=== PATIENT | female | born 1940 | race Caucasian/White ===

== ENCOUNTER 2019-05-25 13:50 | Outpatient (CLI) | payer MEDICARE, MEDICAID, SELFPAY | END 2019-05-25 13:51 | disposition home or self-care (01) | LOC: LAB 05-26 16:37 | PROVIDERS: PCP Internal Medicine; Visit Provider Internal Medicine | DX: N39.0 Urinary tract infection, site not specified (principal) | CPT/HCPCS: 81003; 87077; 87086; 87186 ==

== ENCOUNTER 2019-06-21 09:03 | Outpatient (CLI) | payer MEDICARE, MEDICAID, SELFPAY ==
--- NOTE | 2019-06-21 09:16 | MM_ITS ---
WS: [id number] BILATERAL SCREENING DIGITAL MAMMOGRAM WITH CAD HISTORY: SCREENING COMPARISON: 07/07/2016 and 05/01/2015 Bilateral CC and MLO views submitted. Computer aided detection analyzed. Breast composition: There are scattered areas of fibroglandular density. No suspicious masses, microc alcifications or architectural distortion. Bilateral scattered calcifications. Stable lymph node uppe r outer quadrant RIGHT breast. MM/[id number] IMPRESSION: BI-RADS: 2-Benign FOLLOW UP: 1 Year Follow-up
== END 2019-06-21 09:04 | disposition home or self-care (01) ==
LOC: RADSHAW 09:09
PROVIDERS: Family Provider Internal Medicine; PCP Internal Medicine; Visit Provider Plastic Surgery
DX: Z12.31 Encounter for screening mammogram for malignant neoplasm of breast (principal)
CPT/HCPCS: 77067

== ENCOUNTER 2019-07-14 22:19 | Inpatient (IN) | payer MEDICARE, MEDICAID, SELFPAY ==
[2019-07-14 22:20] VITALS: BP 188/76; PULSE 66; RESP 16; TEMP 36.8; O2SAT 99; BMI 34.7
--- NOTE | 2019-07-14 22:33 | CTR_ITS ---
PROCEDURE INFORMATION: Exam: CT Abdomen And Pelvis With Contrast Exam date and time: 07/14/2019 11:33 PM Age: 79 years old Clinical indication: Abdominal pain; Acute; Prior surgery; Surgery date: 6+ months; Surgery type: Hernia repair, cholecystectomy, appendectomy, hysterectomy; Additional info: Abd pain TECHNIQUE: Imaging protocol: Computed tomography of the abdomen and pelvis with intravenous contrast. Total DLP: 1803.49 mGy-cm Radiation optimization: All CT scans at this facility use at least one of these dose optimization techniques: automated exposure control; mA and/or kV adjustment per patient size (includes targeted exams where dose is matched to clinical indication); or iterative reconstruction. Contrast material: OMNI 300; Contrast volume: 95 ml; Contrast route: 22; COMPARISON: CT abdomen pelvis wo con [id number] 2017-03-26 21:02 FINDINGS: Lungs: There is a pulmonary parenchymal calcification consistent with remote granulomatous organism exposure. Liver: Normal. No mass. Gallbladder and bile ducts: Cholecystectomy clips in the right upper quadrant. Pronounced intra and extrahepatic biliary duct dilatation with the common biliary duct measuring 2.6 cm, recommend GI follow-up. Pancreas: Normal. No ductal dilation. Spleen: Normal. No splenomegaly. Adrenals: Normal. No mass. Kidneys and ureters: Numerous calculi in the left kidney, largest measuring 1.7 cm with an obstructing left ureteral pelvic junction 1 cm calculus causing moderate to severe left hydronephrosis. Stomach and bowel: Mild colonic diverticulosis without evidence for acute diverticulitis. Appendix: Appendectomy. Intraperitoneal space: Unremarkable. No free air. No significant fluid collection. Vasculature: Unremarkable. No abdominal aortic aneurysm. Lymph nodes: Unremarkable. No enlarged lymph nodes. Bladder: Unremarkable as visualized. Reproductive: Hysterectomy. Bones/joints: Screws in the proximal left femur. Moderate to severe lumbar spondylosis, stenosis, with a level convex curvature. Soft tissues: Unremarkable. CT/CT abdomen pelvis w con* [id number] IMPRESSION: 1. Cholecystectomy clips in the right upper quadrant. Pronounced intra and extrahepatic biliary duct dilatation with the common biliary duct measuring 2.6 cm, recommend GI follow-up. 2. Numerous calculi in the left kidney, largest measuring 1.7 cm with an obstructing left ureteral pelvic junction 1 cm calculus causing moderate to severe left hydronephrosis. Radiation Dose CTDIVOL = (mGy): DLP = 1803.49 (mGy-cm)
--- NOTE | 2019-07-14 22:35 | PC.NURSE ---
Patient states her pain started two days ago in her abdomen. Patient states that she is feeling hot and then cold. Patient states that the pain is on both sides and the bottom of her abdomen.
[2019-07-14 22:37] VITALS: BP 167/63; PULSE 60; RESP 14; O2SAT 98
[2019-07-14] MEDS: ondansetron 2 mg/ML SDV 2 mL 4 MG IVP (22:50)
[2019-07-14 22:51] VITALS: RESP 16
[2019-07-14] MEDS: sodium chloride 0.9% 1,000 ML 999 ML IV (22:51)
[2019-07-14] MEDS: morphine 4 mg/mL SDV 1 mL 2 MG IVP (22:51)
[2019-07-14 23:09] VITALS: BP 175/67; PULSE 63; RESP 14; O2SAT 98
[2019-07-14 23:09] LABS: Basophils % 0.2 %; Eosinophils # 0.1 10^3/uL (0.0-0.8); Eosinophils % 1.9 %; Hematocrit 31.9 % (37.0-47.0); Hemoglobin 9.8 g/dL (11.5-15.3); Lymphocytes % 19.2 %; Mean Corpuscular HGB Conc 30.7 g/dL (30.0-36.0); Mean Corpuscular Hemoglobin 29.1 pg (28.0-34.0); Mean Corpuscular Volume 94.7 fL (81-99); Mean Platelet Volume 10.1 fL (7.4-10.4); Monocytes # 0.6 10^3/uL (0.2-0.9); Monocytes % 11.3 %; Neutrophils # 3.5 10^3/uL (1.8-7.7); Nucleated Red Blood Cells % 0 %; Platelet Count 124 10^3/cmm (130-400); Red Blood Count 3.37 10^6/uL (4.1-5.3); Red Cell Distribution Width 12.9 % (12.1-15.1); White Blood Count 5.2 10^3/uL (4.0-10.0)
--- NOTE | 2019-07-14 23:16 | ED_ITS ---
Entered by Hansa Novoa, acting as scribe for Jamie Gamino DO HPI - Abdominal Pain General: Chief Complaint: Abdominal Pain Stated Complaint: ABD PAIN Time Seen by Provider: 07/14/19 22:30 History of Present Illness: HPI narrative: 79-year-old female presents from prison with complaining of left-sided abdominal pain frequency is dysuria. Denies fever. She denies any MD elicited complaint: flank pain Location: LLQ and L flank Quality: cramping and burning Radiation: suprapubic and L flank Associated Symptoms: Reports dysuria and fever(s); Denies chills, coffee ground emesis, constipation, GI cramping, diarrhea, heartburn, hematochezia, hematuria, hematemesis, melena, nausea, syncope and vomiting Review of Systems Narrative: 79yo female presents with abd pain, burning with urination, fever, and sweats. Patient denies any blood in urine, nausea, or diarrhea. She is a prison. Const: Reports: fever and other (sweats); Denies: chills, body aches, fatigue, malaise or night sweats Eyes: Denies: change in vision or blurry vision ENMT: Denies: throat pain, oral sores/lesions, dental pain, nasal discharge or nasal congestion Card: Denies: chest pain, palpitations, irregular heart rhythm, edema, syncope, shortness of breath on exertion, shortness of breath when lying down or leg pain with exertion Resp: Denies: shortness of breath, productive cough, non-productive cough or wheezing GI: Reports: abdominal pain; Denies: nausea, vomiting, vomiting blood, coffee grounds in vomit, difficulty swallowing, heartburn/indigestion, diarrhea, constipation, cramping, blood in stool or black tarry stool : Reports: painful urination; Denies: flank pain, urinary frequency, urinary urgency, urinary incontinence or blood in urine Musc: Denies: neck pain, back pain, extremity pain, extremity swelling, joint pain or joint swelling Skin/Breast: Denies: rash, itching or redness Neuro: Denies: headache, numbness in extremities, weakness in extremities, changes in sensation, lack of coordination, difficulty walking, frequent falls, dizziness, vertigo or confusion Psych: Denies: anxiety, depression, loss of interest, visual hallucinations, auditory hallucinations, suicidal ideation or homicidal ideation Endo: Denies: excessive urination, excessive thirst, tired all the time or cold intolerance Edu/Lymph: Denies: easy bruising, easy bleeding, petechiae, enlarged lymph nodes or tender lymph nodes PFSH ED PFSH: Medical History (Updated 07/15/19 @ 11:00 by Jamie Gamino DO) CAD in [place] artery Chronic back pain Chronic cystitis GERD (gastroesophageal reflux disease) History of CVA (cerebrovascular accident) History of diabetes mellitus Osteoarthritis Peripheral artery disease Polyneuropathy Post herpetic neuralgia Surgical History (Updated 07/15/19 @ 04:26 by Kin Carney MD) H/O bladder repair surgery H/O: hysterectomy Hip fracture History of cataract surgery History of cholecystectomy S/P tonsillectomy Family History (Updated 07/15/19 @ 04:27 by Kin Carney MD) Other Kidney malignancy Social History (Updated 07/15/19 @ 04:27 by Kin Carney MD) Smoking and tobacco status: former smoker Housing: Senior Living Marital status: Current occupational status: retired Physical Exam Const: COMMON NORMALS: average body habitus, oriented x3 and alert GENERAL APPEARANCE: cooperative, comfortable, well kempt and well developed NUTRITIONAL APPEARANCE: obese ORIENTATION/CONSCIOUSNESS: Yes awake, Yes oriented to person and Yes oriented to place HENMT: COMMON NORMALS: normocephalic, head/scalp atraumatic, EAC's normal, TM's normal bilaterally, external nose normal, moist oral mucous membranes and oropharynx normal HEAD & SCALP: normocephalic and atraumatic NOSE: external nose normal EXTERNAL AUDITORY CANAL: EAC's normal TYMPANIC MEMBRANE: TM's normal bilaterally MOUTH: oral and palatal mucosa normal, lip normal and tongue normal THROAT: posterior oropharynx normal and tonsils normal Eye: COMMON NORMALS: PERRL, EOMs intact bilaterally, conjunctivae normal and no scleral icterus CONJUNCTIVA: Yes conjunctivae normal PUPIL: Yes PERRL Neck/C-Spine: COMMON NORMALS: full ROM, no lymphadenopathy, supple, no meningeal signs and thyroid normal THYROID: thyroid normal and asymmetrical Lymph: LYMPHATIC: no lymphadenopathy noted Resp: COMMON NORMALS: normal respiratory effort, no retractions, no use of accessory muscles and clear to auscultation bilaterally AUSCULTATION: clear to auscultation bilaterally Cardio: COMMON NORMALS: regular rate and regular rhythm RATE: regular rate RHYTHM: regular rhythm HEART SOUNDS: no murmurs GI: COMMON NORMALS: normal to inspection, nondistended, normoactive bowel sounds, soft to palpation and no hepatosplenomegaly PALPATION: Yes soft and Yes no hepatosplenomegaly : BLADDER/KIDNEY EXAM: Yes CVA tenderness Back/Pelvis: GENERAL BACK: Yes CVA tenderness CVA tenderness: left LUMBAR SPINE/LOWER BACK: Yes normal to inspection Extremity: COMMON NORMALS: no clubbing, cyanosis or edema, no calf tenderness and no pedal edema Neuro: COMMON NORMALS: oriented x3 SENSORIUM/ORIENTATION: Yes alert, Yes oriented to person and Yes oriented to place MENINGEAL SIGNS: Yes no meningeal signs Psych: APPEARANCE: Yes well kempt Skin: COMMON NORMALS: no rashes or lesions noted and skin turgor normal GENERAL SKIN EXAM: no rashes or lesions noted and turgor normal Course ED course: Patient initially seen and labs ordered including a CT at change of shift CT is still pending. Care turned over to Dr. Bradley he will follow-up on the CT and make final disposition. Vital Signs: Vital signs: Vital Signs Temperature 98.9 F 07/15/19 10:10 Pulse Rate 73 07/15/19 10:10 Respiratory Rate 19 H 07/15/19 10:10 Blood Pressure 185/73 07/15/19 10:10 Pulse Oximetry 96 07/15/19 10:10 MDM - Abdominal Pain Lab Data: Labs: Lab Results 07/14/19 07/14/19 07/15/19 Range/Units 22:50 22:50 00:04 WBC 5.2 (4.0-10.0) 10^3/ uL RBC 3.37 L (4.1-5.3) 10^6/u L Hgb 9.8 L (11.5-15.3) g/dL Hct 31.9 L (37.0-47.0) % MCV 94.7 (81-99) fL MCH 29.1 (28.0-34.0) pg MCHC 30.7 (30.0-36.0) g/dL RDW 12.9 (12.1-15.1) % Plt Count 124 L (130-400) 10^3/c mm MPV 10.1 (7.4-10.4) fL Neut % (Auto) 67.0 % Lymph % (Auto) 19.2 % [place] % (Auto) 11.3 % Eos % (Auto) 1.9 % Baso % (Auto) 0.2 % Neut # (Auto) 3.5 (1.8-7.7) 10^3/u L Lymph # (Auto) 1.0 (0.8-4.8) 10^3/u L [place] # (Auto) 0.6 (0.2-0.9) 10^3/u L Eos # (Auto) 0.1 (0.0-0.8) 10^3/u L Baso # (Auto) 0.0 (0.0-0.1) 10^3/u L Nucleated RBC % (a uto) 0 % Nucleated RBCs # 0.0 /100WBC Sodium 132 L (136-145) mmol/L Potassium 4.1 (3.5-5.1) mmol/L Chloride 97 L (98-107) mmol/L Carbon Dioxide 26 (22-29) mmol/L Anion Gap 13.1 (5-19) BUN 16 (8-23) mg/dL Creatinine 0.9 (0.5-0.9) mg/dL Glucose 118 H (65-115) mg/dL Calcium 9.2 (8.5-10.5) mg/dL Total Bilirubin 0.8 (0.15-1.2) mg/dL AST 27 (0-32) U/L ALT 17 (0-33) U/L Alkaline Phosphata se 181 H (35-105) IU/L Total Protein 8.4 (6.6-8.7) g/dL Albumin 3.2 L (3.5-5.2) g/dL Globulin 5.2 H (1.3-4.6) g/dL Lipase 5 L (13-60) U/L Urine Color Straw (Yellow) Urine Appearance Clear (CLEAR) Urine pH 7 (5-7) Ur Specific Gravit y 1.010 (1.005-1.030) Urine Protein Neg (Negative) Urine Glucose (UA) Norm (Normal) Urine Ketones Negative (Negative) Urine Blood 2+ H (Negative) Urine Nitrate Negative (Negative) Urine Bilirubin Neg (NEGATIVE) Urine Urobilinogen Norm (Negative) mg/dL Ur Leukocyte Opal ase Negative (Negative) Urine RBC Rare (0-2) /hpf Urine WBC Rare (0-5) /hpf Ur Squamous Epith Cells Rare (0-5) Urine Bacteria Trace (NONE) Discharge Plan Discharge Admit Provider: Kin Carney Clinical Impression: Staghorn renal calculus, Calculus of proximal left ureter, Hypertension Condition: Stable Discharge Orders: Discharge Order (Routine); Ordered 07/15/19 Ordered By: Kin Carney Transfer Out of Facility (Order); Ordered 07/15/19 Ordered By: Kin Carney Interventions: ED Discharge Assessment Last Done: 07/15/19 03:04 Discharge Date/Time: 07/15/19 03:38 Coding Level of Care Code ED Deputy Controller for Chg Fwd Exam Comprehensive The documentation recorded by the Bright ellis Bailey Leadawn, accurately reflects the service I personally performed and the decisions made by Hanny espinoza Curtis L, DO Jul 14, 2019 22:19
[2019-07-14 23:29] LABS: Alanine Aminotransferase 17 U/L (0-33); Albumin Level 3.2 g/dL (3.5-5.2); Alkaline Phosphatase 181 IU/L (35-105); Anion Gap 13.1 (5-19); Aspartate Amino Transferase 27 U/L (0-32); Blood Urea Nitrogen 16 mg/dL (8-23); Calcium 9.2 mg/dL (8.5-10.5); Carbon Dioxide 26 mmol/L (22-29); Chloride 97 mmol/L (98-107); Globulin 5.2 g/dL (1.3-4.6); Glucose 118 mg/dL (65-115); Lipase 5 U/L (13-60); Potassium 4.1 mmol/L (3.5-5.1); Sodium 132 mmol/L (136-145); Total Bilirubin 0.8 mg/dL (0.15-1.2); Total Protein 8.4 g/dL (6.6-8.7)
[2019-07-15] VITALS (25 sets, daily range): BP systolic 160–224; BP diastolic 69–110; PULSE 67–83; RESP 14–20; TEMP 36.7–37.2; O2SAT 93–100
--- NOTE | 2019-07-15 | SCC_ITS ---
Procedure Done: Cystoscopy, left retrograde ureteropyelogram, left flexible ureteroscopy, unsuccessful attempt at left ureteral stenting. Could not pass guidewire 153.1 seconds of fluoroscopic guidance, for a cumulative dose of 73.88 mGy, was provided to Dr. Carney by the radiology department. C-arm images of the abdomen were saved for the patient's permanent record. [facility]
[2019-07-15] MEDS: sodium chlor 0.9% + KCl 20 mEq 20 MEQ/1,000 ML BAG 125 MEQ IV (00:16)
[2019-07-15 00:32] LABS: Add Urine Culture? No; Add Urine Microscopic? YES; Bacteria Urine TRACE; Bilirubin Urine Neg (NEGATIVE); Blood Urine 2+ (Negative); Glucose Urine UA Norm (Normal); Ketones Urine Negative (Negative); Leukocyte Esterase Urine Negative (Negative); Nitrate Urine Negative (Negative); Protein Urine Neg (Negative); RBC Urine RARE /hpf (0-2); Squamous Epithelial Cell Urine RARE (0-5); Urine Appearance Clear (CLEAR); Urine Color Straw (Yellow); Urobilinogen Urine Norm (Negative); WBC Urine RARE /hpf (0-5); pH Urine 7 (5-7)
--- NOTE | 2019-07-15 00:33 | PC.NURSE ---
Nurse notified me of patient on the bedside commode. Bedding was wet so linen and pads were changed and was assisted back into bed some assistance from both the nurse and I.
--- NOTE | 2019-07-15 00:47 | PC.NURSE ---
patient to CT
[2019-07-15] MEDS: iohexol 300 mg/mL 100 mL Btl IV (00:48)
[2019-07-15] MEDS: diphenhydrAMINE 50 mg/mL SDV 1mL 25 MG IVP (02:17)
[2019-07-15] MEDS: morphine 4 mg/mL SDV 1 mL IVP ×2 (02:55→05:52)
--- NOTE | 2019-07-15 03:35 | P.HP_ITS ---
Providers/Chief Complaint Admitting Physician: Kin Carney MD Primary Care Provider: Sudheer Wood MD Chief Complaint: ABD PAIN History of Present Illness Daksha Machuca is a 79 year old female well known to me for history of recurrent UTIs consistent with chronic cystitis. Also known to have an asymptomatic LEFT renal calculus that at one point she chose to have treatment with ESWL but canceled prior to because of lack of symptoms. I believe that occurred somewhere around 2005. The stone had been periodically imaged on KUBs and occasional CT and demonstrated no significant change. CT in 2016 showed stone in LLP without obstruction. KUB showed no change in stone. Renal US in confirmed no hydronephrosis. Was last seen in Feb and again in after > 2 year absence for RUTIs. Pansensitive E. coli treated at [facility] with Macrobid Low colony Proteus mirablilis resistant to Macrobid. Changed to CEFUROXIME based on sensitivity. At the February visit she complained of symptoms more consistent with CHRONIC CYSTITIS. Culture grew VRE and she was changed to Doxycycline. (Has a history of VRE in 2016 requiring PICC line and Daptomycin x 14 days.) At followup last visit 04/26/19 her chronic cystitis symptoms had improved but not resolved, KUB and US noted as above. The DOXYCYCLINE was continued and she was rescheduled for 3 months. In the past because of RUTIs she had been placed on METHENAMINE HIPPURATE for chronic suppression. Current stay initiated for symptoms consistent with renal colic on LEFT. Pain poorly controlled at [facility] and transported for further evaluation. Symptoms: She describes nausea vomiting low back pain and left-sided pain for about 2 weeks now. She also thinks she's had some symptoms suspicious for recurrent cystitis. Denies systemic symptoms currently. She is unaware of having been on any particular different antibiotics. Her chart currently reflects No antibiotics. describes her pain this morning is better but still significant. Workup: CT: Partial staghorn LEFT renal calculus new since prior imaging. LEFT UPJ stone with obstruction and moderate hydronephrosis. Was previously located in LLP WBC: 5.2 UA: No WBC, Nitrite negative. ED Plan: Admit for refractory pain. Keep NPO recommendations: 1. Cystoscopy and left ureteral stent placement this morning urgently given her history of recurrent UTIs an currently obstructing left proximal ureteral stone and evidence of a new partial staghorn. 2. Culture urine 3. I will ask the hospitalist team assistance in medical management postoperatively. 4. I discussed the procedure in detail with the patient. She has given informed consent to proceed for cystoscopy and left ureteral stent placement. Review of Systems Const: Reports: change in appetite, fatigue and malaise; Denies: fever or chills Eyes: Denies: change in vision ENMT: Reports: change in hearing (chronic hearing loss) Card: Denies: chest pain or palpitations Resp: Denies: shortness of breath, productive cough or wheezing GI: Reports: abdominal pain, nausea and vomiting : Reports: urinary frequency, urinary urgency and other (left flank pain) Skin/Breast: Denies: rash Neuro: Reports: weakness in extremities Psych: Reports: depression; Denies: anxiety Endo: Denies: cold intolerance or hot flashes Edu/Lymph: Denies: easy bruising, easy bleeding or enlarged lymph nodes All/Imm: Denies: hives or throat swelling Medications/Allergies Home Medications Medication Instructions Recorded Confirmed Last Taken Type Neurontin 800 mg PO DAILY 07/14/19 07/14/19 Unknown History bisacodyl 10 mg VT DAILY 07/14/19 07/14/19 Unknown History cholecalciferol (vitamin D3) 1,000 unit PO DAILY 07/14/19 07/14/19 Unknown History [Vitamin D3] gabapentin 600 mg PO DAILY 07/14/19 07/14/19 Unknown History pneumoc 13-steve conj-dip cr(PF) 0.5 ml IM UNK 07/14/19 07/14/19 Unknown History [Prevnar 13 (PF)] Allergies Allergy/AdvReac Type Severity Reaction Status Date / Time amoxicillin Allergy Unknown Verified 07/14/19 22:34 cefepime Allergy Unknown Verified 07/14/19 22:34 codeine Allergy Unknown Verified 07/14/19 22:34 Influenza Virus Vaccines Allergy Unknown Verified 07/14/19 22:34 iodine Allergy Unknown Verified 07/14/19 22:34 Quinolones Allergy Unknown Verified 07/14/19 22:34 Sulfonylureas Allergy Unknown Verified 07/14/19 22:34 PFSH Acute PFSH: Medical History (Updated 07/15/19 @ 04:26 by Kin Carney MD) CAD in [place] artery Chronic back pain Chronic cystitis GERD (gastroesophageal reflux disease) History of CVA (cerebrovascular accident) History of diabetes mellitus Osteoarthritis Peripheral artery disease Polyneuropathy Post herpetic neuralgia Surgical History (Updated 07/15/19 @ 04:26 by Kin Carney MD) H/O bladder repair surgery H/O: hysterectomy Hip fracture History of cataract surgery History of cholecystectomy S/P tonsillectomy Family History (Updated 07/15/19 @ 04:27 by Kin Carney MD) Other Kidney malignancy Social History (Updated 07/15/19 @ 04:27 by Kin Carney MD) Smoking and tobacco status: former smoker Housing: Long-Term Marital status: Current occupational status: retired Vitals/I&O/Wt Last Vital Signs Temp 98.3 F 07/14/19 22: Pulse 69 07/15/19 03:04 Resp 14 07/15/19 03:04 BP 180/90 07/15/19 03:04 Pulse Ox 93 07/15/19 03:04 Weight last 48 hrs Weight 190 lb Physical Exam Const: COMMON NORMALS: alert and well nourished GENERAL APPEARANCE: well kempt and well developed ORIENTATION/CONSCIOUSNESS: not confused HENMT: HEAD & SCALP: normocephalic and atraumatic Eye: COMMON NORMALS: conjunctivae normal and no scleral icterus Neck/C-Spine: GENERAL: Yes normal visual inspection Lymph: LYMPHATIC: no lymphadenopathy noted and no lymphedema noted Resp: COMMON NORMALS: normal respiratory effort EFFORT & INSPECTION: No labored and No actively coughing AUSCULTATION: clear to auscultation bilaterally Cardio: COMMON NORMALS: regular rate, regular rhythm and no murmurs RATE: regular rate RHYTHM: regular rhythm BRUITS: no carotid bruits Extremity: COMMON NORMALS: no clubbing, cyanosis or edema Neuro: SENSORIUM/ORIENTATION: Yes alert Psych: COMMON NORMALS: mental status grossly normal APPEARANCE: Yes grossly normal and Yes well kempt ATTITUDE: Yes calm and Yes engaged Skin: COMMON NORMALS: no rashes or lesions noted and skin turgor normal GENERAL SKIN EXAM: no rashes or lesions noted Data : 07/15/19 05:02 07/15/19 05:02 A&P Assessment and plan (1) Calculus of proximal left ureter: newly obstructing left UPJ stone. Concern because occurring in face of recurrent UTI and per patient's report increasing lower urinary tract symptoms consistent with her UTI previously Status: Acute Code(s): N20.1 - Calculus of ureter (2) Staghorn renal calculus: New finding Status: Acute Code(s): N20.0 - Calculus of kidney (3) History of recurrent UTI (urinary tract infection): she suspicious that her lower urinary tract symptoms are consistent with prior chronic cystitis. Status: Acute Code(s): Z87.440 - Personal history of urinary (tract) infections (4) Hypertension: required IV enalapril in the emergency department. Status: Acute Code(s): I10 - Essential (primary) hypertension Attestations Medical Necessity Statement*: refractory pain secondary to newly diagnosed left proximal ureteral stone. high-risk patient due to history of chronic cystitis and now with obstructing stone and evidence of a partial staghorn possibly related to chronic urinary tract infection. recommended surgical placement of left ureteral stent. Coding Level of Care Code Acute Instrument Worker for Paramjit Fwd Diagnoses Calculus of proximal left ureter N20.1 Staghorn renal calculus N20.0 History of recurrent UTI (urinary tract infection) Z87.440 Hypertension I10
[2019-07-15 05:38] LABS: Basophils % 0.2 %; Eosinophils # 0.1 10^3/uL (0.0-0.8); Eosinophils % 1.2 %; Hematocrit 30.9 % (37.0-47.0); Hemoglobin 9.3 g/dL (11.5-15.3); Lymphocytes # 0.6 10^3/uL (0.8-4.8); Lymphocytes % 14.5 %; Mean Corpuscular HGB Conc 30.1 g/dL (30.0-36.0); Mean Corpuscular Hemoglobin 29.4 pg (28.0-34.0); Mean Corpuscular Volume 97.8 fL (81-99); Mean Platelet Volume 10.1 fL (7.4-10.4); Monocytes # 0.5 10^3/uL (0.2-0.9); Monocytes % 11.8 %; Neutrophils # 3.1 10^3/uL (1.8-7.7); Neutrophils % 71.8 %; Nucleated Red Blood Cells % 0 %; Platelet Count 90 10^3/cmm (130-400); Red Blood Count 3.16 10^6/uL (4.1-5.3); Red Cell Distribution Width 12.9 % (12.1-15.1); White Blood Count 4.3 10^3/uL (4.0-10.0)
[2019-07-15] MEDS: enalaprilat 1.25 mg/mL Inj IVP (05:53)
[2019-07-15] MEDS: sodium chloride 0.9% 1,000 ML 100 ML IV (05:54)
[2019-07-15 06:08] LABS: Alanine Aminotransferase 15 U/L (0-33); Albumin Level 2.3 g/dL (3.5-5.2); Alkaline Phosphatase 151 IU/L (35-105); Aspartate Amino Transferase 25 U/L (0-32); Blood Urea Nitrogen 14 mg/dL (8-23); Calcium 8.6 mg/dL (8.5-10.5); Carbon Dioxide 23 mmol/L (22-29); Chloride 100 mmol/L (98-107); Globulin 4.9 g/dL (1.3-4.6); Glucose 108 mg/dL (65-115); Sodium 134 mmol/L (136-145); Total Bilirubin 0.7 mg/dL (0.15-1.2); Total Protein 7.2 g/dL (6.6-8.7)
--- NOTE | 2019-07-15 07:58 | SC_ITS ---
WS: [id number] C-arm FL for Urology REASON FOR EXAM: intra-op FINDINGS: C-arm images intraoperative were nondiagnostic. SC/C-arm FL for Urology IMPRESSION: Nondiagnostic views intraoperative.
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
[2019-07-15] MEDS: iohexol 300 mg/mL 50 mL Btl (OR ONLY) XX (08:42)
--- NOTE | 2019-07-15 09:08 | ANE.PACU2 ---
 Inpatient post-anesthesia follow up: Airway intact: Yes Vital signs: Temperature 98.2 F Pulse Rate [Monito r] 71 Pulse Rate 67 Respiratory Rate 16 Blood Pressure [Ri ght Arm] 200/76 Blood Pressure 160/82 Pulse Oximetry 100 Oxygen Delivery Me thod Room Air Oxygen Flow Rate Fraction of Inspir ed Oxygen Hydration adequate: Yes Nausea and vomiting: No Mental status: Baseline
--- NOTE | 2019-07-15 09:23 | P.OP_ITS ---
Operative Report Date of procedure: July 15, 2019 Pre-op Diagnosis: Left UPJ stone with obstruction and history of recurrent UTI/chronic cystitis Post-op diagnosis: same Post-op Diagnosis: Complex left UPJ obstruction from stone. Could not bypass the stone with the guidewire, Glidewire, even with assistance via flexible ureteroscopy and open-ended ureteral catheter. Post-op Findings: High-grade obstruction with almost no contrast able to be manipulated proximal to the obstructing stone. Could not get a guidewire from below despite multiple different techniques and tools. Procedure Done: Cystoscopy, left retrograde ureteropyelogram, left flexible ureteroscopy, unsuccessful attempt at left ureteral stenting. Could not pass guidewire Implants: None Specimens removed/disposition: None Pathology: none sent Surgeon: Angelika Anesthesia: General Estimated blood loss: None Urine output: Not measured Complications: Unsuccessful attempt at ureteral stenting for high-grade obstruction and patient with history of recurrent UTIs and per her report increasing symptoms associated with that. Findings: Impacted stone with possible proteinaceous type matrix material impassable with guidewires from below. Terminated procedure after multiple failed attempts. [place] the safer alternative was transfer to [place] for interventional radiology and left percutaneous nephrostomy and if possible conversion to internal antegrade placed stent. Condition: stable Disposition: PACU Brief History: Mrs. Machuca is a very pleasant 79-year-old white female who I have followed for years for recurrent urinary tract infections. She has been somewhat sporadic on her follow-up. Has had multi-resistant organisms for UTI and more recently has been placed on doxycycline for chronic suppression for enterococcus with clinical improvement in symptoms. Recently it appears that she has been off of that medication and over the last couple weeks has been complaining of some increasing lower urinary tract symptoms. Well-defined history of stone in her left kidney in the lower pole. Many years ago she was going to have it treated but ultimately changed her mind. There was no particular change noted on long-term follow-up. Last imaging was in March 2019 with an unchanged KUB and an ultrasound showing no evidence of hydronephrosis. Her clinical picture fit that. She was not having any symptoms and wanted to continue conservative surveillance. Presented to the emergency department late last night with complaints of increasing renal colicky symptoms over the last 2 days but had also complained of some nausea and vomiting ongoing for almost 2 weeks per her report. This is not well documented. She stated upon admission that she was having some increasing lower urinary tract symptoms that she associated with previous UTIs. Urinalysis looked pretty bland. White count was normal. CT scan though showed what appeared to be a partial staghorn not previously identified in the renal pelvis, a left lower pole stone, and a previously located stone from the left lower pole now obstructing the left UPJ. She had significant hydronephrosis not seen on her previous ultrasound in March. Hemodynamically she was stable but felt to be a high risk for obstructive pyelonephritis/sepsis development given her history of recurrent UTIs, recently off antibiotics, increasing lower urinary tract symptoms suspicious for her previous episodes of cystitis, and new onset of high-grade obstruction. It was recommended that we go urgently to the OR for stent placement. Procedure: After urgent evaluation examination and obtaining of informed consent she was taken to the operating suite on 07/15/2019 for stent placement. After adequate level of anesthesia was obtained appropriate timeout was performed, SCDs confirmed to be functioning, preoperative antibiotics administered, beta- homero protocol confirmed she was prepped and draped in usual sterile fashion in dorsolithotomy position. Careful attention was paid to avoiding pressure points. 21 Maur[place] cystoscope with 30 degree lens was introduced into the urethral meatus and advanced into the bladder under videoscopy. Bladder was systematically examined. She did have some purulent material at the ureteral orifice but it was not continually draining. There was some more in the bladder but no obvious acute changes otherwise. The stone appeared to be easily identified on the fluoroscopy. Flexible tip guidewire was easily advanced up the ureter to this point but could not be easily manipulated beyond the stone. An open-ended ureteral catheter was advanced over the guidewire to just below the stone and then the wire was advanced again but with the same result. The wire seem to be curling around the stone but not advancing in a proximal direction. A zip wire was then used through the open-ended ureteral catheter with the same result. At this point it was decided to inject some contrast to confirm appropriate position. The wire was removed open-ended ureteral catheter was utilized as a conduit for contrast and showed filling of the ureter to this point but with no contrast being able to be pushed proximal to the stone. It was decided to try a flexible ureteroscope to see if I could identify the true lumen or potentially manipulate the stone to allow passage of the wire. The patient was placed in steep Trendelenburg. A flexible tip guidewire was advanced to below the stone and a 24 cm ureteral access sheath was advanced over the guidewire to its hub. The flexible ureteroscope was advanced over the guidewire to just below the s tone and the guidewire was removed. Careful inspection failed to reveal a clear path. There appeared to be proteinaceous type material occluding the lumen and also potentially involving a stone that was hard to identify. Utilizing the flexible ureteroscope visualization a Glidewire was passed but it could not go any farther than previously identified with blind passage. This was a long arduous process but carefully administered to avoid further damage. Eventually it became clear that it was futile to continue and to avoid unnecessary trauma it was decided to abort this procedure [facility] access possibly antegrade stent placement. That service is not available at [facility]. We would need to transfer to [place] for availability of that. The patient remained hemodynamically stable throughout the procedure. She was awakened in the operating room at this point after bladder was drained with a Adam catheter. Was transferred to the PACU for recovery. PLANS: Seek transfer for the above mentioned procedure I have spoken with the hospitalist service at [facility] who has accepted transfer. I spoke to Dr. White through the I will contact urology counter professional to inform them of her status.
[2019-07-15] MEDS: fentaNYL 50 mcg/mL INJ 2mL IVP ×2 (09:26→09:31)
[2019-07-15] MEDS: hyDRALAzine 20 mg/mL INJ 1 mL 10 MG IVP ×2 (09:32→09:52)
--- NOTE | 2019-07-15 09:46 | P.TS_ITS ---
Transfer Summary Providers Date of Admission: 07/15/19 02:19 Date of Discharge: 07/15/19 Attending Provider at Admission: Kin Carney MD Attending Provider at Transfer: Kin Carney MD Primary Care Provider: Sudheer Wood MD Anticipated Date of Transfer: Anticipated date of transfer: 07/15/19 Receiving Facility & Provider: Receiving Provider: [Christopher] Receiving facility: [[facility]] Diagnoses at Discharge Discharge Diagnosis (1) Calculus of proximal left ureter: Status: Acute Problem details: Could not bypass from retrograde route on 07/15/2019. Transferring for interventional radiology percutaneous nephrostomy possible antegrade stent gabe cement (2) Staghorn renal calculus: Status: Acute (3) History of recurrent UTI (urinary tract infection): Status: Acute Problem details: History of chronic cystitis (4) Hypertension: Status: Acute Reason for Visit Reason for Visit: Reason For Visit: Refractory left renal colic, Brief History: Very pleasant 79-year-old white female well-known to me for history of left renal calculus, recurrent UTIs with multi resistant organisms at times. Has recently been maintained on DOXYCYCLINE for chronic cystitis with clinical improvement in symptoms. Has been known to have a left renal calculus for over 15 years with original plan to treat at that time but changed her mind and really has had no problems related to the stone until this admission. Presented with left renal colicky type pain, nausea and vomiting, no evidence of overt obstructive pyelonephritis but CT scan demonstrated partial staghorn, left lower pole stone and a left UPJ stone causing high-grade obstruction. Pain control was less than adequate and the intermediate setting and was difficult to obtain in the emergency department for that reason she was admitted for further evaluation and treatment. Hospital Course Hospital Course: Upon evaluation this morning she was still hurting. She felt that her pain was better controlled with the use of parenteral narcotics but still problematic. Hemodynamically she was stable but the concern for potential obstructive pyelonephritis given her history of ongoing chronic cystitis, apparently recently being off of her antibiotics, and complaints of irritative voiding symptoms increasing since that time it was decided to take her to the operating room for stent placement. In the operating suite she was found to have a high-grade obstruction of her left UPJ from the stone and possibly proteinaceous matrix. I could not manipulate a guidewire beyond the stone despite multiple wires and ureteroscopy as well as open-ended ureteral catheter. In order to avoid damage to the UPJ it was eventually decided to forego further attempt in a retrograde fashion and instead transfer for interventional radiology for percutaneous nephrostomy possible antegrade stent placement. I have made arrangements with [facility] in [place] for transfer. I spoke with Dr. White of the hospitalist service who accepted the transfer. I also spoke with Dr. Cas Diane the urologist guidance and control system engineer and updated him on the status of the patient and what has been tried. I reviewed the status of the patient with her family friend who is with her at the hospital. She apparently has communicated with the patient's son. Physical Exam Const: OTHER: Still in pain as expected. HENMT: GENERAL EAR: hearing grossly impaired Resp: COMMON NORMALS: normal respiratory effort EFFORT & INSPECTION: No tachypneic and No respiratory distress Cardio: COMMON NORMALS: regular rate and regular rhythm RATE: regular rate RHYTHM: regular rhythm Psych: COMMON NORMALS: thought process normal, cooperative and speech normal SPEECH: Yes normal speech THOUGHT PROCESS: normal thought process TS Data Data Completed and Pending: Completed Studies During Hospitalization Category Date Time Status CT abdomen pelvis w con* [id number] Stat Cat Scan 07/14/19 22:33 Completed Labs from last 24 hours 07/15/19 07/15/19 07/15/19 05:02 05:02 00:04 WBC 4.3 RBC 3.16 L Hgb 9.3 L Hct 30.9 L MCV 97.8 MCH 29.4 MCHC 30.1 RDW 12.9 Plt Count 90 L MPV 10.1 Neut % (Auto) 71.8 Lymph % (Auto) 14.5 [place] % (Auto) 11.8 Eos % (Auto) 1.2 Baso % (Auto) 0.2 Neut # (Auto) 3.1 Lymph # (Auto) 0.6 L [place] # (Auto) 0.5 Eos # (Auto) 0.1 Baso # (Auto) 0.0 Nucleated RBC % (a uto) 0 Nucleated RBCs # 0.0 Sodium 134 L Potassium 4.0 Chloride 100 Carbon Dioxide 23 Anion Gap 15.0 BUN 14 Creatinine 0.8 Glucose 108 Calcium 8.6 Total Bilirubin 0.7 AST 25 ALT 15 Alkaline Phosphata se 151 H Total Protein 7.2 Albumin 2.3 L Globulin 4.9 H Lipase Urine Color Straw Urine Appearance Clear Urine pH 7 Ur Specific [place] 1.010 Urine Protein Neg Urine Glucose (UA) Norm Urine Ketones Negative Urine Blood 2+ H Urine Nitrate Negative Urine Bilirubin Neg Urine Urobilinogen Norm Ur Leukocyte Opal ase Negative Urine RBC Rare Urine WBC Rare Ur Squamous Epith Cells Rare Urine Bacteria Trace 07/14/19 07/14/19 22:50 22:50 WBC 5.2 RBC 3.37 L Hgb 9.8 L Hct 31.9 L MCV 94.7 MCH 29.1 MCHC 30.7 RDW 12.9 Plt Count 124 L MPV 10.1 Neut % (Auto) 67.0 Lymph % (Auto) 19.2 [place] % (Auto) 11.3 Eos % (Auto) 1.9 Baso % (Auto) 0.2 Neut # (Auto) 3.5 Lymph # (Auto) 1.0 [place] # (Auto) 0.6 Eos # (Auto) 0.1 Baso # (Auto) 0.0 Nucleated RBC % (a uto) 0 Nucleated RBCs # 0.0 Sodium 132 L Potassium 4.1 Chloride 97 L Carbon Dioxide 26 Anion Gap 13.1 BUN 16 Creatinine 0.9 Glucose 118 H Calcium 9.2 Total Bilirubin 0.8 AST 27 ALT 17 Alkaline Phosphata se 181 H Total Protein 8.4 Albumin 3.2 L Globulin 5.2 H Lipase 5 L Urine Color Urine Appearance Urine pH Ur Specific [place] y Urine Protein Urine Glucose (UA) Urine Ketones Urine Blood Urine Nitrate Urine Bilirubin Urine Urobilinogen Ur Leukocyte Opal ase Urine RBC Urine WBC Ur Squamous Epith Cells Urine Bacteria Vitals: Last Vital Signs Temp 98.0 F 07/15/19 09:14 Pulse 69 07/15/19 09:35 Resp 16 07/15/19 09:35 BP 224/77 07/15/19 09:35 Pulse Ox 99 07/15/19 09:35 TS Medications Medications Home Medications Neurontin 800 mg PO DAILY 07/14/19 [History Confirmed 07/14/19] bisacodyl 10 mg ID DAILY 07/14/19 [History Confirmed 07/14/19] cholecalciferol (vitamin D3) [Vitamin D3] 1,000 unit PO DAILY 07/14/19 [History Confirmed 07/14/19] gabapentin 600 mg PO DAILY 07/14/19 [History Confirmed 07/14/19] pneumoc 13-steve conj-dip cr(PF) [Prevnar 13 (PF)] 0.5 ml IM UNK 07/14/19 [History Confirmed 07/14/19] Active Medications Dexamethasone (Decadron) 4 mg IVP Q5M PRN PRN Reason: Nausea unrelieved by Reglan Stop: 07/16/19 09:03 Enalaprilat (Vasotec) 1.25 mg IVP Q6H RAMO Last Admin: 07/15/19 05:53 Dose: 1.25 mg Documented by: Hydralazine HCl (Apresoline) 10 mg IVP Q10M PRN PRN Reason: For SBP >180 or DBP >100 Last Admin: 07/15/19 09:32 Dose: 10 mg Documented by: Hydromorphone HCl (Dilaudid Inj) 0.25 mg IVP Q10M PRN PRN Reason: Pain level 4-6 PACU Phase I Stop: 07/16/19 09:03 Hydromorphone HCl (Dilaudid Inj) 0.5 mg IVP Q10M PRN PRN Reason: Pain level 7-10 PACU Phase I Stop: 07/16/19 09:03 Sodium Chloride (Sodium Chloride 0.9%) 1,000 mls @ 100 mls/hr IV .Q10H RAMO Last Admin: 07/15/19 05:54 Dose: 100 mls/hr Documented by: Sodium Chloride (Sodium Chloride 0.9%) 500 mls @ 999 mls/hr IV .Q31M PRN PRN Reason: HYPOTENSION Meperidine HCl (Demerol) 12.5 mg IVP Q5M PRN PRN Reason: Shivering PACU Phase I Stop: 07/16/19 09:03 Metoclopramide HCl (Reglan) 10 mg IVP Q5M PRN PRN Reason: Nausea unrelieved by Zofran Stop: 07/16/19 09:03 Morphine Sulfate (Morphine) 4 mg IVP Q4H PRN PRN Reason: SEVERE PAIN Last Admin: 07/15/19 05:52 Dose: 4 mg Documented by: Morphine Sulfate (Morphine) 2 mg IVP Q5M PRN PRN Reason: Pain level 2-5 PACU Phase I Stop: 07/16/19 09:03 Morphine Sulfate (Morphine) 2 mg IVP Q2M PRN PRN Reason: Pain level 6-10 PACU Phase I Stop: 07/16/19 09:03 Morphine Sulfate (Morphine) 0 mg IVP ONCE PRN PRN Reason: Breakthrough Pain PACU PhaseII Stop: 07/16/19 09:03 Ondansetron HCl (Zofran) 4 mg IVP Q6H PRN PRN Reason: NAUSEA AND VOMITING Ondansetron HCl (Zofran) 4 mg IVP Q5M PRN PRN Reason: Nausea PACU Phase I Stop: 07/16/19 09:03 Ondansetron HCl (Zofran) 4 mg IVP Q15M PRN PRN Reason: Nausea/Vomiting PACU PHASE II Discharge Plan Discharge Patient Disposition: Home, Self-Care Condition: Stable Prescriptions: Held gabapentin 600 mg Tablet 600 mg PO DAILY RF: 0 Hold Instructions: Resume on 07/17/19. bisacodyl 10 mg Suppository 10 mg ID DAILY RF: 0 Hold Instructions: Resume on 07/17/19. Prevnar 13 (PF) 0.5 mL Syringe 0.5 ml IM UNK RF: 0 Hold Instructions: Resume on 07/17/19. Neurontin 800 mg Tablet 800 mg PO DAILY RF: 0 Hold Instructions: Resume on 07/17/19. Vitamin D3 25 mcg (1,000 unit) Tablet 1,000 unit PO DAILY RF: 0 Hold Instructions: Resume on 07/17/19. Discharge Orders: Discharge Order (Routine); Ordered 07/15/19 Ordered By: Kin Carney Referrals: Sudheer Wood MD [Primary Care Provider] - Activity Restrictions/Additional Instructions: Being transferred to [facility] for elevation of care via interventional radiology left percutaneous nephrostomy tube placement. Transfer Attestations Time Spent in Transfer Care*: greater than 30 min Quality Metrics Clinical Quality Measures: During this hospital stay, did patient experience: None Coding Level of Care Code Acute Regulatory Analyst for g Fwd Diagnoses Calculus of proximal left ureter N20.1 Staghorn renal calculus N20.0 History of recurrent UTI (urinary tract infection) Z87.440 Hypertension I10
[2019-07-15] MEDS: morphine 4 mg/mL SDV 1 mL 2 MG IVP ×3 (09:49→09:59)
[2019-07-15] MEDS: HYDROmorphone 1 mg/mL INJ 1 mL 0.5 MG IVP (09:59)
--- NOTE | 2019-07-15 10:34 | SUR.PHASEI ---
0914- RECEIVED PATIENT IN PACU FROM OR VIA [facility]. RESP ARE EVEN AND NONLABORED. SAT 99% WITH 6L PER SIMPLE MASK. SHE IS AWAKE BUT DROWSY. PEREIRA CATHETER IS PATENT AND DRAINING CLEAR LIGHT PINK URINE. DR GARZA AT THE BEDSIDE MONITORING BLOOD PRESSURE. MEDICATED FOR PAIN PER ORDERS 0930- NEW ORDERS RECEIVED FOR BP 0935- FAMILY AT THE BEDSIDE 0950- NEW ORDERS RECEIVED TO MOVE TO [facility] ORDERS FOR PAIN INTERVENTION 1015- TRANSFERRED PATIENT FROM PACU TO . RESP ARE EVEN AND NONLABORED. SAT 96% WITH ROOM AIR. SHE IS AWAKE AND ALERT, DROWSY BUT AROUSES EASILY TO VERBAL STIMULI. PEREIRA CATHETER IS PATENT AND DRAINING CLEAR LIGHT PINK URINE. SHE REPORTS IMPROVED PAIN TO BACK AND BLADDER. DENIES NAUSEA. TRANSITION OF CARE TO [facility]. VITALS STABLE UPON TRANSFER.
[2019-07-15] MEDS: morphine 4 mg/mL SDV 1 mL 1 MG IVP (12:08)
--- NOTE | 2019-07-17 16:24 | P.MISC_ITS ---
Miscellaneous Note Note: Ms. Machuca was admitted through the emergency department for refractory pain, high-grade obstruction of the left proximal ureteral stone and failure of conservative management at the halfway. Because of her history of recurrent urinary tract infection/chronic cystitis it was felt that her risk for obstructive pyelonephritis was substantial. She was placed on inpatient status because of the anticipation that her care would extend beyond 2 midnights in the hospital. She was transferred to [place] for interventional radiology and because of that did not spend 2 nights in our hospital.
== END 2019-07-15 12:18 | disposition short-term general hospital (02) | DRG 694 ==
LOC: ER 07-15 02:17 → MEDSURG 07-15 02:50
PROVIDERS: Family Medicine; Admitting Provider Urology; Emergency Provider Emergency Medicine; Family Provider Internal Medicine; PCP Internal Medicine; Visit Provider Urology
PROC: 0TJB8ZZ Inspection of Bladder, Via Natural or Artificial Opening Endoscopic (ICD-10-PCS; CPT 52000; principal; 2019-07-15 08:10)
PROC: 0TJ98ZZ Inspection of Ureter, Via Natural or Artificial Opening Endoscopic (ICD-10-PCS; CPT 52351; 2019-07-15 08:10)
DX: N20.2 Calculus of kidney with calculus of ureter (principal); B02.29 Other postherpetic nervous system involvement; Z87.442 Personal history of urinary calculi; Z87.440 Personal history of urinary (tract) infections; N30.20 Other chronic cystitis without hematuria; I25.10 Atherosclerotic heart disease of native coronary artery without angina pectoris; G89.29 Other chronic pain; M54.9 Dorsalgia, unspecified; K21.9 Gastro-esophageal reflux disease without esophagitis; Z86.73 Personal history of transient ischemic attack (TIA), and cerebral infarction without residual deficits; M19.90 Unspecified osteoarthritis, unspecified site; E11.51 Type 2 diabetes mellitus with diabetic peripheral angiopathy without gangrene; E11.42 Type 2 diabetes mellitus with diabetic polyneuropathy; Z87.891 Personal history of nicotine dependence; I10 Essential (primary) hypertension
CPT/HCPCS: 12345; 36415; 74177; 76000; 80053; 81001; 83690; 85025; 96375; 99283; J0360; J1100; J1170; J1200; J1580; J2001; J2270; J2370; J2405; J2704; J2710; J3010; J3490; J7030; Q9967

== ENCOUNTER 2019-08-30 08:01 | Outpatient (CLI) | payer OTHER, MEDICAID, SELFPAY ==
--- NOTE | 2019-08-30 08:00 | XR_ITS ---
WS: [id number] ABDOMEN 1 VIEW(S) HISTORY: RETAINED URETERAL STENT COMPARISON: 04/26/2019 LEFT double pigtail ureteral stent is present. No calcifications along the stent. Mild fecal retention. Prior cholecystectomy. 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 Prior pinning of the LEFT hip. XR/XR [place]UB [id number] IMPRESSION: 1. LEFT ureteral stent appears in good position. 2. No calcifications along the course of the stent.
== END 2019-08-30 08:02 | disposition home or self-care (01) ==
LOC: RADWPI 08:06
PROVIDERS: Family Provider Internal Medicine; PCP Internal Medicine; Visit Provider Urology
DX: Z96.0 Presence of urogenital implants (principal)
CPT/HCPCS: 74018; 81001

== ENCOUNTER 2019-12-06 12:37 | Outpatient (CLI) | payer MEDICARE, MEDICAID, SELFPAY ==
--- NOTE | 2019-12-06 12:30 | XRR_ITS ---
PROCEDURE INFORMATION: Exam: XR Abdomen, 1 View Exam date and time: 12/06/2019 1:04 PM Age: 79 years old Clinical indication: Condition or disease; Kidney or ureter condition; Calculus (stone) in ureter; Prior surgery; Surgery date: 1-6 months; Surgery type: Kidney stone; Patient HX: Ureteral stone follow up. Previous XR 08/30/19 TECHNIQUE: Imaging protocol: XR of the abdomen. Views: Frontal supine view of the abdomen. 1 View. COMPARISON: CR XR KUB [id number] 08/30/2019 8:27 AM FINDINGS: Gastrointestinal tract: There is bowel gas without dilation. There is stool throughout colon. Organs: No definite renal or ureteral calcifications are seen. Bones/joints: There is a thoracolumbar spine scoliosis. XR/XR KUB [id number] IMPRESSION: No definite renal or ureteral calcifications are seen. If there is desire for further evaluation, a CT scan could be performed.
== END 2019-12-06 12:38 | disposition home or self-care (01) ==
LOC: RAD 12:41
PROVIDERS: Family Provider Internal Medicine; PCP Internal Medicine; Visit Provider Urology
DX: N20.1 Calculus of ureter (principal)
CPT/HCPCS: 74018; 80053; 81001; 87077; 87086; 87186

== ENCOUNTER 2019-12-26 09:20 | Outpatient (CLI) | payer MEDICARE, MEDICAID, SELFPAY ==
--- NOTE | 2019-12-26 09:30 | CT_ITS ---
WS: [id number] CT ABDOMEN PELVIS TECHNIQUE: Noncontrast CT of the abdomen and pelvis with coronal and sagittal reformatted images. CLINICAL INFORMATION: UROLITHIASIS COMPARISON: None. DLP: 1096.[address] scans at [facility] use at least one of these dose optimization techniques: automat ed exposure control; mA and/or kV adjustment per patient size (includes targeted exams where dose is matched to clinical indication); or iterative reconstruction. FINDINGS: Cholecystectomy clips. Postoperative changes GE junction. Lung bases are well aerated. Dilatation com mon bile duct postcholecystectomy appears unchanged. Mild intrahepatic biliary duct dilatation. Splen omegaly. Fatty atrophy of the pancreas. Adrenal glands are normal. Bilateral renal cortical atrophy. No hydronephrosis. No obstructing renal or ureteral calculi. Previously described left hydronephrosis and calculi have resolved. Aortic calcification. Normal caliber abdominal aorta. Sigmoid colonic constipation. No evidence of hi gh-grade small or large bowel obstruction. No pelvic or inguinal lymphadenopathy. Screw fixation left hip. Lumbar scoliosis convex left. CT/CT kidney stone [id number] IMPRESSION: 1. Bilateral renal cortical atrophy. No hydronephrosis. No obstructing renal o r ureteral calculi. 2. Previously described left hydronephrosis and obstructing left renal calculi have resolved. 3. Prior cholecystectomy with unchanged Bile duct and intrahepatic dilatation. 4. Postoperative changes GE junction. 5. Splenomegaly unchanged. 6. No other significant changes from previous.
== END 2019-12-26 09:21 | disposition home or self-care (01) ==
LOC: RADWPI 09:24
PROVIDERS: Family Provider Internal Medicine; PCP Internal Medicine; Visit Provider Urology
DX: N20.9 Urinary calculus, unspecified (principal); N26.1 Atrophy of kidney (terminal); R16.1 Splenomegaly, not elsewhere classified; N30.80 Other cystitis without hematuria
CPT/HCPCS: 74176; 81001

== ENCOUNTER 2020-02-13 08:20 | Outpatient (CLI) | payer MEDICARE, MEDICAID, SELFPAY ==
--- NOTE | 2020-02-13 08:15 | XRR_ITS ---
PROCEDURE INFORMATION: Exam: XR Abdomen, 1 View Exam date and time: 02/13/2020 8:44 AM Age: 80 years old Clinical indication: Condition or disease; Other: Urolithiasis; Prior surgery; Surgery type: Hysto, gb, appy, hernia TECHNIQUE: Imaging protocol: XR of the abdomen. Views: Frontal supine view of the abdomen. 1 View. COMPARISON: CT kidney stone [id number] 12/26/2019 9:38 AM FINDINGS: Gastrointestinal tract: Large amount of stool throughout the colon and rectum. This partially obscures the kidneys and ureters. Organs: No radiopaque renal or ureteral calculi visualized. Bones/joints: Curvature of the lumbar spine convex to the left associated with multilevel disc degeneration. Prior ORIF of a left femoral neck fracture with 3 screws. XR/XR KUB [id number] IMPRESSION: No radiopaque renal or ureteral calculus visualized, but the kidneys and ureters are partially obscured by enteric contents.
== END 2020-02-13 08:21 | disposition home or self-care (01) ==
LOC: RAD 08:24
PROVIDERS: PCP Internal Medicine; Visit Provider Urology
DX: N20.9 Urinary calculus, unspecified (principal)
CPT/HCPCS: 74018; 81001

== ENCOUNTER 2020-05-14 07:54 | Outpatient (CLI) | payer MEDICARE, MEDICAID, SELFPAY ==
--- NOTE | 2020-05-14 08:30 | XRR_ITS ---
PROCEDURE INFORMATION: Exam: XR Abdomen, 1 View Exam date and time: 05/14/2020 8:12 AM Age: 80 years old Clinical indication: Abdominal pain; Flank; Left; Prior surgery; Surgery date: 6+ months; Surgery type: Kidney stone 8 months; Additional info: Urolithiasis TECHNIQUE: Imaging protocol: XR of the abdomen. Views: Frontal supine view of the abdomen. 1 View. COMPARISON: CR XR KUB [id number] 02/13/2020 8:41 AM FINDINGS: Gastrointestinal tract: bowel gas pattern is nonspecific. Air filled large bowel including distal rectal gas. Scattered loops of air filled small bowel none of which are dilated. Large amount of stool throughout the large bowel. Organs: No calcifications are seen overlying the renal outlines or the expected course of the right or left ureters. No suspicious calcifications within the pelvis. Bones/joints: Severe degenerative changes in the spine. XR/XR KUB [id number] IMPRESSION: 1. Bowel gas pattern is nonspecific. Air filled large bowel including distal rectal gas. Scattered loops of air filled small bowel none of which are dilated. 2. Large amount of stool throughout the large bowel. 3. No calcifications are seen overlying the renal outlines or the expected course of the right or left ureters. No suspicious calcifications within the pelvis.
== END 2020-05-14 07:55 | disposition home or self-care (01) ==
PROVIDERS: PCP Internal Medicine; Visit Provider Urology
DX: N20.9 Urinary calculus, unspecified (principal)
CPT/HCPCS: 74018; 81003; 87086

== ENCOUNTER 2020-05-21 12:30 | Outpatient (CLI) | payer MEDICARE, MEDICAID, SELFPAY ==
--- NOTE | 2020-05-21 13:00 | CT_ITS ---
WS: [id number] CT ABDOMEN PELVIS TECHNIQUE: Noncontrast CT of the abdomen and pelvis with coronal and sagittal reformatted images. CLINICAL INFORMATION: STONE COMPARISON: CT 8 2019 DLP: 1747.[address] scans at [facility] use at least one of these dose optimization techniques: automat ed exposure control; mA and/or kV adjustment per patient size (includes targeted exams where dose is matched to clinical indication); or iterative reconstruction. FINDINGS: Noncontrast kidneys are unremarkable. Bilateral renal cortical atrophy appears unchanged. N onobstructing tiny left calyceal tip calculus is stable. No obstructing renal or ureteral calculi. Anand th ureters are decompressed. No hydronephrosis. Kidneys appear unchanged compared to previous. Cholecystectomy clips. Prior postoperative changes GE junction. Noncontrast liver is unremarkable. Di lated common bile duct post cholecystectomy is unchanged. Mild intrahepatic biliary ductal dilatation . Stable splenomegaly measuring 14.1 cm. Fatty atrophy of the pancreas. Adrenal glands are normal. Abdominal aortic calcification. No abdominal aortic aneurysm. No pelvic or inguinal lymphadenopathy. Prior screw fixation left hip. Lumbar scoliosis. CT/CT kidney stone [id number] IMPRESSION: 1. Noncontrast kidneys are unremarkable. No hydronephrosis in either kidney. B ilateral renal cortical atrophy. 2. Stable tiny nonobstructing left calyceal tip calculus. No obstructing renal or ureteral calculi. 3. Urine distended bladder appears unremarkable. 4. Stable enlarged common bile duct with intrahepatic biliary ductal dilatatio n postcholecystectomy. This is unchanged. 5. Splenomegaly measuring 14.1 cm is unchanged. 6. Prior postoperative changes the GE junction.
== END 2020-05-21 12:31 | disposition home or self-care (01) ==
LOC: RAD 12:35
PROVIDERS: PCP Internal Medicine; Visit Provider Urology
DX: N20.9 Urinary calculus, unspecified (principal); R16.1 Splenomegaly, not elsewhere classified; N26.1 Atrophy of kidney (terminal)
CPT/HCPCS: 74176; 81003

== ENCOUNTER 2020-06-27 14:22 | Outpatient (CLI) | payer MEDICARE, MEDICAID, SELFPAY ==
--- NOTE | 2020-06-27 14:30 | XR_ITS ---
WS: [id number] KUB, AP view, 06/27/2020 Clinical Data: FLANK PAIN Comparison: KUB, 05/14/2020. Findings: No abnormal intraabdominal masses or calcifications are seen. There is no dilatated small bowel or ev idence of obstruction. There is a levoscoliosis. There are 3 pins in the left hip. There is a large amount of fecal material obscuring detail over both kidneys. There are right upper quadrant clips and a single clip in the le ft upper quadrant from surgery. XR/XR KUB [id number] Impression: 1. Large amount fecal material in the colon obscuring detail over both kidneys. 2. Negative for definite renal or ureteral calculi.
== END 2020-06-27 14:23 | disposition home or self-care (01) ==
LOC: RAD 14:24
PROVIDERS: PCP Internal Medicine; Visit Provider Nurse Practitioner Family
DX: R10.9 Unspecified abdominal pain (principal)
CPT/HCPCS: 74018; 81003

== ENCOUNTER → 2020-11-19 10:46 | Outpatient (BNVA) | payer MEDICARE, MEDICAID, SELFPAY | PROVIDERS: PCP Internal Medicine; Visit Provider Nurse Practitioner Family | DX: N30.80 Other cystitis without hematuria (principal); R30.0 Dysuria | CPT/HCPCS: 81003; 87086 ==

== ENCOUNTER → 2021-01-09 08:47 | Outpatient (BNVA) | payer MEDICARE, MEDICAID, SELFPAY | PROVIDERS: PCP Internal Medicine; Visit Provider Urology | DX: N30.80 Other cystitis without hematuria (principal); N20.9 Urinary calculus, unspecified | CPT/HCPCS: 81003; 87086 ==

== ENCOUNTER → 2021-02-11 08:13 | Outpatient (BNVA) | payer MEDICARE, MEDICAID, SELFPAY | PROVIDERS: PCP Internal Medicine; Visit Provider Nurse Practitioner Family | DX: N30.80 Other cystitis without hematuria (principal) | CPT/HCPCS: 81003 ==

== ENCOUNTER → 2021-03-25 09:12 | Outpatient (BNVA) | payer MEDICARE, MEDICAID, SELFPAY | PROVIDERS: PCP Internal Medicine; Visit Provider Urology | DX: N20.9 Urinary calculus, unspecified (principal) | CPT/HCPCS: 81003; 87077; 87086; 87184 ==

== ENCOUNTER 2021-07-22 16:53 | Emergency (ER) | payer MEDICARE, MEDICAID, SELFPAY ==
[2021-07-22 17:06] VITALS: BP 155/81; PULSE 79; RESP 20; TEMP 36.3; O2SAT 98; BMI 36.6
--- NOTE | 2021-07-22 17:13 | XRR_ITS ---
PROCEDURE INFORMATION: Exam: XR Right Wrist Exam date and time: 07/22/2021 5:13 PM Age: 81 years old Clinical indication: Pain; Wrist; Right; Additional info: Fall TECHNIQUE: Imaging protocol: XR Right wrist. Views: 3 or more views. COMPARISON: No relevant prior studies available. FINDINGS: Bones/joints: Moderate radiocarpal joint osteoarthritis. Soft tissues: Normal. XR/XR wrist RT w scaphoid [id number] IMPRESSION: Negative for fracture or dislocation
--- NOTE | 2021-07-22 17:14 | CTR_ITS ---
PROCEDURE INFORMATION: Exam: CT Cervical Spine Without Contrast Exam date and time: 07/22/2021 5:14 PM Age: 81 years old Clinical indication: Injury or trauma; Fall; Blunt trauma TECHNIQUE: Imaging protocol: Computed tomography images of the cervical spine without contrast. Radiation optimization: All CT scans at this facility use at least one of these dose optimization techniques: automated exposure control; mA and/or kV adjustment per patient size (includes targeted exams where dose is matched to clinical indication); or iterative reconstruction. COMPARISON: CR Cervical Spine Comp w [id number] 05/01/2015 11:12 AM RADIATION DOSE METRICS: Total DLP (mGy-cm): 662.75 FINDINGS: Vertebrae: No acute fracture. Normal alignment. C2-C3: No significant disc protrusion. No severe spinal canal stenosis. No significant neural foraminal narrowing. C3-C4: No significant disc protrusion. No severe spinal canal stenosis. No significant neural foraminal narrowing. C4-C5: No significant disc protrusion. No severe spinal canal stenosis. No significant neural foraminal narrowing. C5-C6: No significant disc protrusion. No severe spinal canal stenosis. No significant neural foraminal narrowing. C6-C7: No significant disc protrusion. No severe spinal canal stenosis. No significant neural foraminal narrowing. C7-T1: No significant disc protrusion. No severe spinal canal stenosis. No significant neural foraminal narrowing. Soft tissues: Unremarkable. Lungs: Lung apices are normal. CT/CT cervical spin wo con* [id number] IMPRESSION: No acute findings.
--- NOTE | 2021-07-22 17:14 | ECG_ITS ---
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 Measurements Intervals [place] Rate: 75 P: -8 MI: 126 QRS: 40 QRSD: 108 T: 9 QT: 410 QTc: 460 Interpretive Statements SINUS RHYTHM Compared to ECG 03/05/2019 01:08:59 No significant changes Electronically Signed On 07-23-2021 5:35:52 SAND ANALYST by Aretha Owens M.D. [email or web address]
--- NOTE | 2021-07-22 17:14 | CTR_ITS ---
PROCEDURE INFORMATION: Exam: CT Head Without Contrast Exam date and time: 07/22/2021 5:14 PM Age: 81 years old Clinical indication: Injury or trauma; Fall; Blunt trauma (contusions or hematomas); Prior surgery TECHNIQUE: Imaging protocol: Computed tomography of the head without contrast. Radiation optimization: All CT scans at this facility use at least one of these dose optimization techniques: automated exposure control; mA and/or kV adjustment per patient size (includes targeted exams where dose is matched to clinical indication); or iterative reconstruction. COMPARISON: CT head wo con* [id number] 09/29/2018 3:21 AM RADIATION DOSE METRICS: Total DLP (mGy-cm): 968.64 FINDINGS: Brain: Moderate diffuse white matter disease likely reflecting chronic microvascular ischemic changes. Cerebral ventricles: No ventriculomegaly. Paranasal sinuses: Paranasal sinus opacifications. Mastoid air cells: Visualized mastoid air cells are well aerated. Bones/joints: Unremarkable. No acute fracture. Soft tissues: Unremarkable. CT/CT head wo con* [id number] IMPRESSION: 1. Negative for intracranial hemorrhage or mass effect 2. Moderate diffuse white matter disease likely reflecting chronic microvascular ischemic changes. 3. Paranasal sinus opacifications.
--- NOTE | 2021-07-22 17:16 | ED_ITS ---
HPI - Fall General: Chief Complaint: Fall Stated Complaint: FALLS Time Seen by Provider: 07/22/21 17:10 History of Present Illness: 81-year-old female presents from detention due to recurrent falls. Describes headache and right wrist pain. Denies any focal numbness or tingling. Denies vertigo. Denies any chest pain shortness of breath or palpitations. States she has had numerous falls over the last several weeks. Denies blood thinners. Denies any other focal pain except as above. Review of Systems Narrative: - CONSTITUTIONAL: Denies weight loss, fever and chills. - HEENT: Denies changes in vision and hearing. - RESPIRATORY: Denies SOB and cough. - CV: Denies palpitations and CP. - GI: Denies abdominal pain, nausea, vomiting and diarrhea. - : Denies dysuria and urinary frequency. - MSK: As above - SKIN: Denies rash and pruritus. - NEUROLOGICAL: As above - PSYCHIATRIC: Denies suicidal ideation [facility] PFSH: Medical History (Updated 07/22/21 @ 21:53 by Kaiden Yarbrough MD) CAD in [place] artery Chronic back pain Chronic cystitis Cystitis cystica GERD (gastroesophageal reflux disease) History of CVA (cerebrovascular accident) History of diabetes mellitus Osteoarthritis Peripheral artery disease Polyneuropathy Post herpetic neuralgia Retained ureteral stent Urolithiasis Surgical History H/O bladder repair surgery H/O: hysterectomy Hip fracture History of cataract surgery History of cholecystectomy S/P tonsillectomy Family History Other Kidney malignancy Social History Alcohol intake: never Adopted: No Caregiver/support person: No Lives independently: No Housing: [facility] Marital status: Current occupational status: retired History of recent travel: No Current gender identity: Female Physical Exam Narrative: EXAM NARRATIVE: - GENERAL: Alert and oriented x 3. No acute distress. Well-nourished. - EYES: EOMI. Anicteric. - HENT: Atraumatic, no C-spine tenderness. Moist mucous membranes. No scleral icterus. No cervical lymphadenopathy. - LUNGS: Clear to auscultation bilaterally. No accessory muscle use. Equal lung sounds bilaterally. No respiratory distress. - CARDIOVASCULAR: Regular rate and rhythm. No murmur. No JVD. - ABDOMEN: Soft, non-tender and non-distended. Negative CVA tenderness bilaterally, no rebound or guarding, negative Ahn sign. No palpable masses. - EXTREMITIES: No edema. Mild tenderness to right wrist. No snuffbox tenderness. Extremity was neurovascularly intact. - SKIN: No rashes or lesions. Warm. - NEUROLOGIC: No meningismus or focal neurological deficits. CN II-XII grossly intact. - PSYCHIATRIC: Cooperative. Appropriate mood and affect. Course Vital Signs: Vital signs: Vital Signs Temperature 97.3 F L 07/22/21 17:06 Pulse Rate 75 07/22/21 19:43 Respiratory Rate 16 07/22/21 21:24 Blood Pressure 165/71 07/22/21 21:24 Pulse Oximetry 96 07/22/21 21:24 MDM - Fall Medical Decision Making 81-year-old presents due to recurrent falls. Does state she hit her head. CT scan of the head and C-spine does not reveal any cranial hemorrhage fracture dislocation peer also complains of wrist pain but again x-rays do not reveal any fracture dislocation. There is no snuffbox tenderness. Remainder of lab work unremarkable except for urinalysis concerning for UTI. Prescription for fosfomycin provided due to history of multiple antibiotic allergies. At this time I believe patient would be safe for discharge and outpatient follow-up. Return precautions provided. Plan was reviewed with the patient who expressed understanding. Questions answered. Patient will follow up with PCP. Patient discharged in stable condition. Lab Data : 07/22/21 18:14 07/22/21 18:14 Radiology Impressions Wrist X-Ray 07/22/21 17:13 IMPRESSION: Negative for fracture or dislocation Cervical Spine CT 07/22/21 17:14 IMPRESSION: No acute findings. Head CT 07/22/21 17:14 IMPRESSION: 1. Negative for intracranial hemorrhage or mass effect 2. Moderate diffuse white matter disease likely reflecting chronic microvascular ischemic changes. 3. Paranasal sinus opacifications. Laboratory Results WBC 6.3 10^3/uL (4.0-10.0) 07/22/21 18:14 RBC 3.90 10^6/uL (4.1-5.3) L 07/22/21 18:14 Hgb 12.8 g/dL (11.5-15.3) 07/22/21 18:14 Hct 41.2 % (37.0-47.0) 07/22/21 18:14 MCV 105.6 fl (81-99) H 07/22/21 18:14 MCH 32.8 pg (28.0-34.0) 07/22/21 18:14 MCHC 31.1 g/dL (30.0-36.0) 07/22/21 18:14 RDW 14.3 % (12.1-15.1) 07/22/21 18:14 Plt Count 76 10^3/cmm (130-400) L 07/22/21 18:14 MPV 11.5 fL (7.4-10.4) H 07/22/21 18:14 Neut % (Auto) 51.5 % 07/22/21 18:14 Lymph % (Auto) 24.4 % 07/22/21 18:14 [place] % (Auto) 9.0 % 07/22/21 18:14 Eos % (Auto) 14.4 % 07/22/21 18:14 Baso % (Auto) 0.5 % 07/22/21 18:14 Neut # (Auto) 3.25 10^3/uL (1.8-7.7) 07/22/21 18:14 Lymph # (Auto) 1.5 10^3/uL (0.8-4.8) 07/22/21 18:14 [place] # (Auto) 0.6 10^3/uL (0.2-0.9) 07/22/21 18:14 Eos # (Auto) 0.9 10^3/uL (0.0-0.8) H 07/22/21 18:14 Baso # (Auto) 0.0 10^3/uL (0.0-0.1) 07/22/21 18:14 Nucleated RBC % (auto) 0 % 07/22/21 18:14 Nucleated RBCs # 0.0 /100WBC 07/22/21 18:14 Sodium 139 mmol/L (136-145) 07/22/21 18:14 Potassium 4.0 mmol/L (3.5-5.1) 07/22/21 18:14 Chloride 104 mmol/L (98-107) 07/22/21 18:14 Carbon Dioxide 28 mmol/L (22-29) 07/22/21 18:14 Anion Gap 11.0 (5-19) 07/22/21 18:14 BUN 15 mg/dL (8-23) 07/22/21 18:14 Creatinine 0.9 mg/dL (0.5-0.9) 07/22/21 18:14 GFR Calculation Not Reportable 07/22/21 18:14 Glucose 101 mg/dL (65-115) 07/22/21 18:14 POC Glucose 107 mg/dL (70-110) 07/22/21 18:27 Calculated Osmolality 289 mOsm/kg (285-295) 07/22/21 18:14 Calcium 8.6 mg/dL (8.5-10.5) 07/22/21 18:14 Total Bilirubin 0.7 mg/dL (0.15-1.2) 07/22/21 18:14 AST 27 U/L (0-32) 07/22/21 18:14 ALT 16 U/L (0-33) 07/22/21 18:14 Alkaline Phosphatase 167 IU/L (35-105) H 07/22/21 18:14 Troponin T Baseline 23 ng/L (0-10) H 07/22/21 18:14 Troponin T 120 Minute 19.57 ng/L (0-10) H 07/22/21 20:53 Delta Troponin T -3.43 ABS# (0-10) L 07/22/21 20:53 NT-Pro-B Natriuret Pep 363 pg/mL (0-450) 07/22/21 18:14 Total Protein 6.7 g/dL (6.6-8.7) 07/22/21 18:14 Albumin 3.4 g/dL (3.5-5.2) L 07/22/21 18:14 Globulin 3.3 g/dL (1.3-4.6) 07/22/21 18:14 TSH 1.38 uIU/mL (0.27-4.20) 07/22/21 18:14 Free T4 1.22 ng/dL (0.82-1.77) 07/22/21 18:14 Urine Color Yellow (Yellow) 07/22/21 20:30 Urine Appearance Clear (CLEAR) 07/22/21 20:30 Urine pH 5 (5-7) 07/22/21 20:30 Ur Specific Mullen 1.015 (1.005-1.030) 07/22/21 20:30 Urine Protein Neg (Negative) 07/22/21 20:30 Urine Glucose (UA) Norm (Normal) 07/22/21 20:30 Urine Ketones Negative (Negative) 07/22/21 20:30 Urine Blood Neg (Negative) 07/22/21 20:30 Urine Nitrate Positive (Negative) H 07/22/21 20:30 Urine Bilirubin Neg (Negative) 07/22/21 20:30 Urine Urobilinogen Norm mg/dL (Negative) 07/22/21 20:30 Ur Leukocyte Esterase Trace (Negative) H 07/22/21 20:30 Urine RBC 0-4 /hpf (0-2) H 07/22/21 20:30 Urine WBC 25-40 /hpf (0-5) H 07/22/21 20:30 Ur Squamous Epith Cells 0-4 /hpf (0-5) H 07/22/21 20:30 Amorphous Sediment Not Reportable 07/22/21 20:30 Urine Bacteria 3+ /hpf (NONE) H 07/22/21 20:30 SARS-CoV-2 Ag (Rapid) Negative (Negative) 07/22/21 18:40 EKG Data EKG 1: Other EKG comments: Sinus rhythm, rate 75, no sign of acute ischemia or other acute abnormality. Discharge Plan Discharge Patient Disposition: Home Clinical Impression: Fall, Acute UTI Condition: Stable Prescriptions: New fosfomycin tromethamine 3 gram packet 3 g PO Q3D Qty: 2 0RF No Action alprazolam 0.25 mg tablet 0.25 mg PO BID 0RF Fleet Bisacodyl 10 mg/30 mL enema [address] DAILY PRN0RF magnesium hydroxide [Milk of Magnesia] 400 mg/5 mL suspension 15 ml PO BID PRN0RF sennosides [Evac-U-Gen (sennosides)] 8.6 mg tablet 17.2 mg PO BID 0RF fluticasone propionate 50 mcg/actuation spray,suspension 1 spray intranasal BID 0RF Rx Instructions: administer into each nostril omeprazole 20 mg capsule,delayed release(DR/EC) 20 mg PO DAILY 0RF ondansetron HCl [Zofran] 4 mg tablet 4 mg PO Q6H 0RF levothyroxine 25 mcg capsule 25 mcg PO DAILY 0RF polyethylene glycol 3350 [Miralax] 17 gram/dose powder 17 gm PO DAILY 0RF carvedilol 6.25 mg tablet 6.25 mg PO BID 0RF furosemide [Lasix] 20 mg tablet 40 mg PO DAILY 0RF hydrocodone-acetaminophen 5-325 mg tablet 1 tab PO Q6H PRN0RF allopurinol 100 mg tablet 100 mg PO DAILY 0RF acetaminophen 325 mg capsule 325 mg PO QID PRN0RF tobramycin 0.3 % drops 1 drp ophthalmic (eye) Q4H 0RF nitrofurantoin monohyd/m-cryst [Macrobid] 100 mg capsule 100 mg PO BID Qty: 60 2RF Rx Instructions: must administer with a meal/food gabapentin 600 mg Tablet 600 mg PO DAILY 0RF bisacodyl 10 mg Suppository [address] DAILY 0RF Neurontin 800 mg Tablet 800 mg PO DAILY 0RF Discharge Orders: Discharge ED (Routine); Ordered 07/22/21 Ordered By: Kaiden Yarbrough Referrals: Sudheer Wood MD [Primary Care Provider] - 1-3 days Patient Instructions: Urinary Tract Infection in Women (ED), Fall Prevention (ED), Opioid Safety Coding Level of Care Code ED 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
--- NOTE | 2021-07-22 18:29 | PC.NURSE ---
Pt BG 107
[2021-07-22 18:30] LABS: Glucose Point of Care 107 mg/dL (70-110)
[2021-07-22 18:31] LABS: Basophils % 0.5 %; Eosinophils # 0.9 10^3/uL (0.0-0.8); Eosinophils % 14.4 %; Hematocrit 41.2 % (37.0-47.0); Hemoglobin 12.8 g/dL (11.5-15.3); Lymphocytes # 1.5 10^3/uL (0.8-4.8); Lymphocytes % 24.4 %; Mean Corpuscular HGB Conc 31.1 g/dL (30.0-36.0); Mean Corpuscular Hemoglobin 32.8 pg (28.0-34.0); Mean Corpuscular Volume 105.6 fl (81-99); Mean Platelet Volume 11.5 fL (7.4-10.4); Monocytes # 0.6 10^3/uL (0.2-0.9); Neutrophils # 3.25 10^3/uL (1.8-7.7); Neutrophils % 51.5 %; Nucleated Red Blood Cells % 0 %; Platelet Count 76 10^3/cmm (130-400); Red Cell Distribution Width 14.3 % (12.1-15.1); White Blood Count 6.3 10^3/uL (4.0-10.0)
[2021-07-22 18:41] VITALS: BP 137/84; PULSE 74; RESP 18; O2SAT 98
[2021-07-22 18:58] LABS: Troponin(5th) Baseline 23 ng/L (0-10)
[2021-07-22] MEDS: acetaminophen 500 mg Tablet PO (18:58)
[2021-07-22 19:05] LABS: Alanine Aminotransferase 16 U/L (0-33); Albumin Level 3.4 g/dL (3.5-5.2); Alkaline Phosphatase 167 IU/L (35-105); Aspartate Amino Transferase 27 U/L (0-32); Blood Urea Nitrogen 15 mg/dL (8-23); Calcium 8.6 mg/dL (8.5-10.5); Carbon Dioxide 28 mmol/L (22-29); Chloride 104 mmol/L (98-107); Creatinine Clr Calc Pharmacy 51.3474; Globulin 3.3 g/dL (1.3-4.6); Glucose 101 mg/dL (65-115); NT Pro B Type Natriuretic Pept 363 pg/mL (0-450); Osmolality Calculated 289 mOsm/kg (285-295); Sodium 139 mmol/L (136-145); Thyroid Stimulating Hormone 1.38 uIU/mL (0.27-4.20); Total Bilirubin 0.7 mg/dL (0.15-1.2); Total Protein 6.7 g/dL (6.6-8.7)
[2021-07-22 19:18] LABS: SARS Covid-2 Antigen Negative (Negative)
[2021-07-22 19:43] VITALS: BP 160/90; PULSE 75; RESP 16; O2SAT 98
[2021-07-22 20:51] LABS: Add Urine Culture? Yes; Bacteria Urine 3+ /hpf; Bilirubin Urine Neg (Negative); Blood Urine Neg (Negative); Glucose Urine UA Norm (Normal); Ketones Urine Negative (Negative); Leukocyte Esterase Urine Trace (Negative); Nitrate Urine Positive (Negative); Protein Urine Neg (Negative); RBC Urine 0-4 /hpf (0-2); Specific Gravity, Urine 1.015 (1.005-1.030); Squamous Epithelial Cell Urine 0-4 /hpf (0-5); Urine Appearance Clear (CLEAR); Urine Color Yellow (Yellow); Urobilinogen Urine Norm (Negative); WBC Urine 25-40 /hpf (0-5); pH Urine 5 (5-7)
[2021-07-22 20:55] LABS: Free T4 Free Thyroxine 1.22 ng/dL (0.82-1.77)
[2021-07-22 21:24] VITALS: BP 165/71; RESP 16; O2SAT 96
[2021-07-22 21:38] LABS: Troponin 5 2HR 19.57 ng/L (0-10)
[2021-07-22 21:45] LABS: Troponin 5 2HR Delta -3.43 ABS# (0-10)
[2021-07-22 22:26] VITALS: BP 154/70; PULSE 78; RESP 16; O2SAT 94
== END 2021-07-22 22:48 | disposition home or self-care (01) ==
PROVIDERS: Emergency Provider Emergency Medicine; PCP Internal Medicine
DX: N39.0 Urinary tract infection, site not specified (principal); I25.10 Atherosclerotic heart disease of native coronary artery without angina pectoris; Z86.73 Personal history of transient ischemic attack (TIA), and cerebral infarction without residual deficits; E11.9 Type 2 diabetes mellitus without complications; W19.XXXA Unspecified fall, initial encounter; Z20.822 Contact with and (suspected) exposure to COVID-19
CPT/HCPCS: 36415; 36416; 70450; 72125; 73110; 80053; 81001; 82962; 83880; 84439; 84443; 84484; 85025; 87077; 87086; 87186; 87426; 93005; 99284

== ENCOUNTER → 2021-07-24 13:18 | Outpatient (BNVA) | payer MEDICARE, MEDICAID, SELFPAY | PROVIDERS: PCP Internal Medicine; Visit Provider Nurse Practitioner Family | DX: N30.80 Other cystitis without hematuria (principal) | CPT/HCPCS: 81003 ==

== ENCOUNTER → 2021-08-22 14:10 | Outpatient (BNVA) | payer MEDICARE, MEDICAID, SELFPAY | PROVIDERS: PCP Internal Medicine; Visit Provider Urology | DX: N20.9 Urinary calculus, unspecified (principal); N39.41 Urge incontinence; N30.80 Other cystitis without hematuria | CPT/HCPCS: 81003 ==

== ENCOUNTER 2021-09-23 17:31 | Inpatient (IN) | payer MEDICARE, MEDICAID, SELFPAY ==
[2021-09-23] VITALS (10 sets, daily range): BP systolic 184–209; BP diastolic 62–123; PULSE 69–92; RESP 18–24; TEMP 36.6–36.7; O2SAT 92–98; BMI 36.6
--- NOTE | 2021-09-23 17:39 | XRR_ITS ---
PROCEDURE INFORMATION: Exam: XR Chest Exam date and time: 09/23/2021 5:50 PM Age: 81 years old Clinical indication: Cough; Additional info: Dyspnea/cough TECHNIQUE: Imaging protocol: XR of the chest. Views: 1 view. COMPARISON: CR Chest 1 [place] [id number] 03/05/2019 12:29 AM FINDINGS: Airway: Rightward tracheal deviation which is exaggerated by chest rotation. Lungs: Left lung base obscured. Right lung clear. Pleural spaces: Large left-sided pleural effusion. Negative for pneumothorax. Mediastinal shift to the right of midline. Heart/Mediastinum: Cardiomegaly. Bones/joints: Unremarkable. XR/XR chest 1V portable [id number] IMPRESSION: Development of large left pleural effusion.
[2021-09-23 18:34] LABS: Basophils % 0.6 %; Eosinophils # 0.8 10^3/uL (0.0-0.8); Hematocrit 40.5 % (37.0-47.0); Hemoglobin 12.5 g/dL (11.5-15.3); Lymphocytes # 1.2 10^3/uL (0.8-4.8); Lymphocytes % 22.4 %; Mean Corpuscular HGB Conc 30.9 g/dL (30.0-36.0); Mean Corpuscular Volume 103.6 fl (81-99); Mean Platelet Volume 11.3 fL (7.4-10.4); Monocytes # 0.5 10^3/uL (0.2-0.9); Monocytes % 10.4 %; Neutrophils # 2.62 10^3/uL (1.8-7.7); Neutrophils % 50.4 %; Nucleated Red Blood Cells % 0 %; Platelet Count 71 10^3/cmm (130-400); Red Blood Count 3.91 10^6/uL (4.1-5.3); Red Cell Distribution Width 14.9 % (12.1-15.1); White Blood Count 5.2 10^3/uL (4.0-10.0)
--- NOTE | 2021-09-23 18:53 | W.ED.NAVMDI ---
HPI - Nausea/Vomiting/Diarrhea General: Chief complaint: Nausea/Vomiting/Diarrhea Stated complaint: POSSIBLE ASPIRATION Time Seen by Provider: 09/23/21 17:38 Source: patient and EMS Mode of arrival: EMS Limitations: altered mental status History of Present Illness: 81-year-old female who does have a history of dementia she is here from local [facility] living she was eating lunch today at 11 had a slight choking episode and vomited a little and they were concerned she may have aspirated he states since then she has had a cough along with wheezing and some respiratory distress. Patient does have dementia full history is difficult from her she does have audible rales here. Associated nausea: Yes Associated symtoms: Reports nausea; Denies chest pain, dysuria or headache(s) Review of Systems Const: Denies: fever(s), chills, body aches or change in appetite Eyes: Denies: blurry vision or eye discomfort ENMT: Denies: throat pain or dental pain Card: Denies: chest pain Resp: Reports: non-productive cough GI: Reports: nausea and vomiting : Denies: dysuria Musc: Denies: neck pain or back pain Skin/Breast: Denies: rash Neuro: Denies: headache(s) Psych: Denies: depression Edu/Lymph: Denies: easy bruising All/Imm: Denies: urticaria PFSH ED PFSH: Medical History CAD in [place] artery Chronic back pain Chronic cystitis Cystitis cystica GERD (gastroesophageal reflux disease) History of CVA (cerebrovascular accident) History of diabetes mellitus Osteoarthritis Peripheral artery disease Polyneuropathy Post herpetic neuralgia Retained ureteral stent Urolithiasis Surgical History H/O bladder repair surgery H/O: hysterectomy Hip fracture History of cataract surgery History of cholecystectomy S/P tonsillectomy Family History Other Kidney malignancy Social History Smoking and tobacco status: never smoked Alcohol intake: never Adopted: No Caregiver/support person: No Lives independently: No Housing: [facility] Marital status: Current occupational status: retired History of recent travel: No Current gender identity: Female Physical Exam Const: COMMON NORMALS: negative for patient oriented x3 GENERAL APPEARANCE: in distress and ill appearing HENMT: COMMON NORMALS: normocephalic and atraumatic HEAD & SCALP: normocephalic and atraumatic Eye: COMMON NORMALS: Equal, round and reactive pupils present and EOMs intact bilaterally PUPIL: Yes Equal, round and reactive pupils present Neck/C-Spine: COMMON NORMALS: full ROM and supple Chest: COMMONS NORMALS: normal inspection of the chest and normal palpation of entire chest wall Resp: COMMON NORMALS: No retractions EFFORT & INSPECTION: Yes tachypneic AUSCULTATION: rales on the left and diminished lung sounds on the left Cardio: COMMON NORMALS: regular rate, regular rhythm and No murmurs present (Cardio) RATE: regular rate RHYTHM: regular rhythm GI: COMMON NORMALS: Normal to inspection, nondistended, normoactive bowel sounds present, Soft to palpation, non-tender and no masses PALPATION: Yes Soft to palpation Extremity: COMMON NORMALS: normal to inspection and full ROM Neuro: COMMON NORMALS: moves all extremities and no focal motor deficits; negative for patient oriented x3 Psych: COMMON NORMALS: mental status grossly normal, Normal thought process present and cooperative THOUGHT PROCESS: Normal thought process present Skin: COMMON NORMALS: no rashes or lesions noted and no wounds GENERAL SKIN EXAM: no rashes or lesions noted Course Vital Signs: Vital signs: Vital Signs Temperature 98.1 F 09/23/21 18:59 Pulse Rate 73 09/23/21 18:59 Respiratory Rate 18 09/23/21 18:59 Blood Pressure 209/83 09/23/21 18:59 Pulse Oximetry 95 09/23/21 18:59 MDM - Nausea/Vomiting/Diarrhea Medical Decision Making 81-year-old female who presents here with possible aspiration pneumonia x-ray did show a pleural effusion as well she has had some respiratory distress here spoke to hospitalist will admit patient started on IV antibiotics here. Lab Data : 09/23/21 18:13 09/23/21 18:13 Radiology Impressions Chest X-Ray 09/23/21 17:39 IMPRESSION: Development of large left pleural effusion. Laboratory Results WBC 5.2 10^3/uL (4.0-10.0) 09/23/21 18:13 RBC 3.91 10^6/uL (4.1-5.3) L 09/23/21 18:13 Hgb 12.5 g/dL (11.5-15.3) 09/23/21 18:13 Hct 40.5 % (37.0-47.0) 09/23/21 18:13 MCV 103.6 fl (81-99) H 09/23/21 18:13 MCH 32.0 pg (28.0-34.0) 09/23/21 18:13 MCHC 30.9 g/dL (30.0-36.0) 09/23/21 18:13 RDW 14.9 % (12.1-15.1) 09/23/21 18:13 Plt Count 71 10^3/cmm (130-400) L 09/23/21 18:13 MPV 11.3 fL (7.4-10.4) H 09/23/21 18:13 Neut % (Auto) 50.4 % 09/23/21 18:13 Lymph % (Auto) 22.4 % 09/23/21 18:13 Bath % (Auto) 10.4 % 09/23/21 18:13 Eos % (Auto) 16.0 % 09/23/21 18:13 Baso % (Auto) 0.6 % 09/23/21 18:13 Neut # (Auto) 2.62 10^3/uL (1.8-7.7) 09/23/21 18:13 Lymph # (Auto) 1.2 10^3/uL (0.8-4.8) 09/23/21 18:13 Bath # (Auto) 0.5 10^3/uL (0.2-0.9) 09/23/21 18:13 Eos # (Auto) 0.8 10^3/uL (0.0-0.8) 09/23/21 18:13 Baso # (Auto) 0.0 10^3/uL (0.0-0.1) 09/23/21 18:13 Nucleated RBC % (auto) 0 % 09/23/21 18:13 Nucleated RBCs # 0.0 /100WBC 09/23/21 18:13 Sodium 139 mmol/L (136-145) 09/23/21 18:13 Potassium 4.2 mmol/L (3.5-5.1) 09/23/21 18:13 Chloride 105 mmol/L (98-107) 09/23/21 18:13 Carbon Dioxide 26 mmol/L (22-29) 09/23/21 18:13 Anion Gap 12.2 (5-19) 09/23/21 18:13 BUN 10 mg/dL (8-23) 09/23/21 18:13 Creatinine 0.6 mg/dL (0.5-0.9) 09/23/21 18:13 GFR Calculation Not Reportable 09/23/21 18:13 Glucose 96 mg/dL (65-115) 09/23/21 18:13 Calculated Osmolality 287 mOsm/kg (285-295) 09/23/21 18:13 Calcium 7.8 mg/dL (8.5-10.5) L 09/23/21 18:13 Total Bilirubin 0.8 mg/dL (0.15-1.2) 09/23/21 18:13 AST 26 U/L (0-32) 09/23/21 18:13 ALT 13 U/L (0-33) 09/23/21 18:13 Alkaline Phosphatase 177 IU/L (35-105) H 09/23/21 18:13 NT-Pro-B Natriuret Pep 277 pg/mL (0-450) 09/23/21 18:13 Total Protein 6.7 g/dL (6.6-8.7) 09/23/21 18:13 Albumin 2.9 g/dL (3.5-5.2) L 09/23/21 18:13 Globulin 3.8 g/dL (1.3-4.6) 09/23/21 18:13 EKG Data EKG 1: I personally reviewed and interpreted this EKG as follows: EKG interpretation date: 09/23/21 EKG interpretation time: 19:31 Interpretation: nsr hr [address] or t wave abnormalities qrs 98 qtc 406 Discharge Plan Discharge Patient Disposition: Admitted As Inpatient Clinical Impression: Pneumonia, Pleural effusion, Acute respiratory failure with hypoxia Condition: Stable Coding Level of Care Code ED Manager Global for Chg Fwd Exam Comprehensive
[2021-09-23 18:59] LABS: Alanine Aminotransferase 13 U/L (0-33); Albumin Level 2.9 g/dL (3.5-5.2); Alkaline Phosphatase 177 IU/L (35-105); Blood Urea Nitrogen 10 mg/dL (8-23); Calcium 7.8 mg/dL (8.5-10.5); Carbon Dioxide 26 mmol/L (22-29); Chloride 105 mmol/L (98-107); Creatinine Clr Calc Pharmacy 57.7658; Globulin 3.8 g/dL (1.3-4.6); Glucose 96 mg/dL (65-115); Osmolality Calculated 287 mOsm/kg (285-295); Sodium 139 mmol/L (136-145); Total Bilirubin 0.8 mg/dL (0.15-1.2); Total Protein 6.7 g/dL (6.6-8.7)
[2021-09-23 19:02] LABS: Anion Gap 12.2 (5-19); Aspartate Amino Transferase 26 U/L (0-32); Potassium 4.2 mmol/L (3.5-5.1)
--- NOTE | 2021-09-23 19:06 | ECG_ITS ---
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 Measurements Intervals [place] Rate: 72 P: 28 AK: 156 QRS: 37 QRSD: 98 T: 17 QT: 381 QTc: 419 Interpretive Statements SINUS RHYTHM Compared to ECG 07/22/2021 17:18:48 No significant changes Electronically Signed On 09-23-2021 20:46:04 CDT by Raymon Lazaro M.D. [id number]
--- NOTE | 2021-09-23 19:08 | PC.NURSE ---
190 assumed pt care from Sherley HERRERA
[2021-09-23 19:48] LABS: NT Pro B Type Natriuretic Pept 277 pg/mL (0-450)
[2021-09-23] MEDS: piperacillin-tazobactam 3.375 GM in sodium chloride 0.9% (plus) 50 ML IV (19:50)
[2021-09-23] MEDS: vancomycin 1,000 MG in sodium chloride 0.9% 250 ML 250 MG IV (19:51)
[2021-09-23] MEDS: hyDRALAzine 20 mg/mL INJ 1 mL 10 MG IVP (20:04)
--- NOTE | 2021-09-23 20:04 | PM.HP ---
Providers/Chief Complaint Primary Care Provider: Sudheer Wood MD Chief Complaint: POSSIBLE ASPIRATION History of Present Illness Daksha Machuca is a 81 year old female who carries history of dementia, recurrent UTI, follows-up with Dr. Carney, on chronic suppressive therapy, resident of [facility], presented to the hospital for an episode of choking on food. When I interviewed the patient patient is stating that around lunchtime her left arm was numb which improved spontaneously. She is not sure why she is in the hospital. She Kept apologizing for being forgetful. Patient is complaining of feeling extremely cold, she is endorsing subjective fever, [facility] was called, nurse reported that patient mostly stays in her wheelchair, today her O2 saturation dropped when she choked on food, that prompted her visit to the ER. Patient has been getting short of breath at rest she is endorsing orthopnea, PND. Denying cough, fever, chest pain, abdominal pain or dysuria. Diagnosis in the ER revealed worsening of left-sided pleural effusion, patient is saturating well on room air, she is hypertensive, she received antibiotics for possible pneumonia, she was given hydralazine for hypertensive urgency Requested left-sided thoracentesis, I called her brother, I did explain current diagnosis, treatment plan, goals of care discussed, she is full code Review of records revealed that patient does have history of dysphagia, 2009 barium swallow revealed large size hiatal hernia tertiary contraction within distal esophagus consistent with achalasia, numerous tertiary contractions also seen, Review of Systems Const: Reports: chills, body aches and fatigue Eyes: Denies: change in vision ENMT: Denies: throat pain Card: Reports: edema, swelling of feet/ankles and orthopnea; Denies: chest pain Resp: Reports: dyspnea GI: Denies: abdominal pain : Denies: flank pain Musc: Reports: extremity swelling; Denies: neck pain Skin/Breast: Reports: lesions Neuro: Denies: headache(s) Psych: Reports: memory loss Endo: Denies: polyuria Edu/Lymph: Denies: easy bruising All/Imm: Denies: urticaria Medications/Allergies Home Medications Medication Instructions Recorded Confirmed Last Taken Type bisacodyl 10 mg rectal suppository 10 mg UT DAILY 07/14/19 08/22/21 Unknown History gabapentin 600 mg tablet 600 mg PO DAILY 07/14/19 08/22/21 Unknown History gabapentin 800 mg tablet 800 mg PO DAILY 07/14/19 08/22/21 Unknown History (Neurontin) carvedilol 6.25 mg tablet 6.25 mg PO BID 08/30/19 08/22/21 Unknown History levothyroxine 25 mcg capsule 25 mcg PO DAILY 08/30/19 08/22/21 Unknown History polyethylene glycol 3350 17 17 gm PO DAILY 08/30/19 08/22/21 Unknown History gram/dose oral powder (Miralax) alprazolam 0.25 mg tablet 0.25 mg PO BID 05/14/20 08/22/21 Unknown History hydrocodone 5 mg-acetaminophen 325 1 tab PO Q6H PRN 11/19/20 08/22/21 Unknown History mg tablet bisacodyl 10 mg/30 mL enema (Fleet 5 mg UT DAILY PRN 01/09/21 08/22/21 Unknown History Bisacodyl) fluticasone propionate 50 1 spray INTRANASAL BID 01/09/21 08/22/21 Unknown History mcg/actuation nasal spray,suspension magnesium hydroxide 400 mg/5 mL 15 ml PO BID PRN 01/09/21 08/22/21 Unknown History oral suspension (Milk of Magnesia) omeprazole 20 mg capsule,delayed 20 mg PO DAILY 01/09/21 08/22/21 Unknown History release ondansetron HCl 4 mg tablet 4 mg PO Q6H 01/09/21 07/24/21 Unknown History (Zofran) sennosides 8.6 mg tablet 17.2 mg PO BID tab 01/09/21 08/22/21 Unknown History (Evac-U-Gen (sennosides)) acetaminophen 325 mg capsule 325 mg PO QID PRN 02/11/21 07/24/21 Unknown History allopurinol 100 mg tablet 100 mg PO DAILY 02/11/21 08/22/21 Unknown History tobramycin 0.3 % eye drops 1 drp OPHTHALMIC (EYE) Q4H 02/11/21 08/22/21 Unknown History fosfomycin tromethamine 3 gram 3 g PO Q3D #2 ea 07/22/21 08/22/21 Unknown Rx oral packet nitrofurantoin 100 mg PO BID #60 cap 07/25/21 08/22/21 Unknown Rx monohydrate/macrocrystals 100 mg capsule (Macrobid) doxycycline hyclate 100 mg capsule 100 mg PO BID 08/22/21 08/22/21 Unknown History fexofenadine-pseudoephedrine ER 1 tab PO QAM 08/22/21 08/22/21 Unknown History 180 mg-240 mg tablet,ext.release 24 hr (Nichole-D 24 Hour) furosemide 20 mg tablet (Lasix) 20 mg PO DAILY tab 08/22/21 08/22/21 Unknown History oxycodone myristate 18 mg capsule 18 mg PO BID 08/22/21 08/22/21 Unknown History sprinkle extended release 12hr(DON'T CRUSH) (Xtampza ER) sertraline 25 mg tablet 25 mg PO DAILY 08/22/21 08/22/21 Unknown History solifenacin 5 mg tablet (Vesicare) 5 mg PO DAILY #30 tab 08/22/21 08/22/21 Unknown Rx Allergies Allergy/AdvReac Type Severity Reaction Status Date / Time amoxicillin Allergy Unknown Verified 09/23/21 17:52 cefepime Allergy Unknown Verified 09/23/21 17:52 ciprofloxacin [From Cipro] Allergy Unknown Verified 09/23/21 17:52 codeine Allergy Unknown Verified 09/23/21 17:52 Influenza Virus Vaccines Allergy Unknown Verified 09/23/21 17:52 iodine Allergy Unknown Verified 09/23/21 17:52 Quinolones Allergy Unknown Verified 09/23/21 17:52 Sulfa (Sulfonamide Allergy Unknown Verified 09/23/21 17:52 Antibiotics) Sulfonylureas Allergy Unknown Verified 09/23/21 17:52 PFSH Acute PFSH: Medical History CAD in [place] artery Chronic back pain Chronic cystitis Cystitis cystica GERD (gastroesophageal reflux disease) History of CVA (cerebrovascular accident) History of diabetes mellitus Osteoarthritis Peripheral artery disease Polyneuropathy Post herpetic neuralgia Retained ureteral stent Urolithiasis Surgical History H/O bladder repair surgery H/O: hysterectomy Hip fracture History of cataract surgery History of cholecystectomy S/P tonsillectomy Family History Other Kidney malignancy Social History Smoking and tobacco status: never smoked Alcohol intake: never Adopted: No Caregiver/support person: No Lives independently: No [facility] Marital status: Current occupational status: retired History of recent travel: No Current gender identity: Female Vitals/I&O/Wt Last Vital Signs Temp 98.1 F 09/23/21 18:59 Pulse 73 09/23/21 18:59 Resp 18 09/23/21 18:59 BP 209/83 09/23/21 18:59 Pulse Ox 95 09/23/21 18:59 Weight last 48 hrs Weight 90.718 kg Physical Exam Narrative: Pleasant cooperative female She is complaining of feeling extremely cold O2 saturation normal on room air Hypertensive No signs of active stroke She is able to move her upper and lower extremities No active numbness She is awake and alert oriented to time and person but not place He was able to tell me name of her brother and asked me to call him S1, S2 Abdomen soft Lower extremity has venous stasis dermatitis Swelling Erythematous rash of bilateral lower extremity left greater than right Diminished bilateral breath sounds, Rales at the base of the lungs Data : 09/23/21 18:13 09/23/21 18:13 A&P Assessment and plan (1) Pleural effusion: Status: Acute (2) Hypoxia: Status: Acute (3) Aspiration pneumonitis: Status: Acute Plan Aspiration pneumonitis Patient is afebrile She has received antibiotics in the ER She is not showing signs of infection, no leukocytosis I would avoid continuing antibiotics at this point She does have history of large hiatal hernia with history of dysphagia Will request speech eval in the morning For now I will continue pur?ed diet I do not see active signs of stroke She is saturating well on room air He is at risk of recurrent aspiration due to large hiatal hernia and esophageal dysmotility, there was also concern for achalasia in the past Hypoxia related to pleural effusion: resolved At the detention O2 saturation dropped Right now she is saturating well on room air Not requiring oxygen This could be related to pleural effusion I will request BNP Thoracentesis in the morning CHF exacerbation, preserved ejection fraction heart failure exacerbation 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%, grade 1 diastolic dysfunction I will keep her on IV Lasix Hypertensive urgency Add lisinopril Received hydralazine in the ER Continue Coreg, I am anticipating she will be able to go back to detention after her thoracentesis Her brother has been updated She is full code DVT prophylaxis SCDs, avoid anticoagulation in anticipation of thoracentesis in the morning Speech eval in the morning I am not continue antibiotics at this point, please reevaluate Attestations Medical Necessity Statement*: Anticipating less than 2 midnights, she will need thoracentesis for large pleural effusion on the left side, Will need speech eval Time Spent in Patient Care: 40mins Coding Level of Care Code 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
--- NOTE | 2021-09-23 22:27 | USCV_ITS ---
Daksha Machuca Age: 81 Gender: F : 1940 Exam Date: 09/23/2021 23:00 Ordering Phys: Odalys Aguilera MD Technologist: CKShilpi Exam Location: [facility] [place] Indication: Congestive heart failure BP: 208 / 62 HR: 89 Rhythm: Sinus Technical Quality: Suboptimal MEASUREMENTS (Male / Female) Normal Values 2D ECHO LV Ejection Fraction MOD 2C 84.7 % LV Ejection Fraction 2C AL 85.1 % LA Width 3.4 cm LA Height 5.9 cm DOPPLER AV Peak Velocity 140.3 cm/s LVOT Peak Velocity 108.3 cm/s MV Peak Velocity 138.0 cm/s MV Area PHT 2.6 cm squared Mitral E to A Ratio 0.6 MV E' Velocity 41.5 cm/s Mitral E to MV E' Ratio 12.8 Mitral E to LV E' Lateral Ratio 13.2 Mitral E to LV E' Septal Ratio 12.4 FINDINGS Left Ventricle Normal left ventricular cavity size. Normal left ventricular systolic function. Left ventricular ejection fraction is estimated at 60-65 %. No diagnostic regional wall motion abnormality. Grade I diastolic dysfunction (abnormal relaxation filling pattern), normal to mildly elevated filling pressures. Right Ventricle Right ventricle not well visualized. Probably normal right ventricle size and systolic function. Right Atrium Normal right atrial size. Left Atrium Mildly increased left atrial size. Mitral Valve Mildly thickened mitral valve. No mitral valve stenosis. No mitral valve regurgitation. Aortic Valve Aortic valve not well visualized. No aortic valve stenosis. No aortic valve regurgitation. Tricuspid Valve Tricuspid valve not well visualized. Pulmonic Valve Pulmonic valve not well visualized. Pericardium No pericardial effusion. Aorta Aorta not well visualized. CONCLUSIONS 1. This is a technically difficult study. 2. Normal left ventricular cavity size and systolic function. Left ventricular ejection fraction is estimated at 60-65 %. No diagnostic regional wall motion abnormality. Grade I diastolic dysfunction (abnormal relaxation filling pattern), normal to mildly elevated filling pressures. 3. When compared to previous study report dated 04/05/2017, there may not have been any significant change. Aretha Owens MD (Electronically Signed) Final Date: 24 Sep 2021 18:08 S
[2021-09-23] MEDS: FUROsemide 10 mg/mL SDV 10mL 60 MG IVP (22:54)
[2021-09-23] MEDS: lisinopril 10 mg Tablet PO (22:54)
[2021-09-23] MEDS: labetalol 5 mg/mL SDV 20mL 10 MG IVP (22:55)
[2021-09-23 23:37] LABS: D Dimer 1.99 ug/mIFEU (0-0.59)
[2021-09-23 23:49] LABS: NT Pro B Type Natriuretic Pept 335 pg/mL (0-450); Procalcitonin 0.06 ng/mL (0-0.5); Thyroid Stimulating Hormone 2.08 uIU/mL (0.27-4.20)
[2021-09-24] VITALS (8 sets, daily range): BP systolic 135–167; BP diastolic 58–83; PULSE 74–89; RESP 14–20; TEMP 36.7–37.1; O2SAT 94–99
[2021-09-24] MEDS: HYDROcodone-acetaminophen 5-325 mg Tablet 1 TAB PO ×3 (00:04→23:40)
[2021-09-24 03:15] LABS: Basophils % 0.5 %; Eosinophils # 0.4 10^3/uL (0.0-0.8); Eosinophils % 5.3 %; Hematocrit 37.2 % (37.0-47.0); Hemoglobin 11.7 g/dL (11.5-15.3); Lymphocytes # 0.9 10^3/uL (0.8-4.8); Lymphocytes % 13.7 %; Mean Corpuscular HGB Conc 31.5 g/dL (30.0-36.0); Mean Corpuscular Hemoglobin 32.4 pg (28.0-34.0); Mean Platelet Volume 11.1 fL (7.4-10.4); Monocytes # 0.6 10^3/uL (0.2-0.9); Monocytes % 9.3 %; Neutrophils # 4.66 10^3/uL (1.8-7.7); Neutrophils % 70.9 %; Nucleated Red Blood Cells % 0 %; Platelet Count 86 10^3/cmm (130-400); Red Blood Count 3.61 10^6/uL (4.1-5.3); Red Cell Distribution Width 14.7 % (12.1-15.1); White Blood Count 6.6 10^3/uL (4.0-10.0)
[2021-09-24 03:22] LABS: INR 1.16 (0.8-1.2)
[2021-09-24 03:34] LABS: Anion Gap 13.4 (5-19); Blood Urea Nitrogen 10 mg/dL (8-23); C Reactive Protein 11.6 mg/L (0.0-4.9); Calcium 8.2 mg/dL (8.5-10.5); Carbon Dioxide 26 mmol/L (22-29); Chloride 105 mmol/L (98-107); Glucose 113 mg/dL (65-115); Lactate Dehydrogenase 280 U/L (135-214); Magnesium 1.5 mg/dL (1.7-2.3); Osmolality Calculated 292 mOsm/kg (285-295); Potassium 3.4 mmol/L (3.5-5.1); Sodium 141 mmol/L (136-145)
--- NOTE | 2021-09-24 09:39 | P.PN_ITS ---
Subjective Subjective: Daksha was sleeping comfortably and actually had to shake her shoulder to get her to wake up. But when she wakes up she is wide-awake and alert. She remembers having her choking episode yesterday. She complains of her toes hurting. She does not have any respiratory complaints however, and dior s not appear to be any in any respiratory distress at all. Medications: Reviewed: Yes Vitals/I&O/Wt Last Vital Signs Temp 98.3 F 09/24/21 08:40 Pulse 75 09/24/21 08:40 Resp 14 09/24/21 08:40 BP 163/73 09/24/21 08:40 Pulse Ox 97 09/24/21 08:40 09/23/21 09/24/21 09/24/21 22:59 06:59 14:59 Intake Total 50 / 50 450 / 500 Output Total 1300 / 1300 750 / 750 Balance 50 / 50 -850 / -800 -750 / -750 Weight last 48 hrs Weight 200 lb 1 oz Weight 200 lb Physical Exam Narrative: On examination she appear no distress. Vital signs as documented. Skin warm and dry and without overt rashes. Neck without JVD. Lungs reveal bilateral faint rales, and perhaps some decreased breath sounds in the left chest. Her slumped over habitus, but contributes to her not taking superodeep breath. Heart exam notable for regular rhythm, normal sounds and absence of murmurs, rubs or gallops. Abdomen unremarkable and without evidence of organomegaly, masses, or abdominal aortic enlargement. Urinary Catheter Management: Adam: Cath Placed During This Visit: yes Reason for Continuing Indwelling Catheter: Other Urinary Catheter Date of Insertion: 09/24/21 Urinary Catheter Time of Insertion: 01:00 Data : 09/24/21 02:39 09/24/21 02:39 Micro: Microbiology 09/23/21 20:00 Blood Culture - Preliminary Blood SPECIMEN COLLECTED 09/23/21 19:46 Blood Culture - Preliminary Blood SPECIMEN COLLECTED A&P Assessment and plan (1) Acute respiratory failure with hypoxia: I think this is related to some mild to moderate pulmonary edema. Her chest x- ray in the ER is not of great quality, and it does reveal that perhaps she has a pleural effusion on the left side. I think this is probably exacerbated by the way that her posture is, as well as her known large hiatal hernia. Also of note her platelets are 86 which does not preclude a thoracentesis but makes it a little more dangerous. I discussed her case with Dr. Rose, and it is apparent that Dr. Rose is a bit reticent to do a thoracentesis on her as well, so I have informed Dr. Rose that we are going to go ahead and just do the diuresis, and forego the thoracentesis for now. She clinically does not have any respiratory issues today, and I think being conservative given her age and functional status is in order here. Status: Acute (2) Pleural effusion: See my comments above Status: Acute Attestations Medical Necessity Statement*: Yanelis continue her to keep her here for some continued IV diuresis and monitoring Coding Level of Care Code Acute Automatic Tire Tester for Paramjit Low Diagnoses Acute respiratory failure with hypoxia J96.01 Pleural effusion J90
--- NOTE | 2021-09-24 10:07 | PC.CHAP ---
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 [] Patient/Family/Request visit [] Outpatient visit [] Follow-up visit [] Physician referral [] Code/Alert [x] Routine visit [] Staff referral [] Actively dying [] Patient sleeping [] Family support [] [] Out of room [] Palliative care [] ] Receiving care in room [] Pre-surgical visit [] Trauma [] Long length of stay [] ICU visit [] Other: Relational/Emotional Strength ] Patient feels connected with others/family/visitors/staff [] Distress [] Loneliness/isolation [] Abandonment Spirituality of Patient [] Person of Sujatha [] Attends Latter Day of their Sujatha [] Believes in Prayer [] Reads Bible or Sabianism materials [] There are Spiritual issues to be addressed Public Speaker Interventions [] Prayer [] Active listening [] Non-anxious presence [] Spiritual/emotional support [] Crisis/trauma care [] Spiritual counseling [] Bereavement support [] Provided bereavement packet [] Provided Bible/devotional materials [] Provided toy/stuffed animal, coloring book to patient or family member [] Provided Communion [] Anointing/[place] [] Salvation [] Completed spiritual assessment [] Other: Impact on Illness or Injury [] Angry [] Fearful [] Anxious [] Often cries [] Exhaustion [] Unable to work [] Unable to attend sabianism [] Unable to walk/stand [] Unable to read [] Unable to drive [] Unable to eat/drink [] Unable to sleep [] Unable to be with family [] Patient intubated [] Other: Summary Time spent with patient
--- NOTE | 2021-09-24 10:40 | PC.PHAR ---
pt is from [facility] from [facility] states the pt takes the medications entered
[2021-09-24] MEDS: FUROsemide 10 mg/mL SDV 10mL 60 MG IVP ×2 (10:49→21:52)
[2021-09-24] MEDS: lisinopril 10 mg Tablet PO (12:00)
[2021-09-24] MEDS: pantoprazole DR 40 mg Tablet PO (12:00)
--- NOTE | 2021-09-24 12:26 | PC.NURSE ---
Low Potassium- 3.[address] Martinez of low potassium of 3.4. Patient has furosemide 60mg IV administered. Ordered to give KCL 10meq x1 today. BMP will be checked in am.
[2021-09-24] MEDS: carvedilol 6.25 mg Tablet PO ×2 (14:19→17:58)
[2021-09-24] MEDS: sennosides 8.6 mg Tablet 17.2 MG PO (17:58)
[2021-09-24] MEDS: lanolin oint 7 gm 1 APPLIC TOPICAL (21:46)
[2021-09-25] VITALS (9 sets, daily range): BP systolic 142–179; BP diastolic 67–91; PULSE 67–82; RESP 15–20; TEMP 36.3–37.1; O2SAT 91–98
[2021-09-25 03:50] LABS: Blood Urea Nitrogen 12 mg/dL (8-23); Calcium 8.2 mg/dL (8.5-10.5); Carbon Dioxide 29 mmol/L (22-29); Chloride 103 mmol/L (98-107); Glucose 103 mg/dL (65-115); Osmolality Calculated 292 mOsm/kg (285-295); Sodium 141 mmol/L (136-145)
[2021-09-25] MEDS: HYDROcodone-acetaminophen 5-325 mg Tablet 1 TAB PO ×2 (06:07→15:18)
--- NOTE | 2021-09-25 07:46 | XRR_ITS ---
PROCEDURE INFORMATION: Exam: XR Chest Exam date and time: 09/25/2021 5:45 AM Age: 81 years old Clinical indication: Condition or disease; Lung condition and disease; Pleural effusion; Other: Not specified; Patient HX: PT unable to give history; Additional info: Pleural effusion, please do your best to get her up as straight as she can as TECHNIQUE: Imaging protocol: XR of the chest. Views: 2 views. Total images: 2 COMPARISON: CR (CHEST, ) 09/23/2021 5:50 PM FINDINGS: Lungs: Improving left pleuroparenchymal disease. Pleural spaces: No pneumothorax. Heart/Mediastinum: Calcified mediastinal lymph node. Heart size is stable when compared to the prior exam. Vasculature: Click atherosclerosis Bones/joints: Osseous structures are unchanged from the prior exam. XR/XR chest 2V insp/exp [id number] IMPRESSION: Improving left pleuroparenchymal disease.
[2021-09-25] MEDS: sennosides 8.6 mg Tablet 17.2 MG PO ×2 (09:24→18:23)
[2021-09-25] MEDS: pantoprazole DR 40 mg Tablet PO (09:25)
[2021-09-25] MEDS: levothyroxine 25 mcg Tablet PO (09:26)
[2021-09-25] MEDS: carvedilol 6.25 mg Tablet PO ×2 (09:26→18:24)
[2021-09-25] MEDS: allopurinol 100 mg Tablet PO (09:27)
[2021-09-25] MEDS: lisinopril 10 mg Tablet PO (09:27)
--- NOTE | 2021-09-25 09:41 | PM.PN ---
Subjective Subjective: She is cheerfully confused and in no distress on interview this morning. She looks like she feels better, and in her best possible way she seems to be telling me that she feels better. Her labs and x-rays are reviewed. Vitals/I&O/Wt Last Vital Signs Temp 98.0 F 09/25/21 07:48 Pulse 73 09/25/21 07:48 Resp 17 09/25/21 07:48 BP 179/76 09/25/21 07:48 Pulse Ox 95 09/25/21 07:48 09/24/21 09/25/21 09/25/21 22:59 06:59 14:59 Intake Total 250 / 250 480 / 730 Output Total 1600 / 2350 1200 / 3550 Balance -1350 / -2100 -720 / -2820 Weight last 48 hrs Weight 195 lb 11.2 oz Weight 200 lb 1 oz Weight 200 lb Physical Exam Narrative: On examination she appear no distress. Vital signs as documented. Skin warm and dry and without overt rashes. Neck without JVD. Lungs more clear this morning. Still an occasional rale heard in the bases. Heart exam notable for regular rhythm, normal sounds and absence of murmurs, rubs or gallops. Abdomen unremarkable and without evidence of organomegaly, masses, or abdominal aortic enlargement. Urinary Catheter Management: Adam: Cath Placed During This Visit: yes Reason for Continuing Indwelling Catheter: Other Urinary Catheter Date of Insertion: 09/24/21 Urinary Catheter Time of Insertion: 01:00 Data : 09/24/21 02:39 09/25/21 02:04 Micro: Microbiology 09/23/21 20:00 Blood Culture - Preliminary Blood NEGATIVE TO DATE 09/23/21 19:46 Blood Culture - Preliminary Blood NEGATIVE TO DATE CXR: My impression: I agree with the radiologist impression, that her pulmonary edema is improved. Her pleural effusion is not very big because it smashed by her hiatal hernia. A&P Assessment and plan (1) Pleural effusion: Much improved with diuresis, and better radiographic technique. A plan on 1 more day of IV diuresis and try to get her back to her [facility] tomorrow. Status: Acute (2) Hypoxia: Resolving Status: Acute (3) Hypokalemia due to excessive renal loss of potassium: Significant, therefore I will add a fairly good dose of oral potassium. Follow her electrolytes Status: Acute Attestations Medical Necessity Statement*: She needs 1 more midnight here with us so I can continue to diurese her pulmonary edema. Coding Level of Care Code Acute Clay Dry Press Mixer Operator for Tabg Devante Diagnoses Pleural effusion J90 Hypoxia R09.02 Hypokalemia due to excessive renal loss of potassium E87.6
--- NOTE | 2021-09-25 10:37 | PC.CHAP ---
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 electric sealing machine operator visit [] Patient/Family/Request visit [] Outpatient visit [] Follow-up visit [] Physician referral [] Code/Alert [x] Routine visit [] Staff referral [] Actively dying [] Patient sleeping [] Family support [] [] Out of room [] Palliative care [] [x] Receiving care in room [] Pre-surgical visit [] Trauma [] Long length of stay [] ICU visit [] Other: Relational/Emotional Strength [x] Patient feels connected with others/family/visitors/staff [] Distress [] Loneliness/isolation [] Abandonment Spirituality of Patient [x] Person of Sujatha [] Attends Jew of their Sujatha [x] Believes in Prayer [] Reads Bible or Yazdanism materials [] There are Spiritual issues to be addressed Parking Enforcement Manager Interventions [x] Prayer [x] Active listening [x] Non-anxious presence [x] Spiritual/emotional support [] Crisis/trauma care [x] Spiritual counseling [] Bereavement support [] Provided bereavement packet [] Provided Bible/devotional materials [] Provided toy/stuffed animal, coloring book to patient or family member [] Provided Communion [] Anointing/[place] [] Salvation [x] Completed spiritual assessment [] Other: Impact on Illness or Injury [] Angry [] Fearful [x] Anxious [] Often cries [] Exhaustion [x] Unable to work [] Unable to attend gnosticist [] Unable to walk/stand [] Unable to read [] Unable to drive [] Unable to eat/drink [] Unable to sleep [] Unable to be with family [] Patient intubated [] Other: Summary senior had a proceedure on back in some pain well be going home not sure about a bout rehab, has posative attitude Time spent with patient 10 mins
[2021-09-25] MEDS: FUROsemide 10 mg/mL SDV 10mL 40 MG IVP (11:35)
[2021-09-25] MEDS: potassium chloride ER 20 mEq Tablet PO (18:24)
[2021-09-26] VITALS (8 sets, daily range): BP systolic 164–193; BP diastolic 70–92; PULSE 66–91; RESP 16–20; TEMP 36.4–37.1; O2SAT 91–97
[2021-09-26] MEDS: HYDROcodone-acetaminophen 5-325 mg Tablet 1 TAB PO ×3 (00:17→18:10)
[2021-09-26 01:24] LABS: Bacillus cereus group Not Detected (NOT DETECT); Bacillus subtillis group Not Detected (NOT DETECT); Corynebacterium Detected (NOT DETECT); Cutibacterium acnes (P.acnes) Not Detected (NOT DETECT); Enterococcus Not Detected (NOT DETECT); Enterococcus faecalis Not Detected (NOT DETECT); Enterococcus faecium Not Detected (NOT DETECT); Lactobacillus species Not Detected (NOT DETECT); Listeria Not Detected (NOT DETECT); Listeria monocytogenes Not Detected (NOT DETECT); Micrococcus Not Detected (NOT DETECT); Pan Candida Not Detected (NOT DETECT); Pan Gram-Negative Not Detected (NOT DETECT); Staphylococcus epidermidis Not Detected (NOT DETECT); Staphylococcus lugdunensis Not Detected (NOT DETECT); Staphylococcus species Not Detected (NOT DETECT); Streptococcus agalactiae Not Detected (NOT DETECT); Streptococcus anginosus group Not Detected (NOT DETECT); Streptococcus pneumoniae Not Detected (NOT DETECT); Streptococcus pyogenes Not Detected (NOT DETECT); Streptococcus species Not Detected (NOT DETECT)
[2021-09-26 03:24] LABS: Blood Urea Nitrogen 16 mg/dL (8-23); Calcium 8.2 mg/dL (8.5-10.5); Carbon Dioxide 27 mmol/L (22-29); Chloride 100 mmol/L (98-107); Glucose 100 mg/dL (65-115); Osmolality Calculated 285 mOsm/kg (285-295); Sodium 137 mmol/L (136-145)
[2021-09-26] MEDS: potassium chloride ER 20 mEq Tablet PO (09:20)
[2021-09-26] MEDS: FUROsemide 10 mg/mL SDV 10mL 40 MG IVP (09:21)
--- NOTE | 2021-09-26 09:36 | PC.NURSE ---
Called Dr. Martinez with patient update. patient was barely able to keep down KCl pill and pain medication. She refuses to take any other medication orally, even if it was crushed in apple sauce. Physician said that he would be visiting patient soon.
--- NOTE | 2021-09-26 10:01 | PM.PN ---
Subjective Subjective: Daksha does not look like she feels great this morning. After she got her morning meds, she proceeded to throw them up. She is a tough historian, but she says that her abdomen is a little bit uncomfortable. Vitals/I&O/Wt Last Vital Signs Temp 97.9 F 09/26/21 04:00 Pulse 76 09/26/21 08:00 Resp 16 09/26/21 08:00 BP 173/92 09/26/21 07:16 Pulse Ox 97 09/26/21 08:00 09/25/21 09/26/21 09/26/21 22:59 06:59 14:59 Intake Total 890 / 890 Output Total 1400 / 1400 200 / 1600 Balance -1400 / -1400 690 / -710 Weight last 48 hrs Weight 188 lb 6.4 oz Weight 195 lb 11.2 oz Physical Exam Narrative: She is a little bit distressed. Vital signs are noted. Mucous membranes are tacky and her mouth is dry. Regular rate and rhythm, lungs clear. She might be a touch tender in her epigastrium, but she has good bowel sounds. Urinary Catheter Management: Adam: Cath Placed During This Visit: yes Reason for Continuing Indwelling Catheter: Other Urinary Catheter Date of Insertion: 09/24/21 Urinary Catheter Time of Insertion: 01:00 Data : 09/24/21 02:39 09/26/21 02:33 Micro: Microbiology 09/25/21 14:14 C.difficile Toxin B Gene (PCR) - Final Stool 09/23/21 20:00 Blood Culture - Preliminary Blood Corynebacterium species 09/23/21 19:46 Blood Culture - Preliminary Blood NEGATIVE TO DATE A&P Assessment and plan (1) Hypokalemia due to excessive renal loss of potassium: I think the potassium pills are made her sick to her stomach. I will replete her with IV fluid instead. I think we have over diuresed her a little bit as well. We will give her some gentle fluid and hold her diuresis today. Status: Acute (2) Acute respiratory failure with hypoxia: This is pretty much resolved Status: Acute (3) Pleural effusion: Status: Acute Attestations Medical Necessity Statement*: I need to keep her here at least 1 more midnight to get her potassium levels up and give her some gentle fluid as we seem to over diuresed her a bit. Coding Level of Care Code Acute Rehabilitation Assistant for Chg Fwd Diagnoses Hypokalemia due to excessive renal loss of potassium E87.6 Acute respiratory failure with hypoxia J96.01 Pleural effusion J90
[2021-09-26] MEDS: sodium chloride 0.45% 1,000 ML 100 ML IV ×2 (10:33→20:33)
[2021-09-26] MEDS: lidocaine 1% 5 ML in potassium chloride premix 100 ML 25 ML IV (10:33)
--- NOTE | 2021-09-26 13:27 | ECG_ITS ---
[facility] Test Date: 2021-09-26 Pat Name: Daksha Machuca Department: Room: 252 Gender: Female Tobacco Weigher: : 1940 Requested By: Jean Martinez Order Number: [id number] Magalys MD: Mavis Paige M.D. Measurements Intervals [place] Rate: 79 P: 3 GA: 141 QRS: 48 QRSD: 94 T: 3 QT: 387 QTc: 445 Interpretive Statements SINUS RHYTHM Compared to ECG 09/23/2021 19:31:12 No significant changes Electronically Signed On 09-26-2021 20:19:24 CDT by Mavis Paige M.D. [id number]
--- NOTE | 2021-09-26 13:47 | XR_ITS ---
WS: [id number] KUB, portable AP supine, 09/26/2021 Clinical Data: Per Physician Order Comparison: KUB, 06/27/2020. Findings: No abnormal intraabdominal masses or calcifications are seen. There is no dilatated small bowel or ev idence of obstruction. There is a levoscoliosis with osteoarthritis of the lumbar spine. There are right upper quadrant and a left upper quadrant clip. The bowel gas pattern is not remarkable. Monitor leads are on the abdomin al wall. There are 3 orthopedic screws in the left hip. XR/XR KUB portable [id number] Impression: 1. No definite renal or ureteral calculi. 2. Levoscoliosis with osteoarthritis and left hip pins reducing an old left hip fracture.
--- NOTE | 2021-09-26 14:35 | P.EN_ITS ---
Event Note Event Note: I had noticed that Mrs. Machuca was listed as full code here in the chart. I called her son to update him on her current status. I had a long discussion with him about her CODE STATUS and he stated that his is a respiratory therapist and so he has some tangential experience with what is in volved in a CODE BLUE. He stated that he was a little bit blindsided the night that she was admitted to the hospital because the snf did not let him know that she was admitted. He agreed to rescind her full CODE STATUS and change her back to allow natural , therefore we will abide by his wishes and hers as she relayed them to him when she was more lucid.
[2021-09-26 14:38] LABS: Basophils % 0.3 %; Eosinophils # 0.1 10^3/uL (0.0-0.8); Hematocrit 40.4 % (37.0-47.0); Hemoglobin 12.9 g/dL (11.5-15.3); Lymphocytes # 0.9 10^3/uL (0.8-4.8); Lymphocytes % 15.1 %; Mean Corpuscular HGB Conc 31.9 g/dL (30.0-36.0); Mean Corpuscular Hemoglobin 31.9 pg (28.0-34.0); Mean Corpuscular Volume 99.8 fl (81-99); Monocytes # 0.5 10^3/uL (0.2-0.9); Neutrophils # 4.68 10^3/uL (1.8-7.7); Neutrophils % 75.3 %; Nucleated Red Blood Cells % 0 %; Platelet Count 100 10^3/cmm (130-400); Red Blood Count 4.05 10^6/uL (4.1-5.3); Red Cell Distribution Width 14.5 % (12.1-15.1); White Blood Count 6.2 10^3/uL (4.0-10.0)
[2021-09-26 14:51] LABS: Alanine Aminotransferase 13 U/L (0-33); Alkaline Phosphatase 137 IU/L (35-105); Blood Urea Nitrogen 17 mg/dL (8-23); Calcium 8.7 mg/dL (8.5-10.5); Carbon Dioxide 24 mmol/L (22-29); Chloride 102 mmol/L (98-107); Globulin 3.8 g/dL (1.3-4.6); Glucose 147 mg/dL (65-115); Osmolality Calculated 292 mOsm/kg (285-295); Sodium 139 mmol/L (136-145); Total Protein 6.8 g/dL (6.6-8.7)
[2021-09-26 14:55] LABS: Anion Gap 16.6 (5-19); Aspartate Amino Transferase 28 U/L (0-32); Potassium 3.6 mmol/L (3.5-5.1)
[2021-09-26] MEDS: sennosides 8.6 mg Tablet 17.2 MG PO (18:10)
[2021-09-26] MEDS: carvedilol 6.25 mg Tablet PO (18:10)
[2021-09-26] MEDS: ondansetron 2 mg/ML SDV 2 mL 4 MG IVP (18:33)
[2021-09-26] MEDS: labetalol 5 mg/mL SDV 20mL 10 MG IVP (23:49)
--- NOTE | 2021-09-26 23:54 | PC.NURSE ---
NIDIA Bowling reported BP of 194/86 to this RN, PRN labetalol given per parameter SBP >180.
[2021-09-27] VITALS (8 sets, daily range): BP systolic 156–195; BP diastolic 70–86; PULSE 61–89; RESP 16–21; TEMP 36.4–36.8; O2SAT 91–97
[2021-09-27 03:31] LABS: Anion Gap 14.4 (5-19); Blood Urea Nitrogen 19 mg/dL (8-23); Calcium 8.6 mg/dL (8.5-10.5); Carbon Dioxide 26 mmol/L (22-29); Chloride 101 mmol/L (98-107); Glucose 143 mg/dL (65-115); Osmolality Calculated 291 mOsm/kg (285-295); Potassium 3.4 mmol/L (3.5-5.1); Sodium 138 mmol/L (136-145)
[2021-09-27 05:08] LABS: Eosinophils % 0.2 %; Hematocrit 38.8 % (37.0-47.0); Hemoglobin 12.7 g/dL (11.5-15.3); Lymphocytes # 0.9 10^3/uL (0.8-4.8); Lymphocytes % 15.7 %; Mean Corpuscular HGB Conc 32.7 g/dL (30.0-36.0); Mean Corpuscular Hemoglobin 32.8 pg (28.0-34.0); Mean Corpuscular Volume 100.3 fl (81-99); Mean Platelet Volume 10.9 fL (7.4-10.4); Monocytes # 0.6 10^3/uL (0.2-0.9); Monocytes % 9.9 %; Neutrophils % 73.7 %; Nucleated Red Blood Cells % 0 %; Platelet Count 91 10^3/cmm (130-400); Red Blood Count 3.87 10^6/uL (4.1-5.3); Red Cell Distribution Width 14.5 % (12.1-15.1)
[2021-09-27] MEDS: sodium chloride 0.45% 1,000 ML 100 ML IV (06:05)
[2021-09-27] MEDS: HYDROcodone-acetaminophen 5-325 mg Tablet 1 TAB PO (06:05)
[2021-09-27 06:09] LABS: Glucose Point of Care 124 mg/dL (70-110)
--- NOTE | 2021-09-27 07:18 | PC.NURSE ---
Nurse was notified of high Blood pressure
[2021-09-27] MEDS: labetalol 5 mg/mL SDV 20mL 10 MG IVP (07:35)
[2021-09-27] MEDS: ondansetron 2 mg/ML SDV 2 mL 4 MG IVP (07:36)
--- NOTE | 2021-09-27 08:30 | PC.SOCIAL ---
IMM update IMM updated with patient. Pg 2 provided to patient. Verbalized an understanding. Initialled, dated, timed, and placed in chart.
--- NOTE | 2021-09-27 08:32 | XRR_ITS ---
PROCEDURE INFORMATION: Exam: XR Chest Exam date and time: 09/27/2021 12:59 PM Age: 81 years old Clinical indication: Dyspnea; Additional info: Dyspnea, aspiration TECHNIQUE: Imaging protocol: XR of the chest. Views: 1 view. COMPARISON: CR XR chest 2V insp/exp [id number] 09/25/2021 5:45 AM FINDINGS: Lungs: Moderate left basilar atelectasis and/or infiltrate and/or effusion. Stable calcified bilateral hilar nodes and/or mediastinal nodes and/or lung granulomas consistent with old granulomatous disease. Pleural spaces: Unremarkable. No pleural effusion. No pneumothorax. Heart/Mediastinum: Unremarkable. No cardiomegaly. Bones/joints: Unremarkable. Soft tissues: Examination is limited secondary to body habitus. Other findings: Patient rotation to the right. XR/XR chest 1V portable [id number] IMPRESSION: Moderate left basilar atelectasis and/or infiltrate and/or effusion.
[2021-09-27] MEDS: pantoprazole DR 40 mg Tablet PO (11:15)
[2021-09-27] MEDS: carvedilol 6.25 mg Tablet PO ×2 (11:15→17:58)
[2021-09-27] MEDS: lisinopril 20 mg Tablet PO (11:16)
[2021-09-27] MEDS: levothyroxine 25 mcg Tablet PO (11:16)
[2021-09-27] MEDS: allopurinol 100 mg Tablet PO (11:16)
[2021-09-27] MEDS: sennosides 8.6 mg Tablet 17.2 MG PO ×2 (11:16→17:58)
--- NOTE | 2021-09-27 12:44 | PM.PN ---
Subjective Subjective: 81-year-old female admitted for acute respiratory failure with hypoxia. This morning patient appears very tired. Nursing says that she did receive some pain medicine around 6 AM. Patient states that she still does not feel very well. She is unable to describe how she feels bad. She does indicate that her abdomen is tender. She denies any nausea or vomiting. Her medical record does indicate that she has some level of dementia. She denies other concerns this morning. Vitals/I&O/Wt Last Vital Signs Temp 98.3 F 09/27/21 07:17 Pulse 89 09/27/21 11:34 Resp 18 09/27/21 11:34 BP 165/78 09/27/21 11:34 Pulse Ox 97 09/27/21 11:34 09/26/21 09/27/21 09/27/21 22:59 06:59 14:59 Intake Total 1685 / 1685 1340 / 3025 240 / 240 Output Total 1200 / 1200 100 / 1300 100 / 100 Balance 485 / 485 1240 / 1725 140 / 140 Weight last 48 hrs Weight 188 lb 3.2 oz Weight 188 lb 6.4 oz Physical Exam Narrative: General: Pleasant, cooperative patient. Uncomfortable appearing. Well developed. HEENT: Normocephalic, Atraumatic. External ears normal. Nasal passages patent without drainage. MMM. Resp: Lungs with fine crackles at the bases. No wheezes or rhonchi. No respiratory distress, no use of accessory muscles. Abd: Soft, tender to palpation through all quadrants. Non-distended. Bowel sounds present. Extremities: No edema. Skin: No rash or lesions on exposed areas. Neuro: Patient is oriented to person only. No focal motor or sensory deficits noted. Urinary Catheter Management: Adam: Cath Placed During This Visit: yes Reason for Continuing Indwelling Catheter: Other Urinary Catheter Date of Insertion: 09/24/21 Urinary Catheter Time of Insertion: 01:00 Data : 09/27/21 04:58 09/27/21 02:52 Micro: Microbiology 09/25/21 14:14 C.difficile Toxin B Gene (PCR) - Final Stool 09/23/21 20:00 Blood Culture - Preliminary Blood Corynebacterium species A&P Assessment and plan (1) Acute respiratory failure with hypoxia: Status: Acute (2) Hypokalemia due to excessive renal loss of potassium: Status: Acute (3) Hypoxia: Status: Acute (4) Pleural effusion: Status: Acute (5) Hypertension: Status: Acute Plan 81-year-old female admitted for acute respiratory failure with hypoxia. Vitals indicate that her blood pressure is still little bit high. Her oxygen saturation has improved on room air. There is ongoing concern that patient is having difficulties swallowing, and is at risk for aspiration. Speech therapy to evaluate and treat. Repeat chest x-ray today given her exam findings. Potassium is improved to 3.4. Stop IV fluids today. C. difficile was negative. Blood cultures showed probable contaminant in 1/4 bottles. IVF: None DVT PPx: none GI PPx: None O2: RA Diet: Pureed, thickened liquids. Attestations Medical Necessity Statement*: Patient will need continued inpatient monitoring and treatment for pleural effusion, hypokalemia, acute respiratory failure. Coding Level of Care Code Acute Domestic Technician for Paramjit Low Diagnoses Acute respiratory failure with hypoxia J96.01 Hypokalemia due to excessive renal loss of potassium E87.6 Hypoxia R09.02 Pleural effusion J90 Hypertension I10
--- NOTE | 2021-09-27 15:29 | PC.NURSE ---
I did Put the nasal cannula back on pt
[2021-09-28] VITALS: BP 186/77; PULSE 65; RESP 16; TEMP 37.1; O2SAT 98
[2021-09-28 03:59] VITALS: BP 170/75; PULSE 63; RESP 17; TEMP 37.1; O2SAT 95
[2021-09-28 07:06] VITALS: BP 189/74; PULSE 63; RESP 18; TEMP 37.2; O2SAT 97
[2021-09-28 07:36] VITALS: PULSE 68; RESP 16; O2SAT 96
[2021-09-28] MEDS: sennosides 8.6 mg Tablet 17.2 MG PO (08:24)
[2021-09-28] MEDS: carvedilol 6.25 mg Tablet PO (08:25)
--- NOTE | 2021-09-28 11:05 | PC.NURSE ---
Owen called at this time for report. JAVIER Chowdhury received report. Patient's trujillo catheter was removed and patient has already urinated.
[2021-09-28 11:27] VITALS: BP 163/71; PULSE 81; RESP 17; TEMP 36.7; O2SAT 97
--- NOTE | 2021-09-28 12:25 | PM.DCS ---
Discharge Providers Date of Admission: 09/24/21 19:52 Date of Discharge: September 28, 2021 Attending Provider at Admission: Odalys Aguilera MD Attending Provider at Discharge: Felice Bryson DO Primary Care Provider: Sudheer Wood MD Diagnoses at Discharge Discharge Diagnosis (1) Acute respiratory failure with hypoxia: Status: Acute (2) Hypokalemia due to excessive renal loss of potassium: Status: Acute (3) Hypoxia: Status: Acute (4) Pleural effusion: Status: Acute (5) Hypertension: Status: Acute Reason for Visit Reason for Visit: POSSIBLE ASPIRATION Brief History: Patient admitted for acute respiratory failure and altered mental status. She lives in SNF and had PMH of dementia and recurrent UTI's. She has been having difficulties with dysphagia and frequent choking on her food. She felt that she was having fevers and feeling ill prior to being sent to the ER. Reports today that she is feeling better. Denies pain or problem this morning. She has had no further episodes of choking since diet was modified. Hospital Course Hospital Course In ER she was noted to be hypoxic. CXR was concerning for infiltrates and L pleural effusion. She had mild hypokalemia and Mag that were replaced. She did receive one dose of ABx in the ER and this was stopped as infection was ruled out. Procalcitonin was negative. She had improvement in symptoms with diuresis. Diet was modified and PHLEBOTOMY SUPERVISOR evaluated for diet modification. Over the course of hospitalization, her vitals improved and she was weaned from oxygen. Labs improved with supplementation. She was discharged back to SNF in stable and improved condition. Physical Exam Narrative: General: Pleasant, cooperative patient.? Uncomfortable appearing. Well developed. HEENT:? Normocephalic, Atraumatic. External ears normal.? Nasal passages patent without drainage.? MMM. Resp: Lungs with fine crackles at the bases.? No wheezes or rhonchi. No respiratory distress, no use of accessory muscles. Abd: Soft, tender to palpation through all quadrants.? Non-distended.? Bowel sounds present. Extremities:? No edema. Skin:? No rash or lesions on exposed areas. Neuro: Patient is oriented to person only.? No focal motor or sensory deficits noted. Urinary Catheter Management: Adam: Cath Placed During This Visit: yes Reason for Continuing Indwelling Catheter: Acute Urinary Retention or Obstruction Urinary Catheter Date of Insertion: 09/24/21 Urinary Catheter Time of Insertion: 01:00 Discharge Data Studies Completed and Pending Completed Studies During Hospitalization Category Date Time Status CXRIE [XR chest 2V insp/exp [id number]] Routine Exams 09/25/21 07:46 Completed XR KUB portable [id number] Stat Exams 09/26/21 13:47 Completed XR chest 1V portable [id number] Routine Exams 09/27/21 08:32 Completed XR chest 1V portable [id number] Stat Exams 09/23/21 17:39 Completed CV. echo complete* [id number] Routine Ultrasound 09/23/21 22:27 Completed Pending at discharge Category Date Time Status Blood Culture Stat Lab 09/23/21 19:46 Results Radiology Impressions KUB X-Ray 09/26/21 13:47 Impression: 1. No definite renal or ureteral calculi. 2. Levoscoliosis with osteoarthritis and left hip pins reducing an old left hip fracture. Chest X-Ray 09/27/21 08:32 IMPRESSION: Moderate left basilar atelectasis and/or infiltrate and/or effusion. Laboratory Results WBC 6.0 10^3/uL (4.0-10.0) 09/27/21 04:58 Corrected WBC Cancelled 09/27/21 02:52 RBC 3.87 10^6/uL (4.1-5.3) L 09/27/21 04:58 Hgb 12.7 g/dL (11.5-15.3) 09/27/21 04:58 Hct 38.8 % (37.0-47.0) 09/27/21 04:58 MCV 100.3 fl (81-99) H 09/27/21 04:58 MCH 32.8 pg (28.0-34.0) 09/27/21 04:58 MCHC 32.7 g/dL (30.0-36.0) 09/27/21 04:58 RDW 14.5 % (12.1-15.1) 09/27/21 04:58 Plt Count 91 10^3/cmm (130-400) L 09/27/21 04:58 MPV 10.9 fL (7.4-10.4) H 09/27/21 04:58 Gran % Cancelled 09/27/21 02:52 Neut % (Auto) 73.7 % 09/27/21 04:58 Lymph % (Auto) 15.7 % 09/27/21 04:58 Tripp % (Auto) 9.9 % 09/27/21 04:58 Eos % (Auto) 0.2 % 09/27/21 04:58 Baso % (Auto) 0.0 % 09/27/21 04:58 Neut # (Auto) 4.40 10^3/uL (1.8-7.7) 09/27/21 04:58 Lymph # (Auto) 0.9 10^3/uL (0.8-4.8) 09/27/21 04:58 Tripp # (Auto) 0.6 10^3/uL (0.2-0.9) 09/27/21 04:58 Eos # (Auto) 0.0 10^3/uL (0.0-0.8) 09/27/21 04:58 Baso # (Auto) 0.0 10^3/uL (0.0-0.1) 09/27/21 04:58 Absolute Gran (auto) Cancelled 09/27/21 02:52 Nucleated RBC % (auto) 0 % 09/27/21 04:58 Nucleated RBCs # 0.0 /100WBC 09/27/21 04:58 PT 15.20 SECONDS (12.1-14.9) H 09/24/21 02:39 INR 1.16 (0.8-1.2) 09/24/21 02:39 D-Dimer 1.99 ug/mIFEU (0-0.59) H 09/23/21 22:51 Sodium 138 mmol/L (136-145) 09/27/21 02:52 Potassium 3.4 mmol/L (3.5-5.1) L 09/27/21 02:52 Chloride 101 mmol/L (98-107) 09/27/21 02:52 Carbon Dioxide 26 mmol/L (22-29) 09/27/21 02:52 Anion Gap 14.4 (5-19) 09/27/21 02:52 BUN 19 mg/dL (8-23) 09/27/21 02:52 Creatinine 0.6 mg/dL (0.5-0.9) 09/27/21 02:52 GFR Calculation Not Reportable 09/27/21 02:52 Glucose 143 mg/dL (65-115) H 09/27/21 02:52 POC Glucose 124 mg/dL (70-110) H 09/27/21 06:00 Calculated Osmolality 291 mOsm/kg (285-295) 09/27/21 02:52 Calcium 8.6 mg/dL (8.5-10.5) 09/27/21 02:52 Magnesium 1.5 mg/dL (1.7-2.3) L 09/24/21 02:39 Total Bilirubin 1.0 mg/dL (0.15-1.2) 09/26/21 14:26 AST 28 U/L (0-32) 09/26/21 14:26 ALT 13 U/L (0-33) 09/26/21 14:26 Alkaline Phosphatase 137 IU/L (35-105) H 09/26/21 14:26 Lactate Dehydrogenase 280 U/L (135-214) H 09/24/21 02:39 C-Reactive Protein 11.6 mg/L (0.0-4.9) H 09/24/21 02:39 NT-Pro-B Natriuret Pep 335 pg/mL (0-450) 09/23/21 22:51 Total Protein 6.8 g/dL (6.6-8.7) 09/26/21 14:26 Albumin 3.0 g/dL (3.5-5.2) L 09/26/21 14:26 Globulin 3.8 g/dL (1.3-4.6) 09/26/21 14:26 Procalcitonin 0.06 ng/mL (0-0.5) 09/23/21 22:51 TSH 2.08 uIU/mL (0.27-4.20) 09/23/21 22:51 Vitals Last Vital Signs Temp 98.1 F 09/28/21 11:27 Pulse 81 09/28/21 11:27 Resp 17 09/28/21 11:27 BP 163/71 09/28/21 11:27 Pulse Ox 97 09/28/21 11:27 Discharge Plan Discharge Patient Disposition: Xfer SNF Condition: Stable Prescriptions: New lisinopril 40 mg tablet 40 mg PO DAILY Qty: 30 0RF Continued alprazolam 0.25 mg tablet 0.25 mg PO BID@08,20 0RF magnesium hydroxide [Milk of Magnesia] 400 mg/5 mL suspension 30 ml PO Q24H PRN (Reason: Constipation) 0RF fluticasone propionate 50 mcg/actuation spray,suspension 1 spray intranasal BID@09,21 0RF Rx Instructions: administer into each nostril fexofenadine-pseudoephedrine [Nichole-D 24 Hour] 180-240 mg tablet extended release 24 hr 1 tab PO DAILY@08 0RF sertraline 25 mg tablet 25 mg PO DAILY@07 0RF Xtampza ER 18 mg cap,sprinkl,ER12hr(DONT CRUSH) 18 mg PO BID 0RF Rx Instructions: must administer with a meal/food solifenacin [Vesicare] 5 mg tablet 5 mg PO DAILY Qty: 30 12RF polyethylene glycol 3350 [Miralax] 17 gram/dose powder 17 gm PO .EVERY 2 DAYS 0RF Rx Instructions: hold for loose stools carvedilol 6.25 mg tablet 6.25 mg PO BID@08,20 0RF furosemide [Lasix] 20 mg tablet 20 mg PO DAILY@08 0RF hydrocodone-acetaminophen 5-325 mg tablet 1 tab PO Q4H PRN (Reason: Pain) 0RF allopurinol 100 mg tablet 200 mg PO DAILY@08 0RF nitrofurantoin monohyd/m-cryst [Macrobid] 100 mg capsule 100 mg PO BID Qty: 60 2RF Rx Instructions: must administer with a meal/food bisacodyl 10 mg Suppository 10 mg OK DAILY PRN (Reason: Constipation) 0RF multivitamin Tablet 1 tab PO DAILY@07 0RF gabapentin 600 mg Tablet 600 mg PO TID@07,14,20 0RF albuterol sulfate 2.5 mg /3 mL (0.083 %) Solution For Nebulization 2.5 mg INHALATION Q4H PRN (Reason: Shortness Of Breath) 0RF ondansetron HCl 4 mg Tablet 4 mg PO Q4H PRN (Reason: Nausea And Vomiting) 0RF Stool Softener-Laxative 8.6-50 mg Tablet 2 tab PO BID@08,20 0RF levothyroxine 25 mcg tablet 25 mcg PO DAILY@06 0RF pantoprazole 40 mg Tablet,Delayed Release (Dr/Ec) 40 mg PO BID 0RF Oymft-Zs-Yqx Enema 19-7 gram/118 mL Enema 118 ml OK DAILY PRN (Reason: Constipation) 0RF tobramycin-dexamethasone 0.3-0.1 % drops,suspension 1 drp ophthalmic (eye) BID@08,20 0RF Rx Instructions: right eye cyclobenzaprine 5 mg Tablet 5 mg PO Q8H PRN (Reason: Muscle Pain) 0RF Discharge Orders: Discharge Order (Routine); Ordered 09/28/21 Ordered By: Felice Bryson Other Ambulatory Orders: Speech Language Pathology Eval and Treat Outpatient (Order) Timeframe: 1 Day Location: Determined by Patient Ordered By: Felice Bryson Referrals: Sudheer Wood MD [Primary Care Provider] - Patient Instructions: Lisinopril (By mouth), Aspiration Pneumonia (GEN) Discharge Attestations Time Spent in Discharge Care*: greater than 30 min Specific Discharge Activities: documenting/other paperwork and evaluating patient/reviewing data Quality Metrics Clinical Quality Measures [ No reported AMI, CVA or VTE this stay] Coding Level of Care Code Acute Chg FW DC note Diagnoses Acute respiratory failure with hypoxia J96.01 Hypokalemia due to excessive renal loss of potassium E87.6 Hypoxia R09.02 Pleural effusion J90 Hypertension I10
== END 2021-09-28 12:16 | disposition skilled nursing facility (03) | DRG 187 ==
LOC: ER 20:02 → MEDSURG 22:14
PROVIDERS: Family Medicine; Internal Medicine; Admitting Provider Internal Medicine; Emergency Provider Emergency Medicine; PCP Internal Medicine; Visit Provider Family Medicine
DX: J90 Pleural effusion, not elsewhere classified (principal); I50.42 Chronic combined systolic (congestive) and diastolic (congestive) heart failure; I11.0 Hypertensive heart disease with heart failure; R09.02 Hypoxemia; E87.6 Hypokalemia; F03.90 Unspecified dementia, unspecified severity, without behavioral disturbance, psychotic disturbance, mood disturbance, and anxiety; I25.10 Atherosclerotic heart disease of native coronary artery without angina pectoris; K21.9 Gastro-esophageal reflux disease without esophagitis; I16.0 Hypertensive urgency; R13.10 Dysphagia, unspecified; K44.9 Diaphragmatic hernia without obstruction or gangrene; E11.51 Type 2 diabetes mellitus with diabetic peripheral angiopathy without gangrene; K22.4 Dyskinesia of esophagus; Z86.73 Personal history of transient ischemic attack (TIA), and cerebral infarction without residual deficits; Z87.440 Personal history of urinary (tract) infections; Z79.899 Other long term (current) drug therapy; Z66 Do not resuscitate
CPT/HCPCS: 32555; 36415; 36416; 36600; 51702; 70450; 70551; 71045; 71046; 71275; 74018; 78452; 80048; 80051; 80053; 80307; 80503; 81001; 82140; 82330; 82607; 82746; 82805; 82945; 82962; 83615; 83690; 83735; 83880; 83986; 84145; 84157; 84439; 84443; 84484; 85025; 85378; 85610; 85730; 86140; 87040; 87070; 87075; 87077; 87086; 87150; 87186; 87205; 87493; 89050; 92523; 92610; 93005; 93017; 93306; 96365; 96367; 96372; 97110; 97161; 97530; 99285; A9500; C8924; G0378; J0360; J0696; J1650; J1940; J2405; J2543; J2785; J2930; J3370; J3480; J3490; J7040; J7050; Q9956; Q9967

== ENCOUNTER 2021-09-29 11:25 | Inpatient (IN) | payer MEDICARE, MEDICAID, SELFPAY ==
--- NOTE | 2021-09-29 11:25 | CT_ITS ---
WS: [id number] CT HEAD NONCONTRAST HISTORY: ams TECHNIQUE: Contiguous axial imaging performed through the brain in 2.5 mm imaging. Bone and soft tiss ue windows. Sagittal and coronal reformats reviewed. All CT scans at [facility] use at least one of these dose optimization techniques: automated exposure control; mA and/or kV adjustment per pa tient size (includes targeted exams where dose is matched to clinical indication); or iterative recon struction. DLP: 1776.61 mGy.cm COMPARISON: 07/22/2021 Quality is significantly limited by motion and beam hardening artifact. No acute intracranial hemorrhage, midline shift or mass effect. Atrophy and small vessel ischemic disease. Mild small vessel ischemic disease. Ventricles: Normal size with no hydrocephalus. No inferior displacement of cerebellar tonsils. Paranasal sinuses: Near complete opacification RIGHT maxillary sinus. Mastoid air cells: Well pneumatized. Calvarium and scalp: Skull is intact with no soft tissue edema or swelling. CT/CT head wo con* [id number] IMPRESSION: 1. No acute intracranial hemorrhage or edema. Quality is limited by motion art ifact and beam hardening artifact. 2. Atrophy and mild ventriculomegaly. No change since 07/22/2021. 3. RIGHT maxillary sinus opacification, stable.
--- NOTE | 2021-09-29 11:25 | XR_ITS ---
WS: [id number] XR chest 1V portable [id number] REASON FOR EXAM: ams FINDINGS: There is increased opacity in the left lower hemithorax which does not appear as severe as on the pre vious examination of 09/27/2021. This may be due to difference in positioning or interval thoracentesis . Correlation with recent history to be made. Otherwise, there is no significant interval change or new finding is noted. XR/XR chest 1V portable [id number] IMPRESSION: Interval change in the appearance of the left hemithorax as above.
--- NOTE | 2021-09-29 11:26 | ECG_ITS ---
[facility] Test Date: 2021-09-29 Pat Name: Daksha Machuca Department: Room: Gender: Female Slasher Tender: : 1940 Requested By: Noel Walton Order Number: [id number] Magalys MD: Mavis Paige M.D. Measurements Intervals [place] Rate: 67 P: 18 OR: 108 QRS: 57 QRSD: 102 T: 33 QT: 442 QTc: 467 Interpretive Statements SINUS RHYTHM WITH SINUS ARRHYTHMIA WITH SHORT OR INTERVAL MODERATE T-WAVE ABNORMALITY, CONSIDER ANTERIOR ISCHEMIA [-0.1+ mV T-WAVE IN V3/V4] Compared to ECG 09/26/2021 12:35:46 Short OR interval now present T-wave abnormality now present Possible ischemia now present Electronically Signed On 09-29-2021 21:37:30 CDT by Mavis Paige M.D. [id number]
[2021-09-29 11:42] VITALS: BP 138/74; PULSE 89; RESP 17; TEMP 36.5; O2SAT 97; BMI 27.2
--- NOTE | 2021-09-29 11:42 | W.ED.GENADLT ---
HPI - General Adult General: Chief complaint: Altered Mental Status Stated complaint: increased confusion Time Seen by Provider: 09/29/21 11:25 History of Present Illness: Patient is an 81-year-old female with history of CAD, recurrent UTI, recent hospital admission for respiratory failure, diabetes, prior CVA who was initially discharged to [facility] on 09/28/2021 after hospitalization for respiratory distress presenting to the emergency room for new onset of confusion. Per nursing staff, patient was observed to be more confused this morning. EMS was called and patient was brought to the emergency room. On arrival, patient is AAOx2, answering all my questions and following commands. Patient has no focal complaints at this time. I discussed case with [facility] tells me the patient has become more confused since discharge from the hospital and is not able to feed herself which is her baseline. Patient was admitted to the hospital on 09/23/2021 for concerns of left-sided pneumonia and left-sided pleural effusion. Patient stayed in the hospital for 5 days for diuresis and hypokalemia repletion. Patient was then discharged to [facility] yesterday. Onset:2 days ago Duration:2 days Location:[facility] Severity:moderate Associated symptoms: Deny chest pain, dyspnea, nausea, rash, palpitations or vomiting Review of Systems Const: Denies: fever(s) or chills Eyes: Denies: change in vision ENMT: Denies: mouth pain Card: Denies: chest pain or palpitations Resp: Denies: dyspnea or non-productive cough GI: Denies: abdominal pain, nausea, vomiting or diarrhea : Denies: dysuria Musc: Denies: extremity pain Skin/Breast: Denies: rash or new lesions Neuro: Reports: other (+confusion); Denies: weakness in extremities Psych: Reports: other (Normal mood) Edu/Lymph: Denies: easy bruising PFSH ED PFSH: Medical History CAD in [place] artery Chronic back pain Chronic cystitis Cystitis cystica GERD (gastroesophageal reflux disease) History of CVA (cerebrovascular accident) History of diabetes mellitus Osteoarthritis Peripheral artery disease Polyneuropathy Post herpetic neuralgia Retained ureteral stent Urolithiasis Surgical History H/O bladder repair surgery H/O: hysterectomy Hip fracture History of cataract surgery History of cholecystectomy S/P tonsillectomy Family History Other Kidney malignancy Social History Smoking and tobacco status: never smoked Alcohol intake: never Adopted: No Caregiver/support person: No Lives independently: No Housing: Assisted Marital status: Current occupational status: retired History of recent travel: No Current gender identity: Female Physical Exam Const: COMMON NORMALS: alert HENMT: COMMON NORMALS: atraumatic HEAD & SCALP: atraumatic MOUTH: moist mucous membranes not abnormal Eye: COMMON NORMALS: EOMs intact bilaterally and conjunctivae normal CONJUNCTIVA: Yes conjunctivae normal Neck/C-Spine: COMMON NORMALS: full ROM and supple Resp: COMMON NORMALS: normal respiratory effort and clear to auscultation bilaterally AUSCULTATION: clear to auscultation bilaterally Cardio: COMMON NORMALS: regular rate RATE: regular rate GI: COMMON NORMALS: Soft to palpation and non-tender PALPATION: Yes Soft to palpation OTHER: No focal TTP. NO guarding rebound, guarding, rigidity. No CVA tenderness to percussion. Neg Ahn/Neg McBurney's point tenderness, no suprabupic tenderness to palpation. Extremity: COMMON NORMALS: full ROM Neuro: SENSORIUM/ORIENTATION: Yes alert MOTOR EXAM: No Abnormal motor strength present and Other motor observations present (no focal motor deficits) OTHER: AAOx2 (self and location), cranial nerves II through XII grossly intact, patient is move following commands moving all extremities, strength 5/5 grossly in all limbs. Psych: COMMON NORMALS: speech normal SPEECH: Yes normal speech MOOD & AFFECT: Yes euthymic mood Course Vital Signs: Vital signs: Vital Signs Temperature 98.1 F 10/04/21 11:15 Pulse Rate 86 10/04/21 11:15 Respiratory Rate 15 10/04/21 11:15 Blood Pressure 135/64 10/04/21 11:15 Pulse Oximetry 94 10/04/21 11:15 MDM - General Adult Medical Decision Making 81-year-old female with history of baseline dementia, recent hospital administration for respiratory distress, diabetes, prior CVA, CAD presenting to the emergency for new onset of confusion since discharge from the hospital x2 days. On physical exam, patient is hemodynamically stable. Lungs appear to be clear bilaterally. Patient is AAO x2, otherwise neuro exam is grossly intact. EKG showed new Q waves in the anterior leads V1-V3 with T wave inversions in V1-V3. EKG DOES NOT MEET STEMI CRITERIA. 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 Findings is new since 09/26/2021. Patient is noted to have a troponin of 120. It is likely the patient has had a cardiac event between previous hospitalization and today. S/p ASA and lovenox. UA showed nitrate positive, 4+ bacteria, 15-15 WBCs per high-power field. Will treat empirically for with antibiotics given new onset of altered mental status. X-ray chest showed improving left-sided pleural effusion/infiltrate. Disposition: admission Lab Data : 10/03/21 03:45 10/03/21 03:[address] 09/29/21 11:25 IMPRESSION: 1. No acute intracranial hemorrhage or edema. Quality is limited by motion artifact and beam hardening artifact. 2. Atrophy and mild ventriculomegaly. No change since 07/22/2021. 3. RIGHT maxillary sinus opacification, stable. Chest CTA 09/29/21 15:57 IMPRESSION: 1. Negative for pulmonary embolism. 2. Large left pleural effusion. Thoracentesis Ultrasound 10/01/21 09:00 IMPRESSION: Uncomplicated ultrasound-guided LEFT thoracentesis with removal of 100 cc bloody pleural fluid. Head MRI 10/02/21 12:09 IMPRESSION: Limited FAST imaging was performed due to patient confusion 1. No evidence of restricted diffusion to suggest acute ischemia. 2. Moderate small vessel changes moderate parenchymal volume loss. 3. Moderate ventriculomegaly is unchanged since 2019. This can be seen with normal pressure hydrocephalus in the appropriate clinical setting. 4. No hemosiderin on susceptibly weighted images. 5. Moderate to advanced symmetric atrophy temporal lobes and hippocampal formations. 6. RIGHT maxillary sinusitis. Chest X-Ray 10/03/21 07:59 IMPRESSION: 1. Small residual LEFT pleural effusion without increase in size since the postthoracentesis radiograph of 10/01/2021. 2. Cardiomegaly. 3. No pneumothorax. Laboratory Results WBC 6.4 10^3/uL (4.0-10.0) 09/29/21 12:30 RBC 4.39 10^6/uL (4.1-5.3) 09/29/21 12:30 Hgb 14.4 g/dL (11.5-15.3) 09/29/21 12:30 Hct 43.4 % (37.0-47.0) 09/29/21 12:30 MCV 98.9 fl (81-99) 09/29/21 12:30 MCH 32.8 pg (28.0-34.0) 09/29/21 12:30 MCHC 33.2 g/dL (30.0-36.0) 09/29/21 12:30 RDW 14.6 % (12.1-15.1) 09/29/21 12:30 Plt Count 88 10^3/cmm (130-400) L 09/29/21 12:30 MPV 10.6 fL (7.4-10.4) H 09/29/21 12:30 Neut % (Auto) 72.7 % 09/29/21 12:30 Lymph % (Auto) 14.9 % 09/29/21 12:30 [place] % (Auto) 9.9 % 09/29/21 12:30 Eos % (Auto) 2.0 % 09/29/21 12:30 Baso % (Auto) 0.2 % 09/29/21 12:30 Neut # (Auto) 4.63 10^3/uL (1.8-7.7) 09/29/21 12:30 Lymph # (Auto) 1.0 10^3/uL (0.8-4.8) 09/29/21 12:30 [place] # (Auto) 0.6 10^3/uL (0.2-0.9) 09/29/21 12:30 Eos # (Auto) 0.1 10^3/uL (0.0-0.8) 09/29/21 12:30 Baso # (Auto) 0.0 10^3/uL (0.0-0.1) 09/29/21 12:30 Nucleated RBC % (auto) 0 % 09/29/21 12:30 Nucleated RBCs # 0.0 /100WBC 09/29/21 12:30 Specimen Type Arterial 09/29/21 12:20 Sample Site Radial, left 09/29/21 12:20 ABG pH 7.51 (7.35-7.45) H 09/29/21 12:20 ABG pCO2 33.5 mmHg (35-45) L 09/29/21 12:20 ABG pO2 67.0 mmHg (80.0-100.0) L 09/29/21 12:20 ABG HCO3 26.8 mmol/L (22-26) H 09/29/21 12:20 ABG O2 Saturation 95.7 09/29/21 12:20 ABG Base Excess 4.1 mmol/L (-2.0-2.0) H 09/29/21 12:20 Kunal Test Pos 09/29/21 12:20 A-a O2 Gradient 5.2 mmHg (5-10) 09/29/21 12:20 Hematocrit 40.6 % (37-47) 09/29/21 12:20 Hgb O2 Saturation 93.5 % (95-100) L 09/29/21 12:20 Carboxyhemoglobin 1.4 %THgb (0.4-20.1) 09/29/21 12:20 Methemoglobin 0.9 % (0.4-1.5) 09/29/21 12:20 Total Hemoglobin 13.2 g/dL (12-16) 09/29/21 12:20 Sodium 142.0 mmol/L (131-143) 09/29/21 12:20 Potassium 3.2 mmol/L (3.5-5.0) L 09/29/21 12:20 Glucose 100.0 mg/dL (70-115) 09/29/21 12:20 Ionized Calcium 1.1 mmol/L (1.1-1.4) 09/29/21 12:20 O2 Delivery Device Room air 09/29/21 12:20 FiO2 21.0 % 09/29/21 12:20 Market Analysis Director ID Ed 09/29/21 12:20 Sodium 142 mmol/L (136-145) 09/29/21 12:30 Potassium 3.6 mmol/L (3.5-5.1) 09/29/21 12:30 Chloride 103 mmol/L (98-107) 09/29/21 12:30 Carbon Dioxide 26 mmol/L (22-29) 09/29/21 12:30 Anion Gap 16.6 (5-19) 09/29/21 12:30 BUN 18 mg/dL (8-23) 09/29/21 12:30 Creatinine 0.6 mg/dL (0.5-0.9) 09/29/21 12:30 GFR Calculation Not Reportable 09/29/21 12:30 Glucose 100 mg/dL (65-115) 09/29/21 12:30 Calculated Osmolality 296 mOsm/kg (285-295) H 09/29/21 12:30 Calcium 8.8 mg/dL (8.5-10.5) 09/29/21 12:30 Total Bilirubin 1.3 mg/dL (0.15-1.2) H 09/29/21 12:30 AST 39 U/L (0-32) H 09/29/21 12:30 ALT 20 U/L (0-33) 09/29/21 12:30 Alkaline Phosphatase 115 IU/L (35-105) H 09/29/21 12:30 Ammonia 15 umol/L (11-51) 09/29/21 12:30 Troponin T Baseline 124 ng/L (0-10) H* 09/29/21 12:30 Total Protein 6.9 g/dL (6.6-8.7) 09/29/21 12:30 Albumin 3.4 g/dL (3.5-5.2) L 09/29/21 12:30 Globulin 3.5 g/dL (1.3-4.6) 09/29/21 12:30 Lipase 25 U/L (13-60) 09/29/21 12:30 TSH 2.04 uIU/mL (0.27-4.20) 09/29/21 12:30 Free T4 1.59 ng/dL (0.82-1.77) 09/29/21 12:30 Urine Color Yellow (Yellow) 09/29/21 12:45 Urine Appearance Sl hazy (CLEAR) 09/29/21 12:45 Urine pH 6 (5-7) 09/29/21 12:45 Ur Specific [place] 1.015 (1.005-1.030) 09/29/21 12:45 Urine Protein Neg (Negative) 09/29/21 12:45 Urine Glucose (UA) Norm (Normal) 09/29/21 12:45 Urine Ketones 1+ (Negative) H 09/29/21 12:45 Urine Blood Neg (Negative) 09/29/21 12:45 Urine Nitrate Positive (Negative) H 09/29/21 12:45 Urine Bilirubin Neg (Negative) 09/29/21 12:45 Urine Urobilinogen Norm mg/dL (Negative) 09/29/21 12:45 Ur Leukocyte Esterase Negative (Negative) 09/29/21 12:45 Urine RBC None /hpf (0-2) 09/29/21 12:45 Urine WBC 10-15 /hpf (0-5) H 09/29/21 12:45 Ur Squamous Epith Cells 0-4 /hpf (0-5) H 09/29/21 12:45 Amorphous Sediment Not Reportable 09/29/21 12:45 Urine Bacteria 4+ /hpf (NONE) H 09/29/21 12:45 Salicylates < 0.3 mg/dL (3-10) L 09/29/21 12:30 Acetaminophen < 5.0 ug/mL (10-30) L 09/29/21 12:30 Imaging Data Other Imaging: Radiologist's impression: [address] [address] XRay Report Signed Patient: Daksha Machuca Unit #: [id number] : 1940 Age/Sex: 81 / F ADM Date: 09/29/21 Loc: ER Room/Bed: Attending Dr: Ordering Provider/Ordering MD: Noel Walton MD Date of Service: 09/29/21 Procedure(s): XR chest 1V portable [id number] Accession Number(s): [id number] Report Number: [id number] WS: [id number] XR chest 1V portable [id number] REASON FOR EXAM: ams FINDINGS: There is increased opacity in the left lower hemithorax which does not appear as severe as on the previous examination of 09/27/2021. This may be due to difference in positioning or interval thoracentesis. Correlation with recent history to be made. Otherwise, there is no significant interval change or new finding is noted. XR/XR chest 1V portable [id number] IMPRESSION: Interval change in the appearance of the left hemithorax as above. ? Dictated By: Jakob Patel Jr, MD Signed By: Jakob Patel Jr, MD Signed Date/Time: 09/29/21 1144 DD/ [address] [address] [address] Scan Report Signed Patient: Daksha Machuca Unit #: [id number] : 1940 Age/Sex: 81 / F ADM Date: 09/29/21 Loc: ER Room/Bed: Attending Dr: Ordering Provider/Ordering MD: Noel Walton MD Date of Service: 09/29/21 Procedure(s): CT head wo con* [id number] Accession Number(s): [id number] Report Number: [id number] WS: [id number] CT HEAD NONCONTRAST HISTORY: ams TECHNIQUE: Contiguous axial imaging performed through the brain in 2.5 mm imaging. Bone and soft tissue windows. Sagittal and coronal reformats reviewed.? All CT scans at [facility] use at least one of these dose optimization techniques: automated exposure control; mA and/or kV adjustment per patient size (includes targeted exams where dose is matched to clinical indication); or iterative reconstruction. DLP: 1776.61 mGy.cm COMPARISON: 07/22/2021 Quality is significantly limited by motion and beam hardening artifact. No acute intracranial hemorrhage, midline shift or mass effect. Atrophy and small vessel ischemic disease.? Mild small vessel ischemic disease. Ventricles:? Normal size with no hydrocephalus. No inferior displacement of cerebellar tonsils. Paranasal sinuses: Near complete opacification RIGHT maxillary sinus. Mastoid air cells: Well pneumatized. Calvarium and scalp: Skull is intact with no soft tissue edema or swelling. CT/CT head wo con* [id number] IMPRESSION: ? 1.? No acute intracranial hemorrhage or edema. Quality is limited by motion artifact and beam hardening artifact. 2.? Atrophy and mild ventriculomegaly. No change since 07/22/2021. 3.? RIGHT maxillary sinus opacification, stable. ? Dictated By: Suri Rose DO Signed By: Suri Rose DO Signed Date/Time: 09/29/21 1332 DD/ 1324 Discharge Plan Discharge Patient Disposition: Home Clinical Impression: Confusion, Non-ST elevation MO (NSTEMI), Altered mental status, Acute UTI Condition: Stable Discharge Orders: Discharge Order (Routine); Ordered 10/04/21 Ordered By: Kunal Roberts Discharge Diet: Soft Mechanical Coding Level of Care Code ED External Auditor for Chg Fwd Exam Comprehensive
[2021-09-29 12:00] VITALS: BP 184/84; PULSE 84; RESP 16; O2SAT 94
[2021-09-29 12:30] LABS: ABG PCO2 33.5 mmHg (35-45); ABG PH Result 7.51 (7.35-7.45); Alveolar-Arterial Oxygen Gradi 5.2 mmHg (5-10); Arterial Blood Gas Hematocrit 40.6 % (37-47); Base Excess ABG 4.1 mmol/L (-2.0-2.0); Blood Gas Allen Test Pos; Blood Gas Operator Identificat ED; Blood Gas Sample Site Radial, left; Blood Gas Sample Type Arterial; Carboxyhemoglobin 1.4 %THgb (0.4-20.1); HCO3 ABG 26.8 mmol/L (22-26); HGB O2 Sat 93.5 % (95-100); Ionized Calcium Level - ABG 1.1 mmol/L (1.1-1.4); Methemoglobin 0.9 % (0.4-1.5); Oxygen Device ROOM AIR; Oxygen Saturation ABG 95.7; Potassium Level - ABG 3.2 mmol/L (3.5-5.0); Total Hemoglobin 13.2 g/dL (12-16)
[2021-09-29 12:43] LABS: Basophils % 0.2 %; Eosinophils # 0.1 10^3/uL (0.0-0.8); Hematocrit 43.4 % (37.0-47.0); Hemoglobin 14.4 g/dL (11.5-15.3); Lymphocytes % 14.9 %; Mean Corpuscular HGB Conc 33.2 g/dL (30.0-36.0); Mean Corpuscular Hemoglobin 32.8 pg (28.0-34.0); Mean Corpuscular Volume 98.9 fl (81-99); Mean Platelet Volume 10.6 fL (7.4-10.4); Monocytes # 0.6 10^3/uL (0.2-0.9); Monocytes % 9.9 %; Neutrophils # 4.63 10^3/uL (1.8-7.7); Neutrophils % 72.7 %; Nucleated Red Blood Cells % 0 %; Platelet Count 88 10^3/cmm (130-400); Red Blood Count 4.39 10^6/uL (4.1-5.3); Red Cell Distribution Width 14.6 % (12.1-15.1); White Blood Count 6.4 10^3/uL (4.0-10.0)
[2021-09-29] MEDS: sodium chloride 0.9% 500 ML IV (12:52)
[2021-09-29 13:06] LABS: Ammonia 15 umol/L (11-51)
[2021-09-29 13:07] LABS: Troponin(5th) Baseline 124 ng/L (0-10)
[2021-09-29 13:13] LABS: Alanine Aminotransferase 20 U/L (0-33); Albumin Level 3.4 g/dL (3.5-5.2); Alkaline Phosphatase 115 IU/L (35-105); Blood Urea Nitrogen 18 mg/dL (8-23); Calcium 8.8 mg/dL (8.5-10.5); Carbon Dioxide 26 mmol/L (22-29); Chloride 103 mmol/L (98-107); Free T4 Free Thyroxine 1.59 ng/dL (0.82-1.77); Globulin 3.5 g/dL (1.3-4.6); Glucose 100 mg/dL (65-115); Lipase 25 U/L (13-60); Osmolality Calculated 296 mOsm/kg (285-295); Sodium 142 mmol/L (136-145); Thyroid Stimulating Hormone 2.04 uIU/mL (0.27-4.20); Total Bilirubin 1.3 mg/dL (0.15-1.2); Total Protein 6.9 g/dL (6.6-8.7)
[2021-09-29 13:14] LABS: Acetaminophen < 5.0 ug/mL (10-30); Salicylate < 0.3 mg/dL (3-10)
[2021-09-29 13:15] LABS: Anion Gap 16.6 (5-19); Potassium 3.6 mmol/L (3.5-5.1)
[2021-09-29 13:16] LABS: Aspartate Amino Transferase 39 U/L (0-32)
[2021-09-29 13:22] LABS: Slide Review Slide Review Perform
[2021-09-29 13:24] LABS: Add Urine Microscopic? YES; Bilirubin Urine Neg (Negative); Blood Urine Neg (Negative); Glucose Urine UA Norm (Normal); Ketones Urine 1+ (Negative); Leukocyte Esterase Urine Negative (Negative); Nitrate Urine Positive (Negative); Protein Urine Neg (Negative); Specific Gravity, Urine 1.015 (1.005-1.030); Squamous Epithelial Cell Urine 0-4 /hpf (0-5); Urine Appearance SL Hazy (CLEAR); Urine Color Yellow (Yellow); Urobilinogen Urine Norm (Negative); pH Urine 6 (5-7)
[2021-09-29 13:25] LABS: Add Urine Culture? Yes; Bacteria Urine 4+ /hpf
--- NOTE | 2021-09-29 13:26 | ECG_ITS ---
[facility] Test Date: 2021-09-29 Pat Name: Daksha Machuca Department: Room: Gender: Female Record Maker: : 1940 Requested By: Noel Walton Order Number: [id number] Magalys MD: Mavis Paige M.D. Measurements Intervals [place] Rate: 69 P: -1 VA: 111 QRS: 64 QRSD: 97 T: 44 QT: 411 QTc: 441 Interpretive Statements SINUS RHYTHM WITH SHORT VA INTERVAL MODERATE T-WAVE ABNORMALITY, CONSIDER ANTERIOR ISCHEMIA [-0.1+ mV T-WAVE IN V3/V4] Compared to ECG 09/29/2021 12:17:23 Sinus arrhythmia no longer present T-wave abnormality still present Possible ischemia still present Electronically Signed On 09-29-2021 21:42:06 CDT by Mavis Paige M.D. [id number]
[2021-09-29] MEDS: enoxaparin 80 mg/0.8 mL Syringe 70 MG SUBCUT (13:51)
[2021-09-29] MEDS: aspirin 325 mg Tablet PO (13:51)
[2021-09-29] MEDS: cefTRIAXone 1,000 MG in sodium chloride 0.9% (plus) 50 ML 100 MG IV (13:51)
--- NOTE | 2021-09-29 14:28 | PC.PHAR ---
pt is from [facility] [phone]-joseph nurse from [facility] states the pt had no medications today
[2021-09-29 15:12] LABS: Troponin 5 2HR 113.2 ng/L (0-10); Troponin 5 2HR Delta -10.8 ABS# (0-10)
--- NOTE | 2021-09-29 15:57 | CTR_ITS ---
PROCEDURE INFORMATION: Exam: CTA Chest With Contrast Exam date and time: 09/29/2021 6:25 PM Age: 81 years old Clinical indication: Condition or disease; Other: Shortness of breath; Additional info: AMS, shortness of breath TECHNIQUE: Imaging protocol: Computed tomographic angiography of the chest with contrast. 3D rendering (Not supervised by radiologist): MIP and/or 3D reconstructed images were created by the technologist. Radiation optimization: All CT scans at this facility use at least one of these dose optimization techniques: automated exposure control; mA and/or kV adjustment per patient size (includes targeted exams where dose is matched to clinical indication); or iterative reconstruction. Contrast material: OMNIPAQUE 300; Contrast volume: 62 ml; Contrast route: INTRAVENOUS (IV); COMPARISON: CR XR chest 1V portable [id number] 09/29/2021 11:31 AM RADIATION DOSE METRICS: Total DLP (mGy-cm): 492.08 FINDINGS: Pulmonary arteries: Normal. No pulmonary emboli. Aorta: Unremarkable. No aortic aneurysm. No aortic dissection. Lungs: Left lower lobe compressive atelectasis. Pleural spaces: Large left-sided pleural effusion. The mediastinum is deviated to the right of midline secondary to the severity of the left pleural effusion. Heart: Unremarkable. No cardiomegaly. No pericardial effusion. Mediastinal space: No mediastinal mass. No mediastinal fluid collection. Lymph nodes: Unremarkable. No enlarged lymph nodes. Gallbladder and bile ducts: Cholecystectomy. Dilated common bile duct. Stomach and bowel: Surgical clips near gastroesophageal junction. Bones/joints: Nonacute bilateral rib fractures with variable ages of bone callus. Negative for acute thoracic fracture. Unremarkable thoracic spine. Soft tissues: Unremarkable. CT/CT angio chest PE protcl [id number] IMPRESSION: 1. Negative for pulmonary embolism. 2. Large left pleural effusion.
[2021-09-29 16:09] VITALS: BP 139/76; PULSE 81; RESP 16; O2SAT 96
--- NOTE | 2021-09-29 16:15 | P.HP_ITS ---
Providers/Chief Complaint Admitting Physician: Kunal Roberts MD Primary Care Provider: Sudheer Wood MD Chief Complaint: increased confusion History of Present Illness Daksha Machuca is a 81 year old female with past medical history of hypertension diabetes hypothyroidism gout, when she had recurrent UTI follow Dr. Carney as an outpatient on chronic suppressive therapy, resident of [facility], she was discharged yesterday from the hospital after being managed for acute respiratory failure with hypoxia as well as altered mental status, during the last hospital stay she was kept on IV antibiotics as well as IV diuresis, Electrolyte abnormalities were corrected, at 1 point in time for left-sided pleural effusion, thoracentesis was contemplated, But it was not done, diuresis was pursued, came back today again from the intermediate with chief complaint of altered mental status, according to the intermediate the patient was not behaving in her routine state of mentation. When I examined the patient in the ER, she was oriented to self and place, she has underlying dementia, she was complaining of bilateral lower extremity pain. Patient is a very poor historian history taking is very difficult. Upon arrival in the ER she was worked up for above-mentioned complaint: Pertinent imaging studies: CT head without contrast: No acute intracranial pathology X-ray chest: Increased left lower lobe opacity. EKG: New ST-T wave changes in: Lead V1 to V3 as compared to prior EKGs Pertinent labs: WBC : 6.4 , H&H:14.4/43 , PLT : 88 Serum sodium:142 , serum potassium 3.6, BUN / serum creatinine :18/0.6 , Total bilirubin 1.3, AST 39, ALT 20,ALP: 115 , Troponin trend: 124,113, TSH: 2.04, free T4 1.59 Urinalysis: Positive urine nitrite, urine WBC 10-15/HPF, urine bacteria 4+ Review of Systems General: Reports: 10 or more systems reviewed and unremarkable except in HPI and below Narrative: 68-year-old currently not in acute distress being admitted for chest pain evaluation Const: Denies: fever(s), chills, body aches, change in appetite or diaphoresis Resp: Denies: dyspnea, productive cough, wheezing or pain on inspiration GI: Denies: abdominal pain Musc: Reports: extremity pain Medications/Allergies Home Medications Medication Instructions Recorded Confirmed Last Taken Type bisacodyl 10 mg rectal suppository 10 mg GA DAILY PRN 07/14/19 09/29/21 Unknown History carvedilol 6.25 mg tablet 6.25 mg PO BID@08/30/19 09/29/21 Unknown History polyethylene glycol 3350 17 17 gm PO .EVERY 2 DAYS 08/30/19 09/29/21 09/22/21 History gram/dose oral powder (Miralax) alprazolam 0.25 mg tablet 0.25 mg PO BID@05/14/20 09/29/21 Unknown History hydrocodone 5 mg-acetaminophen 325 1 tab PO Q4H PRN 11/19/20 09/29/21 Unknown History mg tablet fluticasone propionate 50 1 spray INTRANASAL BID@01/09/21 09/29/21 Unknown History mcg/actuation nasal spray,suspension magnesium hydroxide 400 mg/5 mL 30 ml PO Q24H PRN 01/09/21 09/29/21 Unknown History oral suspension (Milk of Magnesia) allopurinol 100 mg tablet 200 mg PO DAILY@02/11/21 09/29/21 Unknown History nitrofurantoin 100 mg PO BID #60 cap 07/25/21 09/29/21 Unknown Rx monohydrate/macrocrystals 100 mg capsule (Macrobid) fexofenadine-pseudoephedrine ER 1 tab PO DAILY@08/22/21 09/29/21 Unknown History 180 mg-240 mg tablet,ext.release 24 hr (Nichole-D 24 Hour) furosemide 20 mg tablet (Lasix) 20 mg PO DAILY@08 tab 08/22/21 09/29/21 Unknown History oxycodone myristate 18 mg capsule 18 mg PO BID@08/22/21 09/29/21 Unknown History sprinkle extended release 12hr(DON'T CRUSH) (Xtampza ER) sertraline 25 mg tablet 25 mg PO DAILY@08/22/21 09/29/21 Unknown History albuterol sulfate 2.5 mg INHALATION Q4H PRN 09/24/21 09/29/21 Unknown History cyclobenzaprine 5 mg tablet 5 mg PO Q8H PRN 09/24/21 09/29/21 Unknown History gabapentin 600 mg tablet 600 mg PO TID@0700,1430,199909/24/21 09/29/21 Unknown History levothyroxine 25 mcg tablet 25 mcg PO DAILY@09/24/21 09/29/21 Unknown History multivitamin 1 tab PO DAILY@09/24/21 09/29/21 Unknown History ondansetron HCl 4 mg tablet 4 mg PO Q4H PRN 09/24/21 09/29/21 Unknown History pantoprazole 40 mg tablet,delayed 40 mg PO BID 09/24/21 09/29/21 Unknown History release sennosides 8.6 mg-docusate sodium 2 tab PO BID@,09/24/21 09/29/21 Unknown History 50 mg tablet (Stool Softener-Laxative) sodium phosphates 19 gram-7 118 ml GA DAILY PRN 09/24/21 09/29/21 Unknown History gram/118 mL enema (Zpkfg-[id number]-Gwp Enema) tobramycin 0.3 %-dexamethasone 0.1 1 drp OPHTHALMIC (EYE) BID@09/24/21 09/29/21 Unknown History % eye drops,suspension lisinopril 40 mg tablet 40 mg PO DAILY #30 tab 09/28/21 09/29/21 Unknown Rx solifenacin 5 mg tablet (Vesicare) 5 mg PO DAILY@09/29/21 09/29/21 Unknown History Allergies Allergy/AdvReac Type Severity Reaction Status Date / Time amoxicillin Allergy Unknown Verified 09/23/21 17:52 cefepime Allergy Unknown Verified 09/23/21 17:52 ciprofloxacin [From Cipro] Allergy Unknown Verified 09/23/21 17:52 codeine Allergy Unknown Verified 09/23/21 17:52 Influenza Virus Vaccines Allergy Unknown Verified 09/23/21 17:52 iodine Allergy Unknown Verified 09/23/21 17:52 Quinolones Allergy Unknown Verified 09/23/21 17:52 Sulfa (Sulfonamide Allergy Unknown Verified 09/23/21 17:52 Antibiotics) Sulfonylureas Allergy Unknown Verified 09/23/21 17:52 PFSH Acute PFSH: Medical History CAD in [place] artery Chronic back pain Chronic cystitis Cystitis cystica GERD (gastroesophageal reflux disease) History of CVA (cerebrovascular accident) History of diabetes mellitus Osteoarthritis Peripheral artery disease Polyneuropathy Post herpetic neuralgia Retained ureteral stent Urolithiasis Surgical History H/O bladder repair surgery H/O: hysterectomy Hip fracture History of cataract surgery History of cholecystectomy S/P tonsillectomy Family History Other Kidney malignancy Social History Smoking and tobacco status: never smoked Alcohol intake: never Adopted: No Caregiver/support person: No Lives independently: No Housing: Longterm Marital status: Current occupational status: retired History of recent travel: No Current gender identity: Female Vitals/I&O/Wt Last Vital Signs Temp 97.7 F 09/29/21 11:42 Pulse 81 09/29/21 16:09 Resp 16 09/29/21 16:09 BP 139/76 09/29/21 16:09 Pulse Ox 96 09/29/21 16:09 09/29/21 09/29/21 09/29/21 06:59 14:59 22:59 Intake Total 550 / 550 Balance 550 / 550 Weight last 48 hrs Weight 67.585 kg Physical Exam Narrative: Alert awake, oriented to place and person HENMT: COMMON NORMALS: normocephalic and atraumatic HEAD & SCALP: normoc ephalic and atraumatic Chest: COMMONS NORMALS: normal inspection of the chest and normal palpation of entire chest wall CHEST: Yes Symmetrical chest wall rise Resp: COMMON NORMALS: normal respiratory effort, No retractions, No use of accessory muscles and clear to auscultation bilaterally EFFORT & INSPECTION: Yes symmetric chest movement AUSCULTATION: clear to auscultation bilaterally Cardio: COMMON NORMALS: regular rate, regular rhythm, S1 normal heart sound present, S2 normal heart sound present, No gallops present (Cardio), No murmurs present (Cardio), No rub (Cardio) and Peripheral pulses 2+ throughout RATE: regular rate RHYTHM: regular rhythm HEART SOUNDS: S1 normal heart sound present and S2 normal heart sound present PERIPHERAL PULSES: Peripheral pulses 2+ throughout GI: COMMON NORMALS: Normal to inspection, nondistended, normoactive bowel sounds present, Soft to palpation, non-tender, No hepatosplenomegaly present and no masses AUSCULTATION: Yes normoactive bowel sounds PALPATION: Yes Soft to palpation and Yes No hepatosplenomegaly present RECTAL EXAM: deferred Extremity: COMMON NORMALS: no clubbing, cyanosis or edema and no pedal edema Data : 09/29/21 12:30 09/29/21 12:30 A&P Assessment and plan (1) Non-ST elevation [place] (NSTEMI): Status: Acute (2) Altered mental status: Status: Acute (3) Acute UTI: Status: Acute (4) Hypertension: Status: Acute (5) Hypothyroidism: Status: Acute (6) Gout: Status: Acute (7) Diabetes: Status: Acute (8) Thrombocytopenia: Status: Acute Plan Daksha Machuca is a 81 year old female with past medical history of hypertension diabetes hypothyroidism gout, when she had recurrent UTI was brought in with chief complaint of altered mental status. Assessment: NSTEMI: Currently patient is denying any chest pain, EKG: New ST-T wave changes in: Lead V1 to V3 as compared to prior EKGs Troponin trend: 124,113 Recent 2D echo done: Normal left ventricular cavity size and systolic function. Left ventricular ejection fraction is estimated at 60-65 %.? No diagnostic regional wall motion abnormality.Grade I diastolic dysfunction. Follow limited 2D echo CTA chest: Currently on ACS protocol : Aspirin , statin, therapeutic Lovenox, beta-homero Telemetry monitoring #Large left pleural effusion: We will plan for ultrasound-guided thoracentesis #Altered mental status: Possibly secondary to UTI CT head without contrast no acute intracranial pathology Follow blood culture Urine culture Continue ceftriaxone for now #Hypothyroidism: TSH and free T4 is normal Continue levothyroxine #History of diabetes: SSI FSG #GOUT: Continue allopurinol #DVT prophylaxis: On Lovenox #CODE STATUS: Full code #Disposition: Back to intermediate Attestations Medical Necessity Statement*: Patient is in hospital management of NSTEMI.Anticipated length of stay greater than 2 midnights. Time Spent in Patient Care: Greater than 35 minutes (>than 50% of time spent in counselling and/or direct pt care on unit) . 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
[2021-09-29 16:23] VITALS: BMI 27.2
[2021-09-29 17:05] VITALS: PULSE 67; O2SAT 95
--- NOTE | 2021-09-29 17:26 | ECG_ITS ---
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 Measurements Intervals [place] Rate: 64 P: 6 WA: 132 QRS: 60 QRSD: 96 T: 38 QT: 426 QTc: 441 Interpretive Statements SINUS RHYTHM MODERATE T-WAVE ABNORMALITY, CONSIDER ANTERIOR ISCHEMIA [-0.1+ mV T-WAVE IN V3/V4] Compared to ECG 09/29/2021 14:41:09 Short WA interval no longer present T-wave abnormality still present Possible ischemia still present Electronically Signed On 09-29-2021 21:47:46 CDT by Mavis Paige M.D. [id number]
[2021-09-29] MEDS: iohexol 300 mg/mL 100 mL Btl IV (18:33)
[2021-09-29 19:33] VITALS: BP 193/84; PULSE 66; RESP 17; TEMP 36.4; O2SAT 96
[2021-09-29] MEDS: atorvastatin 40 mg Tablet PO (20:13)
[2021-09-29 21:27] LABS: Troponin 5 6HR 138.3 ng/L (0-10); Troponin 5 6HR Delta 14.3 ng/L (0-12)
[2021-09-30] VITALS (8 sets, daily range): BP systolic 123–201; BP diastolic 65–76; PULSE 62–99; RESP 13–18; TEMP 36.3–36.8; O2SAT 92–99
[2021-09-30 08:10] LABS: Hematocrit 44.3 % (37.0-47.0); Hemoglobin 14.8 g/dL (11.5-15.3); Lymphocytes % 14.6 %; Mean Corpuscular HGB Conc 33.4 g/dL (30.0-36.0); Mean Corpuscular Hemoglobin 32.6 pg (28.0-34.0); Mean Corpuscular Volume 97.6 fl (81-99); Mean Platelet Volume 10.7 fL (7.4-10.4); Monocytes # 0.6 10^3/uL (0.2-0.9); Monocytes % 8.8 %; Neutrophils # 4.99 10^3/uL (1.8-7.7); Neutrophils % 76.1 %; Nucleated Red Blood Cells % 0 %; Platelet Count 88 10^3/cmm (130-400); Red Blood Count 4.54 10^6/uL (4.1-5.3); Red Cell Distribution Width 14.4 % (12.1-15.1); White Blood Count 6.6 10^3/uL (4.0-10.0)
--- NOTE | 2021-09-30 08:23 | USCV_ITS ---
Daksha Machuca Age: 81 Gender: F : 1940 Exam Date: 09/30/2021 08:59 Ordering Phys: Kunal Roberts MD Technologist: LESLIE Exam Location: [facility] [place] Indication: Non-ST elevation NM, Assess LV function BP: 196 / 65 HR: 68 Rhythm: Sinus Technical Quality: Adequate MEASUREMENTS (Male / Female) Normal Values 2D ECHO LVOT Diameter 2.0 cm LV Ejection Fraction MOD 2C 69.3 % LV Ejection Fraction 2C AL 70.8 % LA Diameter 2.8 cm LA Width 2.9 cm LA Height 3.9 cm RA Width 3.1 cm RA Height 3.4 cm Aorta at Sinotubular Diameter 2.6 cm DOPPLER Right Atrial Pressure 8.0 mmHg FINDINGS Left Ventricle Normal left ventricular cavity size. Normal left ventricular systolic function. Left ventricular ejection fraction is estimated at 60 %. There is possibly mild hypokinesis of basal to mid anteroseptal, apical septal and apical inferior diaz. Right Ventricle Normal right ventricle size and systolic function. Right Atrium Normal right atrial size. Left Atrium Left atrium not well visualized. Probably mild increase left atrial size Mitral Valve Structurally normal mitral valve. Aortic Valve Aortic valve not well visualized. Tricuspid Valve Tricuspid valve not well visualized. Pulmonic Valve Pulmonic valve not well visualized. Pericardium No pericardial effusion. Aorta Aorta not well visualized. CONCLUSIONS 1. This is a technically difficult study. Ultrasound enhancing agent Optison was used per protocol. 2. Normal left ventricular cavity size and systolic function. Left ventricular ejection fraction is estimated at 60 %. There is possibly mild hypokinesis of basal to mid anteroseptal, apical septal and apical inferior diaz. 3. When compared to previous echocardiogram report dated 09/23/2021, there appears to be new regional wall motion abnormality now. Aretha Owens MD (Electronically Signed) Final Date: 30 Sep 2021 13:05 S
[2021-09-30 08:31] LABS: Alanine Aminotransferase 18 U/L (0-33); Albumin Level 3.1 g/dL (3.5-5.2); Alkaline Phosphatase 118 IU/L (35-105); Aspartate Amino Transferase 31 U/L (0-32); Blood Urea Nitrogen 20 mg/dL (8-23); Calcium 8.8 mg/dL (8.5-10.5); Carbon Dioxide 24 mmol/L (22-29); Chloride 103 mmol/L (98-107); Globulin 4.4 g/dL (1.3-4.6); Glucose 113 mg/dL (65-115); Osmolality Calculated 293 mOsm/kg (285-295); Sodium 140 mmol/L (136-145); Thyroid Stimulating Hormone 1.25 uIU/mL (0.27-4.20); Total Protein 7.5 g/dL (6.6-8.7)
[2021-09-30 08:42] LABS: INR 1.27 (0.8-1.2)
[2021-09-30] MEDS: perflutren protein-a microsphr 0.22 mg/mL SDV 3 mL IV (09:20)
[2021-09-30 09:23] LABS: NT Pro B Type Natriuretic Pept 5352 pg/mL (0-450)
[2021-09-30] MEDS: carvedilol 6.25 mg Tablet PO (09:58)
[2021-09-30] MEDS: aspirin 81 mg EC Tablet PO (09:58)
[2021-09-30] MEDS: amlodipine 10 mg Tablet PO (09:58)
[2021-09-30] MEDS: lidocaine 1% 5 ML in potassium chloride premix 100 ML 25 ML IV (12:11)
[2021-09-30] MEDS: enoxaparin 80 mg/0.8 mL Syringe 70 MG SUBCUT (12:12)
[2021-09-30 14:04] LABS: Lactate Dehydrogenase 268 U/L (135-214)
--- NOTE | 2021-09-30 14:25 | PC.CHAP ---
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 cuff setter overlock visit [] Patient/Family/Request visit [] Outpatient visit [] Follow-up visit [] Physician referral [] Code/Alert X[] Routine visit [] Staff referral [] Actively dying [] Patient sleeping [] Family support [] [] Out of room [] Palliative care [] [] Receiving care in room [] Pre-surgical visit [] Trauma [] Long length of stay [] ICU visit [] Other: Relational/Emotional Strength [X] Patient feels connected with others/family/visitors/staff [] Distress [] Loneliness/isolation [] Abandonment Spirituality of Patient [X] Person of Sujatha [] Attends Zoroastrianism of their Sujatha [X] Believes in Prayer [] Reads Bible or Jew materials [] There are Spiritual issues to be addressed Machine Cloth Trimmer Interventions X] Prayer [X] Active listening [X] Non-anxious presence []X Spiritual/emotional support [] Crisis/trauma care [] Spiritual counseling [] Bereavement support [] Provided bereavement packet [] Provided Bible/devotional materials [] Provided toy/stuffed animal, coloring book to patient or family member [] Provided Communion [] Anointing/[place] [] Salvation [X] Completed spiritual assessment [] Other: Impact on Illness or Injury [] Angry [] Fearful [] Anxious [] Often cries [] Exhaustion [] Unable to work [] Unable to attend buddhism [] Unable to walk/stand [] Unable to read [] Unable to drive [] Unable to eat/drink [] Unable to sleep [] Unable to be with family [] Patient intubated [] Other: Summary Time spent with patient 10 MIN
[2021-09-30] MEDS: hyDRALAzine 50 mg Tablet 100 MG PO (14:39)
[2021-09-30] MEDS: cloNIDine 0.1 mg Tablet 0.2 MG PO (14:40)
--- NOTE | 2021-09-30 15:40 | PM.PN ---
Subjective Subjective: Patient was seen and examined this morning continue to have mild confusion.Blood pressure is also uncontrolled. Medications: Medication Review Details: Generic Name Dose Route Start Last Admin Trade Name Pablo PRN Reason Stop Dose Admin Amlodipine Besylat e 10 mg 09/30/21 09:00 09/30/21 09:58 Amlodipine 10 Mg Tablet PO 10 mg DAILY RAMO Administration Aspirin 81 mg 09/30/21 09:00 09/30/21 09:58 Aspirin 81 Mg Ec Tablet PO 81 mg DAILY RAMO Administration Atorvastatin Calci um 40 mg 09/29/21 21:00 09/29/21 20:13 Atorvastatin 40 Mg Tablet PO 40 mg BEDTIME RAMO Administration Carvedilol 6.25 mg 09/30/21 09:00 09/30/21 09:58 Carvedilol 6.25 Mg Tablet PO 6.25 mg BID@0900,2100 RAMO Administration Enoxaparin Sodium 70 mg 09/30/21 01:00 09/30/21 12:12 Enoxaparin 80 Mg /0.8 Ml Syringe SUBCUT 70 mg Q12H RAMO Administration Hydralazine HCl 100 mg 09/30/21 13:00 09/30/21 14:39 Hydralazine 50 M g Tablet PO 100 mg QID RAMO Administration Lidocaine HCl 5 ml / Potassium 105 mls @ 25 mls/ hr 09/30/21 11:30 09/30/21 12:11 Chloride IV 09/30/21 15:41 25 mls/hr ONCE ONE Administration Vitals/I&O/Wt Last Vital Signs Temp 97.5 F L 09/30/21 11:35 Pulse 76 09/30/21 11:35 Resp 13 09/30/21 11:35 BP 201/74 09/30/21 11:35 Pulse Ox 95 09/30/21 11:35 09/30/21 09/30/21 09/30/21 06:59 14:59 22:59 Intake Total 620 / 620 Balance 620 / 620 Weight last 48 hrs Weight 67.585 kg Weight 67.585 kg Physical Exam Narrative: Alert awake, oriented to place and person HENMT: COMMON NORMALS: normocephalic and atraumatic HEAD & SCALP: normocephalic and atraumatic Eye: COMMON NORMALS: no scleral icterus GENERAL EYE: appearance normal, both eyes and all related structures Chest: COMMONS NORMALS: normal inspection of the chest and normal palpation of entire chest wall CHEST: Yes Symmetrical chest wall rise Resp: COMMON NORMALS: normal respiratory effort, No retractions, No use of accessory muscles and clear to auscultation bilaterally EFFORT & INSPECTION: Yes symmetric chest movement AUSCULTATION: clear to auscultation bilaterally Cardio: COMMON NORMALS: regular rate, regular rhythm, S1 normal heart sound present, S2 normal heart sound present, No gallops present (Cardio), No murmurs present (Cardio), No rub (Cardio) and Peripheral pulses 2+ throughout RATE: regular rate RHYTHM: regular rhythm HEART SOUNDS: S1 normal heart sound present and S2 normal heart sound present PERIPHERAL PULSES: Peripheral pulses 2+ throughout GI: COMMON NORMALS: Normal to inspection, nondistended, normoactive bowel sounds present, Soft to palpation, non-tender, No hepatosplenomegaly present and no masses AUSCULTATION: Yes normoactive bowel sounds PALPATION: Yes Soft to palpation and Yes No hepatosplenomegaly present RECTAL EXAM: deferred Extremity: COMMON NORMALS: no clubbing, cyanosis or edema and no pedal edema Data : 09/30/21 07:48 09/30/21 07:48 Micro: Microbiology 09/29/21 12:45 Urine Culture - Preliminary Urine,Clean Catch Gram Negative Rods 09/30/21 07:48 Blood Culture - Preliminary Blood SPECIMEN COLLECTED 09/30/21 05:21 Blood Culture - Preliminary Blood SPECIMEN COLLECTED A&P Assessment and plan (1) Non-ST elevation [place] (NSTEMI): Status: Acute (2) Altered mental status: Status: Acute (3) Acute UTI: Status: Acute (4) Hypertension: Status: Acute (5) Hypothyroidism: Status: Acute (6) Gout: Status: Acute (7) Diabetes: Status: Acute (8) Thrombocytopenia: Status: Acute Plan Daksha Machuca is a 81 year old female with past medical history of hypertension diabetes hypothyroidism gout, when she had recurrent UTI was brought in with chief complaint of altered mental status. Assessment: NSTEMI: Currently patient is denying any chest pain, EKG: New ST-T wave changes in: Lead V1 to V3 as compared to prior EKGs Troponin trend: 124,113,138 Recent 2D echo done: Normal left ventricular cavity size and systolic function. Left ventricular ejection fraction is estimated at 60-65 %.? No diagnostic regional wall motion abnormality.Grade I diastolic dysfunction. Repeat limited 2D echo with contrast: Is a technically difficult study Normal left ventricular cavity size and systolic function. Left ventricular ejection fraction is estimated at 60 %.?There ?is possibly mild hypokinesis of basal to mid anteroseptal, apical septal and apical inferior diaz. CTA chest: No pulmonary embolism, large left pleural effusion. Currently on ACS protocol : Aspirin , statin, therapeutic Lovenox, beta-homero, Imdur. Family is currently leaning towards conservative medical management. Telemetry monitoring. #Large left pleural effusion: We will plan for ultrasound-guided thoracentesis #Altered mental status: Possibly secondary to UTI CT head without contrast no acute intracranial pathology Follow blood culture Urine culture: Gram-negative justine Continue ceftriaxone for now Hypertensive urgency: Amlodipine 10 mg p.o. daily, hydralazine 100 mg, Imdur #Hypothyroidism: TSH and free T4 is normal Continue levothyroxine #History of diabetes: SSI FSG #GOUT: Continue allopurinol #DVT prophylaxis: On Lovenox #CODE STATUS: Full code #Disposition: Back to correction Attestations Medical Necessity Statement*: Patient is still in hospital management of NSTEMI, pleural effusion, hypertensive urgency. Time Spent in Patient Care: Greater than 35 minutes (>than 50% of time spent in counselling and/or direct pt care on unit). 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
[2021-09-30] MEDS: cefTRIAXone 1,000 MG in sodium chloride 0.9% (plus) 100 ML 100 MG IV (16:32)
[2021-09-30 21:13] LABS: Glucose Point of Care 111 mg/dL (70-110)
[2021-09-30] MEDS: atorvastatin 40 mg Tablet PO (23:00)
[2021-09-30] MEDS: acetaminophen 325 mg Tablet 650 MG PO (23:00)
[2021-10-01] VITALS (7 sets, daily range): BP systolic 110–176; BP diastolic 57–76; PULSE 76–95; RESP 14–18; TEMP 36.4–37.2; O2SAT 93–99
[2021-10-01 04:58] LABS: Basophils % 0.1 %; Eosinophils # 0.2 10^3/uL (0.0-0.8); Hematocrit 44.3 % (37.0-47.0); Hemoglobin 14.7 g/dL (11.5-15.3); Lymphocytes # 1.7 10^3/uL (0.8-4.8); Lymphocytes % 17.8 %; Mean Corpuscular HGB Conc 33.2 g/dL (30.0-36.0); Mean Corpuscular Hemoglobin 32.3 pg (28.0-34.0); Mean Corpuscular Volume 97.4 fl (81-99); Mean Platelet Volume 10.1 fL (7.4-10.4); Neutrophils % 68.7 %; Nucleated Red Blood Cells % 0 %; Platelet Count 143 10^3/cmm (130-400); Red Blood Count 4.55 10^6/uL (4.1-5.3); White Blood Count 9.5 10^3/uL (4.0-10.0)
[2021-10-01 05:09] LABS: INR 1.33 (0.8-1.2)
[2021-10-01 05:26] LABS: Alanine Aminotransferase 18 U/L (0-33); Albumin Level 2.8 g/dL (3.5-5.2); Alkaline Phosphatase 108 IU/L (35-105); Blood Urea Nitrogen 19 mg/dL (8-23); Calcium 8.7 mg/dL (8.5-10.5); Carbon Dioxide 23 mmol/L (22-29); Chloride 106 mmol/L (98-107); Globulin 4.1 g/dL (1.3-4.6); Glucose 105 mg/dL (65-115); Osmolality Calculated 293 mOsm/kg (285-295); Sodium 140 mmol/L (136-145); Total Bilirubin 1.3 mg/dL (0.15-1.2); Total Protein 6.9 g/dL (6.6-8.7)
[2021-10-01 05:48] LABS: Anion Gap 14.6 (5-19); Aspartate Amino Transferase 32 U/L (0-32); Potassium 3.6 mmol/L (3.5-5.1)
[2021-10-01 06:43] LABS: Glucose Point of Care 97 mg/dL (70-110)
--- NOTE | 2021-10-01 09:00 | US_ITS ---
WS: [id number] ULTRASOUND-GUIDED THORACENTESIS CLINICAL INFORMATION: Large lt sided Pleural effusion COMPARISON: None. PROCEDURE: Informed consent: The risks, benefits, and alternatives of the procedure were discussed with the amos ent. Verbal and written consent was obtained. Timeout: A timeout was performed to confirm the correct patient, procedure, and site. Site: LEFT chest Preparation: A suitable skin site was identified. The patient was prepped and draped in usual sterile fashion. Lidocaine 1% was used for local anesthesia. Catheter: 4 Japanese One-Step catheter. Fluid Volume: 900 ml Color: Bloody serous Discarded safely. Complications: No pneumothorax on the postthoracentesis radiograph US/ thoracentesis [id number] IMPRESSION: Uncomplicated ultrasound-guided LEFT thoracentesis with removal of 100 cc blood y pleural fluid.
--- NOTE | 2021-10-01 09:25 | XR_ITS ---
WS: [id number] XR chest 1V portable [id number] REASON FOR EXAM: post left pleura FINDINGS: Presumed post left thoracentesis. Decreased in the apparent left pleural fluid volume. No left pneumothorax. Chest otherwise unchanged compared to 09/29/2021. XR/XR chest 1V portable [id number] IMPRESSION: Presumed post left thoracentesis with no complication identified.
[2021-10-01] MEDS: carvedilol 6.25 mg Tablet PO ×2 (10:10→21:18)
[2021-10-01] MEDS: aspirin 81 mg EC Tablet PO (10:10)
[2021-10-01] MEDS: hyDRALAzine 50 mg Tablet 100 MG PO (10:10)
[2021-10-01] MEDS: amlodipine 10 mg Tablet PO (10:11)
[2021-10-01 10:20] LABS: Mononuclear %, Pleural Fluid 96 %; Polynuclear Cells, Pleural % 4 %
[2021-10-01 10:48] LABS: Appearance, Pleural Fluid CLOUDY (CLEAR); Color, Pleural Fluid Red (Pale Yellow); LDH Pleural Fluid 183 U/L; Total Protein Pleural Fluid 2.8 g/dL
[2021-10-01 10:49] LABS: PATH Referal YES
--- NOTE | 2021-10-01 11:42 | PM.PN ---
Subjective Subjective: Patient was seen and examined this morning, currently she is aware of self, remembers his son name, Has continued to complain of leg pain. S/p left thoracentesis, with removal of 900 cc dark red pleural fluid. Medications: Medication Review Details: Generic Name Dose Route Start Last Admin Trade Name Pablo PRN Reason Stop Dose Admin Amlodipine Besylat e 10 mg 09/30/21 09:00 09/30/21 09:58 Amlodipine 10 Mg Tablet PO 10 mg DAILY RAMO Administration Aspirin 81 mg 09/30/21 09:00 09/30/21 09:58 Aspirin 81 Mg Ec Tablet PO 81 mg DAILY RAMO Administration Atorvastatin Calci um 40 mg 09/29/21 21:00 09/29/21 20:13 Atorvastatin 40 Mg Tablet PO 40 mg BEDTIME RAMO Administration Carvedilol 6.25 mg 09/30/21 09:00 09/30/21 09:58 Carvedilol 6.25 Mg Tablet PO 6.25 mg BID@0900,2100 RAMO Administration Enoxaparin Sodium 70 mg 09/30/21 01:00 09/30/21 12:12 Enoxaparin 80 Mg /0.8 Ml Syringe SUBCUT 70 mg Q12H RAMO Administration Hydralazine HCl 100 mg 09/30/21 13:00 09/30/21 14:39 Hydralazine 50 M g Tablet PO 100 mg QID RAMO Administration Lidocaine HCl 5 ml / Potassium 105 mls @ 25 mls/ hr 09/30/21 11:30 09/30/21 12:11 Chloride IV 09/30/21 15:41 25 mls/hr ONCE ONE Administration Vitals/I&O/Wt Last Vital Signs Temp 97.6 F 10/01/21 11:06 Pulse 90 10/01/21 11:06 Resp 17 10/01/21 11:06 BP 110/60 10/01/21 11:06 Pulse Ox 93 10/01/21 11:06 09/30/21 10/01/21 10/01/21 22:59 06:59 14:59 Intake Total 205 / 825 0 / 0 Balance 205 / 825 0 / 0 Weight last 48 hrs Weight 67.585 kg Physical Exam Narrative: Alert awake, oriented to place and person HENMT: COMMON NORMALS: normocephalic and atraumatic HEAD & SCALP: normocephalic and atraumatic Eye: COMMON NORMALS: no scleral icterus GENERAL EYE: appearance normal, both eyes and all related structures Chest: COMMONS NORMALS: normal inspection of the chest and normal palpation of entire chest wall CHEST: Yes Symmetrical chest wall rise Resp: COMMON NORMALS: normal respiratory effort, No retractions, No use of accessory muscles and clear to auscultation bilaterally EFFORT & INSPECTION: Yes symmetric chest movement AUSCULTATION: clear to auscultation bilaterally OTHER: Diminished air entry in left lung field particularly at the bases. Cardio: COMMON NORMALS: regular rate, regular rhythm, S1 normal heart sound present, S2 normal heart sound present, No gallops present (Cardio), No murmurs present (Cardio), No rub (Cardio) and Peripheral pulses 2+ throughout RATE: regular rate RHYTHM: regular rhythm HEART SOUNDS: S1 normal heart sound present and S2 normal heart sound present PERIPHERAL PULSES: Peripheral pulses 2+ throughout GI: COMMON NORMALS: Normal to inspection, nondistended, normoactive bowel sounds present, Soft to palpation, non-tender, No hepatosplenomegaly present and no masses AUSCULTATION: Yes normoactive bowel sounds PALPATION: Yes Soft to palpation and Yes No hepatosplenomegaly present RECTAL EXAM: deferred Extremity: COMMON NORMALS: no clubbing, cyanosis or edema and no pedal edema Data : 10/01/21 04:25 10/01/21 04:25 Micro: Microbiology 09/29/21 12:45 Urine Culture - Final Urine,Clean Catch Escherichia coli 09/30/21 07:48 Blood Culture - Preliminary Blood NEGATIVE TO DATE 09/30/21 05:21 Blood Culture - Preliminary Blood NEGATIVE TO DATE A&P Assessment and plan (1) Non-ST elevation LA (NSTEMI): Status: Acute (2) Altered mental status: Status: Acute (3) Acute UTI: Status: Acute (4) Hypertension: Status: Acute (5) Hypothyroidism: Status: Acute (6) Gout: Status: Acute (7) Diabetes: Status: Acute (8) Thrombocytopenia: Status: Acute Plan Daksha Machuca is a 81 year old female with past medical history of hypertension diabetes hypothyroidism gout, when she had recurrent UTI was brought in with chief complaint of altered mental status. Assessment: NSTEMI: Currently patient is denying any chest pain, EKG: New ST-T wave changes in: Lead V1 to V3 as compared to prior EKGs Troponin trend: 124,113,138 Recent 2D echo done: Normal left ventricular cavity size and systolic function. Left ventricular ejection fraction is estimated at 60-65 %.? No diagnostic regional wall motion abnormality.Grade I diastolic dysfunction. Repeat limited 2D echo with contrast: Is a technically difficult study Normal left ventricular cavity size and systolic function. Left ventricular ejection fraction is estimated at 60 %.?There ?is possibly mild hypokinesis of basal to mid anteroseptal, apical septal and apical inferior diaz. CTA chest: No pulmonary embolism, large left pleural effusion. Currently on ACS protocol : Aspirin , statin, therapeutic Lovenox, beta-homreo, Imdur. Family is currently leaning towards conservative medical management. Telemetry monitoring. #Large left pleural effusion: S/p ultrasound-guided left-sided thoracentesis with removal of 900 cc dark red pleural fluid. Pleural fluid analysis is consistent with exudative effusion, possibly secondary to pneumonia. Pleural fluid WBC:1064, Pleural fluid glucose 109 Follow pleural fluid gram stain and culture Pleural fluid cytology #Altered mental status: Possibly secondary to UTI V/S Progressive dementia CT head without contrast no acute intracranial pathology MRI head without contrast: Follow blood culture: Negative Urine culture: Gram-negative justine: E.COLI : Serum B12 Serum folic acid Serum ammonia level Procalcitonin:0.10 ABG: pH 7.51, PCO2 33, PO2 67, on room air Continue ceftriaxone for now Hypertensive urgency: Amlodipine 10 mg p.o. daily, hydralazine , Carvedilol #Chronic thrombocytopenia: Monitor platelet count for now #Hypothyroidism: TSH and free T4 is normal Continue levothyroxine #History of diabetes: SSI FSG #GOUT: Continue allopurinol #DVT prophylaxis: On Lovenox #CODE STATUS: Full code #Disposition: Back to skilled nursing Attestations Medical Necessity Statement*: Patient is in hospital for management of above defined problems. Time Spent in Patient Care: Greater than 35 minutes (>than 50% of time spent in counselling and/or direct pt care on unit). Coding Level of Care Code Acute Interior Decorator Painting for [facility] Fwd Exam Detailed Diagnoses Non-ST elevation LA (NSTEMI) I21.4 Altered mental status R41.82 Acute UTI N39.0 Hypertension I10 Hypothyroidism E03.9 Gout M10.9 Diabetes E11.9 Thrombocytopenia D69.6
[2021-10-01] MEDS: hyDRALAzine 50 mg Tablet PO ×2 (16:07→21:18)
[2021-10-01] MEDS: cefTRIAXone 1,000 MG in sodium chloride 0.9% (plus) 100 ML 100 MG IV (16:07)
--- NOTE | 2021-10-01 16:42 | PC.NURSE ---
RN educated pt's on draining, RN walked through process, as he completed, stated that he was not all the way comfortable, but the next time he will feel better about draining.
--- NOTE | 2021-10-01 19:38 | ECG_ITS ---
[facility] Test Date: 2021-10-02 Pat Name: Daksha Machuca Department: Room: 271 Gender: Female Gift Manager: Griselda Hernandez : 1940 Requested By: Aretha Owens Order Number: [id number] Magalys MD: Aretha Owens M.D. Interpretive Statements NAME OF STUDY: LEXISCAN SESTAMIBI STRESS TEST INDICATION: Elevated Troponin, NSTEMI PROCEDURE: At the baseline, the blood pressure was 100/59 mmHg with a heart rate of 68 bpm. The electrocardiogram showed normal sinus rhythm, normal axis with nonspecific T wave inversion in lead III and aVF. The Lexiscan was infused over a period of 20 seconds. A total of 0.4 milligrams of Lexiscan was infused. The stress phase was continued for a total of 5 minutes. Heart rate at the end of the stress phase was 92 beats per minute with a blood pressure of 83/57 mmHg. The EKG at the peak infusion revealed sinus rhythm with no significant ST-T wave changes. Sestamibi was injected 20 seconds after the Lexiscan infusion. Blood pressure at the end of the recovery phase was 93/58 mmHg with a heart rate of 93 beats per minute. CONCLUSION: 1. No significant EKG changes with the LexiScan infusion. 2. No LexiScan induced chest pain or cardiac arrhythmia. 3. Normal blood pressure and heart rate response. 4. Sestamibi/sestamibi perfusion scan pending; see separate report. Electronically Signed On 10-05-2021 13:31:48 CDT by Aretha Owens M.D. [id number]
[2021-10-01] MEDS: atorvastatin 40 mg Tablet PO (21:18)
[2021-10-02 04:00] VITALS: BP 124/64; PULSE 96; RESP 18; TEMP 36.6; O2SAT 95
[2021-10-02] MEDS: enoxaparin 40 mg/0.4 mL Syringe SUBCUT (06:43)
[2021-10-02 06:45] LABS: Basophils % 0.2 %; Eosinophils # 0.3 10^3/uL (0.0-0.8); Eosinophils % 2.8 %; Hematocrit 45.1 % (37.0-47.0); Hemoglobin 14.9 g/dL (11.5-15.3); Lymphocytes # 2.5 10^3/uL (0.8-4.8); Lymphocytes % 21.9 %; Mean Corpuscular Hemoglobin 32.1 pg (28.0-34.0); Mean Corpuscular Volume 97.2 fl (81-99); Mean Platelet Volume 10.1 fL (7.4-10.4); Monocytes # 1.2 10^3/uL (0.2-0.9); Monocytes % 10.6 %; Neutrophils # 7.28 10^3/uL (1.8-7.7); Neutrophils % 64.1 %; Nucleated Red Blood Cells % 0 %; Platelet Count 161 10^3/cmm (130-400); Red Blood Count 4.64 10^6/uL (4.1-5.3); Red Cell Distribution Width 15.4 % (12.1-15.1); White Blood Count 11.4 10^3/uL (4.0-10.0)
[2021-10-02 07:02] LABS: Alanine Aminotransferase 17 U/L (0-33); Albumin Level 2.8 g/dL (3.5-5.2); Alkaline Phosphatase 101 IU/L (35-105); Anion Gap 14.3 (5-19); Aspartate Amino Transferase 24 U/L (0-32); Blood Urea Nitrogen 26 mg/dL (8-23); Calcium 8.5 mg/dL (8.5-10.5); Carbon Dioxide 22 mmol/L (22-29); Chloride 107 mmol/L (98-107); Globulin 3.5 g/dL (1.3-4.6); Glucose 112 mg/dL (65-115); Osmolality Calculated 296 mOsm/kg (285-295); Potassium 3.3 mmol/L (3.5-5.1); Sodium 140 mmol/L (136-145); Total Bilirubin 1.3 mg/dL (0.15-1.2); Total Protein 6.3 g/dL (6.6-8.7)
[2021-10-02 07:03] LABS: Ammonia 25 umol/L (11-51)
[2021-10-02 07:27] LABS: Folate Level 9.5 ng/mL (4.8-37.3)
[2021-10-02 07:33] VITALS: BP 138/70; PULSE 90; RESP 18; TEMP 36.8; O2SAT 95
[2021-10-02 07:41] LABS: Vitamin B12 685 pg/mL (232-1245)
--- NOTE | 2021-10-02 09:28 | PC.SOCIAL ---
IMM update IMM updated with patient. Verbalized an understanding. Copy Pg 2 provided. Initialled, dated, timed, and placed in chart.
[2021-10-02] MEDS: carvedilol 6.25 mg Tablet PO ×2 (09:29→22:25)
[2021-10-02] MEDS: hyDRALAzine 50 mg Tablet PO (09:30)
[2021-10-02] MEDS: aspirin 81 mg EC Tablet PO (09:30)
[2021-10-02] MEDS: acetaminophen 325 mg Tablet 650 MG PO (09:30)
[2021-10-02] MEDS: amlodipine 10 mg Tablet PO (09:30)
[2021-10-02] MEDS: lidocaine 1% 5 ML in potassium chloride premix 100 ML 50 ML IV (11:14)
--- NOTE | 2021-10-02 12:09 | MR_ITS ---
WS: [id number] MRI HEAD WITHOUT CONTRAST TECHNIQUE: FAST imaging was performed due to confusion. Sagittal T1, T2 axial, T2 axial FLAIR, axial and coronal T1 images, axial susceptibility weighted imaging, axial diffusion weighted images, and co [place] T2 images were obtained. CLINICAL INFORMATION: AMS COMPARISON: CT September 29, 2021 and MRI 2011 FINDINGS: No evidence of restricted diffusion to suggest acute ischemia. Ventricular system and basal cisterns are patent. Moderate small vessel changes with moderate parenchymal volume loss. A few tiny chronic l acunar infarcts in the cerebellum. Small vessel changes in the maribell. Normal vascular flow voids at th e skull base. No extra-axial fluid collections. Mild mucosal thickening in the paranasal sinuses. Nor mal visualized orbits. Sinusitis RIGHT maxillary sinus. Mastoid air cells well aerated. No hemosiderin on the susceptibility weighted imaging. Normal optic chiasm and pituitary infundibulum. Moderate to advanced atrophy tempo ral lobes and hippocampal formations. Moderate ventriculomegaly can be seen with normal pressure hydrocephalus in appropriate clinical sett ing. This is slightly progressed compared to 2012. Ventricular size is stable since 2019. MR/MR head wo con* [id number] IMPRESSION: Limited FAST imaging was performed due to patient confusion 1. No evidence of restricted diffusion to suggest acute ischemia. 2. Moderate small vessel changes moderate parenchymal volume loss. 3. Moderate ventriculomegaly is unchanged since 2019. This can be seen with no rmal pressure hydrocephalus in the appropriate clinical setting. 4. No hemosiderin on susceptibly weighted images. 5. Moderate to advanced symmetric atrophy temporal lobes and hippocampal forma tions. 6. RIGHT maxillary sinusitis.
--- NOTE | 2021-10-02 13:14 | PM.PN ---
Subjective Subjective: Patient was seen and examined this morning, no acute events overnight,was seen sitting in the chair, underwent nuclear stress test, as well as MRI Brain without contrast. Medications: Medication Review Details: Generic Name Dose Route Start Last Admin Trade Name Pablo PRN Reason Stop Dose Admin Amlodipine Besylat e 10 mg 09/30/21 09:00 09/30/21 09:58 Amlodipine 10 Mg Tablet PO 10 mg DAILY RAMO Administration Aspirin 81 mg 09/30/21 09:00 09/30/21 09:58 Aspirin 81 Mg Ec Tablet PO 81 mg DAILY RAMO Administration Atorvastatin Calci um 40 mg 09/29/21 21:00 09/29/21 20:13 Atorvastatin 40 Mg Tablet PO 40 mg BEDTIME RAMO Administration Carvedilol 6.25 mg 09/30/21 09:00 09/30/21 09:58 Carvedilol 6.25 Mg Tablet PO 6.25 mg BID@0900,2100 RAMO Administration Enoxaparin Sodium 70 mg 09/30/21 01:00 09/30/21 12:12 Enoxaparin 80 Mg /0.8 Ml Syringe SUBCUT 70 mg Q12H RAMO Administration Hydralazine HCl 100 mg 09/30/21 13:00 09/30/21 14:39 Hydralazine 50 M g Tablet PO 100 mg QID RAMO Administration Lidocaine HCl 5 ml / Potassium 105 mls @ 25 mls/ hr 09/30/21 11:30 09/30/21 12:11 Chloride IV 09/30/21 15:41 25 mls/hr ONCE ONE Administration Vitals/I&O/Wt Last Vital Signs Temp 98.3 F 10/02/21 07:33 Pulse 90 10/02/21 07:33 Resp 18 10/02/21 07:33 BP 138/70 10/02/21 07:33 Pulse Ox 95 10/02/21 07:33 10/01/21 10/02/21 10/02/21 22:59 06:59 14:59 Intake Total 430 / 670 0 / 670 0 / 0 Balance 430 / 670 0 / 670 0 / 0 Weight last 48 hrs Weight 67.585 kg Physical Exam Narrative: Alert awake, oriented to place and person HENMT: COMMON NORMALS: normocephalic and atraumatic HEAD & SCALP: normocephalic and atraumatic Eye: COMMON NORMALS: no scleral icterus GENERAL EYE: appearance normal, both eyes and all related structures Chest: COMMONS NORMALS: normal inspection of the chest and normal palpation of entire chest wall CHEST: Yes Symmetrical chest wall rise Resp: COMMON NORMALS: normal respiratory effort, No retractions, No use of accessory muscles and clear to auscultation bilaterally EFFORT & INSPECTION: Yes symmetric chest movement AUSCULTATION: clear to auscultation bilaterally OTHER: Diminished air entry in left lung field particularly at the bases. Cardio: COMMON NORMALS: regular rate, regular rhythm, S1 normal heart sound present, S2 normal heart sound present, No gallops present (Cardio), No murmurs present (Cardio), No rub (Cardio) and Peripheral pulses 2+ throughout RATE: regular rate RHYTHM: regular rhythm HEART SOUNDS: S1 normal heart sound present and S2 normal heart sound present PERIPHERAL PULSES: Peripheral pulses 2+ throughout GI: COMMON NORMALS: Normal to inspection, nondistended, normoactive bowel sounds present, Soft to palpation, non-tender, No hepatosplenomegaly present and no masses AUSCULTATION: Yes normoactive bowel sounds PALPATION: Yes Soft to palpation and Yes No hepatosplenomegaly present RECTAL EXAM: deferred Extremity: COMMON NORMALS: no clubbing, cyanosis or edema and no pedal edema Data : 10/02/21 06:33 10/02/21 06:33 Micro: Microbiology 09/30/21 09:24 Gram Stain - Final Ankle - Pleura,Lt Lung Body Fluid Culture - Preliminary 09/29/21 12:45 Urine Culture - Final Urine,Clean Catch Escherichia coli A&P Assessment and plan (1) Non-ST elevation OR (NSTEMI): Status: Acute (2) Altered mental status: Status: Acute (3) Acute UTI: Status: Acute (4) Hypertension: Status: Acute (5) Hypothyroidism: Status: Acute (6) Gout: Status: Acute (7) Diabetes: Status: Acute (8) Thrombocytopenia: Status: Acute Plan Daksha Machuca is a 81 year old female with past medical history of hypertension diabetes hypothyroidism gout, when she had recurrent UTI was brought in with chief complaint of altered mental status. Assessment: NSTEMI: Currently patient is denying any chest pain, EKG: New ST-T wave changes in: Lead V1 to V3 as compared to prior EKGs Troponin trend: 124,113,138 Recent 2D echo done: Normal left ventricular cavity size and systolic function. Left ventricular ejection fraction is estimated at 60-65 %.? No diagnostic regional wall motion abnormality.Grade I diastolic dysfunction. Repeat limited 2D echo with contrast: Is a technically difficult study Normal left ventricular cavity size and systolic function. Left ventricular ejection fraction is estimated at 60 %.?There ?is possibly mild hypokinesis of basal to mid anteroseptal, apical septal and apical inferior diaz. Nuclear Stress Test : Small sized partially reversible perfusion abnormality of? mid anteroseptal, apical septal and apical anterior diaz. This is suggestive of myocardial infarction in left anterior descending artery territory with mild verónica-infarct ischemia. There is hypokinesis of apical anterior apical septal and apical diaz. CTA chest: No pulmonary embolism, large left pleural effusion. Currently on ACS protocol : Aspirin , statin, therapeutic Lovenox, beta-homero, Imdur. Conservative medical management for now. Cardiology follow up as outpatient. Telemetry monitoring. #Large left pleural effusion: S/p ultrasound-guided left-sided thoracentesis with removal of 900 cc dark red pleural fluid. Pleural fluid analysis is consistent with exudative effusion, possibly secondary to pneumonia. Pleural fluid WBC:1064, Pleural fluid glucose 109 Pleural fluid gram stain and culture: Rare white blood cell, no organism seen. Pleural fluid cytology: Negative for malignancy #Altered mental status: Possibly secondary to UTI V/S Progressive dementia Possible NPH : Given CT and MRI findings as well as confusion, Possible gait dysfunction ,has no reported urinary incontinence. CT head without contrast no acute intracranial pathology: Atrophy and mild ventriculomegaly MRI head without contrast:: Has failed to show any acute ischemia.Moderate ventriculomegaly is unchanged since 2019 Follow blood culture: Negative Urine culture: Gram-negative justine: E.COLI : Serum B12: Normal Serum folic acid: Nomal Serum ammonia level Procalcitonin:0.10 ABG: pH 7.51, PCO2 33, PO2 67, on room air Continue ceftriaxone for now Patient will need neurology outpatient follow up for further evaluation of possible NPH and the possible need for Large volume CSF removal to further confirm the diagnosis.Neurology coverage currently not available.And This is something which can be safely worked as outpatient. Hypertensive urgency: Amlodipine 10 mg p.o. daily, hydralazine , Carvedilol #Chronic thrombocytopenia: Monitor platelet count for now #Hypothyroidism: TSH and free T4 is normal Continue levothyroxine #History of diabetes: SSI FSG #GOUT: Continue allopurinol #DVT prophylaxis: On Lovenox #CODE STATUS: Full code #Disposition: Back to custodial Attestations Medical Necessity Statement*: Patient needs to be in hospital for the management of above defined problems. Time Spent in Patient Care: Greater than 35 minutes (>than 50% of time spent in counselling and/or direct pt care on unit). Coding Level of Care Code Acute Showroom Executive Director for [facility] Fwd Exam Detailed Diagnoses Non-ST elevation OR (NSTEMI) I21.4 Altered mental status R41.82 Acute UTI N39.0 Hypertension I10 Hypothyroidism E03.9 Gout M10.9 Diabetes E11.9 Thrombocytopenia D69.6
[2021-10-02] MEDS: regadenoson 0.4 Mg/5 ml Syringe IVP (13:26)
[2021-10-02] MEDS: ondansetron 2 mg/ML SDV 2 mL 4 MG IVP (13:27)
[2021-10-02 13:34] VITALS: BP 93/58; PULSE 93
[2021-10-02 15:19] VITALS: BP 91/51; PULSE 85; RESP 15; TEMP 36.5
[2021-10-02 18:51] VITALS: BP 115/66; PULSE 81; RESP 17; TEMP 36.5; O2SAT 98
--- NOTE | 2021-10-02 19:38 | NMCV_ITS ---
NM judit perf SPECT r/s* [id number] Daksha Machuca Age: 81 Gender: F : 1940 Exam Date: 10/02/2021 19:38 Ordering Phys: Aretha Owens MD ([email or web address]) Technologist: KRISTI Lincoln Exam Location: [facility] Indications: CHEST PAIN STRESS TEST [facility] IMAGE PROTOCOL Rest/Stress 1 Lexiscan Day Radiopharmaceutical Dose (mCi) Administration Site Administered by Rest: Tc-99m 10.9 IV KRISTI Mascorro Sestamibi Stress:Tc-99m 32.6 IV KRISTI Lincoln Sestamibrian Rest: 02-Oct-2021 60 Discovery 630 Stress: 02-Oct-2021 30 Discovery 630 0.4mg Lexiscan. Supine position only as patient was unable to lay prone. SPECT RESULTS Technical Quality: Good Raw Data Analysis: Normal Image Corrections: No attenuation or motion correction applied Summed Stress Score: 3 Summed Rest Score: 3 Summed Difference Score: 0 PERFUSION FINDINGS Small sized perfusion abnormality of mild severity of mid anteroseptal, apical septal and apical anterior diaz on rest images with mild reversibility in apical septal diaz. FUNCTIONAL RESULTS (calculated via Gated SPECT) Stress Image LV EF (%): 65 Stress EDV (mL):68 TID: 1.44 Stress ESV (mL):24 FUNCTIONAL FINDINGS: The left ventricle is normal in size. Transient Ischemia Dilatation of 1.4. The left ventricular ejection fraction is normal with a value of 65%. There is hypokinesis of apical anterior apical septal and apical diaz. Normal end-diastolic and end-systolic volumes. IMPRESSIONS 1. Small sized partially reversible perfusion abnormality of mid anteroseptal, apical septal and apical anterior diaz. 2. This is suggestive of myocardial infarction in left anterior descending artery territory with mild verónica-infarct ischemia. 3. Transient ischemic dilation index increased at 1.4. 4. The left ventricular ejection fraction is normal with a value of 65%. 5. There is hypokinesis of apical anterior apical septal and apical diaz. 6. EKG portion of the study will be reported separately. Aretha Owens MD (Electronically Signed) Final Date: 02 Oct 2021 15:47 S
[2021-10-02] MEDS: atorvastatin 40 mg Tablet PO (22:25)
[2021-10-02] MEDS: cefTRIAXone 1,000 MG in sodium chloride 0.9% (plus) 100 ML 100 MG IV (22:25)
[2021-10-03] VITALS (12 sets, daily range): BP systolic 87–137; BP diastolic 62–81; PULSE 69–100; RESP 15–20; TEMP 36.4–36.9; O2SAT 92–96
[2021-10-03 03:55] LABS: Basophils % 0.1 %; Eosinophils # 0.7 10^3/uL (0.0-0.8); Eosinophils % 6.8 %; Hemoglobin 14.6 g/dL (11.5-15.3); Lymphocytes # 2.1 10^3/uL (0.8-4.8); Mean Corpuscular HGB Conc 32.4 g/dL (30.0-36.0); Mean Corpuscular Hemoglobin 32.4 pg (28.0-34.0); Monocytes # 0.9 10^3/uL (0.2-0.9); Monocytes % 9.2 %; Neutrophils # 6.32 10^3/uL (1.8-7.7); Neutrophils % 62.6 %; Nucleated Red Blood Cells % 0 %; Platelet Count 114 10^3/cmm (130-400); Red Cell Distribution Width 15.7 % (12.1-15.1); White Blood Count 10.1 10^3/uL (4.0-10.0)
[2021-10-03 04:21] LABS: Anion Gap 13.8 (5-19); Blood Urea Nitrogen 33 mg/dL (8-23); Calcium 8.2 mg/dL (8.5-10.5); Carbon Dioxide 23 mmol/L (22-29); Chloride 108 mmol/L (98-107); Glucose 101 mg/dL (65-115); Osmolality Calculated 299 mOsm/kg (285-295); Potassium 3.8 mmol/L (3.5-5.1); Sodium 141 mmol/L (136-145)
[2021-10-03] MEDS: enoxaparin 40 mg/0.4 mL Syringe SUBCUT (06:41)
[2021-10-03] MEDS: acetaminophen 325 mg Tablet 650 MG PO ×2 (06:46→20:14)
--- NOTE | 2021-10-03 07:59 | XR_ITS ---
WS: [id number] PORTABLE CHEST HISTORY: LEFT pleural effusion. COMPARISON: 10/01/2021 Obscuration LEFT diaphragm. No increase in size of the small residual LEFT pleural effusion as compar ed to 10/01/2021. No pneumothorax. RIGHT lung is clear. Cardiac size: Moderately enlarged cardiac silhouette. Mediastinum/Aorta: Normal mediastinum. No osseous abnormality seen. XR/XR chest 1V portable [id number] IMPRESSION: 1. Small residual LEFT pleural effusion without increase in size since the pos tthoracentesis radiograph of 10/01/2021. 2. Cardiomegaly. 3. No pneumothorax.
--- NOTE | 2021-10-03 09:52 | PC.NURSE ---
Spoke with Dr. Roberts in person and he told me to hold all medications but amlodipine this morning.
[2021-10-03] MEDS: amlodipine 10 mg Tablet PO (09:54)
--- NOTE | 2021-10-03 12:21 | PM.PN ---
Subjective Subjective: Patient was seen and examined this morning,more oriented today. Medications: Medication Review Details: Generic Name Dose Route Start Last Admin Trade Name Pablo PRN Reason Stop Dose Admin Amlodipine Besylat e 10 mg 09/30/21 09:00 09/30/21 09:58 Amlodipine 10 Mg Tablet PO 10 mg DAILY RAMO Administration Aspirin 81 mg 09/30/21 09:00 09/30/21 09:58 Aspirin 81 Mg Ec Tablet PO 81 mg DAILY RAMO Administration Atorvastatin Calci um 40 mg 09/29/21 21:00 09/29/21 20:13 Atorvastatin 40 Mg Tablet PO 40 mg BEDTIME RAMO Administration Carvedilol 6.25 mg 09/30/21 09:00 09/30/21 09:58 Carvedilol 6.25 Mg Tablet PO 6.25 mg BID@0900,2100 RAMO Administration Enoxaparin Sodium 70 mg 09/30/21 01:00 09/30/21 12:12 Enoxaparin 80 Mg /0.8 Ml Syringe SUBCUT 70 mg Q12H RAMO Administration Hydralazine HCl 100 mg 09/30/21 13:00 09/30/21 14:39 Hydralazine 50 M g Tablet PO 100 mg QID RAMO Administration Lidocaine HCl 5 ml / Potassium 105 mls @ 25 mls/ hr 09/30/21 11:30 09/30/21 12:11 Chloride IV 09/30/21 15:41 25 mls/hr ONCE ONE Administration Vitals/I&O/Wt Last Vital Signs Temp 98.0 F 10/03/21 08:29 Pulse 87 10/03/21 08:29 Resp 16 10/03/21 08:29 BP 121/64 10/03/21 09:49 Pulse Ox 95 10/03/21 08:29 10/02/21 10/03/21 10/03/21 22:59 06:59 14:59 Intake Total 60 / 165 100 / 265 Balance 60 / 165 100 / 265 Weight last 48 hrs Weight 67.585 kg Physical Exam Narrative: Alert awake, oriented to place and person HENMT: COMMON NORMALS: normocephalic and atraumatic HEAD & SCALP: normocephalic and atraumatic Eye: COMMON NORMALS: no scleral icterus GENERAL EYE: appearance normal, both eyes and all related structures Chest: COMMONS NORMALS: normal inspection of the chest and normal palpation of entire chest wall CHEST: Yes Symmetrical chest wall rise Resp: COMMON NORMALS: normal respiratory effort, No retractions, No use of accessory muscles and clear to auscultation bilaterally EFFORT & INSPECTION: Yes symmetric chest movement AUSCULTATION: clear to auscultation bilaterally OTHER: Diminished air entry in left lung field particularly at the bases. Cardio: COMMON NORMALS: regular rate, regular rhythm, S1 normal heart sound present, S2 normal heart sound present, No gallops present (Cardio), No murmurs present (Cardio), No rub (Cardio) and Peripheral pulses 2+ throughout RATE: regular rate RHYTHM: regular rhythm HEART SOUNDS: S1 normal heart sound present and S2 normal heart sound present PERIPHERAL PULSES: Peripheral pulses 2+ throughout GI: COMMON NORMALS: Normal to inspection, nondistended, normoactive bowel sounds present, Soft to palpation, non-tender, No hepatosplenomegaly present and no masses AUSCULTATION: Yes normoactive bowel sounds PALPATION: Yes Soft to palpation and Yes No hepatosplenomegaly present RECTAL EXAM: deferred Extremity: COMMON NORMALS: no clubbing, cyanosis or edema and no pedal edema Data : 10/03/21 03:45 10/03/21 03:45 Micro: Microbiology 09/30/21 09:24 Gram Stain - Final Ankle - Pleura,Lt Lung Body Fluid Culture - Preliminary A&P Assessment and plan (1) Non-ST elevation [place] (NSTEMI): Status: Acute (2) Altered mental status: Status: Acute (3) Acute UTI: Status: Acute (4) Hypertension: Status: Acute (5) Hypothyroidism: Status: Acute (6) Gout: Status: Acute (7) Diabetes: Status: Acute (8) Thrombocytopenia: Status: Acute Plan Daksha Machuca is a 81 year old female with past medical history of hypertension diabetes hypothyroidism gout, when she had recurrent UTI was brought in with chief complaint of altered mental status. Assessment: NSTEMI: Currently patient is denying any chest pain, EKG: New ST-T wave changes in: Lead V1 to V3 as compared to prior EKGs Troponin trend: 124,113,138 Recent 2D echo done: Normal left ventricular cavity size and systolic function. Left ventricular ejection fraction is estimated at 60-65 %.? No diagnostic regional wall motion abnormality.Grade I diastolic dysfunction. Repeat limited 2D echo with contrast: Is a technically difficult study Normal left ventricular cavity size and systolic function. Left ventricular ejection fraction is estimated at 60 %.?There ?is possibly mild hypokinesis of basal to mid anteroseptal, apical septal and apical inferior diaz. Nuclear Stress Test : Small sized partially reversible perfusion abnormality of? mid anteroseptal, apical septal and apical anterior diaz. This is suggestive of myocardial infarction in left anterior descending artery territory with mild verónica-infarct ischemia. There is hypokinesis of apical anterior apical septal and apical diaz. CTA chest: No pulmonary embolism, large left pleural effusion. Currently on ACS protocol : Aspirin , statin, therapeutic Lovenox, beta-homero, Imdur. Conservative medical management for now. Cardiology follow up as outpatient. Telemetry monitoring. #Large left pleural effusion: S/p ultrasound-guided left-sided thoracentesis with removal of 900 cc dark red pleural fluid. Pleural fluid analysis is consistent with exudative effusion, possibly secondary to pneumonia. Pleural fluid WBC:1064, Pleural fluid glucose 109 Pleural fluid gram stain and culture: Rare white blood cell, no organism seen. Pleural fluid cytology: Negative for malignancy #Altered mental status: Possibly secondary to UTI V/S Progressive dementia Possible NPH : Given CT and MRI findings as well as confusion, Possible gait dysfunction ,has reported urinary incontinence. CT head without contrast no acute intracranial pathology: Atrophy and mild ventriculomegaly MRI head without contrast:: Has failed to show any acute ischemia.Moderate ventriculomegaly is unchanged since 2019 Follow blood culture: Negative Urine culture: Gram-negative justine: E.COLI : Serum B12: Normal Serum folic acid: Nomal Serum ammonia level Procalcitonin:0.10 ABG: pH 7.51, PCO2 33, PO2 67, on room air Continue ceftriaxone for now Patient will need neurology outpatient follow up for further evaluation of possible NPH and the possible need for Large volume CSF removal to further confirm the diagnosis.Neurology coverage currently not available.And This is something which can be safely worked as outpatient. Hypertensive urgency: Amlodipine 10 mg p.o. daily, hydralazine , Carvedilol #Chronic thrombocytopenia: Monitor platelet count for now #Hypothyroidism: TSH and free T4 is normal Continue levothyroxine #History of diabetes: SSI FSG #GOUT: Continue allopurinol #DVT prophylaxis: On Lovenox #CODE STATUS: Full code #Disposition: Back to [facility] Attestations Medical Necessity Statement*: Patient needs to be in hospital for the management of above defined problems Coding Level of Care Code Acute Fitness/Wellness Director for Chg Fwd Exam Detailed Diagnoses Non-ST elevation [place] (NSTEMI) I21.4 Altered mental status R41.82 Acute UTI N39.0 Hypertension I10 Hypothyroidism E03.9 Gout M10.9 Diabetes E11.9 Thrombocytopenia D69.6
[2021-10-03] MEDS: cefUROXime 250 mg Tablet 500 MG PO (19:19)
[2021-10-03] MEDS: carvedilol 6.25 mg Tablet PO (20:14)
[2021-10-03] MEDS: atorvastatin 40 mg Tablet PO (20:14)
--- NOTE | 2021-10-04 01:51 | PC.NURSE ---
This evening during med pass pt had an extremely difficult time swallowing whole pills. Kept touching at her throat saying they were stuck . she require many gulps of thickened liquid to get some of the whole pills down. I ended up crushing the remaining pill and gave with pudding, and the patient sated the same thing was happening. She gagged few times during this administration as well. Spoke to [place] nurse familiar with this patient and she stated the patient has a history of esophageal stricture. Will continue to crush meds in the future and well as thicken liquids to lessen chance of aspiration.
[2021-10-04 03:42] VITALS: BP 119/69; PULSE 80; RESP 20; TEMP 36.9; O2SAT 96
--- NOTE | 2021-10-04 05:44 | PC.NURSE ---
attempted to drawn patients blood this am after 4 failed attempts from lab. I was also unsuccessful. I let lab know.
[2021-10-04] MEDS: enoxaparin 40 mg/0.4 mL Syringe SUBCUT (06:05)
[2021-10-04 07:58] VITALS: BP 135/64; PULSE 86; RESP 15; TEMP 36.7; O2SAT 94
--- NOTE | 2021-10-04 09:19 | P.DS_ITS ---
Discharge Providers Date of Admission: 09/29/21 14:08 Date of Discharge: October 04, 2021 Attending Provider at Admission: Kunal Roberts MD Attending Provider at Discharge: Kunal Roberts MD Primary Care Provider: Sudheer Wood MD Diagnoses at Discharge Discharge Diagnosis (1) Non-ST elevation [place] (NSTEMI): Status: Acute (2) Altered mental status: Status: Acute (3) Acute UTI: Status: Acute (4) Hypertension: Status: Acute (5) Hypothyroidism: Status: Acute (6) Gout: Status: Acute (7) Diabetes: Status: Acute (8) Thrombocytopenia: Status: Acute Reason for Visit Reason for Visit: increased confusion Hospital Course Hospital Course Daksha Machuca is a 81 year old female with past medical history of hypertension diabetes hypothyroidism gout, dementia, recurrent UTI follow Dr. Carney as an outpatient on chronic suppressive therapy, resident of [facility] with c/o altered mental status, according to the family member she was more confused.During the hospital stay she was managed for Encephalopathy possibly sepsis to PNA,UTI,Possible NPH is alsoin consideration based on her recent clinical presentation worseing confusion, incontinence,gait was difficult to ascess,MRI brain without contrast failed to show any acute ischemia.Moderate ventriculomegaly is unchanged from 2019,CT head without contrast no acute intracranial pathology: Atrophy and mild ventriculomegaly Blood culture: Negative , Urine culture: Gram-negative justine: E.COLI :Serum B12: Normal,Serum folic acid: Nomal, Serum ammonia level. Procalcitonin:0.10.At the time of discharge her mentation was imroving,she was more alert,awake and oriented,she knew her name, name of his son and daughter.she will have to follow up with neurology as outpatient for further ev aluation of possible NPH and the possible need for Large volume CSF removal to further confirm the diagnosis.Neurology coverage currently not available.During the hospital stay she was also managed for NSTEMI: underwent nuclear stress test which showed :Small sized partially reversible perfusion abnormality of? mid anteroseptal, apical septal and apical anterior diaz. This is suggestive of myocardial infarction in left anterior descending artery territory with mild verónica-infarct ischemia.2D Echo: Recent 2D echo done:?Normal left ventricular cavity size and systolic function. Left ventricular ejection fraction is estimated at 60-65 %.? No diagnostic regional wall motion abnormality.Grade I diastolic dysfunction. Repeat limited 2D echo with contrast: Is a technically di fficult study Normal left ventricular cavity size and systolic function. Left ventricular ejection fraction is estimated at 60 %.?There ?is possibly mild hypokinesis of basal to mid anteroseptal, apical septal and apical inferior diaz.Family currently has opted for medical management and she is being discharged on aspirin,plavix,statin,beta blockers,lisinopril.Plan is to follow cardiology as outpatient.she was also managed for large lt sided pleural effusion S/p ultrasound-guided left-sided thoracentesis with removal of 900 cc dark red pleural fluid. Pleural fluid analysis is consistent with exudative effusion, possibly secondary to pneumonia.Pleural fluid cytology negative for malignancy. pleural fluid gram satin :no organism,no growth on culture.She was continued to be managed for her other comorbid.Overall she has responded well to above medical management and is being discharged on oral cefuroxime for additional 7 days to complete the Abx course for Pneumonia. she was also managed for UTI and was on rochephin. Patient is being [facility] to [facility]. Physical Exam Narrative: Alert awake, oriented to place and person HENMT: COMMON NORMALS: normocephalic and atraumatic HEAD & SCALP: normocephalic and atraumatic Eye: COMMON NORMALS: no scleral icterus GENERAL EYE: appearance normal, both eyes and all related structures Chest: COMMONS NORMALS: normal inspection of the chest and normal palpation of entire chest wall CHEST: Yes Symmetrical chest wall rise Resp: COMMON NORMALS: normal respiratory effort, No retractions, No use of accessory muscles and clear to auscultation bilaterally EFFORT & INSPECTION: Yes symmetric chest movement AUSCULTATION: clear to auscultation bilaterally OTHER: Diminished air entry in left lung field particularly at the bases. Cardio: COMMON NORMALS: regular rate, regular rhythm, S1 normal heart sound present, S2 normal heart sound present, No gallops present (Cardio), No murmurs present (Cardio), No rub (Cardio) and Peripheral pulses 2+ throughout RATE: regular rate RHYTHM: regular rhythm HEART SOUNDS: S1 normal heart sound present and S2 normal heart sound present PERIPHERAL PULSES: Peripheral pulses 2+ throughout GI: COMMON NORMALS: Normal to inspection, nondistended, normoactive bowel sounds present, Soft to palpation, non-tender, No hepatosplenomegaly present and no masses AUSCULTATION: Yes normoactive bowel sounds PALPATION: Yes Soft to palpation and Yes No hepatosplenomegaly present RECTAL EXAM: deferred Extremity: COMMON NORMALS: no clubbing, cyanosis or edema and no pedal edema Discharge Data Studies Completed and Pending Completed Studies During Hospitalization Category Date Time Status CT angio chest PE protcl [id number] Routine Cat Scan 09/29/21 15:[address] head wo con* [id number] Urgent Cat Scan 09/29/21 11:25 Completed Sestamibi Stress Test Request Routine Exams 10/01/21 19:38 Draft XR chest 1V portable [id number] Routine Exams 10/03/21 07:59 Completed XR chest 1V portable [id number] Stat Exams 09/29/21 11:25 Completed XR chest 1V portable [id number] Stat Exams 10/01/21 09:25 Completed MR head wo con* [id number] Routine MRI 10/02/21 12:09 Completed NM judit perf SPECT r/s* [id number] Routine Nuc Med 10/02/21 19:38 Completed CV. echo lmt w/w contras [id number] Routine Ultrasound 09/30/21 08:23 Completed US thoracentesis [id number] Routine Ultrasound 10/01/21 09:00 Completed Pending at discharge Category Date Time Status BMP [Basic Metabolic Panel] AM LABS Lab 10/04/21 04:00 Ordered BMP [Basic Metabolic Panel] AM LABS Lab 10/05/21 04:00 Ordered Blood Culture Routine Lab 09/30/21 07:48 Results Body Fluid Culture & GS Routine Lab 09/30/21 09:24 Results CBC Auto Diff [Complete Blood Count w/Auto] AM LABS Lab 10/04/21 04:00 Ordered CBC Auto Diff [Complete Blood Count w/Auto] AM LABS Lab 10/05/21 04:00 Ordered Radiology Impressions Head CT 09/29/21 11:25 IMPRESSION: 1. No acute intracranial hemorrhage or edema. Quality is limited by motion artifact and beam hardening artifact. 2. Atrophy and mild ventriculomegaly. No change since 07/22/2021. 3. RIGHT maxillary sinus opacification, stable. Chest CTA 09/29/21 15:57 IMPRESSION: 1. Negative for pulmonary embolism. 2. Large left pleural effusion. Thoracentesis Ultrasound 10/01/21 09:00 IMPRESSION: Uncomplicated ultrasound-guided LEFT thoracentesis with removal of 100 cc bloody pleural fluid. Head MRI 10/02/21 12:09 IMPRESSION: Limited FAST imaging was performed due to patient confusion 1. No evidence of restricted diffusion to suggest acute ischemia. 2. Moderate small vessel changes moderate parenchymal volume loss. 3. Moderate ventriculomegaly is unchanged since 2019. This can be seen with normal pressure hydrocephalus in the appropriate clinical setting. 4. No hemosiderin on susceptibly weighted images. 5. Moderate to advanced symmetric atrophy temporal lobes and hippocampal formations. 6. RIGHT maxillary sinusitis. Chest X-Ray 10/03/21 07:59 IMPRESSION: 1. Small residual LEFT pleural effusion without increase in size since the postthoracentesis radiograph of 10/01/2021. 2. Cardiomegaly. 3. No pneumothorax. Laboratory Results WBC 10.1 10^3/uL (4.0-10.0) H 10/03/21 03:45 RBC 4.50 10^6/uL (4.1-5.3) 10/03/21 03:45 Hgb 14.6 g/dL (11.5-15.3) 10/03/21 03:45 Hct 45.0 % (37.0-47.0) 10/03/21 03:45 MCV 100.0 fl (81-99) H 10/03/21 03:45 MCH 32.4 pg (28.0-34.0) 10/03/21 03:45 MCHC 32.4 g/dL (30.0-36.0) 10/03/21 03:45 RDW 15.7 % (12.1-15.1) H 10/03/21 03:45 Plt Count 114 10^3/cmm (130-400) L 10/03/21 03:45 MPV 10.0 fL (7.4-10.4) 10/03/21 03:45 Neut % (Auto) 62.6 % 10/03/21 03:45 Lymph % (Auto) 21.0 % 10/03/21 03:45 Addison % (Auto) 9.2 % 10/03/21 03:45 Eos % (Auto) 6.8 % 10/03/21 03:45 Baso % (Auto) 0.1 % 10/03/21 03:45 Neut # (Auto) 6.32 10^3/uL (1.8-7.7) 10/03/21 03:45 Lymph # (Auto) 2.1 10^3/uL (0.8-4.8) 10/03/21 03:45 Addison # (Auto) 0.9 10^3/uL (0.2-0.9) 10/03/21 03:45 Eos # (Auto) 0.7 10^3/uL (0.0-0.8) 10/03/21 03:45 Baso # (Auto) 0.0 10^3/uL (0.0-0.1) 10/03/21 03:45 Nucleated RBC % (auto) 0 % 10/03/21 03:45 Total Counted Not Reportable 10/01/21 09:24 Nucleated RBCs # 0.0 /100WBC 10/03/21 03:45 PT 16.80 SECONDS (12.1-14.9) H 10/01/21 04:25 INR 1.33 (0.8-1.2) H 10/01/21 04:25 APTT 24.0 SECONDS (23.9-36.7) 09/30/21 07:48 Specimen Type Arterial 09/29/21 12:20 Sample Site Radial, left 09/29/21 12:20 ABG pH 7.51 (7.35-7.45) H 09/29/21 12:20 ABG pCO2 33.5 mmHg (35-45) L 09/29/21 12:20 ABG pO2 67.0 mmHg (80.0-100.0) L 09/29/21 12:20 ABG HCO3 26.8 mmol/L (22-26) H 09/29/21 12:20 ABG O2 Saturation 95.7 09/29/21 12:20 ABG Base Excess 4.1 mmol/L (-2.0-2.0) H 09/29/21 12:20 Kunal Test Pos 09/29/21 12:20 A-a O2 Gradient 5.2 mmHg (5-10) 09/29/21 12:20 Hematocrit 40.6 % (37-47) 09/29/21 12:20 Hgb O2 Saturation 93.5 % (95-100) L 09/29/21 12:20 Carboxyhemoglobin 1.4 %THgb (0.4-20.1) 09/29/21 12:20 Methemoglobin 0.9 % (0.4-1.5) 09/29/21 12:20 Total Hemoglobin 13.2 g/dL (12-16) 09/29/21 12:20 Sodium 142.0 mmol/L (131-143) 09/29/21 12:20 Potassium 3.2 mmol/L (3.5-5.0) L 09/29/21 12:20 Glucose 100.0 mg/dL (70-115) 09/29/21 12:20 Ionized Calcium 1.1 mmol/L (1.1-1.4) 09/29/21 12:20 O2 Delivery Device Room air 09/29/21 12:20 FiO2 21.0 % 09/29/21 12:20 Quality Director ID Ed 09/29/21 12:20 Sodium 141 mmol/L (136-145) 10/03/21 03:45 Potassium 3.8 mmol/L (3.5-5.1) 10/03/21 03:45 Chloride 108 mmol/L (98-107) H 10/03/21 03:45 Carbon Dioxide 23 mmol/L (22-29) 10/03/21 03:45 Anion Gap 13.8 (5-19) 10/03/21 03:45 BUN 33 mg/dL (8-23) H 10/03/21 03:45 Creatinine 0.7 mg/dL (0.5-0.9) 10/03/21 03:45 GFR Calculation Not Reportable 10/03/21 03:45 Glucose 101 mg/dL (65-115) 10/03/21 03:45 POC Glucose 97 mg/dL (70-110) 10/01/21 06:30 Calculated Osmolality 299 mOsm/kg (285-295) H 10/03/21 03:45 Calcium 8.2 mg/dL (8.5-10.5) L 10/03/21 03:45 Total Bilirubin 1.3 mg/dL (0.15-1.2) H 10/02/21 06:33 AST 24 U/L (0-32) 10/02/21 06:33 ALT 17 U/L (0-33) 10/02/21 06:33 Alkaline Phosphatase 101 IU/L (35-105) 10/02/21 06:33 Ammonia 25 umol/L (11-51) 10/02/21 06:33 Lactate Dehydrogenase 268 U/L (135-214) H 09/30/21 07:48 Troponin T Baseline 124 ng/L (0-10) H* 09/29/21 12:30 Troponin T 120 Minute 113.2 ng/L (0-10) H 09/29/21 14:40 Delta Troponin T -10.8 ABS# (0-10) L 09/29/21 14:40 Troponin T Hi Sens 6Hr 138.3 ng/L (0-10) H 09/29/21 20:41 Troponin T Hi Sens 6Hr Delta 14.3 ng/L (0-12) H* 09/29/21 20:41 NT-Pro-B Natriuret Pep 5352 pg/mL (0-450) H 09/30/21 07:48 Total Protein 6.3 g/dL (6.6-8.7) L 10/02/21 06:33 Albumin 2.8 g/dL (3.5-5.2) L 10/02/21 06:33 Globulin 3.5 g/dL (1.3-4.6) 10/02/21 06:33 Lipase 25 U/L (13-60) 09/29/21 12:30 Vitamin B12 685 pg/mL (232-1245) 10/02/21 06:33 Folate 9.5 ng/mL (4.8-37.3) 10/02/21 06:33 Procalcitonin 0.10 ng/mL (0-0.5) 09/30/21 07:48 TSH 1.25 uIU/mL (0.27-4.20) 09/30/21 07:48 Free T4 1.59 ng/dL (0.82-1.77) 09/29/21 12:30 Urine Color Yellow (Yellow) 09/29/21 12:45 Urine Appearance Sl hazy (CLEAR) 09/29/21 12:45 Urine pH 6 (5-7) 09/29/21 12:45 Ur Specific Aldrich 1.015 (1.005-1.030) 09/29/21 12:45 Urine Protein Neg (Negative) 09/29/21 12:45 Urine Glucose (UA) Norm (Normal) 09/29/21 12:45 Urine Ketones 1+ (Negative) H 09/29/21 12:45 Urine Blood Neg (Negative) 09/29/21 12:45 Urine Nitrate Positive (Negative) H 09/29/21 12:45 Urine Bilirubin Neg (Negative) 09/29/21 12:45 Urine Urobilinogen Norm mg/dL (Negative) 09/29/21 12:45 Ur Leukocyte Esterase Negative (Negative) 09/29/21 12:45 Urine RBC None /hpf (0-2) 09/29/21 12:45 Urine WBC 10-15 /hpf (0-5) H 09/29/21 12:45 Ur Squamous Epith Cells 0-4 /hpf (0-5) H 09/29/21 12:45 Amorphous Sediment Not Reportable 09/29/21 12:45 Urine Bacteria 4+ /hpf (NONE) H 09/29/21 12:45 Pleural Color Red (Pale Yellow) H 10/01/21 09:24 Pleural Appearance Cloudy (CLEAR) 10/01/21 09:24 Pleural pH 9.00 (6.5-7.5) H 10/01/21 09:24 Pleural WBC 1064.000 /uL (0-1000) H 10/01/21 09:24 Pleural RBC 41.000 10^3/uL 10/01/21 09:24 Pleural Other Cells Not Reportable 10/01/21 09:24 Pleural Polynuclear % 4 % 10/01/21 09:24 Pleural Mononuclear % 96 % 10/01/21 09:24 Pleural Total Protein 2.8 g/dL 10/01/21 09:24 Pleural LDH 183 U/L 10/01/21 09:24 Pleural Glucose 109.0 mg/dL 10/01/21 09:24 Salicylates < 0.3 mg/dL (3-10) L 09/29/21 12:30 Acetaminophen < 5.0 ug/mL (10-30) L 09/29/21 12:30 Path Cons w/Slide Yes 10/01/21 09:24 Vitals Last Vital Signs Temp 98.1 F 10/04/21 07:58 Pulse 86 10/04/21 07:58 Resp 15 10/04/21 07:58 BP 135/64 10/04/21 07:58 Pulse Ox 94 10/04/21 07:58 Discharge Plan Discharge Patient Disposition: Home Condition: Stable Prescriptions: New nitroglycerin 0.4 mg Tablet, Sublingual 0.4 mg sublingual Q5M PRN (Reason: Chest Pain) 30 Days Qty: 30 0RF cefuroxime axetil 500 mg tablet 500 mg PO BID 7 Days Qty: 14 0RF atorvastatin 40 mg Tablet 40 mg PO BEDTIME 30 Days Qty: 30 3RF aspirin 81 mg Tablet,Delayed Release (Dr/Ec) 81 mg PO DAILY 30 Days Qty: 30 3RF Plavix 75 mg tablet 75 mg PO DAILY 30 Days Qty: 30 3RF Klor-Con M20 20 mEq tablet,ER particles/crystals 20 meq PO DAILY Qty: 30 0RF Continued alprazolam 0.25 mg tablet 0.25 mg PO BID@08,20 0RF magnesium hydroxide [Milk of Magnesia] 400 mg/5 mL suspension 30 ml PO Q24H PRN (Reason: Constipation) 0RF fluticasone propionate 50 mcg/actuation spray,suspension 1 spray intranasal BID@09,21 0RF Rx Instructions: administer into each nostril fexofenadine-pseudoephedrine [Nichole-D 24 Hour] 180-240 mg tablet extended release 24 hr 1 tab PO DAILY@08 0RF sertraline 25 mg tablet 25 mg PO DAILY@07 0RF Xtampza ER 18 mg cap,sprinkl,ER12hr(DONT CRUSH) 18 mg PO BID@08,20 0RF Rx Instructions: must administer with a meal/food polyethylene glycol 3350 [Miralax] 17 gram/dose powder 17 gm PO .EVERY 2 DAYS 0RF Rx Instructions: hold for loose stools furosemide [Lasix] 20 mg tablet 20 mg PO DAILY@08 0RF hydrocodone-acetaminophen 5-325 mg tablet 1 tab PO Q4H PRN (Reason: Pain) 0RF allopurinol 100 mg tablet 200 mg PO DAILY@08 0RF nitrofurantoin monohyd/m-cryst [Macrobid] 100 mg capsule 100 mg PO BID Qty: 60 2RF Rx Instructions: must administer with a meal/food bisacodyl 10 mg Suppository 10 mg GA DAILY PRN (Reason: Constipation) 0RF Vesicare 5 mg tablet 5 mg PO DAILY@07 0RF carvedilol 6.25 mg tablet 6.25 mg PO BID@08,20 30 Days Qty: 60 3RF lisinopril 40 mg tablet 40 mg PO DAILY 30 Days Qty: 30 3RF multivitamin Tablet 1 tab PO DAILY@07 0RF gabapentin 600 mg Tablet 600 mg PO TID@0700,1430,2000 0RF albuterol sulfate 2.5 mg /3 mL (0.083 %) Solution For Nebulization 2.5 mg INHALATION Q4H PRN (Reason: Shortness Of Breath) 0RF ondansetron HCl 4 mg Tablet 4 mg PO Q4H PRN (Reason: Nausea And Vomiting) 0RF sennosides-docusate sodium [Stool Softener-Laxative] 8.6-50 mg Tablet 2 tab PO BID@08,20 0RF levothyroxine 25 mcg tablet 25 mcg PO DAILY@06 0RF pantoprazole 40 mg Tablet,Delayed Release (Dr/Ec) 40 mg PO BID 0RF [id number] Enema 19-7 gram/118 mL Enema 118 ml GA DAILY PRN (Reason: Constipation) 0RF tobramycin-dexamethasone 0.3-0.1 % drops,suspension 1 drp ophthalmic (eye) BID@08,20 0RF Rx Instructions: right eye cyclobenzaprine 5 mg Tablet 5 mg PO Q8H PRN (Reason: Muscle Pain) 0RF Discharge Orders: Discharge Order (Routine); Ordered 10/04/21 Ordered By: Kunal Roberts Referrals: [facility] [Outside] Nancie Sood MD [Physician] - 2 weeks Sudheer Wood MD [Primary Care Provider] - Discharge Diet: Soft Mechanical Patient Instructions: Cefuroxime (By mouth), Nitroglycerin (By mouth), Potassium Chloride (By mouth), Aspirin (By mouth), Atorvastatin (By mouth), Clopidogrel (By mouth), Opioid Safety Discharge Attestations Time Spent in Discharge Care*: less than 30 min Quality Metrics Clinical Quality Measures [ No reported AMI, CVA or VTE this stay] Coding Level of Care Code Acute Chg FW DC note Diagnoses Non-ST elevation [place] (NSTEMI) I21.4 Altered mental status R41.82 Acute UTI N39.0 Hypertension I10 Hypothyroidism E03.9 Gout M10.9 Diabetes E11.9 Thrombocytopenia D69.6
--- NOTE | 2021-10-04 10:09 | PC.SOCIAL ---
IMM Updated Updated pt on IMM. No questions voiced. Provided pt a copy. Initialed, dated, & timed copy in chart.
[2021-10-04] MEDS: cefUROXime 250 mg Tablet 500 MG PO (10:23)
[2021-10-04] MEDS: amlodipine 10 mg Tablet PO (10:24)
[2021-10-04] MEDS: aspirin 81 mg EC Tablet PO (10:24)
[2021-10-04] MEDS: carvedilol 6.25 mg Tablet PO (10:24)
[2021-10-04 11:15] VITALS: BP 135/64; PULSE 86; RESP 15; TEMP 36.7; O2SAT 94
== END 2021-10-04 11:15 | disposition skilled nursing facility (03) | DRG 280 ==
LOC: ER 14:12 → MEDSURG 15:07
PROVIDERS: Admitting Provider Internal Medicine; Emergency Provider Emergency Medicine; PCP Internal Medicine; Visit Provider Internal Medicine
DX: I21.4 Non-ST elevation (NSTEMI) myocardial infarction (principal); J18.9 Pneumonia, unspecified organism; N39.0 Urinary tract infection, site not specified; J90 Pleural effusion, not elsewhere classified; I25.10 Atherosclerotic heart disease of native coronary artery without angina pectoris; Z87.440 Personal history of urinary (tract) infections; E11.51 Type 2 diabetes mellitus with diabetic peripheral angiopathy without gangrene; E11.42 Type 2 diabetes mellitus with diabetic polyneuropathy; Z86.73 Personal history of transient ischemic attack (TIA), and cerebral infarction without residual deficits; G89.29 Other chronic pain; M54.9 Dorsalgia, unspecified; K21.9 Gastro-esophageal reflux disease without esophagitis; F03.90 Unspecified dementia, unspecified severity, without behavioral disturbance, psychotic disturbance, mood disturbance, and anxiety; I10 Essential (primary) hypertension; E03.9 Hypothyroidism, unspecified; M10.9 Gout, unspecified; D69.6 Thrombocytopenia, unspecified; I16.0 Hypertensive urgency; Z79.891 Long term (current) use of opiate analgesic
CPT/HCPCS: 32555; 36415; 36416; 36600; 70450; 70551; 71045; 71275; 78452; 80048; 80051; 80053; 80307; 80503; 81001; 82140; 82330; 82607; 82746; 82805; 82945; 82962; 83615; 83690; 83880; 83986; 84145; 84157; 84439; 84443; 84484; 85025; 85610; 85730; 87040; 87070; 87075; 87077; 87086; 87186; 87205; 89050; 93005; 93017; 96365; 96372; 97110; 97161; 97530; 99285; A9500; C8924; J0696; J1650; J2405; J2785; J2930; J3480; J7040; Q9956; Q9967

== ENCOUNTER 2021-11-20 14:21 | Outpatient (CLI) | payer MEDICARE, MEDICAID, SELFPAY ==
--- NOTE | 2021-11-20 14:34 | XR_ITS ---
WS: [id number] XR chest 2V* [id number] REASON FOR EXAM: PNEUMONITIS FINDINGS: Compared to the previous examination of 10/03/2021, there continues to be increased opacity in the lef t lower chest which appears to be a combination of atelectasis of left lower lobe and pleural effusio n and pleural thickening. There may have been minimal improvement compared to the previous examinatio n. No new chest findings are identified. XR/XR chest 2V* [id number] IMPRESSION: Continued abnormality in the left lower hemithorax with minimal improvement. No new findings.
== END 2021-11-20 14:22 | disposition home or self-care (01) ==
PROVIDERS: PCP Internal Medicine; Visit Provider Nurse Practitioner Family
DX: J18.9 Pneumonia, unspecified organism (principal)
CPT/HCPCS: 71046

== ENCOUNTER → 2022-01-06 08:39 | Outpatient (BNVA) | payer MEDICARE, MEDICAID, SELFPAY | PROVIDERS: PCP Internal Medicine; Visit Provider Urology | DX: N30.80 Other cystitis without hematuria (principal); N39.41 Urge incontinence; N20.9 Urinary calculus, unspecified | CPT/HCPCS: 51798; 81003; 99213 ==

== ENCOUNTER 2022-03-17 13:54 | Outpatient (CLI) | payer MEDICARE, MEDICAID, SELFPAY ==
[2022-03-17 14:11] LABS: Basophils % 0.7 %; Eosinophils # 0.5 10^3/uL (0.0-0.8); Eosinophils % 15.4 %; Hematocrit 37.7 % (37.0-47.0); Hemoglobin 11.9 g/dL (11.5-15.3); Lymphocytes # 0.7 10^3/uL (0.8-4.8); Lymphocytes % 23.6 %; Mean Corpuscular HGB Conc 31.6 g/dL (30.0-36.0); Mean Corpuscular Hemoglobin 32.7 pg (28.0-34.0); Mean Corpuscular Volume 103.6 fl (81-99); Mean Platelet Volume 11.9 fL (7.4-10.4); Monocytes # 0.3 10^3/uL (0.2-0.9); Monocytes % 9.8 %; Neutrophils # 1.53 10^3/uL (1.8-7.7); Neutrophils % 50.2 %; Nucleated Red Blood Cells % 0 %; Platelet Count 61 10^3/cmm (130-400); Red Blood Count 3.64 10^6/uL (4.1-5.3); Red Cell Distribution Width 14.6 % (12.1-15.1); White Blood Count 3.1 10^3/uL (4.0-10.0)
[2022-03-17 14:16] LABS: Slide Review Slide Review Perform
== END 2022-03-17 13:55 | disposition home or self-care (01) ==
LOC: LAB 13:55
PROVIDERS: PCP Internal Medicine; Visit Provider Family Medicine
DX: D64.9 Anemia, unspecified (principal)
CPT/HCPCS: 85025

== ENCOUNTER → 2022-03-30 10:32 | Outpatient (BNVA) | payer MEDICARE, MEDICAID, SELFPAY | PROVIDERS: PCP Internal Medicine; Visit Provider Podiatrist Foot & Ankle Surgery | DX: I73.9 Peripheral vascular disease, unspecified (principal); E11.21 Type 2 diabetes mellitus with diabetic nephropathy; M21.41 Flat foot [pes planus] (acquired), right foot; M21.42 Flat foot [pes planus] (acquired), left foot; M20.41 Other hammer toe(s) (acquired), right foot; M20.42 Other hammer toe(s) (acquired), left foot; L60.8 Other nail disorders; L60.3 Nail dystrophy | CPT/HCPCS: 11721; 99204 ==

== ENCOUNTER 2022-04-01 10:31 | Outpatient (CLI) | payer MEDICARE, MEDICAID, SELFPAY ==
[2022-04-01 10:49] LABS: Basophils % 0.5 %; Eosinophils # 0.6 10^3/uL (0.0-0.8); Eosinophils % 14.6 %; Hematocrit 34.7 % (37.0-47.0); Lymphocytes % 25.1 %; Mean Corpuscular HGB Conc 31.7 g/dL (30.0-36.0); Mean Corpuscular Hemoglobin 32.2 pg (28.0-34.0); Mean Corpuscular Volume 101.5 fl (81-99); Mean Platelet Volume 11.1 fL (7.4-10.4); Monocytes # 0.5 10^3/uL (0.2-0.9); Neutrophils # 1.86 10^3/uL (1.8-7.7); Neutrophils % 47.5 %; Nucleated Red Blood Cells % 0 %; Platelet Count 88 10^3/cmm (130-400); Red Blood Count 3.42 10^6/uL (4.1-5.3); Red Cell Distribution Width 14.4 % (12.1-15.1); White Blood Count 3.9 10^3/uL (4.0-10.0)
== END 2022-04-01 10:32 | disposition home or self-care (01) ==
PROVIDERS: PCP Internal Medicine; Visit Provider Nurse Practitioner Family
DX: I10 Essential (primary) hypertension (principal)
CPT/HCPCS: 85025

== ENCOUNTER 2022-07-02 23:33 | Emergency (ER) | payer MEDICARE, MEDICAID, SELFPAY ==
--- NOTE | 2022-07-02 23:34 | XRR_ITS ---
PROCEDURE INFORMATION: Exam: XR Chest Exam date and time: 07/02/2022 11:40 PM Age: 82 years old Clinical indication: Chest pressure; Prior surgery; Surgery type: Gb; Patient HX: C/O central chest pain. History of nstemi; Additional info: Cp TECHNIQUE: Imaging protocol: Radiologic exam of the chest. Views: 1 view. COMPARISON: CR XR chest 2V* [id number] 11/20/2021 2:50 PM FINDINGS: Lungs: Mild COPD. Left basilar opacity and effusion improved. Lung base atelectasis or scarring bilaterally. Pleural spaces: No pneumothorax. Heart/Mediastinum: The heart is large. GE junction clips. Bones/joints: [id number] scoliosis. Old left rib deformities. Organs: Absent gallbladder. XR/XR chest 1V portable [id number] IMPRESSION: 1. Left basilar opacity and effusion markedly improved from 11/20/2021. 2. Multiple chronic findings above. No new consolidation or evidence of pneumothorax.
[2022-07-02 23:38] VITALS: BP 173/91; PULSE 83; RESP 12; TEMP 36.8; O2SAT 95; BMI 32.9
--- NOTE | 2022-07-02 23:38 | ED_ITS ---
HPI - Chest Pain General: Chief Complaint: Chest Pain Stated Complaint: CP Time Seen by Provider: 07/02/22 23:35 Source: patient and EMS Mode of arrival: EMS Limitations: no limitations History of Present Illness: 82-year-old female who is here from skilled nursing states she started having a sharp pain in the center of her chest over 2 hours ago. She was given nitro by skilled nursing with no relief of her pain states pain is currently a 5 out of 10 she denies any shortness of breath denies any vomiting diarrhea she has no diaphoresis denies any worsening improving factors. Associated symptoms: Deny abdominal pain, dyspnea, fever(s), nausea or vomiting Review of Systems Const: Denies: fever(s), chills, body aches or change in appetite Eyes: Denies: blurry vision or eye discomfort ENMT: Denies: throat pain or dental pain Card: Reports: chest pain Resp: Denies: dyspnea GI: Denies: abdominal pain, nausea, vomiting or diarrhea : Denies: dysuria Musc: Denies: neck pain or back pain Skin/Breast: Denies: rash Neuro: Denies: headache(s) Psych: Denies: depression Edu/Lymph: Denies: easy bruising All/Imm: Denies: urticaria PFSH ED PFSH: Medical History Acute UTI Altered mental status 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 Chronic back pain Chronic cystitis Confusion Cystitis cystica Diabetes GERD (gastroesophageal reflux disease) Gout History of CVA (cerebrovascular accident) History of diabetes mellitus Hypertension Hypothyroidism Non-ST elevation [place] (NSTEMI) Osteoarthritis Peripheral artery disease Polyneuropathy Post herpetic neuralgia Retained ureteral stent Thrombocytopenia Urolithiasis Surgical History H/O bladder repair surgery H/O: hysterectomy Hip fracture History of cataract surgery History of cholecystectomy S/P tonsillectomy Family History Other Kidney malignancy Social History Smoking and tobacco status: never smoked Alcohol intake: never Adopted: No Caregiver/support person: No Lives independently: No Housing: [facility] Marital status: Current occupational status: retired History of recent travel: No Current gender identity: Female Physical Exam Const: COMMON NORMALS: no acute distress, patient oriented x3 and healthy appearing HENMT: COMMON NORMALS: normocephalic and atraumatic HEAD & SCALP: normoceph alic and atraumatic Eye: COMMON NORMALS: Equal, round and reactive pupils present and EOMs intact bilaterally PUPIL: Yes Equal, round and reactive pupils present Neck/C-Spine: COMMON NORMALS: full ROM and supple Chest: COMMONS NORMALS: normal inspection of the chest OTHER: point tender across chest reproduces pain Resp: COMMON NORMALS: normal respiratory effort, No retractions, No use of accessory muscles and clear to auscultation bilaterally AUSCULTATION: clear to auscultation bilaterally Cardio: COMMON NORMALS: regular rate, regular rhythm and No murmurs present (Cardio) RATE: regular rate RHYTHM: regular rhythm GI: COMMON NORMALS: Normal to inspection, nondistended, normoactive bowel sounds present, Soft to palpation, non-tender and no masses PALPATION: Yes Soft to palpation Extremity: COMMON NORMALS: normal to inspection and full ROM Neuro: COMMON NORMALS: patient oriented x3, moves all extremities and no focal motor deficits Psych: COMMON NORMALS: mental status grossly normal, Normal thought process present and cooperative THOUGHT PROCESS: Normal thought process present Skin: COMMON NORMALS: no rashes or lesions noted and no wounds GENERAL SKIN EXAM: no rashes or lesions noted Course Vital Signs: Vital signs: Vital Signs Temperature 98.3 F 07/02/22 23:38 Pulse Rate 81 07/03/22 02:00 Respiratory Rate 20 H 07/03/22 02:00 Blood Pressure 141/62 07/03/22 02:00 Pulse Oximetry 95 07/03/22 02:00 Oxygen Delivery Me thod 07/03/22 00:28 MDM - Chest Pain Medical Decision Making Patient presents for chest pain is atypical in nature she is tender on exam and likely chest wall pain troponins are negative patient stable for discharge follow PCP return if worsen. Lab Data 07/02/22 23:58 07/02/22 23:58 Radiology Impressions Chest X-Ray 07/02/22 23:34 IMPRESSION: 1. Left basilar opacity and effusion markedly improved from 11/20/2021. 2. Multiple chronic findings above. No new consolidation or evidence of pneumothorax. Laboratory Results WBC 4.4 10^3/uL (4.0-10.0) 07/02/22 23:58 RBC 3.34 10^6/uL (4.1-5.3) L 07/02/22 23:58 Hgb 10.6 g/dL (11.5-15.3) L 07/02/22 23:58 Hct 34.3 % (37.0-47.0) L 07/02/22 23:58 MCV 102.7 fl (81-99) H 07/02/22 23:58 MCH 31.7 pg (28.0-34.0) 07/02/22 23:58 MCHC 30.9 g/dL (30.0-36.0) 07/02/22 23: RDW 14.0 % (12.1-15.1) 07/02/22 23:58 Plt Count 69 10^3/cmm (130-400) L 07/02/22 23:58 MPV 11.6 fL (7.4-10.4) H 07/02/22 23:58 Neut % (Auto) 61.4 % 07/02/22 23:58 Lymph % (Auto) 14.1 % 07/02/22 23:58 [place] % (Auto) 12.0 % 07/02/22 23:58 Eos % (Auto) 11.8 % 07/02/22 23:58 Baso % (Auto) 0.5 % 07/02/22 23:58 Neut # (Auto) 2.70 10^3/uL (1.8-7.7) 07/02/22 23:58 Lymph # (Auto) 0.6 10^3/uL (0.8-4.8) L 07/02/22 23:58 [place] # (Auto) 0.5 10^3/uL (0.2-0.9) 07/02/22 23:58 Eos # (Auto) 0.5 10^3/uL (0.0-0.8) 07/02/22 23:58 Baso # (Auto) 0.0 10^3/uL (0.0-0.1) 07/02/22 23:58 Nucleated RBC % (auto) 0 % 07/02/22 23:58 Nucleated RBCs # 0.0 /100WBC 07/02/22 23:58 Sodium 141 mmol/L (136-145) 07/02/22 23:58 Potassium 3.8 mmol/L (3.5-5.1) 07/02/22 23:58 Chloride 105 mmol/L (98-107) 07/02/22 23:58 Carbon Dioxide 26 mmol/L (22-29) 07/02/22 23:58 Anion Gap 13.8 (5-19) 07/02/22 23:58 BUN 13 mg/dL (8-23) 07/02/22 23:58 Creatinine 0.7 mg/dL (0.5-0.9) 07/02/22 23:58 GFR Calculation Not Reportable 07/02/22 23:58 Glucose 93 mg/dL (65-115) 07/02/22 23:58 Calculated Osmolality 292 mOsm/kg (285-295) 07/02/22 23:58 Calcium 8.9 mg/dL (8.5-10.5) 07/02/22 23:58 Total Bilirubin 0.8 mg/dL (0.15-1.2) 07/02/22 23:58 AST 23 U/L (0-32) 07/02/22 23:58 ALT 11 U/L (0-33) 07/02/22 23:58 Alkaline Phosphatase 130 U/L (35-105) H 07/02/22 23:58 Troponin T Baseline 15 ng/L (0-10) H 07/02/22 23:58 Troponin T 120 Minute 17.39 ng/L (0-10) H 07/03/22 02:12 Delta Troponin T 2.39 ABS# (0-10) 07/03/22 02:12 Total Protein 6.7 g/dL (6.6-8.7) 07/02/22 23:58 Albumin 3.4 g/dL (3.5-5.2) L 07/02/22 23:58 Globulin 3.3 g/dL (1.3-4.6) 07/02/22 23:58 Lipase 12 U/L (13-60) L 07/02/22 23:58 EKG Data EKG 1: I personally reviewed and interpreted this EKG as follows: EKG interpretation date: 07/02/22 EKG interpretation time: 23:51 Interpretation: nsr hr [address] or twave abnormalities qrs 102 [id number] Discharge Plan Discharge Patient Disposition: Home Clinical Impression: Chest pain Condition: Stable Prescriptions: No Action alprazolam 0.25 mg tablet 0.25 mg PO BID@, magnesium hydroxide [Milk of Magnesia] 400 mg/5 mL suspension 30 ml PO Q24H PRN (Reason: Constipation) fluticasone propionate 50 mcg/actuation spray,suspension 1 spray intranasal BID@, Rx Instructions: administer into each nostril fexofenadine-pseudoephedrine [Nichole-D 24 Hour] 180-240 mg tablet extended release 24 hr 1 tab PO DAILY@08 sertraline 25 mg tablet 25 mg PO DAILY@07 Xtampza ER 18 mg cap,sprinkl,ER12hr(DONT CRUSH) 18 mg PO BID@,20 Rx Instructions: must administer with a meal/food polyethylene glycol 3350 [Miralax] 17 gram/dose powder 17 gm PO .EVERY 2 DAYS Rx Instructions: hold for loose stools furosemide [Lasix] 20 mg tablet 20 mg PO DAILY@08 hydrocodone-acetaminophen 5-325 mg tablet 1 tab PO Q4H PRN (Reason: Pain) allopurinol 100 mg tablet 200 mg PO DAILY@08 nitrofurantoin monohyd/m-cryst [Macrobid] 100 mg capsule 100 mg PO BID Qty: 60 2RF Rx Instructions: must administer with a meal/food solifenacin [Vesicare] 5 mg tablet 5 mg PO DAILY Qty: 30 12RF bisacodyl 10 mg Suppository 10 mg MD DAILY PRN (Reason: Constipation) carvedilol 6.25 mg tablet 6.25 mg PO BID@08,20 30 Days Qty: 60 3RF lisinopril 40 mg tablet 40 mg PO DAILY 30 Days Qty: 30 3RF atorvastatin 40 mg Tablet 40 mg PO BEDTIME 30 Days Qty: 30 3RF aspirin 81 mg Tablet,Delayed Release (Dr/Ec) 81 mg PO DAILY 30 Days Qty: 30 3RF Plavix 75 mg tablet 75 mg PO DAILY 30 Days Qty: 30 3RF Klor-Con M20 20 mEq tablet,ER particles/crystals 20 meq PO DAILY Qty: 30 0RF multivitamin Tablet 1 tab PO DAILY@07 gabapentin 600 mg Tablet 600 mg PO TID@0700,1430,2000 albuterol sulfate 2.5 mg /3 mL (0.083 %) Solution For Nebulization 2.5 mg INHALATION Q4H PRN (Reason: Shortness Of Breath) ondansetron HCl 4 mg Tablet 4 mg PO Q4H PRN (Reason: Nausea And Vomiting) sennosides-docusate sodium [Stool Softener-Laxative] 8.6-50 mg Tablet 2 tab PO BID@08,20 levothyroxine 25 mcg tablet 25 mcg PO DAILY@06 pantoprazole 40 mg Tablet,Delayed Release (Dr/Ec) 40 mg PO BID Ijbmm-Tg-Sut Enema 19-7 gram/118 mL Enema 118 ml MD DAILY PRN (Reason: Constipation) tobramycin-dexamethasone 0.3-0.1 % drops,suspension 1 drp ophthalmic (eye) BID@08,20 Rx Instructions: right eye cyclobenzaprine 5 mg Tablet 5 mg PO Q8H PRN (Reason: Muscle Pain) Discharge Orders: Discharge ED (Routine); Ordered 07/03/22 Ordered By: Nam Mendez Referrals: Sudheer Wood MD [Primary Care Provider] - 1-3 days Discharge Diet: Advance as tolerated Discharge Activity: Resume usual activity Patient Instructions: Chest Pain (ED) Coding Level of Care Code ED Lesson Instructor for Paramjit Low
--- NOTE | 2022-07-02 23:51 | ECG_ITS ---
[facility] Test Date: 2022-07-02 Pat Name: Daksha Machuca Department: Room: Gender: Female Gis Coordinator: : 1940 Requested By: Nam Mendez Order Number: [id number] Reading MD: Alban Cisneros M.D. Measurements Intervals [place] Rate: 82 P: 1 TN: 131 QRS: 66 QRSD: 102 T: 11 QT: 380 QTc: 446 Interpretive Statements SINUS RHYTHM NONSPECIFIC T-WAVE ABNORMALITY Compared to ECG 09/29/2021 16:00:57 Possible ischemia no longer present T-wave abnormality still present Electronically Signed On 07-03-2022 16:17:41 MOLDED GOODS SPOT PICKER by Alban Cisneros M.D. [id number]
[2022-07-03 00:10] LABS: Basophils % 0.5 %; Eosinophils # 0.5 10^3/uL (0.0-0.8); Eosinophils % 11.8 %; Hematocrit 34.3 % (37.0-47.0); Hemoglobin 10.6 g/dL (11.5-15.3); Lymphocytes # 0.6 10^3/uL (0.8-4.8); Lymphocytes % 14.1 %; Mean Corpuscular HGB Conc 30.9 g/dL (30.0-36.0); Mean Corpuscular Hemoglobin 31.7 pg (28.0-34.0); Mean Corpuscular Volume 102.7 fl (81-99); Mean Platelet Volume 11.6 fL (7.4-10.4); Monocytes # 0.5 10^3/uL (0.2-0.9); Neutrophils % 61.4 %; Nucleated Red Blood Cells % 0 %; Platelet Count 69 10^3/cmm (130-400); Red Blood Count 3.34 10^6/uL (4.1-5.3); White Blood Count 4.4 10^3/uL (4.0-10.0)
[2022-07-03 00:28] VITALS: BP 173/91; PULSE 82; RESP 16; O2SAT 95
[2022-07-03 00:29] LABS: Alanine Aminotransferase 11 U/L (0-33); Albumin Level 3.4 g/dL (3.5-5.2); Alkaline Phosphatase 130 U/L (35-105); Anion Gap 13.8 (5-19); Aspartate Amino Transferase 23 U/L (0-32); Blood Urea Nitrogen 13 mg/dL (8-23); Calcium 8.9 mg/dL (8.5-10.5); Carbon Dioxide 26 mmol/L (22-29); Chloride 105 mmol/L (98-107); Globulin 3.3 g/dL (1.3-4.6); Glucose 93 mg/dL (65-115); Lipase 12 U/L (13-60); Osmolality Calculated 292 mOsm/kg (285-295); Potassium 3.8 mmol/L (3.5-5.1); Sodium 141 mmol/L (136-145); Total Bilirubin 0.8 mg/dL (0.15-1.2); Total Protein 6.7 g/dL (6.6-8.7)
[2022-07-03 00:32] LABS: Troponin(5th) Baseline 15 ng/L (0-10)
[2022-07-03 00:33] VITALS: RESP 16
[2022-07-03] MEDS: morphine 4 mg/mL SDV 1 mL IVP (00:33)
[2022-07-03 00:36] VITALS: BP 163/76; PULSE 82; RESP 16; O2SAT 94
--- NOTE | 2022-07-03 01:34 | ECG_ITS ---
[facility] Test Date: 2022-07-03 Pat Name: Daksha Machuca Department: Room: Gender: Female Medical Insurance Claims Processor: : 1940 Requested By: Nam Mendez Order Number: [id number] Magalys MD: Alban Cisneros M.D. Measurements Intervals [place] Rate: 81 P: 1 ND: 147 QRS: 68 QRSD: 99 T: 27 QT: 392 QTc: 457 Interpretive Statements SINUS RHYTHM Compared to ECG 07/02/2022 23:51:18 T-wave abnormality no longer present Electronically Signed On 07-03-2022 16:21:27 PROGRAM EVALUATOR by Alban Cisneros M.D. [email or web address] Biotechashtabula county medical [email or web address]/[id number]
[2022-07-03 01:38] VITALS: BP 141/62; PULSE 83; RESP 12; O2SAT 93
[2022-07-03 02:00] VITALS: BP 141/62; PULSE 81; RESP 20; O2SAT 95
[2022-07-03 02:31] LABS: Troponin 5 2HR 17.39 ng/L (0-10); Troponin 5 2HR Delta 2.39 ABS# (0-10)
[2022-07-03 02:54] VITALS: BP 143/63; PULSE 77; RESP 14; O2SAT 95
== END 2022-07-03 03:48 | disposition home or self-care (01) ==
PROVIDERS: Emergency Provider Emergency Medicine; PCP Internal Medicine
DX: R07.9 Chest pain, unspecified (principal); Z79.82 Long term (current) use of aspirin; Z79.02 Long term (current) use of antithrombotics/antiplatelets; I25.10 Atherosclerotic heart disease of native coronary artery without angina pectoris; E11.9 Type 2 diabetes mellitus without complications; Z86.73 Personal history of transient ischemic attack (TIA), and cerebral infarction without residual deficits; I10 Essential (primary) hypertension; I25.2 Old myocardial infarction
CPT/HCPCS: 36415; 71045; 80053; 83690; 84484; 85025; 93005; 96374; 99285; J2270

== ENCOUNTER 2022-08-01 11:56 | Emergency (ER) | payer MEDICARE, MEDICAID, SELFPAY ==
[2022-08-01 12:02] VITALS: BP 187/106; PULSE 79; RESP 18; TEMP 37.1; O2SAT 94; BMI 36.6
[2022-08-01 12:07] VITALS: PULSE 85; RESP 21
--- NOTE | 2022-08-01 12:12 | CTR_ITS ---
PROCEDURE INFORMATION: Exam: CT Head Without Contrast Exam date and time: 08/01/2022 12:34 PM Age: 82 years old Clinical indication: Injury or trauma; Fall; Blunt trauma (contusions or hematomas); Additional info: Fall head pain on plavix TECHNIQUE: Imaging protocol: Computed tomography of the head without contrast. Radiation optimization: All CT scans at this facility use at least one of these dose optimization techniques: automated exposure control; mA and/or kV adjustment per patient size (includes targeted exams where dose is matched to clinical indication); or iterative reconstruction. REPORTING DATA: Count of CT and Cardiac NM exams in prior 12 months: This patient has received 3 known CTs and 0 known cardiac nuclear medicine studies in the 12 months prior to the current study. COMPARISON: MR head wo con* [id number] 10/02/2021 12:00 PM RADIATION DOSE METRICS: Total DLP (mGy-cm): 1123.08 FINDINGS: Brain: There is a 9 mm acute parafalcine subdural hematoma along the anterior falx. There is no significant mass effect edema or midline shift. There is generalized chronic atrophy with prominence of the ventricles and sulci. There is chronic white matter ischemic changes. Cerebral ventricles: The ventricles are prominent consistent with chronic atrophy.. Paranasal sinuses: Right maxillary sinus is completely opacified. Mastoid air cells: Visualized mastoid air cells are well aerated. Bones/joints: Unremarkable. No acute fracture. Soft tissues: Unremarkable. CT/CT head wo con* [id number] IMPRESSION: There is a 9 mm acute parafalcine subdural hematoma along the left side of the anterior falx. No significant mass effect or edema.
--- NOTE | 2022-08-01 12:12 | XRR_ITS ---
PROCEDURE INFORMATION: Exam: XR Thoracic Spine Exam date and time: 08/01/2022 12:41 PM Age: 82 years old Clinical indication: Injury or trauma; Fall; Blunt trauma (contusions or hematomas); Additional info: Fall thoracic spine pain TECHNIQUE: Imaging protocol: Radiologic exam of the thoracic spine. Views: 3 views. COMPARISON: CR (CHEST, ) 07/02/2022 11:40 PM FINDINGS: Bones/joints: There is moderate S shaped thoracolumbar scoliosis. Is diffuse decreased bone density. No fracture or other acute bony abnormality is seen. Scattered mild degenerative changes are present. Soft tissues: Unremarkable. XR/XR thoracic spine 2V [id number] IMPRESSION: No acute bony abnormality.
--- NOTE | 2022-08-01 12:12 | XRR_ITS ---
PROCEDURE INFORMATION: Exam: XR Lumbosacral Spine Exam date and time: 08/01/2022 12:44 PM Age: 82 years old Clinical indication: Injury or trauma; Fall; Blunt trauma (contusions or hematomas); Additional info: Fall lbp TECHNIQUE: Imaging protocol: Radiologic exam of the lumbosacral spine. Views: 2 or 3 views. COMPARISON: CT kidney stone [id number] 05/21/2020 12:45 PM FINDINGS: Bones/joints: There is lumbar scoliosis convex to the left. Chronic degenerative changes are present throughout the lumbar spine with joint space narrowing and osteophytes. No fracture or other acute bone or joint abnormality. Soft tissues: Unremarkable. XR/XR lumbar spine 2-3V* [id number] IMPRESSION: No acute abnormality is seen in the lumbar spine.
--- NOTE | 2022-08-01 12:15 | W.ED.FALL ---
HPI - Fall General: Chief Complaint: Fall Stated Complaint: PAIN ALL OVER S/P FALL Time Seen by Provider: 08/01/22 12:06 History of Present Illness: Patient said she fell a couple hours ago when trying to transfer from the recliner to the wheelchair. Patient states her spine hurts and her head hurts currently. Patient is on Plavix patient is unsure if she lost consciousness. Onset (ago): hour(s) (About 2 hours ago) Fall witnessed: no Place fall occurred: correction/SNF Loss of consciousness: Unsure Symptoms prior to fall: none Context: tripped/slipped Location of injury: head and back Severity: moderate Associated symptoms-after fall: Reports no associated symptoms; Denies abdominal pain, chest pain or headache(s) Review of Systems General: Reports: 10 or more systems reviewed and unremarkable except in HPI and below Const: Reports: body aches; Denies: fever(s) or chills Eyes: Denies: change in vision, blurry vision or blind spots ENMT: Denies: throat pain or odynophagia Card: Denies: chest pain, palpitations or irregular heart rhythm Resp: Denies: dyspnea, productive cough, non-productive cough or wheezing GI: Denies: abdominal pain, nausea, vomiting or diarrhea : Denies: flank pain, difficulty voiding, dysuria or urinary frequency Musc: Reports: back pain (Chronic back pain but worse since the fall) Neuro: Denies: headache(s), numbness in extremities or weakness in extremities Psych: Denies: anxiety, depression, mood swings or panic attacks Endo: Denies: polyuria, polydipsia, tired all the time or cold intolerance All/Imm: Denies: urticaria, throat swelling or tongue swelling PFSH ED PFSH: Medical History Acute UTI Altered mental status CAD in [place] artery Chronic back pain Chronic cystitis Confusion Cystitis cystica Diabetes GERD (gastroesophageal reflux disease) Gout History of CVA (cerebrovascular accident) History of diabetes mellitus Hypertension Hypothyroidism Non-ST elevation [place] (NSTEMI) Osteoarthritis Peripheral artery disease Polyneuropathy Post herpetic neuralgia Retained ureteral stent Thrombocytopenia Urolithiasis Surgical History H/O bladder repair surgery H/O: hysterectomy Hip fracture History of cataract surgery History of cholecystectomy S/P tonsillectomy Family History Other Kidney malignancy Social History Smoking and tobacco status: never smoked Alcohol intake: never Adopted: No Caregiver/support person: No Lives independently: No Housing: Longterm Marital status: Current occupational status: retired Current gender identity: Female Physical Exam Const: COMMON NORMALS: no acute distress, average body habitus, patient oriented x3, no limitations, healthy appearing, alert and well nourished OTHER: Hard of hearing HENMT: COMMON NORMALS: normocephalic, atraumatic and external ears normal HEAD & SCALP: normocephalic and atraumatic EXTERNAL EAR: Yes external ears normal Eye: COMMON NORMALS: Equal, round and reactive pupils present, EOMs intact bilaterally and conjunctivae normal CONJUNCTIVA: Yes conjunctivae normal PUPIL: Yes Equal, round and reactive pupils present Neck/C-Spine: COMMON NORMALS: full ROM, no lymphadenopathy, supple, no meningeal signs, no JVD and Thyroid normal THYROID: Thyroid normal Chest: COMMONS NORMALS: normal inspection of the chest Cardio: COMMON NORMALS: no JVD, regular rate, regular rhythm, S1 normal heart sound present, S2 normal heart sound present and No gallops present (Cardio) RATE: regular rate RHYTHM: regular rhythm HEART SOUNDS: S1 normal heart sound present and S2 normal heart sound present GI: COMMON NORMALS: Normal to inspection, nondistended, normoactive bowel sounds present, Soft to palpation, non-tender and No hepatosplenomegaly present PALPATION: Yes Soft to palpation and Yes No hepatosplenomegaly present Back/Pelvis: THORACIC SPINE/UPPER BACK: Yes thoracic spinal tenderness and Yes paraspinal muscle tenderness LUMBAR SPINE/LOWER BACK: Yes lumbar spinal tenderness and Yes paraspinal muscle tenderness Extremity: NARRATIVE EXTREMITY EXAM: Bilateral lower extremity edema with compression garments on Neuro: COMMON NORMALS: patient oriented x3, CN's II-XII intact bilaterally, moves all extremities, no focal motor deficits and no sensory deficits noted SENSORIUM/ORIENTATION: Yes alert MENINGEAL SIGNS: Yes no meningeal signs Psych: COMMON NORMALS: mental status grossly normal, Normal thought process present, cooperative, normal affect and speech normal SPEECH: Yes normal speech THOUGHT PROCESS: Normal thought process present Course ED course: Patient presents to the ER with complaints of fall spine pain and headache. Patient does not member the fall. Patient is on home [place]. Patient was given 1 [place] 5 for head pain while we were under taking her x-rays of her thoracic and lumbar spine as well as her CT of her head. When the radiologist read the CT of her head he called and said she had a 9 mm acute subdural hematoma with no mass effect or no shift. We called [facility] in [place] ER Dr. Grant who accepted in transfer. Patient will go by ground. Patient is intact neurologically. Vital Signs: Vital signs: Vital Signs Temperature 98.7 F 08/01/22 12:02 Pulse Rate 82 08/01/22 13:37 Respiratory Rate 16 08/01/22 15:20 Blood Pressure 189/96 08/01/22 13:37 Pulse Oximetry 92 08/01/22 15:20 Oxygen Delivery Me thod 08/01/22 13:37 MDM - Fall Medical Decision Making Patient had a fall this morning at the correction that she does not remember. She remembers being on the ground and having a lot more spine pain and head pain. Patient is not for sure if she was knocked out or lost consciousness. Patient is on aspirin and Plavix as a blood thinner. Patient currently is neurologically intact with no neurodeficits. Radiology called and said patient has a 9 mm subdural hematoma with no midline shift or mass effect. Patient stabilized to our capabilities in this facility, patient will be transferred to [facility] in [facility] due to lack of trauma support in his hospital. Dr. Grant in the ER at [facility] was called, the patient was discussed with and he accepted the patient in transfer. . Differential Diagnosis Likely concussion with loss of consciousness Medical Records I reviewed the patient's medical records. Lab Data I reviewed the patient's lab results. 08/01/22 14:10 08/01/22 14:[address] 08/01/22 12:12 IMPRESSION: There is a 9 mm acute parafalcine subdural hematoma along the left side of the anterior falx. No significant mass effect or edema. ADDENDUM: 08/01/22 [id number] THIS REPORT CONTAINS FINDINGS THAT MAY BE CRITICAL TO PATIENT CARE. The findings were verbally communicated via telephone conference with Lucio Shaw at 1:24 PM CAR FRAMER on 08/01/2022. The findings were acknowledged and understood. Lumbar Spine X-Ray 08/01/22 12:12 IMPRESSION: No acute abnormality is seen in the lumbar spine. Thoracic Spine X-Ray 08/01/22 12:12 IMPRESSION: No acute bony abnormality. Laboratory Results WBC 5.1 10^3/uL (4.0-10.0) 08/01/22 14:10 RBC 3.46 10^6/uL (4.1-5.3) L 08/01/22 14:10 Hgb 11.1 g/dL (11.5-15.3) L 08/01/22 14:10 Hct 36.3 % (37.0-47.0) L 08/01/22 14:10 MCV 104.9 fl (81-99) H 08/01/22 14:10 MCH 32.1 pg (28.0-34.0) 08/01/22 14:10 MCHC 30.6 g/dL (30.0-36.0) 08/01/22 14:10 RDW 14.1 % (12.1-15.1) 08/01/22 14:10 Plt Count 70 10^3/cmm (130-400) L 08/01/22 14:10 MPV 10.5 fL (7.4-10.4) H 08/01/22 14:10 Neut % (Auto) 69.9 % 08/01/22 14:10 Lymph % (Auto) 11.4 % 08/01/22 14:10 [place] % (Auto) 9.6 % 08/01/22 14:10 Eos % (Auto) 7.9 % 08/01/22 14:10 Baso % (Auto) 0.4 % 08/01/22 14:10 Neut # (Auto) 3.55 10^3/uL (1.8-7.7) 08/01/22 14:10 Lymph # (Auto) 0.6 10^3/uL (0.8-4.8) L 08/01/22 14:10 [place] # (Auto) 0.5 10^3/uL (0.2-0.9) 08/01/22 14:10 Eos # (Auto) 0.4 10^3/uL (0.0-0.8) 08/01/22 14:10 Baso # (Auto) 0.0 10^3/uL (0.0-0.1) 08/01/22 14:10 Nucleated RBC % (auto) 0 % 08/01/22 14:10 Nucleated RBCs # 0.0 /100WBC 08/01/22 14:10 PT 16.20 SECONDS (12.1-14.9) H 08/01/22 14:10 INR 1.26 (0.8-1.2) H 08/01/22 14:10 Sodium 138 mmol/L (136-145) 08/01/22 14:10 Potassium 4.0 mmol/L (3.5-5.1) 08/01/22 14:10 Chloride 103 mmol/L (98-107) 08/01/22 14:10 Carbon Dioxide 24 mmol/L (22-29) 08/01/22 14:10 Anion Gap 15.0 (5-19) 08/01/22 14:10 BUN 10 mg/dL (8-23) 08/01/22 14:10 Creatinine 0.8 mg/dL (0.5-0.9) 08/01/22 14:10 GFR Calculation Not Reportable 08/01/22 14:10 Glucose 88 mg/dL (65-115) 08/01/22 14:10 Calculated Osmolality 284 mOsm/kg (285-295) L 08/01/22 14:10 Calcium 8.8 mg/dL (8.5-10.5) 08/01/22 14:10 Total Bilirubin 1.2 mg/dL (0.15-1.2) 08/01/22 14:10 AST 29 U/L (0-32) 08/01/22 14:10 ALT 14 U/L (0-33) 08/01/22 14:10 Alkaline Phosphatase 121 U/L (35-105) H 08/01/22 14:10 Total Protein 7.0 g/dL (6.6-8.7) 08/01/22 14:10 Albumin 2.9 g/dL (3.5-5.2) L 08/01/22 14:10 Globulin 4.1 g/dL (1.3-4.6) 08/01/22 14:10 EKG Data EKG 1: I personally reviewed and interpreted this EKG as follows: EKG interpretation date: 08/01/22 EKG interpretation time: 12:06 Interpretation: EKG on August 01, 2022 at 1206 showed supraventricular rhythm with ventricular rate of 77 bpm p possible inferior [place], probable old, Q waves in 2 and aVF,, QRS duration 105 QT interval of 371 Discharge Plan Discharge Patient Disposition: Transfer to ED Clinical Impression: Subdural hematoma, acute, Anticoagulated, Lumbar spine pain, Pain in thoracic spine Condition: Stable Prescriptions: No Action alprazolam 0.25 mg tablet 0.25 mg PO BID@08,20 magnesium hydroxide [Milk of Magnesia] 400 mg/5 mL suspension 30 ml PO Q24H PRN (Reason: Constipation) fluticasone propionate 50 mcg/actuation spray,suspension 1 spray intranasal BID@09,21 Rx Instructions: administer into each nostril fexofenadine-pseudoephedrine [Nichole-D 24 Hour] 180-240 mg tablet extended release 24 hr 1 tab PO DAILY@08 sertraline 25 mg tablet 25 mg PO DAILY@07 Xtampza ER 18 mg cap,sprinkl,ER12hr(DONT CRUSH) 18 mg PO BID@08,20 Rx Instructions: must administer with a meal/food polyethylene glycol 3350 [Miralax] 17 gram/dose powder 17 gm PO .EVERY 2 DAYS Rx Instructions: hold for loose stools furosemide [Lasix] 20 mg tablet 20 mg PO DAILY@08 hydrocodone-acetaminophen 5-325 mg tablet 1 tab PO Q4H PRN (Reason: Pain) allopurinol 100 mg tablet 200 mg PO DAILY@08 nitrofurantoin monohyd/m-cryst [Macrobid] 100 mg capsule 100 mg PO BID Qty: 60 2RF Rx Instructions: must administer with a meal/food solifenacin [Vesicare] 5 mg tablet 5 mg PO DAILY Qty: 30 12RF bisacodyl 10 mg Suppository 10 mg [place] DAILY PRN (Reason: Constipation) carvedilol 6.25 mg tablet 6.25 mg PO BID@08,20 30 Days Qty: 60 3RF lisinopril 40 mg tablet 40 mg PO DAILY 30 Days Qty: 30 3RF atorvastatin 40 mg Tablet 40 mg PO BEDTIME 30 Days Qty: 30 3RF aspirin 81 mg Tablet,Delayed Release (Dr/Ec) 81 mg PO DAILY 30 Days Qty: 30 3RF Plavix 75 mg tablet 75 mg PO DAILY 30 Days Qty: 30 3RF Klor-Con M20 20 mEq tablet,ER particles/crystals 20 meq PO DAILY Qty: 30 0RF multivitamin Tablet 1 tab PO DAILY@07 gabapentin 600 mg Tablet 600 mg PO TID@0700,1430,2000 albuterol sulfate 2.5 mg /3 mL (0.083 %) Solution For Nebulization 2.5 mg INHALATION Q4H PRN (Reason: Shortness Of Breath) ondansetron HCl 4 mg Tablet 4 mg PO Q4H PRN (Reason: Nausea And Vomiting) sennosides-docusate sodium [Stool Softener-Laxative] 8.6-50 mg Tablet 2 tab PO BID@08,20 levothyroxine 25 mcg tablet 25 mcg PO DAILY@06 pantoprazole 40 mg Tablet,Delayed Release (Dr/Ec) 40 mg PO BID Bwrpb-Tt-Nyu Enema 19-7 gram/118 mL Enema 118 ml [place] DAILY PRN (Reason: Constipation) tobramycin-dexamethasone 0.3-0.1 % drops,suspension 1 drp ophthalmic (eye) BID@08,20 Rx Instructions: right eye cyclobenzaprine 5 mg Tablet 5 mg PO Q8H PRN (Reason: Muscle Pain) Referrals: Sudheer Wood MD [Primary Care Provider] - Coding Level of Care Code ED Infrastructure Consultant for Paramjit Low
[2022-08-01] MEDS: HYDROcodone-acetaminophen 5-325 mg Tablet 1 TAB PO (12:20)
[2022-08-01 12:37] VITALS: PULSE 78; O2SAT 95
[2022-08-01 13:37] VITALS: BP 189/96; PULSE 82; RESP 18; O2SAT 92
[2022-08-01 14:33] LABS: Basophils % 0.4 %; Eosinophils # 0.4 10^3/uL (0.0-0.8); Eosinophils % 7.9 %; Hematocrit 36.3 % (37.0-47.0); Hemoglobin 11.1 g/dL (11.5-15.3); Lymphocytes # 0.6 10^3/uL (0.8-4.8); Lymphocytes % 11.4 %; Mean Corpuscular HGB Conc 30.6 g/dL (30.0-36.0); Mean Corpuscular Hemoglobin 32.1 pg (28.0-34.0); Mean Corpuscular Volume 104.9 fl (81-99); Mean Platelet Volume 10.5 fL (7.4-10.4); Monocytes # 0.5 10^3/uL (0.2-0.9); Monocytes % 9.6 %; Neutrophils # 3.55 10^3/uL (1.8-7.7); Neutrophils % 69.9 %; Nucleated Red Blood Cells % 0 %; Platelet Count 70 10^3/cmm (130-400); Red Blood Count 3.46 10^6/uL (4.1-5.3); Red Cell Distribution Width 14.1 % (12.1-15.1); White Blood Count 5.1 10^3/uL (4.0-10.0)
[2022-08-01 15:01] LABS: Alanine Aminotransferase 14 U/L (0-33); Albumin Level 2.9 g/dL (3.5-5.2); Alkaline Phosphatase 121 U/L (35-105); Aspartate Amino Transferase 29 U/L (0-32); Blood Urea Nitrogen 10 mg/dL (8-23); Calcium 8.8 mg/dL (8.5-10.5); Carbon Dioxide 24 mmol/L (22-29); Chloride 103 mmol/L (98-107); Creatinine Clr Calc Pharmacy 56.7868; Globulin 4.1 g/dL (1.3-4.6); Glucose 88 mg/dL (65-115); INR 1.26 (0.8-1.2); Osmolality Calculated 284 mOsm/kg (285-295); Sodium 138 mmol/L (136-145); Total Bilirubin 1.2 mg/dL (0.15-1.2)
[2022-08-01 15:20] VITALS: RESP 16; O2SAT 92
[2022-08-01] MEDS: morphine 4 mg/mL SDV 1 mL IVP (15:20)
== END 2022-08-01 15:28 ==
PROVIDERS: Emergency Provider Emergency Medicine; PCP Internal Medicine
DX: S06.5X0A Traumatic subdural hemorrhage without loss of consciousness, initial encounter (principal); M54.6 Pain in thoracic spine; M54.50 Low back pain, unspecified; I25.10 Atherosclerotic heart disease of native coronary artery without angina pectoris; E11.51 Type 2 diabetes mellitus with diabetic peripheral angiopathy without gangrene; E11.42 Type 2 diabetes mellitus with diabetic polyneuropathy; I10 Essential (primary) hypertension; E03.9 Hypothyroidism, unspecified; I25.2 Old myocardial infarction; D69.6 Thrombocytopenia, unspecified; Z79.82 Long term (current) use of aspirin; Z79.02 Long term (current) use of antithrombotics/antiplatelets; W01.0XXA Fall on same level from slipping, tripping and stumbling without subsequent striking against object, initial encounter; Y92.129 Unspecified place in nursing home as the place of occurrence of the external cause
CPT/HCPCS: 36415; 70450; 72070; 72100; 80053; 85025; 85610; 96374; 99285; J2270

== ENCOUNTER → 2022-09-01 08:03 | Outpatient (BNVA) | payer MEDICARE, MEDICAID, SELFPAY | PROVIDERS: PCP Internal Medicine; Visit Provider Podiatrist Foot & Ankle Surgery | DX: I73.9 Peripheral vascular disease, unspecified (principal); E11.21 Type 2 diabetes mellitus with diabetic nephropathy; M21.41 Flat foot [pes planus] (acquired), right foot; M21.42 Flat foot [pes planus] (acquired), left foot; M20.41 Other hammer toe(s) (acquired), right foot; M20.42 Other hammer toe(s) (acquired), left foot; L60.8 Other nail disorders; L60.3 Nail dystrophy | CPT/HCPCS: 11721 ==

== ENCOUNTER 2022-12-03 14:38 | Outpatient (CLI) | payer MEDICARE, MEDICAID, SELFPAY ==
[2022-12-03 15:05] LABS: Basophils % 0.4 %; Eosinophils # 0.3 10^3/uL (0.0-0.8); Eosinophils % 6.5 %; Hematocrit 32.9 % (37.0-47.0); Hemoglobin 9.8 g/dL (11.5-15.3); Lymphocytes # 0.6 10^3/uL (0.8-4.8); Lymphocytes % 12.5 %; Mean Corpuscular HGB Conc 29.8 g/dL (30.0-36.0); Mean Corpuscular Volume 104.1 fl (81-99); Mean Platelet Volume 10.3 fL (7.4-10.4); Monocytes # 0.8 10^3/uL (0.2-0.9); Monocytes % 16.8 %; Neutrophils # 2.94 10^3/uL (1.8-7.7); Neutrophils % 63.4 %; Nucleated Red Blood Cells % 0 %; Platelet Count 109 10^3/cmm (130-400); Red Blood Count 3.16 10^6/uL (4.1-5.3); Red Cell Distribution Width 14.2 % (12.1-15.1); White Blood Count 4.6 10^3/uL (4.0-10.0)
== END 2022-12-03 14:39 | disposition home or self-care (01) ==
LOC: LAB 14:39
PROVIDERS: PCP Internal Medicine; Visit Provider Nurse Practitioner Family
DX: Z86.73 Personal history of transient ischemic attack (TIA), and cerebral infarction without residual deficits (principal)
CPT/HCPCS: 85025

== ENCOUNTER 2022-12-04 08:11 | Outpatient (CLI) | payer MEDICARE, MEDICAID, SELFPAY ==
[2022-12-04 08:59] LABS: NT Pro B Type Natriuretic Pept 400 pg/mL (0-450)
== END 2022-12-04 08:12 | disposition home or self-care (01) ==
PROVIDERS: PCP Internal Medicine; Visit Provider Nurse Practitioner Family
DX: Z86.73 Personal history of transient ischemic attack (TIA), and cerebral infarction without residual deficits (principal)
CPT/HCPCS: 83880

== ENCOUNTER → 2022-12-09 10:18 | Outpatient (BNVA) | payer MEDICARE, MEDICAID, SELFPAY | PROVIDERS: PCP Internal Medicine; Visit Provider Podiatrist Foot & Ankle Surgery | DX: I73.9 Peripheral vascular disease, unspecified (principal); E11.21 Type 2 diabetes mellitus with diabetic nephropathy; M21.41 Flat foot [pes planus] (acquired), right foot; M21.42 Flat foot [pes planus] (acquired), left foot; M20.41 Other hammer toe(s) (acquired), right foot; M20.42 Other hammer toe(s) (acquired), left foot; L60.8 Other nail disorders; L60.3 Nail dystrophy | CPT/HCPCS: 11721 ==

== ENCOUNTER 2023-03-23 06:04 | Inpatient (IN) | payer MEDICARE, MEDICAID, SELFPAY ==
[2023-03-23] VITALS (9 sets, daily range): BP systolic 91–153; BP diastolic 51–87; PULSE 89–116; RESP 15–26; TEMP 36.8–39; O2SAT 92–99; BMI 34.5
--- NOTE | 2023-03-23 06:08 | XRR_ITS ---
PROCEDURE INFORMATION: Exam: XR Chest Exam date and time: 03/23/2023 6:53 AM Age: 83 years old Clinical indication: Cough and dyspnea; Additional info: Dyspnea/cough TECHNIQUE: Imaging protocol: Radiologic exam of the chest. Views: 1 view. COMPARISON: CR (CHEST, ) 07/02/2022 11:40 PM FINDINGS: Lungs: Dense consolidation in the left lung base may be consistent with pneumonia. Pleural spaces: Blunting of the costophrenic angles more prominent on the left versus the right may be consistent with pleural effusions. Heart/Mediastinum: The cardiomediastinal silhouette is enlarged, also partially exaggerated due to patient rotation. Bones/joints: Unremarkable. XR/XR chest 1V portable [id number] IMPRESSION: 1. The cardiomediastinal silhouette is enlarged, also partially exaggerated due to patient rotation. 2. Dense consolidation in the left lung base may be consistent with pneumonia. 3. Blunting of the costophrenic angles more prominent on the left versus the right may be consistent with pleural effusions.
--- NOTE | 2023-03-23 06:08 | ECG_ITS ---
[facility] Test Date: 2023-03-23 Pat Name: Daksha Machuca Department: Room: Gender: Female Informatics Scientist: : 1940 Requested By: Jamie Millan Order Number: [id number] Magalys MD: Aretha Owens M.D. Measurements Intervals Felt Rate: 112 P: 0 ID: [id number] QRS: 66 QRSD: 90 T: -36 QT: 316 QTc: 432 Interpretive Statements SINUS TACHYCARDIA NONSPECIFIC T-WAVE ABNORMALITY Compared to ECG 07/03/2022 01:39:36 T-wave abnormality now present Sinus rhythm no longer present Electronically Signed On 03-23-2023 8:26:03 CDT by Aretha Owens M.D. [id number]
--- NOTE | 2023-03-23 06:09 | W.ED.GENADLT ---
HPI - General Adult General: Chief complaint: Fever Stated complaint: doesn't feel well Time Seen by Provider: 03/23/23 06:07 Source: patient Mode of arrival: ambulatory History of Present Illness: 83-year-old female resident of [facility] brought in by EMS with complaint of a fever. Has not been feeling well for the last several days she tells me that he started her on medication but she is not sure what exactly it was. She has had a fever nonproductive cough and diarrhea. She is awake and alert. She is normally on 2 L by nasal cannula and she is maintaining her oxygen saturations on that on arrival here temp is 102 to 3 L by nasal cannula. Onset (ago): minute(s) Severity: mild Relieving factors: none Exacerbating factors: none Associated symptoms: Deny chest pain, dyspnea or rash Review of Systems Const: Denies: fever(s) or chills Card: Denies: chest pain Resp: Denies: dyspnea GI: Denies: abdominal pain : Denies: dysuria, urinary frequency or urinary urgency Musc: Denies: neck pain or back pain Skin/Breast: Denies: rash PFSH ED PFSH: Medical History Acute UTI Altered mental status CAD in [place] artery Chronic back pain Chronic cystitis Confusion Cystitis cystica Diabetes GERD (gastroesophageal reflux disease) Gout History of CVA (cerebrovascular accident) History of diabetes mellitus Hypertension Hypothyroidism Non-ST elevation [place] (NSTEMI) Osteoarthritis Peripheral artery disease Polyneuropathy Post herpetic neuralgia Retained ureteral stent Thrombocytopenia Urolithiasis Surgical History H/O bladder repair surgery H/O: hysterectomy Hip fracture History of cataract surgery History of cholecystectomy S/P tonsillectomy Family History Other Renal cancer Social History Smoking and tobacco/nicotine status: never used tobacco/nicotine Alcohol intake: never Substance/Drug Use: never Adopted: No Caregiver/support person: No Lives independently: No Housing: [facility] Marital status: Current occupational status: retired Current gender identity: Female Physical Exam Const: GENERAL APPEARANCE: cooperative and comfortable ORIENTATION/CONSCIOUSNESS: Yes awake, Yes oriented to person, Yes oriented to place and Yes oriented to time HENMT: COMMON NORMALS: normocephalic, atraumatic and hearing grossly normal bilaterally HEAD & SCALP: normocephalic and atraumatic Resp: COMMON NORMALS: normal respiratory effort, No retractions and No use of accessory muscles AUSCULTATION: crackles Laterality: left (Lower) Cardio: COMMON NORMALS: regular rate, regular rhythm and No murmurs present (Cardio) RATE: regular rate RHYTHM: regular rhythm GI: COMMON NORMALS: Soft to palpation and No hepatosplenomegaly present AUSCULTATION: Yes normoactive bowel sounds PALPATION: Yes Soft to palpation, No Tenderness to palpation present (GI), No Guarding due to palpation present (GI) and Yes No hepatosplenomegaly present Extremity: COMMON NORMALS: normal to inspection, capillary refill normal, no clubbing, cyanosis or edema, no calf tenderness and no pedal edema Neuro: SENSORIUM/ORIENTATION: Yes oriented to person, Yes oriented to place and Yes oriented to time Skin: COMMON NORMALS: no rashes or lesions noted GENERAL SKIN EXAM: no rashes or lesions noted Course Vital Signs: Vital signs: Vital Signs Temperature 102.2 F H 03/23/23 06:05 Pulse Rate 113 H 03/23/23 06:56 Respiratory Rate 18 03/23/23 06:56 Blood Pressure 153/87 03/23/23 06:56 Pulse Oximetry 97 03/23/23 06:56 Oxygen Delivery Me thod Room Air 03/23/23 06:56 Oxygen Flow Rate 2 03/23/23 06:39 MDM - General Adult Medical Decision Making Left lower lobe pneumonia and cystitis vital signs stable we will admit to [facility] floor multiple antibiotic allergies listed although the allergy Effexor not listed restrained get those from the [facility] since she has so many different classes listed. We will start her on meropenem for now discussed with hospitalist orders written. Medical Records I reviewed the patient's medical records. Lab Data I reviewed the patient's lab results. 03/23/23 06:00 03/23/23 06:46 Radiology Impressions Chest X-Ray 03/23/23 06:08 IMPRESSION: 1. The cardiomediastinal silhouette is enlarged, also partially exaggerated due to patient rotation. 2. Dense consolidation in the left lung base may be consistent with pneumonia. 3. Blunting of the costophrenic angles more prominent on the left versus the right may be consistent with pleural effusions. Laboratory Results WBC 6.21 10^3/uL (3.29-11.43) 03/23/23 06:00 RBC 3.06 10^6/uL (3.85-5.65) L 03/23/23 06:00 Hgb 9.40 g/dL (11.27-16.99) L 03/23/23 06:00 Hct 30.9 % (36-47) L 03/23/23 06:00 MCV 101.0 fl (85-98) H 03/23/23 06:00 MCH 30.7 pg (27-33) 03/23/23 06:00 MCHC 30.4 g/dL (30-55) 03/23/23 06:00 RDW 15.5 % (12.1-15.1) H 03/23/23 06:00 Plt Count 100 10^3/cmm (157-399) L 03/23/23 06:00 MPV 11.8 fL (7.4-10.4) H 03/23/23 06:00 Neut % (Auto) 82.2 % 03/23/23 06:00 Lymph % (Auto) 5.8 % 03/23/23 06:00 [place] % (Auto) 4.2 % 03/23/23 06:00 Eos % (Auto) 6.8 % 03/23/23 06:00 Baso % (Auto) 0.5 % 03/23/23 06:00 Neut # (Auto) 5.11 10^3/uL (1.8-7.7) 03/23/23 06:00 Lymph # (Auto) 0.4 10^3/uL (0.8-4.8) L 03/23/23 06:00 [place] # (Auto) 0.3 10^3/uL (0.2-0.9) 03/23/23 06:00 Eos # (Auto) 0.4 10^3/uL (0.0-0.8) 03/23/23 06:00 Baso # (Auto) 0.0 10^3/uL (0.0-0.1) 03/23/23 06:00 Nucleated RBC % (auto) 0 % 03/23/23 06:00 Nucleated RBCs # 0.0 /100WBC 03/23/23 06:00 Sodium 141 mmol/L (136-145) 03/23/23 06:46 Potassium 3.9 mmol/L (3.5-5.1) 03/23/23 06:46 Chloride 107 mmol/L (98-107) 03/23/23 06:46 Carbon Dioxide 27 mmol/L (22-29) 03/23/23 06:46 Anion Gap 10.9 (5-19) 03/23/23 06:46 BUN 10 mg/dL (8-23) 03/23/23 06:46 Creatinine 0.7 mg/dL (0.5-0.9) 03/23/23 06:46 GFR Calculation Not Reportable 03/23/23 06:46 Glucose 95 mg/dL (65-115) 03/23/23 06:46 Calculated Osmolality 291 mOsm/kg (285-295) 03/23/23 06:46 Lactic Acid 1.6 mmol/L (0.5-2.2) 03/23/23 06:51 Calcium 8.2 mg/dL (8.5-10.5) L 03/23/23 06:46 Total Bilirubin 1.1 mg/dL (0.15-1.2) 03/23/23 06:46 AST 21 U/L (0-32) 03/23/23 06:46 ALT 10 U/L (0-33) 03/23/23 06:46 Alkaline Phosphatase 116 U/L (35-105) H 03/23/23 06:46 Total Protein 6.4 g/dL (6.6-8.7) L 03/23/23 06:46 Albumin 2.8 g/dL (3.5-5.2) L 03/23/23 06:46 Globulin 3.6 g/dL (1.3-4.6) 03/23/23 06:46 Urine Color Yellow (Yellow) 03/23/23 06:28 Urine Appearance Cloudy (CLEAR) A 03/23/23 06:28 Urine pH 7 (5-7) 03/23/23 06:28 Ur Specific [place] 1.010 (1.005-1.030) 03/23/23 06:28 Urine Protein Neg (Negative) 03/23/23 06:28 Urine Glucose (UA) Norm (Normal) 03/23/23 06:28 Urine Ketones 1+ (Negative) H 03/23/23 06:28 Urine Blood 3+ (Negative) H 03/23/23 06:28 Urine Nitrate Positive (Negative) H 03/23/23 06:28 Urine Bilirubin Neg (Negative) 03/23/23 06:28 Urine Urobilinogen Neg mg/dL (Negative) 03/23/23 06:28 Ur Leukocyte Esterase 2+ (Negative) H 03/23/23 06:28 Urine RBC 10-15 /hpf (0-2) H 03/23/23 06:28 Urine WBC 40-55 /hpf (0-5) H 03/23/23 06:28 Ur Squamous Epith Cells 0-4 /hpf (0-5) H 03/23/23 06:28 Amorphous Sediment Not Reportable 03/23/23 06:28 Urine Bacteria 3+ /hpf (NONE) H 03/23/23 06:28 Influenza Type A Ag Negative (Negative) 03/23/23 06:26 Influenza Type B Ag Negative (Negative) 03/23/23 06:26 All radiology interpretation(s) finalized by discharge Discharge Plan Discharge Patient Disposition: Admitted As Inpatient Clinical Impression: Left lower lobe pneumonia, Cystitis Condition: Stable Coding Level of Care Code ED Golf Course Ranger for Paramjit Low
--- NOTE | 2023-03-23 06:17 | PC.NURSE ---
Dr Gamino gave this nurse verbal order to put in order for 1,000mg acetaminophen PO once. Order put in.
[2023-03-23 06:18] LABS: Basophils % 0.5 %; Eosinophils # 0.4 10^3/uL (0.0-0.8); Eosinophils % 6.8 %; Hematocrit 30.9 % (36-47); Lymphocytes # 0.4 10^3/uL (0.8-4.8); Lymphocytes % 5.8 %; Mean Corpuscular HGB Conc 30.4 g/dL (30-55); Mean Corpuscular Hemoglobin 30.7 pg (27-33); Mean Platelet Volume 11.8 fL (7.4-10.4); Monocytes # 0.3 10^3/uL (0.2-0.9); Monocytes % 4.2 %; Neutrophils # 5.11 10^3/uL (1.8-7.7); Neutrophils % 82.2 %; Nucleated Red Blood Cells % 0 %; Platelet Count 100 10^3/cmm (157-399); Red Blood Count 3.06 10^6/uL (3.85-5.65); Red Cell Distribution Width 15.5 % (12.1-15.1); White Blood Count 6.21 10^3/uL (3.29-11.43)
[2023-03-23] MEDS: acetaminophen 500 mg Tablet 1000 MG PO (06:23)
[2023-03-23 07:22] LABS: Alanine Aminotransferase 10 U/L (0-33); Albumin Level 2.8 g/dL (3.5-5.2); Alkaline Phosphatase 116 U/L (35-105); Anion Gap 10.9 (5-19); Aspartate Amino Transferase 21 U/L (0-32); Blood Urea Nitrogen 10 mg/dL (8-23); Calcium 8.2 mg/dL (8.5-10.5); Carbon Dioxide 27 mmol/L (22-29); Chloride 107 mmol/L (98-107); Creatinine Clr Calc Pharmacy 49.9762; Globulin 3.6 g/dL (1.3-4.6); Glucose 95 mg/dL (65-115); Osmolality Calculated 291 mOsm/kg (285-295); Potassium 3.9 mmol/L (3.5-5.1); Sodium 141 mmol/L (136-145); Total Bilirubin 1.1 mg/dL (0.15-1.2); Total Protein 6.4 g/dL (6.6-8.7)
[2023-03-23 07:23] LABS: Lactic Sepsis W/Reflex 1.6 mmol/L (0.5-2.2)
[2023-03-23 07:37] LABS: Blood Urine 3+ (Negative); Glucose Urine UA Norm (Normal); Ketones Urine 1+ (Negative); Protein Urine Neg (Negative); Urine Appearance Cloudy (CLEAR); Urine Color Yellow (Yellow); pH Urine 7 (5-7)
[2023-03-23 07:37] LABS: Influenza A by IFA Negative (Negative); Influenza B by IFA Negative (Negative)
[2023-03-23 07:38] LABS: Add Urine Culture? Yes; Add Urine Microscopic? YES; Bacteria Urine 3+ /hpf; Bilirubin Urine Neg (Negative); Leukocyte Esterase Urine 2+ (Negative); Nitrate Urine Positive (Negative); Squamous Epithelial Cell Urine 0-4 /hpf (0-5); Urobilinogen Urine Neg (Negative); WBC Urine 40-55 /hpf (0-5)
[2023-03-23] MEDS: meropenem 1,000 MG in sodium chloride 0.9% (plus) 50 ML 100 MG IV ×3 (08:26→23:22)
[2023-03-23 08:51] LABS: Adenovirus Not Detected (NOT DETECT); Chlamydia Pneumoniae Not Detected (NOT DETECT); Coronavirus 229E,HKU1,NL63,OC4 Not Detected (NOT DETECT); Human Metapneumovirus Not Detected (NOT DETECT); Human Rhinovirus/Enterovirus Not Detected (NOT DETECT); Influenza A Not Detected (NOT DETECT); Influenza A H1 Not Detected (NOT DETECT); Influenza A H1-2009 Not Detected (NOT DETECT); Influenza A H3 Not Detected (NOT DETECT); Influenza B Not Detected (NOT DETECT); Mycoplasma Pneumoniae Not Detected (NOT DETECT); Parainfluenza Virus Type 1 Not Detected (NOT DETECT); Parainfluenza Virus Type 2 Not Detected (NOT DETECT); Parainfluenza Virus Type 3 Not Detected (NOT DETECT); Parainfluenza Virus Type 4 Not Detected (NOT DETECT); Respiratory Syncytial Virus A Not Detected (NOT DETECT); Respiratory Syncytial Virus B Not Detected (NOT DETECT); SARS-COV-2 Not Detected (NOT DETECT)
--- NOTE | 2023-03-23 08:53 | CT_ITS ---
WS: [id number] CTA CHEST WITH ABDOMEN AND PELVIS TECHNIQUE: Contrast enhanced CTA of the chest, followed by abdomen, and pelvis with coronal and sagit harika reformatted images and additional MIP Images. CLINICAL INFORMATION: Chest pain, possible left pleural effusion, hematuria COMPARISON: None. DLP: 2342.[address] scans at [facility] use at least one of these dose optimization techniques: automated e xposure control; mA and/or kV adjustment per patient size (includes targeted exams where dose is matc hed to clinical indication); or iterative reconstruction. FINDINGS: Proximal main pulmonary arteries are normal. Normal visualized segmental and subsegmental pulmonary a rteries. No evidence of pulmonary embolus. Cardiomegaly. Normal caliber thoracic aorta. No mediastina l or hilar lymphadenopathy. Tiny pericardial effusion. Small LEFT greater than RIGHT pleural effusion s with compressive atelectasis in the lung bases. LEFT pleural effusion has improved compared to 2021. Perihilar interstitial edema. A few patchy perihilar opacities. Round atelectasis in the LEFT upper l obe. Chest wall anasarca. Moderate to advanced thoracic kyphosis with chronic compression T5 ABDOMEN/PELVIS: Cirrhotic liver with intrahepatic biliary ductal dilatation. Prior cholecystectomy. Dilatation of the common bile duct appears stable since 2019. Postoperative changes at the GE junction. Splenomegaly. Multiple varices in the upper abdomen about the spleen. Splenorenal shunt. Adrenal glands are normal. No hydronephrosis. No obstructing renal or ureteral calculi. Contrast visu alized in the bladder on the delayed imaging. Fatty atrophy of the pancreas. Normal caliber abdominal aorta. Extensive diffuse body wall anasarca. Small amount of free fluid in the pelvis. No evidence o f high-grade small or large bowel obstruction. Thoracolumbar scoliosis. Osteopenia. Screw fixation LE FT hip. IMPRESSION: 1. No evidence of pulmonary embolus. 2. Small LEFT greater than RIGHT pleural effusion with compressive atelectasis in the lung bases LEF T greater than RIGHT. 3. Round atelectasis LEFT upper lobe with interstitial edema in the perihilar regions and lower lobe s. 4. Diffuse body wall anasarca. 5. Splenomegaly. 6. Cirrhotic liver with intrahepatic biliary ductal dilatation and stable common bile duct dilatatio n. Prior cholecystectomy. 7. Small amount of free fluid in the pelvis. 8. No hydronephrosis in either kidney. Normal excretion on the delayed images. 9. Splenorenal shunt with splenic varices unchanged.
--- NOTE | 2023-03-23 08:59 | P.HP_ITS ---
Providers/Chief Complaint Admitting Physician: Sudheer Wood MD Primary Care Provider: Sudheer Wood MD Chief Complaint: doesn't feel well History of Present Illness Daksha Machuca is a 83 year old female presenting to the emergency department after transfer from long-term with concerns of elevated temperature, tachycardia. She has had a cough, nonproductive. Normally on 2 L but is now on 3 L. Was having some chills at the nursing facility. Further history is somewhat difficult. She denies any vomiting or diarrhea for me although emergency department does relate loose stools on their evaluation. She reports some discomfort in her left lower chest and left upper abdomen. Review of Systems General: Reports: 10 or more systems reviewed and unremarkable except in HPI and below Card: Reports: chest pain and dyspnea on exertion; Denies: palpitations Resp: Reports: dyspnea and non-productive cough GI: Denies: abdominal pain, nausea, vomiting, hematochezia or melena Medications/Allergies Home Medications Medication Instructions Recorded Confirmed Last Taken Type bisacodyl 10 mg rectal suppository 10 mg SD DAILY PRN Constipation 07/14/19 03/23/23 Unknown History polyethylene glycol 3350 17 17 gm PO Q2D 08/30/19 03/23/23 09/22/21 History gram/dose oral powder (Miralax) fluticasone propionate 50 1 spray intranasal BID@01/09/21 03/23/23 Unknown History mcg/actuation nasal spray,suspension magnesium hydroxide 400 mg/5 mL 30 ml PO Q24H PRN Constipation 01/09/21 03/23/23 Unknown History oral suspension (Milk of Magnesia) sertraline 25 mg tablet 25 mg PO DAILY@08/22/21 03/23/23 Unknown History gabapentin 600 mg tablet 600 mg PO DAILY 09/24/21 03/23/23 Unknown History multivitamin 1 tab PO DAILY@09/24/21 03/23/23 Unknown History ondansetron HCl 4 mg tablet 4 mg PO Q4H PRN Nausea And Vomiting 09/24/21 03/23/23 Unknown History sennosides 8.6 mg-docusate sodium 2 tab PO BID@09/24/21 03/23/23 Unknown History 50 mg tablet (Stool Softener-Laxative) sodium phosphates 19 gram-7 118 ml SD DAILY PRN Constipation 09/24/21 03/23/23 Unknown History gram/118 mL enema (Tztkw-Yu-Qep Enema) aspirin 81 mg tablet,delayed 81 mg PO DAILY 30 days #30 tabs 10/04/21 03/23/23 Unknown Rx release clopidogrel 75 mg tablet (Plavix) 75 mg PO DAILY 30 days #30 tabs 10/04/21 03/23/23 Unknown Rx potassium chloride 20 mEq 20 meq PO DAILY #30 tabs 10/04/21 03/23/23 Unknown Rx tablet,extended release(part/cryst) (Klor-Con M) solifenacin 5 mg tablet (Vesicare) 5 mg PO DAILY #30 tabs 01/06/22 03/23/23 Unknown Rx acetaminophen 325 mg tablet 650 mg PO Q4H PRN Pain 03/23/23 03/23/23 Unknown History calcium carbonate 500 mg calcium 500 mg PO BID 03/23/23 03/23/23 Unknown History (1,250 mg) chewable tablet cocoa butter-shark liver oil 1 supp SD DAILY 03/23/23 03/23/23 Unknown History rectal suppository diclofenac sodium 1 % topical gel 4 g topical QID 03/23/23 03/23/23 Unknown History famotidine 20 mg tablet 20 mg PO BID 03/23/23 03/23/23 Unknown History furosemide 40 mg tablet 40 mg PO DAILY 03/23/23 03/23/23 Unknown History gabapentin 300 mg capsule 300 mg PO BID 03/23/23 03/23/23 Unknown History loperamide 2 mg tablet (Imodium 2 mg PO Q6H PRN Diarrhea 03/23/23 03/23/23 Unknown History A-D) morphine 20 mg/5 mL (4 mg/mL) oral See Rx Instructions .Route 03/23/23 03/23/23 Unknown History solution .COMPLEX PRN Pain nitroglycerin 0.4 mg sublingual 0.4 mg sublingual Q5M PRN Chest 03/23/23 03/23/23 Unknown History tablet (Nitrostat) Pain nystatin 100,000 unit/mL oral See Rx Instructions .Route .COMPLEX 03/23/23 03/23/23 Unknown History suspension Allergies Allergy/AdvReac Type Severity Reaction Status Date / Time amoxicillin Allergy Unknown Verified 03/23/23 10:15 cefepime Allergy Unknown Verified 03/23/23 10:15 ciprofloxacin [From Cipro] Allergy Unknown Verified 03/23/23 10:15 codeine Allergy Unknown Verified 03/23/23 10:15 Influenza Virus Vaccines Allergy Unknown Verified 03/23/23 10:15 iodine Allergy Unknown Verified 03/23/23 10:15 Quinolones Allergy Unknown Verified 03/23/23 10:15 Sulfa (Sulfonamide Allergy Unknown Verified 03/23/23 10:15 Antibiotics) Sulfonylureas Allergy Unknown Verified 03/23/23 10:15 PFSH Acute PFSH: Medical History (Updated 03/23/23 @ 10:52 by Sudheer Wood MD) Acute UTI Altered mental status CAD in [place] Chronic back pain Chronic cystitis Confusion Cystitis cystica Diabetes GERD (gastroesophageal reflux disease) Gout History of CVA (cerebrovascular accident) History of diabetes mellitus Hypertension Hypothyroidism Non-ST elevation UT (NSTEMI) Osteoarthritis Peripheral artery disease Polyneuropathy Post herpetic neuralgia Retained ureteral stent Thrombocytopenia Urolithiasis Surgical History H/O bladder repair surgery H/O: hysterectomy Hip fracture History of cataract surgery History of cholecystectomy S/P tonsillectomy Family History Other Renal cancer Social History Smoking and tobacco/nicotine status: never used tobacco/nicotine Alcohol intake: never Substance/Drug Use: never Adopted: No Caregiver/support person: No Lives independently: No Housing: [facility] Marital status: Current occupational status: retired Current gender identity: Female Vitals/I&O/Wt Last Vital Signs Temp 102.2 F H 03/23/23 06:05 Pulse 115 H 03/23/23 08:47 Resp 18 03/23/23 08:47 BP 153/87 03/23/23 08:47 Pulse Ox 94 03/23/23 08:47 O2 Del Method Room Air 03/23/23 08:47 O2 Flow Rate 2 03/23/23 06:39 Weight last 48 hrs Weight 80.286 kg Physical Exam Narrative: General exam is a white female, with a heart rate of 115 and a temperature of 102.2 on 6 L of oxygen with a sat of 93%. She is conversant, and pleasant HEENT: Atraumatic, normocephalic. Pupils equally round. Oropharynx clear. Neck is supple no lymphadenopathy or thyromegaly Cardiovascular tachycardic, regular, no murmur Lungs clear but with diminished breath sounds left lung. Abdomen is soft. Positive bowel sounds. Slight tenderness left upper quadrant area. No obvious masses. exams deferred Extremities 1+ to 2+ edema bilateral lower extremities Skin no rash Neuro no obvious focal deficits Data 03/23/23 06:00 03/23/23 06:46 Other Labs: Lactic acid is 1.6, calcium 8.2, LFTs normal with exception of alk phos of 116. Baseline troponin is 54. BNP 301. Albumin is 2.8. Urinalysis demonstrates 2+ leukocyte Estrace, 10-15 red blood cells, 40-55 white blood cells, 3+ bacteria COVID is negative as well as flu Chest x-ray reviewed by me demonstrates consolidation left lung base, question effusion CT scan of chest abdomen pelvis which I have ordered demonstrates some anasarca, bilateral pleural effusions right greater than left, splenomegaly, cirrhosis, no evidence of hydronephrosis. 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 Atelectasis/infiltrate with some edema is noted in the perihilar regions and lower lobes EKG which I reviewed demonstrates sinus tachycardia, rate of around 110 with normal axis and nonspecific ST-T wave changes Echo in September 2021 was a difficult study with EF around 60% Micro: Microbiology 03/23/23 06:51 Blood Culture - Preliminary Blood SPECIMEN COLLECTED 03/23/23 06:46 Blood Culture - Preliminary Blood SPECIMEN COLLECTED A&P Assessment and plan (1) Left lower lobe pneumonia: Patient has evidence of pneumonia on chest x-ray, fever. COVID is negative Sputum culture, MRSA PCR will be done Broad-spectrum antibiotics consisting of meropenem, vancomycin CT chest has been completed, which demonstrates atelectasis and or infiltrate as well as some fluid overload. Blood cultures already drawn CBC, CMP in the morning (2) UTI (urinary tract infection): Patient with evidence of UTI Urine culture Meropenem IV will be used secondary to patient's multiple allergies No evidence of obstruction on CT scan which I also reviewed (3) Cirrhosis: Patient has longstanding cirrhosis, with no history of esophageal bleed Her hemoglobin and platelet count is slightly low Continue to monitor closely with daily CBC (4) CAD in [place]: Patient with history of coronary disease. No evidence currently of ongoing discomfort. Baseline troponin was obtained, slightly elevated as expected. (5) Acute diastolic CHF (congestive heart failure): Initiate Lasix 40 mg IV every 12 hours with close follow-up of BMP to monitor for any renal dysfunction Repeat echo will not be needed at this time, but will consider if no improvement Plan Multiple other medical problems as outlined in past medical history Full code Lovenox will be used for DVT prophylaxis Attestations Medical Necessity Statement*: Will need greater than 2 midnight stay for evaluation and treatment of UTI and pneumonia, with higher oxygen requirement and diuresis with acute diastolic heart failure. Diagnoses Left lower lobe pneumonia J18.9 UTI (urinary tract infection) N39.0 Cirrhosis K74.60 CAD in [place] I25.10 Acute diastolic CHF (congestive heart failure) I50.31 Time Spent (min) 55
[2023-03-23 09:26] LABS: Troponin T (5th) Once 54 ng/L (0-10)
[2023-03-23 09:33] LABS: NT Pro B Type Natriuretic Pept 301 pg/mL (0-450)
[2023-03-23] MEDS: iohexol 350 mg/mL 500 mL Btl (per mL) IV (09:47)
[2023-03-23] MEDS: FUROsemide 10 mg/mL SDV 4mL 40 MG IVP ×2 (11:20→22:05)
[2023-03-23] MEDS: pantoprazole DR 40 mg Tablet PO (12:10)
[2023-03-23] MEDS: enoxaparin 40 mg/0.4 mL Syringe SUBCUT (12:10)
--- NOTE | 2023-03-23 12:36 | PC.PHAR ---
Vancomycin: Pharmacy to dose (PolicyStat ID: [id number]) Diagnosis: Pneumonia Dosing requested (target trough- High: 15-20): Calculated dose (rounded): Patient height/weight/age/renal adjusted: 1,000 mg Calculated frequency: q24h Trough values drawn before doses 3-5: 03/26/23 @1200
[2023-03-23] MEDS: vancomycin 1,000 MG in sodium chloride 0.9% 250 ML 250 MG IV (14:08)
[2023-03-23] MEDS: gabapentin 300 mg Capsule PO (17:40)
[2023-03-24] MEDS: acetaminophen 325 mg Tablet 650 MG PO ×2 (01:37→20:12)
[2023-03-24 04:47] VITALS: BP 105/58; PULSE 88; RESP 16; TEMP 36.8; O2SAT 100
[2023-03-24] MEDS: sertraline 50 mg Tablet 25 MG PO (06:01)
[2023-03-24 06:25] LABS: Basophils % 0.2 %; Eosinophils # 0.2 10^3/uL (0.0-0.8); Eosinophils % 3.9 %; Hematocrit 28.9 % (36-47); Lymphocytes # 0.5 10^3/uL (0.8-4.8); Lymphocytes % 9.1 %; Mean Corpuscular HGB Conc 29.4 g/dL (30-55); Mean Corpuscular Hemoglobin 30.8 pg (27-33); Mean Corpuscular Volume 104.7 fl (85-98); Mean Platelet Volume 11.5 fL (7.4-10.4); Monocytes # 0.5 10^3/uL (0.2-0.9); Monocytes % 8.9 %; Neutrophils # 4.35 10^3/uL (1.8-7.7); Neutrophils % 76.3 %; Nucleated Red Blood Cells % 0 %; Platelet Count 63 10^3/cmm (157-399); Red Blood Count 2.76 10^6/uL (3.85-5.65); Red Cell Distribution Width 15.9 % (12.1-15.1)
[2023-03-24 06:43] LABS: Slide Review Slide Review Perform
[2023-03-24 06:47] LABS: Alanine Aminotransferase 11 U/L (0-33); Albumin Level 2.7 g/dL (3.5-5.2); Alkaline Phosphatase 103 U/L (35-105); Anion Gap 12.8 (5-19); Aspartate Amino Transferase 24 U/L (0-32); Blood Urea Nitrogen 16 mg/dL (8-23); Calcium 8.1 mg/dL (8.5-10.5); Carbon Dioxide 26 mmol/L (22-29); Chloride 105 mmol/L (98-107); Globulin 3.3 g/dL (1.3-4.6); Glucose 103 mg/dL (65-115); Magnesium 1.7 mg/dL (1.7-2.3); Osmolality Calculated 291 mOsm/kg (285-295); Potassium 3.8 mmol/L (3.5-5.1); Sodium 140 mmol/L (136-145); Total Bilirubin 1.1 mg/dL (0.15-1.2)
[2023-03-24 07:40] VITALS: BP 101/62; PULSE 77; RESP 18; TEMP 36.3; O2SAT 92
--- NOTE | 2023-03-24 07:54 | P.PN_ITS ---
Documented by User: Zee Bernard 03/24/23 09:30 Subjective Subjective: Today, Mrs. Machuca still reports some shortness of breath but thinks it is improving. She also complains of more aching in her legs than usual. This morning, she said she was finally able to urinate, but had difficulty initiating a urine stream. She also said that sometimes she has trouble swallowing her food and feels like it gets stuck . She is without chest pain, headache. She has minimal abdominal pain but says that this is typical for her as she deals with constipation. All other ROS were negative. Vitals/I&O/Wt Last Vital Signs Temp 97.4 F L 03/24/23 07:40 Pulse 77 03/24/23 07:40 Resp 18 03/24/23 07:40 BP 101/62 03/24/23 07:40 Pulse Ox 92 03/24/23 07:40 O2 Del Method Nasal Cannula 03/24/23 07:40 O2 Flow Rate 6 03/24/23 04:47 03/23/23 03/24/23 03/24/23 22:59 06:59 14:59 Intake Total 640 / 690 650 / 1340 Balance 640 / 690 650 / 1340 Weight last 48 hrs Weight 80.286 kg Physical Exam Narrative: General exam is a white female, with improved heart rate, afebrile, still on 6 L of oxygen via nasal [place]ulla with a sat of 92%. She is conversant, and pleasant HEENT: Atraumatic, normocephalic. Neck is supple Cardiovascular: regular rate and rhythm, no murmur Lungs: still clear but with diminished breath sounds in left lung. Abdomen is soft. Positive bowel sounds. Improved tenderness left upper quadrant area. No obvious masses. Extremities improved edema in bilateral lower extremities. IV site was changed yesterday due to hardening, induration at previous IV site. Area now improved. PICC line was placed in left upper extremity due to minimal peripheral access. Data 03/24/23 05:24 03/24/23 05:24 Other Labs: Magnesium 1.7 LFTs normal BNP yesterday 301 Protein 6, albumin 2.7 MRSA PCR pending Urine Culture: gram negative rods Sputum culture still uncollected Blood culture pending, one culture says negative to date. Micro: Microbiology 03/23/23 06:28 Urine Culture - Preliminary Urine,Clean Catch Gram Negative Rods Gram Negative Rods#2 03/23/23 06:46 Blood Culture - Preliminary Blood NEGATIVE TO DATE 03/24/23 05:24 Blood Culture - Preliminary Blood SPECIMEN COLLECTED 03/24/23 05:24 Blood Culture - Preliminary Blood SPECIMEN COLLECTED 03/23/23 06:51 Blood Culture - Preliminary Blood SPECIMEN COLLECTED A&P Assessment and plan (1) Left lower lobe pneumonia: Patient has evidence of pneumonia on chest x-ray, fever. COVID is negative Sputum culture uncollected but ordered. MRSA PCR pending. Continue Broad-spectrum antibiotics consisting of meropenem, vancomycin Blood cultures pending. One culture is negative to date. will await other re sults. CBC, CMP in the morning (2) UTI (urinary tract infection): Patient with evidence of UTI Urine culture showed gram negative rods. Continue Meropenem IV secondary to patient's multiple allergies (3) Cirrhosis: Patient has longstanding cirrhosis, with no history of esophageal bleed Her hemoglobin and platelet count is slightly low. Hemoglobin went from 9.4 yesterday to 8.5 today. Continue to monitor closely with daily CBC (4) CAD in [place] artery: Patient with history of coronary disease. No evidence currently of ongoing discomfort. Baseline troponin was obtained, slightly elevated as expected. Continue plavix. (5) Acute diastolic CHF (congestive heart failure): Hold Lasix at this time. Edema improved, and kidney function slightly worsened since yesterday. Will consider reinstating in the future. Repeat echo will not be needed at this time, but will consider if no improvement BMP daily to monitor kidney function. Plan Hold Lovenox at this time due to worsened platelet count (63). Multiple other medical problems as outlined in past medical history Full code SCDs will be used for DVT prophylaxis Coding Level of Care Code 94065 Diagnoses Left lower lobe pneumonia J18.9 UTI (urinary tract infection) N39.0 Cirrhosis K74.60 CAD in [place] artery I25.10 Acute diastolic CHF (congestive heart failure) I50.31 Time Spent (min) 28 Documented by User: Sudheer Wood MD 03/24/23 10:34 Subjective Subjective: Today, Mrs. Machuca still reports some shortness of breath but thinks it is improving. She also complains of more aching in her legs than usual. This morning, she said she was finally able to urinate, but had difficulty initiating a urine stream. She also said that sometimes she has trouble swallowing her food and feels like it gets stuck . She is without chest pain, headache. She has minimal abdominal pain but says that this is typical for her as she deals with constipation. All other ROS were negative. Patient was seen in tandem with the medical student. This note was created with them. Medications: Reviewed: Yes Data 03/24/23 05:24 03/24/23 05:24 A&P Assessment and plan (1) Left lower lobe pneumonia: Patient has evidence of pneumonia on chest x-ray, fever. COVID is negative Sputum culture uncollected but ordered. MRSA PCR pending. Continue Broad-spectrum antibiotics consisting of meropenem, vancomycin Blood cultures pending. One culture is negative to date. will await other results. CBC, CMP in the morning. Need to continue to monitor renal function with IV antibiotics, particular vancomycin, with levels as this could cause renal toxicity. (2) UTI (urinary tract infection): Patient with evidence of UTI Urine culture showed gram negative rods, 2 colonies Continue Meropenem IV secondary to patient's multiple allergies (3) Cirrhosis: (4) CAD in [place] artery: (5) Acute diastolic CHF (congestive heart failure): Plan Hold Lovenox at this time due to worsened platelet count (63). Multiple other medical problems as outlined in past medical history Full code SCDs will be used for DVT prophylaxis PICC line in placed secondary to difficulty with blood draws, difficulty with IV access, need for IV antibiotics Attestations Medical Necessity Statement*: Needs continued hospitalization for IV antibiotics related to UTI and pneumonia in this patient still requiring 6 L of oxygen and was febrile 24 hours ago. Diagnoses Left lower lobe pneumonia J18.9 UTI (urinary tract infection) N39.0 Cirrhosis K74.60 CAD in [place] artery I25.10 Acute diastolic CHF (congestive heart failure) I50.31 Time Spent (min) 28
--- NOTE | 2023-03-24 08:24 | XR_ITS ---
WS: [id number] CHEST XRAY TECHNIQUE: Portable chest. CLINICAL INFORMATION: Post PICC insertion COMPARISON: 03/23/2023 FINDINGS: LEFT PICC line with tip in the distal SVC. No pneumothorax. Heart: Cardiomegaly. Lungs: Small LEFT greater than RIGHT pleural effusions. Bibasilar atelectasis. Pulmonary vascular con gestion. Bones: Osteopenia. Thoracolumbar curve. IMPRESSION: LEFT PICC line with tip in the distal SVC. No pneumothorax.
--- NOTE | 2023-03-24 08:40 | PC.NURSE ---
Single lumen PICC placed to left basilic vein. Referred for PICC placement due to poor peripheral access and need for IV Vancomycin. Due to recent infiltration of Vanc in right arm, left arm assessed. Left basilic vein noted to be 3.0 mm, straight, and apparent best choice for placement. Risks and benefits discussed with patient and informed consent obtained. Using sterile technique and MST, left basilic vein accessed x 1 stick. Mid-arm circumference measured 10 cm from left AC 26 cm. Trimmed cath 47 cm with 0 cm external length noted. CXR shows tip in distal SVC, in good position for use per radiologist. Line secured with stat-lock. Insertion site covered with Biopatch and TSM. Report given to bedside nurse, Shun.
[2023-03-24] MEDS: clopidogrel 75 mg Tablet PO (08:44)
[2023-03-24] MEDS: pantoprazole DR 40 mg Tablet PO (08:44)
[2023-03-24] MEDS: gabapentin 300 mg Capsule PO ×2 (08:44→17:15)
[2023-03-24] MEDS: potassium chloride ER 20 mEq Tablet PO (08:44)
[2023-03-24] MEDS: meropenem 1,000 MG in sodium chloride 0.9% (plus) 50 ML 100 MG IV ×2 (09:47→20:11)
[2023-03-24 11:07] VITALS: BP 95/58; PULSE 84; RESP 17; TEMP 36.7; O2SAT 92
--- NOTE | 2023-03-24 11:23 | PC.CHAP ---
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 talent acquisition lead visit [] Patient/Family/Request visit [] Outpatient visit [] Follow-up visit [] Physician referral [] Code/Alert [x] Routine visit [] Staff referral [] Actively dying [] Patient sleeping [] Family support [] [] Out of room [] Palliative care [] [] Receiving care in room [] Pre-surgical visit [] Trauma [] Long length of stay [] ICU visit [] Other: Relational/Emotional Strength [] Patient feels connected with others/family/visitors/staff [] Distress [x] Loneliness/isolation [] Abandonment Spirituality of Patient [] Person of Sujatha [] Attends Pentecostalism of their Sujatha [] Believes in Prayer [] Reads Bible or Caodaism materials [] There are Spiritual issues to be addressed Technical Account Manager Interventions [x] Prayer [] Active listening [] Non-anxious presence [x] Spiritual/emotional support [] Crisis/trauma care [] Spiritual counseling [] Bereavement support [] Provided bereavement packet [] Provided Bible/devotional materials [] Provided toy/stuffed animal, coloring book to patient or family member [] Provided Communion [] Anointing/[place] [] Salvation [] Completed spiritual assessment [] Other: Impact on Illness or Injury [] Angry [] Fearful [] Anxious [] Often cries [] Exhaustion [] Unable to work [] Unable to attend samaritan [] Unable to walk/stand [] Unable to read [] Unable to drive [] Unable to eat/drink [] Unable to sleep [] Unable to be with family [] Patient intubated [] Other: Summary ms rice has a feeling of loneliness. We talked and prayed , Time spent with patient 10 min
[2023-03-24] MEDS: vancomycin 1,000 MG in sodium chloride 0.9% 250 ML 250 MG IV (14:22)
[2023-03-24 15:59] VITALS: BP 116/69; PULSE 92; RESP 18; TEMP 36.9; O2SAT 94
[2023-03-24 19:52] VITALS: BP 121/72; PULSE 92; RESP 17; TEMP 36.9; O2SAT 100
[2023-03-24 23:11] VITALS: BP 125/72; PULSE 92; RESP 16; TEMP 36.9; O2SAT 99
[2023-03-25] MEDS: acetaminophen 325 mg Tablet 650 MG PO ×2 (03:37→21:26)
[2023-03-25 04:04] VITALS: BP 135/63; PULSE 85; RESP 17; TEMP 36.6; O2SAT 100
[2023-03-25] MEDS: sertraline 50 mg Tablet 25 MG PO (06:09)
[2023-03-25 06:16] LABS: Basophils % 0.4 %; Eosinophils # 0.5 10^3/uL (0.0-0.8); Eosinophils % 10.2 %; Hematocrit 27.7 % (36-47); Lymphocytes # 0.5 10^3/uL (0.8-4.8); Lymphocytes % 10.2 %; Mean Corpuscular Hemoglobin 31.3 pg (27-33); Mean Corpuscular Volume 104.5 fl (85-98); Mean Platelet Volume 11.1 fL (7.4-10.4); Monocytes # 0.5 10^3/uL (0.2-0.9); Monocytes % 9.6 %; Neutrophils # 3.24 10^3/uL (1.8-7.7); Neutrophils % 69.2 %; Nucleated Red Blood Cells % 0 %; Platelet Count 66 10^3/cmm (157-399); Red Blood Count 2.65 10^6/uL (3.85-5.65); Red Cell Distribution Width 15.6 % (12.1-15.1); White Blood Count 4.69 10^3/uL (3.29-11.43)
[2023-03-25 06:32] LABS: Alanine Aminotransferase 10 U/L (0-33); Albumin Level 2.5 g/dL (3.5-5.2); Alkaline Phosphatase 95 U/L (35-105); Anion Gap 9.2 (5-19); Aspartate Amino Transferase 21 U/L (0-32); Blood Urea Nitrogen 19 mg/dL (8-23); Carbon Dioxide 27 mmol/L (22-29); Chloride 106 mmol/L (98-107); Globulin 3.3 g/dL (1.3-4.6); Glucose 96 mg/dL (65-115); Magnesium 1.8 mg/dL (1.7-2.3); Osmolality Calculated 288 mOsm/kg (285-295); Potassium 4.2 mmol/L (3.5-5.1); Sodium 138 mmol/L (136-145); Total Bilirubin 0.8 mg/dL (0.15-1.2); Total Protein 5.8 g/dL (6.6-8.7)
[2023-03-25 08:00] VITALS: BP 123/76; PULSE 80; RESP 17; TEMP 36.4; O2SAT 100
[2023-03-25] MEDS: clopidogrel 75 mg Tablet PO (08:10)
[2023-03-25] MEDS: meropenem 1,000 MG in sodium chloride 0.9% (plus) 50 ML 100 MG IV ×2 (08:10→21:26)
[2023-03-25] MEDS: gabapentin 300 mg Capsule PO ×2 (08:10→17:33)
[2023-03-25] MEDS: pantoprazole DR 40 mg Tablet PO (08:10)
--- NOTE | 2023-03-25 08:56 | P.PN_ITS ---
Subjective Subjective: Daksha reports she feels ok but still has some pains all over. Medications: Reviewed: Yes Vitals/I&O/Wt Last Vital Signs Temp 97.5 F L 03/25/23 08:00 Pulse 80 03/25/23 08:00 Resp 17 03/25/23 08:00 BP 123/76 03/25/23 08:00 Pulse Ox 100 03/25/23 08:00 O2 Del Method Nasal Cannula 03/25/23 04:04 O2 Flow Rate 6 03/25/23 04:04 03/24/23 03/25/23 03/25/23 22:59 06:59 14:59 Intake Total 1180 / 2190 300 / 2490 Balance 1180 / 2190 300 / 2490 Physical Exam Narrative: General exam is a white female, no distress. I was able to wean her oxygen down to 3 L Neck is supple Cardiovascular: regular rate and rhythm, no murmur Lungs: still clear but with diminished breath sounds in left lung. Abdomen is soft. Positive bowel sounds. Improved tenderness left upper quadrant area. No obvious masses. Extremities improved edema in bilateral lower extremities. Overall 1+ edema Data 03/25/23 06:04 03/25/23 06:04 Other Labs: Urine growing gram-negative rods. Blood culture negative to date. MRSA PCR pending. Micro: Microbiology 03/24/23 05:24 Blood Culture - Preliminary Blood NEGATIVE TO DATE 03/24/23 05:24 Blood Culture - Preliminary Blood NEGATIVE TO DATE 03/23/23 06:28 Urine Culture - Preliminary Urine,Clean Catch Gram Negative Rods Gram Negative Rods#2 03/23/23 06:46 Blood Culture - Preliminary Blood NEGATIVE TO DATE A&P Assessment and plan (1) Left lower lobe pneumonia: Some of the changes in the left lung are chronic. She had a thoracentesis in September 2021 for this that had no growth. She has compressive atelectasis or pneumonia on that side but also has a UTI which makes plain her fever. COVID is negative MRSA PCR is pending Continue Broad-spectrum antibiotics consisting of meropenem, vancomycin Blood cultures negative today CBC, CMP in the morning. Need to continue to monitor renal function with IV antibiotics, particular vancomycin, with levels as this could cause renal toxicity. If cannot wean oxygen adequately consider thoracentesis, although this may have slightly higher risk as patient is on Plavix and platelet count is low. I have discussed this in detail with the family, and at this point am holding off on thoracentesis. (2) UTI (urinary tract infection): Patient with evidence of UTI Urine culture showed gram negative rods, 2 colonies Continue Meropenem IV secondary to patient's multiple allergies Awaiting ID and sensitivity. (3) Cirrhosis: Patient has longstanding cirrhosis, with no history of esophageal bleed Hemoglobin and platelet count are low but stable Continue to monitor closely with daily CBC (4) CAD in [place] artery: Patient with history of coronary disease. No evidence currently of ongoing discomfort. Baseline troponin was obtained, slightly elevated as expected. Continue plavix. (5) Acute diastolic CHF (congestive heart failure): Currently better compensated. Add low-dose of oral Lasix back. Repeat echo will not be needed at this time, but will consider if no improvement BMP daily to monitor kidney function. Plan Hold Lovenox at this time due to thrombocytopenia Multiple other medical problems as outlined in past medical history Allow natural SCDs will be used for DVT prophylaxis PICC line in placed secondary to difficulty with blood draws, difficulty with IV access, need for IV antibiotics Attestations Medical Necessity Statement*: Needs continued hospitalization for IV antibiotics secondary to UTI. Diagnoses Left lower lobe pneumonia J18.9 UTI (urinary tract infection) N39.0 Cirrhosis K74.60 CAD in [place] artery I25.10 Acute diastolic CHF (congestive heart failure) I50.31 Time Spent (min) 26
[2023-03-25] MEDS: FUROsemide 20 mg Tablet PO (09:49)
[2023-03-25 12:00] VITALS: BP 125/70; PULSE 87; RESP 31; TEMP 36.8; O2SAT 99
[2023-03-25 14:14] LABS: Methicillin-Resist S.aureu PCR NOT DETECTED (NOT DETECTED)
[2023-03-25] MEDS: vancomycin 1,000 MG in sodium chloride 0.9% 250 ML 250 MG IV (15:14)
[2023-03-25 16:00] VITALS: BP 156/79; PULSE 97; RESP 21; TEMP 36.7; O2SAT 93
[2023-03-25 20:00] VITALS: BP 155/79; PULSE 94; RESP 19; TEMP 37; O2SAT 97
[2023-03-25 23:58] VITALS: BP 129/71; PULSE 86; RESP 18; TEMP 37.1; O2SAT 97
[2023-03-26] MEDS: lanolin oint 7 gm 1 APPLIC TOPICAL (00:01)
[2023-03-26] MEDS: acetaminophen 325 mg Tablet 650 MG PO ×2 (02:06→23:04)
[2023-03-26 03:35] VITALS: BP 134/82; PULSE 90; RESP 17; TEMP 36.9; O2SAT 97
[2023-03-26 05:16] LABS: Basophils % 0.4 %; Eosinophils # 0.7 10^3/uL (0.0-0.8); Eosinophils % 15.6 %; Hematocrit 28.1 % (36-47); Lymphocytes # 0.6 10^3/uL (0.8-4.8); Lymphocytes % 13.8 %; Mean Corpuscular HGB Conc 30.2 g/dL (30-55); Mean Corpuscular Hemoglobin 30.7 pg (27-33); Mean Corpuscular Volume 101.4 fl (85-98); Mean Platelet Volume 11.1 fL (7.4-10.4); Monocytes # 0.5 10^3/uL (0.2-0.9); Monocytes % 11.4 %; Neutrophils # 2.62 10^3/uL (1.8-7.7); Neutrophils % 58.4 %; Nucleated Red Blood Cells % 0 %; Platelet Count 80 10^3/cmm (157-399); Red Blood Count 2.77 10^6/uL (3.85-5.65); Red Cell Distribution Width 15.3 % (12.1-15.1); White Blood Count 4.49 10^3/uL (3.29-11.43)
[2023-03-26 05:35] LABS: Alanine Aminotransferase 9 U/L (0-33); Albumin Level 2.4 g/dL (3.5-5.2); Alkaline Phosphatase 94 U/L (35-105); Aspartate Amino Transferase 21 U/L (0-32); Blood Urea Nitrogen 16 mg/dL (8-23); Calcium 8.1 mg/dL (8.5-10.5); Carbon Dioxide 28 mmol/L (22-29); Chloride 106 mmol/L (98-107); Creatinine Clr Calc Pharmacy 49.9762; Globulin 3.8 g/dL (1.3-4.6); Glucose 91 mg/dL (65-115); Osmolality Calculated 293 mOsm/kg (285-295); Sodium 141 mmol/L (136-145); Total Bilirubin 0.9 mg/dL (0.15-1.2); Total Protein 6.2 g/dL (6.6-8.7)
[2023-03-26 05:43] LABS: Anion Gap 11.1 (5-19); Potassium 4.1 mmol/L (3.5-5.1)
[2023-03-26] MEDS: sertraline 50 mg Tablet 25 MG PO (06:41)
[2023-03-26 08:00] VITALS: BP 128/72; PULSE 84; RESP 16; TEMP 37.1; O2SAT 97
[2023-03-26] MEDS: meropenem 1,000 MG in sodium chloride 0.9% (plus) 50 ML 100 MG IV (08:04)
[2023-03-26] MEDS: pantoprazole DR 40 mg Tablet PO (08:05)
[2023-03-26] MEDS: gabapentin 300 mg Capsule PO ×2 (08:05→18:47)
[2023-03-26] MEDS: FUROsemide 20 mg Tablet PO (08:05)
--- NOTE | 2023-03-26 08:14 | USCV_ITS ---
Daksha Machuca Age: 83 Gender: F : 1940 Exam Date: 03/26/2023 17:08 Ordering Phys: Sudheer Wood MD Technologist: ITZEL Exam Location: [facility] – [place] Indication: bacteremia BP: 128 / 72 HR: 88 Rhythm: Sinus Technical Quality: Adequate MEASUREMENTS (Male / Female) Normal Values 2D ECHO LVOT Diameter 2.0 cm LV Ejection Fraction MOD 2C 64.7 % LV Ejection Fraction 2C AL 64.2 % LA Diameter 4.1 cm LA Width 3.5 cm LA Height 5.5 cm RA Width 3.8 cm RA Height 5.2 cm Aorta at Sinotubular Diameter 2.3 cm M-MODE Aortic Annulus Diameter 3.2 cm LA Ao Ratio MM 1.3 MV E Point Septal Separation 0.3 cm DOPPLER AV Peak Velocity 148.7 cm/s LVOT Peak Velocity 125.0 cm/s AV Area Cont Eq vti 2.5 cm squared AV Area Cont Eq pk 2.6 cm squared MV Peak Velocity 146.0 cm/s MV Area PHT 4.1 cm squared Mitral E to A Ratio 0.9 MV E' Velocity 54.5 cm/s Mitral E to MV E' Ratio 9.9 Mitral E to LV E' Lateral Ratio 10.4 Mitral E to LV E' Septal Ratio 9.6 TR Peak Velocity 356.4 cm/s TR Peak Gradient 50.8 mmHg TR Mean Velocity 287.0 cm/s TR Mean Gradient 33.8 mmHg TR Velocity Time Integral 96.0 cm Right Atrial Pressure 8.0 mmHg Pulmonary Artery Systolic Pressu 58.8 mmHg PV Peak Velocity 115.7 cm/s RV Acceleration Time 0.1 s RV Ejection Time 0.3 s RV AcT/ET 0.3 FINDINGS Left Ventricle Normal left ventricular size, systolic function and wall thickness. Left ventricular ejection fraction is estimated at 65 %. There is possible hypokinesis of apical septal, apical inferior and apical diaz. Normal diastolic function. Right Ventricle Normal right ventricular size and systolic function. Right ventricular systolic pressure 58.8 mmHg. Right Atrium Normal right atrial size. Left Atrium Mildly increased left atrial size. Mitral Valve Mild mitral annular calcification. Mildly thickened mitral valve. No mitral valve stenosis. Trace mitral valve regurgitation. Aortic Valve Structurally normal trileaflet aortic valve. No aortic valve stenosis. Trace aortic valve regurgitation. Tricuspid Valve Structurally normal tricuspid valve. No tricuspid valve stenosis. Mild tricuspid valve regurgitation. Pulmonic Valve Structurally normal pulmonic valve. No pulmonary valve stenosis. Trace pulmonary valve regurgitation. Pericardium No pericardial effusion. Aorta Normal size aortic root and proximal ascending aorta. IVC Inferior vena cava not visualized. CONCLUSIONS 1. Normal left ventricular size, systolic function and wall thickness. Left ventricular ejection fraction is estimated at 65 %. There is possible hypokinesis of apical septal, apical inferior and apical diaz. Normal diastolic function. 2. Mild tricuspid valve regurgitation. 3. Severe pulmonary hypertension with pulmonary artery pressure estimated at 59 mm Hg. 4. No significant change when compared to study dated 09/30/21. Aretha Owens MD (Electronically Signed) Final Date: 27 March 2023 09:39 S
[2023-03-26 08:35] LABS: INR 1.24 (0.8-1.2)
--- NOTE | 2023-03-26 09:25 | P.PN_ITS ---
Subjective Subjective: Daksha reports she is doing okay. Does not feel short of breath currently on 2 L of oxygen. No significant pain. Medications: Reviewed: Yes Vitals/I&O/Wt Last Vital Signs Temp 98.7 F 03/26/23 08:00 Pulse 84 03/26/23 08:00 Resp 16 03/26/23 08:00 BP 128/72 03/26/23 08:00 Pulse Ox 97 03/26/23 08:00 O2 Del Method Nasal Cannula 03/26/23 08:00 O2 Flow Rate 2 03/26/23 08:00 03/25/23 03/26/23 03/26/23 22:59 06:59 14:59 Intake Total 540 / 1190 290 / 290 Output Total 1200 / 1200 150 / 1350 Balance -660 / -10 -150 / -160 290 / 290 Physical Exam Narrative: General exam no distress, on 2 L of oxygen Neck is supple Cardiovascular: regular rate and rhythm, no murmur Lungs: Clear but diminished bilaterally Abdomen is soft. Positive bowel sounds. Improved tenderness left upper quadrant area. No obvious masses. Extremities improved edema in bilateral lower extremities. Overall trace edema Data 03/26/23 05:03 03/26/23 05:03 Micro: Microbiology 03/23/23 06:51 Blood Culture - Preliminary Blood Strep agalactiae - (group b) 03/23/23 06:28 Urine Culture - Final Urine,Clean Catch Klebsiella pneumoniae Escherichia coli 03/24/23 05:24 Blood Culture - Preliminary Blood NEGATIVE TO DATE 03/24/23 05:24 Blood Culture - Preliminary Blood NEGATIVE TO DATE A&P Assessment and plan (1) Left lower lobe pneumonia: Some of the changes in the left lung are chronic. She had a thoracentesis in September 2021 for this that had no growth. She has compressive atelectasis or pneumonia on that side but also has a UTI which makes plain her fever. COVID is negative MRSA PCR is pending Blood cultures have come back group B strep. Repeat cultures negative. Consult infectious disease. In my preliminary conversation with infectious disease it appears ceftriaxone will cover all of her urinary organisms as well as her bacteremia. We will initiate this. I have confirmed that although she lists cefepime as an allergy she has received Rocephin in the past without difficulty. Check echocardiogram secondary to bacteremia although this may be low yield considering her body habitus. I do not believe a HAL is indicated at this time. Considering improved respiratory status, and that there is not a significant amount of pleural fluid after my discussion with radiology if thoracentesis is not planned. CBC, CMP in the morning. Plan on awaiting infectious disease consultation, check echocardiogram, further monitoring and possible discharge to the correction on Rocephin via PICC tomorrow (2) UTI (urinary tract infection): Patient with evidence of UTI Urine culture grew Klebsiella and E. coli sensitive to ceftriaxone (3) Cirrhosis: Patient has longstanding cirrhosis, with no history of esophageal bleed Hemoglobin and platelet count are low but stable Continue to monitor closely with daily CBC (4) CAD in [place] artery: Patient with history of coronary disease. No evidence currently of ongoing discomfort. Baseline troponin was obtained, slightly elevated as expected. Continue plavix. (5) Acute diastolic CHF (congestive heart failure): Currently better compensated. Increase Lasix to 40 mg by mouth Echocardiogram being checked secondary to bacteremia BMP daily to monitor kidney function. (6) Bacteremia: Blood culture grew out group B strep. Repeat cultures negative today. Changed to Rocephin IV. Plan Hold Lovenox at this time due to thrombocytopenia Multiple other medical problems as outlined in past medical history Allow natural SCDs will be used for DVT prophylaxis PICC line in placed secondary to difficulty with blood draws, difficulty with IV access, need for IV antibiotics Attestations Medical Necessity Statement*: Needs continued hospitalization for close follow-up with positive blood cultures, changed to ceftriaxone Diagnoses Left lower lobe pneumonia J18.9 UTI (urinary tract infection) N39.0 Cirrhosis K74.60 CAD in [place] artery I25.10 Acute diastolic CHF (congestive heart failure) I50.31 Bacteremia R78.81 Time Spent (min) 24
[2023-03-26] MEDS: clopidogrel 75 mg Tablet PO (11:43)
[2023-03-26] MEDS: cefTRIAXone 1,000 MG in sodium chloride 0.9% (plus) 50 ML 100 MG IV (11:43)
[2023-03-26 11:56] VITALS: BP 147/88; PULSE 85; RESP 17; TEMP 36.7; O2SAT 100
[2023-03-26 15:52] VITALS: BP 139/82; PULSE 87; RESP 16; TEMP 36.9; O2SAT 99
[2023-03-26 20:01] VITALS: BP 150/74; PULSE 87; RESP 16; TEMP 36.8; O2SAT 99
[2023-03-26 23:24] VITALS: BP 154/71; PULSE 89; RESP 15; TEMP 37; O2SAT 98
[2023-03-27] MEDS: ALPRAZolam 0.5 mg Tablet 0.25 MG PO (02:11)
[2023-03-27 04:00] VITALS: BP 148/77; PULSE 86; RESP 19; TEMP 36.6; O2SAT 98
[2023-03-27 05:32] LABS: Basophils % 0.6 %; Eosinophils # 0.7 10^3/uL (0.0-0.8); Eosinophils % 20.3 %; Hematocrit 28.5 % (36-47); Lymphocytes # 0.6 10^3/uL (0.8-4.8); Lymphocytes % 16.6 %; Mean Corpuscular HGB Conc 30.2 g/dL (30-55); Mean Corpuscular Hemoglobin 30.8 pg (27-33); Mean Corpuscular Volume 102.2 fl (85-98); Monocytes # 0.5 10^3/uL (0.2-0.9); Monocytes % 13.1 %; Neutrophils # 1.72 10^3/uL (1.8-7.7); Neutrophils % 49.1 %; Nucleated Red Blood Cells % 0 %; Platelet Count 76 10^3/cmm (157-399); Red Blood Count 2.79 10^6/uL (3.85-5.65); Red Cell Distribution Width 15.2 % (12.1-15.1)
[2023-03-27 06:01] LABS: Alanine Aminotransferase 9 U/L (0-33); Albumin Level 2.4 g/dL (3.5-5.2); Alkaline Phosphatase 89 U/L (35-105); Aspartate Amino Transferase 24 U/L (0-32); Blood Urea Nitrogen 12 mg/dL (8-23); Calcium 7.9 mg/dL (8.5-10.5); Carbon Dioxide 30 mmol/L (22-29); Chloride 106 mmol/L (98-107); Creatinine Clr Calc Pharmacy 49.9762; Globulin 3.7 g/dL (1.3-4.6); Glucose 91 mg/dL (65-115); Osmolality Calculated 291 mOsm/kg (285-295); Sodium 141 mmol/L (136-145); Total Bilirubin 0.9 mg/dL (0.15-1.2); Total Protein 6.1 g/dL (6.6-8.7)
[2023-03-27 06:02] LABS: Anion Gap 8.8 (5-19); Potassium 3.8 mmol/L (3.5-5.1)
[2023-03-27] MEDS: sertraline 50 mg Tablet 25 MG PO (06:28)
[2023-03-27 07:02] VITALS: BP 146/79; PULSE 88; RESP 15; TEMP 36.5; O2SAT 97
--- NOTE | 2023-03-27 07:13 | P.CONIM_ITS ---
Providers/Reason For Consult 2 Attending Physician: Ruddy Hernandez MD Primary Care Provider: Sudheer Wood MD History of Present Illness History of Present Illness Daksha Machuca is a 83 year old female Medications/Allergies Home Medications Medication Instructions Recorded Confirmed Last Taken Type bisacodyl 10 mg rectal suppository 10 mg ID DAILY PRN Constipation 07/14/19 03/23/23 Unknown History polyethylene glycol 3350 17 17 gm PO Q2D 08/30/19 03/23/23 09/22/21 History gram/dose oral powder (Miralax) fluticasone propionate 50 1 spray intranasal BID@01/09/21 03/23/23 Unknown History mcg/actuation nasal spray,suspension magnesium hydroxide 400 mg/5 mL 30 ml PO Q24H PRN Constipation 01/09/21 03/23/23 Unknown History oral suspension (Milk of Magnesia) sertraline 25 mg tablet 25 mg PO DAILY@08/22/21 03/23/23 Unknown History gabapentin 600 mg tablet 600 mg PO DAILY 09/24/21 03/23/23 Unknown History multivitamin 1 tab PO DAILY@07 09/24/21 03/23/23 Unknown History ondansetron HCl 4 mg tablet 4 mg PO Q4H PRN Nausea And Vomiting 09/24/21 03/23/23 Unknown History sennosides 8.6 mg-docusate sodium 2 tab PO BID@09/24/21 03/23/23 Unknown History 50 mg tablet (Stool Softener-Laxative) sodium phosphates 19 gram-7 118 ml ID DAILY PRN Constipation 09/24/21 03/23/23 Unknown History gram/118 mL enema (Lvnha-Yz-Nir Enema) aspirin 81 mg tablet,delayed 81 mg PO DAILY 30 days #30 tabs 10/04/21 03/23/23 Unknown Rx release clopidogrel 75 mg tablet (Plavix) 75 mg PO DAILY 30 days #30 tabs 10/04/21 03/23/23 Unknown Rx potassium chloride 20 mEq 20 meq PO DAILY #30 tabs 10/04/21 03/23/23 Unknown Rx tablet,extended release(part/cryst) (Klor-Con M) solifenacin 5 mg tablet (Vesicare) 5 mg PO DAILY #30 tabs 01/06/22 03/23/23 Unknown Rx acetaminophen 325 mg tablet 650 mg PO Q4H PRN Pain 03/23/23 03/23/23 Unknown History calcium carbonate 500 mg calcium 500 mg PO BID 03/23/23 03/23/23 Unknown History (1,250 mg) chewable tablet cocoa butter-shark liver oil 1 supp ID DAILY 03/23/23 03/23/23 Unknown History rectal suppository diclofenac sodium 1 % topical gel 4 g topical QID 03/23/23 03/23/23 Unknown History famotidine 20 mg tablet 20 mg PO BID 03/23/23 03/23/23 Unknown History furosemide 40 mg tablet 40 mg PO DAILY 03/23/23 03/23/23 Unknown History gabapentin 300 mg capsule 300 mg PO BID 03/23/23 03/23/23 Unknown History loperamide 2 mg tablet (Imodium 2 mg PO Q6H PRN Diarrhea 03/23/23 03/23/23 Unknown History A-D) morphine 20 mg/5 mL (4 mg/mL) oral See Rx Instructions .Route 03/23/23 03/23/23 Unknown History solution .COMPLEX PRN Pain nitroglycerin 0.4 mg sublingual 0.4 mg sublingual Q5M PRN Chest 03/23/23 03/23/23 Unknown History tablet (Nitrostat) Pain nystatin 100,000 unit/mL oral See Rx Instructions .Route .COMPLEX 03/23/23 03/23/23 Unknown History suspension ceftriaxone 1 gram solution for 1 g IM Q24H #12 ea 03/26/23 Unknown Rx injection pantoprazole 40 mg tablet,delayed 40 mg PO DAILY #30 tabs 03/26/23 Unknown Rx release Allergies Allergy/AdvReac Type Severity Reaction Status Date / Time amoxicillin Allergy Unknown Verified 03/23/23 10:15 cefepime Allergy Unknown Verified 03/23/23 10:15 ciprofloxacin [From Cipro] Allergy Unknown Verified 03/23/23 10:15 codeine Allergy Unknown Verified 03/23/23 10:15 Influenza Virus Vaccines Allergy Unknown Verified 03/23/23 10:15 iodine Allergy Unknown Verified 03/23/23 10:15 Quinolones Allergy Unknown Verified 03/23/23 10:15 Sulfa (Sulfonamide Allergy Unknown Verified 03/23/23 10:15 Antibiotics) Sulfonylureas Allergy Unknown Verified 03/23/23 10:15 PFSH Acute 2 PFSH: Medical History (Updated 03/28/23 @ 00:00 by HELEN Gifford) Acute UTI Altered mental status Bacteremia CAD in [place] artery Chronic back pain Chronic cystitis Confusion Cystitis cystica Diabetes GERD (gastroesophageal reflux disease) Gout History of CVA (cerebrovascular accident) History of diabetes mellitus Hypertension Hypothyroidism Non-ST elevation [place] (NSTEMI) Osteoarthritis Peripheral artery disease Polyneuropathy Post herpetic neuralgia Retained ureteral stent Thrombocytopenia Urolithiasis Surgical History H/O bladder repair surgery H/O: hysterectomy Hip fracture History of cataract surgery History of cholecystectomy S/P tonsillectomy Family History Other Renal cancer Social History Smoking and tobacco/nicotine status: never used tobacco/nicotine Alcohol intake: never Substance/Drug Use: never Adopted: No Caregiver/support person: No Lives independently: No Housing: Assisted Marital status: Current occupational status: retired Current gender identity: Female Vitals/I&O/Wt Last Vital Signs Temp 97.8 F 03/27/23 15:26 Pulse 88 03/27/23 15:26 Resp 15 03/27/23 15:26 BP 155/75 03/27/23 15:26 Pulse Ox 100 03/27/23 15:26 O2 Del Method Nasal Cannula 03/27/23 11:37 O2 Flow Rate 2 03/27/23 11:37 Data 03/27/23 05:14 03/27/23 05:14 Micro: Microbiology 03/23/23 06:46 Blood Culture - Final Blood NO GROWTH AFTER 5 DAYS 03/23/23 06:51 Blood Culture - Final Blood Strep agalactiae - (group b) Coding Level of Care Code Acute Code for Chg Fwd Diagnoses
[2023-03-27] MEDS: FUROsemide 40 mg Tablet PO (07:59)
[2023-03-27] MEDS: gabapentin 300 mg Capsule PO (08:00)
[2023-03-27] MEDS: pantoprazole DR 40 mg Tablet PO (08:00)
[2023-03-27] MEDS: clopidogrel 75 mg Tablet PO (08:00)
[2023-03-27] MEDS: acetaminophen 325 mg Tablet 650 MG PO (08:21)
[2023-03-27] MEDS: cefTRIAXone 1,000 MG in sodium chloride 0.9% (plus) 50 ML 100 MG IV (09:28)
[2023-03-27 11:37] VITALS: BP 155/75; PULSE 88; RESP 15; TEMP 36.6; O2SAT 100
--- NOTE | 2023-03-27 13:39 | P.DS_ITS ---
Discharge Providers Date of Admission: 03/23/23 08:04 Date of Discharge: March 27, 2023 Attending Provider at Admission: Sudheer Wood MD Attending Provider at Discharge: Ruddy Hernandez MD Primary Care Provider: Sudheer Wood MD Diagnoses at Discharge Discharge Diagnosis (1) Left lower lobe pneumonia: Status: Acute (2) UTI (urinary tract infection): Status: Acute (3) Cirrhosis: Status: Acute (4) CAD in [place] artery: Status: Acute (5) Acute diastolic CHF (congestive heart failure): Status: Acute (6) Bacteremia: Status: Acute Reason for Visit Reason for Visit: doesn't feel well Brief History: History as per HPI: Daksha Machuca is a 83 year old female presenting to the emergency department [facility] with concerns of elevated temperature, tachycardia.? She has had a cough, nonproductive.? Normally on 2 L but is now on 3 L.? Was having some chills at the nursing facility.? Further history is somewhat difficult.? She denies any vomiting or diarrhea for me although emergency department does relate loose stools on their evaluation.? She reports some discomfort in her left lower chest and left upper abdomen. Hospital Course Hospital Course Patient was under the hospital further evaluation and management of febrile disorder along with hypoxia in setting of left lower lobe pneumonia, possible UTI and acute diastolic heart failure for which he started on IV Lasix. During hospitalization she was found to have urine culture positive for Klebsiella and E. coli with blood cultures positive for strep. Patient's respiratory status improved with diuresis and nebulization treatment hence thoracentesis was deferred. Echocardiogram was done which ruled out infective endocarditis and was consistent with normal EF. Repeat blood culture have remained negative. She has been discharged hemodynamically [facility] condition [facility] on IV ceftriaxone which would cover for all 3 bacteria's grown in urine and blood cultures. PICC line was placed which is to be removed after completion of IV antibiotic course. PICC line should be tested weekly. Physical Exam Narrative: General exam no distress, on 2 L of oxygen Neck is supple Cardiovascular: regular rate and rhythm, no murmur Lungs: Clear but diminished bilaterally Abdomen is soft. Positive bowel sounds. Improved tenderness left upper quadrant area. No obvious masses. Extremities improved edema in bilateral lower extremities. Overall trace edema Discharge Data Studies Completed and Pending Completed Studies During Hospitalization Category Date Time Status CT angio chest w abd pel w con Stat Cat Scan 03/23/23 08:53 Completed CXRP [XR chest 1V portable [id number]] Routine Exams 03/24/23 08:24 Completed XR chest 1V portable [id number] Stat Exams 03/23/23 06:08 Completed CV. echo complete* [id number] Routine Ultrasound 03/26/23 08:14 Completed Pending at discharge Category Date Time Status Blood Culture Routine Lab 03/24/23 05:24 Results Blood Culture Stat Lab 03/23/23 06:51 Results Sputum Culture and Gram Stain Routine Lab 03/23/23 12:02 Uncollected Laboratory Results WBC 3.50 10^3/uL (3.29-11.43) 03/27/23 05:14 RBC 2.79 10^6/uL (3.85-5.65) L 03/27/23 05:14 Hgb 8.60 g/dL (11.27-16.99) L 03/27/23 05:14 Hct 28.5 % (36-47) L 03/27/23 05:14 MCV 102.2 fl (85-98) H 03/27/23 05:14 MCH 30.8 pg (27-33) 03/27/23 05:14 MCHC 30.2 g/dL (30-55) 03/27/23 05:14 RDW 15.2 % (12.1-15.1) H 03/27/23 05:14 Plt Count 76 10^3/cmm (157-399) L 03/27/23 05:14 MPV 10.0 fL (7.4-10.4) 03/27/23 05:14 Neut % (Auto) 49.1 % 03/27/23 05:14 Lymph % (Auto) 16.6 % 03/27/23 05:14 [place] % (Auto) 13.1 % 03/27/23 05:14 Eos % (Auto) 20.3 % 03/27/23 05:14 Baso % (Auto) 0.6 % 03/27/23 05:14 Neut # (Auto) 1.72 10^3/uL (1.8-7.7) L 03/27/23 05:14 Lymph # (Auto) 0.6 10^3/uL (0.8-4.8) L 03/27/23 05:14 [place] # (Auto) 0.5 10^3/uL (0.2-0.9) 03/27/23 05:14 Eos # (Auto) 0.7 10^3/uL (0.0-0.8) 03/27/23 05:14 Baso # (Auto) 0.0 10^3/uL (0.0-0.1) 03/27/23 05:14 Nucleated RBC % (auto) 0 % 03/27/23 05:14 Nucleated RBCs # 0.0 /100WBC 03/27/23 05:14 PT 16.00 SECONDS (12.1-14.9) H 03/26/23 05:03 INR 1.24 (0.8-1.2) H 03/26/23 05:03 Sodium 141 mmol/L (136-145) 03/27/23 05:14 Potassium 3.8 mmol/L (3.5-5.1) 03/27/23 05:14 Chloride 106 mmol/L (98-107) 03/27/23 05:14 Carbon Dioxide 30 mmol/L (22-29) H 03/27/23 05:14 Anion Gap 8.8 (5-19) 03/27/23 05:14 BUN 12 mg/dL (8-23) 03/27/23 05:14 Creatinine 0.6 mg/dL (0.5-0.9) 03/27/23 05:14 GFR Calculation Not Reportable 03/27/23 05:14 Glucose 91 mg/dL (65-115) 03/27/23 05:14 Calculated Osmolality 291 mOsm/kg (285-295) 03/27/23 05:14 Lactic Acid 1.6 mmol/L (0.5-2.2) 03/23/23 06:51 Calcium 7.9 mg/dL (8.5-10.5) L 03/27/23 05:14 Magnesium 1.8 mg/dL (1.7-2.3) 03/25/23 06:04 Total Bilirubin 0.9 mg/dL (0.15-1.2) 03/27/23 05:14 AST 24 U/L (0-32) 03/27/23 05:14 ALT 9 U/L (0-33) 03/27/23 05:14 Alkaline Phosphatase 89 U/L (35-105) 03/27/23 05:14 Troponin T Gen 5 ng/L 54 ng/L (0-10) H 03/23/23 06:46 NT-Pro-B Natriuret Pep 301 pg/mL (0-450) 03/23/23 06:46 Total Protein 6.1 g/dL (6.6-8.7) L 03/27/23 05:14 Albumin 2.4 g/dL (3.5-5.2) L 03/27/23 05:14 Globulin 3.7 g/dL (1.3-4.6) 03/27/23 05:14 Urine Color Yellow (Yellow) 03/23/23 06:28 Urine Appearance Cloudy (CLEAR) A 03/23/23 06:28 Urine pH 7 (5-7) 03/23/23 06:28 Ur Specific [place] 1.010 (1.005-1.030) 03/23/23 06:28 Urine Protein Neg (Negative) 03/23/23 06:28 Urine Glucose (UA) Norm (Normal) 03/23/23 06:28 Urine Ketones 1+ (Negative) H 03/23/23 06:28 Urine Blood 3+ (Negative) H 03/23/23 06:28 Urine Nitrate Positive (Negative) H 03/23/23 06:28 Urine Bilirubin Neg (Negative) 03/23/23 06:28 Urine Urobilinogen Neg mg/dL (Negative) 03/23/23 06:28 Ur Leukocyte Esterase 2+ (Negative) H 03/23/23 06:28 Urine RBC 10-15 /hpf (0-2) H 03/23/23 06:28 Urine WBC 40-55 /hpf (0-5) H 03/23/23 06:28 Ur Squamous Epith Cells 0-4 /hpf (0-5) H 03/23/23 06:28 Amorphous Sediment Not Reportable 03/23/23 06:28 Urine Bacteria 3+ /hpf (NONE) H 03/23/23 06:28 Coronavirus 229E (PCR) Not detected (NOT DETECT) 03/23/23 06:26 Influenza Type A Ag Negative (Negative) 03/23/23 06:26 Influenza Type B Ag Negative (Negative) 03/23/23 06:26 SARS-CoV-2 (PCR) Not detected (NOT DETECT) 03/23/23 06:26 MRSA (PCR) Not detected (NOT DETECTED) 03/24/23 01:28 Vitals Last Vital Signs Temp 97.8 F 03/27/23 11:37 Pulse 88 03/27/23 11:37 Resp 15 03/27/23 11:37 BP 155/75 03/27/23 11:37 Pulse Ox 100 03/27/23 11:37 O2 Del Method Nasal Cannula 03/27/23 11:37 O2 Flow Rate 2 03/27/23 11:37 Discharge Plan Discharge Patient Disposition: Xfer SNF Condition: Stable Prescriptions: New pantoprazole 40 mg Tablet,Delayed Release (Dr/Ec) 40 mg PO DAILY Qty: 30 0RF ceftriaxone 1 gram recon soln 1 g IM Q24H Qty: 12 0RF Continued magnesium hydroxide [Milk of Magnesia] 400 mg/5 mL suspension 30 ml PO Q24H PRN (Reason: Constipation) fluticasone propionate 50 mcg/actuation spray,suspension 1 spray intranasal BID@09,21 Rx Instructions: administer into each nostril sertraline 25 mg tablet 25 mg PO DAILY@07 polyethylene glycol 3350 [Miralax] 17 gram/dose powder 17 gm PO Q2D Rx Instructions: hold for loose stools solifenacin [Vesicare] 5 mg tablet 5 mg PO DAILY Qty: 30 12RF bisacodyl 10 mg Suppository 10 mg MS DAILY PRN (Reason: Constipation) clopidogrel [Plavix] 75 mg tablet 75 mg PO DAILY 30 Days Qty: 30 3RF potassium chloride [Klor-Con M20] 20 mEq tablet,ER particles/crystals 20 meq PO DAILY Qty: 30 0RF furosemide 40 mg tablet 40 mg PO DAILY acetaminophen 325 mg Tablet 650 mg PO Q4H PRN (Reason: Pain) gabapentin 300 mg capsule 300 mg PO BID nystatin 100,000 unit/mL suspension See Rx Instructions .ROUTE .COMPLEX Rx Instructions: 1 application q12h as needed Imodium A-D 2 mg Tablet 2 mg PO Q6H PRN (Reason: Diarrhea) morphine 20 mg/5 mL (4 mg/mL) Solution See Rx Instructions .ROUTE .COMPLEX PRN (Reason: Pain) Rx Instructions: 0.25 ml orally as needed for pain every 2 hours Nitrostat 0.4 mg Tablet, Sublingual 0.4 mg SUBLINGUAL Q5M PRN (Reason: Chest Pain) Rx Instructions: do not exceed 3 doses per episode cocoa butter-shark liver oil Suppository 1 supp MS DAILY calcium carbonate 500 mg calcium (1,250 mg) Tablet,Chewable 500 mg PO BID diclofenac sodium 1 % Gel 4 g TOPICAL QID Rx Instructions: apply to single knee, ankle, foot; for foot includes sole/toes/top of foot multivitamin Tablet 1 tab PO DAILY@07 gabapentin 600 mg Tablet 600 mg PO DAILY ondansetron HCl 4 mg Tablet 4 mg PO Q4H PRN (Reason: Nausea And Vomiting) sennosides-docusate sodium [Stool Softener-Laxative] 8.6-50 mg Tablet 2 tab PO BID@08,20 Lflyc-Qz-Hgm Enema 19-7 gram/118 mL Enema 118 ml MS DAILY PRN (Reason: Constipation) No Action aspirin 81 mg Tablet,Delayed Release (Dr/Ec) 81 mg PO DAILY 30 Days Qty: 30 3RF famotidine 20 mg tablet 20 mg PO BID Discharge Orders: Discharge Order (Routine); Ordered 03/27/23 Ordered By: Ruddy Hernandez Referrals: Sudheer Wood MD [Primary Care Provider] - Discharge Diet: Cardiac Discharge Activity: Increase activity as tolerated Patient Instructions: Ceftriaxone (By injection) (Rocephin, Novaplus cefTRIAXone,..., Pantoprazole (By mouth) Activity Restrictions/Additional Instructions: Take all medicine as prescribed Continue Rocephin IV as noted above for 12 more days Follow-up with infectious disease in 1 week Oxygen 2 L per nasal cannula. Titrate for sat greater than or equal to 90% Please arrange Urology referral for 1-2 weeks for recurrent UTI's, past history of stones. Discharge Attestations Time Spent in Discharge Care*: greater than 30 min Specific Discharge Activities: educating patient, discussing with pcp/other providers, discussing with returned case inspector/social workers/dc planners, documenting/other paperwork and evaluating patient/reviewing data Status at Discharge: Cognitive status at discharge: cognitively intact , Behavioral status at discharge: cooperative , Functional status at discharge: other assisted ambulation , Overall status at discharge: patient is progressing back to baseline Quality Metrics Clinical Quality Measures [ No reported AMI, CVA or VTE this stay] Coding Level of Care Code 69873 Total time (in minutes) for Discharge: 50 Diagnoses Left lower lobe pneumonia J18.9 UTI (urinary tract infection) N39.0 Cirrhosis K74.60 CAD in [place] artery I25.10 Acute diastolic CHF (congestive heart failure) I50.31 Bacteremia R78.81
--- NOTE | 2023-03-27 14:08 | PC.NURSE ---
THIS NURSE CONTACTED [facility] AND NOTIFIED THEM THAT ALESSIA BO WOULD BE RETURNING TODAY.
--- NOTE | 2023-03-27 14:42 | PC.NURSE ---
PABLO ride set up. Trip ID #[id number]
[2023-03-27 15:26] VITALS: BP 155/75; PULSE 88; RESP 15; TEMP 36.6; O2SAT 100
== END 2023-03-27 15:27 | disposition skilled nursing facility (03) | DRG 193 ==
LOC: ER 07:45 → MEDSURG 15:43
PROVIDERS: Admitting Provider Internal Medicine; Emergency Provider Family Medicine; PCP Internal Medicine; Visit Provider Student in an Organized Health Care Education/Training Program
DX: J18.9 Pneumonia, unspecified organism (principal); I50.31 Acute diastolic (congestive) heart failure; N39.0 Urinary tract infection, site not specified; R78.81 Bacteremia; I25.10 Atherosclerotic heart disease of native coronary artery without angina pectoris; K74.60 Unspecified cirrhosis of liver; B96.1 Klebsiella pneumoniae [K. pneumoniae] as the cause of diseases classified elsewhere; B96.20 Unspecified Escherichia coli [E. coli] as the cause of diseases classified elsewhere; E11.42 Type 2 diabetes mellitus with diabetic polyneuropathy; E11.51 Type 2 diabetes mellitus with diabetic peripheral angiopathy without gangrene; B95.1 Streptococcus, group B, as the cause of diseases classified elsewhere
CPT/HCPCS: 36415; 36573; 36592; 71045; 71275; 74177; 80053; 81001; 83605; 83735; 83880; 84484; 85025; 85610; 87040; 87077; 87086; 87150; 87186; 87205; 87635; 87641; 87804; 93005; 93306; 96365; 96372; 96375; 99285; J0696; J1650; J1940; J2185; J3370; J7050; Q9967

== ENCOUNTER → 2023-05-11 10:40 | Outpatient (BNVA) | payer MEDICARE, MEDICAID, SELFPAY | PROVIDERS: PCP Internal Medicine; Visit Provider Student in an Organized Health Care Education/Training Program | DX: R78.81 Bacteremia (principal) | CPT/HCPCS: 99203 ==

== ENCOUNTER 2023-05-14 07:41 | Inpatient (IN) | payer MEDICARE, MEDICAID, SELFPAY ==
[2023-05-14] VITALS (16 sets, daily range): BP systolic 94–160; BP diastolic 49–99; PULSE 83–95; RESP 15–19; TEMP 36.6–36.8; O2SAT 93–99; BMI 29.0; BMI 28.8
--- NOTE | 2023-05-14 07:48 | XRR_ITS ---
PROCEDURE INFORMATION: Exam: XR Chest Exam date and time: 05/14/2023 8:08 AM Age: 83 years old Clinical indication: Cough with hemorrhage; Additional info: Dyspnea/cough TECHNIQUE: Imaging protocol: Radiologic exam of the chest. Views: 1 view. Total images: 790 COMPARISON: CR XR chest 1V portable [id number] 03/24/2023 9:16 AM FINDINGS: Lungs: Nonspecific left lung base opacity favors atelectasis or pneumonia. Pleural spaces: Moderate left and small right pleural effusions. Heart/Mediastinum: Heart is enlarged but stable when compared to the prior exam. Bones/joints: Osseous structures are unchanged from the prior exam. XR/XR chest 1V portable [id number] IMPRESSION: 1. Heart is enlarged but stable when compared to the prior exam. 2. Nonspecific left lung base opacity favors atelectasis or pneumonia. 3. Moderate left and small right pleural effusions.
--- NOTE | 2023-05-14 07:48 | ECG_ITS ---
[facility] Test Date: 2023-05-14 Pat Name: Daksha Machuca Department: Room: Gender: Female Occupational Therapy Manager: : 1940 Requested By: Jamie Millan Order Number: [id number] Magalys MD: Mavis Paige M.D. Measurements Intervals Alexander Rate: 87 P: 29 NE: 126 QRS: 62 QRSD: 120 T: -11 QT: 372 QTc: 449 Interpretive Statements SINUS RHYTHM POSSIBLE INFERIOR MYOCARDIAL INFARCTION , PROBABLY OLD [30 ms Q WAVE IN II/aVF] Compared to ECG 03/23/2023 06:14:02 Myocardial infarct finding now present Sinus tachycardia no longer present T-wave abnormality no longer present Electronically Signed On 05-14-2023 19:26:32 KETTLEMAN by Mavis Paige M.D. [id number]
[2023-05-14 08:08] LABS: Basophils % 0.6 %; Eosinophils # 0.6 10^3/uL (0.0-0.8); Eosinophils % 18.4 %; Hematocrit 25.6 % (36-47); Lymphocytes # 0.7 10^3/uL (0.8-4.8); Lymphocytes % 19.9 %; Mean Corpuscular HGB Conc 30.1 g/dL (30-55); Mean Corpuscular Hemoglobin 30.6 pg (27-33); Mean Corpuscular Volume 101.6 fl (85-98); Monocytes # 0.4 10^3/uL (0.2-0.9); Neutrophils # 1.74 10^3/uL (1.8-7.7); Neutrophils % 50.1 %; Nucleated Red Blood Cells % 0 %; Platelet Count 88 10^3/cmm (157-399); Red Blood Count 2.52 10^6/uL (3.85-5.65); Red Cell Distribution Width 15.4 % (12.1-15.1); White Blood Count 3.47 10^3/uL (3.29-11.43)
--- NOTE | 2023-05-14 08:11 | ED_ITS ---
HPI - GI Bleed 2 General: Chief complaint: ER Hold Stated complaint: gi bleed Time Seen by Provider: 05/14/23 07:44 Source: patient Mode of arrival: EMS History of Present Illness: 83-year-old female presents emergency ro om with prior blood per rectum for the last several days from the senior living. No vomiting or diarrhea she is not on any anticoagulants. No abdominal pain or chest pain she states she has had this in the past has not had a transfusions for it. She is on aspirin and Plavix. Her last intervention for cardiology was several years ago. Denies fever sweats or chills dysuria urgency or frequency. She relates she has had hemorrhoids in the past. No specific abdominal pain. MD complaint: gross hematochezia Onset (ago): day(s) Relieving factors: none Exacerbating factors: none Associated symptoms: Denies abdominal pain, chills, fever(s) or rash Review of Systems 2 Const: Denies: fever(s) or chills Card: Denies: chest pain Resp: Denies: dyspnea GI: Denies: abdominal pain : Denies: dysuria, urinary frequency or urinary urgency Musc: Denies: neck pain or back pain Skin/Breast: Denies: rash PFSH ED 2 PFSH: Medical History Bacteremia Thrombocytopenia Diabetes Gout Hypothyroidism Acute UTI Altered mental status Non-ST elevation [place] (NSTEMI) Confusion Urolithiasis Retained ureteral stent Cystitis cystica History of diabetes mellitus History of CVA (cerebrovascular accident) GERD (gastroesophageal reflux disease) Peripheral artery disease Hypertension Chronic back pain Osteoarthritis Polyneuropathy Post herpetic neuralgia CAD in [place] artery Chronic cystitis Surgical History H/O bladder repair surgery S/P tonsillectomy Hip fracture History of cataract surgery History of cholecystectomy H/O: hysterectomy Family History Other Renal cancer Social History Smoking and tobacco/nicotine status: never used tobacco/nicotine Alcohol intake: never Substance/Drug Use: never Adopted: No Caregiver/support person: No Lives independently: No Housing: Long Term Marital status: Current occupational status: retired Current gender identity: Female Physical Exam 2 Const: COMMON NORMALS: no acute distress GENERAL APPEARANCE: cooperative and comfortable ORIENTATION/CONSCIOUSNESS: Yes awake, Yes oriented to person, Yes oriented to place and Yes oriented to time HENMT: COMMON NORMALS: normocephalic, atraumatic and hearing grossly normal bilaterally HEAD & SCALP: normocephalic and atraumatic Resp: COMMON NORMALS: normal respiratory effort, No retractions, No use of accessory muscles and clear to auscultation bilaterally AUSCULTATION: clear to auscultation bilaterally Cardio: COMMON NORMALS: regular rate, regular rhythm and No murmurs present (Cardio) RATE: regular rate RHYTHM: regular rhythm GI: COMMON NORMALS: Soft to palpation and No hepatosplenomegaly present A USCULTATION: Yes normoactive bowel sounds PALPATION: Yes Soft to palpation, No Tenderness to palpation present (GI), No Guarding due to palpation present (GI) and Yes No hepatosplenomegaly present Extremity: COMMON NORMALS: normal to inspection, capillary refill normal, no clubbing, cyanosis or edema, no calf tenderness and no pedal edema Neuro: SENSORIUM/ORIENTATION: Yes oriented to person, Yes oriented to place and Yes oriented to time Skin: COMMON NORMALS: no rashes or lesions noted GENERAL SKIN EXAM: no rashes or lesions noted Course 2 Vital Signs: Vital signs: Vital Signs Temperature 97.8 F 05/14/23 12:15 Pulse Rate 86 05/14/23 13:30 Respiratory Rate 18 05/14/23 13:30 Blood Pressure 126/49 05/14/23 13:30 Pulse Oximetry 98 05/14/23 13:30 Oxygen Delivery Me thod Room Air 05/14/23 12:51 MDM - GI Bleed Medical Decision Making Patient had a large bloody bowel movement while in the emergency room. Will place in observation discussed with hospitalist transfusing 1 unit. Medical Records I reviewed the patient's medical records. Lab Data I reviewed the patient's lab results. 05/14/23 07:40 05/14/23 08:24 Radiology Impressions Chest X-Ray 05/14/23 07:48 IMPRESSION: 1. Heart is enlarged but stable when compared to the prior exam. 2. Nonspecific left lung base opacity favors atelectasis or pneumonia. 3. Moderate left and small right pleural effusions. Laboratory Results WBC 3.47 10^3/uL (3.29-11.43) 05/14/23 07:40 RBC 2.52 10^6/uL (3.85-5.65) L 05/14/23 07:40 Hgb 7.70 g/dL (11.27-16.99) L 05/14/23 07:40 Hct 25.6 % (36-47) L 05/14/23 07:40 MCV 101.6 fl (85-98) H 05/14/23 07:40 MCH 30.6 pg (27-33) 05/14/23 07:40 MCHC 30.1 g/dL (30-55) 05/14/23 07:40 RDW 15.4 % (12.1-15.1) H 05/14/23 07:40 Plt Count 88 10^3/cmm (157-399) L 05/14/23 07:40 MPV 11.0 fL (7.4-10.4) H 05/14/23 07:40 Neut % (Auto) 50.1 % 05/14/23 07:40 Lymph % (Auto) 19.9 % 05/14/23 07:40 [place] % (Auto) 11.0 % 05/14/23 07:40 Eos % (Auto) 18.4 % 05/14/23 07:40 Baso % (Auto) 0.6 % 05/14/23 07:40 Neut # (Auto) 1.74 10^3/uL (1.8-7.7) L 05/14/23 07:40 Lymph # (Auto) 0.7 10^3/uL (0.8-4.8) L 05/14/23 07:40 [place] # (Auto) 0.4 10^3/uL (0.2-0.9) 05/14/23 07:40 Eos # (Auto) 0.6 10^3/uL (0.0-0.8) 05/14/23 07:40 Baso # (Auto) 0.0 10^3/uL (0.0-0.1) 05/14/23 07:40 Nucleated RBC % (auto) 0 % 05/14/23 07:40 Nucleated RBCs # 0.0 /100WBC 05/14/23 07:40 PT 16.60 SECONDS (12.1-14.9) H 05/14/23 07:40 INR 1.30 (0.8-1.2) H 05/14/23 07:40 APTT 30.7 SECONDS (23.9-36.7) 05/14/23 07:40 Sodium 143 mmol/L (136-145) 05/14/23 08:24 Potassium 4.2 mmol/L (3.5-5.1) 05/14/23 08:24 Chloride 108 mmol/L (98-107) H 05/14/23 08:24 Carbon Dioxide 26 mmol/L (22-29) 05/14/23 08:24 Anion Gap 13.2 (5-19) 05/14/23 08:24 BUN 11 mg/dL (8-23) 05/14/23 08:24 Creatinine 0.8 mg/dL (0.5-0.9) 05/14/23 08:24 GFR Calculation Not Reportable 05/14/23 08:24 Glucose 92 mg/dL (65-115) 05/14/23 08:24 Calculated Osmolality 295 mOsm/kg (285-295) 05/14/23 08:24 Calcium 8.5 mg/dL (8.5-10.5) 05/14/23 08:24 Total Bilirubin 0.9 mg/dL (0.15-1.2) 05/14/23 08:24 AST 21 U/L (0-32) 05/14/23 08:24 ALT 10 U/L (0-33) 05/14/23 08:24 Alkaline Phosphatase 111 U/L (35-105) H 05/14/23 08:24 Total Protein 6.8 g/dL (6.6-8.7) 05/14/23 08:24 Albumin 2.9 g/dL (3.5-5.2) L 05/14/23 08:24 Globulin 3.9 g/dL (1.3-4.6) 05/14/23 08:24 Urine Color Yellow (Yellow) 05/14/23 08:40 Urine Appearance Cloudy (CLEAR) A 05/14/23 08:40 Urine pH 7 (5-7) 05/14/23 08:40 Ur Specific [place] 1.005 (1.005-1.030) 05/14/23 08:40 Urine Protein Neg (Negative) 05/14/23 08:40 Urine Glucose (UA) Norm (Normal) 05/14/23 08:40 Urine Ketones Negative (Negative) 05/14/23 08:40 Urine Blood 3+ (Negative) H 05/14/23 08:40 Urine Nitrate Negative (Negative) 05/14/23 08:40 Urine Bilirubin Neg (Negative) 05/14/23 08:40 Urine Urobilinogen Neg mg/dL (Negative) 05/14/23 08:40 Ur Leukocyte Esterase 2+ (Negative) H 05/14/23 08:40 Urine RBC 0-4 /hpf (0-2) H 05/14/23 08:40 Urine WBC 15-25 /hpf (0-5) H 05/14/23 08:40 Ur Squamous Epith Cells 0-4 /hpf (0-5) H 05/14/23 08:40 Amorphous Sediment Not Reportable 05/14/23 08:40 Urine Bacteria 3+ /hpf (NONE) H 05/14/23 08:40 Blood Type O Positive 05/14/23 08:24 Rho(D) Type Rh positive 05/14/23 08:24 Antibody Screen Negative 05/14/23 08:24 Crossmatch See Detail 05/14/23 08:24 All radiology interpretation(s) finalized by discharge Discharge Plan Discharge Patient Disposition: Placed in Observation Admit Provider: Sudheer Wood Clinical Impression: Lower gastrointestinal hemorrhage Condition: Stable Coding Level of Care Code ED Statistical Geneticist for Paramjit Low
[2023-05-14 08:20] LABS: Partial Thromboplastin Time 30.7 SECONDS (23.9-36.7)
--- NOTE | 2023-05-14 08:22 | CT_ITS ---
WS: [id number] CT ABDOMEN PELVIS TECHNIQUE: Contrast-enhanced CT of the abdomen and pelvis with coronal and sagittal reformatted image s. CLINICAL INFORMATION: abd pain/Lower GI bleed COMPARISON: None. DLP: 667.[address] scans at [facility] use at least one of these dose optimization techniques: automated e xposure control; mA and/or kV adjustment per patient size (includes targeted exams where dose is matc hed to clinical indication); or iterative reconstruction. FINDINGS: Small bilateral pleural effusions with compressive atelectasis in the LEFT lung base. Recommend corre lation for pneumonia. Mild diffuse body wall anasarca. Cirrhotic liver. Cholecystectomy clips. Spleno megaly. Evidence of portal venous hypertension with upper abdominal and splenic varices. Surgical cli ps at the GE junction. Chronic intrahepatic biliary ductal dilatation and common bile duct dilatation unchanged. Fatty atrophy of the pancreas. Mild aortic calcification. No evidence of small or large bowel obstruction. Urine distended bladder. Adrenal glands are normal. No hydronephrosis in either kidney. Cannulated screw fixation LEFT hip. Mild lumbar curve. Disc space narrowing lower thoracic and lumbar spine. Lumbar scoliosis convex LEFT. IMPRESSION: 1. No new acute findings in the abdomen or pelvis. 2. Cirrhotic liver with splenomegaly and upper abdominal varices compatible with portal venous hyper tension. This is unchanged from previous. 3. Diffuse body wall anasarca. 4. Small LEFT pleural effusion with compressive atelectasis LEFT lower lobe. Correlation for pneumon ia. Small RIGHT pleural effusion. 5. Cholecystectomy. 6. Prior hysterectomy. 7. A few sigmoid diverticuli. No evidence of acute diverticulitis. 8. No other acute findings.
[2023-05-14 09:02] LABS: Alanine Aminotransferase 10 U/L (0-33); Albumin Level 2.9 g/dL (3.5-5.2); Alkaline Phosphatase 111 U/L (35-105); Anion Gap 13.2 (5-19); Aspartate Amino Transferase 21 U/L (0-32); Blood Urea Nitrogen 11 mg/dL (8-23); Calcium 8.5 mg/dL (8.5-10.5); Carbon Dioxide 26 mmol/L (22-29); Chloride 108 mmol/L (98-107); Globulin 3.9 g/dL (1.3-4.6); Glucose 92 mg/dL (65-115); Osmolality Calculated 295 mOsm/kg (285-295); Potassium 4.2 mmol/L (3.5-5.1); Sodium 143 mmol/L (136-145); Total Bilirubin 0.9 mg/dL (0.15-1.2); Total Protein 6.8 g/dL (6.6-8.7)
[2023-05-14 09:17] LABS: Urine Color Yellow (Yellow)
[2023-05-14 09:18] LABS: Bilirubin Urine Neg (Negative); Blood Urine 3+ (Negative); Glucose Urine UA Norm (Normal); Ketones Urine Negative (Negative); Nitrate Urine Negative (Negative); Protein Urine Neg (Negative); Specific Gravity, Urine 1.005 (1.005-1.030); Urine Appearance Cloudy (CLEAR); Urobilinogen Urine Neg (Negative); pH Urine 7 (5-7)
[2023-05-14 09:19] LABS: Add Urine Culture? Yes; Add Urine Microscopic? YES; Bacteria Urine 3+ /hpf; Leukocyte Esterase Urine 2+ (Negative); RBC Urine 0-4 /hpf (0-2); Squamous Epithelial Cell Urine 0-4 /hpf (0-5); WBC Urine 15-25 /hpf (0-5)
[2023-05-14] MEDS: iohexol 350 mg/mL 500 mL Btl (per mL) IV (09:59)
--- NOTE | 2023-05-14 11:32 | PM.HP ---
Documented by User: Jaxon Morrison kaycee Aviles 05/14/23 11:59 Providers/Chief Complaint Admitting Physician: Sudheer Wood MD Primary Care Provider: Sudheer Wood MD Chief Complaint: gi bleed History of Present Illness Patient is a 83-year-old female with past medical history of CAD, cirrhosis, dysphagia, CVA, PCI, NSTEMI, hypothyroidism, diabetes presents the emergency room with bloody stools. Patient will be admitted to the hospital for further medical management of GI bleed. Patient states that she has noticed in the past 2 to 3 days that she has had blood in her stools. Patient resides at a alf facility and notified staff early this are morning about bloody stools. Patient was transported to [facility] ER via EMS. She does report abdominal pain to bilateral lower quadrants. She denies any vomiting blood or urinating blood. She denies any chest discomfort, nausea, vomiting, fever, chills or dyspnea. She denies any alleviating or aggravating factors at this time. Reports abdominal pain 5/10 on pain scale. While in the emergency room, laboratory studies and radiology imaging were performed. 1 unit RBCs ordered and started. Review of Systems Narrative: Comprehensive 10 point ROS is negative except as noted in HPI above GI: Reports: hematochezia Medications/Allergies Home Medications Medication Instructions Recorded Confirmed Last Taken Type bisacodyl 10 mg rectal suppository 10 mg [place] DAILY PRN Constipation 07/14/19 05/14/23 Unknown History polyethylene glycol 3350 17 17 gm PO Q2D 08/30/19 05/14/23 09/22/21 History gram/dose oral powder (Miralax) fluticasone propionate 50 1 spray intranasal BID@01/09/21 05/14/23 Unknown History mcg/actuation nasal spray,suspension magnesium hydroxide 400 mg/5 mL 30 ml PO Q24H PRN Constipation 01/09/21 05/14/23 Unknown History oral suspension (Milk of Magnesia) sertraline 25 mg tablet 25 mg PO DAILY@08/22/21 05/14/23 Unknown History gabapentin 600 mg tablet 600 mg PO DAILY 09/24/21 05/14/23 Unknown History multivitamin 1 tab PO DAILY@09/24/21 05/14/23 Unknown History ondansetron HCl 4 mg tablet 4 mg PO Q4H PRN Nausea And Vomiting 09/24/21 05/14/23 Unknown History sennosides 8.6 mg-docusate sodium 2 tab PO BID@08,20 09/24/21 05/14/23 Unknown History 50 mg tablet (Stool Softener-Laxative) sodium phosphates 19 gram-7 118 ml [place] DAILY PRN Constipation 09/24/21 05/14/23 Unknown History gram/118 mL enema (Vkvnh-Iq-Tkh Enema) aspirin 81 mg tablet,delayed 81 mg PO DAILY 30 days #30 tabs 10/04/21 05/14/23 Unknown Rx release clopidogrel 75 mg tablet (Plavix) 75 mg PO DAILY 30 days #30 tabs 10/04/21 05/14/23 Unknown Rx potassium chloride 20 mEq 20 meq PO DAILY #30 tabs 10/04/21 05/14/23 Unknown Rx tablet,extended release(part/cryst) (Klor-Con M) solifenacin 5 mg tablet (Vesicare) 5 mg PO DAILY #30 tabs 01/06/22 05/14/23 Unknown Rx acetaminophen 325 mg tablet 650 mg PO Q4H PRN Pain 03/23/23 05/14/23 Unknown History calcium carbonate 500 mg calcium 500 mg PO BID 03/23/23 05/14/23 Unknown History (1,250 mg) chewable tablet cocoa butter-shark liver oil 1 supp [place] DAILY PRN Hemorrhoids 03/23/23 05/14/23 Unknown History rectal suppository diclofenac sodium 1 % topical gel See Rx Instructions .Route .COMPLEX 03/23/23 05/14/23 Unknown History famotidine 20 mg tablet 20 mg PO BID 03/23/23 05/14/23 Unknown History furosemide 40 mg tablet 40 mg PO DAILY 03/23/23 05/14/23 Unknown History gabapentin 300 mg capsule 300 mg PO BID 03/23/23 05/14/23 Unknown History loperamide 2 mg tablet (Imodium 2 mg PO Q6H PRN Diarrhea 03/23/23 05/14/23 Unknown History A-D) morphine 20 mg/5 mL (4 mg/mL) oral See Rx Instructions .Route 03/23/23 05/14/23 Unknown History solution .COMPLEX PRN Pain nitroglycerin 0.4 mg sublingual 0.4 mg sublingual Q5M PRN Chest 03/23/23 05/14/23 Unknown History tablet (Nitrostat) Pain pantoprazole 40 mg tablet,delayed 40 mg PO DAILY #30 tabs 03/26/23 05/14/23 Unknown Rx release carboxymethylcellulose sodium 1 % 1 drp ophthalmic (eye) TID PRN Dry 05/14/23 05/14/23 Unknown History eye liquid gel drops Eyes lanolin alcohols-mineral 1 applic topical DAILY PRN Dry Skin 05/14/23 05/14/23 Unknown History oil-w.petrolatum-ceresin topical cream (Eucerin topical cream) nystatin 100,000 unit/gram topical 1 applic topical BID y 05/14/23 05/14/23 Unknown History powder Allergies Allergy/AdvReac Type Severity Reaction Status Date / Time amoxicillin Allergy Unknown Verified 05/11/23 11:06 cefepime Allergy Unknown Verified 05/11/23 11:06 ciprofloxacin [From Cipro] Allergy Unknown Verified 05/11/23 11:06 codeine Allergy Unknown Verified 05/11/23 11:06 Influenza Virus Vaccines Allergy Unknown Verified 05/11/23 11:06 iodine Allergy Unknown Verified 05/11/23 11:06 Quinolones Allergy Unknown Verified 05/11/23 11:06 Sulfa (Sulfonamide Allergy Unknown Verified 05/11/23 11:06 Antibiotics) Sulfonylureas Allergy Unknown Verified 05/11/23 11:06 PFSH Acute PFSH: Medical History Bacteremia Thrombocytopenia Diabetes Gout Hypothyroidism Acute UTI Altered mental status Non-ST elevation AR (NSTEMI) Confusion Urolithiasis Retained ureteral stent Cystitis cystica History of diabetes mellitus History of CVA (cerebrovascular accident) GERD (gastroesophageal reflux disease) Peripheral artery disease Hypertension Chronic back pain Osteoarthritis Polyneuropathy Post herpetic neuralgia CAD in [place] artery Chronic cystitis Surgical History H/O bladder repair surgery S/P tonsillectomy Hip fracture History of cataract surgery History of cholecystectomy H/O: hysterectomy Family History Other Renal cancer Social History Smoking and tobacco/nicotine status: never used tobacco/nicotine Alcohol intake: never Substance/Drug Use: never Adopted: No Caregiver/support person: No Lives independently: No Housing: Correction Marital status: Current occupational status: retired Current gender identity: Female Vitals/I&O/Wt Last Vital Signs Temp 98.1 F 05/14/23 07:48 Pulse 86 05/14/23 11:18 Resp 18 05/14/23 11:18 BP 147/70 05/14/23 11:18 Pulse Ox 96 05/14/23 11:18 O2 Del Method Room Air 05/14/23 10:32 Weight last 48 hrs Weight 67.585 kg Physical Exam Narrative: General: Alert, able to answer questions appropriately, pleasant HEENT: Dry mucous membranes, head normocephalic Neck: Supple Lymph: No lymphadenopathy noted Chest: Normal to inspection Respiratory: Normal respiratory effort, clear lungs bilaterally throughout. Cardio: RRR, 2+ pulses radial and dorsalis pedis bilateral. No edema to upper and lower extremities. GI: Active bowel sounds throughout. Tender on palpation to bilateral lower quadrant. Rectal exam: Obvious external hemorrhoids present with bright red blood on pad. : Deferred, Adam cath in place Neuro: Alert and oriented x 4, able to answer questions appropriately, Skin: No open wounds, pale, dry Data 05/14/23 07:40 05/14/23 08:24 Other Labs: RBC 2.52, hemoglobin 7.7, hematocrit 25.6, MCV 101.6, platelet 88 PT 16.6, INR 1.3, PTT 30.7 Alk phos 111 CXR: My impression: Per my interpretation, cardiomegaly, bilateral small pleural effusion Radiologist's impression: 1. Heart is enlarged but stable when compared to the prior exam. 2. Nonspecific left lung base opacity favors atelectasis or pneumonia. 3. Moderate left and small right pleural effusions. CT Abd/Pel: Radiologist's impression: 1. No new acute findings in the abdomen or pelvis. 2. Cirrhotic liver with splenomegaly and upper abdominal varices compatible with portal venous hypertension. This is unchanged from previous. 3. Diffuse body wall anasarca. 4. Small LEFT pleural effusion with compressive atelectasis LEFT lower lobe. Correlation for pneumonia. Small RIGHT pleural effusion. 5. Cholecystectomy. 6. Prior hysterectomy. 7. A few sigmoid diverticuli. No evidence of acute diverticulitis. 8. No other acute findings. A&P Assessment and plan (1) GI bleed: Patient presents with bright red stools and had 1 episode of bright red stool while in the emergency room. Patient's hemoglobin noted to be 7.7. Patient receives 1 unit PRBCs at this time. Will recheck H&H 1 hour posttransfusion. Patient on home dose of aspirin and Plavix. Will hold due to current GI bleed and reevaluate whether patient requires continued Plavix therapy. Vital signs are stable at this time. Will hold off on any scope procedures due to increased risk as this might be likely due to medication induced and will further evaluate if patient declines. CBC in AM. (2) CAD in [place] artery: Recent echocardiogram was performed LVEF estimation 65%. Possible hypokinesis of apical septal, apical inferior and apical diaz. Normal diastolic function. Mild tricuspid valve regurg severe pulmonary hypertension with pulmonary artery pressure estimated at 59 mmHg. No present RV strain (3) Cirrhosis: Liver function test at this time is not within normal limits. Continue to monitor (4) Pleural effusion: X-ray confirmed moderate bilateral pleural effusions. Stable at this time. Not in any respiratory distress. (5) UTI (urinary tract infection): Plan Plan as stated above. We will admit patient and transfuse blood as needed for hemoglobin results patient will receive 1 unit PRBCs at this time and will recheck hemoglobin 1 hour posttransfusion as well as in AM. Will hold home Plavix and aspirin, and further evaluate whether patient continues to require Plavix therapy at this time. CODE STATUS: Full code. The patient is unable to answer questions for herself, Liset NITISH, who asked her questions and place the patient. DVT prophylaxis: SCDs Coding Level of Care Code 75260 Diagnoses GI bleed K92.2 CAD in [place] artery I25.10 Cirrhosis K74.60 Pleural effusion J90 UTI (urinary tract infection) N39.0 Time Spent (min) 56 Documented by User: Sudheer Wood MD 05/14/23 12:18 Providers/Chief Complaint Chief Complaint: gi bleed History of Present Illness Patient is a 83-year-old female with past medical history of CAD, cirrhosis, dysphagia, CVA, PCI, NSTEMI, hypothyroidism, diabetes presents the emergency room with bloody stools. Patient will be admitted to the hospital for further medical management of GI bleed. Patient states that she has noticed in the past 2 to 3 days that she has had blood in her stools. Patient resides at a alf facility and notified staff early this are morning about bloody stools. Patient was transported to [facility] ER via EMS. She does report abdominal pain to bilateral lower quadrants. She denies any vomiting blood or urinating blood. She denies any chest discomfort, nausea, vomiting, fever, chills or dyspnea. She denies any alleviating or aggravating factors at this time. Reports abdominal pain 5/10 on pain scale. She states the pain improves, after bowel movement While in the emergency room, laboratory studies and radiology imaging were performed. 1 unit RBCs ordered and started. Medications/Allergies Home Medications Medication Instructions Recorded Confirmed Last Taken Type bisacodyl 10 mg rectal suppository 10 mg WY DAILY PRN Constipation 07/14/19 05/14/23 Unknown History polyethylene glycol 3350 17 17 gm PO Q2D 08/30/19 05/14/23 09/22/21 History gram/dose oral powder (Miralax) fluticasone propionate 50 1 spray intranasal BID@01/09/21 05/14/23 Unknown History mcg/actuation nasal spray,suspension magnesium hydroxide 400 mg/5 mL 30 ml PO Q24H PRN Constipation 01/09/21 05/14/23 Unknown History oral suspension (Milk of Magnesia) sertraline 25 mg tablet 25 mg PO DAILY@08/22/21 05/14/23 Unknown History gabapentin 600 mg tablet 600 mg PO DAILY 09/24/21 05/14/23 Unknown History multivitamin 1 tab PO DAILY@09/24/21 05/14/23 Unknown History ondansetron HCl 4 mg tablet 4 mg PO Q4H PRN Nausea And Vomiting 09/24/21 05/14/23 Unknown History sennosides 8.6 mg-docusate sodium 2 tab PO BID@09/24/21 05/14/23 Unknown History 50 mg tablet (Stool Softener-Laxative) sodium phosphates 19 gram-7 118 ml [place] DAILY PRN Constipation 09/24/21 05/14/23 Unknown History gram/118 mL enema (Rmnlk-Tu-Iow Enema) aspirin 81 mg tablet,delayed 81 mg PO DAILY 30 days #30 tabs 10/04/21 05/14/23 Unknown Rx release clopidogrel 75 mg tablet (Plavix) 75 mg PO DAILY 30 days #30 tabs 10/04/21 05/14/23 Unknown Rx potassium chloride 20 mEq 20 meq PO DAILY #30 tabs 10/04/21 05/14/23 Unknown Rx tablet,extended release(part/cryst) (Klor-Con M) solifenacin 5 mg tablet (Vesicare) 5 mg PO DAILY #30 tabs 01/06/22 05/14/23 Unknown Rx acetaminophen 325 mg tablet 650 mg PO Q4H PRN Pain 03/23/23 05/14/23 Unknown History calcium carbonate 500 mg calcium 500 mg PO BID 03/23/23 05/14/23 Unknown History (1,250 mg) chewable tablet cocoa butter-shark liver oil 1 supp [place] DAILY PRN Hemorrhoids 03/23/23 05/14/23 Unknown History rectal suppository diclofenac sodium 1 % topical gel See Rx Instructions .Route .COMPLEX 03/23/23 05/14/23 Unknown History famotidine 20 mg tablet 20 mg PO BID 03/23/23 05/14/23 Unknown History furosemide 40 mg tablet 40 mg PO DAILY 03/23/23 05/14/23 Unknown History gabapentin 300 mg capsule 300 mg PO BID 03/23/23 05/14/23 Unknown History loperamide 2 mg tablet (Imodium 2 mg PO Q6H PRN Diarrhea 03/23/23 05/14/23 Unknown History A-D) morphine 20 mg/5 mL (4 mg/mL) oral See Rx Instructions .Route 03/23/23 05/14/23 Unknown History solution .COMPLEX PRN Pain nitroglycerin 0.4 mg sublingual 0.4 mg sublingual Q5M PRN Chest 03/23/23 05/14/23 Unknown History tablet (Nitrostat) Pain pantoprazole 40 mg tablet,delayed 40 mg PO DAILY #30 tabs 03/26/23 05/14/23 Unknown Rx release carboxymethylcellulose sodium 1 % 1 drp ophthalmic (eye) TID PRN Dry 05/14/23 05/14/23 Unknown History eye liquid gel drops Eyes lanolin alcohols-mineral 1 applic topical DAILY PRN Dry Skin 05/14/23 05/14/23 Unknown History oil-w.petrolatum-ceresin topical cream (Eucerin topical cream) nystatin 100,000 unit/gram topical 1 applic topical BID y 05/14/23 05/14/23 Unknown History powder Allergies Allergy/AdvReac Type Severity Reaction Status Date / Time amoxicillin Allergy Unknown Verified 05/11/23 11:06 cefepime Allergy Unknown Verified 05/11/23 11:06 ciprofloxacin [From Cipro] Allergy Unknown Verified 05/11/23 11:06 codeine Allergy Unknown Verified 05/11/23 11:06 Influenza Virus Vaccines Allergy Unknown Verified 05/11/23 11:06 iodine Allergy Unknown Verified 05/11/23 11:06 Quinolones Allergy Unknown Verified 05/11/23 11:06 Sulfa (Sulfonamide Allergy Unknown Verified 05/11/23 11:06 Antibiotics) Sulfonylureas Allergy Unknown Verified 05/11/23 11:06 PFSH Acute PFSH: Medical History Bacteremia Thrombocytopenia Diabetes Gout Hypothyroidism Acute UTI Altered mental status Non-ST elevation AR (NSTEMI) Confusion Urolithiasis Retained ureteral stent Cystitis cystica History of diabetes mellitus History of CVA (cerebrovascular accident) GERD (gastroesophageal reflux disease) Peripheral artery disease Hypertension Chronic back pain Osteoarthritis Polyneuropathy Post herpetic neuralgia CAD in [place] artery Chronic cystitis Surgical History H/O bladder repair surgery S/P tonsillectomy Hip fracture History of cataract surgery History of cholecystectomy H/O: hysterectomy Family History Other Renal cancer Social History Smoking and tobacco/nicotine status: never used tobacco/nicotine Alcohol intake: never Substance/Drug Use: never Adopted: No Caregiver/support person: No Lives independently: No Housing: Correction Marital status: Current occupational status: retired Current gender identity: Female Data 05/14/23 07:40 05/14/23 08:24 A&P Assessment and plan (1) GI bleed: Patient presents with bright red stools and had 1 episode of bright red stool while in the emergency room. Patient's hemoglobin noted to be 7.7. Patient receives 1 unit PRBCs at this time. Will recheck H&H 1 hour posttransfusion. Patient on home dose of aspirin and Plavix. Will hold due to current GI bleed and reevaluate whether patient requires continued Plavix therapy. Vital signs are stable at this time. Will hold off on any scope procedures due to increased risk as this might be likely due to medication induced and will further evaluate if needed. She also has thrombocytopenia, cirrhosis, evidence of abdominal varices. I think there is a high risk of esophageal varices on EGD. Her current bleed appears to be lower GI in origin. I discussed with her, her guardian, about possible endoscopy in [place] in the future as they would be able to do surveillance for varices and banding of varices if needed. At this point they are agreeable to blood transfusion, stopping antiplatelets, and stabilization. If she worsen greatly they are amenable to transfer. They are not eager to have any procedures done currently, which I think is reasonable at this time. CBC in AM. Repeat hemoglobin 1 hour following transfusion Protonix IV (2) CAD in [place] artery: (3) Cirrhosis: (4) Pleural effusion: X-ray confirmed small bilateral pleural effusions. Stable at this time. Not in any respiratory distress. (5) UTI (urinary tract infection): Initiate meropenem Urine culture Organisms have been relatively resistant in the past, and this may be a more ideal antibiotic considering her allergies to cefepime, Cipro, amoxicillin, quinolones, sulfa Attestations Medical Necessity Statement*: Will need greater than 2 midnight stay for evaluation and treatment of GI bleeding Diagnoses GI bleed K92.2 CAD in [place] artery I25.10 Cirrhosis K74.60 Pleural effusion J90 UTI (urinary tract infection) N39.0 Time Spent (min) 56
[2023-05-14] MEDS: sodium chloride 0.9% 100 mL Bag 50 ML IV (13:30)
[2023-05-14] MEDS: meropenem 1,000 MG in sodium chloride 0.9% (plus) 50 ML 100 MG IV ×2 (15:23→22:16)
[2023-05-14] MEDS: tranexamic acid 1,000 MG/100 ML PREMIX 600 MG IV (15:23)
[2023-05-14] MEDS: pantoprazole 40 mg SDV IVP (15:23)
[2023-05-14] MEDS: sodium chloride 0.9% 1,000 ML 100 ML IV (15:26)
[2023-05-14 15:35] LABS: Hematocrit 28.9 % (36-47)
[2023-05-14] MEDS: gabapentin 300 mg Capsule PO ×2 (18:18→21:09)
[2023-05-14] MEDS: acetaminophen 325 mg Tablet 650 MG PO (22:26)
[2023-05-15] VITALS (9 sets, daily range): BP systolic 124–149; BP diastolic 68–80; PULSE 78–93; RESP 14–17; TEMP 36.4–37.1; O2SAT 92–96
[2023-05-15] MEDS: sodium chloride 0.9% 1,000 ML 100 ML IV (01:05)
[2023-05-15] MEDS: pantoprazole 40 mg SDV IVP ×2 (02:43→15:17)
[2023-05-15] MEDS: acetaminophen 325 mg Tablet 650 MG PO (04:17)
[2023-05-15 05:54] LABS: Basophils % 0.7 %; Eosinophils # 0.5 10^3/uL (0.0-0.8); Eosinophils % 16.4 %; Hematocrit 24.8 % (36-47); Lymphocytes # 0.5 10^3/uL (0.8-4.8); Lymphocytes % 18.9 %; Mean Corpuscular Hemoglobin 30.9 pg (27-33); Mean Corpuscular Volume 99.6 fl (85-98); Mean Platelet Volume 10.4 fL (7.4-10.4); Monocytes # 0.3 10^3/uL (0.2-0.9); Monocytes % 11.6 %; Neutrophils # 1.44 10^3/uL (1.8-7.7); Neutrophils % 52.4 %; Nucleated Red Blood Cells % 0 %; Platelet Count 65 10^3/cmm (157-399); Red Blood Count 2.49 10^6/uL (3.85-5.65); Red Cell Distribution Width 16.7 % (12.1-15.1); White Blood Count 2.75 10^3/uL (3.29-11.43)
[2023-05-15 06:13] LABS: Alanine Aminotransferase 9 U/L (0-33); Albumin Level 2.4 g/dL (3.5-5.2); Alkaline Phosphatase 90 U/L (35-105); Anion Gap 12.6 (5-19); Aspartate Amino Transferase 18 U/L (0-32); Blood Urea Nitrogen 13 mg/dL (8-23); Calcium 7.7 mg/dL (8.5-10.5); Carbon Dioxide 22 mmol/L (22-29); Chloride 111 mmol/L (98-107); Globulin 3.5 g/dL (1.3-4.6); Glucose 86 mg/dL (65-115); Osmolality Calculated 293 mOsm/kg (285-295); Potassium 3.6 mmol/L (3.5-5.1); Sodium 142 mmol/L (136-145); Total Protein 5.9 g/dL (6.6-8.7)
[2023-05-15] MEDS: meropenem 1,000 MG in sodium chloride 0.9% (plus) 50 ML 100 MG IV ×3 (06:46→22:09)
[2023-05-15] MEDS: sertraline 50 mg Tablet 25 MG PO (06:48)
[2023-05-15] MEDS: gabapentin 300 mg Capsule PO ×2 (08:54→12:55)
[2023-05-15 09:22] LABS: Hematocrit 28.2 % (36-47)
[2023-05-15] MEDS: sodium chloride 0.9% 1,000 ML 50 ML IV (10:40)
--- NOTE | 2023-05-15 12:08 | P.PN_ITS ---
Subjective 2 Subjective: Patient was seen this morning, continues to have intermittent episodes of loose bowel movements, some of them are bloody, spoke to nursing staff, there dark red blood, no brisk bleeding, she denies any lightheadedness, no dizziness, hemoglobin stable at 8.7, hemodynamics have been stable, will continue to monitor closely, keep n.p.o., I discussed with her that currently work conservatively managing her, trying to avoid any aggressive interventions, however for hemodynamics declined, or her bloody or black stools become profuse, or if hemoglobin drops then will consider discussing with general surgery about performing an EGD and/or colonoscopy, she understands this, Vitals/I&O/Wt Last Vital Signs Temp 97.6 F 05/15/23 11:39 Pulse 88 05/15/23 11:39 Resp 15 05/15/23 11:39 BP 124/68 05/15/23 11:39 Pulse Ox 96 05/15/23 11:39 O2 Del Method Room Air 05/15/23 11:39 05/14/23 05/15/23 05/15/23 22:59 06:59 14:59 Intake Total 150 / 150 1015 / 1165 1050 / 1050 Balance 150 / 150 1015 / 1165 1050 / 1050 Weight last 48 hrs Weight 66.735 kg Weight 66.905 kg Weight 67.585 kg Physical Exam 2 Const: COMMON NORMALS: no acute distress and patient oriented x3 Resp: COMMON NORMALS: normal respiratory effort, No retractions, No use of accessory muscles and clear to auscultation bilaterally AUSCULTATION: clear to auscultation bilaterally Cardio: COMMON NORMALS: regular rate, regular rhythm, S1 normal heart sound present and S2 normal heart sound present RATE: regular rate RHYTHM: r egular rhythm HEART SOUNDS: S1 normal heart sound present and S2 normal heart sound present GI: COMMON NORMALS: Normal to inspection, nondistended, normoactive bowel sounds present and non-tender Extremity: COMMON NORMALS: no pedal edema Neuro: COMMON NORMALS: patient oriented x3 Psych: COMMON NORMALS: mental status grossly normal Data 05/15/23 09:15 05/15/23 05:40 Micro: Microbiology 05/14/23 08:40 Urine Culture - Preliminary Urine Catheterized Strep species, gamma-hemolytic A&P Assessment and plan (1) GI bleed: Patient presents with bright red stools and had 1 episode of bright red stool while in the emergency room. CT scan shows sigmoid diverticula, does have a history of liver cirrhosis Patient's hemoglobin noted to be 8.7. Patient on home dose of aspirin and Plavix. Status post 1 unit PRBC Continues to have intermittent dark red bowel movements Hemodynamics are stable Protonix 40 IV twice daily, ? Carafate 1 g twice daily ? Keep n.p.o. ? IV fluids Will hold off on any scope procedures due to increased risk as this might be likely due to medication induced and will further evaluate if needed. She also has thrombocytopenia, cirrhosis, evidence of abdominal varices. I think there is a high risk of esophageal varices on EGD. Her current bleed appears to be lower GI in origin. I discussed with her, her guardian, about possible endoscopy in [place] in the future as they would be able to do surveillance for varices and banding of varices if needed. At this point they are agreeable to blood transfusion, stopping antiplatelets, and stabilization. If she worsen greatly they are amenable to transfer. They are not eager to have any procedures done currently, which I think is reasonable at this time. (2) CAD in [place] artery: Recent echocardiogram was performed LVEF estimation 65%. Possible hypokinesis of apical septal, apical inferior and apical diaz. Normal diastolic function. Mild tricuspid valve regurg severe pulmonary hypertension with pulmonary artery pressure estimated at 59 mmHg. No present RV strain (3) Cirrhosis: Liver function test at this time is not within normal limits. Continue to monitor (4) Pleural effusion: X-ray confirmed small bilateral pleural effusions. Stable at this time. Not in any respiratory distress. (5) UTI (urinary tract infection): Initiate meropenem Urine culture Organisms have been relatively resistant in the past, and this may be a more ideal antibiotic considering her allergies to cefepime, Cipro, amoxicillin, quinolones, sulfa Plan CODE STATUS: Full code. The patient is unable to answer questions for herself, Liset TALBERT, who asked her questions and place the patient. DVT prophylaxis: SCDs Attestations 2 Medical Necessity Statement*: Patient requires hospitalization patient, for lower GI bleed, with underlying liver cirrhosis Diagnoses GI bleed K92.2 CAD in [place] artery I25.10 Cirrhosis K74.60 Pleural effusion J90 UTI (urinary tract infection) N39.0
[2023-05-15 12:34] LABS: Ferritin 126 ng/mL (15-150); Iron 58 ug/dL (37-145); Percent Saturation 38.4 % (20-50); Total Iron Binding Capacity 151 mcg/dl; Unsaturated Iron Binding 93 ug/dL (112-347)
[2023-05-15] MEDS: sucralfate 1 gm Tablet PO (12:55)
[2023-05-15 13:24] LABS: Hematocrit 28.5 % (36-47)
[2023-05-15 13:37] LABS: INR 1.29 (0.8-1.2)
[2023-05-15 17:01] LABS: Hematocrit 26.9 % (36-47)
[2023-05-15] MEDS: gabapentin 300 mg Capsule 600 MG PO (17:34)
[2023-05-15] MEDS: morphine 10 mg/0.5 mL oral liq UD PO ×2 (18:18→22:09)
[2023-05-15 21:57] LABS: Hematocrit 24.7 % (36-47)
[2023-05-16] VITALS (9 sets, daily range): BP systolic 125–136; BP diastolic 51–72; PULSE 81–98; RESP 14–18; TEMP 36.4–36.9; O2SAT 94–96; BMI 29.0
[2023-05-16 00:46] LABS: Hematocrit 25.3 % (36-47)
[2023-05-16] MEDS: sucralfate 1 gm Tablet PO ×2 (01:00→11:24)
[2023-05-16] MEDS: sodium chloride 0.9% 1,000 ML 100 ML IV ×3 (01:02→20:30)
[2023-05-16] MEDS: morphine 10 mg/0.5 mL oral liq UD PO (01:05)
[2023-05-16] MEDS: pantoprazole 40 mg SDV IVP ×2 (01:08→16:43)
[2023-05-16 01:55] LABS: Hematocrit 25.2 % (36-47)
[2023-05-16 04:51] LABS: Basophils % 0.6 %; Eosinophils # 0.5 10^3/uL (0.0-0.8); Eosinophils % 14.9 %; Hematocrit 24.9 % (36-47); Lymphocytes # 0.6 10^3/uL (0.8-4.8); Lymphocytes % 17.3 %; Mean Corpuscular HGB Conc 30.5 g/dL (30-55); Mean Corpuscular Hemoglobin 30.6 pg (27-33); Mean Corpuscular Volume 100.4 fl (85-98); Mean Platelet Volume 10.4 fL (7.4-10.4); Monocytes # 0.4 10^3/uL (0.2-0.9); Monocytes % 11.9 %; Neutrophils # 1.85 10^3/uL (1.8-7.7); Nucleated Red Blood Cells % 0 %; Platelet Count 77 10^3/cmm (157-399); Red Blood Count 2.48 10^6/uL (3.85-5.65); Red Cell Distribution Width 16.5 % (12.1-15.1); White Blood Count 3.36 10^3/uL (3.29-11.43)
[2023-05-16 05:12] LABS: Alanine Aminotransferase 8 U/L (0-33); Albumin Level 2.5 g/dL (3.5-5.2); Alkaline Phosphatase 91 U/L (35-105); Anion Gap 15.8 (5-19); Aspartate Amino Transferase 19 U/L (0-32); Blood Urea Nitrogen 13 mg/dL (8-23); Calcium 7.6 mg/dL (8.5-10.5); Carbon Dioxide 19 mmol/L (22-29); Chloride 113 mmol/L (98-107); Globulin 3.4 g/dL (1.3-4.6); Glucose 72 mg/dL (65-115); Magnesium 1.7 mg/dL (1.7-2.3); Osmolality Calculated 297 mOsm/kg (285-295); Phosphorus 2.4 mg/dL (2.5-4.5); Potassium 3.8 mmol/L (3.5-5.1); Sodium 144 mmol/L (136-145); Total Protein 5.9 g/dL (6.6-8.7)
[2023-05-16] MEDS: sertraline 50 mg Tablet 25 MG PO (06:23)
[2023-05-16] MEDS: meropenem 1,000 MG in sodium chloride 0.9% (plus) 50 ML 100 MG IV ×2 (06:23→15:33)
[2023-05-16] MEDS: acetaminophen 325 mg Tablet 650 MG PO (06:29)
[2023-05-16] MEDS: gabapentin 300 mg Capsule PO ×2 (08:11→11:24)
--- NOTE | 2023-05-16 13:06 | P.PN_ITS ---
Subjective 2 Subjective: Patient was seen this morning, she is alert to person, to place, to time she follows all commands she tells me that her abdominal pain is significantly improved, she does report intermittent bloody stools, very minimally bloody, she tells me that she has noticed scant blood on her stools, overall she feels she is significantly improving Vitals/I&O/Wt Last Vital Signs Temp 97.9 F 05/16/23 12:00 Pulse 81 05/16/23 12:00 Resp 18 05/16/23 12:00 BP 126/68 05/16/23 12:00 Pulse Ox 95 05/16/23 12:00 O2 Del Method Room Air 05/16/23 12:00 05/15/23 05/16/23 05/16/23 22:59 06:59 14:59 Intake Total 666.667 / 1716.667 303.333 / 2020.000 985 / 985 Output Total 400 / 400 Balance 666.667 / 1716.667 -96.667 / 1620.000 985 / 985 Weight last 48 hrs Weight 67.585 kg Weight 66.735 kg Weight 66.905 kg Physical Exam 2 Const: COMMON NORMALS: no acute distress and patient oriented x3 Resp: COMMON NORMALS: normal respiratory effort, No retractions, No use of accessory muscles and clear to auscultation bilaterally AUSCULTATION: clear to auscultation bilaterally Cardio: COMMON NORMALS: regular rate, regular rhythm, S1 normal heart sound present and S2 normal heart sound present RATE: regular rate RHYTHM: r egular rhythm HEART SOUNDS: S1 normal heart sound present and S2 normal heart sound present GI: COMMON NORMALS: Normal to inspection, nondistended, normoactive bowel sounds present and non-tender Extremity: COMMON NORMALS: no pedal edema Neuro: COMMON NORMALS: patient oriented x3 Psych: COMMON NORMALS: mental status grossly normal Data 05/16/23 09:41 05/16/23 04:26 Micro: Microbiology 05/14/23 08:40 Urine Culture - Preliminary Urine Catheterized Strep species, gamma-hemolytic A&P Assessment and plan (1) GI bleed: Patient presents with bright red stools and had 1 episode of bright red stool while in the emergency room. Continues to have scant bloody bowel movements, and looked at her bowel movement this morning, very scantly speckles of blood, CT scan shows sigmoid diverticula, does have a history of liver cirrhosis Patient's hemoglobin noted to be 8.4 Patient on home dose of aspirin and Plavix. Currently on hold Likely lower GI bleed Status post 1 unit PRBC Continues to have intermittent dark red bowel movements Hemodynamics are stable Protonix 40 IV twice daily, ? Carafate 1 g twice daily ? Will transition to clears ? IV fluids Will hold off on any scope procedures due to increased risk as this might be likely due to medication induced and will further evaluate if needed. She also has thrombocytopenia, cirrhosis, evidence of abdominal varices. I think there is a high risk of esophageal varices on EGD. Her current bleed appears to be lower GI in origin. I discussed with her, her guardian, about possible endoscopy in [place] in the future as they would be able to do surveillance for varices and banding of varices if needed. At this point they are agreeable to blood transfusion, stopping antiplatelets, and stabilization. If she worsen greatly they are amenable to transfer. They are not eager to have any procedures done currently, which I think is reasonable at this time. (2) CAD in [place] artery: Recent echocardiogram was performed LVEF estimation 65%. Possible hypokinesis of apical septal, apical inferior and apical diaz. Normal diastolic function. Mild tricuspid valve regurg severe pulmonary hypertension with pulmonary artery pressure estimated at 59 mmHg. No present RV strain (3) Cirrhosis: Liver function test at this time is not within normal limits. Continue to monitor (4) Pleural effusion: X-ray confirmed small bilateral pleural effusions. Stable at this time. Not in any respiratory distress. (5) UTI (urinary tract infection): Initiate meropenem Urine culture Organisms have been relatively resistant in the past, and this may be a more ideal antibiotic considering her allergies to cefepime, Cipro, amoxicillin, quinolones, sulfa Plan CODE STATUS: Full code. The patient is unable to answer questions for herself, Liset TALBERT, who asked her questions and place the patient. DVT prophylaxis: SCDs Attestations 2 Medical Necessity Statement*: Patient requires hospitalization for concerns for lower GI bleed Diagnoses GI bleed K92.2 CAD in [place] artery I25.10 Cirrhosis K74.60 Pleural effusion J90 UTI (urinary tract infection) N39.0
[2023-05-16 14:05] LABS: Hematocrit 27.9 % (36-47)
[2023-05-16] MEDS: gabapentin 300 mg Capsule 600 MG PO (17:42)
[2023-05-16 17:54] LABS: Hematocrit 28.5 % (36-47)
[2023-05-17] VITALS (8 sets, daily range): BP systolic 126–168; BP diastolic 60–79; PULSE 85–90; RESP 16–18; TEMP 36.7–36.9; O2SAT 94–95; BMI 30.4
[2023-05-17] MEDS: sucralfate 1 gm Tablet PO ×2 (00:44→23:08)
[2023-05-17] MEDS: meropenem 1,000 MG in sodium chloride 0.9% (plus) 50 ML 100 MG IV ×4 (00:44→23:06)
[2023-05-17] MEDS: pantoprazole 40 mg SDV IVP ×2 (02:56→16:31)
[2023-05-17] MEDS: morphine 10 mg/0.5 mL oral liq UD PO ×2 (03:10→06:09)
[2023-05-17 04:41] LABS: Basophils % 0.8 %; Eosinophils # 0.6 10^3/uL (0.0-0.8); Hematocrit 27.2 % (36-47); Lymphocytes # 0.6 10^3/uL (0.8-4.8); Lymphocytes % 15.9 %; Mean Corpuscular HGB Conc 29.4 g/dL (30-55); Mean Corpuscular Hemoglobin 30.8 pg (27-33); Mean Corpuscular Volume 104.6 fl (85-98); Monocytes # 0.5 10^3/uL (0.2-0.9); Monocytes % 14.1 %; Neutrophils # 1.96 10^3/uL (1.8-7.7); Neutrophils % 51.9 %; Nucleated Red Blood Cells % 0 %; Platelet Count 81 10^3/cmm (157-399); Red Cell Distribution Width 16.7 % (12.1-15.1); White Blood Count 3.77 10^3/uL (3.29-11.43)
[2023-05-17 05:00] LABS: Alanine Aminotransferase 8 U/L (0-33); Albumin Level 2.6 g/dL (3.5-5.2); Alkaline Phosphatase 95 U/L (35-105); Aspartate Amino Transferase 25 U/L (0-32); Blood Urea Nitrogen 14 mg/dL (8-23); Calcium 7.6 mg/dL (8.5-10.5); Carbon Dioxide 21 mmol/L (22-29); Chloride 115 mmol/L (98-107); Globulin 3.7 g/dL (1.3-4.6); Glucose 104 mg/dL (65-115); Magnesium 1.7 mg/dL (1.7-2.3); Osmolality Calculated 295 mOsm/kg (285-295); Sodium 142 mmol/L (136-145); Total Bilirubin 0.8 mg/dL (0.15-1.2); Total Protein 6.3 g/dL (6.6-8.7)
[2023-05-17] MEDS: acetaminophen 325 mg Tablet 650 MG PO (06:12)
[2023-05-17] MEDS: sertraline 50 mg Tablet 25 MG PO (06:20)
[2023-05-17] MEDS: sodium chloride 0.9% 1,000 ML 100 ML IV ×2 (06:20→23:11)
[2023-05-17] MEDS: gabapentin 300 mg Capsule PO (08:31)
--- NOTE | 2023-05-17 11:08 | PM.PN ---
Subjective Subjective: Patient was seen this morning, she tells me she continues to have intermittent abdominal pain, her bloody stools to some degree persist, no lightheadedness, no dizziness, she tells me she has external hemorrhoids that tend to bleed she feels that to some degree her bleeding is from those hemorrhoids, she tells me that when she has a bowel movement she tends to strain, Vitals/I&O/Wt Last Vital Signs Temp 98.2 F 05/17/23 08:00 Pulse 88 05/17/23 08:00 Resp 16 05/17/23 08:00 BP 126/68 05/17/23 08:00 Pulse Ox 95 05/17/23 08:00 O2 Del Method Room Air 05/17/23 08:00 05/16/23 05/17/23 05/17/23 22:59 06:59 14:59 Intake Total 1611.667 / 2596.667 1033.333 / 3630.000 360 / 360 Balance 1611.667 / 2596.667 1033.333 / 3630.000 360 / 360 Weight last 48 hrs Weight 70.562 kg Weight 67.585 kg Physical Exam Const: COMMON NORMALS: no acute distress and patient oriented x3 Resp: COMMON NORMALS: normal respiratory effort, No retractions, No use of accessory muscles and clear to auscultation bilaterally AUSCULTATION: clear to auscultation bilaterally Cardio: COMMON NORMALS: regular rate, regular rhythm, S1 normal heart sound present and S2 normal heart sound present RATE: regular rate RHYTHM: regular rhythm HEART SOUNDS: S1 normal heart sound present and S2 normal heart sound present GI: COMMON NORMALS: Normal to inspection, nondistended, normoactive bowel sounds present and non-tender Extremity: COMMON NORMALS: no pedal edema Neuro: COMMON NORMALS: patient oriented x3 Data 05/17/23 03:55 05/17/23 03:55 Micro: Microbiology 05/14/23 08:40 Urine Culture - Final Urine Catheterized Enterococcus faecium A&P Assessment and plan (1) GI bleed: Patient presents with bright red stools and had 1 episode of bright red stool while in the emergency room. Continues to have scant bloody bowel movements, and looked at her bowel movement this morning, very scantly speckles of blood, CT scan shows sigmoid diverticula, does have a history of liver cirrhosis Patient's hemoglobin noted to be 8.0 Patient on home dose of aspirin and Plavix. Currently on hold Likely lower GI bleed, possibly initially a diverticular bleed, ? I think that her persistent episodes of bloody stools are likely secondary to hemorrhoidal bleeding Status post 1 unit PRBC Hemodynamics are stable Protonix 40 IV twice daily, ? Carafate 1 g twice daily ? Will transition to GI soft diet ? IV fluids Will hold off on any scope procedures due to increased risk as this might be likely due to medication induced and will further evaluate if needed. She also has thrombocytopenia, cirrhosis, evidence of abdominal varices. I think there is a high risk of esophageal varices on EGD. Her current bleed appears to be lower GI in origin. I discussed with her, her guardian, about possible endoscopy in [place] in the future as they would be able to do surveillance for varices and banding of varices if needed. At this point they are agreeable to blood transfusion, stopping antiplatelets, and stabilization. If she worsen greatly they are amenable to transfer. They are not eager to have any procedures done currently, which I think is reasonable at this time. (2) CAD in [place] artery: Recent echocardiogram was performed LVEF estimation 65%. Possible hypokinesis of apical septal, apical inferior and apical diaz. Normal diastolic function. Mild tricuspid valve regurg severe pulmonary hypertension with pulmonary artery pressure estimated at 59 mmHg. No present RV strain (3) Cirrhosis: Liver function test at this time is not within normal limits. Continue to monitor (4) Pleural effusion: X-ray confirmed small bilateral pleural effusions. Stable at this time. Not in any respiratory distress. (5) UTI (urinary tract infection): Initiate meropenem Urine culture Organisms have been relatively resistant in the past, and this may be a more ideal antibiotic considering her allergies to cefepime, Cipro, amoxicillin, quinolones, sulfa Plan CODE STATUS: Full code. The patient is unable to answer questions for herself, Liset TALBERT, who asked her questions and place the patient. DVT prophylaxis: SCDs Attestations Medical Necessity Statement*: Patient requires hospitalization for lower GI bleed Diagnoses GI bleed K92.2 CAD in [place] artery I25.10 Cirrhosis K74.60 Pleural effusion J90 UTI (urinary tract infection) N39.0
[2023-05-17] MEDS: gabapentin 300 mg Capsule 600 MG PO (17:22)
[2023-05-18] VITALS (17 sets, daily range): BP systolic 117–160; BP diastolic 52–78; PULSE 83–94; RESP 16–22; TEMP 36.5–37.2; O2SAT 92–100
[2023-05-18] MEDS: pantoprazole 40 mg SDV IVP ×2 (03:16→15:33)
[2023-05-18] MEDS: acetaminophen 325 mg Tablet 650 MG PO ×2 (03:17→23:06)
[2023-05-18 05:46] LABS: Basophils % 0.8 %; Eosinophils # 0.7 10^3/uL (0.0-0.8); Eosinophils % 18.9 %; Hematocrit 25.1 % (36-47); Lymphocytes # 0.6 10^3/uL (0.8-4.8); Lymphocytes % 16.1 %; Mean Corpuscular HGB Conc 30.3 g/dL (30-55); Mean Corpuscular Volume 102.4 fl (85-98); Mean Platelet Volume 10.5 fL (7.4-10.4); Monocytes # 0.5 10^3/uL (0.2-0.9); Monocytes % 13.2 %; Neutrophils % 50.7 %; Nucleated Red Blood Cells % 0 %; Platelet Count 77 10^3/cmm (157-399); Red Blood Count 2.45 10^6/uL (3.85-5.65); Red Cell Distribution Width 16.3 % (12.1-15.1); White Blood Count 3.55 10^3/uL (3.29-11.43)
[2023-05-18 06:11] LABS: Alanine Aminotransferase 10 U/L (0-33); Albumin Level 2.6 g/dL (3.5-5.2); Alkaline Phosphatase 96 U/L (35-105); Anion Gap 11.8 (5-19); Aspartate Amino Transferase 22 U/L (0-32); Blood Urea Nitrogen 9 mg/dL (8-23); Calcium 7.7 mg/dL (8.5-10.5); Carbon Dioxide 21 mmol/L (22-29); Chloride 112 mmol/L (98-107); Globulin 3.3 g/dL (1.3-4.6); Glucose 108 mg/dL (65-115); Magnesium 1.6 mg/dL (1.7-2.3); Osmolality Calculated 291 mOsm/kg (285-295); Phosphorus 1.6 mg/dL (2.5-4.5); Potassium 3.8 mmol/L (3.5-5.1); Sodium 141 mmol/L (136-145); Total Bilirubin 1.1 mg/dL (0.15-1.2); Total Protein 5.9 g/dL (6.6-8.7)
[2023-05-18] MEDS: sertraline 50 mg Tablet 25 MG PO (06:48)
[2023-05-18] MEDS: meropenem 1,000 MG in sodium chloride 0.9% (plus) 50 ML 100 MG IV (06:49)
[2023-05-18] MEDS: linezolid 600 mg Tablet PO ×2 (08:54→21:10)
[2023-05-18] MEDS: gabapentin 300 mg Capsule PO ×2 (08:57→11:08)
--- NOTE | 2023-05-18 09:17 | PC.CHAP ---
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 pipe insulator visit [] Patient/Family/Request visit [] Outpatient visit [] Follow-up visit [] Physician referral [] Code/Alert [] Routine visit [] Staff referral [] Actively dying [] Patient sleeping [] Family support [] [] Out of room [] Palliative care [] [x] Receiving care in room [] Pre-surgical visit [] Trauma [] Long length of stay [] ICU visit [] Other: Relational/Emotional Strength [] Patient feels connected with others/family/visitors/staff [] Distress [] Loneliness/isolation [] Abandonment Spirituality of Patient [] Person of Sujatha [] Attends Caodaism of their Sujatha [] Believes in Prayer [] Reads Bible or Congregational materials [] There are Spiritual issues to be addressed 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 [] Prayer [] Active listening [] Non-anxious presence [] Spiritual/emotional support [] Crisis/trauma care [] Spiritual counseling [] Bereavement support [] Provided bereavement packet [] Provided Bible/devotional materials [] Provided toy/stuffed animal, coloring book to patient or family member [] Provided Communion [] Anointing/[place] [] Salvation [] Completed spiritual assessment [] Other: Impact on Illness or Injury [] Angry [] Fearful [] Anxious [] Often cries [] Exhaustion [] Unable to work [] Unable to attend confucianist [] Unable to walk/stand [] Unable to read [] Unable to drive [] Unable to eat/drink [] Unable to sleep [] Unable to be with family [] Patient intubated [] Other: Summary Time spent with patient
--- NOTE | 2023-05-18 09:48 | XRR_ITS ---
PROCEDURE INFORMATION: Exam: XR Chest Exam date and time: 05/18/2023 10:58 AM Age: 83 years old Clinical indication: Shortness of breath; Additional info: Wheezing TECHNIQUE: Imaging protocol: Radiologic exam of the chest. Views: 1 view. COMPARISON: CR XR chest 1V portable [id number] 05/14/2023 8:08 AM FINDINGS: Lungs: Bilateral lower lobe infiltrates/effusions. Chronic changes left upper lobe. Pleural spaces: Unremarkable. No pleural effusion. No pneumothorax. Heart/Mediastinum: Unremarkable. No cardiomegaly. Bones/joints: Unremarkable. XR/XR chest 1V portable [id number] IMPRESSION: 1. Bilateral lower lobe infiltrate/effusion. 2. Chronic changes left upper lobe.
[2023-05-18 10:31] LABS: NT Pro B Type Natriuretic Pept 406 pg/mL (0-450)
[2023-05-18] MEDS: sucralfate 1 gm Tablet PO ×2 (11:08→23:06)
--- NOTE | 2023-05-18 11:28 | PC.NURSE ---
Upon my assessment this morning, pt was found to have expiratory wheezing and upon further discussion, pt informed me that she is on 3L baseline, but was not on any oxygen here since admission 4 days prior. I placed pt on 3L NC and informed RT Brad and Dr. Aguero. Order placed for RT.
--- NOTE | 2023-05-18 13:33 | PC.SOCIAL ---
IMM Updated Updated pt on IMM. No questions voiced. Provided pt a copy. Initialed, dated, & timed copy in chart.
--- NOTE | 2023-05-18 14:06 | P.PN_ITS ---
Subjective 2 Subjective: Patient was seen this morning, she continues to complain of bowel movements, with scant blood, although improved, she does feel fatigue and tired she is worried about going home with continued bleeding, she thinks it is the hemorrhoids, as she strains while she has a bowel movement, hemoglobin 7.6, will give her a unit of blood, we discussed discussing with general surgery consideration of evaluation of he possible colonoscopy,, she is agreeable Vitals/I&O/Wt Last Vital Signs Temp 98.0 F 05/18/23 11:56 Pulse 91 05/18/23 11:56 Resp 20 H 05/18/23 11:56 BP 153/73 05/18/23 11:56 Pulse Ox 100 05/18/23 11:56 O2 Del Method Nasal Cannula 05/18/23 11:56 O2 Flow Rate 3 05/18/23 10:05 05/17/23 05/18/23 05/18/23 22:59 06:59 14:59 Intake Total 1530 / 2300 50 / 2350 1530 / 1530 Output Total 200 / 200 Balance 1330 / 2100 50 / 2150 1530 / 1530 Weight last 48 hrs Weight 70.562 kg Weight 70.562 kg Physical Exam 2 Const: COMMON NORMALS: no acute distress and patient oriented x3 Resp: COMMON NORMALS: normal respiratory effort, No retractions, No use of accessory muscles and clear to auscultation bilaterally AUSCULTATION: clear to auscultation bilaterally Cardio: COMMON NORMALS: regular rate, regular rhythm, S1 normal heart sound present and S2 normal heart sound present RATE: regular rate RHYTHM: r egular rhythm HEART SOUNDS: S1 normal heart sound present and S2 normal heart sound present GI: COMMON NORMALS: Normal to inspection, nondistended, normoactive bowel sounds present and non-tender Extremity: COMMON NORMALS: no pedal edema Neuro: COMMON NORMALS: patient oriented x3 Psych: COMMON NORMALS: mental status grossly normal Data 05/18/23 05:24 05/18/23 05:24 A&P Assessment and plan (1) GI bleed: Patient presents with bright red stools and had 1 episode of bright red stool while in the emergency room. Continues to have scant bloody bowel movements, and looked at her bowel movement this morning, very scantly speckles of blood, CT scan shows sigmoid diverticula, does have a history of liver cirrhosis Patient's hemoglobin noted to be7.6 Patient on home dose of aspirin and Plavix. Currently on hold Likely lower GI bleed, possibly initially a diverticular bleed, ? I think that her persistent episodes of bloody stools are likely secondary to hemorrhoidal bleeding Status post 1 unit PRBC, hemoglobin 7.6 we will give another unit of blood today Hemodynamics are stable Protonix 40 IV twice daily, ? Carafate 1 g twice daily ? Will transition to GI soft diet ? IV fluids As she continues to bleed, likely hemorrhoidal bleed, but she is requiring transfusions admitted consult general surgery for consideration of colonoscopy or possible intervention for hemorrhoids possible hemorrhoidectomy (2) CAD in [place] artery: Recent echocardiogram was performed LVEF estimation 65%. Possible hypokinesis of apical septal, apical inferior and apical diaz. Normal diastolic function. Mild tricuspid valve regurg severe pulmonary hypertension with pulmonary artery pressure estimated at 59 mmHg. No present RV strain (3) Cirrhosis: Liver function test at this time is not within normal limits. Continue to monitor (4) Pleural effusion: X-ray confirmed small bilateral pleural effusions. Stable at this time. Not in any respiratory distress. (5) UTI (urinary tract infection): Switch to p.o. Zyvox, Enterococcus species Urine culture Organisms have been relatively resistant in the past, and this may be a more ideal antibiotic considering her allergies to cefepime, Cipro, amoxicillin, quinolones, sulfa Plan CODE STATUS: Full code. The patient is unable to answer questions for herself, Liset TALBERT, who asked her questions and place the patient. DVT prophylaxis: SCDs Attestations 2 Medical Necessity Statement*: Patient requires hospitalization for persistent bloody stools and anemia requiring blood transfusions General surgery consult Diagnoses GI bleed K92.2 CAD in [place] artery I25.10 Cirrhosis K74.60 Pleural effusion J90 UTI (urinary tract infection) N39.0
--- NOTE | 2023-05-18 14:42 | P.CONIM_ITS ---
Providers/Reason For Consult 2 Consulting Physician/Specialty*: General surgery Reason for Consult*: Lower GI bleed Attending Physician: Kevin Aguero MD Primary Care Provider: Sudheer Wood MD History of Present Illness History of Present Illness Daksha Machuca is a 83 year old female with multiple medical comorbidities, she was recently admitted to the hospital noted to have a possible lower GI bleed as evidenced by blood-tinged on the stools and a downtrend of her hemoglobin. I have been consulted today for evaluation as patient complains of straining while having a bowel movement possible hemorrhoid as the cause for her bleeding. Review of Systems 2 General: Reports: 10 or more systems reviewed and unremarkable except in HPI and below Medications/Allergies Home Medications Medication Instructions Recorded Confirmed Last Taken Type bisacodyl 10 mg rectal suppository 10 mg VT DAILY PRN Constipation 07/14/19 05/14/23 Unknown History polyethylene glycol 3350 17 17 gm PO Q2D 08/30/19 05/14/23 09/22/21 History gram/dose oral powder (Miralax) fluticasone propionate 50 1 spray intranasal BID@01/09/21 05/14/23 Unknown History mcg/actuation nasal spray,suspension magnesium hydroxide 400 mg/5 mL 30 ml PO Q24H PRN Constipation 01/09/21 05/14/23 Unknown History oral suspension (Milk of Magnesia) sertraline 25 mg tablet 25 mg PO DAILY@08/22/21 05/14/23 Unknown History gabapentin 600 mg tablet 600 mg PO DAILY 09/24/21 05/14/23 Unknown History multivitamin 1 tab PO DAILY@09/24/21 05/14/23 Unknown History ondansetron HCl 4 mg tablet 4 mg PO Q4H PRN Nausea And Vomiting 09/24/21 05/14/23 Unknown History sennosides 8.6 mg-docusate sodium 2 tab PO BID@09/24/21 05/14/23 Unknown History 50 mg tablet (Stool Softener-Laxative) sodium phosphates 19 gram-7 118 ml VT DAILY PRN Constipation 09/24/21 05/14/23 Unknown History gram/118 mL enema (Gvnbg-Ym-Mnv Enema) aspirin 81 mg tablet,delayed 81 mg PO DAILY 30 days #30 tabs 10/04/21 05/14/23 Unknown Rx release clopidogrel 75 mg tablet (Plavix) 75 mg PO DAILY 30 days #30 tabs 10/04/21 05/14/23 Unknown Rx potassium chloride 20 mEq 20 meq PO DAILY #30 tabs 10/04/21 05/14/23 Unknown Rx tablet,extended release(part/cryst) (Klor-Con M) solifenacin 5 mg tablet (Vesicare) 5 mg PO DAILY #30 tabs 01/06/22 05/14/23 Unknown Rx acetaminophen 325 mg tablet 650 mg PO Q4H PRN Pain 03/23/23 05/14/23 Unknown History calcium carbonate 500 mg calcium 500 mg PO BID 03/23/23 05/14/23 Unknown History (1,250 mg) chewable tablet cocoa butter-shark liver oil 1 supp VT DAILY PRN Hemorrhoids 03/23/23 05/14/23 Unknown History rectal suppository diclofenac sodium 1 % topical gel See Rx Instructions .Route .COMPLEX 03/23/23 05/14/23 Unknown History famotidine 20 mg tablet 20 mg PO BID 03/23/23 05/14/23 Unknown History furosemide 40 mg tablet 40 mg PO DAILY 03/23/23 05/14/23 Unknown History gabapentin 300 mg capsule 300 mg PO BID 03/23/23 05/14/23 Unknown History loperamide 2 mg tablet (Imodium 2 mg PO Q6H PRN Diarrhea 03/23/23 05/14/23 Unknown History A-D) morphine 20 mg/5 mL (4 mg/mL) oral See Rx Instructions .Route 03/23/23 05/14/23 Unknown History solution .COMPLEX PRN Pain nitroglycerin 0.4 mg sublingual 0.4 mg sublingual Q5M PRN Chest 03/23/23 05/14/23 Unknown History tablet (Nitrostat) Pain pantoprazole 40 mg tablet,delayed 40 mg PO DAILY #30 tabs 03/26/23 05/14/23 Unknown Rx release carboxymethylcellulose sodium 1 % 1 drp ophthalmic (eye) TID PRN Dry 05/14/23 05/14/23 Unknown History eye liquid gel drops Eyes lanolin alcohols-mineral 1 applic topical DAILY PRN Dry Skin 05/14/23 05/14/23 Unknown History oil-w.petrolatum-ceresin topical cream (Eucerin topical cream) nystatin 100,000 unit/gram topical 1 applic topical BID y 05/14/23 05/14/23 Unknown History powder Allergies Allergy/AdvReac Type Severity Reaction Status Date / Time amoxicillin Allergy Unknown Verified 05/11/23 11:06 cefepime Allergy Unknown Verified 05/11/23 11:06 ciprofloxacin [From Cipro] Allergy Unknown Verified 05/11/23 11:06 codeine Allergy Unknown Verified 05/11/23 11:06 Influenza Virus Vaccines Allergy Unknown Verified 05/11/23 11:06 iodine Allergy Unknown Verified 05/11/23 11:06 Quinolones Allergy Unknown Verified 05/11/23 11:06 Sulfa (Sulfonamide Allergy Unknown Verified 05/11/23 11:06 Antibiotics) Sulfonylureas Allergy Unknown Verified 05/11/23 11:06 Current Medications Generic Name Dose Route Start Last Admin Trade Name Freq PRN Reason Stop Dose Admin Acetaminophen 650 mg 05/14/23 14:05 05/18/23 03:17 Acetaminophen 325 Mg Tablet PO 650 mg Q6H PRN Administration Mild/Mod Pain Or Temp >/= 101 Gabapentin 600 mg 05/15/23 18:00 05/17/23 17:22 Gabapentin 300 Mg Capsule PO 600 mg QPM RAMO Administration Gabapentin 300 mg 05/15/23 09:00 05/18/23 11:08 Gabapentin 300 Mg Capsule PO 300 mg 0900,1200 RAMO Administration Sodium Chloride 1,000 mls @ 50 mls/hr 05/14/23 14:05 05/18/23 09:16 Sodium Chloride 0.9% IV Infused .Q20H RAMO Infusion Linezolid 600 mg 05/18/23 09:00 05/18/23 08:54 Linezolid 600 Mg Tablet PO 600 mg Q12H RAMO Administration Protocol Morphine Sulfate 1 mg 05/15/23 13:54 05/17/23 06:09 Morphine 10 Mg/0.5 Ml Oral Liq Ud PO 1 mg Q2H PRN Administration Pain Pantoprazole Sodium 40 mg 05/14/23 14:05 05/18/23 03:16 Pantoprazole 40 Mg Sdv IVP 40 mg Q12H RAMO Administration Sertraline HCl 25 mg 05/15/23 07:00 05/18/23 06:48 Sertraline 50 Mg Tablet PO 25 mg DAILY@07 RAMO Administration Sucralfate 1 gm 05/15/23 09:00 05/18/23 11:08 Sucralfate 1 Gm Tablet PO 1 gm Q12H RAMO Administration PFSH Acute 2 PFSH: Medical History Bacteremia Thrombocytopenia Diabetes Gout Hypothyroidism Acute UTI Altered mental status Non-ST elevation [place] (NSTEMI) Confusion Urolithiasis Retained ureteral stent Cystitis cystica History of diabetes mellitus History of CVA (cerebrovascular accident) GERD (gastroesophageal reflux disease) Peripheral artery disease Hypertension Chronic back pain Osteoarthritis Polyneuropathy Post herpetic neuralgia CAD in [place] artery Chronic cystitis Surgical History H/O bladder repair surgery S/P tonsillectomy Hip fracture History of cataract surgery History of cholecystectomy H/O: hysterectomy Family History Other Renal cancer Social History Smoking and tobacco/nicotine status: never used tobacco/nicotine Alcohol intake: never Substance/Drug Use: never Adopted: No Caregiver/support person: No Lives independently: No Housing: Assisted Marital status: Current occupational status: retired Current gender identity: Female Vitals/I&O/Wt Last Vital Signs Temp 98.0 F 05/18/23 11:56 Pulse 85 05/18/23 14:00 Resp 20 H 05/18/23 11:56 BP 153/73 05/18/23 11:56 Pulse Ox 100 05/18/23 11:56 O2 Del Method Nasal Cannula 05/18/23 11:56 O2 Flow Rate 3 05/18/23 10:05 05/17/23 05/18/23 05/18/23 22:59 06:59 14:59 Intake Total 1530 / 2300 50 / 2350 1530 / 1530 Output Total 200 / 200 Balance 1330 / 2100 50 / 2150 1530 / 1530 Weight last 48 hrs Weight 155 lb 9 oz Weight 155 lb 9 oz Physical Exam 2 Narrative: General : Patient is well developed , poor hearing, frail Head : Normal cephalic, a-traumatic. Nose : Mucous membranes are without erythema. Lungs : Equal chest rise bilaterally, no use of accessory muscles, trachea is midline. CV : Rate and rhythm are normal. Abdomen : Soft, ND, NT, no g/r/m On rectal examination there is inflamed external hemorrhoids, digital rectal examination at this moment is negative for residual blood, there is a stool in the glove but no evidence of active bleeding Data 05/18/23 05:24 05/18/23 05:24 A&P Assessment and plan (1) GI bleed: Plan After complete history, physical examination and review of all available clinical data the following is my assessment. Lower GI bleed with likely source being her hemorrhoids, lower in the differential would be diverticular bleeding. Either way, at this moment I think the most appropriate step is to continue observation, patient should stay off systemic anticoagulation until hemoglobin is stable and if there is evidence of recurrent bleeding or downtrend of the hemoglobin the next step will be to do a lower endoscopy. At this moment the benefit of doing the endoscopy will be lower than the risks of proceeding therefore we will continue to, manage current on expectant basis. For her hemorrhoids she can continue to do sitz bath's, she can receive stool softeners and fiber to allow for soft bowel movements. General surgery will continue to follow. Coding Level of Care Code Acute Code for Chg Fwd Diagnoses GI bleed K92.2
[2023-05-18] MEDS: magnesium lactate 84 mg Tablet PO (14:43)
[2023-05-18] MEDS: gabapentin 300 mg Capsule 600 MG PO (16:38)
[2023-05-18] MEDS: sodium chloride 0.9% 1,000 ML 50 ML IV (21:10)
[2023-05-18 21:38] LABS: Hematocrit 30.9 % (36-47)
[2023-05-19] VITALS (8 sets, daily range): BP systolic 115–137; BP diastolic 61–74; PULSE 87–90; RESP 16–20; TEMP 36.4–36.8; O2SAT 96–99
[2023-05-19] MEDS: pantoprazole 40 mg SDV IVP (03:27)
[2023-05-19] MEDS: sertraline 50 mg Tablet 25 MG PO (06:02)
[2023-05-19 06:16] LABS: Basophils % 0.8 %; Eosinophils # 0.7 10^3/uL (0.0-0.8); Eosinophils % 18.4 %; Hematocrit 31.6 % (36-47); Lymphocytes # 0.7 10^3/uL (0.8-4.8); Lymphocytes % 17.7 %; Mean Corpuscular HGB Conc 30.4 g/dL (30-55); Mean Corpuscular Hemoglobin 31.6 pg (27-33); Mean Corpuscular Volume 103.9 fl (85-98); Mean Platelet Volume 10.5 fL (7.4-10.4); Monocytes # 0.5 10^3/uL (0.2-0.9); Monocytes % 13.4 %; Neutrophils # 1.97 10^3/uL (1.8-7.7); Neutrophils % 49.7 %; Nucleated Red Blood Cells % 0 %; Platelet Count 83 10^3/cmm (157-399); Red Blood Count 3.04 10^6/uL (3.85-5.65); Red Cell Distribution Width 16.1 % (12.1-15.1); White Blood Count 3.96 10^3/uL (3.29-11.43)
[2023-05-19 07:17] LABS: Anion Gap 10.6 (5-19); Blood Urea Nitrogen 8 mg/dL (8-23); Calcium 7.9 mg/dL (8.5-10.5); Carbon Dioxide 21 mmol/L (22-29); Chloride 113 mmol/L (98-107); Glucose 108 mg/dL (65-115); Osmolality Calculated 291 mOsm/kg (285-295); Potassium 3.6 mmol/L (3.5-5.1); Sodium 141 mmol/L (136-145)
[2023-05-19] MEDS: magnesium lactate 84 mg Tablet PO (09:55)
[2023-05-19] MEDS: gabapentin 300 mg Capsule PO ×2 (09:55→11:44)
[2023-05-19] MEDS: linezolid 600 mg Tablet PO (09:55)
--- NOTE | 2023-05-19 09:57 | P.DS_ITS ---
Discharge Providers Date of Admission: 05/14/23 11:20 Date of Discharge: May 19, 2023 Attending Provider at Admission: Sudheer Wood MD Attending Provider at Discharge: Kevin Aguero MD Primary Care Provider: Sudheer Wood MD Diagnoses at Discharge Discharge Diagnosis (1) GI bleed: Status: Acute Reason for Visit 2 Reason for Visit: gi bleed Hospital Course Hospital Course Patient is a 83-year-old female with past medical history of CAD, cirrhosis, dysphagia, CVA, PCI, NSTEMI, hypothyroidism, diabetes presents the emergency room with bloody stools. Patient will be admitted to the hospital for further medical management of GI bleed. Patient states that she has noticed in the past 2 to 3 days that she has had blood in her stools. Patient resides at a longterm facility and notified staff early this are morning about bloody stools. Patient was transported to [facility] ER via EMS. She does report abdominal pain to bilateral lower quadrants. She denies any vomiting blood or urinating blood. She denies any chest discomfort, nausea, vomiting, fever, chills or dyspnea. She denies any alleviating or aggravating factors at this time. Reports abdominal pain 5/10 on pain scale. While in the emergency room, laboratory studies and radiology imaging were performed. 1 unit RBCs ordered and started. Patient was admitted to [facility] for GI bleed, CT scan abdomen pelvis showed sigmoid diverticula, with liver cirrhosis history, her antiplatelet therapy was held, she was monitored during her hospitalization, she required 2 units PRBC, Protonix, Carafate, initially I think her GI bleed was likely likely secondary to a slow diverticular bleed, which has resolved, however she continued to have stools with blood around it, blood with bearing down, I actually observed the stools, there is no blood inside the stool but more around the stool, at times scant blood with wiping, likely secondary to hemorrhoidal bleeding, she was monitored for another 48 hours, general surgery was consulted, agree that likely the persistent bleeding is likely from hemorrhoids. Overall hemoglobin has been stable, bloody stools have resolved, she will be discharged on a GI soft diet, stool softeners, sitz bath's, with a follow-up with general surgery as outpatient for consideration of hemorrhoidectomy. I advised mcc to monitor for bloody or black stools, monitor hemoglobin in 48 hours. In terms of her antiplatelet therapy on aspirin and Plavix for CAD, we discussed risks and benefits of holding anticoagulation, risk including but not limited to cardiovascular events, benefits decrease risk of GI bleed, hemorrhoidal bleed, after discussing the risk and benefits of all options, shared decision making she voiced understanding, all questions answered for now we will hold anticoagulation and antiplatelet therapy for at least a month,. Decision when to resume antiplatelet therapy will be based on shared decision making with primary care, general surgery and patient's overall hemoglobin trend, and clinical course in the next few weeks. Physical Exam Const: COMMON NORMALS: no acute distress ORIENTATION/CONSCIOUSNESS: Yes awake, Yes oriented to person and Yes oriented to place; not oriented to time Resp: COMMON NORMALS: normal respiratory effort, No retractions, No use of accessory muscles and clear to auscultation bilaterally AUSCULTATION: clear to auscultation bilaterally Cardio: COMMON NORMALS: regular rate, regular rhythm, S1 normal heart sound present and S2 normal heart sound present RATE: regular rate RHYTHM: regular rhythm HEART SOUNDS: S1 normal heart sound present and S2 normal heart sound present GI: COMMON NORMALS: Normal to inspection, nondistended, normoactive bowel sounds present and non-tender Extremity: COMMON NORMALS: no pedal edema Neuro: SENSORIUM/ORIENTATION: Yes oriented to person, Yes oriented to place and No oriented to time Discharge Data Studies Completed and Pending Completed Studies During Hospitalization Category Date Time Status CT abdomen pelvis w con* [id number] Stat Cat Scan 05/14/23 08:22 Completed XR chest 1V portable [id number] Routine Exams 05/18/23 09:48 Completed XR chest 1V portable [id number] Stat Exams 05/14/23 07:48 Completed Pending at discharge Category Date Time Status Basic Metabolic Panel AM LABS Lab 05/20/23 04:00 Ordered Basic Metabolic Panel AM LABS Lab 05/21/23 04:00 Ordered Complete Blood Count w/Auto AM LABS Lab 05/20/23 04:00 Ordered Complete Blood Count w/Auto AM LABS Lab 05/21/23 04:00 Ordered Radiology Impressions Chest X-Ray 05/18/23 09:48 IMPRESSION: 1. Bilateral lower lobe infiltrate/effusion. 2. Chronic changes left upper lobe. Laboratory Results WBC 3.96 10^3/uL (3.29-11.43) 05/19/23 06:00 RBC 3.04 10^6/uL (3.85-5.65) L 05/19/23 06:00 Hgb 9.60 g/dL (11.27-16.99) L 05/19/23 06:00 Hct 31.6 % (36-47) L 05/19/23 06:00 MCV 103.9 fl (85-98) H 05/19/23 06:00 MCH 31.6 pg (27-33) 05/19/23 06:00 MCHC 30.4 g/dL (30-55) 05/19/23 06:00 RDW 16.1 % (12.1-15.1) H 05/19/23 06:00 Plt Count 83 10^3/cmm (157-399) L 05/19/23 06:00 MPV 10.5 fL (7.4-10.4) H 05/19/23 06:00 Neut % (Auto) 49.7 % 05/19/23 06:00 Lymph % (Auto) 17.7 % 05/19/23 06:00 [place] % (Auto) 13.4 % 05/19/23 06:00 Eos % (Auto) 18.4 % 05/19/23 06:00 Baso % (Auto) 0.8 % 05/19/23 06:00 Neut # (Auto) 1.97 10^3/uL (1.8-7.7) 05/19/23 06:00 Lymph # (Auto) 0.7 10^3/uL (0.8-4.8) L 05/19/23 06:00 [place] # (Auto) 0.5 10^3/uL (0.2-0.9) 05/19/23 06:00 Eos # (Auto) 0.7 10^3/uL (0.0-0.8) 05/19/23 06:00 Baso # (Auto) 0.0 10^3/uL (0.0-0.1) 05/19/23 06:00 Nucleated RBC % (auto) 0 % 05/19/23 06:00 Nucleated RBCs # 0.0 /100WBC 05/19/23 06:00 PT 16.50 SECONDS (12.1-14.9) H 05/15/23 13:05 INR 1.29 (0.8-1.2) H 05/15/23 13:05 APTT 30.7 SECONDS (23.9-36.7) 05/14/23 07:40 Sodium 141 mmol/L (136-145) 05/19/23 06:00 Potassium 3.6 mmol/L (3.5-5.1) 05/19/23 06:00 Chloride 113 mmol/L (98-107) H 05/19/23 06:00 Carbon Dioxide 21 mmol/L (22-29) L 05/19/23 06:00 Anion Gap 10.6 (5-19) 05/19/23 06:00 BUN 8 mg/dL (8-23) 05/19/23 06:00 Creatinine 0.4 mg/dL (0.5-0.9) L 05/19/23 06:00 GFR Calculation Not Reportable 05/19/23 06:00 Glucose 108 mg/dL (65-115) 05/19/23 06:00 Calculated Osmolality 291 mOsm/kg (285-295) 05/19/23 06:00 Calcium 7.9 mg/dL (8.5-10.5) L 05/19/23 06:00 Phosphorus 1.6 mg/dL (2.5-4.5) L 05/18/23 05:24 Magnesium 1.6 mg/dL (1.7-2.3) L 05/18/23 05:24 Iron 58 ug/dL (37-145) 05/15/23 05:40 TIBC 151 mcg/dl 05/15/23 05:40 % Saturation 38.4 % (20-50) 05/15/23 05:40 Unsat Iron Binding 93 ug/dL (112-347) L 05/15/23 05:40 Ferritin 126 ng/mL (15-150) 05/15/23 05:40 Total Bilirubin 1.1 mg/dL (0.15-1.2) 05/18/23 05:24 AST 22 U/L (0-32) 05/18/23 05:24 ALT 10 U/L (0-33) 05/18/23 05:24 Alkaline Phosphatase 96 U/L (35-105) 05/18/23 05:24 NT-Pro-B Natriuret Pep 406 pg/mL (0-450) 05/18/23 05:24 Total Protein 5.9 g/dL (6.6-8.7) L 05/18/23 05:24 Albumin 2.6 g/dL (3.5-5.2) L 05/18/23 05:24 Globulin 3.3 g/dL (1.3-4.6) 05/18/23 05:24 Urine Color [place] (Yellow) 05/14/23 08:40 Urine Appearance Cloudy (CLEAR) A 05/14/23 08:40 Urine pH 7 (5-7) 05/14/23 08:40 Ur Specific [place] 1.005 (1.005-1.030) 05/14/23 08:40 Urine Protein Neg (Negative) 05/14/23 08:40 Urine Glucose (UA) Norm (Normal) 05/14/23 08:40 Urine Ketones Negative (Negative) 05/14/23 08:40 Urine Blood 3+ (Negative) H 05/14/23 08:40 Urine Nitrate Negative (Negative) 05/14/23 08:40 Urine Bilirubin Neg (Negative) 05/14/23 08:40 Urine Urobilinogen Neg mg/dL (Negative) 05/14/23 08:40 Ur Leukocyte Esterase 2+ (Negative) H 05/14/23 08:40 Urine RBC 0-4 /hpf (0-2) H 05/14/23 08:40 Urine WBC 15-25 /hpf (0-5) H 05/14/23 08:40 Ur Squamous Epith Cells 0-4 /hpf (0-5) H 05/14/23 08:40 Amorphous Sediment Not Reportable 05/14/23 08:40 Urine Bacteria 3+ /hpf (NONE) H 05/14/23 08:40 Blood Type O Positive 05/18/23 05:24 Rho(D) Type Rh positive 05/18/23 05:24 Antibody Screen Negative 05/18/23 05:24 Crossmatch See Detail 05/18/23 05:24 Vitals Last Vital Signs Temp 98.2 F 05/19/23 07:18 Pulse 89 05/19/23 08:00 Resp 18 05/19/23 08:00 BP 123/72 05/19/23 07:18 Pulse Ox 96 05/19/23 08:00 O2 Del Method Nasal Cannula 05/19/23 08:00 O2 Flow Rate 2 05/19/23 08:00 Discharge Plan Discharge Patient Disposition: Home Condition: Stable Prescriptions: New magnesium L-lactate [Magtab] 84 mg Tablet Extended Release 84 mg PO DAILY 7 Days Qty: 7 0RF calcium polycarbophil [Fiber-Lax] 625 mg tablet 625 mg PO DAILY 30 Days Qty: 30 0RF linezolid 600 mg Tablet 600 mg PO Q12H 3 Days Qty: 6 0RF Continued magnesium hydroxide [Milk of Magnesia] 400 mg/5 mL suspension 30 ml PO Q24H PRN (Reason: Constipation) fluticasone propionate 50 mcg/actuation spray,suspension 1 spray intranasal BID@09,21 sertraline 25 mg tablet 25 mg PO DAILY@07 polyethylene glycol 3350 [Miralax] 17 gram/dose powder 17 gm PO Q2D Rx Instructions: hold for loose stools solifenacin [Vesicare] 5 mg tablet 5 mg PO DAILY Qty: 30 12RF bisacodyl 10 mg Suppository 10 mg IA DAILY PRN (Reason: Constipation) potassium chloride [Klor-Con M20] 20 mEq tablet,ER particles/crystals 20 meq PO DAILY Qty: 30 0RF furosemide 40 mg tablet 40 mg PO DAILY acetaminophen 325 mg Tablet 650 mg PO Q4H PRN (Reason: Pain) gabapentin 300 mg capsule 300 mg PO BID loperamide [Imodium A-D] 2 mg Tablet 2 mg PO Q6H PRN (Reason: Diarrhea) famotidine 20 mg tablet 20 mg PO BID morphine 20 mg/5 mL (4 mg/mL) Solution See Rx Instructions .ROUTE .COMPLEX PRN (Reason: Pain) Rx Instructions: 0.25 ml orally as needed for pain every 2 hours nitroglycerin [Nitrostat] 0.4 mg Tablet, Sublingual 0.4 mg SUBLINGUAL Q5M PRN (Reason: Chest Pain) Rx Instructions: do not exceed 3 doses per episode cocoa butter-shark liver oil Suppository 1 supp IA DAILY PRN (Reason: Hemorrhoids) calcium carbonate 500 mg calcium (1,250 mg) Tablet,Chewable 500 mg PO BID pantoprazole 40 mg Tablet,Delayed Release (Dr/Ec) 40 mg PO DAILY Qty: 30 0RF Eucerin Cream 1 applic TOPICAL DAILY PRN (Reason: Dry Skin) nystatin 100,000 unit/gram Powder 1 applic TOPICAL BID MDD redness Refresh 1 % Drops, Liquid Gel 1 drp OPHTHALMIC (EYE) TID PRN (Reason: Dry Eyes) multivitamin Tablet 1 tab PO DAILY@07 gabapentin 600 mg Tablet 600 mg PO DAILY ondansetron HCl 4 mg Tablet 4 mg PO Q4H PRN (Reason: Nausea And Vomiting) sennosides-docusate sodium [Stool Softener-Laxative] 8.6-50 mg Tablet 2 tab PO BID@08,20 Kqdxj-Cp-Emi Enema 19-7 gram/118 mL Enema 118 ml IA DAILY PRN (Reason: Constipation) Held aspirin 81 mg Tablet,Delayed Release (Dr/Ec) 81 mg PO DAILY 30 Days Qty: 30 3RF Hold Instructions: Resume on 06/21/23. hold until you see general surgery clopidogrel [Plavix] 75 mg tablet 75 mg PO DAILY 30 Days Qty: 30 3RF Hold Instructions: Resume on 06/30/23. hold until you see general surgery Discontinued diclofenac sodium 1 % Gel See Rx Instructions .ROUTE .COMPLEX Rx Instructions: Apply 4 g topically to bilateral knees and bilateral hands 3 times daily for localized swelling, mass and lump, and bilateral lower limb. Discharge Orders: Discharge Order (Routine); Ordered 05/19/23 Ordered By: Kevin Aguero Referrals: Pawel Chappell MD [Physician] - 2 weeks Sudheer Wood MD [Primary Care Provider] - Discharge Diet: Cardiac Discharge Activity: Resume usual activity Patient Instructions: Opioid Safety Activity Restrictions/Additional Instructions: - Please continue bowel regimen, will try to obtain soft stools, avoid straining, for hemorrhoids, ? If she continues to have hemorrhoidal bleeding, please follow-up with general surgery as outpatient for consideration of hemorrhoidectomy ? Please follow hemoglobin as outpatient repeat hemoglobin in 48 hours Discharge Attestations Time Spent in Discharge Care*: greater than 30 min Status at Discharge: Cognitive status at discharge: cognitively intact , Behavioral status at discharge: cooperative , Quality Metrics Clinical Quality Measures [ No reported AMI, CVA or VTE this stay] Coding Level of Care Code 07354 Total time (in minutes) for Discharge: 45 Diagnoses GI bleed K92.2
[2023-05-19 10:59] LABS: SARS Covid-2 Antigen negative (Negative)
--- NOTE | 2023-05-19 11:17 | PC.CHAP ---
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 financial analyst accountant visit [] Patient/Family/Request visit [] Outpatient visit [] Follow-up visit [] Physician referral [] Code/Alert [x] Routine visit [] Staff referral [] Actively dying [] Patient sleeping [] Family support [] [] Out of room [] Palliative care [] [] Receiving care in room [] Pre-surgical visit [] Trauma [] Long length of stay [] ICU visit [] Other: Relational/Emotional Strength [x] Patient feels connected with others/family/visitors/staff [] Distress [] Loneliness/isolation [] Abandonment Spirituality of Patient [] Person of Sujatha [] Attends Yazdanism of their Sujatha [] Believes in Prayer [] Reads Bible or Lutheran materials [] There are Spiritual issues to be addressed Open Cut Examiner Interventions [x] Prayer [x] Active listening [] Non-anxious presence [] Spiritual/emotional support [] Crisis/trauma care [] Spiritual counseling [] Bereavement support [] Provided bereavement packet [] Provided Bible/devotional materials [] Provided toy/stuffed animal, coloring book to patient or family member [] Provided Communion [] Anointing/[place] [] Salvation [] Completed spiritual assessment [] Other: Impact on Illness or Injury [] Angry [] Fearful [] Anxious [] Often cries [] Exhaustion [] Unable to work [] Unable to attend voodoo [] Unable to walk/stand [] Unable to read [] Unable to drive [] Unable to eat/drink [] Unable to sleep [] Unable to be with family [] Patient intubated [] Other: Summary Time spent with patient 15 min
[2023-05-19] MEDS: sucralfate 1 gm Tablet PO (11:44)
--- NOTE | 2023-05-19 13:52 | PC.NURSE ---
This nurse called and gave report to JAVIER Miller at [facility] [place] at 1350.
[2023-05-19] MEDS: gabapentin 300 mg Capsule 600 MG PO (17:18)
== END 2023-05-19 19:43 | disposition skilled nursing facility (03) | DRG 393 ==
LOC: ER 08:12 → ER IP 14:05 → MEDSURG 14:36
PROVIDERS: Admitting Provider Internal Medicine; Emergency Provider Family Medicine; PCP Internal Medicine; Visit Provider Family Medicine
DX: K64.4 Residual hemorrhoidal skin tags (principal); K57.31 Diverticulosis of large intestine without perforation or abscess with bleeding; J90 Pleural effusion, not elsewhere classified; N39.0 Urinary tract infection, site not specified; Z79.82 Long term (current) use of aspirin; Z79.02 Long term (current) use of antithrombotics/antiplatelets; E11.42 Type 2 diabetes mellitus with diabetic polyneuropathy; M10.9 Gout, unspecified; E03.9 Hypothyroidism, unspecified; I25.2 Old myocardial infarction; Z86.73 Personal history of transient ischemic attack (TIA), and cerebral infarction without residual deficits; K21.9 Gastro-esophageal reflux disease without esophagitis; E11.51 Type 2 diabetes mellitus with diabetic peripheral angiopathy without gangrene; I10 Essential (primary) hypertension; G89.29 Other chronic pain; M54.9 Dorsalgia, unspecified; M19.90 Unspecified osteoarthritis, unspecified site; I25.10 Atherosclerotic heart disease of native coronary artery without angina pectoris; K74.60 Unspecified cirrhosis of liver; R13.10 Dysphagia, unspecified; I27.20 Pulmonary hypertension, unspecified; D69.6 Thrombocytopenia, unspecified; D64.9 Anemia, unspecified; I86.8 Varicose veins of other specified sites
CPT/HCPCS: 36415; 36430; 71045; 74177; 80048; 80053; 81001; 82728; 83540; 83550; 83735; 83880; 84100; 85014; 85018; 85025; 85610; 85730; 86850; 86900; 86920; 87077; 87086; 87186; 87426; 93005; 94664; 96374; 99203; 99285; C9113; J2185; J7030; P9016; Q3014; Q9967

== ENCOUNTER 2023-05-23 07:21 | Inpatient (IN) | payer MEDICARE, MEDICAID, SELFPAY ==
[2023-05-23] VITALS (11 sets, daily range): BP systolic 121–144; BP diastolic 63–78; PULSE 69–95; RESP 15–20; TEMP 36.4–36.8; O2SAT 96–100; BMI 27.3; BMI 31.9
--- NOTE | 2023-05-23 07:30 | W.ED.GIBLEED ---
HPI - GI Bleed General: Chief complaint: GI Bleed Stated complaint: ABD PAIN Time Seen by Provider: 05/23/23 07:29 Source: patient Mode of arrival: EMS History of Present Illness: 83-year-old female who presents to the emergency room with complaints of bright red blood per rectum. She was here just a few days ago for similar complaints she did require 2 units of blood she had a large bloody bowel movement while in the emergency room at that time. At the time of discharge it was felt to be likely a slow diverticular bleed and complicated as well by hemorrhoidal bleeding General surgery had been consulted. Patient was on aspirin and Plavix these were held at discharge. She is once again having bright red blood per rectum. She denies abdominal pain. MD complaint: gross hematochezia Onset (ago): day(s) Relieving factors: none Exacerbating factors: bowel movement Context: history of GI bleed and hemorrhoids Associated symptoms: Denies abdominal pain, chills, easy bruising, epistaxis, fever(s), headache(s), malaise, nausea, other bleeding, poor appetite, rash, syncope, vomiting or weakness Review of Systems Const: Denies: fever(s), chills or malaise ENMT: Denies: epistaxis Card: Denies: chest pain or syncope Resp: Denies: dyspnea GI: Denies: abdominal pain, nausea or vomiting : Denies: dysuria, urinary frequency or urinary urgency Musc: Denies: neck pain or back pain Skin/Breast: Denies: rash Neuro: Denies: headache(s) Edu/Lymph: Denies: easy bruising [facility] ED PFSH: Medical History (Updated 05/24/23 @ 07:43 by Jamie Gamino DO) Cirrhosis Bacteremia Thrombocytopenia Diabetes Gout Hypothyroidism Acute UTI Non-ST elevation [place] (NSTEMI) Confusion Urolithiasis Retained ureteral stent Cystitis cystica History of CVA (cerebrovascular accident) GERD (gastroesophageal reflux disease) Peripheral artery disease Hypertension Chronic back pain Osteoarthritis Polyneuropathy Post herpetic neuralgia CAD in [place] artery Chronic cystitis Surgical History H/O bladder repair surgery S/P tonsillectomy Hip fracture History of cataract surgery History of cholecystectomy H/O: hysterectomy Family History Other Renal cancer Social History Smoking and tobacco/nicotine status: never used tobacco/nicotine Alcohol intake: never Substance/Drug Use: never Adopted: No Caregiver/support person: No Lives independently: No Housing: Snf Marital status: Current occupational status: retired Current gender identity: Female Physical Exam Const: COMMON NORMALS: no acute distress GENERAL APPEARANCE: cooperative and comfortable ORIENTATION/CONSCIOUSNESS: Yes awake, Yes oriented to person, Yes oriented to place and Yes oriented to time HENMT: COMMON NORMALS: normocephalic, atraumatic and hearing grossly normal bilaterally HEAD & SCALP: normocephalic and atraumatic Resp: COMMON NORMALS: normal respiratory effort, No retractions, No use of accessory muscles and clear to auscultation bilaterally AUSCULTATION: clear to auscultation bilaterally Cardio: COMMON NORMALS: regular rate, regular rhythm and No murmurs present (Cardio) RATE: regular rate RHYTHM: regular rhythm GI: COMMON NORMALS: Soft to palpation and No hepatosplenomegaly present AUSCULTATION: Yes normoactive bowel sounds PALPATION: Yes Soft to palpation, No Tenderness to palpation present (GI), No Guarding due to palpation present (GI) and Yes No hepatosplenomegaly present Extremity: COMMON NORMALS: normal to inspection, capillary refill normal, no clubbing, cyanosis or edema, no calf tenderness and no pedal edema Neuro: SENSORIUM/ORIENTATION: Yes oriented to person, Yes oriented to place and Yes oriented to time Skin: COMMON NORMALS: no rashes or lesions noted GENERAL SKIN EXAM: no rashes or lesions noted Course Vital Signs: Vital signs: Vital Signs Temperature 97.6 F 05/24/23 03:19 Pulse Rate 80 05/24/23 06:00 Respiratory Rate 16 05/24/23 03:19 Blood Pressure 109/66 05/24/23 03:19 Pulse Oximetry 95 05/24/23 03:19 Oxygen Delivery Me thod Nasal Cannula 05/24/23 03:19 Oxygen Flow Rate 2 05/24/23 02:56 MDM - GI Bleed Medical Decision Making Hemoglobin is decreased by 1 g. Patient also has a mild cystitis we will admit for further evaluation she also has thrombocytopenia which has been chronic related to her cirrhosis. Discussed with hospitalist orders written Differential Diagnosis Likely hemorrhoids, Lower gastrointestinal hemorrhage and hematochezia Medical Records I reviewed the patient's medical records. Lab Data I reviewed the patient's lab results. 05/24/23 02:04 05/24/23 02:04 Radiology Impressions Abdomen/Pelvis CT 05/23/23 08:55 IMPRESSION: 1. Iggld-um-pkyaaiym bilateral pleural effusions ggsu-jwcscfp-vqty-right. 2. Marked dilatation of the common bile duct measuring up to 1.3 centimeters. 3. Cirrhosis with splenorenal shunting, varices with associated splenomegaly. 4. Low volume ascites. 5. Anasarca. 6. Partially visualized left ischioanal fossa hyperdensity with central low attenuation, which may represent a developing abscess or phlegmon changes. Clinical correlation is recommended. Chest CT 05/23/23 12:48 IMPRESSION: 1. Mild bilateral pleural effusions lqws-akbniay-xdgx-right. 2. Bibasilar lower lobe consolidations nlnx-puwubui-hspz-right lower with air bronchograms. There is also distal opacification of the lower bronchi. Findings suspicious for aspiration pneumonia versus compressive atelectasis. Laboratory Results WBC 2.42 10^3/uL (3.29-11.43) L 05/23/23 08:38 RBC 2.75 10^6/uL (3.85-5.65) L 05/23/23 08:38 Hgb 8.70 g/dL (11.27-16.99) L 05/23/23 08:38 Hct 28.3 % (36-47) L 05/23/23 08:38 MCV 102.9 fl (85-98) H 05/23/23 08:38 MCH 31.6 pg (27-33) 05/23/23 08:38 MCHC 30.7 g/dL (30-55) 05/23/23 08:38 RDW 16.9 % (12.1-15.1) H 05/23/23 08:38 Plt Count 54 10^3/cmm (157-399) L 05/23/23 08:38 MPV 11.3 fL (7.4-10.4) H 05/23/23 08:38 Neut % (Auto) 70.6 % 05/23/23 08:38 Lymph % (Auto) 14.5 % 05/23/23 08:38 [place] % (Auto) 8.3 % 05/23/23 08:38 Eos % (Auto) 5.8 % 05/23/23 08:38 Baso % (Auto) 0.4 % 05/23/23 08:38 Neut # (Auto) 1.71 10^3/uL (1.8-7.7) L 05/23/23 08:38 Lymph # (Auto) 0.4 10^3/uL (0.8-4.8) L 05/23/23 08:38 [place] # (Auto) 0.2 10^3/uL (0.2-0.9) 05/23/23 08:38 Eos # (Auto) 0.1 10^3/uL (0.0-0.8) 05/23/23 08:38 Baso # (Auto) 0.0 10^3/uL (0.0-0.1) 05/23/23 08:38 Nucleated RBC % (auto) 0 % 05/23/23 08:38 Nucleated RBCs # 0.0 /100WBC 05/23/23 08:38 PT 18.80 SECONDS (12.1-14.9) H 05/23/23 08:38 INR 1.52 (0.8-1.2) H 05/23/23 08:38 APTT 33.5 SECONDS (23.9-36.7) 05/23/23 08:38 Sodium 135 mmol/L (136-145) L 05/23/23 08:38 Potassium 3.3 mmol/L (3.5-5.1) L 05/23/23 08:38 Chloride 103 mmol/L (98-107) 05/23/23 08:38 Carbon Dioxide 24 mmol/L (22-29) 05/23/23 08:38 Anion Gap 11.3 (5-19) 05/23/23 08:38 BUN 8 mg/dL (8-23) 05/23/23 08:38 Creatinine 0.7 mg/dL (0.5-0.9) 05/23/23 08:38 GFR Calculation Not Reportable 05/23/23 08:38 Glucose 95 mg/dL (65-115) 05/23/23 08:38 Calculated Osmolality 278 mOsm/kg (285-295) L 05/23/23 08:38 Calcium 7.8 mg/dL (8.5-10.5) L 05/23/23 08:38 Total Bilirubin 1.1 mg/dL (0.15-1.2) 05/23/23 08:38 AST 32 U/L (0-32) 05/23/23 08:38 ALT 12 U/L (0-33) 05/23/23 08:38 Alkaline Phosphatase 99 U/L (35-105) 05/23/23 08:38 Total Protein 6.1 g/dL (6.6-8.7) L 05/23/23 08:38 Albumin 2.5 g/dL (3.5-5.2) L 05/23/23 08:38 Globulin 3.6 g/dL (1.3-4.6) 05/23/23 08:38 Vitamin B12 1138 pg/mL (232-1245) 05/23/23 08:38 TSH 2.02 uIU/mL (0.27-4.20) 05/23/23 08:38 Urine Color [place] (Yellow) A 05/23/23 09:00 Urine Appearance Cloudy (CLEAR) A 05/23/23 09:00 Urine pH TNP 05/23/23 09:00 Ur Specific [place] TNP 05/23/23 09:00 Urine Protein TNP 05/23/23 09:00 Urine Glucose (UA) TNP 05/23/23 09:00 Urine Ketones TNP 05/23/23 09:00 Urine Blood TNP 05/23/23 09:00 Urine Nitrate TNP 05/23/23 09:00 Urine Bilirubin TNP 05/23/23 09:00 Urine Urobilinogen TNP 05/23/23 09:00 Ur Leukocyte Esterase TNP 05/23/23 09:00 Urine RBC 15-25 /hpf (0-2) H 05/23/23 09:00 Urine WBC 25-40 /hpf (0-5) H 05/23/23 09:00 Ur Squamous Epith Cells 5-10 /hpf (0-5) H 05/23/23 09:00 Ur Transition Epith Cell 0-4 /hpf 05/23/23 09:00 Calcium Oxalate Crystal 5-10 /hpf H 05/23/23 09:00 Amorphous Sediment Not Reportable 05/23/23 09:00 Urine Bacteria 1+ /hpf (NONE) H 05/23/23 09:00 Urine Yeast 1+ /hpf H 05/23/23 09:00 All radiology interpretation(s) finalized by discharge Discharge Plan Discharge Patient Disposition: Admitted As Inpatient Admit Provider: Ruddy Hernandez Clinical Impression: Bright red blood per rectum, Thrombocytopenia, Cirrhosis, Anemia, Cystitis Condition: Stable Coding Level of Care Code ED Nuclear Weapons Mechanical Specialist for Paramjit Low
[2023-05-23 08:53] LABS: Basophils % 0.4 %; Eosinophils # 0.1 10^3/uL (0.0-0.8); Eosinophils % 5.8 %; Hematocrit 28.3 % (36-47); Lymphocytes # 0.4 10^3/uL (0.8-4.8); Lymphocytes % 14.5 %; Mean Corpuscular HGB Conc 30.7 g/dL (30-55); Mean Corpuscular Hemoglobin 31.6 pg (27-33); Mean Corpuscular Volume 102.9 fl (85-98); Mean Platelet Volume 11.3 fL (7.4-10.4); Monocytes # 0.2 10^3/uL (0.2-0.9); Monocytes % 8.3 %; Neutrophils # 1.71 10^3/uL (1.8-7.7); Neutrophils % 70.6 %; Nucleated Red Blood Cells % 0 %; Platelet Count 54 10^3/cmm (157-399); Red Blood Count 2.75 10^6/uL (3.85-5.65); Red Cell Distribution Width 16.9 % (12.1-15.1); White Blood Count 2.42 10^3/uL (3.29-11.43)
--- NOTE | 2023-05-23 08:55 | CTR_ITS ---
PROCEDURE INFORMATION: Exam: CT Abdomen And Pelvis With Contrast Exam date and time: 05/23/2023 10:06 AM Age: 83 years old Clinical indication: Abdominal pain; Generalized; Prior surgery; Surgery date: 6+ months; Surgery type: Bladder, hyster, gb, hip; Additional info: Abd pain TECHNIQUE: Imaging protocol: Computed tomography of the abdomen and pelvis with contrast. Radiation optimization: All CT scans at this facility use at least one of these dose optimization techniques: automated exposure control; mA and/or kV adjustment per patient size (includes targeted exams where dose is matched to clinical indication); or iterative reconstruction. Contrast material: OMNI 350; Contrast volume: 100 ml; Contrast route: INTRAVENOUS (IV); REPORTING DATA: Count of CT and Cardiac NM exams in prior 12 months: This patient has received 3 known CTs and 0 known cardiac nuclear medicine studies in the 12 months prior to the current study. COMPARISON: CT abdomen pelvis w con* [id number] 05/14/2023 9:13 AM RADIATION DOSE METRICS: Total DLP (mGy-cm): 877.08 FINDINGS: Lungs: Bilateral pleural effusions with adjacent compressive atelectasis with the left lung base greater than the right. Liver: The liver has a nodular contour and there is relative hypertrophy of the caudate lobe, consistent with cirrhosis. Gallbladder and bile ducts: There has been a cholecystectomy. Marked dilatation of the common bile duct measuring up to 1.3 centimeters, no radiodense retained stones are seen. Pancreas: There is diffuse, benign fatty infiltration of the pancreas. Spleen: Moderate splenomegaly with the liver measuring 16 centimeters. Adrenal glands: No adrenal nodule. Kidneys and ureters: No suspicious renal mass. No hydronephrosis or nephrolithiasis. Ureters are normal. Nonobstructing 6 millimeters stone is seen in the right lower pole. Stomach and bowel: Surgical staple line seen near the gastroesophageal junction, correlate with surgical history. No mechanical bowel obstruction. Scattered diverticula without any evidence of acute diverticulitis. Appendix: No evidence of appendicitis. Intraperitoneal space: Low volume ascites is seen. Vasculature: Aorta is normal size and shape with scattered atherosclerotic disease. No focal aneurysmal dilatation. Mild narrowing of the celiac and SMA ostia secondary to calcified plaques. Moderate splenorenal and paraesophageal varices are seen. Lymph nodes: No enlarged lymph nodes. Urinary bladder: No bladder abnormality allowing for degree of filling. Reproductive: Unremarkable as visualized. Bones/joints: Left hip prosthesis is partially seen and appears intact. Moderate chronic degenerative changes of the thoracal lumbar spine with vacuum phenomena and multilevel Schmorl's nodes. No acute fracture. Soft tissues: Diffuse subcutaneous soft tissue edema. Partially visualized left ischioanal fossa hyperdensity with low centers attenuation suspicious for a small phlegmon or abscess. CT/CT abdomen pelvis w con* [id number] IMPRESSION: 1. [id number] bilateral pleural effusions [id number]-[id number]-xabs-right. 2. Marked dilatation of the common bile duct measuring up to 1.3 centimeters. 3. Cirrhosis with splenorenal shunting, varices with associated splenomegaly. 4. Low volume ascites. 5. Anasarca. 6. Partially visualized left ischioanal fossa hyperdensity with central low attenuation, which may represent a developing abscess or phlegmon changes. Clinical correlation is recommended.
[2023-05-23 08:57] LABS: INR 1.52 (0.8-1.2); Partial Thromboplastin Time 33.5 SECONDS (23.9-36.7)
[2023-05-23 09:03] LABS: Alanine Aminotransferase 12 U/L (0-33); Albumin Level 2.5 g/dL (3.5-5.2); Alkaline Phosphatase 99 U/L (35-105); Anion Gap 11.3 (5-19); Aspartate Amino Transferase 32 U/L (0-32); Blood Urea Nitrogen 8 mg/dL (8-23); Calcium 7.8 mg/dL (8.5-10.5); Carbon Dioxide 24 mmol/L (22-29); Chloride 103 mmol/L (98-107); Globulin 3.6 g/dL (1.3-4.6); Glucose 95 mg/dL (65-115); Osmolality Calculated 278 mOsm/kg (285-295); Potassium 3.3 mmol/L (3.5-5.1); Sodium 135 mmol/L (136-145); Total Bilirubin 1.1 mg/dL (0.15-1.2); Total Protein 6.1 g/dL (6.6-8.7)
[2023-05-23 09:09] LABS: Add Urine Microscopic? YES; Urine Appearance Cloudy (CLEAR); Urine Color Orange (Yellow)
[2023-05-23 09:24] LABS: Add Urine Culture? Yes; Bacteria Urine 1+ /hpf; RBC Urine 15-25 /hpf (0-2); Transitional Epi Cells Urine 0-4 /hpf; WBC Urine 25-40 /hpf (0-5)
[2023-05-23] MEDS: dexamethasone 4 mg/mL INJ IVP ×2 (09:51→16:52)
[2023-05-23] MEDS: diphenhydrAMINE 50 mg/mL SDV 1mL 25 MG IVP (09:51)
[2023-05-23] MEDS: iohexol 350 mg/mL 500 mL Btl (per mL) IV (10:15)
--- NOTE | 2023-05-23 11:28 | PM.HP ---
Providers/Chief Complaint Admitting Physician: Ruddy Hernandez MD Primary Care Provider: Sudheer Wood MD Chief Complaint: ABD PAIN History of Present Illness History taken over the phone from the nursing staff of the shelter. Daksha Machuca is a 83 year old female with past medical history of CAD post PCI, cirrhosis, dysphagia, CVA, hypothyroidism, type 2 diabetes mellitus, shelter resident who was recently in hospital and discharged on May 19 for bright blood per rectum when she required 2 units of blood transfusion. On previous discharge both aspirin and Plavix were withheld. She was to follow-up as an outpatient with surgical team for colonoscopy versus anoscopy. She was sent back to the ER today from the shelter because of recurrent rectal bleed which again started overnight as per the nursing staff. As per nursing staff patient usually is AOx3 to four but since coming back from the hospital patient has had some sort of confusion. Examination patient is awake and alert, she is alert for being herself, being in the hospital. She states she is in the hospital because of cough and some difficulty in breathing along with lower abdominal pain. She states she has been having soft bowel movements with last bowel movement last night. Review of Systems General: Reports: 10 or more systems reviewed and unremarkable except in HPI and below Const: Denies: fever(s), chills, body aches, change in appetite, change in weight, malaise, night sweats, diaphoresis, change in sleep pattern, daytime sleepiness or snoring Eyes: Denies: change in vision, blurry vision, photophobia, eye discomfort or eye discharge ENMT: Denies: throat pain, enlarged tonsils, hoarseness, mouth pain, oral sores, dry mouth, tinnitus, nasal congestion or post nasal drip Card: Denies: chest pain, palpitations, irregular heart rhythm, edema, swelling of feet/ankles, lightheadedness, syncope, pre-syncope, dyspnea on exertion, orthopnea, leg pain with exertion or acrocyanosis Resp: Denies: dyspnea, productive cough, non-productive cough, wheezing, stridor, pain on inspiration, change in phlegm color, hemoptysis or chest congestion GI: Denies: abdominal pain, nausea, vomiting, hematemesis, coffee ground emesis, dysphagia, heartburn, diarrhea, constipation, bloating, GI cramping, change in bowel habits, pain on defecation, hematochezia or melena : Denies: flank pain, dysuria, urinary frequency, urinary urgency, urinary hesitancy, nocturia or hematuria Musc: Denies: neck pain, back pain, extremity pain, joint pain, joint swelling, joint redness, joint stiffness or limited range of motion Neuro: Denies: headache(s), numbness in extremities, weakness in extremities, sensory changes, lack of coordination, difficulty walking, frequent falls, dizziness, vertigo, confusion, Slurred speech present, difficulty communicating thoughts or seizure-like activity Psych: Denies: anxiety, depression, mood swings, panic attacks, hopelessness or irritability Endo: Denies: polyuria, polydipsia, tired all the time, cold intolerance, excessive sweating, flushing or heat intolerance Edu/Lymph: Denies: easy bruising or easy bleeding All/Imm: Denies: tongue swelling, facial swelling or acute wheezing Medications/Allergies Home Medications Medication Instructions Recorded Confirmed Last Taken Type bisacodyl 10 mg rectal suppository 10 mg CA DAILY PRN Constipation 07/14/19 05/23/23 Unknown History polyethylene glycol 3350 17 17 gm PO Q2D 08/30/19 05/23/23 05/22/23 History gram/dose oral powder (Miralax) fluticasone propionate 50 1 spray intranasal BID@01/09/21 05/23/23 05/22/23 History mcg/actuation nasal spray,suspension magnesium hydroxide 400 mg/5 mL 30 ml PO Q24H PRN Constipation 01/09/21 05/23/23 05/22/23 History oral suspension (Milk of Magnesia) sertraline 25 mg tablet 25 mg PO DAILY@08/22/21 05/23/23 05/22/23 History gabapentin 600 mg tablet 600 mg PO DAILY 09/24/21 05/23/23 05/22/23 History multivitamin 1 tab PO DAILY@09/24/21 05/23/23 05/22/23 History ondansetron HCl 4 mg tablet 4 mg PO Q4H PRN Nausea And Vomiting 09/24/21 05/23/23 Unknown History sennosides 8.6 mg-docusate sodium 2 tab PO BID@09/24/21 05/23/23 05/22/23 History 50 mg tablet (Stool Softener-Laxative) sodium phosphates 19 gram-7 118 ml CA DAILY PRN Constipation 09/24/21 05/23/23 Unknown History gram/118 mL enema (Lkmup-Nd-Kmi Enema) aspirin 81 mg tablet,delayed 81 mg PO DAILY 30 days #30 tabs 10/04/21 05/23/23 05/19/23 Rx release clopidogrel 75 mg tablet (Plavix) 75 mg PO DAILY 30 days #30 tabs 10/04/21 05/23/23 05/19/23 Rx potassium chloride 20 mEq 20 meq PO DAILY #30 tabs 10/04/21 05/23/23 05/22/23 Rx tablet,extended release(part/cryst) (Klor-Con M) solifenacin 5 mg tablet (Vesicare) 5 mg PO DAILY #30 tabs 01/06/22 05/23/23 05/22/23 Rx acetaminophen 325 mg tablet 650 mg PO Q4H PRN Pain 03/23/23 05/23/23 05/20/23 History calcium carbonate 500 mg calcium 500 mg PO BID 03/23/23 05/23/23 05/22/23 History (1,250 mg) chewable tablet cocoa butter-shark liver oil 1 supp CA DAILY PRN Hemorrhoids 03/23/23 05/23/23 05/22/23 History rectal suppository famotidine 20 mg tablet 20 mg PO BID 03/23/23 05/23/23 05/22/23 History furosemide 40 mg tablet 40 mg PO DAILY 03/23/23 05/23/23 05/22/23 History gabapentin 300 mg capsule 300 mg PO BID 03/23/23 05/23/23 05/22/23 History loperamide 2 mg tablet (Imodium 2 mg PO Q6H PRN Diarrhea 03/23/23 05/23/23 05/08/23 History A-D) morphine 20 mg/5 mL (4 mg/mL) oral See Rx Instructions .Route 03/23/23 05/23/23 05/20/23 History solution .COMPLEX PRN Pain nitroglycerin 0.4 mg sublingual 0.4 mg sublingual Q5M PRN Chest 03/23/23 05/23/23 Unknown History tablet (Nitrostat) Pain carboxymethylcellulose sodium 1 % 1 drp ophthalmic (eye) TID PRN Dry 05/14/23 05/23/23 05/22/23 History eye liquid gel drops Eyes lanolin alcohols-mineral 1 applic topical DAILY PRN Dry Skin 05/14/23 05/23/23 Unknown History oil-w.petrolatum-ceresin topical cream (Eucerin topical cream) nystatin 100,000 unit/gram topical 1 applic topical BID y 05/14/23 05/23/23 Unknown History powder calcium polycarbophil 625 mg 625 mg PO DAILY 30 days #30 tabs 05/19/23 05/23/23 05/22/23 Rx tablet (Fiber-Lax) albuterol sulfate 2.5 mg/3 mL 2.5 mg inhalation Q4H PRN broncho 05/23/23 05/23/23 04/25/23 History (0.083 %) solution for nebulization pneumonia doxycycline hyclate 100 mg tablet 100 mg PO BID 05/23/23 05/23/23 04/27/23 History linezolid 600 mg tablet 600 mg PO BID 05/23/23 05/23/23 05/22/23 History magnesium L-lactate 84 mg 84 mg PO DAILY 05/23/23 05/23/23 05/22/23 History tablet,extended release (Magtab) pantoprazole 40 mg tablet,delayed 40 mg PO DAILY 05/23/23 05/23/23 05/22/23 History release phenazopyridine 200 mg tablet 200 mg PO TID 05/23/23 05/23/23 05/22/23 History (Pyridium) vitamin A and D See Rx Instructions .Route .COMPLEX 05/23/23 05/23/23 05/22/23 History Allergies Allergy/AdvReac Type Severity Reaction Status Date / Time amoxicillin Allergy Unknown Verified 05/23/23 07:30 cefepime Allergy Unknown Verified 05/23/23 07:30 ciprofloxacin [From Cipro] Allergy Unknown Verified 05/23/23 07:30 codeine Allergy Unknown Verified 05/23/23 07:30 Influenza Virus Vaccines Allergy Unknown Verified 05/23/23 07:30 iodine Allergy Unknown Verified 05/23/23 07:30 Quinolones Allergy Unknown Verified 05/23/23 07:30 Sulfa (Sulfonamide Allergy Unknown Verified 05/23/23 07:30 Antibiotics) Sulfonylureas Allergy Unknown Verified 05/23/23 07:30 PFSH Acute PFSH: Medical History (Updated 05/23/23 @ 12:56 by Ruddy Hernandez MD) Cirrhosis Bacteremia Thrombocytopenia Diabetes Gout Hypothyroidism Acute UTI Non-ST elevation ID (NSTEMI) Confusion Urolithiasis Retained ureteral stent Cystitis cystica History of CVA (cerebrovascular accident) GERD (gastroesophageal reflux disease) Peripheral artery disease Hypertension Chronic back pain Osteoarthritis Polyneuropathy Post herpetic neuralgia CAD in [place] artery Chronic cystitis Surgical History H/O bladder repair surgery S/P tonsillectomy Hip fracture History of cataract surgery History of cholecystectomy H/O: hysterectomy Family History Other Renal cancer Social History Smoking and tobacco/nicotine status: never used tobacco/nicotine Alcohol intake: never Substance/Drug Use: never Adopted: No Caregiver/support person: No Lives independently: No Housing: Group Home Marital status: Current occupational status: retired Current gender identity: Female Vitals/I&O/Wt Last Vital Signs Temp 98.2 F 05/23/23 07:21 Pulse 82 05/23/23 11:00 Resp 15 05/23/23 11:00 BP 133/69 05/23/23 11:00 Pulse Ox 99 05/23/23 11:00 O2 Del Method Room Air 05/23/23 11:00 O2 Flow Rate 3 05/23/23 07:21 Weight last 48 hrs Weight 63.503 kg Physical Exam Narrative: General: No acute distress, AO x 2-3, on 2 L oxygen supplementation HEENT: PERRLA, pupils bilaterally equal and reactive Chest: Normal vesicular breath sounds, no added sounds, equal good air entry bilaterally CVS: S1-S2 regular, no murmurs, no tachycardia, no gallops, no rubs Abdomen: Soft,, bowel sounds sluggish, generalized tenderness more so in lower quadrant, no organomegaly Neuro: No focal deficits, no facial deformity, AO x3, power 5/5 in all limbs Data 05/23/23 08:38 05/23/23 08:38 A&P Assessment and plan (1) Bright red blood per rectum: Recurrent episodes. No diverticulitis on CT abdomen pelvis done. Will consult surgery for colonoscopy. Plan for colonoscopy for now on Wednesday. Full liquid diet with possible bowel regimen tomorrow. Start on stool softener with milk of magnesia and senna Colace twice daily. Monitor hemoglobin daily for now. Patient did receive IV antibiotics for bacteremia till April 08. Has mild leukopenia. Cannot rule out C. difficile. Check stool studies. Protonix IV twice daily. (2) Anemia: Baseline hemoglobin seems to be running at 8.7-9.4. Today 8.7. Target hemoglobin more than 8. Will transfuse if needed. Appreciate recent iron panel, check vitamin B12 and folate levels. (3) Thrombocytopenia: Chronic most likely in setting of liver cirrhosis. Monitor daily. (4) CAD in [place] artery: No active chest pain. Aspirin and Plavix for now on hold given bleeding per rectum. Check A1c, lipid panel. (5) Leukopenia: Could be in setting of liver cirrhosis but seems more acute. No neutropenia. Check respiratory viral panel. Monitor daily for now. (6) Cirrhosis: Plan Shortness of breath: Subjective. Keep oxygen saturation over 90%. Check CT chest without contrast. Adding respiratory viral panel as above. Hypertension: Goal blood pressure less than 140/90 mmHg. Monitor and start antihypertensives accordingly. Altered mental status: Patient seems to be at baseline mentation. Continue to monitor. Check ammonia levels. CODE STATUS: Reviewed from the paperwork at shelter. Patient is DNR/DNI. Full liquid diet Protonix every 12 hourly will suffice as PUD prophylaxis SCDs for DVT prophylaxis. Attestations Medical Necessity Statement*: Admission for more than 2 midnights for management of second admission for bright blood per rectum requiring colonoscopy, anemia in a patient with liver cirrhosis Diagnoses Bright red blood per rectum K62.5 Anemia D64.9 Thrombocytopenia D69.6 CAD in [place] artery I25.10 Leukopenia D72.819 Cirrhosis K74.60
--- NOTE | 2023-05-23 12:35 | PC.NURSE ---
Patient has chronic pain in back. Patient states it is always there and rates at an 8 or higher
--- NOTE | 2023-05-23 12:48 | CTR_ITS ---
PROCEDURE INFORMATION: Exam: CT Chest Without Contrast; Diagnostic Exam date and time: 05/23/2023 2:29 PM Age: 83 years old Clinical indication: Shortness of breath; Additional info: Copd/pna TECHNIQUE: Imaging protocol: Diagnostic computed tomography of the chest without contrast. Radiation optimization: All CT scans at this facility use at least one of these dose optimization techniques: automated exposure control; mA and/or kV adjustment per patient size (includes targeted exams where dose is matched to clinical indication); or iterative reconstruction. REPORTING DATA: Count of CT and Cardiac NM exams in prior 12 months: This patient has received 3 known CTs and 0 known cardiac nuclear medicine studies in the 12 months prior to the current study. COMPARISON: CT angio chest w abd pel w con 03/23/2023 9:25 AM RADIATION DOSE METRICS: Total DLP (mGy-cm): 508.35 FINDINGS: Trachea: Central airways are patent. Opacification of the distal lower lobe bronchi are seen. Lingula subpleural 2.12 centimeters soft tissue opacity is seen with bronchiectatic changes and ground-glass opacities. Lungs: Right upper lobe 1.2 centimeters ground-glass opacity. Bibasilar consolidations with air bronchograms likely compressive atelectasis. Pleural spaces: No pneumothorax. Bilateral pleural effusions [id number]-miku-right with compression atelectasis. Heart: No pericardial effusion. Coronary arteries: Mild coronary artery calcifications. Lymph nodes: Unremarkable. No enlarged lymph nodes. Vasculature: Pulmonary artery measures up to 3.3 centimeters consistent with pulmonary arterial hypertension. Liver: The liver has a nodular contour and there is relative hypertrophy of the caudate lobe, consistent with cirrhosis.There has been a cholecystectomy. Low volume ascites. Splenomegaly with splenorenal varices. Kidneys and ureters: Partially contrast filled ureters are seen. Bones/joints: Unremarkable. No acute fracture. Soft tissues: Unremarkable. CT/CT chest wo con [id number] IMPRESSION: 1. Mild bilateral pleural effusions [id number]-right. 2. Bibasilar lower lobe consolidations [id number]-[id number]-[id number]-right lower with air bronchograms. There is also distal opacification of the lower bronchi. Findings suspicious for aspiration pneumonia versus compressive atelectasis.
[2023-05-23 13:09] LABS: Thyroid Stimulating Hormone 2.02 uIU/mL (0.27-4.20); Vitamin B12 1138 pg/mL (232-1245)
[2023-05-23] MEDS: pantoprazole 40 mg SDV IVP ×2 (13:19→23:30)
[2023-05-23] MEDS: sodium chloride 0.9% 1,000 ML 50 ML IV (13:19)
[2023-05-23] MEDS: magnesium hydroxide 30 mL UDC PO (13:19)
[2023-05-23] MEDS: sennosides-docusate Tablet 1 TAB PO ×2 (13:20→18:20)
[2023-05-23 15:20] LABS: Adenovirus Not Detected (NOT DETECT); Chlamydia Pneumoniae Not Detected (NOT DETECT); Coronavirus 229E,HKU1,NL63,OC4 Not Detected (NOT DETECT); Human Metapneumovirus Not Detected (NOT DETECT); Human Rhinovirus/Enterovirus Not Detected (NOT DETECT); Influenza A Not Detected (NOT DETECT); Influenza A H1 Not Detected (NOT DETECT); Influenza A H1-2009 Not Detected (NOT DETECT); Influenza A H3 Not Detected (NOT DETECT); Influenza B Not Detected (NOT DETECT); Mycoplasma Pneumoniae Not Detected (NOT DETECT); Parainfluenza Virus Type 1 Not Detected (NOT DETECT); Parainfluenza Virus Type 2 Not Detected (NOT DETECT); Parainfluenza Virus Type 3 Not Detected (NOT DETECT); Parainfluenza Virus Type 4 Not Detected (NOT DETECT); Respiratory Syncytial Virus A Not Detected (NOT DETECT); Respiratory Syncytial Virus B Not Detected (NOT DETECT)
[2023-05-23 15:20] LABS: Ammonia 20 umol/L (11-51)
[2023-05-23 15:23] LABS: SARS-COV-2 Detected (NOT DETECT)
--- NOTE | 2023-05-23 16:29 | P.CONIM_ITS ---
Providers/Reason For Consult 2 Consulting Physician/Specialty*: General surgery Reason for Consult*: Lower GI bleeding Attending Physician: Ruddy Hernandez MD Primary Care Provider: Sudheer Wood MD History of Present Illness History of Present Illness Daksha Machuca is a 83 year old female with multiple medical comorbidities who was recently admitted to the hospital with lower GI bleeding, at the time evaluated patient and my assessment was that the bleeding most likely comes from her hemorrhoids. Patient was supposed to stop anticoagulation and follow-up as outpatient for elective endoscopy. Over the last couple of days group home staff has noted some blood in the stool and therefore decided to send the patient back to the hospital for evaluation. In the ER a drop of 1 point of the hemoglobin was noted, therefore the patient was admitted and I was consulted for possible lower endoscopy. Of note patient was also noted to be neutropenic and with downtrending platelets which prompted the evaluation for COVID-pneumonia, COVID was positive and a CT of the chest show evidence of bilateral pneumonia. Currently this patient is asymptomatic from the pulmonary standpoint. Review of Systems 2 Narrative: 10 point review of systems done negative otherwise noted in HPI Medications/Allergies Home Medications Medication Instructions Recorded Confirmed Last Taken Type bisacodyl 10 mg rectal suppository 10 mg OR DAILY PRN Constipation 07/14/19 05/23/23 Unknown History polyethylene glycol 3350 17 17 gm PO Q2D 08/30/19 05/23/23 05/22/23 History gram/dose oral powder (Miralax) fluticasone propionate 50 1 spray intranasal BID@01/09/21 05/23/23 05/22/23 History mcg/actuation nasal spray,suspension magnesium hydroxide 400 mg/5 mL 30 ml PO Q24H PRN Constipation 01/09/21 05/23/23 05/22/23 History oral suspension (Milk of Magnesia) sertraline 25 mg tablet 25 mg PO DAILY@08/22/21 05/23/23 05/22/23 History gabapentin 600 mg tablet 600 mg PO DAILY 09/24/21 05/23/23 05/22/23 History multivitamin 1 tab PO DAILY@09/24/21 05/23/23 05/22/23 History ondansetron HCl 4 mg tablet 4 mg PO Q4H PRN Nausea And Vomiting 09/24/21 05/23/23 Unknown History sennosides 8.6 mg-docusate sodium 2 tab PO BID@08,20 09/24/21 05/23/23 05/22/23 History 50 mg tablet (Stool Softener-Laxative) sodium phosphates 19 gram-7 118 ml OR DAILY PRN Constipation 09/24/21 05/23/23 Unknown History gram/118 mL enema (Cnqjs-[id number]-Uxd Enema) aspirin 81 mg tablet,delayed 81 mg PO DAILY 30 days #30 tabs 10/04/21 05/23/23 05/19/23 Rx release clopidogrel 75 mg tablet (Plavix) 75 mg PO DAILY 30 days #30 tabs 10/04/21 05/23/23 05/19/23 Rx potassium chloride 20 mEq 20 meq PO DAILY #30 tabs 10/04/21 05/23/23 05/22/23 Rx tablet,extended release(part/cryst) (Klor-Con M) solifenacin 5 mg tablet (Vesicare) 5 mg PO DAILY #30 tabs 01/06/22 05/23/23 05/22/23 Rx acetaminophen 325 mg tablet 650 mg PO Q4H PRN Pain 03/23/23 05/23/23 05/20/23 History calcium carbonate 500 mg calcium 500 mg PO BID 03/23/23 05/23/23 05/22/23 History (1,250 mg) chewable tablet cocoa butter-shark liver oil 1 supp OR DAILY PRN Hemorrhoids 03/23/23 05/23/23 05/22/23 History rectal suppository famotidine 20 mg tablet 20 mg PO BID 03/23/23 05/23/23 05/22/23 History furosemide 40 mg tablet 40 mg PO DAILY 03/23/23 05/23/23 05/22/23 History gabapentin 300 mg capsule 300 mg PO BID 03/23/23 05/23/23 05/22/23 History loperamide 2 mg tablet (Imodium 2 mg PO Q6H PRN Diarrhea 03/23/23 05/23/23 05/08/23 History A-D) morphine 20 mg/5 mL (4 mg/mL) oral See Rx Instructions .Route 03/23/23 05/23/23 05/20/23 History solution .COMPLEX PRN Pain nitroglycerin 0.4 mg sublingual 0.4 mg sublingual Q5M PRN Chest 03/23/23 05/23/23 Unknown History tablet (Nitrostat) Pain carboxymethylcellulose sodium 1 % 1 drp ophthalmic (eye) TID PRN Dry 05/14/23 05/23/23 05/22/23 History eye liquid gel drops Eyes lanolin alcohols-mineral 1 applic topical DAILY PRN Dry Skin 05/14/23 05/23/23 Unknown History oil-w.petrolatum-ceresin topical cream (Eucerin topical cream) nystatin 100,000 unit/gram topical 1 applic topical BID y 05/14/23 05/23/23 Unknown History powder calcium polycarbophil 625 mg 625 mg PO DAILY 30 days #30 tabs 05/19/23 05/23/23 05/22/23 Rx tablet (Fiber-Lax) albuterol sulfate 2.5 mg/3 mL 2.5 mg inhalation Q4H PRN broncho 05/23/23 05/23/23 04/25/23 History (0.083 %) solution for nebulization pneumonia doxycycline hyclate 100 mg tablet 100 mg PO BID 05/23/23 05/23/23 04/27/23 History linezolid 600 mg tablet 600 mg PO BID 05/23/23 05/23/23 05/22/23 History magnesium L-lactate 84 mg 84 mg PO DAILY 05/23/23 05/23/23 05/22/23 History tablet,extended release (Magtab) pantoprazole 40 mg tablet,delayed 40 mg PO DAILY 05/23/23 05/23/23 05/22/23 History release phenazopyridine 200 mg tablet 200 mg PO TID 05/23/23 05/23/23 05/22/23 History (Pyridium) vitamin A and D See Rx Instructions .Route .COMPLEX 05/23/23 05/23/23 05/22/23 History Allergies Allergy/AdvReac Type Severity Reaction Status Date / Time amoxicillin Allergy Unknown Verified 05/23/23 07:30 cefepime Allergy Unknown Verified 05/23/23 07:30 ciprofloxacin [From Cipro] Allergy Unknown Verified 05/23/23 07:30 codeine Allergy Unknown Verified 05/23/23 07:30 Influenza Virus Vaccines Allergy Unknown Verified 05/23/23 07:30 iodine Allergy Unknown Verified 05/23/23 07:30 Quinolones Allergy Unknown Verified 05/23/23 07:30 Sulfa (Sulfonamide Allergy Unknown Verified 05/23/23 07:30 Antibiotics) Sulfonylureas Allergy Unknown Verified 05/23/23 07:30 Current Medications Generic Name Dose Route Start Last Admin Trade Name Freq PRN Reason Stop Dose Admin Sodium Chloride 1,000 mls @ 50 mls/hr 05/23/23 12:23 05/23/23 13:19 Sodium Chloride 0.9% IV 50 mls/hr .Q20H RAMO Administration Magnesium Hydroxide 30 ml 05/23/23 12:45 05/23/23 13:19 Magnesium Hydroxide 30 Ml Udc PO 30 ml DAILY RAMO Administration Protocol Pantoprazole Sodium 40 mg 05/23/23 12:23 05/23/23 13:19 Pantoprazole 40 Mg Sdv IVP 40 mg Q12H RAMO Administration Senna/Docusate Sodium 1 tab 05/23/23 12:50 05/23/23 13:20 Sennosides-Docusate Tablet PO 1 tab BID RAMO Administration PFSH Acute 2 PFSH: Medical History (Updated 05/23/23 @ 12:56 by Ruddy Hernandez MD) Cirrhosis Bacteremia Thrombocytopenia Diabetes Gout Hypothyroidism Acute UTI Non-ST elevation OR (NSTEMI) Confusion Urolithiasis Retained ureteral stent Cystitis cystica History of CVA (cerebrovascular accident) GERD (gastroesophageal reflux disease) Peripheral artery disease Hypertension Chronic back pain Osteoarthritis Polyneuropathy Post herpetic neuralgia CAD in [place] artery Chronic cystitis Surgical History H/O bladder repair surgery S/P tonsillectomy Hip fracture History of cataract surgery History of cholecystectomy H/O: hysterectomy Family History Other Renal cancer Social History Smoking and tobacco/nicotine status: never used tobacco/nicotine Alcohol intake: never Substance/Drug Use: never Adopted: No Caregiver/support person: No Lives independently: No Housing: Residential Marital status: Current occupational status: retired Current gender identity: Female Vitals/I&O/Wt Last Vital Signs Temp 97.9 F 05/23/23 16:00 Pulse 69 12/31/23 16:00 Resp 20 H 05/23/23 16:00 BP 128/70 05/23/23 16:00 Pulse Ox 98 05/23/23 16:00 O2 Del Method Nasal Cannula 05/23/23 16:00 O2 Flow Rate 3 05/23/23 07:21 Weight last 48 hrs Weight 163 lb 8 oz Weight 140 lb Physical Exam 2 Narrative: Patient is hard of hearing GI: OTHER: Abdomen is soft, minimally tender, nondistended. On the rectal examination hemorrhoids noted to be less inflamed than during previous visit, digital rectal exam shows soft stool in the rectal vault no evidence of blood residue in my glove. Data 05/23/23 08:38 05/23/23 08:38 A&P Assessment and plan (1) Bright red blood per rectum: Plan After a complete history, physical examination and review of all available clinical data. I think bleeding most likely is coming from her hemorrhoids, but due to recurrent presentation I will be willing to offer the patient diagnostic colonoscopy to evaluate for other sources of possible GI bleeding. At this point I do think that the majority of her lab normalities are most likely due to COVID than 2 occurring active bleeding. Patient is currently asymptomatic from the respiratory standpoint and after discussion with the medical team we have decided that is safe to proceed with endoscopy.. I have discussed all the risks and benefits of the colonoscopy. Including, the risk of perforation requiring surgical intervention, rectal bleeding, incomplete colonoscopy requiring repeat procedure in 3 months, missed polyps, need for additional procedures. Patient shows understanding and wishes to proceed. Endoscopy will be booked for Wednesday and patient will receive bowel prep tomorrow. Of note, I have informed the patient that she is a higher risk for possible perforation, due to medical comorbidities as well as diverticulum noted on imaging, I have also informed her that in the case of this happening she might require surgery which will put her on a very high risk for morbidity and mortality due to her multiple comorbidities. Patient agrees and wishes to proceed. Coding Level of Care Code Acute Code for Chg Fwd Diagnoses Bright red blood per rectum K62.5
[2023-05-23] MEDS: remdesivir 200 MG in sodium chloride 0.9% (100 ml) 60 ML 100 MG IV (16:30)
[2023-05-23] MEDS: gabapentin 300 mg Capsule 600 MG PO (18:20)
[2023-05-24] VITALS (13 sets, daily range): BP systolic 109–129; BP diastolic 58–73; PULSE 68–94; RESP 16–20; TEMP 36.1–36.7; O2SAT 94–100
[2023-05-24] MEDS: ipratropium-albuterol 3 mL Neb INHALATION ×3 (02:56→21:22)
[2023-05-24 03:02] LABS: Hematocrit 25.8 % (36-47); Lymphocytes # 0.2 10^3/uL (0.8-4.8); Mean Corpuscular HGB Conc 30.6 g/dL (30-55); Mean Corpuscular Volume 101.2 fl (85-98); Mean Platelet Volume 11.5 fL (7.4-10.4); Monocytes # 0.1 10^3/uL (0.2-0.9); Monocytes % 8.4 %; Neutrophils % 76.9 %; Nucleated Red Blood Cells % 0 %; Platelet Count 40 10^3/cmm (157-399); Red Blood Count 2.55 10^6/uL (3.85-5.65); Red Cell Distribution Width 16.6 % (12.1-15.1); White Blood Count 1.43 10^3/uL (3.29-11.43)
[2023-05-24 03:27] LABS: Alanine Aminotransferase 11 U/L (0-33); Albumin Level 2.3 g/dL (3.5-5.2); Alkaline Phosphatase 86 U/L (35-105); Anion Gap 10.6 (5-19); Aspartate Amino Transferase 26 U/L (0-32); Blood Urea Nitrogen 9 mg/dL (8-23); Calcium 7.4 mg/dL (8.5-10.5); Carbon Dioxide 26 mmol/L (22-29); Chloride 108 mmol/L (98-107); Globulin 3.2 g/dL (1.3-4.6); Glucose 120 mg/dL (65-115); Magnesium 1.7 mg/dL (1.7-2.3); Osmolality Calculated 292 mOsm/kg (285-295); Phosphorus 2.1 mg/dL (2.5-4.5); Potassium 3.6 mmol/L (3.5-5.1); Sodium 141 mmol/L (136-145); Total Bilirubin 0.6 mg/dL (0.15-1.2); Total Protein 5.5 g/dL (6.6-8.7)
[2023-05-24 03:28] LABS: Cholesterol 119 mg/dL (0-200); HDL Cholesterol 29 mg/dL (60-100); LDL Cholesterol Calculated 79 mg/dL (50-129); LDL HDL Ratio 2.72 RATIO (0.00-3.22); Triglycerides 54 mg/dL (0-150)
[2023-05-24 03:51] LABS: Estmated Average Glucose 80; Hemoglobin A1C 4.4 % (4.0-6.0)
[2023-05-24 04:04] LABS: Folate Level > 20.0 ng/mL (4.8-37.3)
[2023-05-24] MEDS: sertraline 50 mg Tablet 25 MG PO (06:35)
[2023-05-24] MEDS: sodium chloride 0.9% 1,000 ML 50 ML IV (08:55)
[2023-05-24] MEDS: sennosides-docusate Tablet 1 TAB PO ×2 (08:56→17:06)
[2023-05-24] MEDS: gabapentin 300 mg Capsule PO (08:56)
[2023-05-24] MEDS: magnesium hydroxide 30 mL UDC PO (08:56)
[2023-05-24] MEDS: bisacodyl 5 mg Tablet 20 MG PO (08:56)
[2023-05-24] MEDS: acetaminophen 325 mg Tablet 650 MG PO ×2 (11:07→17:06)
[2023-05-24] MEDS: magnesium citrate Btl 296 mL PO ×2 (11:08→21:50)
--- NOTE | 2023-05-24 11:49 | P.PN_ITS ---
Subjective 2 Subjective: Patient has remained stable over the last 24 hours, no further reports of bloody stools. She is taking bowel prep for possible colonoscopy tomorrow. Vitals/I&O/Wt Last Vital Signs Temp 98.0 F 05/24/23 08:00 Pulse 68 05/24/23 08:00 Resp 16 05/24/23 08:00 BP 110/64 05/24/23 08:00 Pulse Ox 94 05/24/23 08:00 O2 Del Method Nasal Cannula 05/24/23 08:00 O2 Flow Rate 2 05/24/23 02:56 05/23/23 05/24/23 05/24/23 22:59 06:59 14:59 Intake Total 580 / 580 980 / 980 Balance 580 / 580 980 / 980 Weight last 48 hrs Weight 163 lb 8 oz Weight 140 lb Physical Exam 2 GI: OTHER: Abdomen is soft, nontender, nondistended. Data 05/24/23 02:04 05/24/23 02:04 Micro: Microbiology 05/23/23 09:00 Urine Culture - Final Urine,Clean Catch 05/23/23 21:20 Stool Lactoferrin - Final Stool Occult Blood (FIT) - Final A&P Assessment and plan (1) Bright red blood per rectum: Plan Patient has remained stable. Laboratory workup shows a trend down on all the CBC, including white count hemoglobin and platelets. Previously discussed with the patient I have agreed to proceed with colonoscopy to rule out GI bleeding as cause of her low hemoglobin. I will proceed with lower endoscopy, with a compromise that in the case of polypectomy being negative I will probably have to reschedule the patient for a therapeutic procedure once her platelet count increases. Patient shows understanding. Currently taking the bowel prep and tolerating. Attestations 2 Medical Necessity Statement*: Per medical team Coding Level of Care Code Acute Code for Chg Fwd Diagnoses Bright red blood per rectum K62.5
[2023-05-24] MEDS: pantoprazole 40 mg SDV IVP (12:17)
--- NOTE | 2023-05-24 13:09 | P.PN_ITS ---
Subjective 2 Subjective: Pancytopenic WBC 1.43, hemoglobin 7.9, platelets 40 Plan for scope in AM. Vitals/I&O/Wt Last Vital Signs Temp 97.0 F L 05/24/23 12:06 Pulse 83 05/24/23 12:06 Resp 20 H 05/24/23 12:06 BP 123/73 05/24/23 12:06 Pulse Ox 100 05/24/23 12:06 O2 Del Method Nasal Cannula 05/24/23 12:06 O2 Flow Rate 2 05/24/23 02:56 05/23/23 05/24/23 05/24/23 22:59 06:59 14:59 Intake Total 580 / 580 980 / 980 Balance 580 / 580 980 / 980 Weight last 48 hrs Weight 74.162 kg Weight 63.503 kg Physical Exam 2 Narrative: General: No acute distress, AO x 2-3, on 2 L oxygen supplementation HEENT: PERRLA, pupils bilaterally equal and reactive Chest: Normal vesicular breath sounds, no added sounds, equal good air entry bilaterally CVS: S1-S2 regular, no murmurs, no tachycardia, no gallops, no rubs Abdomen: Soft,, bowel sounds sluggish, generalized tenderness more so in lower quadrant, no organomegaly Neuro: No focal deficits, no facial deformity, AO x3 Data 05/24/23 02:04 05/24/23 02:04 Micro: Microbiology 05/23/23 09:00 Urine Culture - Final Urine,Clean Catch 05/23/23 21:20 Stool Lactoferrin - Final Stool Occult Blood (FIT) - Final A&P Assessment and plan (1) Bright red blood per rectum: Recurrent episodes. No diverticulitis on CT abdomen pelvis done. Will consult surgery for colonoscopy. Plan for colonoscopy for now on Wednesday. Full liquid diet with possible bowel regimen tomorrow. Start on stool softener with milk of magnesia and senna Colace twice daily. Monitor hemoglobin daily for now. Hemoglobin 7.9 this morning. History of CAD. Goal hemoglobin greater than 8. Will order for 1 unit packed RBC. Pancytopenia: Most likely secondary to liver disease versus COVID-19? We will continue to monitor. Order 1 unit blood this morning. Monitor CBC every 12 hours. Patient did receive IV antibiotics for bacteremia till April 08. Has mild leukopenia. Cannot rule out C. difficile. Check stool studies. Protonix IV twice daily. (2) Anemia: Baseline hemoglobin seems to be running at 8.7-9.4. Today 8.7. Target hemoglobin more than 8. Will transfuse if needed. Appreciate recent iron panel, check vitamin B12 and folate levels. (3) Thrombocytopenia: Chronic most likely in setting of liver cirrhosis. Monitor daily. (4) CAD in [place] artery: No active chest pain. Aspirin and Plavix for now on hold given bleeding per rectum. Check A1c, lipid panel. (5) Leukopenia: Could be in setting of liver cirrhosis but seems more acute. No neutropenia. Check respiratory viral panel. Monitor daily for now. (6) Cirrhosis: Plan Shortness of breath: Subjective. Keep oxygen saturation over 90%. Check CT chest without contrast. Adding respiratory viral panel as above. Hypertension: Goal blood pressure less than 140/90 mmHg. Monitor and start antihypertensives accordingly. Altered mental status: Patient seems to be at baseline mentation. Continue to monitor. Check ammonia levels. CODE STATUS: Reviewed from the paperwork at intermediate. Patient is DNR/DNI. Full liquid diet Protonix every 12 hourly will suffice as PUD prophylaxis SCDs for DVT prophylaxis. Attestations 2 Medical Necessity Statement*: Admission for more than 2 midnights for management of second admission for bright blood per rectum requiring colonoscopy, anemia in a patient with liver cirrhosis Diagnoses Bright red blood per rectum K62.5 Anemia D64.9 Thrombocytopenia D69.6 CAD in [place] artery I25.10 Leukopenia D72.819 Cirrhosis K74.60
[2023-05-24 14:17] LABS: Basophils % 0.1 %; Eosinophils # 0.1 10^3/uL (0.0-0.8); Hematocrit 31.8 % (36-47); Lymphocytes % 12.4 %; Mean Corpuscular HGB Conc 30.5 g/dL (30-55); Mean Corpuscular Hemoglobin 31.7 pg (27-33); Mean Corpuscular Volume 103.9 fl (85-98); Mean Platelet Volume 11.3 fL (7.4-10.4); Monocytes # 0.6 10^3/uL (0.2-0.9); Monocytes % 6.9 %; Neutrophils # 6.49 10^3/uL (1.8-7.7); Neutrophils % 79.4 %; Nucleated Red Blood Cells % 0 %; Platelet Count 101 10^3/cmm (157-399); Red Blood Count 3.06 10^6/uL (3.85-5.65); Red Cell Distribution Width 17.2 % (12.1-15.1); White Blood Count 8.17 10^3/uL (3.29-11.43)
[2023-05-24] MEDS: dexamethasone 10 mg/mL INJ 6 MG IVP (15:18)
[2023-05-24] MEDS: remdesivir 100 MG in sodium chloride 0.9% (100 ml) 80 ML IV (16:50)
[2023-05-24] MEDS: gabapentin 300 mg Capsule 600 MG PO (17:06)
--- NOTE | 2023-05-24 18:23 | PC.NURSE ---
Attempted to call patients family x3, Maryjane Machuca for consent for blood and colonoscopy tomorrow 05/25/23, no answering machine available to leave a message. No answer from family at this time.
[2023-05-24] MEDS: budesonide 0.5 mg/2 mL Neb INHALATION (21:22)
[2023-05-24] MEDS: morphine 4 mg/mL SDV 1 mL 2 MG IVP (22:01)
[2023-05-24] MEDS: ondansetron 2 mg/ML SDV 2 mL 4 MG IVP (22:01)
[2023-05-25] VITALS (14 sets, daily range): BP systolic 105–151; BP diastolic 58–80; PULSE 75–87; RESP 12–19; TEMP 36.4–36.9; O2SAT 93–100; BMI 32.1
[2023-05-25] MEDS: pantoprazole 40 mg SDV IVP ×3 (00:55→23:27)
[2023-05-25 01:30] LABS: Eosinophils % 0.3 %; Hematocrit 27.3 % (36-47); Lymphocytes # 0.3 10^3/uL (0.8-4.8); Lymphocytes % 8.5 %; Mean Corpuscular HGB Conc 30.4 g/dL (30-55); Mean Corpuscular Hemoglobin 31.4 pg (27-33); Mean Corpuscular Volume 103.4 fl (85-98); Mean Platelet Volume 10.7 fL (7.4-10.4); Monocytes # 0.2 10^3/uL (0.2-0.9); Monocytes % 4.4 %; Neutrophils # 2.96 10^3/uL (1.8-7.7); Neutrophils % 86.2 %; Nucleated Red Blood Cells % 0 %; Platelet Count 54 10^3/cmm (157-399); Red Blood Count 2.64 10^6/uL (3.85-5.65); Red Cell Distribution Width 17.1 % (12.1-15.1); White Blood Count 3.43 10^3/uL (3.29-11.43)
[2023-05-25 01:48] LABS: Anion Gap 11.6 (5-19); Blood Urea Nitrogen 13 mg/dL (8-23); Calcium 7.9 mg/dL (8.5-10.5); Carbon Dioxide 23 mmol/L (22-29); Chloride 109 mmol/L (98-107); Glucose 110 mg/dL (65-115); Osmolality Calculated 291 mOsm/kg (285-295); Potassium 3.6 mmol/L (3.5-5.1); Sodium 140 mmol/L (136-145)
[2023-05-25] MEDS: ipratropium-albuterol 3 mL Neb INHALATION ×2 (02:48→13:52)
--- NOTE | 2023-05-25 06:30 | W.PM.OPSUD ---
Surgery/Procedure H&P Update DATE OF PROCEDURE: May 25, 2023 DATE H&P PERFORMED: 05/23/23 H&P UPDATE INFORMATION: I have reviewed H&P completed within last 30 days, I have examined patient prior to procedure, No changes to prior documentation and [place] [facility] [place] indicated PLANNED PROCEDURE: Operation Date: 05/25/23 06:30 Proposed Procedures p Colonoscopy(Not Applicable) - Pawel Chappell MD
--- NOTE | 2023-05-25 06:35 | PC.NURSE ---
Report given to GI lab nurse. Patient off floor and to GI lab.
--- NOTE | 2023-05-25 06:56 | P.ANESASSM_ITS ---
Pre-Anesthetic Assessment Height/Weight: Height 1.52 m Weight 74.525 kg Temp Pulse Resp BP Pulse Ox O2 Del Method O2 Flow Rate 98.1 F 83 16 151/60 98 Nasal Cannula 2 05/25/23 06:50 05/25/23 06:50 05/25/23 06:50 05/25/23 06:50 05/25/23 06:50 05/25/23 06:50 05/25/23 06:50 Preop Diagnosis: Gi bleed Operation Date: 05/25/23 06:30 Proposed Procedures p Colonoscopy(Not Applicable) - Pawel Chappell MD Was Beta Alonso taken within 24 hours: N/A Was Clonidine taken within 24 hours: N/A Last intake: Intake Last Liquid Date 05/24/23 Last Liquid Time 22:00 Social No alcohol and No tobacco Exam alert and regular rate & rhythm Airway Submandibular: within normal limits Cervical ROM: within normal limits Mallampati: Class I Dentition: false Pulmonary Shortness of Breath Covid positive CV/HEM Coronary Artery Disease and Hypertension PCI None reported Hepatic Cirrhosis GI Gastroesophageal Reflux Disease [facility] [place] Osteoarthritis/DJD Neuropsych Deficit Anesthetic Plan ASA status: 3 Anesthesia: MAC Risk of > 500 ml blood loss (7ml/kg in children): No Medications/Allergies Home Medications Medication Instructions Recorded Confirmed Last Taken Type bisacodyl 10 mg rectal suppository 10 mg MN DAILY PRN Constipation 07/14/19 05/23/23 Unknown History polyethylene glycol 3350 17 17 gm PO Q2D 08/30/19 05/23/23 05/22/23 History gram/dose oral powder (Miralax) fluticasone propionate 50 1 spray intranasal BID@01/09/21 05/23/23 05/22/23 History mcg/actuation nasal spray,suspension magnesium hydroxide 400 mg/5 mL 30 ml PO Q24H PRN Constipation 01/09/21 05/23/23 05/22/23 History oral suspension (Milk of Magnesia) sertraline 25 mg tablet 25 mg PO DAILY@08/22/21 05/23/23 05/22/23 History gabapentin 600 mg tablet 600 mg PO DAILY 09/24/21 05/23/23 05/22/23 History multivitamin 1 tab PO DAILY@09/24/21 05/23/23 05/22/23 History ondansetron HCl 4 mg tablet 4 mg PO Q4H PRN Nausea And Vomiting 09/24/21 05/23/23 Unknown History sennosides 8.6 mg-docusate sodium 2 tab PO BID@08,20 09/24/21 05/23/23 05/22/23 History 50 mg tablet (Stool Softener-Laxative) sodium phosphates 19 gram-7 118 ml MN DAILY PRN Constipation 09/24/21 05/23/23 Unknown History gram/118 mL enema (Alwpa-Xt-Olo Enema) aspirin 81 mg tablet,delayed 81 mg PO DAILY 30 days #30 tabs 10/04/21 05/23/23 05/19/23 Rx release clopidogrel 75 mg tablet (Plavix) 75 mg PO DAILY 30 days #30 tabs 10/04/21 05/23/23 05/19/23 Rx potassium chloride 20 mEq 20 meq PO DAILY #30 tabs 10/04/21 05/23/23 05/22/23 Rx tablet,extended release(part/cryst) (Klor-Con M) solifenacin 5 mg tablet (Vesicare) 5 mg PO DAILY #30 tabs 01/06/22 05/23/23 05/22/23 Rx acetaminophen 325 mg tablet 650 mg PO Q4H PRN Pain 03/23/23 05/23/23 05/20/23 History calcium carbonate 500 mg calcium 500 mg PO BID 03/23/23 05/23/23 05/22/23 History (1,250 mg) chewable tablet cocoa butter-shark liver oil 1 supp MN DAILY PRN Hemorrhoids 03/23/23 05/23/23 05/22/23 History rectal suppository famotidine 20 mg tablet 20 mg PO BID 03/23/23 05/23/23 05/22/23 History furosemide 40 mg tablet 40 mg PO DAILY 03/23/23 05/23/23 05/22/23 History gabapentin 300 mg capsule 300 mg PO BID 03/23/23 05/23/23 05/22/23 History loperamide 2 mg tablet (Imodium 2 mg PO Q6H PRN Diarrhea 03/23/23 05/23/23 05/08/23 History A-D) morphine 20 mg/5 mL (4 mg/mL) oral See Rx Instructions .Route 03/23/23 05/23/2305/20/23 History solution .COMPLEX PRN Pain nitroglycerin 0.4 mg sublingual 0.4 mg sublingual Q5M PRN Chest 03/23/23 05/23/23 Unknown History tablet (Nitrostat) Pain carboxymethylcellulose sodium 1 % 1 drp ophthalmic (eye) TID PRN Dry 05/14/23 05/23/23 05/22/23 History eye liquid gel drops Eyes lanolin alcohols-mineral 1 applic topical DAILY PRN Dry Skin 05/14/23 05/23/23 Unknown History oil-w.petrolatum-ceresin topical cream (Eucerin topical cream) nystatin 100,000 unit/gram topical 1 applic topical BID y 05/14/23 05/23/23 Unknown History powder calcium polycarbophil 625 mg 625 mg PO DAILY 30 days #30 tabs 05/19/23 05/23/23 05/22/23 Rx tablet (Fiber-Lax) albuterol sulfate 2.5 mg/3 mL 2.5 mg inhalation Q4H PRN broncho 05/23/23 05/23/23 04/25/23 History (0.083 %) solution for nebulization pneumonia doxycycline hyclate 100 mg tablet 100 mg PO BID 05/23/23 05/23/23 04/27/23 History linezolid 600 mg tablet 600 mg PO BID 05/23/23 05/23/23 05/22/23 History magnesium L-lactate 84 mg 84 mg PO DAILY 05/23/23 05/23/23 05/22/23 History tablet,extended release (Magtab) pantoprazole 40 mg tablet,delayed 40 mg PO DAILY 05/23/23 05/23/23 05/22/23 History release phenazopyridine 200 mg tablet 200 mg PO TID 05/23/23 05/23/23 05/22/23 History (Pyridium) vitamin A and D See Rx Instructions .Route .COMPLEX 05/23/23 05/23/23 05/22/23 History Allergies Allergy/AdvReac Type Severity Reaction Status Date / Time amoxicillin Allergy Unknown Verified 05/23/23 07:30 cefepime Allergy Unknown Verified 05/23/23 07:30 ciprofloxacin [From Cipro] Allergy Unknown Verified 05/23/23 07:30 codeine Allergy Unknown Verified 12/31/23 07:30 Influenza Virus Vaccines Allergy Unknown Verified 05/23/23 07:30 iodine Allergy Unknown Verified 05/23/23 07:30 Quinolones Allergy Unknown Verified 05/23/23 07:30 Sulfa (Sulfonamide Allergy Unknown Verified 05/23/23 07:30 Antibiotics) Sulfonylureas Allergy Unknown Verified 05/23/23 07:30 Current Medications Generic Name Dose Route Start Last Admin Trade Name Freq PRN Reason Stop Dose Admin Acetaminophen 650 mg 05/23/23 12:23 05/24/23 17:06 Acetaminophen 325 Mg Tablet PO 650 mg Q6H PRN Administration Mild/Mod Pain Or Temp >/= 101 Albuterol/Ipratropium 3 ml 05/23/23 20:00 05/25/23 02:48 Ipratropium-Albuterol 3 Ml Neb INHALATION 3 ml Q6H.RESP RAMO Administration Budesonide 0.5 mg 05/23/23 20:00 05/24/23 21:22 Budesonide 0.5 Mg/2 Ml Neb INHALATION 0.5 mg BID.RESPIRATORY RAMO Administration Dexamethasone 6 mg 05/24/23 15:45 05/24/23 15:18 Dexamethasone 10 Mg/Ml Inj IVP 6 mg Q24H RAMO Administration Gabapentin 600 mg 05/23/23 18:00 05/24/23 17:06 Gabapentin 300 Mg Capsule PO 600 mg QPM RAMO Administration Gabapentin 300 mg 05/24/23 09:00 05/24/23 08:56 Gabapentin 300 Mg Capsule PO 300 mg DAILY RAMO Administration Sodium Chloride 1,000 mls @ 30 mls/hr 05/23/23 12:23 05/24/23 21:47 Sodium Chloride 0.9% IV 30 mls/hr .Q24H RAMO Infusion Remdesivir 100 mg/ Sodium 100 mls @ 100 mls/hr 05/24/23 16:00 05/24/23 19:33 Chloride IV Infused Q24H RAMO Infusion Magnesium Hydroxide 30 ml 05/23/23 12:45 05/24/23 08:56 Magnesium Hydroxide 30 Ml Udc PO 30 ml DAILY RAMO Administration Protocol Morphine Sulfate 2 mg 05/23/23 12:23 05/24/23 22:01 Morphine 4 Mg/Ml Sdv 1 Ml IVP 2 mg Q4H PRN Administration SEVERE PAIN Ondansetron HCl 4 mg 05/23/23 12:23 05/24/23 22:01 Ondansetron 2 Mg/Ml Sdv 2 Ml IVP 4 mg Q8H PRN Administration vomiting, or N/V if npo Pantoprazole Sodium 40 mg 05/23/23 12:23 05/25/23 00:55 Pantoprazole 40 Mg Sdv IVP 40 mg Q12H RAMO Administration Senna/Docusate Sodium 1 tab 05/23/23 12:50 05/24/23 17:06 Sennosides-Docusate Tablet PO 1 tab BID RAMO Administration PFSH Anesthesia Medical History (Updated 05/24/23 @ 07:43 by Jamie Gamino DO) Cirrhosis Bacteremia Thrombocytopenia Diabetes Gout Hypothyroidism Acute UTI Non-ST elevation [place] (NSTEMI) Confusion Urolithiasis Retained ureteral stent Cystitis cystica History of CVA (cerebrovascular accident) GERD (gastroesophageal reflux disease) Peripheral artery disease Hypertension Chronic back pain Osteoarthritis Polyneuropathy Post herpetic neuralgia CAD in [place] artery Chronic cystitis Surgical History H/O bladder repair surgery S/P tonsillectomy Hip fracture History of cataract surgery History of cholecystectomy H/O: hysterectomy Family History Other Renal cancer Social History Smoking and tobacco/nicotine status: never used tobacco/nicotine Alcohol intake: never Substance/Drug Use: never Adopted: No Caregiver/support person: No Lives independently: No Housing: Longterm Marital status: Current occupational status: retired Current gender identity: Female Data Anesthesia 05/25/23 01:20 05/25/23 01:20 Short CBC 05/23/23 05/24/23 05/24/23 Range/Units 08:38 02:04 14:00 WBC 2.42 L 1.43 L 8.17 (3.29-11.43) 10^3/uL Hgb 8.70 L 7.90 L 9.70 L (11.27-16.99) g/dL Hct 28.3 L 25.8 L 31.8 L (36-47) % MCV 102.9 H 101.2 H 103.9 H (85-98) fl Plt Count 54 L 40 L 101 L D (157-399) 10^3/cmm Neut % (Auto) 70.6 76.9 79.4 % Neut # (Auto) 1.71 L 1.10 L 6.49 (1.8-7.7) 10^3/uL 05/25/23 Range/Units 01:20 WBC 3.43 (3.29-11.43) 10^3/uL Hgb 8.30 L (11.27-16.99) g/dL Hct 27.3 L (36-47) % MCV 103.4 H (85-98) fl Plt Count 54 L D (157-399) 10^3/cmm Neut % (Auto) 86.2 % Neut # (Auto) 2.96 (1.8-7.7) 10^3/uL BMP 05/23/23 05/24/23 05/25/23 08:38 02:04 01:20 Sodium 135 L 141 140 Potassium 3.3 L 3.6 3.6 Chloride 103 108 H 109 H Carbon Dioxide 24 26 23 BUN 8 9 13 Creatinine 0.7 0.6 0.6 Glucose 95 120 H 110 Calcium 7.8 L 7.4 L 7.9 L Liver Function 05/23/23 05/24/23 Range/Units 08:38 02:04 Total Bilirubin 1.1 0.6 (0.15-1.2) mg/dL AST 32 26 (0-32) U/L ALT 12 11 (0-33) U/L Alkaline Phosphatase 99 86 (35-105) U/L Albumin 2.5 L 2.3 L (3.5-5.2) g/dL Urine 05/23/23 Range/Units 09:00 Urine Color [place] A (Yellow) Urine Appearance Cloudy A (CLEAR) Urine pH TNP Ur Specific [place] TNP Urine Protein TNP Urine Glucose (UA) TNP Urine Ketones TNP Urine Nitrate TNP Urine Bilirubin TNP Ur Leukocyte Esterase TNP Urine RBC 15-25 H (0-2) /hpf Urine WBC 25-40 H (0-5) /hpf Blood Bank 05/23/23 08:38 Blood Type O Positive Rho(D) Type Rh positive Antibody Screen Negative COVID Results 05/23/23 13:28 Coronavirus 229E (PCR) Not detected SARS-CoV-2 (PCR) Detected A Coags 05/23/23 08:38 PT 18.80 H INR 1.52 H APTT 33.5 Microbiology 05/23/23 09:00 Urine Culture - Final Urine,Clean Catch 05/23/23 21:20 Stool Lactoferrin - Final Stool Occult Blood (FIT) - Final Cardiac Studies: 2 Echocardiogram 03/26/23 Sestamibi Stress Test (Cardiology) 10/01
[2023-05-25] MEDS: sodium chloride 0.9% 1,000 ML 30 ML IV ×3 (07:01→15:52)
--- NOTE | 2023-05-25 07:40 | P.MISC_ITS ---
Miscellaneous Note Purpose of Documentation: Update on patient care Note: Diagnostic sigmoidoscopy done this morning, no evidence of blood vessels of GI bleeding to the level of the proximal sigmoid colon. We were unable to transverse the proximal simple colon due to colonic spasm and redundancy. At the level of the anal rectal GI region there is significant hemorrhoids on retroflexion there is evidence of erosion of 1 of these hemorrhoids which most likely is the source of bleeding. -Will recommend to hold anticoagulation for at least 4 to 6 weeks to allow for healing and prevent further bleeding -Continue stool softeners (docusate, Arturo aLAX) to prevent constipation. -Independent of recurrent GI bleeding an d continues downtrending of the hemoglobin recommendation will be to transfer for evaluation by gastroenterology team as patient may require repeat colonoscopy.
--- NOTE | 2023-05-25 08:00 | FL_ITS ---
WS: [id number] Modified barium swallow, 05/25/2023 Clinical Data: Oropharyngeal dysphagia Comparison: None. Fluoroscopy time: 1min [id number] # of spot films: Findings: The patient had difficulty in swallowing. There was a mild oral residue but it did clear with swallow ing. There is decreased pharyngeal peristalsis which eventually improved. There is aspiration with th in liquids. Impression: 1. Poor oral and pharyngeal peristalsis. 2. Aspiration with thin liquids.
--- NOTE | 2023-05-25 08:15 | ANE.PACU2 ---
Inpatient post-anesthesia follow up: Airway intact: Yes Vital signs: Temperature 98.4 F Pulse Rate 80 Respiratory Rate 16 Blood Pressure 141/58 Pulse Oximetry 100 Oxygen Delivery Me thod Nasal Cannula Oxygen Flow Rate 2 Fraction of Inspir ed Oxygen Hydration adequate: Yes Nausea and vomiting: No Pain level: 2 Mental status: Baseline
--- NOTE | 2023-05-25 08:51 | PC.CHAP ---
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 corridor redevelopment manager visit [] Patient/Family/Request visit [] Outpatient visit [] Follow-up visit [] Physician referral [] Code/Alert [] Routine visit [] Staff referral [] Actively dying [] Patient sleeping [] Family support [] [] Out of room [] Palliative care [] [] Receiving care in room [] Pre-surgical visit [] Trauma [] Long length of stay [] ICU visit [x] Other:Covid. No visit Relational/Emotional Strength [] Patient feels connected with others/family/visitors/staff [] Distress [] Loneliness/isolation [] Abandonment Spirituality of Patient [] Person of Sujatha [] Attends Christianity of their Sujatha [] Believes in Prayer [] Reads Bible or Jainism materials [] There are Spiritual issues to be addressed Leasing Coordinator Interventions [] Prayer [] Active listening [] Non-anxious presence [] Spiritual/emotional support [] Crisis/trauma care [] Spiritual counseling [] Bereavement support [] Provided bereavement packet [] Provided Bible/devotional materials [] Provided toy/stuffed animal, coloring book to patient or family member [] Provided Communion [] Anointing/[place] [] Salvation [] Completed spiritual assessment [] Other: Impact on Illness or Injury [] Angry [] Fearful [] Anxious [] Often cries [] Exhaustion [] Unable to work [] Unable to attend congregational [] Unable to walk/stand [] Unable to read [] Unable to drive [] Unable to eat/drink [] Unable to sleep [] Unable to be with family [] Patient intubated [] Other: Summary Time spent with patient
[2023-05-25] MEDS: gabapentin 300 mg Capsule PO (11:01)
[2023-05-25] MEDS: sertraline 50 mg Tablet 25 MG PO (11:02)
[2023-05-25 13:26] LABS: Eosinophils # 0.1 10^3/uL (0.0-0.8); Eosinophils % 1.4 %; Hematocrit 30.1 % (36-47); Lymphocytes # 0.9 10^3/uL (0.8-4.8); Lymphocytes % 16.2 %; Mean Corpuscular HGB Conc 30.2 g/dL (30-55); Mean Corpuscular Hemoglobin 31.6 pg (27-33); Mean Corpuscular Volume 104.5 fl (85-98); Mean Platelet Volume 10.9 fL (7.4-10.4); Monocytes # 0.5 10^3/uL (0.2-0.9); Monocytes % 8.4 %; Neutrophils # 4.13 10^3/uL (1.8-7.7); Neutrophils % 73.6 %; Nucleated Red Blood Cells % 0 %; Platelet Count 73 10^3/cmm (157-399); Red Blood Count 2.88 10^6/uL (3.85-5.65); Red Cell Distribution Width 17.3 % (12.1-15.1); White Blood Count 5.61 10^3/uL (3.29-11.43)
--- NOTE | 2023-05-25 14:02 | PM.DCS ---
Discharge Providers Date of Admission: 05/23/23 10:54 Date of Discharge: May 25, 2023 Attending Provider at Admission: Ruddy Hernandez MD Attending Provider at Discharge: Quiana Greene MD Primary Care Provider: Sudheer Wood MD Diagnoses at Discharge Discharge Diagnosis (1) Bright red blood per rectum: Status: Acute (2) Anemia: Status: Acute (3) Thrombocytopenia: Status: Acute (4) CAD in [place] artery: Status: Acute (5) Leukopenia: Status: Acute (6) Cirrhosis: Status: Acute Reason for Visit Reason for Visit: ABD PAIN Brief History: History taken over the phone from the nursing staff of the [facility]. Daksha Machuca is a 83 year old female with past medical history of CAD post PCI, cirrhosis, dysphagia, CVA, hypothyroidism, type 2 diabetes mellitus, [facility] resident who was recently in hospital and discharged on May 19 for bright blood per rectum when she required 2 units of blood transfusion. On previous discharge both aspirin and Plavix were withheld. She was to follow-up as an outpatient with surgical team for colonoscopy versus anoscopy. She was sent back to the ER today from the [facility] because of recurrent rectal bleed which again started overnight as per the nursing staff. As per nursing staff patient usually is AOx3 to four but since coming back from the hospital patient has had some sort of confusion. Examination patient is awake and alert, she is alert for being herself, being in the hospital. She states she is in the hospital because of cough and some difficulty in breathing along with lower abdominal pain. She states she has been having soft bowel movements with last bowel movement last night. Discharge Data Studies Completed and Pending Completed Studies During Hospitalization Category Date Time Status CT abdomen pelvis w con* [id number] Stat Cat Scan 05/23/23 08:[address] chest wo con [id number] Urgent Cat Scan 05/23/23 12:48 Completed Pending at discharge Category Date Time Status FL barium swallow modifd [id number] Routine Exams 05/25/23 08:00 Taken Blood Cultures ([facility]) Routine Lab 05/23/23 11:47 Received Blood Cultures ([facility]) Routine Lab 05/23/23 11:50 Received CBC Auto Diff [Complete Blood Count w/Auto] Q12H Lab 05/26/23 01:14 Ordered CBC Auto Diff [Complete Blood Count w/Auto] Q12H Lab 05/26/23 13:14 Ordered CBC Auto Diff [Complete Blood Count w/Auto] Q12H Lab 05/27/23 01:14 Ordered Leukocyte Reduced RBC Routine Lab 05/24/23 13:13 Results OVA and Parasites, Conc and PE Routine Lab 05/23/23 21:20 Received Salmonella / Shigella / Campy Routine Lab 05/23/23 21:20 Received Type and Screen Routine Lab 05/24/23 13:13 Results Radiology Impressions Abdomen/Pelvis CT 05/23/23 08:55 IMPRESSION: 1. Ppsyw-mh-hnhxugel bilateral pleural effusions kses-gykpixv-kfju-right. 2. Marked dilatation of the common bile duct measuring up to 1.3 centimeters. 3. Cirrhosis with splenorenal shunting, varices with associated splenomegaly. 4. Low volume ascites. 5. Anasarca. 6. Partially visualized left ischioanal fossa hyperdensity with central low attenuation, which may represent a developing abscess or phlegmon changes. Clinical correlation is recommended. Chest CT 05/23/23 12:48 IMPRESSION: 1. Mild bilateral pleural effusions uvyr-iuqigok-yfce-right. 2. Bibasilar lower lobe consolidations ldjs-sbkkidd-trwb-right lower with air bronchograms. There is also distal opacification of the lower bronchi. Findings suspicious for aspiration pneumonia versus compressive atelectasis. Laboratory Results WBC 5.61 10^3/uL (3.29-11.43) 05/25/23 13:15 RBC 2.88 10^6/uL (3.85-5.65) L 05/25/23 13:15 Hgb 9.10 g/dL (11.27-16.99) L 05/25/23 13:15 Hct 30.1 % (36-47) L 05/25/23 13:15 MCV 104.5 fl (85-98) H 05/25/23 13:15 MCH 31.6 pg (27-33) 05/25/23 13:15 MCHC 30.2 g/dL (30-55) 05/25/23 13:15 RDW 17.3 % (12.1-15.1) H 05/25/23 13:15 Plt Count 73 10^3/cmm (157-399) L D 05/25/23 13:15 MPV 10.9 fL (7.4-10.4) H 05/25/23 13:15 Neut % (Auto) 73.6 % 05/25/23 13:15 Lymph % (Auto) 16.2 % 05/25/23 13:15 [place] % (Auto) 8.4 % 05/25/23 13:15 Eos % (Auto) 1.4 % 05/25/23 13:15 Baso % (Auto) 0.0 % 05/25/23 13:15 Neut # (Auto) 4.13 10^3/uL (1.8-7.7) 05/25/23 13:15 Lymph # (Auto) 0.9 10^3/uL (0.8-4.8) 05/25/23 13:15 [place] # (Auto) 0.5 10^3/uL (0.2-0.9) 05/25/23 13:15 Eos # (Auto) 0.1 10^3/uL (0.0-0.8) 05/25/23 13:15 Baso # (Auto) 0.0 10^3/uL (0.0-0.1) 05/25/23 13:15 Nucleated RBC % (auto) 0 % 05/25/23 13:15 Nucleated RBCs # 0.0 /100WBC 05/25/23 13:15 PT 18.80 SECONDS (12.1-14.9) H 05/23/23 08:38 INR 1.52 (0.8-1.2) H 05/23/23 08:38 APTT 33.5 SECONDS (23.9-36.7) 05/23/23 08:38 Sodium 140 mmol/L (136-145) 05/25/23 01:20 Potassium 3.6 mmol/L (3.5-5.1) 05/25/23 01:20 Chloride 109 mmol/L (98-107) H 05/25/23 01:20 Carbon Dioxide 23 mmol/L (22-29) 05/25/23 01:20 Anion Gap 11.6 (5-19) 05/25/23 01:20 BUN 13 mg/dL (8-23) 05/25/23 01:20 Creatinine 0.6 mg/dL (0.5-0.9) 05/25/23 01:20 GFR Calculation Not Reportable 05/25/23 01:20 Glucose 110 mg/dL (65-115) 05/25/23 01:20 Estimat Average Glucose 80 05/24/23 02:04 Hemoglobin A1c 4.4 % (4.0-6.0) 05/24/23 02:04 Calculated Osmolality 291 mOsm/kg (285-295) 05/25/23 01:20 Calcium 7.9 mg/dL (8.5-10.5) L 05/25/23 01:20 Phosphorus 2.1 mg/dL (2.5-4.5) L 05/24/23 02:04 Magnesium 1.7 mg/dL (1.7-2.3) 05/24/23 02:04 Total Bilirubin 0.6 mg/dL (0.15-1.2) 05/24/23 02:04 AST 26 U/L (0-32) 05/24/23 02:04 ALT 11 U/L (0-33) 05/24/23 02:04 Alkaline Phosphatase 86 U/L (35-105) 05/24/23 02:04 Ammonia 20 umol/L (11-51) 05/23/23 14:32 Total Protein 5.5 g/dL (6.6-8.7) L 05/24/23 02:04 Albumin 2.3 g/dL (3.5-5.2) L 05/24/23 02:04 Globulin 3.2 g/dL (1.3-4.6) 05/24/23 02:04 Triglycerides 54 mg/dL (0-150) 05/24/23 02:04 Cholesterol 119 mg/dL (0-200) 05/24/23 02:04 LDL Cholesterol, Calc 79 mg/dL (50-129) 05/24/23 02:04 HDL Cholesterol 29 mg/dL (60-100) L 05/24/23 02:04 LDL/HDL Ratio 2.72 RATIO (0.00-3.22) 05/24/23 02:04 Cholesterol/HDL Ratio 4.10 mg/dL (0.0-4.40) 05/24/23 02:04 Vitamin B12 1138 pg/mL (232-1245) 05/23/23 08:38 Folate > 20.0 ng/mL (4.8-37.3) 05/24/23 02:04 TSH 2.02 uIU/mL (0.27-4.20) 05/23/23 08:38 Urine Color [place] (Yellow) A 05/23/23 09:00 Urine Appearance Cloudy (CLEAR) A 05/23/23 09:00 Urine pH TNP 05/23/23 09:00 Ur Specific [place] TNP 05/23/23 09:00 Urine Protein TNP 05/23/23 09:00 Urine Glucose (UA) TNP 05/23/23 09:00 Urine Ketones TNP 05/23/23 09:00 Urine Blood TNP 05/23/23 09:00 Urine Nitrate TNP 05/23/23 09:00 Urine Bilirubin TNP 05/23/23 09:00 Urine Urobilinogen TNP 05/23/23 09:00 Ur Leukocyte Esterase TNP 05/23/23 09:00 Urine RBC 15-25 /hpf (0-2) H 05/23/23 09:00 Urine WBC 25-40 /hpf (0-5) H 05/23/23 09:00 Ur Squamous Epith Cells 5-10 /hpf (0-5) H 05/23/23 09:00 Ur Transition Epith Cell 0-4 /hpf 05/23/23 09:00 Calcium Oxalate Crystal 5-10 /hpf H 05/23/23 09:00 Amorphous Sediment Not Reportable 05/23/23 09:00 Urine Bacteria 1+ /hpf (NONE) H 05/23/23 09:00 Urine Yeast 1+ /hpf H 05/23/23 09:00 Nasal Influ A H1 2008 PCR Not detected (NOT DETECT) 05/23/23 13:28 Adenovirus (PCR) Not detected (NOT DETECT) 05/23/23 13:28 C. pneumoniae DNA (PCR) Not detected (NOT DETECT) 05/23/23 13:28 C. difficile Tox (PCR) TNP 05/23/23 21:20 Coronavirus 229E (PCR) Not detected (NOT DETECT) 05/23/23 13:28 Human Metapneumovir PCR Not detected (NOT DETECT) 05/23/23 13:28 Influenza A (H1) PCR Not detected (NOT DETECT) 05/23/23 13:28 Influenza A (H3) PCR Not detected (NOT DETECT) 05/23/23 13:28 Influenza Type A (PCR) Not detected (NOT DETECT) 05/23/23 13:28 Influenza Type B (PCR) Not detected (NOT DETECT) 05/23/23 13:28 M. pneumoniae (PCR) Not detected (NOT DETECT) 05/23/23 13:28 Parainfluenza 1 (PCR) Not detected (NOT DETECT) 05/23/23 13:28 Parainfluenza 2 (PCR) Not detected (NOT DETECT) 05/23/23 13:28 Parainfluenza 3 (PCR) Not detected (NOT DETECT) 05/23/23 13:28 Parainfluenza 4 (PCR) Not detected (NOT DETECT) 05/23/23 13:28 RSV Type A (PCR) Not detected (NOT DETECT) 05/23/23 13:28 RSV Type B (PCR) Not detected (NOT DETECT) 05/23/23 13:28 Entero/Rhino (PCR) Not detected (NOT DETECT) 05/23/23 13:28 SARS-CoV-2 (PCR) Detected (NOT DETECT) A 05/23/23 13:28 Blood Type O Positive 05/23/23 08:38 Rho(D) Type Rh positive 05/23/23 08:38 Antibody Screen Negative 05/23/23 08:38 Crossmatch See Detail 05/23/23 08:38 Vitals Last Vital Signs Temp 97.6 F 05/25/23 13:45 Pulse 76 05/25/23 13:53 Resp 16 05/25/23 13:53 BP 120/74 05/25/23 13:45 Pulse Ox 99 05/25/23 13:53 O2 Del Method Nasal Cannula 05/25/23 13:53 O2 Flow Rate 2 05/25/23 13:53 Discharge Plan Discharge Patient Disposition: Home Condition: Stable Prescriptions: No Action magnesium hydroxide [Milk of Magnesia] 400 mg/5 mL suspension 30 ml PO Q24H PRN (Reason: Constipation) fluticasone propionate 50 mcg/actuation spray,suspension 1 spray intranasal BID@, sertraline 25 mg tablet 25 mg PO DAILY@07 polyethylene glycol 3350 [Miralax] 17 gram/dose powder 17 gm PO Q2D Rx Instructions: hold for loose stools solifenacin [Vesicare] 5 mg tablet 5 mg PO DAILY Qty: 30 12RF bisacodyl 10 mg Suppository 10 mg DE DAILY PRN (Reason: Constipation) aspirin 81 mg Tablet,Delayed Release (Dr/Ec) 81 mg PO DAILY 30 Days Qty: 30 3RF Hold Instructions: Resume on 06/21/23. hold until you see general surgery clopidogrel [Plavix] 75 mg tablet 75 mg PO DAILY 30 Days Qty: 30 3RF Hold Instructions: Resume on 06/30/23. hold until you see general surgery potassium chloride [Klor-Con M20] 20 mEq tablet,ER particles/crystals 20 meq PO DAILY Qty: 30 0RF furosemide 40 mg tablet 40 mg PO DAILY acetaminophen 325 mg Tablet 650 mg PO Q4H PRN (Reason: Pain) gabapentin 300 mg capsule 300 mg PO BID loperamide [Imodium A-D] 2 mg Tablet 2 mg PO Q6H PRN (Reason: Diarrhea) famotidine 20 mg tablet 20 mg PO BID morphine 20 mg/5 mL (4 mg/mL) Solution See Rx Instructions .ROUTE .COMPLEX PRN (Reason: Pain) Rx Instructions: 0.25 ml orally as needed for pain every 2 hours nitroglycerin [Nitrostat] 0.4 mg Tablet, Sublingual 0.4 mg SUBLINGUAL Q5M PRN (Reason: Chest Pain) Rx Instructions: do not exceed 3 doses per episode cocoa butter-shark liver oil Suppository 1 supp DE DAILY PRN (Reason: Hemorrhoids) calcium carbonate 500 mg calcium (1,250 mg) Tablet,Chewable 500 mg PO BID Eucerin Cream 1 applic TOPICAL DAILY PRN (Reason: Dry Skin) nystatin 100,000 unit/gram Powder 1 applic TOPICAL BID MDD redness carboxymethylcellulose sodium 1 % Drops, Liquid Gel 1 drp OPHTHALMIC (EYE) TID PRN (Reason: Dry Eyes) calcium polycarbophil [Fiber-Lax] 625 mg tablet 625 mg PO DAILY 30 Days Qty: 30 0RF multivitamin Tablet 1 tab PO DAILY@07 gabapentin 600 mg Tablet 600 mg PO DAILY ondansetron HCl 4 mg Tablet 4 mg PO Q4H PRN (Reason: Nausea And Vomiting) sennosides-docusate sodium [Stool Softener-Laxative] 8.6-50 mg Tablet 2 tab PO BID@08,20 Vcejd-Zt-Wxa Enema 19-7 gram/118 mL Enema 118 ml DE DAILY PRN (Reason: Constipation) albuterol sulfate 2.5 mg /3 mL (0.083 %) solution for nebulization 2.5 mg inhalation Q4H PRN (Reason: broncho pneumonia) Pyridium 200 mg Tablet 200 mg PO TID linezolid 600 mg tablet 600 mg PO BID doxycycline hyclate 100 mg tablet 100 mg PO BID A and D Ointment See Rx Instructions .ROUTE .COMPLEX Rx Instructions: APPLY TO FEET AND LEGS BL DAILY AT BEDTIME WITH SOCKS. Magtab 84 mg Tablet Extended Release 84 mg PO DAILY pantoprazole 40 mg tablet,delayed release (DR/EC) 40 mg PO DAILY Referrals: [facility] [Outside] Sudheer Wood MD [Primary Care Provider] - Patient Instructions: GI Discharge Instructions, Opioid Safety Discharge Attestations Status at Discharge: Cognitive status at discharge: cognitively intact, Behavioral status at discharge: cooperative, Coding Level of Care Code Acute Code for Chg Fwd Diagnoses Bright red blood per rectum K62.5 Anemia D64.9 Thrombocytopenia D69.6 CAD in [place] artery I25.10 Leukopenia D72.819 Cirrhosis K74.60
[2023-05-25] MEDS: cefTRIAXone 1,000 MG in sodium chloride 0.9% (plus) 50 ML 100 MG IV (15:51)
[2023-05-25] MEDS: dexamethasone 10 mg/mL INJ 6 MG IVP (16:02)
--- NOTE | 2023-05-25 16:18 | P.PN_ITS ---
Subjective 2 Subjective: Labs pending today. Patient returned from colonoscopy. She is still somewhat confused secondary to sedation. Vitals/I&O/Wt Last Vital Signs Temp 97.6 F 05/25/23 13:45 Pulse 76 05/25/23 13:53 Resp 16 05/25/23 13:53 BP 120/74 05/25/23 13:45 Pulse Ox 99 05/25/23 13:53 O2 Del Method Nasal Cannula 05/25/23 13:53 O2 Flow Rate 2 05/25/23 13:53 05/25/23 05/25/23 05/25/23 06:59 14:59 22:59 Intake Total 240 / 2803.333 556.667 / 556.667 144.5 / 701.167 Balance 240 / 2803.333 556.667 / 556.667 144.5 / 701.167 Weight last 48 hrs Weight 75.432 kg Weight 74.525 kg Weight 74.571 kg Physical Exam 2 Narrative: General: No acute distress, AO x 2, on 2 L oxygen supplementation HEENT: PERRLA, pupils bilaterally equal and reactive Chest: Normal vesicular breath sounds, no added sounds, equal good air entry bilaterally CVS: S1-S2 regular, no murmurs, no tachycardia, no gallops, no rubs Abdomen: Soft,, bowel sounds sluggish, nontender Neuro: No focal deficits. Data 05/25/23 13:15 05/25/23 01:20 A&P Assessment and plan (1) Bright red blood per rectum: Recurrent episodes. No diverticulitis on CT abdomen pelvis done. Will consult surgery for colonoscopy. Plan for colonoscopy for now on Wednesday. Full liquid diet with possible bowel regimen tomorrow. Start on stool softener with milk of magnesia and senna Colace twice daily. Monitor hemoglobin daily for now. Hemoglobin 9.1 this morning. Pancytopenia: Most likely secondary to liver disease versus COVID-19? We will continue to monitor. Patient did not have to have blood transfusion yesterday after it was ordered I had canceled it. Hemoglobin stable and went up to 9.1 therefore blood was not given. Patient did receive IV antibiotics for bacteremia till April 08. Has mild leukopenia. Cannot rule out C. difficile. Check stool studies. Protonix IV twice daily. (2) Anemia: Baseline hemoglobin seems to be running at 8.7-9.4. Today 9.1.. Target hemoglobin more than 8. Will transfuse if needed. Appreciate recent iron panel, check vitamin B12 and folate levels. (3) Thrombocytopenia: Chronic most likely in setting of liver cirrhosis. Monitor daily. (4) CAD in [place] artery: No active chest pain. Aspirin and Plavix for now on hold given bleeding per rectum. Check A1c, lipid panel. (5) Leukopenia: Could be in setting of liver cirrhosis but seems more acute. No neutropenia. Check respiratory viral panel. Monitor daily for now. (6) Cirrhosis: Plan Shortness of breath: Subjective. Keep oxygen saturation over 90%. Check CT chest without contrast. Adding respiratory viral panel as above. Hypertension: Goal blood pressure less than 140/90 mmHg. Monitor and start antihypertensives accordingly. Altered mental status: Patient seems to be at baseline mentation. Continue to monitor. Check ammonia levels. Modified barium swallow shows aspiration with thin liquids. Diet has been changed accordingly Pneumonia most likely secondary to aspiration at this point. Continue patient on ceftriaxone and azithromycin. Unable to get a hold of patient's son over the phone. Talk with her stepdaughter Liset who is listed on file however is not a DPOA. She only had concerns that patient was discharged and came right back to the hospital with another bleed. I explained to her that patient needs to be seen by colorectal surgery and gastroenterology and both services not available at our hospital. She also states that she was not informed about the pneumonia and the fact that the patient has COVID. I answered all her questions to her satisfaction. Plan going forward we will attempt to see if we can transfer patient to higher level of care for GI and colorectal surgery as she does have erosive hemorrhoids and colonoscopy could not be performed. I had a discussion with the surgeon and patient may need repeat colonoscopy. CODE STATUS: [facility]. Patient is DNR/DNI. Full liquid diet Protonix every 12 hourly will suffice as PUD prophylaxis SCDs for DVT prophylaxis. Attestations 2 Medical Necessity Statement*: Requires inpatient stay for monitoring of hemoglobin levels and possible rebleed. May require transfer to higher level of care. Diagnoses Bright red blood per rectum K62.5 Anemia D64.9 Thrombocytopenia D69.6 CAD in [place] artery I25.10 Leukopenia D72.819 Cirrhosis K74.60
[2023-05-25] MEDS: azithromycin 500 MG in sodium chloride 0.9% 250 ML 250 MG IV (16:50)
[2023-05-25] MEDS: gabapentin 300 mg Capsule 600 MG PO (18:03)
[2023-05-25] MEDS: remdesivir 100 MG in sodium chloride 0.9% (100 ml) 80 ML IV (18:06)
[2023-05-26] VITALS (14 sets, daily range): BP systolic 113–134; BP diastolic 56–78; PULSE 75–95; RESP 16–20; TEMP 36.4–36.8; O2SAT 94–99; BMI 38.3
[2023-05-26] MEDS: ipratropium-albuterol 3 mL Neb INHALATION ×4 (03:28→20:29)
[2023-05-26] MEDS: acetaminophen 325 mg Tablet 650 MG PO ×2 (06:11→23:26)
[2023-05-26 06:17] LABS: Hematocrit 26.4 % (36-47); Lymphocytes # 0.3 10^3/uL (0.8-4.8); Lymphocytes % 13.7 %; Mean Corpuscular HGB Conc 30.3 g/dL (30-55); Mean Corpuscular Hemoglobin 31.6 pg (27-33); Mean Corpuscular Volume 104.3 fl (85-98); Mean Platelet Volume 10.6 fL (7.4-10.4); Monocytes # 0.2 10^3/uL (0.2-0.9); Monocytes % 8.7 %; Neutrophils # 1.86 10^3/uL (1.8-7.7); Neutrophils % 77.2 %; Nucleated Red Blood Cells % 0 %; Platelet Count 38 10^3/cmm (157-399); Red Blood Count 2.53 10^6/uL (3.85-5.65); Red Cell Distribution Width 17.2 % (12.1-15.1); White Blood Count 2.41 10^3/uL (3.29-11.43)
[2023-05-26 06:44] LABS: Anion Gap 10.8 (5-19); Blood Urea Nitrogen 16 mg/dL (8-23); Calcium 7.8 mg/dL (8.5-10.5); Carbon Dioxide 26 mmol/L (22-29); Chloride 110 mmol/L (98-107); Glucose 95 mg/dL (65-115); Osmolality Calculated 297 mOsm/kg (285-295); Potassium 3.8 mmol/L (3.5-5.1); Sodium 143 mmol/L (136-145)
[2023-05-26] MEDS: budesonide 0.5 mg/2 mL Neb INHALATION ×2 (08:04→20:29)
--- NOTE | 2023-05-26 08:15 | P.TS_ITS ---
Transfer Summary Providers Date of Admission: 05/23/23 10:54 Date of Discharge/Transfer: 05/26/23 Attending Provider at Admission: Ruddy Hernandez MD Attending Provider at Transfer: Quiana Greene MD Primary Care Provider: Sudheer Wood MD Transfer Plans: Anticipated date of transfer: 05/26/23 . Receiving Facility: [facility] . Receiving Provider: Dr. Parker . Diagnoses at Discharge Discharge Diagnosis (1) Bright red blood per rectum: Status: Acute (2) Anemia: Status: Acute (3) Thrombocytopenia: Status: Acute (4) CAD in [place] artery: Status: Acute (5) Leukopenia: Status: Acute (6) Cirrhosis: Status: Acute Reason for Visit Reason for Visit ABD PAIN Brief History: As per Dr. Slaughter History taken over the phone from the nursing staff of the intermediate. Daksha Machuca is a 83 year old female with past medical history of CAD post PCI, cirrhosis, dysphagia, CVA, hypothyroidism, type 2 diabetes mellitus, intermediate resident who was recently in hospital and discharged on May 19 for bright blood per rectum when she required 2 units of blood transfusion. On previous discharge both aspirin and Plavix were withheld. She was to follow-up as an outpatient with surgical team for colonoscopy versus anoscopy. She was sent back to the ER today from the intermediate because of recurrent rectal bleed which again started overnight as per the nursing staff. As per nursing staff patient usually is AOx3 to four but since coming back from the hospital patient has had some sort of confusion. Examination patient is awake and alert, she is alert for being herself, being in the hospital. She states she is in the hospital because of cough and some difficulty in breathing along with lower abdominal pain. She states she has been having soft bowel movements with last bowel movement last night. Hospital Course Hospital Course Previous DC Summary Patient is a 83-year-old female with past medical history of CAD, cirrhosis, dysphagia, CVA, PCI, NSTEMI, hypothyroidism, diabetes presents the emergency room with bloody stools. Patient will be admitted to the hospital for further medical management of GI bleed. Patient states that she has noticed in the past 2 to 3 days that she has had blood in her stools. Patient resides at a half-way facility and notified staff early this are morning about bloody stools. Patient was transported to [facility] ER via EMS. She does report abdominal pain to bilateral lower quadrants. She denies any vomiting blood or urinating blood. She denies any chest discomfort, nausea, vomiting, fever, chills or dyspnea. She denies any alleviating or aggravating factors at this time. Reports abdominal pain 5/10 on pain scale. While in the emergency room, laboratory studies and radiology imaging were performed. 1 unit RBCs ordered and started. Patient was admitted to [facility] for GI bleed, CT scan abdomen pelvis showed sigmoid diverticula, with liver cirrhosis history, her antiplatelet therapy was held, she was monitored during her hospitalization, she required 2 units PRBC, Protonix, Carafate, initially I think her GI bleed was likely likely secondary to a slow diverticular bleed, which has resolved, however she continued to have stools with blood around it, blood with bearing down, I actually observed the stools, there is no blood inside the stool but more around the stool, at times scant blood with wiping, likely secondary to hemorrhoidal bleeding, she was monitored for another 48 hours, general surgery was consulted, agree that likely the persistent bleeding is likely from hemorrhoids. Overall hemoglobin has been stable, bloody stools have resolved, she will be discharged on a GI soft diet, stool softeners, sitz bath's, with a follow-up with general surgery as outpatient for consideration of hemorrhoidectomy. I advised intermediate to monitor for bloody or black stools, monitor hemoglobin in 48 hours. In terms of her antiplatelet therapy on aspirin and Plavix for CAD, we discussed risks and benefits of holding anticoagulation, risk including but not limited to cardiovascular events, benefits decrease risk of GI bleed, hemorrhoidal bleed, after discussing the risk and benefits of all options, shared decision making she voiced understanding, all questions answered for now we will hold anticoagulation and antiplatelet therapy for at least a month,. Decision when to resume antiplatelet therapy will be based on shared decision making with primary care, general surgery and patient's overall hemoglobin trend, and clinical course in the next few weeks. This current admission hospital course: Patient again presented for a complaint of bright red blood per rectum. She is having recurrent rectal bleeding at intermediate and therefore has been readmitted. During current hospital stay general surgery was consulted for a colonoscopy. Which was attempted on 05/25/2023. Report as follows: no evidence of blood vessels of GI bleeding to the level of the proximal sigmoid colon. We were unable to transverse the proximal simple colon due to colonic spasm and redundancy. At the level of the anal rectal GI region there is significant hemorrhoids on retroflexion there is evidence of erosion of 1 of these hemorrhoids which most likely is the source of bleeding. -Will recommend to hold anticoagulation for at least 4 to 6 weeks to allow for healing and prevent further bleeding -Continue stool softeners (docusate, MiraLAX) to prevent constipation. -Independent of recurrent GI bleeding and continues downtrending of the hemoglobin recommendation will be to transfer for evaluation by gastroenterology team as patient may require repeat colonoscopy. However patient continues to have bright red blood per rectum. She had another large BM with blood. Hemoglobin has dropped again. Talk with patient's daughter. Discussed transferring patient to higher level of care for GI and possibly colorectal surgery. Daughter and son consented to transfer. Discussed case with hospitalist team at [facility] who accepted the patient for transfer at this time. Will continue to check CBC every 12 hours and transfuse as needed. Goal hemoglobin above 8. Patient is hemodynamically stable at this time. Physical Exam Narrative: General: No acute distress, AO x 2, on 2 L oxygen supplementation HEENT: PERRLA, pupils bilaterally equal and reactive Chest: Normal vesicular breath sounds, no added sounds, equal good air entry bilaterally CVS: S1-S2 regular, no murmurs, no tachycardia, no gallops, no rubs Abdomen: Soft,, bowel sounds sluggish, nontender Neuro: No focal deficits. TS Data Studies Completed and Pending Pending at discharge Category Date Time Status Blood Cultures ([facility]) Routine Lab 05/23/23 11:47 Received Blood Cultures ([facility]) Routine Lab 05/23/23 11:50 Received Leukocyte Reduced RBC Routine Lab 05/24/23 13:13 Results OVA and Parasites, Conc and PE Routine Lab 05/23/23 21:20 Received Salmonella / Shigella / Campy Routine Lab 05/23/23 21:20 Received Type and Screen Routine Lab 05/24/23 13:13 Results Completed Studies During Hospitalization Category Date Time Status CT abdomen pelvis w con* [id number] Stat Cat Scan 05/23/23 08:[address] chest wo con [id number] Urgent Cat Scan 05/23/23 12:48 Completed FL barium swallow modifd [id number] Routine Exams 05/25/23 08:00 Completed Laboratory Last Values WBC 2.41 10^3/uL (3.29-11.43) L 05/26/23 05:58 RBC 2.53 10^6/uL (3.85-5.65) L 05/26/23 05:58 Hgb 8.00 g/dL (11.27-16.99) L 05/26/23 05:58 Hct 26.4 % (36-47) L 05/26/23 05:58 MCV 104.3 fl (85-98) H 05/26/23 05:58 MCH 31.6 pg (27-33) 05/26/23 05:58 MCHC 30.3 g/dL (30-55) 05/26/23 05:58 RDW 17.2 % (12.1-15.1) H 05/26/23 05:58 Plt Count 38 10^3/cmm (157-399) L D 05/26/23 05:58 MPV 10.6 fL (7.4-10.4) H 05/26/23 05:58 Neut % (Auto) 77.2 % 05/26/23 05:58 Lymph % (Auto) 13.7 % 05/26/23 05:58 Kim[place] % (Auto) 8.7 % 05/26/23 05:58 Eos % (Auto) 0.0 % 05/26/23 05:58 Baso % (Auto) 0.0 % 05/26/23 05:58 Neut # (Auto) 1.86 10^3/uL (1.8-7.7) 05/26/23 05:58 Lymph # (Auto) 0.3 10^3/uL (0.8-4.8) L 05/26/23 05:58 Kimble # (Auto) 0.2 10^3/uL (0.2-0.9) 05/26/23 05:58 Eos # (Auto) 0.0 10^3/uL (0.0-0.8) 05/26/23 05:58 Baso # (Auto) 0.0 10^3/uL (0.0-0.1) 05/26/23 05:58 Nucleated RBC % (auto) 0 % 05/26/23 05:58 Nucleated RBCs # 0.0 /100WBC 05/26/23 05:58 PT 18.80 SECONDS (12.1-14.9) H 05/23/23 08:38 INR 1.52 (0.8-1.2) H 05/23/23 08:38 APTT 33.5 SECONDS (23.9-36.7) 05/23/23 08:38 Sodium 143 mmol/L (136-145) 05/26/23 05:58 Potassium 3.8 mmol/L (3.5-5.1) 05/26/23 05:58 Chloride 110 mmol/L (98-107) H 05/26/23 05:58 Carbon Dioxide 26 mmol/L (22-29) 05/26/23 05:58 Anion Gap 10.8 (5-19) 05/26/23 05:58 BUN 16 mg/dL (8-23) 05/26/23 05:58 Creatinine 0.6 mg/dL (0.5-0.9) 05/26/23 05:58 GFR Calculation Not Reportable 05/26/23 05:58 Glucose 95 mg/dL (65-115) 05/26/23 05:58 Estimat Average Glucose 80 05/24/23 02:04 Hemoglobin A1c 4.4 % (4.0-6.0) 05/24/23 02:04 Calculated Osmolality 297 mOsm/kg (285-295) H 05/26/23 05:58 Calcium 7.8 mg/dL (8.5-10.5) L 05/26/23 05:58 Phosphorus 2.1 mg/dL (2.5-4.5) L 05/24/23 02:04 Magnesium 2.0 mg/dL (1.7-2.3) 05/26/23 05:58 Total Bilirubin 0.6 mg/dL (0.15-1.2) 05/24/23 02:04 AST 26 U/L (0-32) 05/24/23 02:04 ALT 11 U/L (0-33) 05/24/23 02:04 Alkaline Phosphatase 86 U/L (35-105) 05/24/23 02:04 Ammonia 20 umol/L (11-51) 05/23/23 14:32 Total Protein 5.5 g/dL (6.6-8.7) L 05/24/23 02:04 Albumin 2.3 g/dL (3.5-5.2) L 05/24/23 02:04 Globulin 3.2 g/dL (1.3-4.6) 05/24/23 02:04 Triglycerides 54 mg/dL (0-150) 05/24/23 02:04 Cholesterol 119 mg/dL (0-200) 05/24/23 02:04 LDL Cholesterol, Calc 79 mg/dL (50-129) 05/24/23 02:04 HDL Cholesterol 29 mg/dL (60-100) L 05/24/23 02:04 LDL/HDL Ratio 2.72 RATIO (0.00-3.22) 05/24/23 02:04 Cholesterol/HDL Ratio 4.10 mg/dL (0.0-4.40) 05/24/23 02:04 Vitamin B12 1138 pg/mL (232-1245) 05/23/23 08:38 Folate > 20.0 ng/mL (4.8-37.3) 05/24/23 02:04 TSH 2.02 uIU/mL (0.27-4.20) 05/23/23 08:38 Urine Color [place] (Yellow) A 05/23/23 09:00 Urine Appearance Cloudy (CLEAR) A 05/23/23 09:00 Urine pH TNP 05/23/23 09:00 Ur Specific [place] TNP 05/23/23 09:00 Urine Protein TNP 05/23/23 09:00 Urine Glucose (UA) TNP 05/23/23 09:00 Urine Ketones TNP 05/23/23 09:00 Urine Blood TNP 05/23/23 09:00 Urine Nitrate TNP 05/23/23 09:00 Urine Bilirubin TNP 05/23/23 09:00 Urine Urobilinogen TNP 05/23/23 09:00 Ur Leukocyte Esterase TNP 05/23/23 09:00 Urine RBC 15-25 /hpf (0-2) H 05/23/23 09:00 Urine WBC 25-40 /hpf (0-5) H 05/23/23 09:00 Ur Squamous Epith Cells 5-10 /hpf (0-5) H 05/23/23 09:00 Ur Transition Epith Cell 0-4 /hpf 05/23/23 09:00 Calcium Oxalate Crystal 5-10 /hpf H 05/23/23 09:00 Amorphous Sediment Not Reportable 05/23/23 09:00 Urine Bacteria 1+ /hpf (NONE) H 05/23/23 09:00 Urine Yeast 1+ /hpf H 05/23/23 09:00 Nasal Influ A H1 2009 PCR Not detected (NOT DETECT) 05/23/23 13:28 Adenovirus (PCR) Not detected (NOT DETECT) 05/23/23 13:28 C. pneumoniae DNA (PCR) Not detected (NOT DETECT) 05/23/23 13:28 C. difficile Tox (PCR) TNP 05/23/23 21:20 Coronavirus 229E (PCR) Not detected (NOT DETECT) 05/23/23 13:28 Human Metapneumovir PCR Not detected (NOT DETECT) 05/23/23 13:28 Influenza A (H1) PCR Not detected (NOT DETECT) 05/23/23 13:28 Influenza A (H3) PCR Not detected (NOT DETECT) 05/23/23 13:28 Influenza Type A (PCR) Not detected (NOT DETECT) 05/23/23 13:28 Influenza Type B (PCR) Not detected (NOT DETECT) 05/23/23 13:28 M. pneumoniae (PCR) Not detected (NOT DETECT) 05/23/23 13:28 Parainfluenza 1 (PCR) Not detected (NOT DETECT) 05/23/23 13:28 Parainfluenza 2 (PCR) Not detected (NOT DETECT) 05/23/23 13:28 Parainfluenza 3 (PCR) Not detected (NOT DETECT) 05/23/23 13:28 Parainfluenza 4 (PCR) Not detected (NOT DETECT) 05/23/23 13:28 RSV Type A (PCR) Not detected (NOT DETECT) 05/23/23 13:28 RSV Type B (PCR) Not detected (NOT DETECT) 05/23/23 13:28 Entero/Rhino (PCR) Not detected (NOT DETECT) 05/23/23 13:28 SARS-CoV-2 (PCR) Detected (NOT DETECT) A 05/23/23 13:28 Blood Type O Positive 05/23/23 08:38 Rho(D) Type Rh positive 05/23/23 08:38 Antibody Screen Negative 05/23/23 08:38 Crossmatch See Detail 05/23/23 08:38 Radiology Impressions Abdomen/Pelvis CT 05/23/23 08:55 IMPRESSION: 1. Vyuly-zh-pstxkgwd bilateral pleural effusions opar-thgyswh-gops-right. 2. Marked dilatation of the common bile duct measuring up to 1.3 centimeters. 3. Cirrhosis with splenorenal shunting, varices with associated splenomegaly. 4. Low volume ascites. 5. Anasarca. 6. Partially visualized left ischioanal fossa hyperdensity with central low attenuation, which may represent a developing abscess or phlegmon changes. Clinical correlation is recommended. Chest CT 05/23/23 12:48 IMPRESSION: 1. Mild bilateral pleural effusions xlcu-eikfuiq-jibu-right. 2. Bibasilar lower lobe consolidations tzdq-otwiytl-xnsr-right lower with air bronchograms. There is also distal opacification of the lower bronchi. Findings suspicious for aspiration pneumonia versus compressive atelectasis. Recent Clincial Data Last Vital Signs Temp 98.2 F 05/26/23 07:50 Pulse 75 05/26/23 08:11 Resp 18 05/26/23 08:06 BP 113/56 05/26/23 07:50 Pulse Ox 96 05/26/23 08:06 O2 Del Method Nasal Cannula 05/26/23 08:06 O2 Flow Rate 2 05/26/23 08:06 Vital Signs Temp Pulse Resp BP Pulse Ox O2 Del Method O2 Flow Rate 05/26/23 08:11 75 05/26/23 08:06 84 18 96 Nasal Cannula 2 05/26/23 07:50 98.2 F 84 17 113/56 99 05/26/23 05:16 81 05/26/23 03:47 97.7 F 80 16 119/57 98 Nasal Cannula 2 05/26/23 03:28 81 17 98 Nasal Cannula 2 05/25/23 23:55 98.2 F 87 13 105/68 97 Nasal Cannula 05/25/23 21:54 80 Intake & Output/Weight 05/24/23 05/25/23 05/26/23 05/27/23 06:59 06:59 06:59 06:59 Intake Total 580 / 580 2803.333 / 2803.333 1461.167 / 1461.167 Balance 580 / 580 2803.333 / 2803.333 1461.167 / 1461.167 Weight 74.162 kg 74.525 kg 89.074 kg Vitals Last Vital Signs Temp 98.2 F 05/26/23 07:50 Pulse 75 05/26/23 08:11 Resp 18 05/26/23 08:06 BP 113/56 05/26/23 07:50 Pulse Ox 96 05/26/23 08:06 O2 Del Method Nasal Cannula 05/26/23 08:06 O2 Flow Rate 2 05/26/23 08:06 TS Medications Medications Acetaminophen (Acetaminophen 325 Mg Tablet) 650 mg PO Q6H PRN PRN Reason: Mild/Mod Pain Or Temp >/= 101 Last Admin: 05/26/23 06:11 Dose: 650 mg Albuterol/Ipratropium (Ipratropium-Albuterol 3 Ml Neb) 3 ml INHALATION Q6H.RESP [facility] Last Admin: 05/26/23 08:04 Dose: 3 ml Benzocaine (Cetylpyridinium Lozenge) 1 each MUCOUS MEM ONCE PRN PRN Reason: SORE THROAT Budesonide (Budesonide 0.5 Mg/2 Ml Neb) 0.5 mg INHALATION BID.RESPIRATORY [facility] Last Admin: 05/26/23 08:04 Dose: 0.5 mg Dexamethasone (Dexamethasone 10 Mg/Ml Inj) 6 mg IVP Q24H [facility] Last Admin: 05/25/23 16:02 Dose: 6 mg Fentanyl (Fentanyl 50 Mcg/Ml Inj 2ml) 50 mcg IVP ONCE PRN PRN Reason: Preop or postop pain Gabapentin (Gabapentin 300 Mg Capsule) 600 mg PO QPM [facility] Last Admin: 05/25/23 18:03 Dose: 600 mg Gabapentin (Gabapentin 300 Mg Capsule) 300 mg PO DAILY [facility] Last Admin: 05/25/23 11:01 Dose: 300 mg Hydromorphone HCl (Hydromorphone 1 Mg/Ml Inj 1 Ml) 0.5 mg IVP ONCE PRN PRN Reason: PAIN Sodium Chloride (Sodium Chloride 0.9%) 1,000 mls @ 30 mls/hr IV .Q24H [facility] Last Admin: 05/25/23 15:52 Dose: 30 mls/hr Remdesivir 100 mg/ Sodium (Chloride) 100 mls @ 100 mls/hr IV Q24H [facility] Stop: 05/27/23 16:59 Last Infusion: 05/25/23 19:28 Dose: Infused Ceftriaxone Sodium 1,000 mg/ (Sodium Chloride) 50 mls @ 100 mls/hr IV Q24H [facility]; Protocol Last Infusion: 05/25/23 17:19 Dose: Infused Azithromycin 500 mg/ Sodium (Chloride) 250 mls @ 250 mls/hr IV Q24H [facility]; Protocol Last Infusion: 05/25/23 18:08 Dose: Infused Lactulose (Lactulose Oral Liq 20 Gm/30 Ml Udc) 10 gm PO DAILY PRN; Protocol PRN Reason: Constipation (see protocol) Magnesium Hydroxide (Magnesium Hydroxide 30 Ml Udc) 30 ml PO DAILY [facility]; Protocol Last Admin: 05/25/23 11:02 Dose: Not Given Morphine Sulfate (Morphine 4 Mg/Ml Sdv 1 Ml) 2 mg IVP Q4H PRN PRN Reason: SEVERE PAIN Last Admin: 05/24/23 22:01 Dose: 2 mg Ondansetron HCl (Ondansetron 2 Mg/Ml Sdv 2 Ml) 4 mg IVP Q8H PRN PRN Reason: vomiting, or N/V if npo Last Admin: 05/24/23 22:01 Dose: 4 mg Ondansetron HCl (Ondansetron 2 Mg/Ml Sdv 2 Ml) 4 mg IVP ONCE PRN PRN Reason: NAUSEA AND VOMITING Ondansetron HCl (Ondansetron 2 Mg/Ml Sdv 2 Ml) 4 mg IVP Q15M PRN PRN Reason: Nausea/Vomiting PACU PHASE II Pantoprazole Sodium (Pantoprazole 40 Mg Sdv) 40 mg IVP Q12H [facility] Last Admin: 05/25/23 23:27 Dose: 40 mg Senna/Docusate Sodium (Sennosides-Docusate Tablet) 1 tab PO BID [facility] Last Admin: 05/25/23 18:04 Dose: Not Given Sertraline HCl (Sertraline 50 Mg Tablet) 25 mg PO DAILY [facility] Last Admin: 05/25/23 11:02 Dose: 25 mg Discontinued Medications Bisacodyl (Bisacodyl 5 Mg Tablet) 10 mg PO DAILY PRN; Protocol PRN Reason: Constipation (see protocol) Bisacodyl (Bisacodyl 5 Mg Tablet) 20 mg PO ONCE ONE; Protocol Stop: 05/24/23 08:01 Last Admin: 05/24/23 08:56 Dose: 20 mg Dexamethasone (Dexamethasone 4 Mg/Ml Inj) 4 mg IVP ONCE ONE Stop: 05/23/23 09:42 Last Admin: 05/23/23 09:51 Dose: 4 mg Dexamethasone (Dexamethasone 4 Mg/Ml Inj) 4 mg IVP ONCE ONE Stop: 05/23/23 15:38 Last Admin: 05/23/23 16:52 Dose: 4 mg Diphenhydramine HCl (Diphenhydramine 50 Mg/Ml Sdv 1ml) 25 mg IVP ONCE ONE Stop: 05/23/23 09:41 Last Admin: 05/23/23 09:51 Dose: 25 mg Gabapentin (Gabapentin 300 Mg Capsule) 300 mg PO BID [facility] Remdesivir 200 mg/ Sodium (Chloride) 100 mls @ 100 mls/hr IV ONCE ONE Stop: 05/23/23 16:36 Last Infusion: 05/23/23 19:31 Dose: Infused Sodium Chloride (Sodium Chloride 0.9%) 1,000 mls @ 30 mls/hr IV .Q24H ONE Stop: 05/25/23 06:07 Last Admin: 05/25/23 00:53 Dose: Not Given Sodium Chloride (Sodium Chloride 0.9%) 1,000 mls @ 30 mls/hr IV .Q24H [facility] Stop: 05/26/23 06:59 Last Infusion: 05/25/23 07:44 Dose: Infused Lidocaine HCl (Xylocaine) Confirm Administered Dose 4 mls @ as directed .ROUTE .STK-MED ONE Stop: 05/25/23 06:27 Iohexol (Iohexol 350 Mg/Ml 500 Ml Btl (Per Ml)) 0 ml IV ONCE ONE Stop: 05/23/23 10:15 Last Admin: 05/23/23 10:15 Dose: 100 ml Lidocaine HCl (Lidocaine 1% Inj 10 Ml (Per Ml)) 0.1 ml INTRADERMA ONCE ONE Stop: 05/24/23 06:09 Last Admin: 05/24/23 07:11 Dose: Not Given Magnesium Citrate (Magnesium Citrate Btl 296 Ml) 296 ml PO 1200,2000 [facility] Stop: 05/24/23 20:01 Last Admin: 05/24/23 21:50 Dose: 296 ml Magnesium Hydroxide (Magnesium Hydroxide 30 Ml Udc) 30 ml PO DAILY PRN; Protocol PRN Reason: Constipation (see protocol) Phenylephrine HCl (Phenylephrine 10 Mg/Ml Sdv 1 Ml) Confirm Administered Dose 10 mg .ROUTE .STK-MED ONE Stop: 05/25/23 06:28 Propofol (Propofol 10 Mg/Ml Sdv 20 Ml) Confirm Administered Dose 200 mg .ROUTE .STK-MED ONE Stop: 05/25/23 06:27 Sertraline HCl (Sertraline 50 Mg Tablet) 25 mg PO DAILY@07 RAMO Last Admin: 05/24/23 06:35 Dose: 25 mg Sodium Chloride (Sodium Chloride 0.9% 100 Ml Bag) 50 ml IV PRN PRN PRN Reason: Blood transfusion prime and flush Stop: 05/25/23 13:13 Allergies amoxicillin Allergy (Verified 05/23/23 07:30) Unknown cefepime Allergy (Verified 05/23/23 07:30) Unknown ciprofloxacin [From Cipro] Allergy (Verified 05/23/23 07:30) Unknown codeine Allergy (Verified 05/23/23 07:30) Unknown Influenza Virus Vaccines Allergy (Verified 05/23/23 07:30) Unknown iodine Allergy (Verified 05/23/23 07:30) Unknown Quinolones Allergy (Verified 05/23/23 07:30) Unknown Sulfa (Sulfonamide Antibiotics) Allergy (Verified 05/23/23 07:30) Unknown Sulfonylureas Allergy (Verified 05/23/23 07:30) Unknown Home Medications polyethylene glycol 3350 17 gram/dose oral powder (Miralax) 17 gm PO Q2D 08/30/19 [History Confirmed 05/23/23] fluticasone propionate 50 mcg/actuation nasal spray,suspension 1 spray intranasal BID@,21 01/09/21 [History Confirmed 05/23/23] magnesium hydroxide 400 mg/5 mL oral suspension (Milk of Magnesia) 30 ml PO Q24H PRN Constipation 01/09/21 [History Confirmed 05/23/23] sertraline 25 mg tablet 25 mg PO DAILY@08/22/21 [History Confirmed 05/23/23] gabapentin 600 mg tablet 600 mg PO DAILY 09/24/21 [History Confirmed 05/23/23] multivitamin 1 tab PO DAILY@09/24/21 [History Confirmed 05/23/23] ondansetron HCl 4 mg tablet 4 mg PO Q4H PRN Nausea And Vomiting 09/24/21 [History Confirmed 05/23/23] sennosides 8.6 mg-docusate sodium 50 mg tablet (Stool Softener-Laxative) 2 tab PO BID@08,20 09/24/21 [History Confirmed 05/23/23] sodium phosphates 19 gram-7 gram/118 mL enema (Sutfz-Db-Mto Enema) 118 ml [place] DAILY PRN Constipation 09/24/21 [History Confirmed 05/23/23] aspirin 81 mg tablet,delayed release 81 mg PO DAILY 30 days #30 tabs 10/04/21 [Rx Confirmed 05/23/23] clopidogrel 75 mg tablet (Plavix) 75 mg PO DAILY 30 days #30 tabs 10/04/21 [Rx Confirmed 05/23/23] potassium chloride 20 mEq tablet,extended release(part/cryst) (Klor-Con M) 20 meq PO DAILY #30 tabs 10/04/21 [Rx Confirmed 05/23/23] solifenacin 5 mg tablet (Vesicare) 5 mg PO DAILY #30 tabs 01/06/22 [Rx Confirmed 05/23/23] acetaminophen 325 mg tablet 650 mg PO Q4H PRN Pain 03/23/23 [History Confirmed 05/23/23] calcium carbonate 500 mg calcium (1,250 mg) chewable tablet 500 mg PO BID 03/23/23 [History Confirmed 05/23/23] cocoa butter-shark liver oil rectal suppository 1 supp [place] DAILY PRN Hemorrhoids 03/23/23 [History Confirmed 05/23/23] famotidine 20 mg tablet 20 mg PO BID 03/23/23 [History Confirmed 05/23/23] furosemide 40 mg tablet 40 mg PO DAILY 03/23/23 [History Confirmed 05/23/23] gabapentin 300 mg capsule 300 mg PO BID 03/23/23 [History Confirmed 05/23/23] morphine 20 mg/5 mL (4 mg/mL) oral solution See Rx Instructions .Route .COMPLEX PRN Pain 03/23/23 [History Confirmed 05/23/23] nitroglycerin 0.4 mg sublingual tablet (Nitrostat) 0.4 mg sublingual Q5M PRN Chest Pain 03/23/23 [History Confirmed 05/23/23] carboxymethylcellulose sodium 1 % eye liquid gel drops 1 drp ophthalmic (eye) TID PRN Dry Eyes 05/14/23 [History Confirmed 05/23/23] lanolin alcohols-mineral oil-w.petrolatum-ceresin topical cream (Eucerin topical cream) 1 applic topical DAILY PRN Dry Skin 05/14/23 [History Confirmed 05/23/23] nystatin 100,000 unit/gram topical powder 1 applic topical BID y 05/14/23 [History Confirmed 05/23/23] calcium polycarbophil 625 mg tablet (Fiber-Lax) 625 mg PO DAILY 30 days #30 tabs 05/19/23 [Rx Confirmed 05/23/23] albuterol sulfate 2.5 mg/3 mL (0.083 %) solution for nebulization 2.5 mg inhalation Q4H PRN broncho pneumonia 05/23/23 [History Confirmed 05/23/23] magnesium L-lactate 84 mg tablet,extended release (Magtab) 84 mg PO DAILY 05/23/23 [History Confirmed 05/23/23] pantoprazole 40 mg tablet,delayed release 40 mg PO DAILY 05/23/23 [History Confirmed 05/23/23] vitamin A and D See Rx Instructions .Route .COMPLEX 05/23/23 [History Confirmed 05/23/23] Discharge Plan Discharge Patient Disposition: er SNF Condition: Stable Prescriptions: Continued magnesium hydroxide [Milk of Magnesia] 400 mg/5 mL suspension 30 ml PO Q24H PRN (Reason: Constipation) fluticasone propionate 50 mcg/actuation spray,suspension 1 spray intranasal BID@09,21 sertraline 25 mg tablet 25 mg PO DAILY@07 polyethylene glycol 3350 [Miralax] 17 gram/dose powder 17 gm PO Q2D Rx Instructions: hold for loose stools solifenacin [Vesicare] 5 mg tablet 5 mg PO DAILY Qty: 30 12RF potassium chloride [Klor-Con M20] 20 mEq tablet,ER particles/crystals 20 meq PO DAILY Qty: 30 0RF furosemide 40 mg tablet 40 mg PO DAILY acetaminophen 325 mg Tablet 650 mg PO Q4H PRN (Reason: Pain) gabapentin 300 mg capsule 300 mg PO BID famotidine 20 mg tablet 20 mg PO BID morphine 20 mg/5 mL (4 mg/mL) Solution See Rx Instructions .ROUTE .COMPLEX PRN (Reason: Pain) Rx Instructions: 0.25 ml orally as needed for pain every 2 hours nitroglycerin [Nitrostat] 0.4 mg Tablet, Sublingual 0.4 mg SUBLINGUAL Q5M PRN (Reason: Chest Pain) Rx Instructions: do not exceed 3 doses per episode cocoa butter-shark liver oil Suppository 1 supp VA DAILY PRN (Reason: Hemorrhoids) calcium carbonate 500 mg calcium (1,250 mg) Tablet,Chewable 500 mg PO BID Eucerin Cream 1 applic TOPICAL DAILY PRN (Reason: Dry Skin) nystatin 100,000 unit/gram Powder 1 applic TOPICAL BID MDD redness carboxymethylcellulose sodium 1 % Drops, Liquid Gel 1 drp OPHTHALMIC (EYE) TID PRN (Reason: Dry Eyes) calcium polycarbophil [Fiber-Lax] 625 mg tablet 625 mg PO DAILY 30 Days Qty: 30 0RF multivitamin Tablet 1 tab PO DAILY@07 gabapentin 600 mg Tablet 600 mg PO DAILY ondansetron HCl 4 mg Tablet 4 mg PO Q4H PRN (Reason: Nausea And Vomiting) sennosides-docusate sodium [Stool Softener-Laxative] 8.6-50 mg Tablet 2 tab PO BID@08,20 Dcnky-Hq-Rmq Enema 19-7 gram/118 mL Enema 118 ml VA DAILY PRN (Reason: Constipation) albuterol sulfate 2.5 mg /3 mL (0.083 %) solution for nebulization 2.5 mg inhalation Q4H PRN (Reason: broncho pneumonia) vitamin A and D Ointment See Rx Instructions .ROUTE .COMPLEX Rx Instructions: APPLY TO FEET AND LEGS BL DAILY AT BEDTIME WITH SOCKS. Magtab 84 mg Tablet Extended Release 84 mg PO DAILY pantoprazole 40 mg tablet,delayed release (DR/EC) 40 mg PO DAILY Held aspirin 81 mg Tablet,Delayed Release (Dr/Ec) 81 mg PO DAILY 30 Days Qty: 30 3RF Hold Instructions: hold till seen by GI for repeat colonoscopy clopidogrel [Plavix] 75 mg tablet 75 mg PO DAILY 30 Days Qty: 30 3RF Hold Instructions: hold till seen by gi for repeat colonoscopy Discontinued bisacodyl 10 mg Suppository 10 mg VA DAILY PRN (Reason: Constipation) loperamide [Imodium A-D] 2 mg Tablet 2 mg PO Q6H PRN (Reason: Diarrhea) phenazopyridine [Pyridium] 200 mg Tablet 200 mg PO TID linezolid 600 mg tablet 600 mg PO BID doxycycline hyclate 100 mg tablet 100 mg PO BID Other Ambulatory Orders: Complete Blood Count w/Auto (Routine) Timeframe: 3 Days Location: Determined by Patient Ordered By: Quiana Greene Referrals: Rishi Robin [Other] - 4-7 days (Recurrent lower GI bleed, hemorrhoid's. We have notified your physician's clinic of the need for a follow-up appointment to be scheduled. If you have not heard from them within the next 2 business days, please call them directly. ) [facility] [Outside] Sudheer Wood MD [Primary Care Provider] - 1 week Mickey Robins MD [Referring] - 4-7 days (Hemmorhoidectomy, GI bleed We have notified your physician's clinic of the need for a follow-up appointment to be scheduled. If you have not heard from them within the next 2 business days, please call them directly. ) Discharge Activity: Resume usual activity Patient Instructions: GI Discharge Instructions Transfer Attestations Time Spent in Transfer Care: greater than 30 min Status at Transfer: Cognitive status at transfer: cognitively intact ; Behavioral status at transfer: cooperative ; Quality Metrics Clinical Quality Measures [ No reported AMI, CVA or VTE this stay] Coding Level of Care Code 17245 Total time (in minutes) for Discharge: 60 Diagnoses Bright red blood per rectum K62.5 Anemia D64.9 Thrombocytopenia D69.6 CAD in [place] artery I25.10 Leukopenia D72.819 Cirrhosis K74.60
[2023-05-26] MEDS: gabapentin 300 mg Capsule PO (08:52)
[2023-05-26] MEDS: sertraline 50 mg Tablet 25 MG PO (08:52)
[2023-05-26] MEDS: sennosides-docusate Tablet 1 TAB PO ×2 (08:52→17:47)
--- NOTE | 2023-05-26 11:20 | PC.SOCIAL ---
IMM Update pg 2 of IMM updated and reviewed w/ patient. Copy provided and copy dated, initialed and placed in chart.
[2023-05-26] MEDS: pantoprazole 40 mg SDV IVP ×2 (13:04→23:26)
[2023-05-26] MEDS: cefTRIAXone 1,000 MG in sodium chloride 0.9% (plus) 50 ML 100 MG IV (15:44)
[2023-05-26] MEDS: azithromycin 500 MG in sodium chloride 0.9% 250 ML 250 MG IV (16:38)
[2023-05-26] MEDS: dexamethasone 10 mg/mL INJ 6 MG IVP (16:54)
[2023-05-26 17:33] LABS: Eosinophils # 0.2 10^3/uL (0.0-0.8); Eosinophils % 3.3 %; Hematocrit 27.1 % (36-47); Lymphocytes # 0.9 10^3/uL (0.8-4.8); Lymphocytes % 16.4 %; Mean Corpuscular Hemoglobin 31.6 pg (27-33); Mean Corpuscular Volume 101.9 fl (85-98); Mean Platelet Volume 10.7 fL (7.4-10.4); Monocytes # 0.8 10^3/uL (0.2-0.9); Monocytes % 14.3 %; Neutrophils # 3.76 10^3/uL (1.8-7.7); Neutrophils % 65.7 %; Nucleated Red Blood Cells % 0 %; Platelet Count 61 10^3/cmm (157-399); Red Blood Count 2.66 10^6/uL (3.85-5.65); Red Cell Distribution Width 17.2 % (12.1-15.1); White Blood Count 5.73 10^3/uL (3.29-11.43)
[2023-05-26] MEDS: remdesivir 100 MG in sodium chloride 0.9% (100 ml) 80 ML IV (17:46)
[2023-05-26] MEDS: gabapentin 300 mg Capsule 600 MG PO (17:47)
[2023-05-27] VITALS (16 sets, daily range): BP systolic 109–122; BP diastolic 64–71; PULSE 76–88; RESP 14–18; TEMP 36.4–36.9; O2SAT 96–100
--- NOTE | 2023-05-27 00:26 | PC.NURSE ---
[facility] called and stated that we are still waiting for a bed for Ms. Machuca
[2023-05-27] MEDS: sodium chloride 0.9% 1,000 ML 30 ML IV (02:12)
[2023-05-27] MEDS: ipratropium-albuterol 3 mL Neb INHALATION ×4 (03:01→19:56)
[2023-05-27 05:32] LABS: Hematocrit 25.1 % (36-47); Lymphocytes # 0.3 10^3/uL (0.8-4.8); Lymphocytes % 14.3 %; Mean Corpuscular HGB Conc 31.1 g/dL (30-55); Mean Corpuscular Hemoglobin 31.7 pg (27-33); Mean Platelet Volume 10.4 fL (7.4-10.4); Monocytes # 0.2 10^3/uL (0.2-0.9); Monocytes % 10.6 %; Neutrophils # 1.42 10^3/uL (1.8-7.7); Neutrophils % 75.1 %; Nucleated Red Blood Cells % 0 %; Platelet Count 33 10^3/cmm (157-399); Red Blood Count 2.46 10^6/uL (3.85-5.65); White Blood Count 1.89 10^3/uL (3.29-11.43)
[2023-05-27 05:57] LABS: Slide Review Slide Review Perform
[2023-05-27] MEDS: sertraline 50 mg Tablet 25 MG PO (08:03)
[2023-05-27] MEDS: magnesium hydroxide 30 mL UDC PO (08:03)
[2023-05-27] MEDS: gabapentin 300 mg Capsule PO (08:04)
[2023-05-27] MEDS: sennosides-docusate Tablet 1 TAB PO ×2 (08:04→17:36)
[2023-05-27] MEDS: budesonide 0.5 mg/2 mL Neb INHALATION ×2 (09:23→19:56)
--- NOTE | 2023-05-27 12:19 | P.PN_ITS ---
Subjective 2 Subjective: seen today platelets 52625, fluctuating between 60-70 hb 7.80 Vitals/I&O/Wt Last Vital Signs Temp 98.1 F 05/27/23 11:44 Pulse 86 05/27/23 11:44 Resp 16 05/27/23 11:44 BP 122/64 05/27/23 11:44 Pulse Ox 99 05/27/23 11:44 O2 Del Method Nasal Cannula 05/27/23 11:44 O2 Flow Rate 2 05/27/23 09:27 05/26/23 05/27/23 05/27/23 22:59 06:59 14:59 Intake Total 1000 / 1360 1300 / 2660 240 / 240 Balance 1000 / 1360 1300 / 2660 240 / 240 Weight last 48 hrs Weight 78.018 kg Weight 89.074 kg Weight 89.074 kg Physical Exam 2 Narrative: General: No acute distress, AO x 2, on 2 L oxygen supplementation HEENT: PERRLA, pupils bilaterally equal and reactive Chest: Normal vesicular breath sounds, no added sounds, equal good air entry bilaterally CVS: S1-S2 regular, no murmurs, no tachycardia, no gallops, no rubs Abdomen: Soft,, bowel sounds sluggish, nontender Neuro: No focal deficits. Data 05/27/23 05:15 05/26/23 05:58 Micro: Microbiology 05/23/23 11:50 Blood Culture - Preliminary Blood 05/23/23 21:20 E. coli Shiga-like Toxin (PCR) - Final Stool Campylobacter (PCR) - Final 05/23/23 11:47 Blood Culture - Preliminary Blood A&P Assessment and plan (1) Bright red blood per rectum: Recurrent episodes. No diverticulitis on CT abdomen pelvis done. Will consult surgery for colonoscopy. Plan for colonoscopy for now on Wednesday. Full liquid diet with possible bowel regimen tomorrow. Start on stool softener with milk of magnesia and senna Colace twice daily. Monitor hemoglobin daily for now. Hemoglobin 9.1 this morning. Pancytopenia: Most likely secondary to liver disease versus COVID-19? We will continue to monitor. Patient did not have to have blood transfusion yesterday after it was ordered I had canceled it. Hemoglobin stable and went up to 9.1 therefore blood was not given. Patient did receive IV antibiotics for bacteremia till April 08. Has mild leukopenia. Cannot rule out C. difficile. Check stool studies. Protonix IV twice daily. (2) Anemia: Baseline hemoglobin seems to be running at 8.7-9.4. Today 9.1.. Target hemoglobin more than 8. Will transfuse if needed. Appreciate recent iron panel, check vitamin B12 and folate levels. (3) Thrombocytopenia: Chronic most likely in setting of liver cirrhosis. Monitor daily. Check INR DIC Profile (4) CAD in [place] artery: No active chest pain. Aspirin and Plavix for now on hold given bleeding per rectum. Check A1c, lipid panel. (5) Leukopenia: Could be in setting of liver cirrhosis but seems more acute. No neutropenia. Check respiratory viral panel. Monitor daily for now. (6) Cirrhosis: Plan Shortness of breath: Subjective. Keep oxygen saturation over 90%. Check CT chest without contrast. Adding respiratory viral panel as above. Hypertension: Goal blood pressure less than 140/90 mmHg. Monitor and start antihypertensives accordingly. Altered mental status: Patient seems to be at baseline mentation. Continue to monitor. Check ammonia levels. Modified barium swallow shows aspiration with thin liquids. Diet has been changed accordingly Pneumonia most likely secondary to aspiration at this point. Continue patient on ceftriaxone and azithromycin. Awaiting transfer to [facility] CODE STATUS: Reviewed [facility] paperwork [facility]. Patient is DNR/DNI. Full liquid diet Protonix every 12 hourly will suffice as PUD prophylaxis SCDs for DVT prophylaxis. Transfuse 1 unit PRBC today. Attestations 2 Medical Necessity Statement*: Requires inpatient stay for monitoring of hemoglobin levels and blood transfusion awaiting transfer to [facility] Diagnoses Bright red blood per rectum K62.5 Anemia D64.9 Thrombocytopenia D69.6 CAD in [place] artery I25.10 Leukopenia D72.819 Cirrhosis K74.60
[2023-05-27 14:05] LABS: Reflex FDPQ test REFLEX FDP QUEST TES
--- NOTE | 2023-05-27 14:07 | XR_ITS ---
WS: [id number] Portable AP upright chest, 05/27/2023 Clinical Data: Post PICC insertion Comparison: None. Findings: The right PICC line ends at the caval atrial junction. No pneumothorax is seen. Impression: Satisfactory insertion of right PICC line.
[2023-05-27 15:04] LABS: Partial Thromboplastin Time 25.5 SECONDS (23.9-36.7)
[2023-05-27 15:05] LABS: D Dimer 2.42 ug/mLFEU (0-0.59)
[2023-05-27 15:24] LABS: Fibrinogen 64 mg/dL (174-498)
--- NOTE | 2023-05-27 15:59 | PC.NURSE ---
Triple lumen 5 Fr PICC placed to right basilic vein. Referred to vascular access nurse for PICC placement due to poor access and need for blood transfusion. Pt to be transferred to [facility] for further treatment. Discussed risks and benefits with pt and pt family, Liset, who will be DPOA. Informed consent obtained from Liset via phone consent. Right arm assessed with right basilic vein measuring 3.2 mm, straight, and apparent best choice for placement. Using sterile technique and MST, right basilic vein accessed x 1 stick. Mid-arm circumference measured 10 cm from right AC 26 cm. Trimmed cath 42 cm with 1 cm external length noted. CXR shows tip in distal SVC, caval atrial juncition, in satisfactory position for use per radiologist. Line secured with stat-lock. Insertion site covered with Biopatch and TSM. Report given to bedside nurseGreta.
[2023-05-27] MEDS: cefTRIAXone 1,000 MG in sodium chloride 0.9% (plus) 50 ML 100 MG IV (17:12)
[2023-05-27] MEDS: pantoprazole 40 mg SDV IVP (17:12)
[2023-05-27] MEDS: dexamethasone 10 mg/mL INJ 6 MG IVP (17:13)
[2023-05-27] MEDS: azithromycin 500 MG in sodium chloride 0.9% 250 ML 250 MG IV (17:34)
[2023-05-27] MEDS: gabapentin 300 mg Capsule 600 MG PO (17:35)
[2023-05-27] MEDS: sodium chloride 0.9% (100 ml) 100 ML (17:37)
[2023-05-27 17:39] LABS: Eosinophils # 0.1 10^3/uL (0.0-0.8); Eosinophils % 1.4 %; Hematocrit 24.9 % (36-47); Lymphocytes # 0.7 10^3/uL (0.8-4.8); Lymphocytes % 17.9 %; Mean Corpuscular HGB Conc 30.9 g/dL (30-55); Mean Corpuscular Hemoglobin 31.4 pg (27-33); Mean Corpuscular Volume 101.6 fl (85-98); Mean Platelet Volume 11.3 fL (7.4-10.4); Monocytes # 0.5 10^3/uL (0.2-0.9); Monocytes % 13.8 %; Neutrophils # 2.41 10^3/uL (1.8-7.7); Neutrophils % 66.3 %; Nucleated Red Blood Cells % 0 %; Platelet Count 40 10^3/cmm (157-399); Red Blood Count 2.45 10^6/uL (3.85-5.65); Red Cell Distribution Width 16.9 % (12.1-15.1); White Blood Count 3.63 10^3/uL (3.29-11.43)
[2023-05-27] MEDS: remdesivir 100 MG in sodium chloride 0.9% (100 ml) 80 ML IV (22:01)
[2023-05-28] VITALS (16 sets, daily range): BP systolic 114–138; BP diastolic 60–77; PULSE 74–91; RESP 15–18; TEMP 36.4–37; O2SAT 97–100; BMI 33.8
[2023-05-28 01:11] LABS: Hematocrit 27.6 % (36-47)
[2023-05-28] MEDS: ipratropium-albuterol 3 mL Neb INHALATION ×4 (01:36→20:24)
[2023-05-28] MEDS: sodium chloride 0.9% 1,000 ML 30 ML IV (01:52)
[2023-05-28] MEDS: pantoprazole 40 mg SDV IVP ×2 (05:14→18:03)
[2023-05-28 05:48] LABS: Hematocrit 28.3 % (36-47); Lymphocytes # 0.3 10^3/uL (0.8-4.8); Lymphocytes % 16.5 %; Mean Corpuscular HGB Conc 31.1 g/dL (30-55); Mean Corpuscular Hemoglobin 31.2 pg (27-33); Mean Corpuscular Volume 100.4 fl (85-98); Mean Platelet Volume 11.7 fL (7.4-10.4); Monocytes # 0.2 10^3/uL (0.2-0.9); Monocytes % 13.5 %; Neutrophils # 1.18 10^3/uL (1.8-7.7); Neutrophils % 69.4 %; Nucleated Red Blood Cells % 0 %; Red Blood Count 2.82 10^6/uL (3.85-5.65)
[2023-05-28 06:54] LABS: Platelet Count 26 10^3/cmm (157-399)
[2023-05-28] MEDS: budesonide 0.5 mg/2 mL Neb INHALATION ×2 (08:10→20:24)
[2023-05-28 08:51] LABS: Folate Level 19.2 ng/mL (4.8-37.3)
[2023-05-28 08:52] LABS: Vitamin B12 1276 pg/mL (232-1245)
[2023-05-28 09:24] LABS: Alanine Aminotransferase 12 U/L (0-33); Albumin Level 2.3 g/dL (3.5-5.2); Alkaline Phosphatase 77 U/L (35-105); Aspartate Amino Transferase 21 U/L (0-32); Blood Urea Nitrogen 14 mg/dL (8-23); Calcium 7.6 mg/dL (8.5-10.5); Carbon Dioxide 26 mmol/L (22-29); Chloride 111 mmol/L (98-107); Globulin 3.1 g/dL (1.3-4.6); Glucose 118 mg/dL (65-115); LAB Peripheral Smear Sent for Review; Osmolality Calculated 296 mOsm/kg (285-295); Sodium 142 mmol/L (136-145); Total Bilirubin 0.7 mg/dL (0.15-1.2); Total Protein 5.4 g/dL (6.6-8.7)
--- NOTE | 2023-05-28 10:00 | P.CONIM_ITS ---
Providers/Reason For Consult 2 Consulting Physician/Specialty*: Hematology Reason for Consult*: Thrombocytopenia Requesting Physician: Quiana Greene MD Attending Physician: Quiana Greene MD Primary Care Provider: Sudheer Wood MD History of Present Illness History of Present Illness This is an 83-year-old woman with moderately severe thrombocytopenia. She has multiple medical illnesses including diabetes, coronary artery disease, cerebrovascular disease, hypothyroidism, and liver cirrhosis. On 05/14/2023 she was admitted to the hospital from the [facility] with acute onset of bright red bleeding from her rectum. At that time she required PRBC transfusion, but she was transferred back to the [facility] in stable condition with her antiplatelet therapy on hold. On 05/23/2023 she was readmitted to the hospital with recurrence of the rectal bleeding. Sputum. At that time she was confirmed to have COVID-19 virus infection. Her initial CBC showed hemoglobin 8.7 g with hematocrit 28.3%. The Red cell indices were slightly macrocytic. The white blood cell count was 2400 and the platelet count was moderately decreased at 54,000. Her baseline platelet count appeared to been in the range of 70-80,000. Her pro time was elevated at 18.80 compared to a baseline protimes her baseline pro time of 16 seconds. During hospitalization she underwent sigmoidoscopy which showed a few small diverticula in the sigmoid colon which were not actively bleeding. She was noted to have multiple medium sized internal hemorrhoids with stigmata of bleeding, which is the presumed source of her bleeding. She has required further PRBC transfusions. As of yesterday there was a decline in the platelet count to 40,000, and today it has further decreased to 26,000. During the same time her white blood cell count has dropped to 1700 with absolute neutrophil count 1100. Her posttransfusion hemoglobin is 8.8 g. Her DIC profile yesterday showed increase in the pro time to 21.5 seconds with PTT 25.5 seconds and with fibrinogen low at 64 mg/dL. D-dimer elevated at 2.42. Results of FDP are still pending. Her comprehensive metabolic profile shows normal renal function with BUN 14 and creatinine 0.5 mg/dL. The bilirubin and liver enzymes are normal. Albumin is low 2.3 g/dL. She has been on antibiotic coverage with ceftriaxone and azithromycin for pneumonia. Her medications otherwise are limited to pantoprazole, famotidine, gabapentin, sertraline, and solifenacin. He is also on calcium supplementation and fluid K zone nasal spray, topical nystatin, multiple vitamin and magnesium supplements and some PRN medications. She feels generally weak and she has very limited activity. Appetite is poor. She is currently not febrile. She does report having sweating. She complains of having generalized pain, headache, sore throat, shortness of breath but not cough, chest pain, and nausea, and she also has acid reflux symptoms. In addition to the rectal bleeding, she has had excessive bruising, but no other bleeding. Review of Systems 2 Narrative: Constitutional: She feels generally weak. Appetite is poor. No fever, but she does complain of having sweating. ECOG score is 3. Eyes:?No change in vision. ENMT: She has hearing loss. No sinus congestion/drainage. No mouth sores. She has sore throat, but no difficulty swallowing. Hematologic/Lymphatic: She has easy bruising. Respiratory: He has shortness of breath. No cough. No pleuritic pain or hemoptysis. Cardiovascular: She has been having chest pain. Gastrointestinal: She has nausea and she complains of having acid reflux. She has been having bright red rectal bleeding. Genitourinary: He has some urgency and some bladder incontinence. Musculoskeletal: She complains of having pain from her toes on up. Integumentary: No skin rash or other skin changes. Neurologic: He complains of having headache and dizziness. He has numbness in her hands and feet. No other focal neurologic symptoms. Psych:?No anxiety or depression. No insomnia. Medications/Allergies Home Medications Medication Instructions Recorded Confirmed Last Taken Type polyethylene glycol 3350 17 17 gm PO Q2D 08/30/19 05/23/23 05/22/23 History gram/dose oral powder (Miralax) fluticasone propionate 50 1 spray intranasal BID@01/09/21 05/23/23 05/22/23 History mcg/actuation nasal spray,suspension magnesium hydroxide 400 mg/5 mL 30 ml PO Q24H PRN Constipation 01/09/21 05/23/23 05/22/23 History oral suspension (Milk of Magnesia) sertraline 25 mg tablet 25 mg PO DAILY@07 08/22/21 05/23/23 05/22/23 History gabapentin 600 mg tablet 600 mg PO DAILY 05/04/22 12/31/23 12/30/23 History multivitamin 1 tab PO DAILY@07 09/24/21 05/23/23 05/22/23 History ondansetron HCl 4 mg tablet 4 mg PO Q4H PRN Nausea And Vomiting 09/24/21 05/23/23 Unknown History sennosides 8.6 mg-docusate sodium 2 tab PO BID@08,20 09/24/21 05/23/23 05/22/23 History 50 mg tablet (Stool Softener-Laxative) sodium phosphates 19 gram-7 118 ml TN DAILY PRN Constipation 09/24/21 05/23/23 Unknown History gram/118 mL enema (Xmise-Xh-Xhy Enema) aspirin 81 mg tablet,delayed 81 mg PO DAILY 30 days #30 tabs 10/04/21 05/23/23 05/19/23 Rx release clopidogrel 75 mg tablet (Plavix) 75 mg PO DAILY 30 days #30 tabs 10/04/21 05/23/23 05/19/23 Rx potassium chloride 20 mEq 20 meq PO DAILY #30 tabs 10/04/21 05/23/23 05/22/23 Rx tablet,extended release(part/cryst) (Klor-Con M) solifenacin 5 mg tablet (Vesicare) 5 mg PO DAILY #30 tabs 01/06/22 05/23/23 05/22/23 Rx acetaminophen 325 mg tablet 650 mg PO Q4H PRN Pain 03/23/23 05/23/23 05/20/23 History calcium carbonate 500 mg calcium 500 mg PO BID 03/23/23 05/23/23 05/22/23 History (1,250 mg) chewable tablet cocoa butter-shark liver oil 1 supp TN DAILY PRN Hemorrhoids 03/23/23 05/23/23 05/22/23 History rectal suppository famotidine 20 mg tablet 20 mg PO BID 03/23/23 05/23/23 05/22/23 History furosemide 40 mg tablet 40 mg PO DAILY 03/23/23 05/23/23 05/22/23 History gabapentin 300 mg capsule 300 mg PO BID 03/23/23 05/23/23 05/22/23 History morphine 20 mg/5 mL (4 mg/mL) oral See Rx Instructions .Route 03/23/23 05/23/23 05/20/23 History solution .COMPLEX PRN Pain nitroglycerin 0.4 mg sublingual 0.4 mg sublingual Q5M PRN Chest 03/23/23 05/23/23 Unknown History tablet (Nitrostat) Pain carboxymethylcellulose sodium 1 % 1 drp ophthalmic (eye) TID PRN Dry 05/14/23 05/23/23 05/22/23 History eye liquid gel drops Eyes lanolin alcohols-mineral 1 applic topical DAILY PRN Dry Skin 05/14/23 05/23/23 Unknown History oil-w.petrolatum-ceresin topical cream (Eucerin topical cream) nystatin 100,000 unit/gram topical 1 applic topical BID y 05/14/23 05/23/23 Unknown History powder calcium polycarbophil 625 mg 625 mg PO DAILY 30 days #30 tabs 05/19/23 05/23/23 05/22/23 Rx tablet (Fiber-Lax) albuterol sulfate 2.5 mg/3 mL 2.5 mg inhalation Q4H PRN broncho 05/23/23 05/23/23 04/25/23 History (0.083 %) solution for nebulization pneumonia magnesium L-lactate 84 mg 84 mg PO DAILY 05/23/23 05/23/23 05/22/23 History tablet,extended release (Magtab) pantoprazole 40 mg tablet,delayed 40 mg PO DAILY 05/23/23 05/23/23 05/22/23 History release vitamin A and D See Rx Instructions .Route .COMPLEX 05/23/23 05/23/23 05/22/23 History Allergies Allergy/AdvReac Type Severity Reaction Status Date / Time amoxicillin Allergy Unknown Verified 05/23/23 07:30 cefepime Allergy Unknown Verified 05/23/23 07:30 ciprofloxacin [From Cipro] Allergy Unknown Verified 05/23/23 07:30 codeine Allergy Unknown Verified 05/23/23 07:30 Influenza Virus Vaccines Allergy Unknown Verified 05/23/23 07:30 iodine Allergy Unknown Verified 05/23/23 07:30 Quinolones Allergy Unknown Verified 05/23/23 07:30 Sulfa (Sulfonamide Allergy Unknown Verified 05/23/23 07:30 Antibiotics) Sulfonylureas Allergy Unknown Verified 05/23/23 07:30 Current Medications Generic Name Dose Route Start Last Admin Trade Name [facility] PRN Reason Stop Dose Admin Acetaminophen 650 mg 05/23/23 12:23 05/26/23 23:26 Acetaminophen 325 Mg Tablet PO 650 mg Q6H PRN Administration Mild/Mod Pain Or Temp >/= 101 Albuterol/Ipratropium 3 ml 05/23/23 20:00 05/28/23 08:09 Ipratropium-Albuterol 3 Ml Neb INHALATION 3 ml Q6H.RESP RAMO Administration Budesonide 0.5 mg 05/23/23 20:00 05/28/23 08:10 Budesonide 0.5 Mg/2 Ml Neb INHALATION 0.5 mg BID.RESPIRATORY RAMO Administration Dexamethasone 6 mg 05/24/23 15:45 05/27/23 17:13 Dexamethasone 10 Mg/Ml Inj IVP 6 mg Q24H RAMO Administration Gabapentin 600 mg 05/23/23 18:00 05/27/23 17:35 Gabapentin 300 Mg Capsule PO 600 mg QPM RAMO Administration Gabapentin 300 mg 05/24/23 09:00 05/27/23 08:04 Gabapentin 300 Mg Capsule PO 300 mg DAILY RAMO Administration Sodium Chloride 1,000 mls @ 30 mls/hr 05/23/23 12:23 05/28/23 01:52 Sodium Chloride 0.9% IV 30 mls/hr .Q24H RAMO Administration Ceftriaxone Sodium 1,000 mg/ 50 mls @ 100 mls/hr 05/25/23 15:30 05/27/23 17:42 Sodium Chloride IV Infused Q24H RAMO Infusion Protocol Azithromycin 500 mg/ Sodium 250 mls @ 250 mls/hr 05/25/23 15:30 05/27/23 18:34 Chloride IV Infused Q24H RAMO Infusion Protocol Magnesium Hydroxide 30 ml 05/23/23 12:45 05/27/23 08:03 Magnesium Hydroxide 30 Ml Udc PO 30 ml DAILY RAMO Administration Protocol Ondansetron HCl 4 mg 05/23/23 12:23 05/24/23 22:01 Ondansetron 2 Mg/Ml Sdv 2 Ml IVP 4 mg Q8H PRN Administration vomiting, or N/V if npo Pantoprazole Sodium 40 mg 05/23/23 12:23 05/28/23 05:14 Pantoprazole 40 Mg Sdv IVP 40 mg Q12H RAMO Administration Senna/Docusate Sodium 1 tab 05/23/23 12:50 05/27/23 17:36 Sennosides-Docusate Tablet PO 1 tab BID RAMO Administration Sertraline HCl 25 mg 05/25/23 09:00 05/27/23 08:03 Sertraline 50 Mg Tablet PO 25 mg DAILY RAMO Administration PFSH Acute 2 PFSH: Medical History (Updated 05/24/23 @ 07:43 by Jamie Gamino DO) Cirrhosis Bacteremia Thrombocytopenia Diabetes Gout Hypothyroidism Acute UTI Non-ST elevation ID (NSTEMI) Confusion Urolithiasis Retained ureteral stent Cystitis cystica History of CVA (cerebrovascular accident) GERD (gastroesophageal reflux disease) Peripheral artery disease Hypertension Chronic back pain Osteoarthritis Polyneuropathy Post herpetic neuralgia CAD in [place] artery Chronic cystitis Surgical History H/O bladder repair surgery S/P tonsillectomy Hip fracture History of cataract surgery History of cholecystectomy H/O: hysterectomy Family History Other Renal cancer Social History Smoking and tobacco/nicotine status: never used tobacco/nicotine Alcohol intake: never Substance/Drug Use: never Adopted: No Caregiver/support person: No Lives independently: No Housing: Retirement Marital status: Current occupational status: retired Current gender identity: Female Vitals/I&O/Wt Last Vital Signs Temp 97.9 F 05/28/23 03:11 Pulse 84 05/28/23 08:20 Resp 18 05/28/23 08:20 BP 123/64 05/28/23 03:11 Pulse Ox 100 05/28/23 08:20 O2 Del Method Nasal Cannula 05/28/23 08:20 O2 Flow Rate 2 05/28/23 08:20 05/27/23 05/28/23 05/28/23 22:59 06:59 14:59 Intake Total 520 / 810 810 / 1620 Balance 520 / 810 810 / 1620 Weight last 48 hrs Weight 79.152 kg Weight 78.471 kg Weight 78.018 kg Physical Exam 2 Narrative: Constitutional: She appears generally weak, but not acutely ill. Eyes: Sclerae nonicteric. Conjunctivae clear. ENMT: No lesions noted in the oral cavity. In particular, there are no mucosal hemorrhages noted. Neck: Neck shows no mass or thyromegaly. Hematologic/Lymphatic: No cervical, clavicular, or axillary adenopathy. Respiratory: Lungs show scattered rales bilaterally. Cardiovascular: Heart rhythm is regular. There is a III/ systolic murmur which is loudest at the base. There is no gallop or rub noted. Abdomen: Mildly distended but soft. Liver does not appear enlarged. I am not able to palpate the spleen. There is no abdominal mass or ascites noted and there is no inguinal adenopathy. Extremities: No edema. There is extensive purpura on both arms. Integumentary: No rashes. No suspicious skin lesions noted. Neurologic: No focal neurologic deficits noted. Data 05/28/23 05:30 05/28/23 05:30 Other data: Review of the blood smear today shows just very rare schistocytes, which would be compatible with artifact. There is severe thrombocytopenia with normal size platelets, and there is neutropenia. There are no blasts seen. A&P Assessment and plan (1) Thrombocytopenia: This is a very complicated patient with known liver cirrhosis and with baseline platelet count of 70 to 80,000 and baseline pro time around 16 seconds. She is admitted to the hospital with bright red bleeding from the rectum, presumed to be due to hemorrhoids. She was also confirmed to have COVID-19 virus infection. She now has had an acute decline in her platelet count to 26,000 and a decrease in her white blood cell count to 1700. She has worsening coagulopathy with her pro time increased to 21 seconds and with fibrinogen low at 64 mg/dL. She has required PRBC transfusion. Given the change from her baseline studies, the current findings are suspicious for some component of DIC. The decline in the blood counts may also be due to the COVID-19 infection and possibly due to bone marrow suppression from acute illness. In any case, the findings on the blood smear and other clinical findings do not suggest a diagnosis of TTP, and in that case I would recommend treating her with sleep a single donor platelet pheresis. I would recheck a CBC 1 hour afterwards to verify the response. I also would continue to monitor her blood counts and coagulation profile daily. Coding Level of Care Code Acute Code for [facility] Fwd Diagnoses Thrombocytopenia D69.6
[2023-05-28] MEDS: magnesium hydroxide 30 mL UDC PO (10:30)
[2023-05-28] MEDS: sennosides-docusate Tablet 1 TAB PO ×2 (10:30→18:29)
[2023-05-28] MEDS: gabapentin 300 mg Capsule PO (10:30)
[2023-05-28] MEDS: sertraline 50 mg Tablet 25 MG PO (10:31)
--- NOTE | 2023-05-28 12:25 | PC.SOCIAL ---
IMM Update pg 2 of IMM updated and reviewed w/ patient. Copy provided and copy dated, initialed and placed in chart.
[2023-05-28 14:27] LABS: Eosinophils # 0.1 10^3/uL (0.0-0.8); Lymphocytes # 0.7 10^3/uL (0.8-4.8); Lymphocytes % 16.1 %; Mean Corpuscular HGB Conc 31.7 g/dL (30-55); Mean Corpuscular Hemoglobin 31.4 pg (27-33); Mean Platelet Volume 10.9 fL (7.4-10.4); Monocytes # 0.7 10^3/uL (0.2-0.9); Monocytes % 15.7 %; Neutrophils # 3.03 10^3/uL (1.8-7.7); Neutrophils % 65.8 %; Nucleated Red Blood Cells % 0 %; Platelet Count 44 10^3/cmm (157-399); Red Blood Count 2.93 10^6/uL (3.85-5.65); Red Cell Distribution Width 17.2 % (12.1-15.1)
--- NOTE | 2023-05-28 14:30 | P.PN_ITS ---
Subjective 2 Subjective: Seen this morning. Platelets 26,000. Have sent off a peripheral smear and consulted hematology. Patient doing well. Patient surprised that hearing that she has a history of liver disease and gastric varices. She says this is a 4 she is hearing of them. She is unsure if her daughter knows either. She denies having history of liver cirrhosis. Vitals/I&O/Wt Last Vital Signs Temp 97.8 F 05/28/23 12:53 Pulse 88 05/28/23 12:53 Resp 15 05/28/23 12:53 BP 130/77 05/28/23 12:53 Pulse Ox 99 05/28/23 12:53 O2 Del Method Nasal Cannula 05/28/23 08:20 O2 Flow Rate 2 05/28/23 08:20 05/27/23 05/28/23 05/28/23 22:59 06:59 14:59 Intake Total 520 / 810 810 / 1620 1204 / 1204 Balance 520 / 810 810 / 1620 1204 / 1204 Weight last 48 hrs Weight 79.152 kg Weight 78.471 kg Weight 78.018 kg Physical Exam 2 Narrative: General: No acute distress, AO x 3 on 2 L oxygen supplementation HEENT: PERRLA, pupils bilaterally equal and reactive Chest: Normal vesicular breath sounds, no added sounds, equal good air entry bilaterally CVS: S1-S2 regular, no murmurs, no tachycardia, no gallops, no rubs Abdomen: Soft,, bowel sounds sluggish, nontender Neuro: No focal deficits. Data 05/28/23 14:14 05/28/23 05:30 A&P Assessment and plan (1) Bright red blood per rectum: Recurrent episodes. No diverticulitis on CT abdomen pelvis done. Will consult surgery for colonoscopy. Plan for colonoscopy for now on Wednesday. Full liquid diet with possible bowel regimen tomorrow. Start on stool softener with milk of magnesia and senna Colace twice daily. Monitor hemoglobin daily for now. Hemoglobin 9.1 this morning. Pancytopenia: Most likely secondary to liver disease versus COVID-19? We will continue to monitor. Patient did not have to have blood transfusion yesterday after it was ordered I had canceled it. Hemoglobin stable and went up to 9.1 therefore blood was not given. Patient did receive IV antibiotics for bacteremia till April 08. Has mild leukopenia. Cannot rule out C. difficile. Check stool studies. Protonix IV twice daily. (2) Anemia: Baseline hemoglobin seems to be running at 8.7-9.4. Today 9.1.. Target hemoglobin more than 8. Will transfuse if needed. Appreciate recent iron panel, check vitamin B12 and folate levels. (3) Thrombocytopenia: Chronic most likely in setting of liver cirrhosis. Monitor daily. INR elevated, fibrinogen low. Most likely in setting of liver cirrhosis. However DIC not completely ruled out at this time. This could be a coagulopathy secondary to COVID-19 as well versus her liver disease. Bone marrow suppression possibly? This is not ITP or TTP. Will transfuse 1 unit platelet. Will see the response. Discussed with Dr. Woodward at length over the phone. He will look at the peripheral smear. Consult hematology. (4) CAD in [place] artery: No active chest pain. Aspirin and Plavix for now on hold given bleeding per rectum. Check A1c, lipid panel. (5) Leukopenia: Could be in setting of liver cirrhosis but seems more acute. No neutropenia. Check respiratory viral panel. Monitor daily for now. (6) Cirrhosis: Plan Shortness of breath: Subjective. Keep oxygen saturation over 90%. Check CT chest without contrast. Adding respiratory viral panel as above. Hypertension: Goal blood pressure less than 140/90 mmHg. Monitor and start antihypertensives accordingly. Altered mental status: Patient seems to be at baseline mentation. Continue to monitor. Check ammonia levels. Modified barium swallow shows aspiration with thin liquids. Diet has been changed accordingly Pneumonia most likely secondary to aspiration at this point. Continue patient on ceftriaxone and azithromycin. Awaiting transfer to [facility] CODE STATUS: Reviewed from the paperwork at senior living. Patient is DNR/DNI. Full liquid diet Protonix every 12 hourly will suffice as PUD prophylaxis SCDs for DVT prophylaxis. Patient did get 1 unit of blood 05/27/2023. Attestations 2 Medical Necessity Statement*: Awaiting transfer to [facility]. Diagnoses Bright red blood per rectum K62.5 Anemia D64.9 Thrombocytopenia D69.6 CAD in [place] artery I25.10 Leukopenia D72.819 Cirrhosis K74.60
[2023-05-28] MEDS: cefTRIAXone 1,000 MG in sodium chloride 0.9% (plus) 50 ML 100 MG IV (15:40)
[2023-05-28] MEDS: dexamethasone 10 mg/mL INJ 6 MG IVP (16:02)
[2023-05-28] MEDS: azithromycin 500 MG in sodium chloride 0.9% 250 ML 250 MG IV (16:43)
[2023-05-28] MEDS: gabapentin 300 mg Capsule 600 MG PO (18:29)
[2023-05-29] VITALS (24 sets, daily range): BP systolic 101–146; BP diastolic 59–81; PULSE 77–95; RESP 16–18; TEMP 36.3–37.4; O2SAT 94–100
[2023-05-29] MEDS: sodium chloride 0.9% 1,000 ML 30 ML IV (00:46)
[2023-05-29] MEDS: ipratropium-albuterol 3 mL Neb INHALATION ×4 (02:12→19:42)
[2023-05-29] MEDS: pantoprazole 40 mg SDV IVP ×2 (04:29→17:04)
[2023-05-29 05:41] LABS: Eosinophils % 0.6 %; Lymphocytes # 0.3 10^3/uL (0.8-4.8); Lymphocytes % 18.4 %; Mean Corpuscular HGB Conc 31.1 g/dL (30-55); Mean Corpuscular Hemoglobin 30.8 pg (27-33); Mean Corpuscular Volume 98.9 fl (85-98); Mean Platelet Volume 11.6 fL (7.4-10.4); Monocytes # 0.2 10^3/uL (0.2-0.9); Monocytes % 13.9 %; Neutrophils # 1.06 10^3/uL (1.8-7.7); Neutrophils % 67.1 %; Nucleated Red Blood Cells % 0 %; Red Blood Count 2.73 10^6/uL (3.85-5.65); Red Cell Distribution Width 16.7 % (12.1-15.1); White Blood Count 1.58 10^3/uL (3.29-11.43)
[2023-05-29 06:04] LABS: Alanine Aminotransferase 12 U/L (0-33); Albumin Level 2.3 g/dL (3.5-5.2); Alkaline Phosphatase 82 U/L (35-105); Anion Gap 10.6 (5-19); Aspartate Amino Transferase 22 U/L (0-32); Blood Urea Nitrogen 14 mg/dL (8-23); Calcium 7.6 mg/dL (8.5-10.5); Carbon Dioxide 24 mmol/L (22-29); Chloride 108 mmol/L (98-107); Globulin 3.1 g/dL (1.3-4.6); Glucose 118 mg/dL (65-115); Osmolality Calculated 290 mOsm/kg (285-295); Potassium 3.6 mmol/L (3.5-5.1); Sodium 139 mmol/L (136-145); Total Bilirubin 0.8 mg/dL (0.15-1.2); Total Protein 5.4 g/dL (6.6-8.7)
[2023-05-29 06:13] LABS: Platelet Count 25 10^3/cmm (157-399)
[2023-05-29] MEDS: budesonide 0.5 mg/2 mL Neb INHALATION ×2 (07:31→19:41)
[2023-05-29] MEDS: sertraline 50 mg Tablet 25 MG PO (08:18)
[2023-05-29] MEDS: sennosides-docusate Tablet 1 TAB PO ×2 (08:18→17:03)
[2023-05-29] MEDS: magnesium hydroxide 30 mL UDC PO (08:18)
[2023-05-29] MEDS: gabapentin 300 mg Capsule PO (08:18)
[2023-05-29] MEDS: sodium chloride 0.9% 100 mL Bag 50 ML IV (11:49)
[2023-05-29] MEDS: sodium chloride 0.9% (100 ml) 100 ML 50 ML (12:52)
--- NOTE | 2023-05-29 13:56 | P.PN_ITS ---
Subjective 2 Subjective: Hemoglobin stable 8.40, platelets 25 today. Vitals/I&O/Wt Last Vital Signs Temp 99.3 F 05/29/23 12:15 Pulse 95 05/29/23 13:48 Resp 16 05/29/23 13:39 BP 123/69 05/29/23 12:34 Pulse Ox 99 05/29/23 13:39 O2 Del Method Nasal Cannula 05/29/23 13:39 O2 Flow Rate 2 05/29/23 13:39 05/28/23 05/29/23 05/29/23 22:59 06:59 14:59 Intake Total 1983 807 / 2791 600 / 600 Balance 1983 807 / 2791 600 / 600 Weight last 48 hrs Weight 80.377 kg Weight 78.642 kg Weight 79.152 kg Physical Exam 2 Narrative: General: No acute distress, AO x 3 on 2 L oxygen supplementation HEENT: PERRLA, pupils bilaterally equal and reactive Chest: Normal vesicular breath sounds, no added sounds, equal good air entry bilaterally CVS: S1-S2 regular, no murmurs, no tachycardia, no gallops, no rubs Abdomen: Soft,, bowel sounds sluggish, nontender Neuro: No focal deficits. Data 05/29/23 05:16 05/29/23 05:16 A&P Assessment and plan (1) Bright red blood per rectum: Recurrent episodes. No diverticulitis on CT abdomen pelvis done. Will consult surgery for colonoscopy. Plan for colonoscopy for now on Wednesday. Full liquid diet with possible bowel regimen tomorrow. Start on stool softener with milk of magnesia and senna Colace twice daily. Monitor hemoglobin daily for now. Hemoglobin 9.1 this morning. Pancytopenia: Most likely secondary to liver disease versus COVID-19? We will continue to monitor. Patient did not have to have blood transfusion yesterday after it was ordered I had canceled it. Hemoglobin stable and went up to 9.1 therefore blood was not given. Patient did receive IV antibiotics for bacteremia till April 08. Has mild leukopenia. Cannot rule out C. difficile. Check stool studies. Protonix IV twice daily. (2) Anemia: Baseline hemoglobin seems to be running at 8.7-9.4. Today 9.1.. Target hemoglobin more than 8. Will transfuse if needed. Appreciate recent iron panel, check vitamin B12 and folate levels. (3) Thrombocytopenia: Chronic most likely in setting of liver cirrhosis. Monitor daily. INR elevated, fibrinogen low. Most likely in setting of liver cirrhosis. However DIC not completely ruled out at this time. This could be a coagulopathy secondary to COVID-19 as well versus her liver disease. Bone marrow suppression possibly? This is not ITP or TTP. Will transfuse 1 unit platelet. Will see the response. Discussed with Dr. Woodawrd at length over the phone. He will look at the peripheral smear. Consult hematology. ? Order additional unit of platelets today. She responded well after the first unit at 44,000 however dropped again to 25,000. (4) CAD in [place] artery: No active chest pain. Aspirin and Plavix for now on hold given bleeding per rectum. Check A1c, lipid panel. (5) Leukopenia: Could be in setting of liver cirrhosis but seems more acute. No neutropenia. Check respiratory viral panel. Monitor daily for now. (6) Cirrhosis: Plan Shortness of breath: Subjective. Keep oxygen saturation over 90%. Check CT chest without contrast. Adding respiratory viral panel as above. Hypertension: Goal blood pressure less than 140/90 mmHg. Monitor and start antihypertensives accordingly. Altered mental status: Patient seems to be at baseline mentation. Continue to monitor. Check ammonia levels. Modified barium swallow shows aspiration with thin liquids. Diet has been changed accordingly Pneumonia most likely secondary to aspiration at this point. Continue patient on ceftriaxone and azithromycin. Awaiting transfer to [facility] CODE STATUS: Reviewed from the paperwork at [facility]. Patient is DNR/DNI. Full liquid diet Protonix every 12 hourly will suffice as PUD prophylaxis SCDs for DVT prophylaxis. Patient did get 1 unit of blood 05/27/2023. Attestations 2 Medical Necessity Statement*: Awaiting transfer to [facility]. Diagnoses Bright red blood per rectum K62.5 Anemia D64.9 Thrombocytopenia D69.6 CAD in [place] artery I25.10 Leukopenia D72.819 Cirrhosis K74.60
[2023-05-29] MEDS: dexamethasone 10 mg/mL INJ 6 MG IVP (15:43)
[2023-05-29] MEDS: cefTRIAXone 1,000 MG in sodium chloride 0.9% (plus) 50 ML 100 MG IV (15:50)
[2023-05-29] MEDS: azithromycin 500 MG in sodium chloride 0.9% 250 ML 250 MG IV (16:55)
[2023-05-29] MEDS: gabapentin 300 mg Capsule 600 MG PO (17:03)
--- NOTE | 2023-05-29 23:35 | PC.NURSE ---
Patient left floor at this time for transfer to [place] by [facility]. Paperwork packet given to EMS personnel. Receiving nurse notified of patient departure and patient DPOA also notified. All personal belongings taken with patient.
[2023-06-03 02:24] LABS: Fibrinogen Degradation Product 5 mcg/mL (LESS THAN 5)
== END 2023-05-29 23:35 | disposition short-term general hospital (02) | DRG 377 ==
LOC: ER 08:28 → MEDSURG 11:23
PROVIDERS: Surgery; Admitting Provider Student in an Organized Health Care Education/Training Program; Emergency Provider Family Medicine; PCP Internal Medicine; Visit Provider Internal Medicine
PROC: 0DJD8ZZ Inspection of Lower Intestinal Tract, Via Natural or Artificial Opening Endoscopic (ICD-10-PCS; 2023-05-25 06:30)
PROC: 0DJD8ZZ Inspection of Lower Intestinal Tract, Via Natural or Artificial Opening Endoscopic (ICD-10-PCS; CPT 45330; 2023-05-25 06:30)
DX: K57.31 Diverticulosis of large intestine without perforation or abscess with bleeding (principal); J12.82 Pneumonia due to coronavirus disease 2019; U07.1 COVID-19; D61.818 Other pancytopenia; K64.8 Other hemorrhoids; N30.20 Other chronic cystitis without hematuria; H91.90 Unspecified hearing loss, unspecified ear; I25.10 Atherosclerotic heart disease of native coronary artery without angina pectoris; K74.60 Unspecified cirrhosis of liver; M10.9 Gout, unspecified; E03.9 Hypothyroidism, unspecified; I25.2 Old myocardial infarction; Z86.73 Personal history of transient ischemic attack (TIA), and cerebral infarction without residual deficits; K21.9 Gastro-esophageal reflux disease without esophagitis; I10 Essential (primary) hypertension; E11.51 Type 2 diabetes mellitus with diabetic peripheral angiopathy without gangrene; E11.42 Type 2 diabetes mellitus with diabetic polyneuropathy
CPT/HCPCS: 36415; 36430; 36573; 36592; 45330; 71045; 71250; 74177; 74230; 80048; 80053; 80061; 81001; 82140; 82274; 82607; 82746; 83036; 83630; 83735; 84100; 84443; 85014; 85018; 85025; 85362; 85378; 85384; 85610; 85730; 86850; 86900; 86920; 87040; 87045; 87086; 87177; 87209; 87427; 87449; 87486; 87493; 87581; 87633; 92610; 92611; 94640; 94664; 99285; C1751; C9113; J0248; J0456; J0696; J1100; J1200; J2270; J2371; J2405; J2704; J7030; J7050; J7626; P9016; P9035; P9055; Q9967

== ENCOUNTER 2023-06-08 18:45 | Emergency (ER) | payer MEDICARE, MEDICAID, SELFPAY ==
[2023-06-08] VITALS (8 sets, daily range): BP systolic 101–133; BP diastolic 45–58; PULSE 73–82; RESP 12–24; TEMP 36.6; O2SAT 97–100; BMI 30.2
--- NOTE | 2023-06-08 18:56 | ED_ITS ---
HPI - SOB/Dyspnea 2 General: Chief Complaint: Shortness of Breath/Dyspnea Stated Complaint: Resp Distress Time Seen by Provider: 06/08/23 18:49 History of Present Illness: HPI Narrative: Patient presents to the ER from the assisted at [place] with some altered mental status and shortness of breath. Patient does normally wear oxygen at 2 L per her. Patient does not know how long she has been sick. Patient does admit to having worsening shortness of breath than usual. Review of Systems 2 General: Reports: 10 or more systems reviewed and unremarkable except in HPI and below PFSH ED 2 PFSH: Medical History Cirrhosis Bacteremia Thrombocytopenia Diabetes Gout Hypothyroidism Acute UTI Non-ST elevation LA (NSTEMI) Confusion Urolithiasis Retained ureteral stent Cystitis cystica History of CVA (cerebrovascular accident) GERD (gastroesophageal reflux disease) Peripheral artery disease Hypertension Chronic back pain Osteoarthritis Polyneuropathy Post herpetic neuralgia CAD in [place] artery Chronic cystitis Surgical History H/O bladder repair surgery S/P tonsillectomy Hip fracture History of cataract surgery History of cholecystectomy H/O: hysterectomy Family History Other Renal cancer Social History Smoking and tobacco/nicotine status: never used tobacco/nicotine Alcohol intake: never Substance/Drug Use: never Adopted: No Caregiver/support person: No Lives independently: No Housing: Skilled Nursing Marital status: Current occupational status: retired Current gender identity: Female Physical Exam 2 Const: COMMON NORMALS: no acute distress, average body habitus, healthy appearing, alert and well nourished HENMT: COMMON NORMALS: normocephalic, atraumatic, hearing grossly normal bilaterally, external ears normal, EAC's normal, Normal external nose present, moist oral mucous membranes and oropharynx normal HEAD & SCALP: normocephalic and atraumatic NOSE: Normal external nose present EXTERNAL EAR: Yes external ears normal EXTERNAL AUDITORY CANAL: EAC's normal Neck/C-Spine: COMMON NORMALS: no JVD Chest: COMMONS NORMALS: normal inspection of the chest and normal palpation of entire chest wall Resp: COMMON NORMALS: normal respiratory effort, No retractions, No use of accessory muscles and clear to auscultation bilaterally AUSCULTATION: clear to auscultation bilaterally Cardio: COMMON NORMALS: no JVD, regular rate, regular rhythm, S1 normal heart sound present, S2 normal heart sound present, No gallops present (Cardio), No clicks present (Cardio), No murmurs present (Cardio) and No rub (Cardio) R ATE: regular rate RHYTHM: regular rhythm HEART SOUNDS: S1 normal heart sound present and S2 normal heart sound present GI: COMMON NORMALS: Normal to inspection, nondistended, normoactive bowel sounds present, Soft to palpation, non-tender, No hepatosplenomegaly present, no masses and no bruits PALPATION: Yes Soft to palpation and Yes No hepatosplenomegaly present Neuro: SENSORIUM/ORIENTATION: Yes alert Course 2 Vital Signs: Vital signs: Vital Signs Temperature 97.9 F 06/08/23 18:48 Pulse Rate 78 06/08/23 21:17 Respiratory Rate 24 H 06/08/23 21:17 Blood Pressure 111/54 06/08/23 21:17 Pulse Oximetry 100 06/08/23 21:17 Oxygen Delivery Me thod Nasal Cannula 06/08/23 21:17 Oxygen Flow Rate 2 06/08/23 21:17 MDM - SOB/Dyspnea Medical Decision Making Upon recheck patient patient is sleeping soundly on 2 L of oxygen per nasal cannula satting 100%. Lab work was obtained as well as urinalysis and chest x-ray. Chest x-ray showed possible alveolar edema or bronchopneumonia left greater than right, blood work showed hemoglobin of 8.6 hematocrit 28.0 with platelets of 53, this is chronic for the patient. White count of 5.67, urinalysis was positive for infection. Magnesium was slightly low 1.5. Patient was given 1 g Rocephin IV and will be discharged back to the assisted with prescription for Omnicef. Patient's prior urinalysis did show a couple bacteria were sensitive to Omnicef. Differential Diagnosis Likely community acquired pneumonia; Unlikely acute exacerbation of chronic obstructive airways disease, congestive heart failure, asthma with exacerbation or pulmonary embolism Medical Records I reviewed the patient's medical records. Lab Data I reviewed the patient's lab results. 06/08/23 20:08 06/08/23 20:08 Labs/Radiology: Radiology Impressions Chest X-Ray 06/08/23 19:03 IMPRESSION: 1. Small left pleural effusion suspected. 2. Cardiomegaly. 3. Interstitial edema and pulmonary vascular congestion. 4. Patchy ground-glass airspace opacities left greater than right may reflect alveolar edema and/or bronchopneumonia. Laboratory Results WBC 5.67 10^3/uL (3.29-11.43) 06/08/23 20:08 RBC 2.78 10^6/uL (3.85-5.65) L 06/08/23 20:08 Hgb 8.60 g/dL (11.27-16.99) L 06/08/23 20:08 Hct 28.0 % (36-47) L 06/08/23 20:08 MCV 100.7 fl (85-98) H 06/08/23 20:08 MCH 30.9 pg (27-33) 06/08/23 20:08 MCHC 30.7 g/dL (30-55) 06/08/23 20:08 RDW 16.1 % (12.1-15.1) H 06/08/23 20:08 Plt Count 53 10^3/cmm (157-399) L 06/08/23 20:08 MPV 11.4 fL (7.4-10.4) H 06/08/23 20:08 Neut % (Auto) 69.8 % 06/08/23 20:08 Lymph % (Auto) 11.8 % 06/08/23 20:08 [place] % (Auto) 12.2 % 06/08/23 20:08 Eos % (Auto) 5.5 % 06/08/23 20:08 Baso % (Auto) 0.5 % 06/08/23 20:08 Neut # (Auto) 3.96 10^3/uL (1.8-7.7) 06/08/23 20:08 Lymph # (Auto) 0.7 10^3/uL (0.8-4.8) L 06/08/23 20:08 [place] # (Auto) 0.7 10^3/uL (0.2-0.9) 06/08/23 20:08 Eos # (Auto) 0.3 10^3/uL (0.0-0.8) 06/08/23 20:08 Baso # (Auto) 0.0 10^3/uL (0.0-0.1) 06/08/23 20:08 Nucleated RBC % (auto) 0 % 06/08/23 20:08 Nucleated RBCs # 0.0 /100WBC 06/08/23 20:08 Sodium 139 mmol/L (136-145) 06/08/23 20:08 Potassium 3.5 mmol/L (3.5-5.1) 06/08/23 20:08 Chloride 101 mmol/L (98-107) 06/08/23 20:08 Carbon Dioxide 32 mmol/L (22-29) H 06/08/23 20:08 Anion Gap 9.5 (5-19) 06/08/23 20:08 BUN 7 mg/dL (8-23) L 06/08/23 20:08 Creatinine 0.6 mg/dL (0.5-0.9) 06/08/23 20:08 GFR Calculation Not Reportable 06/08/23 20:08 Glucose 118 mg/dL (65-115) H 06/08/23 20:08 Calculated Osmolality 287 mOsm/kg (285-295) 06/08/23 20:08 Calcium 7.6 mg/dL (8.5-10.5) L 06/08/23 20:08 Magnesium 1.5 mg/dL (1.7-2.3) L 06/08/23 20:08 Total Bilirubin 1.4 mg/dL (0.15-1.2) H 06/08/23 20:08 AST 43 U/L (0-32) H 06/08/23 20:08 ALT 26 U/L (0-33) 06/08/23 20:08 Alkaline Phosphatase 197 U/L (35-105) H 06/08/23 20:08 NT-Pro-B Natriuret Pep 685 pg/mL (0-450) H 06/08/23 20:08 Total Protein 5.5 g/dL (6.6-8.7) L 06/08/23 20:08 Albumin 2.3 g/dL (3.5-5.2) L 06/08/23 20:08 Globulin 3.2 g/dL (1.3-4.6) 06/08/23 20:08 Urine Color Yellow (Yellow) 06/08/23 20:21 Urine Appearance Sl hazy (CLEAR) A 06/08/23 20:21 Urine pH 8 (5-7) H 06/08/23 20:21 Ur Specific [place] 1.015 (1.005-1.030) 06/08/23 20:21 Urine Protein Neg (Negative) 06/08/23 20:21 Urine Glucose (UA) Norm (Normal) 06/08/23 20:21 Urine Ketones Negative (Negative) 06/08/23 20:21 Urine Blood 2+ (Negative) H 06/08/23 20:21 Urine Nitrate Negative (Negative) 06/08/23 20:21 Urine Bilirubin Neg (Negative) 06/08/23 20:21 Prot Sulfosalicylic Acd Negative (Negative) 06/08/23 20:21 Urine Urobilinogen Norm mg/dL (Negative) 06/08/23 20:21 Ur Leukocyte Esterase 2+ (Negative) H 06/08/23 20:21 Urine RBC 0-4 /hpf (0-2) H 06/08/23 20:21 Urine WBC >100 /hpf (0-5) H 06/08/23 20:21 Ur Squamous Epith Cells 0-4 /hpf (0-5) H 06/08/23 20:21 Ur Renal Epithelial Cell 0-4 /hpf 06/08/23 20:21 Amorphous Sediment Not Reportable 06/08/23 20:21 Urine Bacteria 3+ /hpf (NONE) H 06/08/23 20:21 All radiology interpretation(s) finalized by discharge Discharge Plan Discharge Patient Disposition: Home Clinical Impression: Urinary tract infection Condition: Stable Prescriptions: No Action magnesium hydroxide [Milk of Magnesia] 400 mg/5 mL suspension 30 ml PO Q24H PRN (Reason: Constipation) fluticasone propionate 50 mcg/actuation spray,suspension 1 spray intranasal BID@, sertraline 25 mg tablet 25 mg PO DAILY@07 polyethylene glycol 3350 [Miralax] 17 gram/dose powder 17 gm PO Q2D Rx Instructions: hold for loose stools solifenacin [Vesicare] 5 mg tablet 5 mg PO DAILY Qty: 30 12RF aspirin 81 mg Tablet,Delayed Release (Dr/Ec) 81 mg PO DAILY 30 Days Qty: 30 3RF Hold Instructions: hold till seen by GI for repeat colonoscopy clopidogrel [Plavix] 75 mg tablet 75 mg PO DAILY 30 Days Qty: 30 3RF Hold Instructions: hold till seen by gi for repeat colonoscopy potassium chloride [Klor-Con M20] 20 mEq tablet,ER particles/crystals 20 meq PO DAILY Qty: 30 0RF furosemide 40 mg tablet 40 mg PO DAILY acetaminophen 325 mg Tablet 650 mg PO Q4H PRN (Reason: Pain) gabapentin 300 mg capsule 300 mg PO BID famotidine 20 mg tablet 20 mg PO BID morphine 20 mg/5 mL (4 mg/mL) Solution See Rx Instructions .ROUTE .COMPLEX PRN (Reason: Pain) Rx Instructions: 0.25 ml orally as needed for pain every 2 hours nitroglycerin [Nitrostat] 0.4 mg Tablet, Sublingual 0.4 mg SUBLINGUAL Q5M PRN (Reason: Chest Pain) Rx Instructions: do not exceed 3 doses per episode cocoa butter-shark liver oil Suppository 1 supp KS DAILY PRN (Reason: Hemorrhoids) calcium carbonate 500 mg calcium (1,250 mg) Tablet,Chewable 500 mg PO BID Eucerin Cream 1 applic TOPICAL DAILY PRN (Reason: Dry Skin) nystatin 100,000 unit/gram Powder 1 applic TOPICAL BID MDD redness carboxymethylcellulose sodium 1 % Drops, Liquid Gel 1 drp OPHTHALMIC (EYE) TID PRN (Reason: Dry Eyes) calcium polycarbophil [Fiber-Lax] 625 mg tablet 625 mg PO DAILY 30 Days Qty: 30 0RF multivitamin Tablet 1 tab PO DAILY@07 gabapentin 600 mg Tablet 600 mg PO DAILY ondansetron HCl 4 mg Tablet 4 mg PO Q4H PRN (Reason: Nausea And Vomiting) sennosides-docusate sodium [Stool Softener-Laxative] 8.6-50 mg Tablet 2 tab PO BID@08,20 Lraii-Cu-Vnp Enema 19-7 gram/118 mL Enema 118 ml KS DAILY PRN (Reason: Constipation) albuterol sulfate 2.5 mg /3 mL (0.083 %) solution for nebulization 2.5 mg inhalation Q4H PRN (Reason: broncho pneumonia) vitamin A and D Ointment See Rx Instructions .ROUTE .COMPLEX Rx Instructions: APPLY TO FEET AND LEGS BL DAILY AT BEDTIME WITH SOCKS. Magtab 84 mg Tablet Extended Release 84 mg PO DAILY pantoprazole 40 mg tablet,delayed release (DR/EC) 40 mg PO DAILY Discharge Orders: Discharge ED (Routine); Ordered 06/08/23 Ordered By: Lucio Shaw Referrals: Sudheer Wood MD [Primary Care Provider] - 1 week Patient Instructions: Urinary Tract Infection in Older Adults (ED) Activity Restrictions/Additional Instructions: Please take all your antibiotics as prescribed. Please follow-up with your family practice physician within next 7 to 10 days for further evaluation treatment as needed. If your symptoms worsen please return to the ER. Coding Level of Care Code ED Internet Specialist for Paramjit Low
--- NOTE | 2023-06-08 19:03 | XRR_ITS ---
PROCEDURE INFORMATION: Exam: XR Chest Exam date and time: 06/08/2023 7:09 PM Age: 83 years old Clinical indication: Shortness of breath; Additional info: Dyspnea TECHNIQUE: Imaging protocol: Radiologic exam of the chest. Views: 1 view. COMPARISON: CR XR chest 1V portable [id number] 05/27/2023 3:07 PM FINDINGS: Lungs: Interstitial edema and pulmonary vascular congestion. Patchy ground-glass airspace opacities left greater than right may reflect alveolar edema and/or bronchopneumonia. Pleural spaces: Small left pleural effusion suspected. Heart/Mediastinum: Cardiomegaly. Bones/joints: Unremarkable. XR/XR chest 1V portable [id number] IMPRESSION: 1. Small left pleural effusion suspected. 2. Cardiomegaly. 3. Interstitial edema and pulmonary vascular congestion. 4. Patchy ground-glass airspace opacities left greater than right may reflect alveolar edema and/or bronchopneumonia.
--- NOTE | 2023-06-08 19:22 | ECG_ITS ---
[facility] Test Date: 2023-06-08 Pat Name: Daksha Machuca Department: Room: Gender: Female Insulation Foreman: : 1940 Requested By: Lucio Shaw Order Number: [id number] Magalys MD: Mavis Paige M.D. Measurements Intervals [place] Rate: 82 P: -8 SC: 156 QRS: 74 QRSD: 75 T: 63 QT: 314 QTc: 367 Interpretive Statements SINUS RHYTHM NONSPECIFIC T-WAVE ABNORMALITY Compared to ECG 05/14/2023 08:54:17 T-wave abnormality now present Myocardial infarct finding no longer present Electronically Signed On 06-08-2023 19:39:17 MANAGER HELPD[employer]K by Mavis Paige M.D. [id number]
[2023-06-08 20:15] LABS: Basophils % 0.5 %; Eosinophils # 0.3 10^3/uL (0.0-0.8); Eosinophils % 5.5 %; Lymphocytes # 0.7 10^3/uL (0.8-4.8); Lymphocytes % 11.8 %; Mean Corpuscular HGB Conc 30.7 g/dL (30-55); Mean Corpuscular Hemoglobin 30.9 pg (27-33); Mean Corpuscular Volume 100.7 fl (85-98); Mean Platelet Volume 11.4 fL (7.4-10.4); Monocytes # 0.7 10^3/uL (0.2-0.9); Monocytes % 12.2 %; Neutrophils # 3.96 10^3/uL (1.8-7.7); Neutrophils % 69.8 %; Nucleated Red Blood Cells % 0 %; Platelet Count 53 10^3/cmm (157-399); Red Blood Count 2.78 10^6/uL (3.85-5.65); Red Cell Distribution Width 16.1 % (12.1-15.1); White Blood Count 5.67 10^3/uL (3.29-11.43)
[2023-06-08 20:40] LABS: Add Urine Culture? Yes; Add Urine Microscopic? YES; Bacteria Urine 3+ /hpf; Bilirubin Urine Neg (Negative); Blood Urine 2+ (Negative); Glucose Urine UA Norm (Normal); Ketones Urine Negative (Negative); Leukocyte Esterase Urine 2+ (Negative); Nitrate Urine Negative (Negative); Protein Urine Neg (Negative); RBC Urine 0-4 /hpf (0-2); Renal Epithelial Cells Urine 0-4 /hpf; Specific Gravity, Urine 1.015 (1.005-1.030); Squamous Epithelial Cell Urine 0-4 /hpf (0-5); Sulfosalicylic Acid Urine Negative (Negative); Urine Appearance SL Hazy (CLEAR); Urine Color Yellow (Yellow); Urobilinogen Urine Norm (Negative); WBC Urine >100 /hpf (0-5); pH Urine 8 (5-7)
[2023-06-08 20:50] LABS: Alanine Aminotransferase 26 U/L (0-33); Albumin Level 2.3 g/dL (3.5-5.2); Alkaline Phosphatase 197 U/L (35-105); Aspartate Amino Transferase 43 U/L (0-32); Blood Urea Nitrogen 7 mg/dL (8-23); Calcium 7.6 mg/dL (8.5-10.5); Carbon Dioxide 32 mmol/L (22-29); Chloride 101 mmol/L (98-107); Globulin 3.2 g/dL (1.3-4.6); Glucose 118 mg/dL (65-115); Magnesium 1.5 mg/dL (1.7-2.3); NT Pro B Type Natriuretic Pept 685 pg/mL (0-450); Osmolality Calculated 287 mOsm/kg (285-295); Sodium 139 mmol/L (136-145); Total Bilirubin 1.4 mg/dL (0.15-1.2); Total Protein 5.5 g/dL (6.6-8.7)
[2023-06-08 20:56] LABS: Anion Gap 9.5 (5-19); Potassium 3.5 mmol/L (3.5-5.1)
[2023-06-08] MEDS: cefTRIAXone 1,000 MG in sodium chloride 0.9% (plus) 50 ML 100 MG IV (21:02)
[2023-06-09 00:05] VITALS: BP 121/69; PULSE 72; RESP 14; O2SAT 98
[2023-06-09 00:28] VITALS: BP 96/46; PULSE 80; RESP 20; O2SAT 99
== END 2023-06-09 00:32 | disposition home or self-care (01) ==
PROVIDERS: Emergency Provider Emergency Medicine; PCP Internal Medicine
DX: J18.8 Other pneumonia, unspecified organism (principal); R06.02 Shortness of breath; N39.0 Urinary tract infection, site not specified
CPT/HCPCS: 36415; 51701; 71045; 80053; 81001; 83735; 83880; 85025; 87040; 87077; 87086; 87186; 93005; 96374; 99285; J0696

== ENCOUNTER 2023-06-13 08:46 | Inpatient (IN) | payer MEDICARE, MEDICAID, SELFPAY ==
[2023-06-13] VITALS (17 sets, daily range): BP systolic 113–155; BP diastolic 56–76; PULSE 72–79; RESP 16–19; TEMP 36.4–37.3; O2SAT 87–99; BMI 28.3; BMI 27.3
--- NOTE | 2023-06-13 08:49 | XRR_ITS ---
PROCEDURE INFORMATION: Exam: XR Chest Exam date and time: 06/13/2023 9:22 AM Age: 83 years old Clinical indication: Dyspnea; Additional info: Dyspnea/cough TECHNIQUE: Imaging protocol: Radiologic exam of the chest. Views: 1 view. COMPARISON: CR (CHEST, ) 06/08/2023 7:09 PM FINDINGS: Lungs: Volume loss in left hemithorax and round atelectasis pattern densities in mid and lower lungs and lateral upper lungs is similar to previous study. Mild atelectasis in right lung base. Pleural spaces: Small right and moderate left pleural effusion suspected. No pneumothorax. Heart/Mediastinum: Stable cardiomegaly. Bones/joints: Stable spondylotic changes of the spine. XR/XR chest 1V portable [id number] IMPRESSION: Chronic appearing changes in left hemithorax with round atelectasis, volume loss and pleural effusion. Small right pleural effusion with atelectatic changes. These findings are similar to previous study. Superimposed infection not excluded.
--- NOTE | 2023-06-13 08:49 | ED_ITS ---
HPI - General Adult 2 General: Chief complaint: Weakness Stated complaint: WEAKNESS Time Seen by Provider: 06/13/23 08:48 Source: patient Mode of arrival: EMS History of Present Illness: 83-year-old female returns emergency kimmie m with complaint of rectal bleeding. She has had this several times in the past was recently admitted here and transferred to [facility]. She had thrombocytopenia as well there is a concern for rectal mass we were able to get the records from [facility] she had no significant findings with colorectal surgery consultation who had difficulty with colonoscopy here there were able to perform the colonoscopy there there were no masses no active sites of bleeding I did not feel any intervention was needed. They did recommend stopping her antiplatelet therapy and felt she would likely continue to intermittently have bleeding because of her thrombocytopenia. I recommended transfusing to maintain hemoglobin above 7 and platelet count above 25. She is still having active bleeding and had a large bloody bowel movement after arriving here. Onset (ago): hour(s) Relieving factors: none Exacerbating factors: none Associated symptoms: Reports decreased appetite; Deny chest pain, confusion, cough, diaphoresis, dyspnea, fevers/chills, headache(s), malaise, nausea, rash, palpitations, seizures, short of breath, syncope, vomiting or weakness Treatments prior to arrival: none Review of Systems 2 Const: Denies: fever(s), chills, fatigue, malaise or diaphoresis Card: Denies: chest pain, palpitations or syncope Resp: Denies: dyspnea GI: Reports: hematochezia; Denies: abdominal pain, nausea or vomiting : Denies: dysuria, urinary frequency or urinary urgency Musc: Denies: neck pain or back pain Skin/Breast: Denies: rash Neuro: Denies: headache(s) or confusion PFSH ED 2 PFSH: Medical History Cirrhosis Bacteremia Thrombocytopenia Diabetes Gout Hypothyroidism Acute UTI Non-ST elevation [place] (NSTEMI) Confusion Urolithiasis Retained ureteral stent Cystitis cystica History of CVA (cerebrovascular accident) GERD (gastroesophageal reflux disease) Peripheral artery disease Hypertension Chronic back pain Osteoarthritis Polyneuropathy Post herpetic neuralgia CAD in [place] artery Chronic cystitis Surgical History H/O bladder repair surgery S/P tonsillectomy Hip fracture History of cataract surgery History of cholecystectomy H/O: hysterectomy Family History Other Renal cancer Social History Smoking and tobacco/nicotine status: never used tobacco/nicotine Alcohol intake: never Substance/Drug Use: never Adopted: No Caregiver/support person: No Lives independently: No Housing: Longterm Marital status: Current occupational status: retired Current gender identity: Female Course 2 Vital Signs: Vital signs: Vital Signs Temperature 98.8 F 06/14/23 04:00 Pulse Rate 74 06/14/23 04:00 Respiratory Rate 17 06/14/23 04:00 Blood Pressure 111/64 06/14/23 04:00 Pulse Oximetry 93 06/14/23 04:00 Oxygen Delivery Me thod Room Air 06/14/23 04:00 MDM - General Adult Medical Decision Making Blood per rectum hemoglobin less than 8 she is symptomatic unfortunately she is still having bloody bowel movements. Will transfuse 1 unit of packed red blood cells I do not believe she needs platelets at this point. Discussed with hospitalist placed on observation. We did confirm with the correction she has not been receiving any antiplatelet therapy. Incidental finding of cystitis suspect that she has chronic cystitis reviewed previous culture reports discussed with Dr. Greene who is attending on observation will likely wait related treatment until her culture report comes back Medical Records I reviewed the patient's medical records. Lab Data I reviewed the patient's lab results. 06/13/23 20:30 06/13/23 09:20 Radiology Impressions Chest X-Ray 06/13/23 08:49 IMPRESSION: Chronic appearing changes in left hemithorax with round atelectasis, volume loss and pleural effusion. Small right pleural effusion with atelectatic changes. These findings are similar to previous study. Superimposed infection not excluded. Laboratory Results WBC 2.51 10^3/uL (3.29-11.43) L 06/13/23 09:20 RBC 2.54 10^6/uL (3.85-5.65) L 06/13/23 09:20 Hgb 7.90 g/dL (11.27-16.99) L 06/13/23 09:20 Hct 25.8 % (36-47) L 06/13/23 09:20 MCV 101.6 fl (85-98) H 06/13/23 09:20 MCH 31.1 pg (27-33) 06/13/23 09:20 MCHC 30.6 g/dL (30-55) 06/13/23 09:20 RDW 16.9 % (12.1-15.1) H 06/13/23 09:20 Plt Count 52 10^3/cmm (157-399) L 06/13/23 09:20 MPV 11.2 fL (7.4-10.4) H 06/13/23 09:20 Neut % (Auto) 55.8 % 06/13/23 09:20 Lymph % (Auto) 17.5 % 06/13/23 09:20 Branch % (Auto) 17.5 % 06/13/23 09:20 Eos % (Auto) 8.8 % 06/13/23 09:20 Baso % (Auto) 0.4 % 06/13/23 09:20 Neut # (Auto) 1.40 10^3/uL (1.8-7.7) L 06/13/23 09:20 Lymph # (Auto) 0.4 10^3/uL (0.8-4.8) L 06/13/23 09:20 Branch # (Auto) 0.4 10^3/uL (0.2-0.9) 06/13/23 09:20 Eos # (Auto) 0.2 10^3/uL (0.0-0.8) 06/13/23 09:20 Baso # (Auto) 0.0 10^3/uL (0.0-0.1) 06/13/23 09:20 Nucleated RBC % (auto) 0 % 06/13/23 09:20 Nucleated RBCs # 0.0 /100WBC 06/13/23 09:20 PT 17.40 SECONDS (12.1-14.9) H 06/13/23 09:20 INR 1.38 (0.8-1.2) H 06/13/23 09:20 APTT 31.3 SECONDS (23.9-36.7) 06/13/23 09:20 Sodium 136 mmol/L (136-145) 06/13/23 09:20 Potassium 4.1 mmol/L (3.5-5.1) 06/13/23 09:20 Chloride 97 mmol/L (98-107) L 06/13/23 09:20 Carbon Dioxide 32 mmol/L (22-29) H 06/13/23 09:20 Anion Gap 11.1 (5-19) 06/13/23 09:20 BUN 6 mg/dL (8-23) L 06/13/23 09:20 Creatinine 0.8 mg/dL (0.5-0.9) 06/13/23 09:20 GFR Calculation Not Reportable 06/13/23 09:20 Glucose 117 mg/dL (65-115) H 06/13/23 09:20 Calculated Osmolality 281 mOsm/kg (285-295) L 06/13/23 09:20 Calcium 8.5 mg/dL (8.5-10.5) 06/13/23 09:20 Total Bilirubin 1.0 mg/dL (0.15-1.2) 06/13/23 09:20 AST 24 U/L (0-32) 06/13/23 09:20 ALT 16 U/L (0-33) 06/13/23 09:20 Alkaline Phosphatase 174 U/L (35-105) H 06/13/23 09:20 Ammonia 50 umol/L (11-51) 06/13/23 09:20 Troponin T Baseline 22 ng/L (0-10) H 06/13/23 09:20 Troponin T 120 Minute 23.10 ng/L (0-10) H 06/13/23 11:22 Delta Troponin T 1.10 ABS# (0-10) 06/13/23 11:22 Total Protein 5.8 g/dL (6.6-8.7) L 06/13/23 09:20 Albumin 2.7 g/dL (3.5-5.2) L 06/13/23 09:20 Globulin 3.1 g/dL (1.3-4.6) 06/13/23 09:20 Urine Color Straw (Yellow) 06/13/23 10:38 Urine Appearance Clear (CLEAR) 06/13/23 10:38 Urine pH 9 (5-7) H 06/13/23 10:38 Ur Specific [place] 1.015 (1.005-1.030) 06/13/23 10:38 Urine Protein Neg (Negative) 06/13/23 10:38 Urine Glucose (UA) Norm (Normal) 06/13/23 10:38 Urine Ketones Negative (Negative) 06/13/23 10:38 Urine Blood Neg (Negative) 06/13/23 10:38 Urine Nitrate Negative (Negative) 06/13/23 10:38 Urine Bilirubin Neg (Negative) 06/13/23 10:38 Prot Sulfosalicylic Acd Cancelled 06/13/23 09:46 Urine Urobilinogen Neg mg/dL (Negative) 06/13/23 10:38 Ur Leukocyte Esterase 2+ (Negative) H 06/13/23 10:38 Urine RBC Rare /hpf (0-2) 06/13/23 10:38 Urine WBC 10-15 /hpf (0-5) H 06/13/23 10:38 Ur Squamous Epith Cells Rare /hpf (0-5) 06/13/23 10:38 Amorphous Sediment Not Reportable 06/13/23 10:38 Urine Bacteria Trace /hpf (NONE) 06/13/23 10:38 All radiology interpretation(s) finalized by discharge Discharge Plan Discharge Patient Disposition: Placed in Observation Admit Provider: Quiana Greene Clinical Impression: Anemia, Cystitis Coding Level of Care Code ED Room Service Bellhop for Paramjit Low
--- NOTE | 2023-06-13 08:59 | ECG_ITS ---
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 Measurements Intervals [place] Rate: 77 P: -16 SC: 127 QRS: 52 QRSD: 110 T: -1 QT: 354 QTc: 403 Interpretive Statements SINUS RHYTHM Compared to ECG 06/08/2023 19:22:26 T-wave abnormality no longer present Electronically Signed On 06-14-2023 9:46:56 MASTER CONTROL SUPERVISOR by Alban Cisneros M.D. [id number]
[2023-06-13 09:35] LABS: Basophils % 0.4 %; Eosinophils # 0.2 10^3/uL (0.0-0.8); Eosinophils % 8.8 %; Hematocrit 25.8 % (36-47); Lymphocytes # 0.4 10^3/uL (0.8-4.8); Lymphocytes % 17.5 %; Mean Corpuscular HGB Conc 30.6 g/dL (30-55); Mean Corpuscular Hemoglobin 31.1 pg (27-33); Mean Corpuscular Volume 101.6 fl (85-98); Mean Platelet Volume 11.2 fL (7.4-10.4); Monocytes # 0.4 10^3/uL (0.2-0.9); Monocytes % 17.5 %; Neutrophils % 55.8 %; Nucleated Red Blood Cells % 0 %; Platelet Count 52 10^3/cmm (157-399); Red Blood Count 2.54 10^6/uL (3.85-5.65); Red Cell Distribution Width 16.9 % (12.1-15.1); White Blood Count 2.51 10^3/uL (3.29-11.43)
[2023-06-13 09:47] LABS: INR 1.38 (0.8-1.2)
[2023-06-13 09:48] LABS: Partial Thromboplastin Time 31.3 SECONDS (23.9-36.7)
[2023-06-13 09:53] LABS: Troponin(5th) Baseline 22 ng/L (0-10)
[2023-06-13 09:55] LABS: Alanine Aminotransferase 16 U/L (0-33); Albumin Level 2.7 g/dL (3.5-5.2); Alkaline Phosphatase 174 U/L (35-105); Ammonia 50 umol/L (11-51); Anion Gap 11.1 (5-19); Aspartate Amino Transferase 24 U/L (0-32); Blood Urea Nitrogen 6 mg/dL (8-23); Calcium 8.5 mg/dL (8.5-10.5); Carbon Dioxide 32 mmol/L (22-29); Chloride 97 mmol/L (98-107); Creatinine Clr Calc Pharmacy 47.0164; Globulin 3.1 g/dL (1.3-4.6); Glucose 117 mg/dL (65-115); Osmolality Calculated 281 mOsm/kg (285-295); Potassium 4.1 mmol/L (3.5-5.1); Sodium 136 mmol/L (136-145); Total Protein 5.8 g/dL (6.6-8.7)
--- NOTE | 2023-06-13 10:39 | ECG_ITS ---
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 Measurements Intervals [place] Rate: 76 P: -12 WI: 112 QRS: 70 QRSD: 105 T: 19 QT: 381 QTc: 431 Interpretive Statements SINUS RHYTHM WITH SHORT WI INTERVAL NONSPECIFIC T-WAVE ABNORMALITY Compared to ECG 06/13/2023 08:59:06 Short [place] interval now present T-wave abnormality now present Electronically Signed On 06-14-2023 10:11:27 BIRTH ATTENDANT by Alban Cisneros M.D. [id number]
[2023-06-13 11:00] LABS: Urine Appearance Clear (CLEAR); Urine Color Straw (Yellow)
[2023-06-13 11:01] LABS: Add Urine Culture? No; Add Urine Microscopic? YES; Bacteria Urine TRACE /hpf; Bilirubin Urine Neg (Negative); Blood Urine Neg (Negative); Glucose Urine UA Norm (Normal); Ketones Urine Negative (Negative); Leukocyte Esterase Urine 2+ (Negative); Nitrate Urine Negative (Negative); Protein Urine Neg (Negative); RBC Urine RARE /hpf (0-2); Specific Gravity, Urine 1.015 (1.005-1.030); Squamous Epithelial Cell Urine RARE /hpf (0-5); Urobilinogen Urine Neg (Negative); pH Urine 9 (5-7)
--- NOTE | 2023-06-13 11:05 | PC.PHAR ---
pt is from [facility]-medications entered are from the pts blayne and rodríguez-joseph nurse from [facility] states the pts plavix and aspirin was dced 06/05/23-dr james wrote rx on 06/08/[address] lomax dced 06/09/23 that is one of the pts ivis-joseph states the pt has all am meds and states only prn she had was tylenol at 1:45
--- NOTE | 2023-06-13 14:37 | P.HP_ITS ---
Providers/Chief Complaint 2 Primary Care Provider: Sudheer Wood MD Chief Complaint: WEAKNESS History of Present Illness Daksha Machuca is a 83 year old female with past medical history of CAD, cirrhosis, dysphagia, CVA, PCI, NSTEMI, hypothyroidism, diabetes presents the emergency room with bloody stools. Patient will be admitted to the hospital for further medical management of GI bleed. This is patient's fourth admission for the same. At previous visit she was transferred to [place] for colorectal surgery. She ended up having another colonoscopy there. She had been in our hospital as well. Please see previous transfer summary for details. In conclusion patient recommended to set up for blood transfusions when hemoglobin less than 7 and for platelet transfusions as well. Today patient had a large bloody bowel movement at the long term and when she came to our ER she had another large bloody bowel movement. We are admitting her for transfusion purposes as observation at this time. Patient to follow-up with hematology as an outpatient after discharge. She denies abdominal pain. Vitals are stable. She has a mixture of dark and bright light bleeding per rectum. Hemoglobin 7.9 on admission today. Aspirin Plavix anticoagulants all stopped 2 hospital stays ago. Delta troponin negative at 2 hours. Urinalysis shows 10-15 white blood cells. She was in the ER on 08 June for UTI symptoms. Urine culture was obtained which showed Enterococcus. Resistant to everything except linezolid and gentamicin. Medications/Allergies Home Medications Medication Instructions Recorded Confirmed Last Taken Type polyethylene glycol 3350 17 17 gm PO DAILY@08/30/19 06/13/23 06/13/23 History gram/dose oral powder (Miralax) magnesium hydroxide 400 mg/5 mL 30 ml PO Q24H PRN Constipation 01/09/21 06/13/23 05/22/23 History oral suspension (Milk of Magnesia) sertraline 25 mg tablet 25 mg PO DAILY@08/22/21 06/13/23 06/13/23 History gabapentin 600 mg tablet 600 mg PO DAILY@09/24/21 06/13/23 05/22/23 History ondansetron HCl 4 mg tablet 4 mg PO Q4H PRN Nausea And Vomiting 09/24/21 06/13/23 Unknown History sennosides 8.6 mg-docusate sodium 2 tab PO BID@09/24/21 06/13/23/21/24 History 50 mg tablet (Stool Softener-Laxative) sodium phosphates 19 gram-7 118 ml SD DAILY PRN Constipation 09/24/21 06/13/23 Unknown History gram/118 mL enema (Fleet Enema) acetaminophen 325 mg tablet 650 mg PO Q4H PRN Pain 03/23/23 06/13/23 06/13/23 01:45 History calcium carbonate 500 mg calcium 500 mg PO BID 03/23/23 06/13/23 06/13/23 History (1,250 mg) chewable tablet furosemide 40 mg tablet 40 mg PO DAILY@07 03/23/23 06/13/23 06/13/23 History gabapentin 300 mg capsule 300 mg PO BID 03/23/23 06/13/23 06/13/23 History morphine 20 mg/5 mL (4 mg/mL) oral See Rx Instructions .Route 03/23/23 06/13/23 05/20/23 History solution .COMPLEX PRN Pain nitroglycerin 0.4 mg sublingual 0.4 mg sublingual Q5M PRN Chest 03/23/23 06/13/23 Unknown History tablet (Nitrostat) Pain albuterol sulfate 2.5 mg/3 mL 2.5 mg inhalation Q4H PRN FOR 5 05/23/23 06/13/23 04/25/23 History (0.083 %) solution for nebulization DAYS PER FAMILY REQUEST pantoprazole 40 mg tablet,delayed 40 mg PO DAILY@0630 05/23/23 06/13/23 06/13/23 History release vitamin A and D See Rx Instructions .Route .COMPLEX 05/23/23 06/13/23 05/22/23 History bisacodyl 10 mg rectal suppository 10 mg SD DAILY PRN Constipation 06/13/23 06/13/23 Unknown History budesonide 0.5 mg/2 mL suspension 0.5 mg inhalation Q12H 06/13/23 06/13/23 Unknown History for nebulization calcium polycarbophil 625 mg 625 mg PO DAILY@06/13/23 06/13/23 06/13/23 History tablet (Fiber-Lax) cocoa butter-shark liver oil 1 supp SD DAILY@18 06/13/23 06/13/23 Unknown History rectal suppository ferrous sulfate 325 mg (65 mg 325 mg PO DAILY@08 06/13/23 06/13/23 06/13/23 History iron) tablet lanolin alcohols-mineral See Rx Instructions .Route .COMPLEX 06/13/23 06/13/23 Unknown History oil-w.petrolatum-ceresin topical cream (Eucerin topical cream) loperamide 2 mg tablet (Imodium 2 mg PO Q6H PRN Diarrhea 06/13/23 06/13/23 Unknown History A-D) miconazole nitrate 2 % topical 1 applic topical Q8H PRN Itching 06/13/23 06/13/23 Unknown History cream multivitamin with iron 1 tab PO DAILY@07 06/13/23 06/13/23 06/13/23 History phenazopyridine 200 mg tablet 200 mg PO TID@08,12,1630 06/13/23 06/13/23 06/13/23 History (Pyridium) polyvinyl alcohol-povidone (PF) 1 drp ophthalmic (eye) TID@08,14,18 06/13/23 06/13/23 06/13/23 History 1.4 %-0.6 % eye drops in a dropperette (Refresh Classic (PF)) potassium chloride 20 mEq 20 meq PO DAILY@06/13/23 06/13/23 06/13/23 History tablet,extended release(part/cryst) (Klor-Con M) solifenacin 5 mg tablet (Vesicare) 5 mg PO DAILY@06/13/23 06/13/23 06/13/23 History spironolactone 100 mg tablet 100 mg PO DAILY@06/13/23 06/13/23 06/13/23 History zinc oxide 40 % topical ointment 1 applic topical BID 06/13/23 06/13/23 Unknown History Allergies Allergy/AdvReac Type Severity Reaction Status Date / Time amoxicillin Allergy Unknown Verified 06/13/23 08:56 cefepime Allergy Unknown Verified 06/13/23 08:56 ciprofloxacin [From Cipro] Allergy Unknown Verified 06/13/23 08:56 codeine Allergy Unknown Verified 06/13/23 08:56 Influenza Virus Vaccines Allergy Unknown Verified 06/13/23 08:56 iodine Allergy Unknown Verified 06/13/23 08:56 Quinolones Allergy Unknown Verified 06/13/23 08:56 Sulfa (Sulfonamide Allergy Unknown Verified 06/13/23 08:56 Antibiotics) Sulfonylureas Allergy Unknown Verified 06/13/23 08:56 PFSH Acute 2 PFSH: Medical History Cirrhosis Bacteremia Thrombocytopenia Diabetes Gout Hypothyroidism Acute UTI Non-ST elevation [place] (NSTEMI) Confusion Urolithiasis Retained ureteral stent Cystitis cystica History of CVA (cerebrovascular accident) GERD (gastroesophageal reflux disease) Peripheral artery disease Hypertension Chronic back pain Osteoarthritis Polyneuropathy Post herpetic neuralgia CAD in [place] artery Chronic cystitis Surgical History H/O bladder repair surgery S/P tonsillectomy Hip fracture History of cataract surgery History of cholecystectomy H/O: hysterectomy Family History Other Renal cancer Social History Smoking and tobacco/nicotine status: never used tobacco/nicotine Alcohol intake: never Substance/Drug Use: never Adopted: No Caregiver/support person: No Lives independently: No Housing: Long Term Marital status: Current occupational status: retired Current gender identity: Female Vitals/I&O/Wt Last Vital Signs Temp 98.7 F 06/13/23 08:48 Pulse 75 06/13/23 11:00 Resp 19 H 06/13/23 10:30 BP 118/56 06/13/23 11:00 Pulse Ox 99 06/13/23 10:30 O2 Del Method Room Air 06/13/23 10:30 Weight last 48 hrs Weight 68.039 kg Physical Exam 2 Narrative: General: No acute distress, AO x 3 on room air at this time. HEENT: PERRLA, pupils bilaterally equal and reactive Chest: Normal vesicular breath sounds, no added sounds, equal good air entry bilaterally CVS: S1-S2 regular, no murmurs, no tachycardia, no gallops, no rubs Abdomen: Soft,, nontender soft, bowel sounds positive, no rebound or guarding., nontender Neuro: No focal deficits. Data 06/13/23 09:20 06/13/23 09:20 A&P Assessment and plan (1) CAD in [place] artery: (2) Thrombocytopenia: (3) Dysphagia: (4) Cirrhosis: (5) Cystitis: (6) Anemia: (7) Bright red blood per rectum: Plan #Bright red blood per rectum Most likely due to hemorrhoidal bleed #Acute on chronic anemia #Thrombocytopenia secondary to liver disease #Known history of liver cirrhosis #Hepatic coagulopathy #History of CAD #Hypertension #Dysphagia?previous admission modified barium swallow showed aspiration with thin liquids. Will place on dysphagia diet. #UTI Enterococcus faecium -Type and screen ? Transfused 2 units packed RBC ? CBC every 12H ? Transfuse platelets as needed ? Patient seen by Dr. Woodward in the hospital at previous visit. She is to follow-up with him as an outpatient after discharge ? Patient does not have a chronic Adam. Urine culture positive. Will place on linezolid. -Continue home medications. ? Plan to send her to long term as long as hemoglobin is stable. ? Patient will have recurrent readmissions for bright red blood per rectum. She has had extensive GI workup done at [facility]. ? Possibly outpatient blood and platelet transfusions need to be set up for her at the infusion center to avoid admissions in the future. DNR/DNI SCDs Attestations 2 Medical Necessity Statement*: observation for blood transfusion Diagnoses CAD in [place] artery I25.10 Thrombocytopenia D69.6 Dysphagia R13.10 Cirrhosis K74.60 Cystitis N30.90 Anemia D64.9 Bright red blood per rectum K62.5
--- NOTE | 2023-06-13 14:49 | ECG_ITS ---
[facility] Test Date: 2023-06-13 Pat Name: Daksha Machuca Department: Room: Gender: Female Hospital Aide: : 1940 Requested By: Jamie Millan Order Number: [id number] Reading MD: Alban Cisneros M.D. Measurements Intervals [place] Rate: 75 P: 22 NH: 129 QRS: 56 QRSD: 89 T: -5 QT: 368 QTc: 413 Interpretive Statements SINUS RHYTHM NONSPECIFIC T-WAVE ABNORMALITY Compared to ECG 06/13/2023 10:39:39 Short [place] interval no longer present T-wave abnormality still present Electronically Signed On 06-14-2023 10:11:36 SENIOR INTEGRATION DEVELOPER by Alban Cisneros M.D. [id number]
[2023-06-13] MEDS: sodium chloride 0.9% 100 mL Bag 50 ML IV (14:52)
[2023-06-13] MEDS: sodium chloride 0.9% 1,000 ML 100 ML IV (17:27)
[2023-06-13] MEDS: gabapentin 300 mg Capsule PO (17:28)
[2023-06-13 21:14] LABS: Basophils % 0.8 %; Eosinophils # 0.2 10^3/uL (0.0-0.8); Eosinophils % 7.5 %; Hematocrit 30.7 % (36-47); Lymphocytes # 0.4 10^3/uL (0.8-4.8); Mean Corpuscular HGB Conc 30.9 g/dL (30-55); Mean Corpuscular Hemoglobin 30.6 pg (27-33); Mean Platelet Volume 11.2 fL (7.4-10.4); Monocytes # 0.3 10^3/uL (0.2-0.9); Monocytes % 13.4 %; Neutrophils # 1.43 10^3/uL (1.8-7.7); Neutrophils % 59.9 %; Nucleated Red Blood Cells % 0 %; Platelet Count 47 10^3/cmm (157-399); Red Cell Distribution Width 17.9 % (12.1-15.1); White Blood Count 2.39 10^3/uL (3.29-11.43)
[2023-06-13] MEDS: budesonide 0.5 mg/2 mL Neb INHALATION (21:18)
[2023-06-13 21:31] LABS: Troponin 5 6HR 29.12 ng/L (0-10)
[2023-06-13 21:36] LABS: Troponin 5 6HR Delta 7.12 ng/L (0-12)
[2023-06-14] VITALS (7 sets, daily range): BP systolic 111–132; BP diastolic 52–66; PULSE 71–80; RESP 16–19; TEMP 36.7–37.5; O2SAT 93–96
[2023-06-14] MEDS: acetaminophen 325 mg Tablet 650 MG PO ×3 (00:53→17:33)
[2023-06-14] MEDS: sodium chloride 0.9% 1,000 ML 100 ML IV ×3 (04:00→23:59)
[2023-06-14 06:08] LABS: Alanine Aminotransferase 14 U/L (0-33); Albumin Level 2.4 g/dL (3.5-5.2); Alkaline Phosphatase 148 U/L (35-105); Anion Gap 9.7 (5-19); Aspartate Amino Transferase 20 U/L (0-32); Blood Urea Nitrogen 6 mg/dL (8-23); Calcium 8.1 mg/dL (8.5-10.5); Carbon Dioxide 30 mmol/L (22-29); Chloride 104 mmol/L (98-107); Globulin 3.2 g/dL (1.3-4.6); Glucose 85 mg/dL (65-115); Magnesium 1.6 mg/dL (1.7-2.3); Osmolality Calculated 287 mOsm/kg (285-295); Potassium 3.7 mmol/L (3.5-5.1); Sodium 140 mmol/L (136-145); Total Bilirubin 1.9 mg/dL (0.15-1.2); Total Protein 5.6 g/dL (6.6-8.7)
[2023-06-14] MEDS: sertraline 50 mg Tablet 25 MG PO (06:11)
[2023-06-14] MEDS: FUROsemide 40 mg Tablet PO (06:11)
[2023-06-14] MEDS: ferrous sulfate EC 325 mg Tablet PO (07:37)
[2023-06-14] MEDS: spironolactone 25 mg Tablet 100 MG PO (07:37)
[2023-06-14] MEDS: pantoprazole DR 40 mg Tablet PO (08:08)
[2023-06-14] MEDS: gabapentin 300 mg Capsule PO ×2 (08:08→17:33)
[2023-06-14] MEDS: budesonide 0.5 mg/2 mL Neb INHALATION (09:04)
[2023-06-14 12:40] LABS: Basophils % 0.9 %; Eosinophils # 0.2 10^3/uL (0.0-0.8); Eosinophils % 9.3 %; Hematocrit 28.6 % (36-47); Lymphocytes # 0.5 10^3/uL (0.8-4.8); Lymphocytes % 23.8 %; Mean Corpuscular HGB Conc 30.8 g/dL (30-55); Mean Corpuscular Hemoglobin 30.8 pg (27-33); Mean Platelet Volume 12.2 fL (7.4-10.4); Monocytes # 0.4 10^3/uL (0.2-0.9); Monocytes % 16.4 %; Neutrophils # 1.06 10^3/uL (1.8-7.7); Neutrophils % 49.6 %; Nucleated Red Blood Cells % 0 %; Platelet Count 53 10^3/cmm (157-399); Red Blood Count 2.86 10^6/uL (3.85-5.65); Red Cell Distribution Width 18.2 % (12.1-15.1); White Blood Count 2.14 10^3/uL (3.29-11.43)
--- NOTE | 2023-06-14 23:27 | PM.PN ---
Subjective Subjective: continues to have 2 bloody BM today , no dizziness Medications: Reviewed: Yes Vitals/I&O/Wt Last Vital Signs Temp 98.9 F 06/14/23 20:00 Pulse 75 06/14/23 20:00 Resp 18 06/14/23 20:00 BP 126/57 06/14/23 20:00 Pulse Ox 94 06/14/23 20:00 O2 Del Method Room Air 06/14/23 20:00 06/14/23 06/14/23 06/15/23 14:59 22:59 06:59 Intake Total 1460 / 1460 360 / 1820 Balance 1460 / 1460 360 / 1820 Weight last 48 hrs Weight 66.678 kg Weight 65.572 kg Weight 68.039 kg Physical Exam Narrative: General: No acute distress, AO x3 HEENT: PERRLA, pupils bilaterally equal and reactive, pallors not present Chest: Normal vesicular breath sounds, no added sounds, equal good air entry bilaterally CVS: S1-S2 regular, no murmurs, no tachycardia, no gallops, no rubs Abdomen: Soft, nontender, no organomegaly, bowel sounds present Data 06/14/23 05:22 06/14/23 05:22 A&P Assessment and plan (1) CAD in [place] artery: (2) Thrombocytopenia: (3) Dysphagia: (4) Cirrhosis: (5) Cystitis: (6) Anemia: (7) Bright red blood per rectum: Plan #Bright red blood per rectum Most likely due to hemorrhoidal bleed #Acute on chronic anemia #Thrombocytopenia secondary to liver disease #Known history of liver cirrhosis #Hepatic coagulopathy #History of CAD #Hypertension #Dysphagia?previous admission modified barium swallow showed aspiration with thin liquids. Will place on dysphagia diet. #UTI Enterococcus faecium -Type and screen ? Transfused 2 units packed RBC ? CBC every 12H ? Transfuse platelets as needed ? Patient seen by Dr. Woodward in the hospital at previous visit. She is to follow-up with him as an outpatient after discharge ? Patient does not have a chronic Adam. Urine culture positive. Will place on linezolid. -Continue home medications. ? Plan to send her [facility] as long as hemoglobin is stable. ? Patient will have recurrent readmissions for bright red blood per rectum. She has had extensive GI workup done at [facility]. ? Possibly outpatient blood and platelet transfusions need to be set up for her at the infusion center to avoid admissions in the future. DNR/DNI SCDs Patient has had 2 bloody BM today. Hb was stable this am. Recheck now and continue q12h check while bleeding continues. Source not evident in spite of recent GI w/up. Attestations Medical Necessity Statement*: continued bloody BM, closely monitor serial Hb checks until continuig bleed Coding Level of Care Code Acute Code for Chg Fwd Diagnoses CAD in [place] artery I25.10 Thrombocytopenia D69.6 Dysphagia R13.10 Cirrhosis K74.60 Cystitis N30.90 Anemia D64.9 Bright red blood per rectum K62.5
[2023-06-14 23:42] LABS: Basophils % 0.4 %; Eosinophils # 0.2 10^3/uL (0.0-0.8); Eosinophils % 9.6 %; Hematocrit 25.6 % (36-47); Lymphocytes # 0.5 10^3/uL (0.8-4.8); Lymphocytes % 22.7 %; Mean Corpuscular Hemoglobin 31.3 pg (27-33); Mean Corpuscular Volume 97.7 fl (85-98); Mean Platelet Volume 10.6 fL (7.4-10.4); Monocytes # 0.4 10^3/uL (0.2-0.9); Monocytes % 16.6 %; Neutrophils # 1.16 10^3/uL (1.8-7.7); Neutrophils % 50.7 %; Nucleated Red Blood Cells % 0 %; Platelet Count 51 10^3/cmm (157-399); Red Blood Count 2.62 10^6/uL (3.85-5.65); Red Cell Distribution Width 18.3 % (12.1-15.1); White Blood Count 2.29 10^3/uL (3.29-11.43)
[2023-06-15] VITALS (13 sets, daily range): BP systolic 121–157; BP diastolic 51–71; PULSE 73–99; RESP 14–19; TEMP 36.3–37.2; O2SAT 93–98; BMI 28.0
[2023-06-15 00:03] LABS: Alanine Aminotransferase 13 U/L (0-33); Albumin Level 2.3 g/dL (3.5-5.2); Alkaline Phosphatase 138 U/L (35-105); Anion Gap 11.3 (5-19); Aspartate Amino Transferase 18 U/L (0-32); Blood Urea Nitrogen 9 mg/dL (8-23); Calcium 7.9 mg/dL (8.5-10.5); Carbon Dioxide 26 mmol/L (22-29); Chloride 106 mmol/L (98-107); Glucose 103 mg/dL (65-115); Osmolality Calculated 289 mOsm/kg (285-295); Potassium 3.3 mmol/L (3.5-5.1); Sodium 140 mmol/L (136-145); Total Bilirubin 1.1 mg/dL (0.15-1.2); Total Protein 5.3 g/dL (6.6-8.7)
[2023-06-15] MEDS: acetaminophen 325 mg Tablet 650 MG PO ×2 (04:48→20:21)
[2023-06-15] MEDS: sertraline 50 mg Tablet 25 MG PO (06:18)
[2023-06-15] MEDS: FUROsemide 40 mg Tablet PO (06:18)
[2023-06-15] MEDS: spironolactone 25 mg Tablet 100 MG PO (07:27)
[2023-06-15] MEDS: sennosides-docusate Tablet 2 TAB PO (07:27)
[2023-06-15] MEDS: pantoprazole DR 40 mg Tablet PO (07:27)
[2023-06-15] MEDS: ferrous sulfate EC 325 mg Tablet PO (07:27)
[2023-06-15] MEDS: gabapentin 300 mg Capsule PO ×2 (07:28→17:02)
[2023-06-15] MEDS: budesonide 0.5 mg/2 mL Neb INHALATION (08:14)
[2023-06-15] MEDS: sodium chloride 0.9% 1,000 ML 100 ML IV (10:28)
--- NOTE | 2023-06-15 11:30 | PM.TDS ---
Transfer Summary Providers Date of Admission: 06/14/23 23:30 Date of Discharge/Transfer: 06/15/23 Attending Provider at Admission: Quiana Greene MD Attending Provider at Transfer: Benita Perry MD Primary Care Provider: Sudheer Wood MD Transfer Plans: Anticipated date of transfer: 06/15/23. Diagnoses at Discharge Discharge Diagnosis (1) CAD in [place] artery: Status: Acute (2) Thrombocytopenia: Status: Acute (3) Dysphagia: Status: Acute (4) Cirrhosis: Status: Acute (5) Cystitis: Status: Acute (6) Anemia: Status: Acute (7) Bright red blood per rectum: Status: Resolved Reason for Visit Reason for Visit WEAKNESS Hospital Course Hospital Course Ms. Machuca is an 83-year-old lady with a past medical history of cerebrovascular disease, hypothyroidism, and liver cirrhosis, chronic thrombocytopenia with baseline platelet count between 70-80,000 but much lower since May of this year. Most recent platelet count is at 51,000 this morning. She has had issues with recurrent rectal bleeding since April 2023. She was admitted here on May 23, 2023 because of rectal bleeding. She underwent sigmoidoscopy which had shown a few small diverticula in the sigmoid colon. Her scope was unable to be traversed beyond the sigmoid colon by general surgery and she was transferred to [facility] for further care due to suspicion for underlying and inability to scope any further. Per patient's history it appears she saw colorectal surgery there, colonoscopy was able to be completed however no obvious source was found. I do not have the records for review directly at this time. Her dual antiplatelets were stopped and she was discharged back to longterm with recommendations to keep a check on her thrombocytopenia and hemoglobin. Patient returned to the hospital on June 13, 2022 with rectal bleeding and passage of blood clots via the rectum. She received 1 unit of packed red blood cell on the day of admission. Hemoglobin has trended down from 9.5-8.2. She continues to have significant bleeding. She is being transferred to [facility] as beyond this point she would need to be evaluated by gastroenterology for ongoing bleeding. Possibility of IR embolization not excluded if continues to have persistent bleed. Patient is currently hemodynamically stable. Last blood pressure 130/60 mmHg. Heart rate of 77. Respiratory rate of 19. Afebrile. Saturating 94% on room air. Making her n.p.o. for impending transfer and need for possible colonoscopy. She denies any current complaints of chest pain dyspnea palpitations dizziness or syncope. Physical Exam Narrative: General: No acute distress, AO x3 HEENT: PERRLA, pupils bilaterally equal and reactive, pallors not present Chest: Normal vesicular breath sounds, no added sounds, equal good air entry bilaterally CVS: S1-S2 regular, no murmurs, no tachycardia, no gallops, no rubs Abdomen: Soft, nontender, no organomegaly, bowel sounds present Neuro: No focal deficits, no facial deformity, AO x3, power 5/5 in all limbs TS Data Studies Completed and Pending Pending at discharge Category Date Time Status CBC Auto Diff [Complete Blood Count w/Auto] Q12H Lab 06/15/23 11:26 Ordered CBC Auto Diff [Complete Blood Count w/Auto] Q12H Lab 06/15/23 23:26 Ordered CBC Auto Diff [Complete Blood Count w/Auto] Q12H Lab 06/16/23 11:26 Ordered CBC Auto Diff [Complete Blood Count w/Auto] Q12H Lab 06/16/23 23:26 Ordered Leukocyte Reduced RBC Stat Lab 06/13/23 12:11 Results Type and Screen Routine Lab 06/13/23 12:11 Results Completed Studies During Hospitalization Category Date Time Status XR chest 1V portable [id number] Stat Exams 06/13/23 08:49 Completed Laboratory Last Values WBC 2.29 10^3/uL (3.29-11.43) L 06/14/23 23:35 RBC 2.62 10^6/uL (3.85-5.65) L 06/14/23 23:35 Hgb 8.20 g/dL (11.27-16.99) L 06/14/23 23:35 Hct 25.6 % (36-47) L 06/14/23 23:35 MCV 97.7 fl (85-98) 06/14/23 23:35 MCH 31.3 pg (27-33) 06/14/23 23:35 MCHC 32.0 g/dL (30-55) 06/14/23 23:35 RDW 18.3 % (12.1-15.1) H 06/14/23 23:35 Plt Count 51 10^3/cmm (157-399) L 06/14/23 23:35 MPV 10.6 fL (7.4-10.4) H 06/14/23 23:35 Neut % (Auto) 50.7 % 06/14/23 23:35 Lymph % (Auto) 22.7 % 06/14/23 23:35 [place] % (Auto) 16.6 % 06/14/23 23:35 Eos % (Auto) 9.6 % 06/14/23 23:35 Baso % (Auto) 0.4 % 06/14/23 23:35 Neut # (Auto) 1.16 10^3/uL (1.8-7.7) L 06/14/23 23:35 Lymph # (Auto) 0.5 10^3/uL (0.8-4.8) L 06/14/23 23:35 [place] # (Auto) 0.4 10^3/uL (0.2-0.9) 06/14/23 23:35 Eos # (Auto) 0.2 10^3/uL (0.0-0.8) 06/14/23 23:35 Baso # (Auto) 0.0 10^3/uL (0.0-0.1) 06/14/23 23:35 Nucleated RBC % (auto) 0 % 06/14/23 23:35 Nucleated RBCs # 0.0 /100WBC 06/14/23 23:35 PT 17.40 SECONDS (12.1-14.9) H 06/13/23 09:20 INR 1.38 (0.8-1.2) H 06/13/23 09:20 APTT 31.3 SECONDS (23.9-36.7) 06/13/23 09:20 Sodium 140 mmol/L (136-145) 06/14/23 23:35 Potassium 3.3 mmol/L (3.5-5.1) L 06/14/23 23:35 Chloride 106 mmol/L (98-107) 06/14/23 23:35 Carbon Dioxide 26 mmol/L (22-29) 06/14/23 23:35 Anion Gap 11.3 (5-19) 06/14/23 23:35 BUN 9 mg/dL (8-23) 06/14/23 23:35 Creatinine 0.6 mg/dL (0.5-0.9) 06/14/23 23:35 GFR Calculation Not Reportable 06/14/23 23:35 Glucose 103 mg/dL (65-115) 06/14/23 23:35 Calculated Osmolality 289 mOsm/kg (285-295) 06/14/23 23:35 Calcium 7.9 mg/dL (8.5-10.5) L 06/14/23 23:35 Magnesium 1.6 mg/dL (1.7-2.3) L 06/14/23 05:22 Total Bilirubin 1.1 mg/dL (0.15-1.2) 06/14/23 23:35 AST 18 U/L (0-32) 06/14/23 23:35 ALT 13 U/L (0-33) 06/14/23 23:35 Alkaline Phosphatase 138 U/L (35-105) H 06/14/23 23:35 Ammonia 50 umol/L (11-51) 06/13/23 09:20 Troponin T Baseline 22 ng/L (0-10) H 06/13/23 09:20 Troponin T 120 Minute 23.10 ng/L (0-10) H 06/13/23 11:22 Delta Troponin T 1.10 ABS# (0-10) 06/13/23 11:22 Troponin T Hi Sens 6Hr 29.12 ng/L (0-10) H 06/13/23 20:30 Troponin T Hi Sens 6Hr Delta 7.12 ng/L (0-12) 06/13/23 20:30 Total Protein 5.3 g/dL (6.6-8.7) L 06/14/23 23:35 Albumin 2.3 g/dL (3.5-5.2) L 06/14/23 23:35 Globulin 3.0 g/dL (1.3-4.6) 06/14/23 23:35 Urine Color Straw (Yellow) 06/13/23 10:38 Urine Appearance Clear (CLEAR) 06/13/23 10:38 Urine pH 9 (5-7) H 06/13/23 10:38 Ur Specific [place] 1.015 (1.005-1.030) 06/13/23 10:38 Urine Protein Neg (Negative) 06/13/23 10:38 Urine Glucose (UA) Norm (Normal) 06/13/23 10:38 Urine Ketones Negative (Negative) 06/13/23 10:38 Urine Blood Neg (Negative) 06/13/23 10:38 Urine Nitrate Negative (Negative) 06/13/23 10:38 Urine Bilirubin Neg (Negative) 06/13/23 10:38 Prot Sulfosalicylic Acd Cancelled 06/13/23 09:46 Urine Urobilinogen Neg mg/dL (Negative) 06/13/23 10:38 Ur Leukocyte Esterase 2+ (Negative) H 06/13/23 10:38 Urine RBC Rare /hpf (0-2) 06/13/23 10:38 Urine WBC 10-15 /hpf (0-5) H 06/13/23 10:38 Ur Squamous Epith Cells Rare /hpf (0-5) 06/13/23 10:38 Amorphous Sediment Not Reportable 06/13/23 10:38 Urine Bacteria Trace /hpf (NONE) 06/13/23 10:38 Blood Type O Positive 06/13/23 12:11 Rho(D) Type Rh positive 06/13/23 12:11 Antibody Screen Negative 06/13/23 12:11 Crossmatch See Detail 06/13/23 12:11 Radiology Impressions Chest X-Ray 06/13/23 08:49 IMPRESSION: Chronic appearing changes in left hemithorax with round atelectasis, volume loss and pleural effusion. Small right pleural effusion with atelectatic changes. These findings are similar to previous study. Superimposed infection not excluded. Recent Clincial Data Last Vital Signs Temp 97.4 F L 06/15/23 08:23 Pulse 77 06/15/23 08:23 Resp 19 H 06/15/23 08:23 BP 138/54 06/15/23 08:23 Pulse Ox 94 06/15/23 08:23 O2 Del Method Room Air 06/15/23 08:23 Vital Signs Temp Pulse Resp BP Pulse Ox O2 Del Method 06/15/23 08:23 97.4 F L 77 19 H 138/54 94 Room Air 06/15/23 08:15 92 16 94 Room Air 06/15/23 04:00 98.3 F 99 16 134/71 93 Room Air 06/15/23 00:00 98.4 F 73 18 124/63 96 Room Air Intake & Output/Weight 06/13/23 06/14/23 06/15/23 06/16/23 06:59 06:59 06:59 06:59 Intake Total 1000 / 1000 2820 / 2820 1360 / 1360 Balance 1000 / 1000 2820 / 2820 1360 / 1360 Weight 66.678 kg 67.302 kg Vitals Last Vital Signs Temp 97.4 F L 06/15/23 08:23 Pulse 77 06/15/23 08:23 Resp 19 H 06/15/23 08:23 BP 138/54 06/15/23 08:23 Pulse Ox 94 06/15/23 08:23 O2 Del Method Room Air 06/15/23 08:23 TS Medications Medications Acetaminophen (Acetaminophen 325 Mg Tablet) 650 mg PO Q6H PRN PRN Reason: Mild/Mod Pain Or Temp >/= 101 Last Admin: 06/15/23 04:48 Dose: 650 mg Budesonide (Budesonide 0.5 Mg/2 Ml Neb) 0.5 mg INHALATION BID.RESPIRATORY [facility] Last Admin: 06/15/23 08:14 Dose: 0.5 mg Ferrous Sulfate (Ferrous Sulfate Ec 325 Mg Tablet) 325 mg PO DAILY@08 [facility] Last Admin: 06/15/23 07:27 Dose: 325 mg Furosemide (Furosemide 40 Mg Tablet) 40 mg PO DAILY@07 [facility] Last Admin: 06/15/23 06:18 Dose: 40 mg Gabapentin (Gabapentin 300 Mg Capsule) 300 mg PO BID [facility] Last Admin: 06/15/23 07:28 Dose: 300 mg Sodium Chloride (Sodium Chloride 0.9%) 1,000 mls @ 100 mls/hr IV .Q10H [facility] Last Admin: 06/15/23 10:28 Dose: 100 mls/hr Lanolin (Lanolin Oint 7 Gm) 1 applic TOPICAL PRN PRN PRN Reason: DRYNESS Non-Formulary Medication (Solifenacin [Vesicare]) 5 mg PO DAILY@07 [facility] Last Admin: 06/15/23 06:18 Dose: Not Given Ondansetron HCl (Ondansetron 2 Mg/Ml Sdv 2 Ml) 4 mg IVP Q8H PRN PRN Reason: vomiting, or N/V if npo Pantoprazole Sodium (Pantoprazole Dr 40 Mg Tablet) 40 mg PO DAILY [facility] Last Admin: 06/15/23 07:27 Dose: 40 mg Polyethylene Glycol (Polyethylene Glycol 3350 Pkt 17 Gm) 17 gm PO DAILY@07 [facility] Last Admin: 06/15/23 06:16 Dose: Not Given Senna/Docusate Sodium (Sennosides-Docusate Tablet) 2 tab PO BID@ [facility] Last Admin: 06/15/23 07:27 Dose: 2 tab Sertraline HCl (Sertraline 50 Mg Tablet) 25 mg PO DAILY@07 [facility] Last Admin: 06/15/23 06:18 Dose: 25 mg Sodium Chloride (Sodium Chloride 0.9% 100 Ml Bag) 50 ml IV PRN PRN PRN Reason: Blood transfusion prime and flush Stop: 06/16/23 10:31 Spironolactone (Spironolactone 25 Mg Tablet) 100 mg PO DAILY@ [facility] Last Admin: 06/15/23 07:27 Dose: 100 mg Discontinued Medications Acetaminophen (Acetaminophen 325 Mg Tablet) 650 mg PO Q6H PRN PRN Reason: Mild/Mod Pain Or Temp >/= 101 Budesonide (Budesonide 0.5 Mg/2 Ml Neb) 0.5 mg INHALATION Q12H [facility] Sodium Chloride (Sodium Chloride 0.9% 100 Ml Bag) 50 ml IV PRN PRN PRN Reason: Blood transfusion prime and flush Stop: 06/14/23 11:35 Last Admin: 06/13/23 14:52 Dose: 50 ml Allergies amoxicillin Allergy (Verified 06/13/23 08:56) Unknown cefepime Allergy (Verified 06/13/23 08:56) Unknown ciprofloxacin [From Cipro] Allergy (Verified 06/13/23 08:56) Unknown codeine Allergy (Verified 06/13/23 08:56) Unknown Influenza Virus Vaccines Allergy (Verified 06/13/23 08:56) Unknown iodine Allergy (Verified 06/13/23 08:56) Unknown Quinolones Allergy (Verified 06/13/23 08:56) Unknown Sulfa (Sulfonamide Antibiotics) Allergy (Verified 06/13/23 08:56) Unknown Sulfonylureas Allergy (Verified 06/13/23 08:56) Unknown Home Medications polyethylene glycol 3350 17 gram/dose oral powder (Miralax) 17 gm PO DAILY@07 08/30/19 [History Confirmed 06/13/23] magnesium hydroxide 400 mg/5 mL oral suspension (Milk of Magnesia) 30 ml PO Q24H PRN Constipation 01/09/21 [History Confirmed 06/13/23] sertraline 25 mg tablet 25 mg PO DAILY@07 08/22/21 [History Confirmed 06/13/23] gabapentin 600 mg tablet 600 mg PO DAILY@18 09/24/21 [History Confirmed 06/13/23] ondansetron HCl 4 mg tablet 4 mg PO Q4H PRN Nausea And Vomiting 09/24/21 [History Confirmed 06/13/23] sennosides 8.6 mg-docusate sodium 50 mg tablet (Stool Softener-Laxative) 2 tab PO BID@08,20 09/24/21 [History Confirmed 06/13/23] sodium phosphates 19 gram-7 gram/118 mL enema (Fleet Enema) 118 ml NH DAILY PRN Constipation 09/24/21 [History Confirmed 06/13/23] acetaminophen 325 mg tablet 650 mg PO Q4H PRN Pain 03/23/23 [History Confirmed 06/13/23] calcium carbonate 500 mg calcium (1,250 mg) chewable tablet 500 mg PO BID 03/23/23 [History Confirmed 06/13/23] furosemide 40 mg tablet 40 mg PO DAILY@07 03/23/23 [History Confirmed 06/13/23] gabapentin 300 mg capsule 300 mg PO BID 03/23/23 [History Confirmed 06/13/23] morphine 20 mg/5 mL (4 mg/mL) oral solution See Rx Instructions .Route .COMPLEX PRN Pain 03/23/23 [History Confirmed 06/13/23] nitroglycerin 0.4 mg sublingual tablet (Nitrostat) 0.4 mg sublingual Q5M PRN Chest Pain 03/23/23 [History Confirmed 06/13/23] albuterol sulfate 2.5 mg/3 mL (0.083 %) solution for nebulization 2.5 mg inhalation Q4H PRN FOR 5 DAYS PER FAMILY REQUEST 05/23/23 [History Confirmed 06/13/23] pantoprazole 40 mg tablet,delayed release 40 mg PO DAILY@0630 05/23/23 [History Confirmed 06/13/23] vitamin A and D See Rx Instructions .Route .COMPLEX 05/23/23 [History Confirmed 06/13/23] bisacodyl 10 mg rectal suppository 10 mg NH DAILY PRN Constipation 06/13/23 [History Confirmed 06/13/23] budesonide 0.5 mg/2 mL suspension for nebulization 0.5 mg inhalation Q12H 06/13/23 [History Confirmed 06/13/23] calcium polycarbophil 625 mg tablet (Fiber-Lax) 625 mg PO DAILY@06/13/23 [History Confirmed 06/13/23] cocoa butter-shark liver oil rectal suppository 1 supp NH DAILY@18 06/13/23 [History Confirmed 06/13/23] ferrous sulfate 325 mg (65 mg iron) tablet 325 mg PO DAILY@06/13/23 [History Confirmed 06/13/23] lanolin alcohols-mineral oil-w.petrolatum-ceresin topical cream (Eucerin topical cream) See Rx Instructions .Route .COMPLEX 06/13/23 [History Confirmed 06/13/23] loperamide 2 mg tablet (Imodium A-D) 2 mg PO Q6H PRN Diarrhea 06/13/23 [History Confirmed 06/13/23] miconazole nitrate 2 % topical cream 1 applic topical Q8H PRN Itching 06/13/23 [History Confirmed 06/13/23] multivitamin with iron 1 tab PO DAILY@06/13/23 [History Confirmed 06/13/23] phenazopyridine 200 mg tablet (Pyridium) 200 mg PO TID@08,12,1630 06/13/23 [History Confirmed 06/13/23] polyvinyl alcohol-povidone (PF) 1.4 %-0.6 % eye drops in a dropperette (Refresh Classic (PF)) 1 drp ophthalmic (eye) TID@08,14,18 06/13/23 [History Confirmed 06/13/23] potassium chloride 20 mEq tablet,extended release(part/cryst) (Klor-Con M) 20 meq PO DAILY@06/13/23 [History Confirmed 06/13/23] solifenacin 5 mg tablet (Vesicare) 5 mg PO DAILY@06/13/23 [History Confirmed 06/13/23] spironolactone 100 mg tablet 100 mg PO DAILY@06/13/23 [History Confirmed 06/13/23] zinc oxide 40 % topical ointment 1 applic topical BID 06/13/23 [History Confirmed 06/13/23] Discharge Plan Discharge Patient Disposition: Xfer Other Condition: Stable Prescriptions: No Action magnesium hydroxide [Milk of Magnesia] 400 mg/5 mL suspension 30 ml PO Q24H PRN (Reason: Constipation) sertraline 25 mg tablet 25 mg PO DAILY@07 polyethylene glycol 3350 [Miralax] 17 gram/dose powder 17 gm PO DAILY@07 furosemide 40 mg tablet 40 mg PO DAILY@07 acetaminophen 325 mg Tablet 650 mg PO Q4H PRN (Reason: Pain) gabapentin 300 mg capsule 300 mg PO BID morphine 20 mg/5 mL (4 mg/mL) Solution See Rx Instructions .ROUTE .COMPLEX PRN (Reason: Pain) Rx Instructions: 0.25 ml PO EVERY 2 HOURS NEEDED FOR PAIN nitroglycerin [Nitrostat] 0.4 mg Tablet, Sublingual 0.4 mg SUBLINGUAL Q5M PRN (Reason: Chest Pain) Rx Instructions: do not exceed 3 doses per episode calcium carbonate 500 mg calcium (1,250 mg) Tablet,Chewable 500 mg PO BID miconazole nitrate 2 % Cream 1 applic TOPICAL Q8H PRN (Reason: Itching) phenazopyridine [Pyridium] 200 mg Tablet 200 mg PO TID@08,12,1630 spironolactone 100 mg Tablet 100 mg PO DAILY@08 Imodium A-D 2 mg Tablet 2 mg PO Q6H PRN (Reason: Diarrhea) bisacodyl 10 mg Suppository 10 mg [place] DAILY PRN (Reason: Constipation) ferrous sulfate 325 mg (65 mg iron) Tablet 325 mg PO DAILY@08 budesonide 0.5 mg/2 mL Suspension For Nebulization 0.5 mg inhalation Q12H Preparation H Suppository 1 supp [place] DAILY@18 multivitamin with iron Tablet 1 tab PO DAILY@07 Refresh Classic (PF) 1.4-0.6 % Dropperette 1 drp ophthalmic (eye) TID@08,14,18 Eucerin Cream See Rx Instructions .ROUTE .COMPLEX Rx Instructions: APPLY TO ABDOMEN TOPICALLY NEEDED FOR DRY SKIN zinc oxide 40 % Ointment 1 applic TOPICAL BID potassium chloride [Klor-Con M20] 20 mEq tablet,ER particles/crystals 20 meq PO DAILY@07 calcium polycarbophil [Fiber-Lax] 625 mg tablet 625 mg PO DAILY@07 solifenacin [Vesicare] 5 mg tablet 5 mg PO DAILY@07 gabapentin 600 mg Tablet 600 mg PO DAILY@18 ondansetron HCl 4 mg Tablet 4 mg PO Q4H PRN (Reason: Nausea And Vomiting) sennosides-docusate sodium [Stool Softener-Laxative] 8.6-50 mg Tablet 2 tab PO BID@08,20 Fleet Enema 19-7 gram/118 mL Enema 118 ml [place] DAILY PRN (Reason: Constipation) albuterol sulfate 2.5 mg /3 mL (0.083 %) solution for nebulization 2.5 mg inhalation Q4H PRN (Reason: FOR 5 DAYS PER FAMILY REQUEST ) vitamin A and D Ointment See Rx Instructions .ROUTE .COMPLEX Rx Instructions: APPLY TO FEET AND LEGS BL DAILY AT BEDTIME WITH SOCKS. pantoprazole 40 mg tablet,delayed release (DR/EC) 40 mg PO DAILY@0630 Referrals: Sudheer Wood MD [Primary Care Provider] - Patient Instructions: Opioid Safety, Pain Management Transfer Attestations Time Spent in Transfer Care: greater than 30 min Status at Transfer: Cognitive status at transfer: cognitively intact; Behavioral status at transfer: cooperative; Quality Metrics Clinical Quality Measures [ No reported AMI, CVA or VTE this stay] Coding Level of Care Code Acute Code for Chg Fwd Diagnoses CAD in [place] artery I25.10 Thrombocytopenia D69.6 Dysphagia R13.10 Cirrhosis K74.60 Cystitis N30.90 Anemia D64.9 Bright red blood per rectum K62.5
[2023-06-15 11:55] LABS: Basophils % 0.8 %; Eosinophils # 0.2 10^3/uL (0.0-0.8); Eosinophils % 8.8 %; Hematocrit 27.7 % (36-47); Lymphocytes # 0.5 10^3/uL (0.8-4.8); Mean Corpuscular Hemoglobin 30.7 pg (27-33); Mean Corpuscular Volume 98.9 fl (85-98); Mean Platelet Volume 10.4 fL (7.4-10.4); Monocytes # 0.3 10^3/uL (0.2-0.9); Monocytes % 13.1 %; Neutrophils # 1.49 10^3/uL (1.8-7.7); Neutrophils % 57.3 %; Nucleated Red Blood Cells % 0 %; Platelet Count 58 10^3/cmm (157-399); Red Cell Distribution Width 18.2 % (12.1-15.1)
--- NOTE | 2023-06-15 12:44 | XR_ITS ---
WS: [id number] XR chest 1V portable [id number] REASON FOR EXAM: Post PICC insertion FINDINGS: Right arm PICC line placement. The tip is in the distal third of the superior vena cava at the atrial level. Complex left pleural effusion unchanged compared to 06/13/2023. Decreased lung volume on the right, pr esumably due to poor inspiratory effort. IMPRESSION: Right arm PICC line placement with the tip in the proper position for use as above. PICC line position was discussed with the genetic technologist at 1:36 p.m.
--- NOTE | 2023-06-15 13:15 | PC.NURSE ---
Double lumen PICC placed to right basilic vein. Referred to vascular access nurse for PICC placement due to poor access and need for blood products. Pt awaiting transfer to [facility] once bed available. Discussed risks and benefits with patient and patient's Liset TALBERT. Informed consent obtained via phone from NITISH Hutchins. Right arm assessed with right basilic vein measuring 3.8 mm, straight, and apparent best choice for placement. Using sterile technique and MST, right basilic vein accessed x 1 stick. Mid-arm circumference measured 10 cm from right AC 24 cm. Trimmed cath 39 cm with 1 cm external length noted. CXR shows tip in distal third of the SVC, good to use per radiologist. Line secured with stat-lock. Insertion site covered with Biopatch and TSM. Report given to bedside nurseLucía.
--- NOTE | 2023-06-15 19:27 | PC.NURSE ---
Report called to Deana HERRERA at [facility].
--- NOTE | 2023-06-15 21:18 | PC.NURSE ---
Transfer: Received a bed from [facility] at shift change. Day shift RN called report. EMS here to get patient at 2030 and [facility] notified of patient leaving.
== END 2023-06-15 20:30 | disposition short-term general hospital (02) | DRG 378 ==
LOC: ER 11:35 → MEDSURG 15:50
PROVIDERS: Admitting Provider Internal Medicine; Emergency Provider Family Medicine; PCP Internal Medicine; Visit Provider Student in an Organized Health Care Education/Training Program
DX: K92.2 Gastrointestinal hemorrhage, unspecified (principal); D68.4 Acquired coagulation factor deficiency; K64.9 Unspecified hemorrhoids; K74.60 Unspecified cirrhosis of liver; E11.51 Type 2 diabetes mellitus with diabetic peripheral angiopathy without gangrene; M10.9 Gout, unspecified; E03.9 Hypothyroidism, unspecified; I25.2 Old myocardial infarction; Z86.73 Personal history of transient ischemic attack (TIA), and cerebral infarction without residual deficits; K21.9 Gastro-esophageal reflux disease without esophagitis; G89.29 Other chronic pain; M54.9 Dorsalgia, unspecified; M19.90 Unspecified osteoarthritis, unspecified site; E11.42 Type 2 diabetes mellitus with diabetic polyneuropathy; I25.10 Atherosclerotic heart disease of native coronary artery without angina pectoris; N30.20 Other chronic cystitis without hematuria; B95.2 Enterococcus as the cause of diseases classified elsewhere; D69.59 Other secondary thrombocytopenia; R13.10 Dysphagia, unspecified; D64.9 Anemia, unspecified; Z66 Do not resuscitate; I10 Essential (primary) hypertension
CPT/HCPCS: 36415; 36430; 36573; 71045; 80053; 81001; 82140; 83735; 84484; 85025; 85610; 85730; 86850; 86900; 86920; 93005; 94640; G0378; J7030; J7626; P9016; P9040

== ENCOUNTER 2023-06-24 09:06 | Emergency (ER) | payer MEDICARE, MEDICAID, SELFPAY ==
[2023-06-24 09:06] VITALS: BP 127/65; PULSE 93; RESP 16; TEMP 36.8; O2SAT 94; BMI 24.5
--- NOTE | 2023-06-24 09:50 | ED_ITS ---
HPI - GI Bleed 2 General: Chief complaint: GI Bleed Stated complaint: bloody stools Time Seen by Provider: 06/24/23 09:07 Source: patient Mode of arrival: EMS History of Present Illness: 83-year-old female who has been to [facility] in [place] twice in the last month. She was initially hospitalized here transferred there because her unable to get the colonoscopy. She was transferred to [facility] in [place] she was seen by GI they were able to complete the colonoscopy. They did not find any areas that were requiring any form of intervention. They discharged the patient home at that time recommending that she would likely to continue to have bleeding her medications particularly her antiplatelet therapies would need to be adjusted appropriately and she would need intermittent transfusions of blood and platelets. She was readmitted on June 13 here and transferred out on June 15 because she continued to have bleeding. We are currently seeking the records from that latest transfer to [facility]. Patient arrives here awake and alert reporting intermittent rectal bleeding vital signs are stable. She had a stool shortly after arriving there is no bright red blood in the stool. MD complaint: gross hematochezia Onset (ago): week(s) Pain Consistency: intermittent Severity: mild Relieving factors: none Exacerbating factors: none Context: history of GI bleed Associated symptoms: Denies abdominal pain, chills, easy bruising, epistaxis, fever(s), headache(s), malaise, nausea, other bleeding, poor appetite, rash, syncope, vomiting or weakness Review of Systems 2 Const: Denies: fever(s), chills or malaise ENMT: Denies: epistaxis Card: Denies: syncope Resp: Denies: dyspnea GI: Reports: hematochezia; Denies: abdominal pain, nausea or vomiting : Denies: dysuria, urinary frequency or urinary urgency Musc: Denies: neck pain or back pain Skin/Breast: Denies: rash Neuro: Denies: headache(s) Edu/Lymph: Denies: easy bruising PFSH ED 2 PFSH: Medical History Cirrhosis Bacteremia Thrombocytopenia Diabetes Gout Hypothyroidism Acute UTI Non-ST elevation [place] (NSTEMI) Confusion Urolithiasis Retained ureteral stent Cystitis cystica History of CVA (cerebrovascular accident) GERD (gastroesophageal reflux disease) Peripheral artery disease Hypertension Chronic back pain Osteoarthritis Polyneuropathy Post herpetic neuralgia CAD in [place] artery Chronic cystitis Surgical History H/O bladder repair surgery S/P tonsillectomy Hip fracture History of cataract surgery History of cholecystectomy H/O: hysterectomy Family History Other Renal cancer Social History Smoking and tobacco/nicotine status: never used tobacco/nicotine Alcohol intake: never Substance/Drug Use: never Adopted: No Caregiver/support person: No Lives independently: No Housing: [facility] Marital status: Current occupational status: retired Current gender identity: Female Physical Exam 2 Const: GENERAL APPEARANCE: cooperative and comfortable O RIENTATION/CONSCIOUSNESS: Yes awake, Yes oriented to person, Yes oriented to place and Yes oriented to time HENMT: COMMON NORMALS: normocephalic, atraumatic and hearing grossly normal bilaterally HEAD & SCALP: normocephalic and atraumatic Resp: COMMON NORMALS: normal respiratory effort, No retractions, No use of accessory muscles and clear to auscultation bilaterally AUSCULTATION: clear to auscultation bilaterally Cardio: COMMON NORMALS: regular rate, regular rhythm and No murmurs present (Cardio) RATE: regular rate RHYTHM: regular rhythm GI: COMMON NORMALS: Soft to palpation and No hepatosplenomegaly present A USCULTATION: Yes normoactive bowel sounds PALPATION: Yes Soft to palpation, No Tenderness to palpation present (GI), No Guarding due to palpation present (GI) and Yes No hepatosplenomegaly present Extremity: COMMON NORMALS: normal to inspection, capillary refill normal, no clubbing, cyanosis or edema, no calf tenderness and no pedal edema Neuro: SENSORIUM/ORIENTATION: Yes oriented to person, Yes oriented to place and Yes oriented to time Skin: COMMON NORMALS: no rashes or lesions noted GENERAL SKIN EXAM: no rashes or lesions noted Course 2 Vital Signs: Vital signs: Vital Signs Temperature 98.3 F 06/24/23 13:04 Pulse Rate 102 H 06/24/23 13:04 Respiratory Rate 16 06/24/23 13:04 Blood Pressure 108/73 06/24/23 13:04 Pulse Oximetry 100 06/24/23 13:04 Oxygen Delivery Me thod Nasal Cannula 06/24/23 10:36 Oxygen Flow Rate 2 06/24/23 10:36 MDM - GI Bleed Medical Decision Making Patient's hemoglobin is stable at this point platelets are still low however they are better than what they have been on average recently. We did attempt to get the records from the most recent [facility] hospitalization however the discharge is not completed. The previous hospitalization records are in the chart to reflect that they were able to do a colonoscopy and they did not recommend any further interventions they did not feel there is any areas that were potentials to be treated either directly or indirectly with interventional radiology. Discussed with the patient's attending at the half-way will discharge the patient back and plan on monitoring her there and transfusing both platelets and blood as needed, which is a recommendation of GI when they had seen the patient earlier this month on the first trip to [facility]. Medical Records I reviewed the patient's medical records. Lab Data I reviewed the patient's lab results. 06/24/23 10:01 06/24/23 10:01 Laboratory Results WBC 2.63 10^3/uL (3.29-11.43) L 06/24/23 10:01 RBC 2.92 10^6/uL (3.85-5.65) L 06/24/23 10:01 Hgb 9.10 g/dL (11.27-16.99) L 06/24/23 10:01 Hct 30.1 % (36-47) L 06/24/23 10:01 MCV 103.1 fl (85-98) H 06/24/23 10:01 MCH 31.2 pg (27-33) 06/24/23 10:01 MCHC 30.2 g/dL (30-55) 06/24/23 10:01 RDW 18.7 % (12.1-15.1) H 06/24/23 10:01 Plt Count 63 10^3/cmm (157-399) L 06/24/23 10:01 MPV 10.1 fL (7.4-10.4) 06/24/23 10:01 Neut % (Auto) 61.3 % 06/24/23 10:01 Lymph % (Auto) 20.9 % 06/24/23 10:01 Millard % (Auto) 8.0 % 06/24/23 10:01 Eos % (Auto) 8.7 % 06/24/23 10:01 Baso % (Auto) 1.1 % 06/24/23 10:01 Neut # (Auto) 1.61 10^3/uL (1.8-7.7) L 06/24/23 10:01 Lymph # (Auto) 0.6 10^3/uL (0.8-4.8) L 06/24/23 10:01 Millard # (Auto) 0.2 10^3/uL (0.2-0.9) 06/24/23 10:01 Eos # (Auto) 0.2 10^3/uL (0.0-0.8) 06/24/23 10:01 Baso # (Auto) 0.0 10^3/uL (0.0-0.1) 06/24/23 10:01 Nucleated RBC % (auto) 0 % 06/24/23 10:01 Nucleated RBCs # 0.0 /100WBC 06/24/23 10:01 PT 18.00 SECONDS (12.1-14.9) H 06/24/23 10:01 INR 1.43 (0.8-1.2) H 06/24/23 10:01 APTT 29.4 SECONDS (23.9-36.7) 06/24/23 10:01 Sodium 138 mmol/L (136-145) 06/24/23 10:01 Potassium 4.0 mmol/L (3.5-5.1) 06/24/23 10:01 Chloride 106 mmol/L (98-107) 06/24/23 10:01 Carbon Dioxide 25 mmol/L (22-29) 06/24/23 10:01 Anion Gap 11.0 (5-19) 06/24/23 10:01 BUN 7 mg/dL (8-23) L 06/24/23 10:01 Creatinine 0.5 mg/dL (0.5-0.9) 06/24/23 10:01 GFR Calculation Not Reportable 06/24/23 10:01 Glucose 97 mg/dL (65-115) 06/24/23 10:01 Calculated Osmolality 284 mOsm/kg (285-295) L 06/24/23 10:01 Calcium 8.1 mg/dL (8.5-10.5) L 06/24/23 10:01 Total Bilirubin 1.2 mg/dL (0.15-1.2) 06/24/23 10:01 AST 27 U/L (0-32) 06/24/23 10:01 ALT 12 U/L (0-33) 06/24/23 10:01 Alkaline Phosphatase 167 U/L (35-105) H 06/24/23 10:01 Total Protein 6.0 g/dL (6.6-8.7) L 06/24/23 10:01 Albumin 2.5 g/dL (3.5-5.2) L 06/24/23 10:01 Globulin 3.5 g/dL (1.3-4.6) 06/24/23 10:01 Urine Color Yellow (Yellow) 06/24/23 09:41 Urine Appearance Clear (CLEAR) 06/24/23 09:41 Urine pH 6 (5-7) 06/24/23 09:41 Ur Specific Armstrong 1.015 (1.005-1.030) 06/24/23 09:41 Urine Protein Neg (Negative) 06/24/23 09:41 Urine Glucose (UA) Norm (Normal) 06/24/23 09:41 Urine Ketones Negative (Negative) 06/24/23 09:41 Urine Blood 2+ (Negative) H 06/24/23 09:41 Urine Nitrate Negative (Negative) 06/24/23 09:41 Urine Bilirubin Neg (Negative) 06/24/23 09:41 Urine Urobilinogen Norm mg/dL (Negative) 06/24/23 09:41 Ur Leukocyte Esterase Trace (Negative) H 06/24/23 09:41 Urine RBC 0-4 /hpf (0-2) H 06/24/23 09:41 Urine WBC 10-15 /hpf (0-5) H 06/24/23 09:41 Ur Squamous Epith Cells 0-4 /hpf (0-5) H 06/24/23 09:41 Ur Transition Epith Cell 0-4 /hpf 06/24/23 09:41 Calcium Oxalate Crystal 0-4 /hpf H 06/24/23 09:41 Amorphous Sediment Not Reportable 06/24/23 09:41 Urine Bacteria None /hpf (NONE) 06/24/23 09:41 Urine Mucus None /hpf 06/24/23 09:41 No radiology studies performed this visit Discharge Plan Discharge Patient Disposition: Home Clinical Impression: Lower gastrointestinal hemorrhage, Thrombocytopenia, Cystitis cystica Condition: Stable Prescriptions: No Action magnesium hydroxide [Milk of Magnesia] 400 mg/5 mL suspension 30 ml PO Q24H PRN (Reason: Constipation) sertraline 25 mg tablet 25 mg PO DAILY@07 polyethylene glycol 3350 [Miralax] 17 gram/dose powder 17 gm PO DAILY@07 acetaminophen 325 mg Tablet 650 mg PO Q6H PRN (Reason: Pain) miconazole nitrate 2 % Cream 1 applic TOPICAL Q8H PRN (Reason: Itching) ferrous sulfate 325 mg (65 mg iron) Tablet 325 mg PO DAILY@08 budesonide 0.5 mg/2 mL Suspension For Nebulization 0.5 mg inhalation Q12H multivitamin with iron Tablet 1 tab PO DAILY@07 zinc oxide 40 % Ointment 1 applic TOPICAL BID solifenacin [Vesicare] 5 mg tablet 5 mg PO DAILY@07 vitamin A and D Ointment See Rx Instructions .ROUTE .COMPLEX Rx Instructions: APPLY TO FEET AND LEGS BL DAILY AT BEDTIME WITH SOCKS. pantoprazole 40 mg tablet,delayed release (DR/EC) 40 mg PO BID gabapentin 400 mg Capsule 400 mg PO TID Discharge Orders: Discharge ED (Routine); Ordered 06/24/23 Ordered By: Jamie Gamino Referrals: Sudheer Wood MD [Primary Care Provider] - Discharge Diet: Usual diet Discharge Activity: Increase activity as tolerated Patient Instructions: Opioid Safety, Pain Management Coding Level of Care Code ED Edge Sawyer for Paramjit Low
[2023-06-24 10:04] LABS: Specific Gravity, Urine 1.015 (1.005-1.030); Urine Appearance Clear (CLEAR); Urine Color Yellow (Yellow); pH Urine 6 (5-7)
[2023-06-24 10:06] LABS: Add Urine Microscopic? YES; Bilirubin Urine Neg (Negative); Blood Urine 2+ (Negative); Glucose Urine UA Norm (Normal); Ketones Urine Negative (Negative); Leukocyte Esterase Urine Trace (Negative); Nitrate Urine Negative (Negative); Protein Urine Neg (Negative); Urobilinogen Urine Norm (Negative)
[2023-06-24 10:14] LABS: Basophils % 1.1 %; Eosinophils # 0.2 10^3/uL (0.0-0.8); Eosinophils % 8.7 %; Hematocrit 30.1 % (36-47); Lymphocytes # 0.6 10^3/uL (0.8-4.8); Lymphocytes % 20.9 %; Mean Corpuscular HGB Conc 30.2 g/dL (30-55); Mean Corpuscular Hemoglobin 31.2 pg (27-33); Mean Corpuscular Volume 103.1 fl (85-98); Mean Platelet Volume 10.1 fL (7.4-10.4); Monocytes # 0.2 10^3/uL (0.2-0.9); Neutrophils # 1.61 10^3/uL (1.8-7.7); Neutrophils % 61.3 %; Nucleated Red Blood Cells % 0 %; Platelet Count 63 10^3/cmm (157-399); Red Blood Count 2.92 10^6/uL (3.85-5.65); Red Cell Distribution Width 18.7 % (12.1-15.1); White Blood Count 2.63 10^3/uL (3.29-11.43)
[2023-06-24 10:25] LABS: INR 1.43 (0.8-1.2)
[2023-06-24 10:26] LABS: Partial Thromboplastin Time 29.4 SECONDS (23.9-36.7)
[2023-06-24 10:33] LABS: Alanine Aminotransferase 12 U/L (0-33); Albumin Level 2.5 g/dL (3.5-5.2); Alkaline Phosphatase 167 U/L (35-105); Aspartate Amino Transferase 27 U/L (0-32); Blood Urea Nitrogen 7 mg/dL (8-23); Calcium 8.1 mg/dL (8.5-10.5); Carbon Dioxide 25 mmol/L (22-29); Chloride 106 mmol/L (98-107); Globulin 3.5 g/dL (1.3-4.6); Glucose 97 mg/dL (65-115); Osmolality Calculated 284 mOsm/kg (285-295); Sodium 138 mmol/L (136-145); Total Bilirubin 1.2 mg/dL (0.15-1.2)
[2023-06-24 10:36] VITALS: BP 108/73; PULSE 102; RESP 16; O2SAT 100
[2023-06-24 11:16] LABS: Add Urine Culture? No; Calcium Oxalate Crystals Urine 0-4 /hpf; RBC Urine 0-4 /hpf (0-2); Squamous Epithelial Cell Urine 0-4 /hpf (0-5); Transitional Epi Cells Urine 0-4 /hpf
--- NOTE | 2023-06-24 11:31 | PC.PHAR ---
PT IS JAS. HER NURSE-PIETER_ STATES 17 MEDICATIONS HAVE BEEN REMOVED FROM CURRENT MED LIST. THEY ARE FOLLOWS: ALBUTEROL SULF 2.5MG/3ML SOLUTION FOR NEBULIZATION, BISACODYL 10 MG SUPPOSITORIES, CALCIUM CARB 500MG, FIBER LAX, EUCERIN CREAM, FLEET ENEMA, IMODIUM AD, MORPHINE 20MG/5ML, NITROSTAT 0.4MG, ONDANSETRON 4 MG, PYRIDIUM 200MG, POT. CHL. 20MEQ.,PREPARATION H SUPP, REFRESH, SENOCOT,SPIRONOLACTONE 100MG. VERIFIED PRIOR TO REMOVING MEDS. 06/24/23
[2023-06-24 13:04] VITALS: BP 108/73; PULSE 102; RESP 16; TEMP 36.8; O2SAT 100
== END 2023-06-24 13:08 | disposition home or self-care (01) ==
PROVIDERS: Emergency Provider Family Medicine; PCP Internal Medicine
DX: K92.2 Gastrointestinal hemorrhage, unspecified (principal); D69.6 Thrombocytopenia, unspecified; N30.80 Other cystitis without hematuria; E11.9 Type 2 diabetes mellitus without complications; I25.2 Old myocardial infarction; Z87.440 Personal history of urinary (tract) infections; Z86.73 Personal history of transient ischemic attack (TIA), and cerebral infarction without residual deficits; I10 Essential (primary) hypertension; I25.10 Atherosclerotic heart disease of native coronary artery without angina pectoris
CPT/HCPCS: 80053; 81001; 82274; 85025; 85610; 85730; 99283

== ENCOUNTER 2023-06-28 12:33 | Emergency (ER) | payer MEDICARE, MEDICAID, SELFPAY ==
[2023-06-28 12:40] VITALS: BP 129/68; PULSE 94; TEMP 36.5; O2SAT 100; BMI 26.5
[2023-06-28 12:48] VITALS: BP 129/68; PULSE 93; RESP 18; O2SAT 100
--- NOTE | 2023-06-28 13:21 | W.ED.GIBLEED ---
HPI - GI Bleed General: Chief complaint: GI Bleed Stated complaint: gi bleed Time Seen by Provider: 06/28/23 12:34 Source: patient Mode of arrival: ambulatory History of Present Illness: 83-year-old female has had only 4 hospitalizations in the past 6 weeks for rectal bleeding she has had 2 evaluations by colorectal surgery at [facility] in [place] no recommendations were given there is no obvious point of bleeding initial recommendation was just to follow transfuse as necessary adjust antiplatelet therapy to minimize episodes of bleeding. She was transferred back there a few weeks later at that time according to the old records from that visit at [facility] he said he could consider small capsule endoscopy or referral to colorectal surgery for possible sigmoid colon resection to minimize recurrent ER visits and hospital admissions for complaints of rectal bleeding. Vital signs are stable at arrival MD complaint: gross hematochezia Onset (ago): week(s) Pain Consistency: intermittent Relieving factors: none Exacerbating factors: none Context: history of GI bleed Associated symptoms: Denies abdominal pain, chills, easy bruising, epistaxis, fever(s), headache(s), malaise, nausea, other bleeding, poor appetite, rash, syncope, vomiting or weakness Treatments Prior to Arrival: none Review of Systems Const: Denies: fever(s), chills or malaise ENMT: Denies: epistaxis Card: Denies: syncope Resp: Denies: dyspnea GI: Reports: hematochezia; Denies: abdominal pain, nausea or vomiting : Denies: dysuria, urinary frequency or urinary urgency Musc: Denies: neck pain or back pain Skin/Breast: Denies: rash Neuro: Denies: headache(s) Edu/Lymph: Denies: easy bruising PFSH ED PFSH: Medical History Cystitis Cirrhosis Bacteremia Thrombocytopenia Diabetes Gout Hypothyroidism Acute UTI Non-ST elevation [place] (NSTEMI) Confusion Urolithiasis Retained ureteral stent Cystitis cystica History of CVA (cerebrovascular accident) GERD (gastroesophageal reflux disease) Peripheral artery disease Hypertension Chronic back pain Osteoarthritis Polyneuropathy Post herpetic neuralgia CAD in [place] artery Chronic cystitis Surgical History H/O bladder repair surgery S/P tonsillectomy Hip fracture History of cataract surgery History of cholecystectomy H/O: hysterectomy Family History Other Renal cancer Social History Smoking and tobacco/nicotine status: never used tobacco/nicotine Alcohol intake: never Substance/Drug Use: never Adopted: No Caregiver/support person: No Lives independently: No Housing: Prison Marital status: Current occupational status: retired Current gender identity: Female Physical Exam Const: COMMON NORMALS: no acute distress GENERAL APPEARANCE: cooperative and comfortable ORIENTATION/CONSCIOUSNESS: Yes awake, Yes oriented to person, Yes oriented to place and Yes oriented to time HENMT: COMMON NORMALS: normocephalic, atraumatic and hearing grossly normal bilaterally HEAD & SCALP: normocephalic and atraumatic Resp: COMMON NORMALS: normal respiratory effort, No retractions, No use of accessory muscles and clear to auscultation bilaterally AUSCULTATION: clear to auscultation bilaterally Cardio: COMMON NORMALS: regular rate, regular rhythm and No murmurs present (Cardio) RATE: regular rate RHYTHM: regular rhythm GI: COMMON NORMALS: Soft to palpation and No hepatosplenomegaly present AUSCULTATION: Yes normoactive bowel sounds PALPATION: Yes Soft to palpation, No Tenderness to palpation present (GI), No Guarding due to palpation present (GI) and Yes No hepatosplenomegaly present Extremity: COMMON NORMALS: normal to inspection, capillary refill normal, no clubbing, cyanosis or edema, no calf tenderness and no pedal edema Neuro: SENSORIUM/ORIENTATION: Yes oriented to person, Yes oriented to place and Yes oriented to time Skin: COMMON NORMALS: no rashes or lesions noted GENERAL SKIN EXAM: no rashes or lesions noted Course Vital Signs: Vital signs: Vital Signs Temperature 97.7 F 06/28/23 12:40 Pulse Rate 92 06/28/23 14:40 Respiratory Rate 18 06/28/23 14:40 Blood Pressure 145/68 06/28/23 14:40 Pulse Oximetry 100 06/28/23 14:40 Oxygen Delivery Me thod Room Air 06/28/23 12:48 Oxygen Flow Rate 2 06/28/23 12:40 MDM - GI Bleed Medical Decision Making Has had multiple hospitalizations regarding this and to GI consults we have the old records for both I reviewed. Per GI consult they recommended no intervention and transfusion of platelets and blood as needed and stopping the antiplatelet medications which was done. Patient still has intermittent bleeding. She was transferred to second time GI seen earlier talked about the possibility of doing elective sigmoidoscopy or can refer to colorectal surgery which she has appointment for tomorrow the other option was a pill endoscopy. Given her age and the uncertainty that this would fix the problem and is still somewhat concerning. They did manage a full colonoscopy on the first referral to [facility] in [place] and they did not recommend any intervention because no definitive source of bleeding could be identified. Patient is a GI consult tomorrow as an outpatient with colorectal surgery. I discussed Dr. Wood who is her attending we had previously discussed this patient and the plan was not to send her back to the ER for transfusions however different midlevel's on today who was aware that plan and had directed her to the emergency room after discussion we decided the best course of action the patient be to transfuse her in outpatient here after being discharged from the ER and then have her go back to the [facility] and her family can still get her to her GI colorectal surgery appointment as scheduled tomorrow. Discussed with the distribution warehouse manager we have made arrangements and are working on getting transportation set up from the transfusion is completed. Medical Records I reviewed the patient's medical records. Lab Data I reviewed the patient's lab results. 06/28/23 13:08 Laboratory Results WBC 3.70 10^3/uL (3.29-11.43) 06/28/23 13:08 RBC 2.35 10^6/uL (3.85-5.65) L 06/28/23 13:08 Hgb 7.40 g/dL (11.27-16.99) L 06/28/23 13:08 Hct 23.9 % (36-47) L 06/28/23 13:08 MCV 101.7 fl (85-98) H 06/28/23 13:08 MCH 31.5 pg (27-33) 06/28/23 13:08 MCHC 31.0 g/dL (30-55) 06/28/23 13:08 RDW 19.0 % (12.1-15.1) H 06/28/23 13:08 Plt Count 42 10^3/cmm (157-399) L 06/28/23 13:08 MPV 11.0 fL (7.4-10.4) H 06/28/23 13:08 Neut % (Auto) 50.0 % 06/28/23 13:08 Lymph % (Auto) 20.8 % 06/28/23 13:08 Preston % (Auto) 20.5 % 06/28/23 13:08 Eos % (Auto) 7.6 % 06/28/23 13:08 Baso % (Auto) 0.8 % 06/28/23 13:08 Neut # (Auto) 1.85 10^3/uL (1.8-7.7) 06/28/23 13:08 Lymph # (Auto) 0.8 10^3/uL (0.8-4.8) 06/28/23 13:08 Preston # (Auto) 0.8 10^3/uL (0.2-0.9) 06/28/23 13:08 Eos # (Auto) 0.3 10^3/uL (0.0-0.8) 06/28/23 13:08 Baso # (Auto) 0.0 10^3/uL (0.0-0.1) 06/28/23 13:08 Nucleated RBC % (auto) 0 % 06/28/23 13:08 Nucleated RBCs # 0.0 /100WBC 06/28/23 13:08 Blood Type Cancelled 06/28/23 13:08 Rho(D) Type Cancelled 06/28/23 13:08 Antibody Screen Cancelled 06/28/23 13:08 Crossmatch See Detail 06/28/23 13:08 All radiology interpretation(s) finalized by discharge Discharge Plan Discharge Patient Disposition: Home Clinical Impression: Anemia, Thrombocytopenia, Lower gastrointestinal hemorrhage Condition: Stable Prescriptions: No Action magnesium hydroxide [Milk of Magnesia] 400 mg/5 mL suspension 30 ml PO Q24H PRN (Reason: Constipation) sertraline 25 mg tablet 25 mg PO DAILY@07 polyethylene glycol 3350 [Miralax] 17 gram/dose powder 17 gm PO DAILY@07 acetaminophen 325 mg Tablet 650 mg PO Q6H PRN (Reason: Pain) miconazole nitrate 2 % Cream 1 applic TOPICAL Q8H PRN (Reason: Itching) ferrous sulfate 325 mg (65 mg iron) Tablet 325 mg PO DAILY@08 budesonide 0.5 mg/2 mL Suspension For Nebulization 0.5 mg inhalation Q12H multivitamin with iron Tablet 1 tab PO DAILY@07 zinc oxide 40 % Ointment 1 applic TOPICAL BID solifenacin [Vesicare] 5 mg tablet 5 mg PO DAILY@07 vitamin A and D Ointment See Rx Instructions .ROUTE .COMPLEX Rx Instructions: APPLY TO FEET AND LEGS BL DAILY AT BEDTIME WITH SOCKS. pantoprazole 40 mg tablet,delayed release (DR/EC) 40 mg PO BID gabapentin 400 mg Capsule 400 mg PO TID Discharge Orders: Discharge ED (Routine); Ordered 06/28/23 Ordered By: Jamie Gamino Referrals: Sudheer Wood MD [Primary Care Provider] - Discharge Diet: Usual diet Discharge Activity: Resume usual activity Patient Instructions: Opioid Safety, Pain Management Activity Restrictions/Additional Instructions: Thank you for choosing [facility] for your healthcare needs today. Please realize this is an emergency room and that we are providing you with a medical screening exam and this may not be complete and all inclusive of all the testing and or work up that you may need to determine your ailment or severity of your illness. It is very important that you follow up as instructed or that you return to the Emergency Department should you have concerns or if your condition changes or worsens in any way. You are seen today in the emergency room for complaints of rectal bleeding. Since you have had 2 evaluations by gastroenterology and currently they are making no other recommendations after discussing with your primary care doctor we recommend discharge from the ER to outpatients where to be transfused 1 unit of blood. He has an appointment tomorrow with gastroenterology in [place] you should keep that appointment. Transfer to outpatient facility is not indicated at this time since you have previously had endoscopy within the last month. Additionally they would not be able to do endoscopy today since your bowel has not been prepped. Coding Level of Care Code ED Headliner Installer for Paramjit Low
[2023-06-28 13:31] LABS: Basophils % 0.8 %; Eosinophils # 0.3 10^3/uL (0.0-0.8); Eosinophils % 7.6 %; Hematocrit 23.9 % (36-47); Lymphocytes # 0.8 10^3/uL (0.8-4.8); Lymphocytes % 20.8 %; Mean Corpuscular Hemoglobin 31.5 pg (27-33); Mean Corpuscular Volume 101.7 fl (85-98); Monocytes # 0.8 10^3/uL (0.2-0.9); Monocytes % 20.5 %; Neutrophils # 1.85 10^3/uL (1.8-7.7); Nucleated Red Blood Cells % 0 %; Platelet Count 42 10^3/cmm (157-399); Red Blood Count 2.35 10^6/uL (3.85-5.65)
[2023-06-28 14:40] VITALS: BP 145/68; PULSE 92; RESP 18; O2SAT 100
== END 2023-06-28 14:48 | disposition home or self-care (01) ==
PROVIDERS: Emergency Provider Family Medicine; PCP Internal Medicine
DX: D64.9 Anemia, unspecified (principal); K92.2 Gastrointestinal hemorrhage, unspecified; D69.6 Thrombocytopenia, unspecified; E11.9 Type 2 diabetes mellitus without complications; I25.2 Old myocardial infarction; Z86.73 Personal history of transient ischemic attack (TIA), and cerebral infarction without residual deficits; I10 Essential (primary) hypertension; I25.10 Atherosclerotic heart disease of native coronary artery without angina pectoris
CPT/HCPCS: 36415; 85025; 99283

== ENCOUNTER → 2023-06-28 15:10 | Day surgery (SDC) | payer MEDICARE, MEDICAID, SELFPAY ==
[2023-06-28 15:00] VITALS: BP 141/66; PULSE 86; RESP 18; TEMP 36.7; O2SAT 100
[2023-06-28] MEDS: diphenhydrAMINE 25 mg Capsule 50 MG PO (15:33)
[2023-06-28] MEDS: acetaminophen 325 mg Tablet 650 MG PO (15:33)
[2023-06-28 15:44] VITALS: BP 128/70; PULSE 86; RESP 18; TEMP 36.9; O2SAT 100
[2023-06-28] MEDS: sodium chloride 0.9% 100 mL Bag 50 ML IV (16:02)
[2023-06-28 16:04] VITALS: BP 144/70; PULSE 95; RESP 18; TEMP 37.1; O2SAT 100
[2023-06-28 16:19] VITALS: BP 139/54; PULSE 85; RESP 18; TEMP 37; O2SAT 100
[2023-06-28 17:19] VITALS: PULSE 92; RESP 18; TEMP 36.1; O2SAT 100
[2023-06-28 18:05] VITALS: BP 140/78; PULSE 89; RESP 18; TEMP 36.2; O2SAT 99
== END ==
PROVIDERS: PCP Internal Medicine; Visit Provider Family Medicine
DX: D64.9 Anemia, unspecified (principal); K92.2 Gastrointestinal hemorrhage, unspecified; D69.6 Thrombocytopenia, unspecified; E11.9 Type 2 diabetes mellitus without complications; I25.2 Old myocardial infarction; Z86.73 Personal history of transient ischemic attack (TIA), and cerebral infarction without residual deficits; I10 Essential (primary) hypertension; I25.10 Atherosclerotic heart disease of native coronary artery without angina pectoris
CPT/HCPCS: 36415; 36430; 85025; 86850; 86900; 86920; 99283; P9040

== ENCOUNTER 2023-07-19 08:15 | Oncology outpatient (recurring) (ONCR) | payer MEDICARE, MEDICAID, SELFPAY ==
[2023-06-30 13:19] LABS: Basophils % 0.7 %; Eosinophils # 0.3 10^3/uL (0.0-0.8); Eosinophils % 6.6 %; Hematocrit 23.4 % (36-47); Lymphocytes # 0.7 10^3/uL (0.8-4.8); Lymphocytes % 16.7 %; Mean Corpuscular HGB Conc 31.2 g/dL (30-55); Mean Corpuscular Hemoglobin 30.4 pg (27-33); Mean Corpuscular Volume 97.5 fl (85-98); Mean Platelet Volume 11.3 fL (7.4-10.4); Monocytes # 0.6 10^3/uL (0.2-0.9); Monocytes % 14.7 %; Neutrophils # 2.48 10^3/uL (1.8-7.7); Neutrophils % 60.8 %; Nucleated Red Blood Cells % 0 %; Platelet Count 56 10^3/cmm (157-399); Red Cell Distribution Width 19.9 % (12.1-15.1); White Blood Count 4.08 10^3/uL (3.29-11.43)
[2023-06-30 13:41] LABS: Alanine Aminotransferase 15 U/L (0-33); Albumin Level 2.5 g/dL (3.5-5.2); Alkaline Phosphatase 137 U/L (35-105); Anion Gap 7.8 (5-19); Aspartate Amino Transferase 28 U/L (0-32); Blood Urea Nitrogen 12 mg/dL (8-23); Carbon Dioxide 29 mmol/L (22-29); Chloride 104 mmol/L (98-107); Ferritin 311 ng/mL (15-150); Globulin 3.2 g/dL (1.3-4.6); Glucose 107 mg/dL (65-115); Iron 23 ug/dL (37-145); Osmolality Calculated 284 mOsm/kg (285-295); Percent Saturation 16.9 % (20-50); Potassium 3.8 mmol/L (3.5-5.1); Sodium 137 mmol/L (136-145); Total Bilirubin 0.8 mg/dL (0.15-1.2); Total Iron Binding Capacity 136 mcg/dl; Total Protein 5.7 g/dL (6.6-8.7); Unsaturated Iron Binding 113 ug/dL (112-347)
[2023-06-30 15:04] LABS: Vitamin B12 788 pg/mL (232-1245)
[2023-07-01 13:15] LABS: Eosinophils # 0.3 10^3/uL (0.0-0.8); Eosinophils % 6.5 %; Hematocrit 21.8 % (36-47); Lymphocytes # 0.7 10^3/uL (0.8-4.8); Lymphocytes % 16.5 %; Mean Corpuscular HGB Conc 31.2 g/dL (30-55); Mean Corpuscular Hemoglobin 30.5 pg (27-33); Mean Corpuscular Volume 97.8 fl (85-98); Mean Platelet Volume 11.7 fL (7.4-10.4); Monocytes # 0.6 10^3/uL (0.2-0.9); Monocytes % 14.4 %; Neutrophils # 2.66 10^3/uL (1.8-7.7); Neutrophils % 61.9 %; Nucleated Red Blood Cells % 0 %; Platelet Count 65 10^3/cmm (157-399); Red Blood Count 2.23 10^6/uL (3.85-5.65); Red Cell Distribution Width 19.9 % (12.1-15.1)
[2023-07-01 14:35] VITALS: BP 112/71; PULSE 75; RESP 18; TEMP 36.6; O2SAT 95
[2023-07-01] MEDS: sodium chloride 0.9% 250 mL Bag IV (15:00)
[2023-07-01 15:01] VITALS: BP 112/71; PULSE 75; RESP 18; TEMP 37.2; O2SAT 95
[2023-07-01 15:15] VITALS: BP 116/64; PULSE 88; RESP 19; TEMP 37.2; O2SAT 98
[2023-07-01 15:30] VITALS: BP 108/65; PULSE 88; RESP 19; TEMP 37.2; O2SAT 95
[2023-07-01 16:30] VITALS: BP 129/69; PULSE 96; TEMP 37.2; O2SAT 100
[2023-07-02] MEDS: sodium chloride 0.9% 250 ML IV (08:22)
[2023-07-02 08:57] VITALS: BP 116/73; PULSE 94; RESP 12; TEMP 36.4; O2SAT 98
[2023-07-02 09:12] VITALS: BP 111/70; PULSE 93; RESP 14; TEMP 36.6; O2SAT 98
[2023-07-02 09:27] VITALS: BP 115/81; PULSE 90; RESP 14; TEMP 36.6; O2SAT 98
[2023-07-02 09:57] VITALS: BP 120/75; PULSE 90; RESP 14; TEMP 36.5; O2SAT 99
[2023-07-02 11:07] VITALS: BP 116/74; PULSE 91; RESP 16; TEMP 36.9; O2SAT 99
[2023-07-02 11:08] VITALS: BP 116/74; PULSE 91; RESP 16; TEMP 36.9; O2SAT 99
[2023-07-07] VITALS (11 sets, daily range): BP systolic 111–134; BP diastolic 56–80; PULSE 61–92; RESP 14–18; TEMP 36.3–36.9; O2SAT 90–99
[2023-07-07 08:40] LABS: Basophils % 0.4 %; Eosinophils # 0.3 10^3/uL (0.0-0.8); Eosinophils % 6.1 %; Hematocrit 21.9 % (36-47); Lymphocytes # 0.7 10^3/uL (0.8-4.8); Lymphocytes % 13.3 %; Mean Corpuscular HGB Conc 30.1 g/dL (30-55); Mean Corpuscular Hemoglobin 29.5 pg (27-33); Mean Corpuscular Volume 97.8 fl (85-98); Mean Platelet Volume 10.4 fL (7.4-10.4); Monocytes # 0.7 10^3/uL (0.2-0.9); Monocytes % 13.3 %; Neutrophils % 66.5 %; Nucleated Red Blood Cells % 0 %; Platelet Count 125 10^3/cmm (157-399); Red Blood Count 2.24 10^6/uL (3.85-5.65); Red Cell Distribution Width 21.8 % (12.1-15.1); White Blood Count 5.26 10^3/uL (3.29-11.43)
[2023-07-07] MEDS: sodium chloride 0.9% (100 ml) 100 ML 75 ML (12:00)
[2023-07-12 08:41] LABS: Basophils % 0.4 %; Eosinophils # 0.4 10^3/uL (0.0-0.8); Hematocrit 25.5 % (36-47); Lymphocytes # 0.7 10^3/uL (0.8-4.8); Lymphocytes % 13.1 %; Mean Corpuscular HGB Conc 30.6 g/dL (30-55); Mean Corpuscular Hemoglobin 30.1 pg (27-33); Mean Corpuscular Volume 98.5 fl (85-98); Mean Platelet Volume 10.5 fL (7.4-10.4); Monocytes # 0.6 10^3/uL (0.2-0.9); Monocytes % 10.5 %; Neutrophils # 3.72 10^3/uL (1.8-7.7); Neutrophils % 68.3 %; Nucleated Red Blood Cells % 0 %; Platelet Count 127 10^3/cmm (157-399); Red Blood Count 2.59 10^6/uL (3.85-5.65); Red Cell Distribution Width 20.8 % (12.1-15.1); White Blood Count 5.44 10^3/uL (3.29-11.43)
[2023-07-12] MEDS: sodium chloride 0.9% 250 mL Bag IV (10:43)
[2023-07-12 10:48] VITALS: BP 130/79; PULSE 97; RESP 18; TEMP 36.4; O2SAT 94
[2023-07-12 11:08] VITALS: BP 137/94; PULSE 97; RESP 18; TEMP 36.4; O2SAT 94
[2023-07-12 11:26] VITALS: PULSE 97; RESP 18; TEMP 36.5; O2SAT 94
[2023-07-12 11:59] VITALS: BP 139/59; PULSE 88; RESP 18; TEMP 36.6; O2SAT 100
[2023-07-12 12:20] VITALS: BP 125/73; PULSE 90; RESP 18; TEMP 36.3; O2SAT 94
[2023-07-12 13:10] VITALS: BP 124/78; PULSE 92; RESP 18; TEMP 36.4; O2SAT 98
[2023-07-19 08:27] LABS: Basophils % 0.6 %; Eosinophils # 0.2 10^3/uL (0.0-0.8); Eosinophils % 4.1 %; Hematocrit 29.8 % (36-47); Lymphocytes # 0.6 10^3/uL (0.8-4.8); Mean Corpuscular HGB Conc 30.5 g/dL (30-55); Mean Corpuscular Hemoglobin 30.1 pg (27-33); Mean Corpuscular Volume 98.7 fl (85-98); Mean Platelet Volume 10.6 fL (7.4-10.4); Monocytes # 0.4 10^3/uL (0.2-0.9); Monocytes % 8.5 %; Neutrophils # 3.84 10^3/uL (1.8-7.7); Neutrophils % 74.1 %; Nucleated Red Blood Cells % 0 %; Platelet Count 113 10^3/cmm (157-399); Red Blood Count 3.02 10^6/uL (3.85-5.65); Red Cell Distribution Width 20.9 % (12.1-15.1); White Blood Count 5.18 10^3/uL (3.29-11.43)
[2023-07-19 08:52] LABS: Alanine Aminotransferase 14 U/L (0-33); Albumin Level 2.4 g/dL (3.5-5.2); Alkaline Phosphatase 115 U/L (35-105); Anion Gap 11.9 (5-19); Aspartate Amino Transferase 26 U/L (0-32); Blood Urea Nitrogen 14 mg/dL (8-23); Calcium 7.6 mg/dL (8.5-10.5); Carbon Dioxide 32 mmol/L (22-29); Chloride 102 mmol/L (98-107); Creatinine Clr Calc Pharmacy 47.2613; Ferritin 268 ng/mL (15-150); Globulin 3.4 g/dL (1.3-4.6); Glucose 91 mg/dL (65-115); Iron 69 ug/dL (37-145); Osmolality Calculated 296 mOsm/kg (285-295); Percent Saturation 52.6 % (20-50); Sodium 143 mmol/L (136-145); Total Bilirubin 1.5 mg/dL (0.15-1.2); Total Iron Binding Capacity 131 mcg/dl; Total Protein 5.8 g/dL (6.6-8.7); Unsaturated Iron Binding 62 ug/dL (112-347)
[2023-07-19 09:07] LABS: Potassium 2.9 mmol/L (3.5-5.1)
== END 2023-07-22 23:59 | disposition home or self-care (01) ==
PROVIDERS: PCP Internal Medicine; Visit Provider Internal Medicine Medical Oncology
DX: Z53.9 Procedure and treatment not carried out, unspecified reason (principal); D50.0 Iron deficiency anemia secondary to blood loss (chronic); R60.0 Localized edema; E87.6 Hypokalemia; Z79.899 Other long term (current) drug therapy
CPT/HCPCS: 36415; 36430; 80053; 82607; 82728; 83540; 83550; 85025; 86850; 86900; 86920; 99214; J7050; P9016; P9040

== ENCOUNTER 2023-07-21 08:20 | Inpatient (IN) | payer MEDICARE, MEDICAID, SELFPAY ==
[2023-07-21] VITALS (18 sets, daily range): BP systolic 98–157; BP diastolic 54–75; PULSE 83–108; RESP 14–24; TEMP 36.6–37.4; O2SAT 93–100; BMI 33.5
[2023-07-21 08:29] LABS: Glucose Point of Care 103 mg/dL (70-110)
--- NOTE | 2023-07-21 08:35 | XR_ITS ---
WS: [id number] Exam: XR chest 1V portable [id number] Date/Time of Exam: 07/21/2023 8:39 AM Reason For Exam: ams Comparison 05/18/2023. Extensive chronic pulmonary parenchymal scarring and fibrous change in the LEFT lung with chronic lef t-sided pleural thickening. This is stable in appearance. There is also chronic blunting of the RIGHT costophrenic angle and atelectasis in the RIGHT lower lobe. No pneumothorax. Probable mild cardiac e nlargement unchanged. Bony structures are intact. IMPRESSION: 1. Mild cardiac enlargement unchanged. 2. Extensive chronic pulmonary parenchymal and pleural changes on the LEFT. There is also chronic bhumika nting of the RIGHT costophrenic angle that likely represents pleural thickening. No acute process is suspected.
--- NOTE | 2023-07-21 08:35 | CT_ITS ---
WS: [id number] CT HEAD NONCONTRAST HISTORY: ams TECHNIQUE: Contiguous axial imaging performed through the brain in 2.5 mm imaging. Bone and soft tiss ue windows. Sagittal and coronal reformats reviewed. All CT scans at [facility] use at least one of these dose optimization techniques: automated exposure control; mA and/or kV adjustment per pa tient size (includes targeted exams where dose is matched to clinical indication); or iterative recon struction. DLP: 1201.88 mGy.cm COMPARISON: 08/01/2022 No acute intracranial hemorrhage, midline shift or mass effect. Moderate atrophy and advanced small vessel ischemic changes. No large territory infarct. Ventricles: Mild ventriculomegaly. No intraventricular blood. 1 degenerative changes at the craniocervical junction. Paranasal sinuses: As visualized are clear. Mastoid air cells: Well pneumatized. Calvarium and scalp: Skull is intact with no soft tissue edema or swelling. IMPRESSION: *Numbering no acute intracranial hemorrhage. Moderate atrophy with advanced small vessel ischemic disease.
--- NOTE | 2023-07-21 08:36 | ECG_ITS ---
[facility] Test Date: 2023-07-21 Pat Name: Daksha Machuca Department: Room: Gender: Female Eligibility Counselor: : 1940 Requested By: Raffaele Ervin Order Number: [id number] Magalys MD: Raymon Lazaro M.D. Measurements Intervals [place] Rate: 106 P: 189 [place]: 132 QRS: 131 QRSD: 94 T: 210 QT: 315 QTc: 419 Interpretive Statements ECTOPIC ATRIAL TACHYCARDIA POSSIBLE RIGHT VENTRICULAR HYPERTROPHY [SOME/ALL OF: PROMINENT R IN V1, LATE TRANSITION, RAD, NEO, SSS] ABNORMAL QRS-T ANGLE [QRS-T AXIS DIFFERENCE > 60] Compared to ECG 06/13/2023 14:43:43 Atrial abnormality now present Sinus rhythm no longer present T-wave abnormality no longer present Electronically Signed On 07-21-2023 9:11:52 DIRECTOR HEMATOLOGY by Raymon Lazaro M.D. [id number]
--- NOTE | 2023-07-21 08:48 | ED_ITS ---
HPI - Altered Mental Status 2 General: Chief Complaint: Altered Mental Status Stated Complaint: AMS Time Seen by Provider: 07/21/23 08:25 Source: EMS Mode of arrival: EMS Limitations: altered mental status History of Present Illness: This patient was transported to the emergency department from her long-term care facility. Allegedly per [facility] staff the patient was in her normal state of health interactive yesterday in her usual fashion however today she is not responding to verbal or physical stimulus. She does wear oxygen continuously at 2 L. PFS ED 2 PFS: Medical History Cystitis Cirrhosis Bacteremia Thrombocytopenia Diabetes Gout Hypothyroidism Acute UTI Non-ST elevation [place] (NSTEMI) Confusion Urolithiasis Retained ureteral stent Cystitis cystica History of CVA (cerebrovascular accident) GERD (gastroesophageal reflux disease) Peripheral artery disease Hypertension Chronic back pain Osteoarthritis Polyneuropathy Post herpetic neuralgia CAD in [place] artery Chronic cystitis Surgical History H/O bladder repair surgery S/P tonsillectomy Hip fracture History of cataract surgery History of cholecystectomy H/O: hysterectomy Family History Father Colon cancer Diabetes Heart disease Hypertension Stroke Sister Heart disease Hypertension Mother Hypertension Brother Hypertension Grandmother Hypertension Grandfather Hypertension Other Renal cancer Denies family history of Ovarian cancer Prostate cancer Breast cancer Uterine cancer Thyroid disease Social History (Updated 07/19/23 @ 10:28 by Jerome Cruz) Smoking and tobacco/nicotine status: never used tobacco/nicotine Course 2 Reevaluation(s): Reevaluation #1: Patient has had significant improvement since initial intake evaluation. The patient is alert and interacting with her family. I spoke with the family member who is present and she is waiting on the patient's son to arrive and at that point will have further discussion regarding disposition. The patient's apparently had issues with recurrent UTIs and has recently been seen by ID in [place]. Reevaluation #2: Again the right remainder of family is now here to include her son. They report that she is normally much sharper and interactive than she is currently. She still not back to baseline. We now find that she think she had a heart attack she had chest pain this morning this is new news we will go ahead and send a troponin although she had a normal initial EKG. She does have evidence of urinary tract infection but otherwise no evidence to suggest other potential etiologies of her acute delirium. Will plan on putting her in observation to ensure that she reverts back to baseline and ensure that there is no other attributing factors to her current presentation. Time: 13:10 Consultations: Consultation #1: Discussed with Dr. Gonzalez who agreed to accept the patient in for observation Time: 13:53 Vital Signs: Vital signs: Vital Signs Temperature 99.3 F 07/21/23 08:27 Pulse Rate 92 07/21/23 13:00 Respiratory Rate 16 07/21/23 13:00 Blood Pressure 130/69 07/21/23 13:00 Pulse Oximetry 98 07/21/23 13:00 Oxygen Delivery Me thod Room Air 07/21/23 08:27 Oxygen Flow Rate 2 07/21/23 10:30 MDM - Altered Mental Status Medical Decision Making 83-year-old lady who is a resident of a long-term care facility who is normally very mentally sharp and verbally interactive was found to not be reacting and interactive this morning was transferred to the emergency department. There was no history of falls given fevers or other symptoms. Initially she was not accompanied by any family members and so a workup for possible stroke, infection ensued. Eventually family family members made her way to the emergency department and additional illuminating information was obtained. They really affirmed that she had changed mental status today compared with her baseline. She did improve throughout her emergency department stay becoming much more alert and interactive. Her CT scan was unrevealing for any evidence of acute stroke etc. but she did have evidence of suggestive of a urinary tract infection. Subsequent evaluations revealed her to be improving but not back to her baseline as corroborated by her family. We will plan on placing her in observation for continued hydration, antibiotic treatment and other interventions as indicated. Lab Data I reviewed the patient's lab results. 07/21/23 08:45 07/21/23 08:45 Laboratory Results WBC 4.48 10^3/uL (3.29-11.43) 07/21/23 08:45 RBC 2.79 10^6/uL (3.85-5.65) L 07/21/23 08:45 Hgb 8.50 g/dL (11.27-16.99) L 07/21/23 08:45 Hct 27.2 % (36-47) L 07/21/23 08:45 MCV 97.5 fl (85-98) 07/21/23 08:45 MCH 30.5 pg (27-33) 07/21/23 08:45 MCHC 31.3 g/dL (30-55) 07/21/23 08:45 RDW 20.9 % (12.1-15.1) H 07/21/23 08:45 Plt Count 100 10^3/cmm (157-399) L 07/21/23 08:45 MPV 10.2 fL (7.4-10.4) 07/21/23 08:45 Neut % (Auto) 68.7 % 07/21/23 08:45 Lymph % (Auto) 15.0 % 07/21/23 08:45 [place] % (Auto) 11.2 % 07/21/23 08:45 Eos % (Auto) 3.6 % 07/21/23 08:45 Baso % (Auto) 0.4 % 07/21/23 08:45 Neut # (Auto) 3.08 10^3/uL (1.8-7.7) 07/21/23 08:45 Lymph # (Auto) 0.7 10^3/uL (0.8-4.8) L 07/21/23 08:45 [place] # (Auto) 0.5 10^3/uL (0.2-0.9) 07/21/23 08:45 Eos # (Auto) 0.2 10^3/uL (0.0-0.8) 07/21/23 08:45 Baso # (Auto) 0.0 10^3/uL (0.0-0.1) 07/21/23 08:45 Nucleated RBC % (auto) 0 % 07/21/23 08:45 Nucleated RBCs # 0.0 /100WBC 07/21/23 08:45 Sodium 141 mmol/L (136-145) 07/21/23 08:45 Potassium 3.4 mmol/L (3.5-5.1) L 07/21/23 08:45 Chloride 103 mmol/L (98-107) 07/21/23 08:45 Carbon Dioxide 30 mmol/L (22-29) H 07/21/23 08:45 Anion Gap 11.4 (5-19) 07/21/23 08:45 BUN 12 mg/dL (8-23) 07/21/23 08:45 Creatinine 0.7 mg/dL (0.5-0.9) 07/21/23 08:45 GFR Calculation Not Reportable 07/21/23 08:45 Glucose 109 mg/dL (65-115) 07/21/23 08:45 POC Glucose 103 mg/dL (70-110) 07/21/23 08:26 Calculated Osmolality 292 mOsm/kg (285-295) 07/21/23 08:45 Calcium 7.3 mg/dL (8.5-10.5) L 07/21/23 08:45 Total Bilirubin 1.2 mg/dL (0.15-1.2) 07/21/23 08:45 AST 22 U/L (0-32) 07/21/23 08:45 ALT 12 U/L (0-33) 07/21/23 08:45 Alkaline Phosphatase 97 U/L (35-105) 07/21/23 08:45 Total Protein 5.3 g/dL (6.6-8.7) L 07/21/23 08:45 Albumin 2.0 g/dL (3.5-5.2) L 07/21/23 08:45 Globulin 3.3 g/dL (1.3-4.6) 07/21/23 08:45 Urine Color Yellow (Yellow) 07/21/23 09:20 Urine Appearance Clear (CLEAR) 07/21/23 09:20 Urine pH 7 (5-7) 07/21/23 09:20 Ur Specific [place] 1.005 (1.005-1.030) 07/21/23 09:20 Urine Protein Neg (Negative) 07/21/23 09:20 Urine Glucose (UA) Norm (Normal) 07/21/23 09:20 Urine Ketones Negative (Negative) 07/21/23 09:20 Urine Blood 2+ (Negative) H 07/21/23 09:20 Urine Nitrate Negative (Negative) 07/21/23 09:20 Urine Bilirubin Neg (Negative) 07/21/23 09:20 Urine Urobilinogen 1 mg/dL (Negative) H 07/21/23 09:20 Ur Leukocyte Esterase 2+ (Negative) H 07/21/23 09:20 Urine RBC 0-4 /hpf (0-2) H 07/21/23 09:20 Urine WBC 10-15 /hpf (0-5) H 07/21/23 09:20 Ur Squamous Epith Cells 0-4 /hpf (0-5) H 07/21/23 09:20 Calcium Oxalate Crystal 5-10 /hpf H 07/21/23 09:20 Amorphous Sediment Not Reportable 07/21/23 09:20 Urine Bacteria 3+ /hpf (NONE) H 07/21/23 09:20 Urine Mucus None /hpf 07/21/23 09:20 XR interpretation done by ED provider, pending radiology final review EKG Data EKG 1: I personally reviewed and interpreted this EKG as follows: Interpretation: Contemporaneous review of initial EKG reveals ventricular rate of 106 bpm. Consistent with likely supraventricular tachycardia. OK interval is normal. QRS duration is normal corrected QT interval is normal normal axis. No acute ST-T wave changes noted. Discharge Plan Discharge Patient Disposition: Placed in Observation Clinical Impression: Urinary tract infection, Delirium, Chronic anemia Condition: Stable Prescriptions: No Action magnesium hydroxide [Milk of Magnesia] 400 mg/5 mL suspension 30 ml PO Q24H PRN (Reason: Constipation) sertraline 25 mg tablet 25 mg PO DAILY@07 polyethylene glycol 3350 [Miralax] 17 gram/dose powder 17 gm PO DAILY@07 potassium chloride 10 mEq tablet extended release 10 meq PO BID Qty: 60 0RF morphine 20 mg/5 mL (4 mg/mL) solution 20 mg PO Q4H PRN (Reason: pain) Rx Instructions: Morphine Sulfate Oral Solution 20MG/5ML(Morphine Phone Sulfate) Give 0.25 ml by mouth every 2 hours as needed for pain acetaminophen 325 mg Tablet 650 mg PO Q6H PRN (Reason: Pain) miconazole nitrate 2 % Cream 1 applic TOPICAL Q8H PRN (Reason: Itching) ferrous sulfate 325 mg (65 mg iron) Tablet 325 mg PO DAILY@08 budesonide 0.5 mg/2 mL Suspension For Nebulization 0.5 mg inhalation Q12H multivitamin with iron Tablet 1 tab PO DAILY@07 zinc oxide 40 % Ointment 1 applic TOPICAL BID solifenacin [Vesicare] 5 mg tablet 5 mg PO DAILY@07 pantoprazole 40 mg tablet,delayed release (DR/EC) 40 mg PO BID gabapentin 400 mg Capsule 400 mg PO TID furosemide 40 mg tablet 40 mg PO BID fosfomycin tromethamine 3 gram Packet 1 packet PO Q3D Aldactone 25 mg Tablet 25 mg PO DAILY ondansetron 4 mg Tablet,Disintegrating 4 mg PO Q4H PRN (Reason: Nausea And Vomiting) Referrals: Sudheer Wood MD [Primary Care Provider] - Patient Instructions: Altered Mental Status (ED) Coding Level of Care Code ED [employer] 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
[2023-07-21 09:02] LABS: Basophils % 0.4 %; Eosinophils # 0.2 10^3/uL (0.0-0.8); Eosinophils % 3.6 %; Hematocrit 27.2 % (36-47); Lymphocytes # 0.7 10^3/uL (0.8-4.8); Mean Corpuscular HGB Conc 31.3 g/dL (30-55); Mean Corpuscular Hemoglobin 30.5 pg (27-33); Mean Corpuscular Volume 97.5 fl (85-98); Mean Platelet Volume 10.2 fL (7.4-10.4); Monocytes # 0.5 10^3/uL (0.2-0.9); Monocytes % 11.2 %; Neutrophils # 3.08 10^3/uL (1.8-7.7); Neutrophils % 68.7 %; Nucleated Red Blood Cells % 0 %; Platelet Count 100 10^3/cmm (157-399); Red Blood Count 2.79 10^6/uL (3.85-5.65); Red Cell Distribution Width 20.9 % (12.1-15.1); White Blood Count 4.48 10^3/uL (3.29-11.43)
[2023-07-21] MEDS: sodium chloride 0.9% 500 ML IV (09:06)
[2023-07-21 09:21] LABS: Alanine Aminotransferase 12 U/L (0-33); Alkaline Phosphatase 97 U/L (35-105); Anion Gap 11.4 (5-19); Aspartate Amino Transferase 22 U/L (0-32); Blood Urea Nitrogen 12 mg/dL (8-23); Calcium 7.3 mg/dL (8.5-10.5); Carbon Dioxide 30 mmol/L (22-29); Chloride 103 mmol/L (98-107); Globulin 3.3 g/dL (1.3-4.6); Glucose 109 mg/dL (65-115); Osmolality Calculated 292 mOsm/kg (285-295); Potassium 3.4 mmol/L (3.5-5.1); Sodium 141 mmol/L (136-145); Total Bilirubin 1.2 mg/dL (0.15-1.2); Total Protein 5.3 g/dL (6.6-8.7)
[2023-07-21 09:43] LABS: Bilirubin Urine Neg (Negative); Blood Urine 2+ (Negative); Glucose Urine UA Norm (Normal); Ketones Urine Negative (Negative); Nitrate Urine Negative (Negative); Protein Urine Neg (Negative); Specific Gravity, Urine 1.005 (1.005-1.030); Urine Appearance Clear (CLEAR); Urine Color Yellow (Yellow); pH Urine 7 (5-7)
[2023-07-21 09:44] LABS: Add Urine Microscopic? YES; Leukocyte Esterase Urine 2+ (Negative); Urobilinogen Urine 1 mg/dL (Negative)
[2023-07-21 09:47] LABS: RBC Urine 0-4 /hpf (0-2); Squamous Epithelial Cell Urine 0-4 /hpf (0-5)
[2023-07-21 09:48] LABS: Add Urine Culture? Yes; Bacteria Urine 3+ /hpf
--- NOTE | 2023-07-21 09:57 | PC.NURSE ---
pt is more responsive and alert than at time of arrival. pt is responsice t questions but does not answer them appropriately at this time.
[2023-07-21] MEDS: cefTRIAXone 2,000 MG in sodium chloride 0.9% (plus) 50 ML 100 MG IV (10:08)
[2023-07-21] MEDS: gabapentin 400 mg Capsule PO (12:24)
--- NOTE | 2023-07-21 13:47 | ECG_ITS ---
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 Measurements Intervals [place] Rate: 89 P: -15 OK: 118 QRS: 63 QRSD: 102 T: -10 QT: 397 QTc: 485 Interpretive Statements Ectopic atrial rhythm. Baseline artifact causes rhythm assessment not feasible ABNORMAL QRS-T ANGLE [QRS-T AXIS DIFFERENCE > 60] Compared to ECG 07/21/2023 08:29:44 Short OK interval now present Atrial abnormality no longer present Electronically Signed On 07-21-2023 15:26:07 INFORMATION ASSURANCE MANAGER by Raymon Lazaro M.D. [id number]
--- NOTE | 2023-07-21 15:08 | ECG_ITS ---
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 Measurements Intervals [place] Rate: 88 P: -14 MA: 124 QRS: 72 QRSD: 92 T: -18 QT: 393 QTc: 477 Interpretive Statements SINUS RHYTHM NONSPECIFIC T-WAVE ABNORMALITY Compared to ECG 07/21/2023 13:47:15 T-wave abnormality now present Ectopic atrial rhythm no longer present Electronically Signed On 07-22-2023 7:24:09 SUBWAY CAR REPAIRER by Raymon Lazaro M.D. [id number]
[2023-07-21 15:18] LABS: Troponin(5th) Baseline 30 ng/L (0-10)
[2023-07-21 17:18] LABS: Troponin 5 2HR 36.62 ng/L (0-10); Troponin 5 2HR Delta 6.62 ABS# (0-10)
--- NOTE | 2023-07-21 17:18 | USCV_ITS ---
Daksha Machuca Age: 83 Gender: F : 1940 Exam Date: 07/21/2023 19:27 Ordering Phys: Keivn Aguero MD Technologist: TEODORO [place]am [place] [facility] [place] [facility] [place] Indication: altered mental status. Patient is unresponsive in 269-1. Risk Factors: altered mental status. Patient is unresponsive in 269-1. Previous Vascular Surgery: unknown Right Brachial BP: 127 / 67 Left Brachial BP: / Right Left Velocity (cm/s) Spectral Plaque Velocity (cm/s) Spectral Plaque Syst/Diast Broadening Syst/Diast Broadening 107.20/9.30 Min None Prox CCA 96.70 / 16.10 Min None 105.60/15.50 Mod Homo Mid CCA 105.80/ 18.70 Mod Homo 125.80/17.10 Mod Homo Distal CCA 125.70/ 16.50 Mod Homo 84.90/ 16.50 Mod Mika Prox ICA 101.40/ 14.30 Mod Mika 72.80/ 16.50 Min Hetro Mid ICA 116.90/ 17.60 Min Hetro 79.40/ 16.50 Min Homo Distal ICA 56.20 / 9.90 Min Hetro 172.70 Min Homo ECA 120.20 Min Homo 0.67 ICA/CCA 0.93 Bi- Vertebral Antegrade directiona l 67.30/ 11.00 cm/s 56.20/ 9.90 cm/s Tri Subclavian Tri 110.3 97.00 0 FINDINGS Comparison:. 04/05/17. No significant elevation of systolic or diastolic velocities. Waveforms are normal. Mild plaque in the bifurcations. Antegrade verebral arteries. Dr. Suri Rose DO (Electronically Signed) Final Date: 22 July 2023 07:39 S
--- NOTE | 2023-07-21 17:18 | P.HP_ITS ---
Providers/Chief Complaint 2 Admitting Physician: Kevin Aguero MD Primary Care Provider: Sudheer Wood MD Chief Complaint: AMS History of Present Illness Daksha Machuca is a 83 year old female with a past medical history of CVA, hypothyroidism, liver cirrhosis, chronic thrombocytopenia, history of rectal bleeding, recently transferred to tertiary level [place] for evaluation, history of CAD, who presents to [facility] for unresponsive episode. Currently patient is alert to person, to place, not to time she can follow all commands, she tells me that they sent her here because she was not responsive. Currently she denies any chest pain, no palpitations, no abdominal pain she complains of bilateral lower extremity swelling with weeping edema. She denies any blurry vision no facial droop no slurring of words no focal weakness but does report weakness all over. I informed her that she does have a UTI but she denies any dysuria, no hematuria, no flank pain. We did discuss her anemia, she was recently transferred to [facility] for GI evaluation for lower GI bleed but she tells me that they could not find where she was bleeding from and [facility]. Her hemoglobin is about stable from prior, she denies any active bloody or black stools. She is not exactly sure what happened but denies any recent issues, no recent health concerns in the last few weeks. I spoke to [facility], nursing staff informing that this morning when the nursing staff went in to check up on Daksha, for breakfast, she was nonresponsive sitting in her wheelchair, she would not wake up to sternal rub her vitals were within normal limits, but she was not waking up, they were worried that she had a stroke, but no reported focal weakness, no reported facial droop or slurring of her words. No reported falls. Patient does report chest pain, anterior, nonradiating, she is not sure exactly how long she has had it for Review of Systems 2 Const: Denies: fever(s) Card: Reports: chest pain Resp: Reports: dyspnea GI: Denies: abdominal pain : Denies: flank pain Medications/Allergies Home Medications Medication Instructions Recorded Confirmed Last Taken Type polyethylene glycol 3350 17 17 gm PO DAILY@07 08/30/19 07/21/23 06/27/23 History gram/dose oral powder (Miralax) magnesium hydroxide 400 mg/5 mL 30 ml PO Q24H PRN Constipation 01/09/21 07/21/23 06/27/23 History oral suspension (Milk of Magnesia) sertraline 25 mg tablet 25 mg PO DAILY@08/22/21 07/21/23 06/27/23 History acetaminophen 325 mg tablet 650 mg PO Q6H PRN Pain 03/23/23 07/21/23 06/27/23 History pantoprazole 40 mg tablet,delayed 40 mg PO BID 05/23/23 07/21/23 06/27/23 History release budesonide 0.5 mg/2 mL suspension 0.5 mg inhalation Q12H 06/13/23 07/21/23 06/27/23 History for nebulization ferrous sulfate 325 mg (65 mg 325 mg PO DAILY@06/13/23 07/21/23 06/27/23 History iron) tablet miconazole nitrate 2 % topical 1 applic topical Q8H PRN Itching 06/13/23 07/21/23 06/27/23 History cream multivitamin with iron 1 tab PO DAILY@06/13/23 07/21/23 06/27/23 History solifenacin 5 mg tablet (Vesicare) 5 mg PO DAILY@06/13/23 07/21/23 06/27/23 History zinc oxide 40 % topical ointment 1 applic topical BID 06/13/23 07/21/23 06/27/23 History gabapentin 400 mg capsule 400 mg PO TID 06/24/23 07/21/23 06/27/23 History morphine 20 mg/5 mL (4 mg/mL) oral 20 mg PO Q4H PRN pain 06/30/23 07/21/23 07/18/23 History solution potassium chloride 10 mEq 10 meq PO BID #60 tabs 07/19/23 07/21/23 Unknown Rx tablet,extended release fosfomycin tromethamine 3 gram 1 packet PO Q3D 07/21/23 07/21/23 07/21/23 History oral packet furosemide 40 mg tablet 40 mg PO BID 07/21/23 07/21/23 Unknown History ondansetron 4 mg disintegrating 4 mg PO Q4H PRN Nausea And Vomiting 07/21/23 07/21/23 Unknown History tablet spironolactone 25 mg tablet 25 mg PO DAILY 07/21/23 07/21/23 Unknown History (Aldactone) Allergies Allergy/AdvReac Type Severity Reaction Status Date / Time amoxicillin Allergy Unknown Verified 07/21/23 08:44 cefepime Allergy Unknown Verified 07/21/23 08:44 ciprofloxacin [From Cipro] Allergy Unknown Verified 07/21/23 08:44 codeine Allergy Unknown Verified 07/21/23 08:44 Influenza Virus Vaccines Allergy Unknown Verified 07/21/23 08:44 iodine Allergy Unknown Verified 07/21/23 08:44 Quinolones Allergy Unknown Verified 07/21/23 08:44 Sulfa (Sulfonamide Allergy Unknown Verified 07/21/23 08:44 Antibiotics) Sulfonylureas Allergy Unknown Verified 07/21/23 08:44 PFSH Acute 2 PFSH: Medical History Cystitis Cirrhosis Bacteremia Thrombocytopenia Diabetes Gout Hypothyroidism Acute UTI Non-ST elevation [place] (NSTEMI) Confusion Urolithiasis Retained ureteral stent Cystitis cystica History of CVA (cerebrovascular accident) GERD (gastroesophageal reflux disease) Peripheral artery disease Hypertension Chronic back pain Osteoarthritis Polyneuropathy Post herpetic neuralgia CAD in [place] artery Chronic cystitis Surgical History H/O bladder repair surgery S/P tonsillectomy Hip fracture History of cataract surgery History of cholecystectomy H/O: hysterectomy Family History Father Colon cancer Diabetes Heart disease Hypertension Stroke Sister Heart disease Hypertension Mother Hypertension Brother Hypertension Grandmother Hypertension Grandfather Hypertension Other Renal cancer Denies family history of Ovarian cancer Prostate cancer Breast cancer Uterine cancer Thyroid disease Social History Smoking and tobacco/nicotine status: never used tobacco/nicotine Vitals/I&O/Wt Last Vital Signs Temp 97.9 F 07/21/23 16:34 Pulse 93 07/21/23 16:34 Resp 17 07/21/23 16:34 BP 127/67 07/21/23 16:34 Pulse Ox 100 07/21/23 16:34 O2 Del Method Nasal Cannula 07/21/23 16:34 O2 Flow Rate 2 07/21/23 10:30 07/21/23 07/21/23 07/21/23 06:59 14:59 22:59 Intake Total 550 / 550 Balance 550 / 550 Weight last 48 hrs Weight 83.092 kg Physical Exam 2 Const: COMMON NORMALS: no acute distress ORIENTATION/CONSCIOUSNESS: Yes awake, Yes oriented to person and Yes oriented to place; not oriented to time HENMT: COMMON NORMALS: normocephalic HEAD & SCALP: normocephalic Eye: COMMON NORMALS: Equal, round and reactive pupils present and EOMs intact bilaterally Neck/C-Spine: COMMON NORMALS: no JVD Resp: COMMON NORMALS: normal respiratory effort, No retractions, No use of accessory muscles and clear to auscultation bilaterally AUSCULTATION: clear to auscultation bilaterally Cardio: COMMON NORMALS: regular rate, regular rhythm, S1 normal heart sound present and S2 normal heart sound present RATE: regular rate RHYTHM: r egular rhythm HEART SOUNDS: S1 normal heart sound present and S2 normal heart sound present GI: COMMON NORMALS: Normal to inspection, nondistended, normoactive bowel sounds present, Soft to palpation and non-tender PALPATION: Yes No hepatosplenomegaly present Extremity: COMMON NORMALS: no calf tenderness NARRATIVE EXTREMITY EXAM: 1+ pitting edema bilateral extremity Neuro: COMMON NORMALS: patient oriented x3, CN's II-XII intact bilaterally and moves all extremities Psych: COMMON NORMALS: mental status grossly normal Data 07/21/23 08:45 07/21/23 08:45 A&P Assessment and plan (1) Acute encephalopathy: (2) CHF exacerbation: (3) Urinary tract infection: Qualifiers: Hematuria presence: with hematuria Urinary tract infection type: acute cystitis Qualified Code(s): N30.01 - Acute cystitis with hematuria (4) Chronic anemia: Plan Unresponsive episode -Etiology unclear -Serial EKGs, serial troponins, telemetry monitoring -Cardiac echo -Carotid artery ultrasound -TSH, lactic acid, ammonia level -Neurochecks, aspiration precautions, and a stroke scale CHF exacerbation -Bilateral extreme edema -BNP -Lasix 40 mg IV twice daily Acute encephalopathy, as above UTI -History of VRE Enterococcus -Increased risk factors for ESBL -Start meropenem ? Start Zyvox liver cirrhosis hepatic coagulopathy dysphagia, placed on dysphagia diet History of anemia, history of lower GI bleed, has required multiple transfusions as outpatient recently transfer to tertiary level center however patient tells me that they did not find any significant source of bleeding -Monitor hemoglobin CODE STATUS, patient tells me that she is a full code she wants everything to be done, I advised her that during her last hospitalization and some of the paperwork from the jail shows that she is DNR/DNI however she is surprised, she tells me she wants everything done including chest compressions CPR or intubation Attestations 2 Medical Necessity Statement*: Patient requires hospitalization, inpatient, greater than 2 midnights, for unresponsive episode, CHF exacerbation, UTI Diagnoses Acute encephalopathy G93.40 CHF exacerbation I50.9 Urinary tract infection N30.01 Hematuria presence: with hematuria Urinary tract infection type: acute cystitis Chronic anemia D64.9
--- NOTE | 2023-07-21 17:18 | USCV_ITS ---
Daksha Machuca Age: 83 Gender: F : 1940 Exam Date: 07/21/2023 20:26 Ordering Phys: Kevin Aguero MD Technologist: TEODORO [place] [facility] [place]: altered mental status Patient is unresponsive in 269-1. BP: 127 / 67 HR: 97 Rhythm: Sinus Technical Quality: Adequate MEASUREMENTS (Male / Female) Normal Values 2D ECHO LV Diastolic Diameter PLAX 3.1 cm 4.2 - 5.9 / 3.9 - 5.3 cm LV Systolic Diameter PLAX 2.2 cm IVS Diastolic Thickness 1.2 cm 0.6 - 1.0 / 0.6 - 0.9 cm IVS Systolic Thickness 1.9 cm LVPW Diastolic Thickness 1.4 cm 0.6 - 1.0 / 0.6 - 0.9 cm LVPW Systolic Thickness 1.7 cm LVOT Diameter 1.6 cm LV Ejection Fraction 2D Teich 58.1 % LV Ejection Fraction MOD 2C 66.8 % LV Ejection Fraction 2C AL 71.6 % LA Diameter 4.3 cm LA Width 4.0 cm LA Height 5.3 cm RA Width 3.0 cm RA Height 4.8 cm Aorta at Sinotubular Diameter 3.1 cm IVC Diameter 1.8 cm M-MODE Aortic Annulus Diameter 3.3 cm LA Ao Ratio MM 1.3 MV E Point Septal Separation 0.4 cm DOPPLER AV Peak Velocity 153.0 cm/s LVOT Peak Velocity 136.0 cm/s AV Area Cont Eq vti 1.8 cm squared AV Area Cont Eq pk 1.8 cm squared MV Peak Velocity 156.0 cm/s MV Area PHT 3.6 cm squared Mitral E to A Ratio 0.8 MV E' Velocity 62.0 cm/s Mitral E to MV E' Ratio 10.0 Mitral E to LV E' Lateral Ratio 9.3 Mitral E to LV E' Septal Ratio 11.0 TR Peak Velocity 312.5 cm/s TR Peak Gradient 39.1 mmHg TV Peak E Velocity 63.0 cm/s Right Atrial Pressure 5.0 mmHg Pulmonary Artery Systolic Pressu 44.1 mmHg PV Peak Velocity 131.0 cm/s RV Acceleration Time 0.1 s RV Ejection Time 0.3 s RV AcT/ET 0.4 FINDINGS Left Ventricle Normal left ventricular size and systolic function, EF 67 %. No regional wall motion abnormalities. Mild left ventricular hypertrophy. Grade I/IV diastolic dysfunction (abnormal relaxation filling pattern), normal to mildly elevated filling pressures. Right Ventricle The right ventricle is normal in size and function. Right Atrium The right atrium is normal in size. Left Atrium Mildly increased left atrial size. Mitral Valve Thickened mitral valve. Aortic Valve Thickened aortic valve. Tricuspid Valve Moderate eccentric tricuspid valve regurgitation. Pulmonic Valve Mild pulmonary valve regurgitation. Thickened pulmonic valve. Estimated pulmonary artery peak systolic pressure 50 mmHg Pericardium Normal pericardium without effusion. Aorta Normal ascending aorta dimension. IVC Normal inferior vena cava. CONCLUSIONS Normal left ventricular size and systolic function, EF 67 %. No regional wall motion abnormalities. Mild left ventricular hypertrophy. Grade I/IV diastolic dysfunction (abnormal relaxation filling pattern), normal to mildly elevated filling pressures. Mildly increased left atrial size. Thickened aortic and mitral valves Moderate eccentric tricuspid valve regurgitation. Mild pulmonary valve regurgitation. Thickened pulmonic valve. Moderate pulmonary hypertension ,estimated pulmonary artery peak systolic pressure 50 mmHg. There is no pericardial effusion. There are no intracardiac masses. No similar previous studies are available for comparison Dr Mavis Paige MD [facility] (Electronically Signed) Final Date: 22 July 2023 08:12 S
[2023-07-21] MEDS: lidocaine 1% 5 ML in potassium chloride premix 100 ML 25 ML IV (17:37)
[2023-07-21] MEDS: potassium chloride ER 10 mEq Tablet PO (17:41)
[2023-07-21] MEDS: pantoprazole DR 40 mg Tablet PO (17:41)
[2023-07-21] MEDS: FUROsemide 10 mg/mL SDV 4mL 40 MG IVP (17:41)
[2023-07-21] MEDS: zinc oxide oint 30 gm 1 APPLIC TOPICAL (17:42)
[2023-07-21 18:01] LABS: ABG PCO2 37.2 mmHg (35-45); ABG PH Result 7.54 (7.35-7.45); Arterial Blood Gas Hematocrit 29.9 % (37-47); Base Excess ABG 8.3 mmol/L (-2.0-2.0); Blood Gas Allen Test Pos; Blood Gas LPM 0.5 %; Blood Gas Operator Identificat MONRP; Blood Gas Sample Site Brachial, right; Blood Gas Sample Type Arterial; HCO3 ABG 31.5 mmol/L (22-26); Oxygen Device NC; PO2 FiO2 Ratio Arterial Blood 0
[2023-07-21 18:02] LABS: NT Pro B Type Natriuretic Pept 449 pg/mL (0-450); Procalcitonin 0.12 ng/mL (0-0.5); Thyroid Stimulating Hormone 3.75 uIU/mL (0.27-4.20)
[2023-07-21] MEDS: linezolid premix 600 MG/300 ML PREMIX 300 MG IV (20:06)
[2023-07-21 21:48] LABS: INR 1.34 (0.8-1.2)
[2023-07-21 21:54] LABS: Ammonia 139 umol/L (11-51)
[2023-07-21 21:55] LABS: Lactic Sepsis W/Reflex 2.4 mmol/L (0.5-2.2)
[2023-07-21 22:11] LABS: Troponin 5 6HR 28.46 ng/L (0-10)
[2023-07-21 22:12] LABS: Troponin 5 6HR Delta -1.54 ng/L (0-12)
[2023-07-21 23:23] LABS: Reflex Lactate Order REFLEX LACTIC ORDERD
[2023-07-21] MEDS: meropenem 1,000 MG in sodium chloride 0.9% (plus) 50 ML 100 MG IV (23:24)
[2023-07-22] VITALS (7 sets, daily range): BP systolic 115–123; BP diastolic 60–72; PULSE 83–105; RESP 16–18; TEMP 36.6–37; O2SAT 93–96
[2023-07-22 00:19] LABS: Lactic Acid level (Lactate) 1.7 mmol/L (0.5-2.2)
[2023-07-22] MEDS: acetaminophen 325 mg Tablet 650 MG PO (04:08)
[2023-07-22] MEDS: FUROsemide 10 mg/mL SDV 4mL 40 MG IVP ×2 (04:18→15:43)
[2023-07-22 04:59] LABS: Basophils % 0.7 %; Eosinophils # 0.3 10^3/uL (0.0-0.8); Eosinophils % 5.6 %; Hematocrit 29.7 % (36-47); Lymphocytes # 1.1 10^3/uL (0.8-4.8); Lymphocytes % 20.6 %; Mean Corpuscular HGB Conc 29.3 g/dL (30-55); Mean Corpuscular Hemoglobin 29.7 pg (27-33); Mean Corpuscular Volume 101.4 fl (85-98); Mean Platelet Volume 10.5 fL (7.4-10.4); Monocytes # 0.8 10^3/uL (0.2-0.9); Monocytes % 14.2 %; Neutrophils # 3.11 10^3/uL (1.8-7.7); Neutrophils % 58.3 %; Nucleated Red Blood Cells % 0 %; Platelet Count 124 10^3/cmm (157-399); Red Blood Count 2.93 10^6/uL (3.85-5.65); Red Cell Distribution Width 20.7 % (12.1-15.1); White Blood Count 5.34 10^3/uL (3.29-11.43)
[2023-07-22 05:13] LABS: Partial Thromboplastin Time 30.5 SECONDS (23.9-36.7)
[2023-07-22 05:23] LABS: Alanine Aminotransferase 12 U/L (0-33); Alkaline Phosphatase 97 U/L (35-105); Anion Gap 11.7 (5-19); Aspartate Amino Transferase 24 U/L (0-32); Blood Urea Nitrogen 13 mg/dL (8-23); Calcium 7.5 mg/dL (8.5-10.5); Carbon Dioxide 29 mmol/L (22-29); Chloride 105 mmol/L (98-107); Globulin 3.3 g/dL (1.3-4.6); Glucose 92 mg/dL (65-115); Magnesium 1.8 mg/dL (1.7-2.3); Osmolality Calculated 294 mOsm/kg (285-295); Phosphorus 2.7 mg/dL (2.5-4.5); Potassium 3.7 mmol/L (3.5-5.1); Sodium 142 mmol/L (136-145); Total Bilirubin 1.3 mg/dL (0.15-1.2); Total Protein 5.3 g/dL (6.6-8.7)
[2023-07-22] MEDS: meropenem 1,000 MG in sodium chloride 0.9% (plus) 50 ML 100 MG IV ×2 (06:40→14:45)
[2023-07-22] MEDS: sertraline 50 mg Tablet 25 MG PO (06:42)
[2023-07-22] MEDS: multivitamin therapeutic Tablet 1 TAB PO (06:43)
[2023-07-22] MEDS: lactulose oral liq 20 gm/30 mL UDC PO ×2 (07:18→12:42)
[2023-07-22] MEDS: budesonide 0.5 mg/2 mL Neb INHALATION ×2 (07:59→21:09)
[2023-07-22] MEDS: ipratropium-albuterol 3 mL Neb INHALATION ×2 (07:59→21:09)
[2023-07-22] MEDS: zinc oxide oint 30 gm 1 APPLIC TOPICAL ×2 (08:10→17:58)
[2023-07-22] MEDS: linezolid premix 600 MG/300 ML PREMIX 300 MG IV ×2 (08:10→20:45)
[2023-07-22] MEDS: ferrous sulfate EC 325 mg Tablet PO (08:11)
[2023-07-22] MEDS: pantoprazole DR 40 mg Tablet PO ×2 (08:12→17:58)
[2023-07-22] MEDS: potassium chloride ER 10 mEq Tablet PO ×2 (08:12→17:58)
[2023-07-22] MEDS: gabapentin 400 mg Capsule PO ×3 (08:12→20:45)
[2023-07-22] MEDS: spironolactone 25 mg Tablet PO (08:12)
[2023-07-22 08:25] LABS: Ammonia 86 umol/L (11-51)
--- NOTE | 2023-07-22 11:30 | P.PN_ITS ---
Subjective 2 Subjective: patient was seen this morning, she denies sob, but does report persistent edema, professor of nursing have her on her side, she does have a stage 1 decubitus ulcer over sacrum, does report pain over location Vitals/I&O/Wt Last Vital Signs Temp 97.8 F 07/22/23 08:00 Pulse 86 07/22/23 08:00 Resp 16 07/22/23 08:00 BP 123/71 07/22/23 08:00 Pulse Ox 94 07/22/23 08:00 O2 Del Method Room Air 07/22/23 08:00 O2 Flow Rate 0.5 07/21/23 18:04 07/21/23 07/22/23 07/22/23 22:59 06:59 14:59 Intake Total 645 / 1195 170 / 1365 350 / 350 Output Total 650 / 650 Balance 645 / 1195 -480 / 715 350 / 350 Weight last 48 hrs Weight 78.557 kg Weight 83.092 kg Physical Exam 2 Const: COMMON NORMALS: no acute distress and patient oriented x3 Resp: COMMON NORMALS: normal respiratory effort, No retractions, No use of accessory muscles and clear to auscultation bilaterally AUSCULTATION: clear to auscultation bilaterally Cardio: COMMON NORMALS: regular rate, regular rhythm, S1 normal heart sound present and S2 normal heart sound present RATE: regular rate RHYTHM: r egular rhythm HEART SOUNDS: S1 normal heart sound present and S2 normal heart sound present GI: COMMON NORMALS: Normal to inspection, nondistended, normoactive bowel sounds present and non-tender Back/Pelvis: OTHER: sacral decubitus ulcer measuring 2x2cm Extremity: COMMON NORMALS: no pedal edema Neuro: COMMON NORMALS: patient oriented x3 and moves all extremities Psych: COMMON NORMALS: mental status grossly normal Data 07/22/23 04:02 07/22/23 04:02 Micro: Microbiology 07/21/23 09:20 Urine Culture - Preliminary Urine,Clean Catch Gram Negative Rods A&P Assessment and plan (1) Acute encephalopathy: (2) CHF exacerbation: (3) Urinary tract infection: Qualifiers: Hematuria presence: with hematuria Urinary tract infection type: acute cystitis Qualified Code(s): N30.01 - Acute cystitis with hematuria (4) Chronic anemia: (5) Sacral decubitus ulcer, stage II: (6) Hyperammonemia: Plan Unresponsive episode, no repeat episodes -Etiology unclear -Serial EKGs, serial troponins, telemetry monitoring -Cardiac echo CONCLUSIONS Normal left ventricular size and systolic function, EF 67 %. No regional wall motion abnormalities. Mild left ventricular hypertrophy. Grade I/IV diastolic dysfunction (abnormal relaxation filling pattern), normal to mildly elevated filling pressures. Mildly increased left atrial size. Thickened aortic and mitral valves Moderate eccentric tricuspid valve regurgitation. Mild pulmonary valve regurgitation. Thickened pulmonic valve. Moderate pulmonary hypertension ,estimated pulmonary artery peak systolic pressure 50 mmHg. There is no pericardial effusion. There are no intracardiac masses. No similar previous studies are available for compariso -Carotid artery ultrasound -Neurochecks, aspiration precautions, and a stroke scale Hyperammonemia, 86, secondary to liver cirrhosis, continue lactulose CHF exacerbation -Bilateral extremity edema -BNP -Lasix 40 mg IV twice daily, with albumin Acute encephalopathy, as above UTI -History of VRE Enterococcus -Increased risk factors for ESBL -Start meropenem ? Zyvox liver cirrhosis hepatic coagulopathy dysphagia, placed on dysphagia diet History of anemia, history of lower GI bleed, has required multiple transfusions as outpatient recently transfer to tertiary level center however patient tells me that they did not find any significant source of bleeding -Monitor hemoglobin sacral decubitus ulcer, stage 1-2 -wound care -respositioning CODE STATUS, patient tells me that she is a full code she wants everything to be done, I advised her that during her last hospitalization and some of the paperwork from the skilled nursing shows that she is DNR/DNI however she is surprised, she tells me she wants everything done including chest compressions CPR or intubation plan for today start lactulose for hyperammonemia, countinue ivabx, coutinue diuresis Attestations 2 Medical Necessity Statement*: patient requires hospitalization for hyperammonemia, uti, chf Diagnoses Acute encephalopathy G93.40 CHF exacerbation I50.9 Urinary tract infection N30.01 Hematuria presence: with hematuria Urinary tract infection type: acute cystitis Chronic anemia D64.9 Sacral decubitus ulcer, stage II L89.152 Hyperammonemia E72.20
[2023-07-22] MEDS: albumin 25 G/100 ML BAG 60 G IV (15:43)
[2023-07-23] VITALS (8 sets, daily range): BP systolic 107–134; BP diastolic 58–72; PULSE 73–106; RESP 16–22; TEMP 36.6–37.5; O2SAT 92–99; BMI 31.0
[2023-07-23] MEDS: meropenem 1,000 MG in sodium chloride 0.9% (plus) 50 ML 100 MG IV ×3 (00:14→15:32)
[2023-07-23] MEDS: lactulose oral liq 20 gm/30 mL UDC PO ×2 (01:26→06:36)
[2023-07-23] MEDS: FUROsemide 10 mg/mL SDV 4mL 40 MG IVP ×2 (03:31→15:09)
[2023-07-23] MEDS: albumin 25 G/100 ML BAG 60 G IV ×2 (03:31→15:25)
[2023-07-23 06:04] LABS: Basophils % 0.8 %; Eosinophils # 0.2 10^3/uL (0.0-0.8); Eosinophils % 9.4 %; Hematocrit 25.8 % (36-47); Lymphocytes # 0.6 10^3/uL (0.8-4.8); Lymphocytes % 22.8 %; Mean Corpuscular HGB Conc 29.5 g/dL (30-55); Mean Corpuscular Hemoglobin 29.9 pg (27-33); Mean Corpuscular Volume 101.6 fl (85-98); Mean Platelet Volume 10.9 fL (7.4-10.4); Monocytes # 0.4 10^3/uL (0.2-0.9); Monocytes % 15.4 %; Neutrophils # 1.31 10^3/uL (1.8-7.7); Neutrophils % 51.6 %; Nucleated Red Blood Cells % 0 %; Platelet Count 79 10^3/cmm (157-399); Red Blood Count 2.54 10^6/uL (3.85-5.65); White Blood Count 2.54 10^3/uL (3.29-11.43)
[2023-07-23 06:26] LABS: Ammonia 46 umol/L (11-51)
[2023-07-23 06:27] LABS: Alanine Aminotransferase 10 U/L (0-33); Albumin Level 2.7 g/dL (3.5-5.2); Alkaline Phosphatase 87 U/L (35-105); Anion Gap 11.4 (5-19); Aspartate Amino Transferase 20 U/L (0-32); Blood Urea Nitrogen 14 mg/dL (8-23); Carbon Dioxide 31 mmol/L (22-29); Chloride 104 mmol/L (98-107); Globulin 3.1 g/dL (1.3-4.6); Glucose 101 mg/dL (65-115); Magnesium 1.8 mg/dL (1.7-2.3); Osmolality Calculated 297 mOsm/kg (285-295); Phosphorus 3.6 mg/dL (2.5-4.5); Potassium 3.4 mmol/L (3.5-5.1); Sodium 143 mmol/L (136-145); Total Bilirubin 1.3 mg/dL (0.15-1.2); Total Protein 5.8 g/dL (6.6-8.7)
[2023-07-23] MEDS: sertraline 50 mg Tablet 25 MG PO (06:36)
[2023-07-23] MEDS: multivitamin therapeutic Tablet 1 TAB PO (06:36)
[2023-07-23] MEDS: gabapentin 400 mg Capsule PO ×3 (08:12→20:13)
[2023-07-23] MEDS: potassium chloride ER 10 mEq Tablet PO ×2 (08:12→17:17)
[2023-07-23] MEDS: pantoprazole DR 40 mg Tablet PO ×2 (08:13→17:16)
[2023-07-23] MEDS: spironolactone 25 mg Tablet PO (08:14)
[2023-07-23] MEDS: ferrous sulfate EC 325 mg Tablet PO (08:14)
[2023-07-23] MEDS: linezolid premix 600 MG/300 ML PREMIX 300 MG IV ×2 (08:16→20:13)
[2023-07-23] MEDS: budesonide 0.5 mg/2 mL Neb INHALATION ×2 (08:42→20:22)
[2023-07-23] MEDS: zinc oxide oint 30 gm 1 APPLIC TOPICAL ×2 (09:44→17:17)
[2023-07-23] MEDS: potassium chloride ER 20 mEq Tablet 40 MEQ PO (09:45)
--- NOTE | 2023-07-23 11:03 | P.PN_ITS ---
Subjective 2 Subjective: Patient was seen this morning, she tells me that her edema is improving, denies any fevers, chills, cough, her ammonia levels are improving, she tells me that she wants to decrease lactulose Vitals/I&O/Wt Last Vital Signs Temp 98.2 F 07/23/23 08:00 Pulse 94 07/23/23 08:00 Resp 18 07/23/23 08:00 BP 124/69 07/23/23 08:00 Pulse Ox 92 07/23/23 08:00 O2 Del Method Room Air 07/23/23 08:00 O2 Flow Rate 0.5 07/21/23 18:04 07/22/23 07/23/23 07/23/23 22:59 06:59 14:59 Intake Total 690 / 1040 150 / 1190 350 / 350 Output Total 1450 / 1450 350 / 1800 800 / 800 Balance -760 / -410 -200 / -610 -450 / -450 Weight last 48 hrs Weight 77.02 kg Weight 78.557 kg Weight 83.092 kg Physical Exam 2 Const: COMMON NORMALS: no acute distress and patient oriented x3 Resp: COMMON NORMALS: normal respiratory effort, No retractions, No use of accessory muscles and clear to auscultation bilaterally AUSCULTATION: clear to auscultation bilaterally Cardio: COMMON NORMALS: regular rate, regular rhythm, S1 normal heart sound present and S2 normal heart sound present RATE: regular rate RHYTHM: r egular rhythm HEART SOUNDS: S1 normal heart sound present and S2 normal heart sound present GI: COMMON NORMALS: Normal to inspection, nondistended, normoactive bowel sounds present and non-tender Extremity: NARRATIVE EXTREMITY EXAM: 1+ pitting edema Neuro: COMMON NORMALS: patient oriented x3 Psych: COMMON NORMALS: mental status grossly normal Data 07/23/23 05:47 07/23/23 05:47 Micro: Microbiology 07/21/23 09:20 Urine Culture - Preliminary Urine,Clean Catch Gram Negative Rods Strep species, gamma-hemolytic A&P Assessment and plan (1) Acute encephalopathy: (2) CHF exacerbation: (3) Urinary tract infection: Qualifiers: Hematuria presence: with hematuria Urinary tract infection type: acute cystitis Qualified Code(s): N30.01 - Acute cystitis with hematuria (4) Chronic anemia: (5) Sacral decubitus ulcer, stage II: (6) Hyperammonemia: Plan Unresponsive episode, no repeat episodes -Etiology unclear -Serial EKGs, serial troponins, telemetry monitoring -Cardiac echo CONCLUSIONS Normal left ventricular size and systolic function, EF 67 %. No regional wall motion abnormalities. Mild left ventricular hypertrophy. Grade I/IV diastolic dysfunction (abnormal relaxation filling pattern), normal to mildly elevated filling pressures. Mildly increased left atrial size. Thickened aortic and mitral valves Moderate eccentric tricuspid valve regurgitation. Mild pulmonary valve regurgitation. Thickened pulmonic valve. Moderate pulmonary hypertension ,estimated pulmonary artery peak systolic pressure 50 mmHg. There is no pericardial effusion. There are no intracardiac masses. No similar previous studies are available for compariso -Carotid artery ultrasound -Neurochecks, aspiration precautions, and a stroke scale Hyperammonemia, 46, secondary to liver cirrhosis, decrease lactulose to once daily CHF exacerbation -Bilateral extremity edema -BNP -Lasix 40 mg IV twice daily, with albumin Acute encephalopathy, as above UTI -History of VRE Enterococcus -Increased risk factors for ESBL -Start meropenem ? Zyvox liver cirrhosis hepatic coagulopathy dysphagia, placed on dysphagia diet History of anemia, history of lower GI bleed, has required multiple transfusions as outpatient recently transfer to tertiary level center however patient tells me that they did not find any significant source of bleeding -Monitor hemoglobin sacral decubitus ulcer, stage 1-2 -wound care -respositioning CODE STATUS, patient tells me that she is a full code she wants everything to be done, I advised her that during her last hospitalization and [facility] shows that she is DNR/DNI however she is surprised, she tells me she wants everything done including chest compressions CPR or intubation plan for today continue diuresis, continue IV antibiotics, Attestations 2 Medical Necessity Statement*: She requires hospitalization for CHF exacerbation fluid overload requiring IV diuresis, UTI, requiring IV antibiotics Diagnoses Acute encephalopathy G93.40 CHF exacerbation I50.9 Urinary tract infection N30.01 Hematuria presence: with hematuria Urinary tract infection type: acute cystitis Chronic anemia D64.9 Sacral decubitus ulcer, stage II L89.152 Hyperammonemia E72.20
--- NOTE | 2023-07-23 12:27 | PC.SOCIAL ---
Pg 2 IMM Explained to pt Pg 2 IMM. No questions voiced. Provided pt a copy. Initialed, dated, & timed a copy & placed in chart.
[2023-07-24] VITALS (8 sets, daily range): BP systolic 104–120; BP diastolic 61–73; PULSE 77–88; RESP 16–18; TEMP 36.4–37.1; O2SAT 98–100
[2023-07-24] MEDS: meropenem 1,000 MG in sodium chloride 0.9% (plus) 50 ML 100 MG IV ×3 (00:39→17:54)
[2023-07-24] MEDS: FUROsemide 10 mg/mL SDV 4mL 40 MG IVP ×2 (04:23→15:20)
[2023-07-24] MEDS: albumin 25 G/100 ML BAG 60 G IV ×2 (04:23→15:20)
[2023-07-24 05:31] LABS: Eosinophils # 0.3 10^3/uL (0.0-0.8); Hematocrit 25.7 % (36-47); Lymphocytes # 0.8 10^3/uL (0.8-4.8); Lymphocytes % 24.3 %; Mean Corpuscular Hemoglobin 30.4 pg (27-33); Mean Corpuscular Volume 101.6 fl (85-98); Monocytes # 0.5 10^3/uL (0.2-0.9); Monocytes % 15.2 %; Neutrophils # 1.52 10^3/uL (1.8-7.7); Neutrophils % 49.2 %; Nucleated Red Blood Cells % 0 %; Platelet Count 79 10^3/cmm (157-399); Red Blood Count 2.53 10^6/uL (3.85-5.65); Red Cell Distribution Width 20.4 % (12.1-15.1); White Blood Count 3.09 10^3/uL (3.29-11.43)
[2023-07-24 05:46] LABS: Alanine Aminotransferase 10 U/L (0-33); Albumin Level 2.7 g/dL (3.5-5.2); Alkaline Phosphatase 76 U/L (35-105); Aspartate Amino Transferase 19 U/L (0-32); Blood Urea Nitrogen 12 mg/dL (8-23); Calcium 7.7 mg/dL (8.5-10.5); Carbon Dioxide 30 mmol/L (22-29); Chloride 104 mmol/L (98-107); Globulin 2.7 g/dL (1.3-4.6); Glucose 85 mg/dL (65-115); Magnesium 1.9 mg/dL (1.7-2.3); Osmolality Calculated 293 mOsm/kg (285-295); Phosphorus 2.9 mg/dL (2.5-4.5); Sodium 142 mmol/L (136-145); Total Bilirubin 1.5 mg/dL (0.15-1.2); Total Protein 5.4 g/dL (6.6-8.7)
[2023-07-24 05:49] LABS: Ammonia 48 umol/L (11-51)
[2023-07-24] MEDS: multivitamin therapeutic Tablet 1 TAB PO (06:27)
[2023-07-24] MEDS: sertraline 50 mg Tablet 25 MG PO (06:27)
[2023-07-24] MEDS: lactulose oral liq 20 gm/30 mL UDC PO (06:29)
[2023-07-24] MEDS: budesonide 0.5 mg/2 mL Neb INHALATION ×2 (08:11→19:58)
[2023-07-24] MEDS: potassium chloride ER 10 mEq Tablet PO ×2 (08:25→17:55)
[2023-07-24] MEDS: gabapentin 400 mg Capsule PO ×3 (08:25→20:20)
[2023-07-24] MEDS: spironolactone 25 mg Tablet PO (08:25)
[2023-07-24] MEDS: ferrous sulfate EC 325 mg Tablet PO (08:25)
[2023-07-24] MEDS: linezolid premix 600 MG/300 ML PREMIX 300 MG IV (08:25)
[2023-07-24] MEDS: pantoprazole DR 40 mg Tablet PO ×2 (08:25→17:55)
[2023-07-24] MEDS: zinc oxide oint 30 gm 1 APPLIC TOPICAL ×2 (08:36→17:55)
[2023-07-24] MEDS: metOLazone 5 MG Tablet PO (11:23)
--- NOTE | 2023-07-24 15:05 | P.PN_ITS ---
Subjective 2 Subjective: Patient was seen this morning, she tells me that her diarrhea is persisting she had diarrhea before she came to the hospital, we discussed her improving ammonia levels, she continues to have 1+ pitting edema, she did have about 3 L of urine output, we discussed continue diuresis, adding metolazone, she is agreeable, Vitals/I&O/Wt Last Vital Signs Temp 98.1 F 07/24/23 12:24 Pulse 83 07/24/23 12:24 Resp 17 07/24/23 12:24 BP 115/70 07/24/23 12:24 Pulse Ox 99 07/24/23 12:24 O2 Del Method Nasal Cannula 07/24/23 12:24 O2 Flow Rate 2 07/24/23 08:12 07/24/23 07/24/23 07/24/23 06:59 14:59 22:59 Intake Total 150 / 1310 1070 / 1070 Output Total 600 / 2250 1500 / 1500 Balance -450 / -940 -430 / -430 Weight last 48 hrs Weight 74.616 kg Weight 77.02 kg Physical Exam 2 Const: COMMON NORMALS: no acute distress and patient oriented x3 Resp: COMMON NORMALS: normal respiratory effort, No retractions, No use of accessory muscles and clear to auscultation bilaterally AUSCULTATION: clear to auscultation bilaterally Cardio: COMMON NORMALS: regular rate, regular rhythm, S1 normal heart sound present and S2 normal heart sound present RATE: regular rate RHYTHM: r egular rhythm HEART SOUNDS: S1 normal heart sound present and S2 normal heart sound present GI: COMMON NORMALS: Normal to inspection, nondistended, normoactive bowel sounds present and non-tender Extremity: NARRATIVE EXTREMITY EXAM: 1+ pitting edema bilateral extremity Neuro: COMMON NORMALS: patient oriented x3 Psych: COMMON NORMALS: mental status grossly normal Data 07/24/23 04:46 07/24/23 04:46 Micro: Microbiology 07/21/23 09:20 Urine Culture - Preliminary Urine,Clean Catch Pseudomonas aeruginosa Strep species, gamma-hemolytic A&P Assessment and plan (1) Acute encephalopathy: (2) CHF exacerbation: (3) Urinary tract infection: Qualifiers: Hematuria presence: with hematuria Urinary tract infection type: acute cystitis Qualified Code(s): N30.01 - Acute cystitis with hematuria (4) Chronic anemia: (5) Sacral decubitus ulcer, stage II: (6) Hyperammonemia: Plan Unresponsive episode, no repeat episodes -Etiology unclear -Serial EKGs, serial troponins, telemetry monitoring -Cardiac echo CONCLUSIONS Normal left ventricular size and systolic function, EF 67 %. No regional wall motion abnormalities. Mild left ventricular hypertrophy. Grade I/IV diastolic dysfunction (abnormal relaxation filling pattern), normal to mildly elevated filling pressures. Mildly increased left atrial size. Thickened aortic and mitral valves Moderate eccentric tricuspid valve regurgitation. Mild pulmonary valve regurgitation. Thickened pulmonic valve. Moderate pulmonary hypertension ,estimated pulmonary artery peak systolic pressure 50 mmHg. There is no pericardial effusion. There are no intracardiac masses. No similar previous studies are available for compariso -Carotid artery ultrasound -Neurochecks, aspiration precautions, and a stroke scale Hyperammonemia, 46, secondary to liver cirrhosis, decrease lactulose to once daily CHF exacerbation -Bilateral extremity edema persists -BNP -Lasix 40 mg IV twice daily, with albumin 1 dose albumin today Acute encephalopathy, as above UTI -History of VRE Enterococcus -Increased risk factors for ESBL -Start meropenem liver cirrhosis hepatic coagulopathy dysphagia, placed on dysphagia diet History of anemia, history of lower GI bleed, has required multiple transfusions as outpatient recently transfer to tertiary level center however patient tells me that they did not find any significant source of bleeding -Monitor hemoglobin sacral decubitus ulcer, stage 1-2 -wound care -respositioning CODE STATUS, patient tells me that she is a full code she wants everything to be done, I advised her that during her last hospitalization and some of the paperwork from the assisted shows that she is DNR/DNI however she is surprised, she tells me she wants everything done including chest compressions CPR or intubation plan for today increase diuresis with Lasix 40 mg IV twice daily with metolazone, continue albumin, stop Zyvox continue meropenem monitor urine culture monitor serum electrolytes, monitor hemoglobin, spoke to patient, spoke to nursing staff, add on stool studies Attestations 2 Medical Necessity Statement*: Patient requires hospitalization for fluid overload requiring diuresis, UTI, requiring meropenem Diagnoses Acute encephalopathy G93.40 CHF exacerbation I50.9 Urinary tract infection N30.01 Hematuria presence: with hematuria Urinary tract infection type: acute cystitis Chronic anemia D64.9 Sacral decubitus ulcer, stage II L89.152 Hyperammonemia E72.20
[2023-07-24] MEDS: linezolid 600 mg Tablet PO (20:20)
[2023-07-25] VITALS (9 sets, daily range): BP systolic 100–128; BP diastolic 55–74; PULSE 79–90; RESP 16–18; TEMP 36.6–37.1; O2SAT 98–100; BMI 29.2
[2023-07-25] MEDS: meropenem 1,000 MG in sodium chloride 0.9% (plus) 50 ML 100 MG IV ×4 (00:15→23:58)
[2023-07-25] MEDS: albumin 25 G/100 ML BAG 60 G IV (03:16)
[2023-07-25] MEDS: FUROsemide 10 mg/mL SDV 4mL 40 MG IVP (03:16)
[2023-07-25] MEDS: multivitamin therapeutic Tablet 1 TAB PO (06:28)
[2023-07-25] MEDS: sertraline 50 mg Tablet 25 MG PO (06:28)
[2023-07-25] MEDS: lactulose oral liq 20 gm/30 mL UDC PO (06:29)
[2023-07-25] MEDS: ferrous sulfate EC 325 mg Tablet PO (07:57)
[2023-07-25] MEDS: spironolactone 25 mg Tablet PO (07:57)
[2023-07-25] MEDS: potassium chloride ER 10 mEq Tablet PO ×2 (07:57→16:58)
[2023-07-25] MEDS: pantoprazole DR 40 mg Tablet PO ×2 (07:57→16:57)
[2023-07-25] MEDS: linezolid 600 mg Tablet PO ×2 (07:57→20:00)
[2023-07-25] MEDS: zinc oxide oint 30 gm 1 APPLIC TOPICAL ×2 (07:57→16:58)
[2023-07-25] MEDS: gabapentin 400 mg Capsule PO ×3 (07:57→20:00)
[2023-07-25 08:50] LABS: C.Diff PCR (Lab) NEGATIVE (Negative)
[2023-07-25 09:06] LABS: Basophils % 0.8 %; Eosinophils # 0.3 10^3/uL (0.0-0.8); Eosinophils % 10.8 %; Hematocrit 25.3 % (36-47); Lymphocytes # 0.5 10^3/uL (0.8-4.8); Lymphocytes % 18.8 %; Mean Corpuscular Hemoglobin 30.6 pg (27-33); Mean Platelet Volume 10.9 fL (7.4-10.4); Monocytes # 0.3 10^3/uL (0.2-0.9); Monocytes % 13.2 %; Nucleated Red Blood Cells % 0 %; Platelet Count 65 10^3/cmm (157-399); Red Blood Count 2.48 10^6/uL (3.85-5.65); Red Cell Distribution Width 19.6 % (12.1-15.1)
[2023-07-25 09:26] LABS: Alanine Aminotransferase 7 U/L (0-33); Albumin Level 3.3 g/dL (3.5-5.2); Alkaline Phosphatase 70 U/L (35-105); Anion Gap 13.8 (5-19); Aspartate Amino Transferase 16 U/L (0-32); Blood Urea Nitrogen 20 mg/dL (8-23); Calcium 8.4 mg/dL (8.5-10.5); Carbon Dioxide 29 mmol/L (22-29); Chloride 99 mmol/L (98-107); Creatinine Clr Calc Pharmacy 44.1535; Globulin 2.6 g/dL (1.3-4.6); Glucose 105 mg/dL (65-115); Magnesium 1.7 mg/dL (1.7-2.3); Osmolality Calculated 289 mOsm/kg (285-295); Phosphorus 3.1 mg/dL (2.5-4.5); Potassium 3.8 mmol/L (3.5-5.1); Sodium 138 mmol/L (136-145); Total Bilirubin 1.6 mg/dL (0.15-1.2); Total Protein 5.9 g/dL (6.6-8.7)
[2023-07-25 09:27] LABS: Ammonia 43 umol/L (11-51)
--- NOTE | 2023-07-25 13:14 | P.PN_ITS ---
Vitals/I&O/Wt Last Vital Signs Temp 98.6 F 07/25/23 07:53 Pulse 82 07/25/23 08:14 Resp 16 07/25/23 08:14 BP 118/72 07/25/23 07:53 Pulse Ox 98 07/25/23 08:14 O2 Del Method Nasal Cannula 07/25/23 08:14 O2 Flow Rate 2 07/25/23 08:14 07/24/23 07/25/23 07/25/23 22:59 06:59 14:59 Intake Total 830 / 1900 150 / 2050 410 / 410 Output Total 2000 / 3500 1650 / 5150 Balance -1170 / -1600 -1500 / -3100 410 / 410 Weight last 48 hrs Weight 72.484 kg Weight 74.616 kg Physical Exam 2 Const: COMMON NORMALS: no acute distress and patient oriented x3 Resp: COMMON NORMALS: normal respiratory effort, No retractions, No use of accessory muscles and clear to auscultation bilaterally AUSCULTATION: clear to auscultation bilaterally Cardio: COMMON NORMALS: regular rate, regular rhythm, S1 normal heart sound present and S2 normal heart sound present RATE: regular rate RHYTHM: r egular rhythm HEART SOUNDS: S1 normal heart sound present and S2 normal heart sound present GI: COMMON NORMALS: Normal to inspection, nondistended, normoactive bowel sounds present and non-tender Extremity: NARRATIVE EXTREMITY EXAM: 1+ edema Neuro: COMMON NORMALS: patient oriented x3 Psych: COMMON NORMALS: mental status grossly normal Data 07/25/23 08:52 07/25/23 08:52 Micro: Microbiology 07/25/23 06:27 Stool Lactoferrin - Final Stool Occult Blood (FIT) - Final 07/21/23 09:20 Urine Culture - Final Urine,Clean Catch Pseudomonas aeruginosa Enterococcus faecium vre A&P Assessment and plan (1) Acute encephalopathy: (2) CHF exacerbation: (3) Urinary tract infection: Qualifiers: Hematuria presence: with hematuria Urinary tract infection type: acute cystitis Qualified Code(s): N30.01 - Acute cystitis with hematuria (4) Chronic anemia: (5) Sacral decubitus ulcer, stage II: (6) Hyperammonemia: (7) 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 No regional wall motion abnormalities. Mild left ventricular hypertrophy. Grade I/IV diastolic dysfunction (abnormal relaxation filling pattern), normal to mildly elevated filling pressures. Mildly increased left atrial size. Thickened aortic and mitral valves Moderate eccentric tricuspid valve regurgitation. Mild pulmonary valve regurgitation. Thickened pulmonic valve. Moderate pulmonary hypertension ,estimated pulmonary artery peak systolic pressure 50 mmHg. There is no pericardial effusion. There are no intracardiac masses. No similar previous studies are available for compariso -Carotid artery ultrasound -Neurochecks, aspiration precautions, and a stroke scale Hyperammonemia, 46, secondary to liver cirrhosis, decrease lactulose to once daily CHF exacerbation -Bilateral extremity edema persists -BNP -Switch to p.o. Lasix today Acute encephalopathy, resolved UTI -History of VRE Enterococcus -Increased risk factors for ESBL -Urine cultures showing Pseudomonas species, patient has multiple drug allergies, will have to use meropenem -Neurotrophic coccus VRE, continue Zyvox liver cirrhosis hepatic coagulopathy dysphagia, placed on dysphagia diet History of anemia, history of lower GI bleed, has required multiple transfusions as outpatient recently transfer to tertiary level center however patient tells me that they did not find any significant source of bleeding -Monitor hemoglobin sacral decubitus ulcer, stage 1-2 -wound care -respositioning CODE STATUS, patient tells me that she is a full code she wants everything to be done, I advised her that during her last hospitalization and some of the paperwork from the retirement shows that she is DNR/DNI however she is surprised, she tells me she wants everything done including chest compressions CPR or intubation plan for today patient has Enterococcus VRE UTI continue Zyvox, due to multiple drug allergies she is going to need meropenem for her Pseudomonas UTI, for fluid overload continue IV diuresis switch to p.o. 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
[2023-07-25] MEDS: FUROsemide 40 mg Tablet PO (16:02)
[2023-07-25] MEDS: acetaminophen 325 mg Tablet 650 MG PO ×2 (16:02→20:46)
[2023-07-25] MEDS: budesonide 0.5 mg/2 mL Neb INHALATION (20:32)
[2023-07-25] MEDS: ipratropium-albuterol 3 mL Neb INHALATION (20:32)
[2023-07-26] VITALS (13 sets, daily range): BP systolic 101–115; BP diastolic 58–75; PULSE 80–94; RESP 16–18; TEMP 36.4–37; O2SAT 97–100
[2023-07-26 05:47] LABS: Basophils % 0.5 %; Eosinophils # 0.2 10^3/uL (0.0-0.8); Eosinophils % 11.3 %; Hematocrit 25.4 % (36-47); Lymphocytes # 0.6 10^3/uL (0.8-4.8); Lymphocytes % 28.2 %; Mean Corpuscular HGB Conc 28.7 g/dL (30-55); Mean Corpuscular Hemoglobin 30.2 pg (27-33); Mean Platelet Volume 10.9 fL (7.4-10.4); Monocytes # 0.3 10^3/uL (0.2-0.9); Monocytes % 12.7 %; Neutrophils % 46.8 %; Nucleated Red Blood Cells % 0 %; Platelet Count 59 10^3/cmm (157-399); Red Blood Count 2.42 10^6/uL (3.85-5.65); Red Cell Distribution Width 19.3 % (12.1-15.1); White Blood Count 2.13 10^3/uL (3.29-11.43)
[2023-07-26] MEDS: sertraline 50 mg Tablet 25 MG PO (05:59)
[2023-07-26] MEDS: multivitamin therapeutic Tablet 1 TAB PO (05:59)
[2023-07-26 06:11] LABS: Anion Gap 10.8 (5-19); Blood Urea Nitrogen 27 mg/dL (8-23); Calcium 8.1 mg/dL (8.5-10.5); Carbon Dioxide 29 mmol/L (22-29); Chloride 99 mmol/L (98-107); Glucose 86 mg/dL (65-115); NT Pro B Type Natriuretic Pept 1064 pg/mL (0-450); Osmolality Calculated 284 mOsm/kg (285-295); Potassium 3.8 mmol/L (3.5-5.1); Sodium 135 mmol/L (136-145)
[2023-07-26] MEDS: zinc oxide oint 30 gm 1 APPLIC TOPICAL (08:14)
[2023-07-26] MEDS: gabapentin 400 mg Capsule PO ×2 (08:15→15:02)
[2023-07-26] MEDS: meropenem 1,000 MG in sodium chloride 0.9% (plus) 50 ML 100 MG IV (08:15)
[2023-07-26] MEDS: ferrous sulfate EC 325 mg Tablet PO (08:15)
[2023-07-26] MEDS: linezolid 600 mg Tablet PO (08:15)
[2023-07-26] MEDS: pantoprazole DR 40 mg Tablet PO (08:15)
[2023-07-26] MEDS: spironolactone 25 mg Tablet PO (08:15)
[2023-07-26] MEDS: acetaminophen 325 mg Tablet 650 MG PO (08:15)
[2023-07-26] MEDS: potassium chloride ER 10 mEq Tablet PO (08:16)
[2023-07-26] MEDS: FUROsemide 40 mg Tablet PO (08:16)
[2023-07-26] MEDS: ipratropium-albuterol 3 mL Neb INHALATION (08:45)
[2023-07-26] MEDS: budesonide 0.5 mg/2 mL Neb INHALATION (08:45)
--- NOTE | 2023-07-26 10:24 | PM.DCS ---
Discharge Providers Date of Admission: 07/21/23 17:12 Date of Discharge: July 26, 2023 Attending Provider at Admission: Kevin Aguero MD Attending Provider at Discharge: Kevin Aguero MD Primary Care Provider: Sudheer Wood MD Diagnoses at Discharge Discharge Diagnosis (1) Acute encephalopathy: Status: Acute (2) CHF exacerbation: Status: Acute (3) Urinary tract infection: Status: Acute Qualifiers: Hematuria presence: with hematuria Urinary tract infection type: acute cystitis Qualified Code(s): N30.01 - Acute cystitis with hematuria (4) Chronic anemia: Status: Acute (5) Sacral decubitus ulcer, stage II: Status: Acute (6) Hyperammonemia: Status: Acute (7) 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 Currently patient is alert to person, to place, not to time she can follow all commands, she tells me that they sent her here because she was not responsive. Currently she denies any chest pain, no palpitations, no abdominal pain she complains of bilateral lower extremity swelling with weeping edema. She denies any blurry vision no facial droop no slurring of words no focal weakness but does report weakness all over. I informed her that she does have a UTI but she denies any dysuria, no hematuria, no flank pain. We did discuss her anemia, she was recently transferred to [facility] for GI evaluation for lower GI bleed but she tells me that they could not find where she was bleeding from and she was sent back to the senior living. Her hemoglobin is about stable from prior, she denies any active bloody or black stools. She is not exactly sure what happened but denies any recent issues, no recent health concerns in the last few weeks. I spoke to [facility], nursing staff informing that this morning when the nursing staff went in to check up on Daksha, for breakfast, she was nonresponsive sitting in her wheelchair, she would not wake up to sternal rub her vitals were within normal limits, but she was not waking up, they were worried that she had a stroke, but no reported focal weakness, no reported facial droop or slurring of her words. No reported falls. Patient does report chest pain, anterior, nonradiating, she is not sure exactly how long she has had it for Patient was admitted to [facility] for unresponsive episode, etiology unclear, could be from hyperammonemia from liver cirrhosis and UTI, no repeat episodes during the hospitalization, cardiac echo no acute findings, carotid artery ultrasound no acute findings, no strokelike symptoms, no significant telemetry events during hospitalization, continue to monitor as outpatient For hyperammonemia, received inpatient lactulose, due to his liver cirrhosis, clinically improved, discharged on p.o. lactulose as outpatient For her UTI, urine culture showing VRE Enterococcus, Pseudomonas species, due to her multiple drug allergies, patient received 5 days of inpatient meropenem, completed antibiotic therapy as inpatient. For her VRE Enterococcus, will be discharged on 5 remaining days of Zyvox History of anemia, history of lower GI bleed, he remained hemodynamically stable, hemoglobin trended downwards during hospitalization, Hemoccult stool negative for blood, hemoglobin was 7.3 received 1 unit PRBC before discharge For her sacral decubitus ulcer stage I to continue wound care [facility] For her CHF exacerbation with bilateral extremity edema, required IV diuretics, metolazone, received inpatient diuresis over 5 L, discharged on her home Lasix 40 mg daily with replacement therapy with spironolactone Physical Exam Const: COMMON NORMALS: no acute distress and patient oriented x3 Resp: COMMON NORMALS: normal respiratory effort, No retractions, No use of accessory muscles and clear to auscultation bilaterally AUSCULTATION: clear to auscultation bilaterally Cardio: COMMON NORMALS: regular rate, regular rhythm, S1 normal heart sound present and S2 normal heart sound present RATE: regular rate RHYTHM: regular rhythm HEART SOUNDS: S1 normal heart sound present and S2 normal heart sound present GI: COMMON NORMALS: Normal to inspection, nondistended, normoactive bowel sounds present and non-tender Extremity: COMMON NORMALS: no pedal edema Neuro: COMMON NORMALS: patient oriented x3 Psych: COMMON NORMALS: mental status grossly normal Discharge Data Studies Completed and Pending Completed Studies During Hospitalization Category Date Time Status CT head wo con* [id number] Stat Cat Scan 02/28/24 08:35 Completed XR chest 1V portable [id number] Stat Exams 07/21/23 08:35 Completed CV carotid duplex BI* [id number] Routine Ultrasound 07/21/23 17:18 Completed CV. echo complete* [id number] Routine Ultrasound 07/21/23 17:18 Completed Pending at discharge Category Date Time Status Basic Metabolic Panel AM LABS Lab 07/27/23 04:00 Ordered Basic Metabolic Panel AM LABS Lab 07/28/23 04:00 Ordered Complete Blood Count w/Auto AM LABS Lab 07/27/23 04:00 Ordered Complete Blood Count w/Auto AM LABS Lab 07/28/23 04:00 Ordered Leukocyte Reduced RBC Stat Lab 07/26/23 08:25 Ordered NT Pro B Type Natriuretic Pept QAM Lab 07/27/23 06:00 Ordered NT Pro B Type Natriuretic Pept QAM Lab 07/28/23 06:00 Ordered OVA and Parasites, Conc and PE Routine Lab 07/24/23 15:06 Received Salmonella / Shigella / Campy Routine Lab 07/24/23 15:06 Received Type and Screen Stat Lab 07/26/23 08:25 Ordered Laboratory Results WBC 2.13 10^3/uL (3.29-11.43) L 07/26/23 05:32 RBC 2.42 10^6/uL (3.85-5.65) L 07/26/23 05:32 Hgb 7.30 g/dL (11.27-16.99) L 07/26/23 05:32 Hct 25.4 % (36-47) L 07/26/23 05:32 MCV 105.0 fl (85-98) H 07/26/23 05:32 MCH 30.2 pg (27-33) 07/26/23 05:32 MCHC 28.7 g/dL (30-55) L 07/26/23 05:32 RDW 19.3 % (12.1-15.1) H 07/26/23 05:32 Plt Count 59 10^3/cmm (157-399) L 07/26/23 05:32 MPV 10.9 fL (7.4-10.4) H 07/26/23 05:32 Neut % (Auto) 46.8 % 07/26/23 05:32 Lymph % (Auto) 28.2 % 07/26/23 05:32 [place] % (Auto) 12.7 % 07/26/23 05:32 Eos % (Auto) 11.3 % 07/26/23 05:32 Baso % (Auto) 0.5 % 07/26/23 05:32 Neut # (Auto) 1.00 10^3/uL (1.8-7.7) L 07/26/23 05:32 Lymph # (Auto) 0.6 10^3/uL (0.8-4.8) L 07/26/23 05:32 [place] # (Auto) 0.3 10^3/uL (0.2-0.9) 07/26/23 05:32 Eos # (Auto) 0.2 10^3/uL (0.0-0.8) 07/26/23 05:32 Baso # (Auto) 0.0 10^3/uL (0.0-0.1) 07/26/23 05:32 Nucleated RBC % (auto) 0 % 07/26/23 05:32 Nucleated RBCs # 0.0 /100WBC 07/26/23 05:32 PT 17.00 SECONDS (12.1-14.9) H 07/21/23 21:32 INR 1.34 (0.8-1.2) H 07/21/23 21:32 APTT 30.5 SECONDS (23.9-36.7) 07/22/23 04:02 Specimen Type Arterial 07/21/23 17:48 Sample Site Brachial, right 07/21/23 17:48 ABG pH 7.54 (7.35-7.45) H 07/21/23 17:48 ABG pCO2 37.2 mmHg (35-45) 07/21/23 17:48 ABG pO2 82.0 mmHg (80.0-100.0) 07/21/23 17:48 ABG PO2/FiO2 Ratio 0 07/21/23 17:48 ABG HCO3 31.5 mmol/L (22-26) H 07/21/23 17:48 ABG Base Excess 8.3 mmol/L (-2.0-2.0) H 07/21/23 17:48 Kunal Test Pos 07/21/23 17:48 Hematocrit 29.9 % (37-47) L 07/21/23 17:48 O2 Delivery Device Nc 07/21/23 17:48 O2 Liters/Min 0.5 % 07/21/23 17:48 FiO2 26.0 % 07/21/23 17:48 Offset Printing Pressmen ID Monrp 07/21/23 17:48 Sodium 135 mmol/L (136-145) L 07/26/23 05:32 Potassium 3.8 mmol/L (3.5-5.1) 07/26/23 05:32 Chloride 99 mmol/L (98-107) 07/26/23 05:32 Carbon Dioxide 29 mmol/L (22-29) 07/26/23 05:32 Anion Gap 10.8 (5-19) 07/26/23 05:32 BUN 27 mg/dL (8-23) H 07/26/23 05:32 Creatinine 0.7 mg/dL (0.5-0.9) 07/26/23 05:32 GFR Calculation Not Reportable 07/26/23 05:32 Glucose 86 mg/dL (65-115) 07/26/23 05:32 POC Glucose 103 mg/dL (70-110) 07/21/23 08:26 Calculated Osmolality 284 mOsm/kg (285-295) L 07/26/23 05:32 Lactic Acid 2.4 mmol/L (0.5-2.2) H 07/21/23 21:32 Lactic Acid (Sepsis) 1.7 mmol/L (0.5-2.2) 07/21/23 23:55 Calcium 8.1 mg/dL (8.5-10.5) L 07/26/23 05:32 Phosphorus 3.1 mg/dL (2.5-4.5) 07/25/23 08:52 Magnesium 1.7 mg/dL (1.7-2.3) 07/25/23 08:52 Total Bilirubin 1.6 mg/dL (0.15-1.2) H 07/25/23 08:52 AST 16 U/L (0-32) 07/25/23 08:52 ALT 7 U/L (0-33) 07/25/23 08:52 Alkaline Phosphatase 70 U/L (35-105) 07/25/23 08:52 Ammonia 43 umol/L (11-51) 07/25/23 08:52 Troponin T Baseline 30 ng/L (0-10) H 07/21/23 14:20 Troponin T 120 Minute 36.62 ng/L (0-10) H 07/21/23 16:26 Delta Troponin T 6.62 ABS# (0-10) 07/21/23 16:26 Troponin T Hi Sens 6Hr 28.46 ng/L (0-10) H 07/21/23 21:16 Troponin T Hi Sens 6Hr Delta -1.54 ng/L (0-12) L 07/21/23 21:16 NT-Pro-B Natriuret Pep 1064 pg/mL (0-450) H 07/26/23 05:32 Total Protein 5.9 g/dL (6.6-8.7) L 07/25/23 08:52 Albumin 3.3 g/dL (3.5-5.2) L 07/25/23 08:52 Globulin 2.6 g/dL (1.3-4.6) 07/25/23 08:52 Procalcitonin 0.12 ng/mL (0-0.5) 07/21/23 08:52 TSH 3.75 uIU/mL (0.27-4.20) 07/21/23 08:52 Urine Color Yellow (Yellow) 07/21/23 09:20 Urine Appearance Clear (CLEAR) 07/21/23 09:20 Urine pH 7 (5-7) 07/21/23 09:20 Ur Specific [place] 1.005 (1.005-1.030) 07/21/23 09:20 Urine Protein Neg (Negative) 07/21/23 09:20 Urine Glucose (UA) Norm (Normal) 07/21/23 09:20 Urine Ketones Negative (Negative) 07/21/23 09:20 Urine Blood 2+ (Negative) H 07/21/23 09:20 Urine Nitrate Negative (Negative) 07/21/23 09:20 Urine Bilirubin Neg (Negative) 07/21/23 09:20 Urine Urobilinogen 1 mg/dL (Negative) H 07/21/23 09:20 Ur Leukocyte Esterase 2+ (Negative) H 07/21/23 09:20 Urine RBC 0-4 /hpf (0-2) H 07/21/23 09:20 Urine WBC 10-15 /hpf (0-5) H 07/21/23 09:20 Ur Squamous Epith Cells 0-4 /hpf (0-5) H 07/21/23 09:20 Calcium Oxalate Crystal 5-10 /hpf H 07/21/23 09:20 Amorphous Sediment Not Reportable 07/21/23 09:20 Urine Bacteria 3+ /hpf (NONE) H 07/21/23 09:20 Urine Mucus None /hpf 07/21/23 09:20 C. difficile (PCR) Negative (Negative) 07/25/23 06:27 Vitals Last Vital Signs Temp 98.0 F 07/26/23 08:00 Pulse 86 07/26/23 08:50 Resp 18 07/26/23 08:45 BP 111/65 07/26/23 08:00 Pulse Ox 98 07/26/23 08:45 O2 Del Method Nasal Cannula 07/26/23 08:45 O2 Flow Rate 2 07/26/23 08:45 Discharge Plan Discharge Patient Disposition: Xfer SNF Condition: Stable Prescriptions: New linezolid 600 mg Tablet 600 mg PO Q12H 5 Days Qty: 10 0RF lactulose 20 gram/30 mL Solution 20 g PO Q24H 30 Days Qty: 900 0RF Continued magnesium hydroxide [Milk of Magnesia] 400 mg/5 mL suspension 30 ml PO Q24H PRN (Reason: Constipation) sertraline 25 mg tablet 25 mg PO DAILY@07 polyethylene glycol 3350 [Miralax] 17 gram/dose powder 17 gm PO DAILY@07 potassium chloride 10 mEq tablet extended release 10 meq PO BID Qty: 60 0RF morphine 20 mg/5 mL (4 mg/mL) solution 20 mg PO Q4H PRN (Reason: pain) Rx Instructions: Morphine Sulfate Oral Solution 20MG/5ML(Morphine Phone Sulfate) Give 0.25 ml by mouth every 2 hours as needed for pain acetaminophen 325 mg Tablet 650 mg PO Q6H PRN (Reason: Pain) miconazole nitrate 2 % Cream 1 applic TOPICAL Q8H PRN (Reason: Itching) ferrous sulfate 325 mg (65 mg iron) Tablet 325 mg PO DAILY@08 budesonide 0.5 mg/2 mL Suspension For Nebulization 0.5 mg inhalation Q12H multivitamin with iron Tablet 1 tab PO DAILY@07 zinc oxide 40 % Ointment 1 applic TOPICAL BID solifenacin [Vesicare] 5 mg tablet 5 mg PO DAILY@07 pantoprazole 40 mg tablet,delayed release (DR/EC) 40 mg PO BID gabapentin 400 mg Capsule 400 mg PO TID furosemide 40 mg tablet 40 mg PO BID Aldactone 25 mg Tablet 25 mg PO DAILY ondansetron 4 mg Tablet,Disintegrating 4 mg PO Q4H PRN (Reason: Nausea And Vomiting) Held fosfomycin tromethamine 3 gram Packet 1 packet PO Q3D Hold Instructions: Resume on 08/02/23. Discharge Orders: Discharge Order (Routine); Ordered 07/26/23 Ordered By: Kevin Aguero Referrals: [facility] [Outside] Sudheer Wood MD [Primary Care Provider] - Discharge Activity: Resume usual activity Patient Instructions: Altered Mental Status (ED), Opioid Safety Activity Restrictions/Additional Instructions: - Please have senior living recheck hemoglobin tomorrow Discharge Attestations Time Spent in Discharge Care*: greater than 30 min Status at Discharge: Cognitive status at discharge: cognitively intact, Behavioral status at discharge: cooperative, Quality Metrics Clinical Quality Measures [ No reported AMI, CVA or VTE this stay] Coding Level of Care Code 66090 Total time (in minutes) for Discharge: 45 Diagnoses Acute encephalopathy G93.40 CHF exacerbation I50.9 Urinary tract infection N30.01 Hematuria presence: with hematuria Urinary tract infection type: acute cystitis Chronic anemia D64.9 Sacral decubitus ulcer, stage II L89.152 Hyperammonemia E72.20 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
[2023-07-26] MEDS: metOLazone 5 MG Tablet PO (10:52)
--- NOTE | 2023-07-26 10:54 | PC.NURSE ---
Pt is expected to d/c back to [facility] following blood infusion.
--- NOTE | 2023-07-26 11:01 | PC.SOCIAL ---
IMM Update pg 2 of IMM updated and reviewed w/ patient. Copy provided and copy dated, initialed and placed in chart.
[2023-07-26 11:32] LABS: SARS Covid-2 Antigen negative (Negative)
--- NOTE | 2023-07-26 15:11 | PC.NURSE ---
This nurse d/c trujillo catheter at 1510. Pt tolerated well. Will notify [facility].
--- NOTE | 2023-07-26 15:42 | PC.NURSE ---
This nurse called report to Na at [facility] at 1540. Ready transport expected to arrive here at 1600 to transport pt to [facility].
== END 2023-07-26 17:48 | disposition skilled nursing facility (03) | DRG 642 ==
LOC: ER 13:54 → MEDSURG 14:38
PROVIDERS: Admitting Provider Family Medicine; Emergency Provider Emergency Medicine; PCP Internal Medicine; Visit Provider Family Medicine
DX: E72.20 Disorder of urea cycle metabolism, unspecified (principal); N30.01 Acute cystitis with hematuria; G93.40 Encephalopathy, unspecified; D68.9 Coagulation defect, unspecified; Z16.21 Resistance to vancomycin; D64.9 Anemia, unspecified; K74.60 Unspecified cirrhosis of liver; Z66 Do not resuscitate; Z86.73 Personal history of transient ischemic attack (TIA), and cerebral infarction without residual deficits; B96.5 Pseudomonas (aeruginosa) (mallei) (pseudomallei) as the cause of diseases classified elsewhere; B95.2 Enterococcus as the cause of diseases classified elsewhere; L89.151 Pressure ulcer of sacral region, stage 1; R13.10 Dysphagia, unspecified; I50.9 Heart failure, unspecified; I11.0 Hypertensive heart disease with heart failure
CPT/HCPCS: 36415; 36416; 36430; 36600; 70450; 71045; 80048; 80053; 81001; 82140; 82274; 82728; 82803; 82962; 83540; 83550; 83605; 83630; 83735; 83880; 84100; 84145; 84443; 84484; 85025; 85610; 85730; 86850; 86900; 86920; 87045; 87077; 87086; 87177; 87186; 87209; 87426; 87427; 87449; 87493; 93005; 93306; 93880; 94640; 94664; 96365; 97161; 97166; 99214; 99285; G0378; J0696; J1940; J2020; J2185; J3480; J7040; J7626; P9016; P9046

== ENCOUNTER 2023-08-16 10:40 | Oncology outpatient (recurring) (ONCR) | payer MEDICARE, MEDICAID, SELFPAY ==
--- NOTE | 2023-08-16 11:42 | PC.NURSE ---
Attempted to obtain labs from pt x5. Pt very difficult IV stick. Unable to obtain labs at this time. Dr. Woodward's nurse Kiera notified.
== END 2023-08-22 23:59 | disposition home or self-care (01) ==
PROVIDERS: PCP Internal Medicine; Visit Provider Internal Medicine Medical Oncology
DX: Z53.9 Procedure and treatment not carried out, unspecified reason (principal); D64.9 Anemia, unspecified; D69.6 Thrombocytopenia, unspecified; Z79.899 Other long term (current) drug therapy; D50.0 Iron deficiency anemia secondary to blood loss (chronic); K74.60 Unspecified cirrhosis of liver; D73.1 Hypersplenism; K62.5 Hemorrhage of anus and rectum
CPT/HCPCS: 99213

== ENCOUNTER 2023-09-02 07:10 | Emergency (ER) | payer MEDICARE, MEDICAID, SELFPAY ==
[2023-09-02 07:11] VITALS: BP 144/63; PULSE 91; TEMP 37.3; O2SAT 99; BMI 27.4
--- NOTE | 2023-09-02 07:26 | XRR_ITS ---
PROCEDURE INFORMATION: Exam: XR Left Shoulder Exam date and time: 09/02/2023 7:44 AM Age: 83 years old Clinical indication: Injury or trauma; Fall; Blunt trauma (contusions or hematomas); Shoulder; Left TECHNIQUE: Imaging protocol: Radiologic exam of the left shoulder. Views: 2 or more views. COMPARISON: CR XR shoulder LT min 2V* [id number] 09/29/2018 3:36 AM FINDINGS: Bones/joints: No acute fracture or dislocation. Lungs: Calcified granuloma projects over the central chest. Soft tissues: Superficial soft tissues are within normal limits. XR/XR shoulder LT min 2V* [id number] IMPRESSION: No acute fracture or dislocation.
--- NOTE | 2023-09-02 07:26 | XRR_ITS ---
PROCEDURE INFORMATION: Exam: XR Left Humerus Exam date and time: 09/02/2023 7:49 AM Age: 83 years old Clinical indication: Injury or trauma; Fall; Blunt trauma (contusions or hematomas); Shoulder; Left TECHNIQUE: Imaging protocol: Radiologic exam of the left humerus. Views: 2 or more views. COMPARISON: CR XR shoulder LT min 2V* [id number] 09/02/2023 7:44 AM FINDINGS: Bones/joints: No acute fracture or dislocation. Soft tissues: Superficial soft tissues are within normal limits. XR/[place] [id number] IMPRESSION: No acute fracture or dislocation.
--- NOTE | 2023-09-02 07:32 | XRR_ITS ---
PROCEDURE INFORMATION: Exam: XR Cervical Spine Exam date and time: 09/02/2023 7:52 AM Age: 83 years old Clinical indication: Injury or trauma; Fall; Blunt trauma TECHNIQUE: Imaging protocol: Radiologic exam of the cervical spine. Views: 2 or 3 views. COMPARISON: CT cervical spin wo con* [id number] 07/22/2021 5:59 PM FINDINGS: Bones/joints: The lateral elements of C1 and C2 appear appropriately aligned on open-mouth odontoid view. The dens; however, appears laterally positioned. This is presumed to be artifactual secondary to projection. Cervical spine is visualized on lateral view to the level of C5. No distinct displaced osseous fractures. No spondylolisthesis of the observed segments. Soft tissues: Superficial soft tissues are within normal limits. XR/XR cervical spine 3V* [id number] IMPRESSION: The lateral elements of C1 and C2 appear appropriately aligned on open-mouth odontoid view. The dens; however, appears laterally positioned. This is presumed to be artifactual secondary to projection. Recommend CT cervical spine to confirm.
[2023-09-02 07:49] VITALS: BP 122/59; PULSE 96; O2SAT 100
--- NOTE | 2023-09-02 07:52 | ED_ITS ---
HPI - Extremity Problem General: Chief complaint: Extremity Injury, Upper Stated complaint: FALL; LEFT SHOULDER PAIN Time Seen by Provider: 09/02/23 07:12 Source: patient Mode of arrival: ambulatory History of Present Illness: 83-year-old female resident of [facility] presents emergency room via EMS after slipping and falling out of her chair she basically slid to the ground is complaining of left shoulder pain no obvious deformity refers most of the pain to the shoulder joint itself she did not strike her head did not lose conscious no skin tears or abrasions no other injuries. PFSH ED PFSH: Medical History Cystitis Cirrhosis Bacteremia Thrombocytopenia Diabetes Gout Hypothyroidism Acute UTI Non-ST elevation AL (NSTEMI) Confusion Urolithiasis Retained ureteral stent Cystitis cystica History of CVA (cerebrovascular accident) GERD (gastroesophageal reflux disease) Peripheral artery disease Hypertension Chronic back pain Osteoarthritis Polyneuropathy Post herpetic neuralgia CAD in [place] artery Chronic cystitis Surgical History H/O bladder repair surgery S/P tonsillectomy History of cataract surgery History of cholecystectomy H/O: hysterectomy Hip fracture Family History Father Colon cancer Diabetes Heart disease Hypertension Stroke Sister Heart disease Hypertension Mother Hypertension Brother Hypertension Grandmother Hypertension Grandfather Hypertension Other Renal cancer Denies family history of Ovarian cancer Prostate cancer Breast cancer Uterine cancer Thyroid disease Social History Smoking and tobacco/nicotine status: never used tobacco/nicotine Course Vital Signs: Vital signs: Vital Signs Temperature 99.2 F 09/02/23 07:11 Pulse Rate 96 09/02/23 08:09 Blood Pressure 111/55 09/02/23 09:00 Pulse Oximetry 98 09/02/23 09:00 Oxygen Delivery Me thod Room Air 09/02/23 09:00 Oxygen Flow Rate 1 09/02/23 08:09 MDM - Extremity (Nontraumatic) Medical Decision Making Imaging reviewed. X-rays of the shoulder and humerus are negative. On the cervical spine there does appear to be a step-off that is similar to what she had previously [facility] was also concerned about a CT of the neck was ordered and CT did not not show any acute fractures shows lots of chronic old arthritic changes and degenerative changes. Reviewed with the patient discharged back to the assisted can use Tylenol and ice as needed for pain. Medical Records I reviewed the patient's medical records. Lab Data I reviewed the patient's lab results. Radiology Impressions Humerus X-Ray 09/02/23 07:26 IMPRESSION: No acute fracture or dislocation. Shoulder X-Ray 09/02/23 07:26 IMPRESSION: No acute fracture or dislocation. Cervical Spine X-Ray 09/02/23 07:32 IMPRESSION: The lateral elements of C1 and C2 appear appropriately aligned on open-mouth odontoid view. The dens; however, appears laterally positioned. This is presumed to be artifactual secondary to projection. Recommend CT cervical spine to confirm. ADDENDUM: 09/02/23 0920 ADDENDUM: THIS REPORT CONTAINS FINDINGS THAT MAY BE CRITICAL TO PATIENT CARE. The findings were verbally communicated via telephone conference with Dr. Gamino at 9:19 AM CDT on 09/02/2023. The findings were acknowledged and understood. All radiology interpretation(s) finalized by discharge Discharge Plan Discharge Patient Disposition: Home Clinical Impression: Acute shoulder pain, Fall Condition: Stable Prescriptions: No Action magnesium hydroxide [Milk of Magnesia] 400 mg/5 mL suspension 30 ml PO Q24H PRN (Reason: Constipation) sertraline 25 mg tablet 25 mg PO DAILY@07 polyethylene glycol 3350 [Miralax] 17 gram/dose powder 17 gm PO DAILY@07 potassium chloride 10 mEq tablet extended release 10 meq PO BID Qty: 60 0RF morphine 20 mg/5 mL (4 mg/mL) solution 20 mg PO Q4H PRN (Reason: pain) Rx Instructions: Morphine Sulfate Oral Solution 20MG/5ML(Morphine Phone Sulfate) Give 0.25 ml by mouth every 2 hours as needed for pain acetaminophen 325 mg Tablet 650 mg PO Q6H PRN (Reason: Pain) miconazole nitrate 2 % Cream 1 applic TOPICAL Q8H PRN (Reason: Itching) ferrous sulfate 325 mg (65 mg iron) Tablet 325 mg PO DAILY@08 budesonide 0.5 mg/2 mL Suspension For Nebulization 0.5 mg inhalation Q12H multivitamin with iron Tablet 1 tab PO DAILY@07 zinc oxide 40 % Ointment 1 applic TOPICAL BID solifenacin [Vesicare] 5 mg tablet 5 mg PO DAILY@07 Calcium 600 600 mg calcium (1,500 mg) Tablet 600 mg PO DAILY lactulose 20 gram/30 mL Solution 20 g PO DAILY pantoprazole 40 mg tablet,delayed release (DR/EC) 40 mg PO BID gabapentin 400 mg Capsule 400 mg PO TID furosemide 40 mg tablet 40 mg PO BID spironolactone [Aldactone] 25 mg Tablet 25 mg PO DAILY ondansetron 4 mg Tablet,Disintegrating 4 mg PO Q4H PRN (Reason: Nausea And Vomiting) Discharge Orders: Discharge ED (Routine); Ordered 09/02/23 Ordered By: Jamie Gamino Referrals: Sudheer Wood MD [Primary Care Provider] - Discharge Diet: Usual diet Discharge Activity: Increase activity as tolerated Patient Instructions: Opioid Safety, Pain Management Activity Restrictions/Additional Instructions: Thank you for choosing [facility] for your healthcare needs today. Please realize this is an emergency room and that we are providing you with a medical screening exam and this may not be complete and all inclusive of all the testing and or work up that you may need to determine your ailment or severity of your illness. It is very important that you follow up as instructed or that you return to the Emergency Department should you have concerns or if your condition changes or worsens in any way. You were seen today after a fall x-rays did not show any acute fractures. There was significant arthritic changes in your neck CT did not show any acute fracture. Follow-up with your primary care doctor. 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
[2023-09-02] MEDS: ketorolac 30 mg/mL INJ IM (08:07)
[2023-09-02 08:09] VITALS: BP 121/73; PULSE 96; O2SAT 99
[2023-09-02 08:30] VITALS: BP 126/57; O2SAT 95
--- NOTE | 2023-09-02 08:48 | CT_ITS ---
WS: [id number] CT CERVICAL SPINE HISTORY: trauma, fell 1 day ago. TECHNIQUE: Contiguous 2.0 mm axial imaging performed through the entire cervical spine. Sagittal and coronal reformats also performed. All CT scans at [facility] use at least one of these dose o ptimization techniques: automated exposure control; mA and/or kV adjustment per patient size (include s targeted exams where dose is matched to clinical indication); or iterative reconstruction. DLP: 162.67 mGy.cm COMPARISON: 07/22/2021 Marked increase in cervical lordosis. C6 anterolisthesis by 2 mm. No associated fracture. Facet joint s are significantly narrowed with arthropathy. Fusion across the LEFT C2-3 facet joints. Lateral masses of C1 and C2 are aligned. The odontoid process is intact. Bilateral facet joint arthritis and foraminal stenosis throughout the cervical spine. No fractures ar e identified. There is a very slight cortical step-off along the superior endplate of C7 which was al so present on the prior study. No acute abnormality at the lung apices. There is a small layering pleural effusion LEFT thorax. IMPRESSION: 1. Advanced degenerative changes throughout the cervical spine with increase in the cervical lordosi s. 2. No fracture is identified. Facet joint arthritis is increasing since 2021. 3. Layering LEFT pleural effusion is noted at the apex. This pleural effusion was also noted on a est radiograph of 07/21/2023.
[2023-09-02 09:00] VITALS: BP 111/55; O2SAT 98
[2023-09-02] MEDS: HYDROcodone-acetaminophen 5-325 mg Tablet 1 TAB PO (13:14)
== END 2023-09-02 15:03 | disposition home or self-care (01) ==
PROVIDERS: Emergency Provider Family Medicine; PCP Internal Medicine
DX: M25.512 Pain in left shoulder (principal); E11.9 Type 2 diabetes mellitus without complications; I25.2 Old myocardial infarction; Z86.73 Personal history of transient ischemic attack (TIA), and cerebral infarction without residual deficits; I10 Essential (primary) hypertension; I25.10 Atherosclerotic heart disease of native coronary artery without angina pectoris; W07.XXXA Fall from chair, initial encounter
CPT/HCPCS: 72040; 72125; 73030; 73060; 96372; 99284; J1885

== ENCOUNTER 2023-09-16 09:30 | Oncology outpatient (recurring) (ONCR) | payer MEDICARE, MEDICAID, SELFPAY ==
[2023-08-26 08:46] VITALS: BP 103/66; PULSE 94; RESP 17; TEMP 36.5; O2SAT 98
[2023-08-26 08:46] LABS: Basophils % 0.6 %; Eosinophils # 0.4 10^3/uL (0.0-0.8); Eosinophils % 7.1 %; Hematocrit 29.1 % (36-47); Lymphocytes # 0.7 10^3/uL (0.8-4.8); Lymphocytes % 12.4 %; Mean Corpuscular HGB Conc 29.9 g/dL (30-55); Mean Corpuscular Hemoglobin 30.1 pg (27-33); Mean Corpuscular Volume 100.7 fl (85-98); Mean Platelet Volume 10.9 fL (7.4-10.4); Monocytes # 0.7 10^3/uL (0.2-0.9); Monocytes % 12.2 %; Neutrophils # 3.59 10^3/uL (1.8-7.7); Neutrophils % 67.5 %; Nucleated Red Blood Cells % 0 %; Platelet Count 116 10^3/cmm (157-399); Red Blood Count 2.89 10^6/uL (3.85-5.65); Red Cell Distribution Width 18.5 % (12.1-15.1); White Blood Count 5.32 10^3/uL (3.29-11.43)
[2023-08-26 09:05] LABS: Alanine Aminotransferase 10 U/L (0-33); Albumin Level 2.9 g/dL (3.5-5.2); Alkaline Phosphatase 114 U/L (35-105); Anion Gap 11.7 (5-19); Aspartate Amino Transferase 20 U/L (0-32); Blood Urea Nitrogen 19 mg/dL (8-23); Calcium 8.5 mg/dL (8.5-10.5); Carbon Dioxide 28 mmol/L (22-29); Chloride 104 mmol/L (98-107); Ferritin 232 ng/mL (15-150); Globulin 3.8 g/dL (1.3-4.6); Glucose 98 mg/dL (65-115); Iron 56 ug/dL (37-145); Lactate Dehydrogenase 164 U/L (135-214); Osmolality Calculated 292 mOsm/kg (285-295); Percent Saturation 38.8 % (20-50); Potassium 3.7 mmol/L (3.5-5.1); Sodium 140 mmol/L (136-145); Total Bilirubin 0.9 mg/dL (0.15-1.2); Total Iron Binding Capacity 144 mcg/dl; Total Protein 6.7 g/dL (6.6-8.7); Unsaturated Iron Binding 88 ug/dL (112-347)
== END 2023-09-21 23:59 | disposition home or self-care (01) ==
PROVIDERS: PCP Internal Medicine; Visit Provider Internal Medicine Medical Oncology
DX: Z53.9 Procedure and treatment not carried out, unspecified reason (principal)
CPT/HCPCS: 80053; 82728; 83540; 83550; 83615; 85025